=== PATIENT | female | born 1970 | race Caucasian/White ===

== ENCOUNTER → 2018-04-01 11:36 | Outpatient (CLI) | payer MEDICARE, SELFPAY ==
[2018-04-01 12:24] LABS: Absolute Neutrophil Count 1.7 X10^3/uL (2.0-7.7); Basophil# 0.03 X10^3/uL; Basophil% 0.7 % (0-1); Eosinophil# 0.09 X10^3/uL; Eosinophils% 2.1 % (0-5); Hematocrit 43.5 % (37-47); Lymphocyte % 47.9 % (19-41); Mean Corp Hgb Conc 34.5 g/gl (32-36); Mean Corpuscular Hgb 32.6 pg (27.0-32.0); Mean Corpuscular Volume 94.6 fL (81-99); Mean Platelet Vol. 11.3 fl (6.2-12.0); Monocyte# 0.44 X10^3/uL; Neutrophil # 1.71 X10^3/uL (2.7-7.7); Neutrophil % 39.1 % (47-70); Platelet Count 197 K/mm3 (150-450); RBC Distribution Width CV 11.6 % (11.6-14.6); RBC Distribution Width SD 39.9 fl (35.1-43.9); White Blood Count 4.4 K/mm3 (4.4-11.0)
[2018-04-01 12:25] LABS: POSITIVE COUNT NO; POSITIVE DIFFERENTIAL NO; POSITIVE MORPHOLOGY NO
[2018-04-01 12:57] LABS: Progesterone Level 0.19 ng/mL (See Comment)
[2018-04-01 13:54] LABS: ALB/GLOB Ratio 0.9 RATIO (0.9-2.4); AST(SGOT) 21 U/L (15-37); Alanine Aminotransfer ALT/SGPT 26 U/L (13-56); Albumin, Serum 3.4 g/dL (3.2-5.0); Alkaline Phosphatase 80 U/L (45-117); Anion Gap 7 (5-15); BUN 12 mg/dL (7-18); BUN/Creat Ratio 17.3 RATIO (10-20); Calcium,Total 8.6 mg/dL (8.5-10.1); Chloride 107 mmol/L (98-107); EST Glomerular Filtration Rate 96 mL/min (>60); Est Glom Filt Rate - Afr Amer 116 mL/min (>60); Estradiol 23.8 pg/mL; Globulin 3.7 g/dL (2.2-4.2); Glucose 94 mg/dL (74-106); Potassium 4.1 mmol/L (3.5-5.1); Protein, Total 7.1 g/dL (6.4-8.2); Sodium Level 140 mmol/L (136-145)
== END ==
PROVIDERS: Family Provider Family Medicine; PCP Family Medicine
DX: R63.5 Abnormal weight gain (principal); L85.3 Xerosis cutis; R61 Generalized hyperhidrosis; Z13.29 Encounter for screening for other suspected endocrine disorder; Z13.220 Encounter for screening for lipoid disorders
CPT/HCPCS: 36415; 80053; 82670; 84144; 84443; 85025

== ENCOUNTER 2019-01-10 14:41 | Emergency (ER) | payer MEDICARE, SELFPAY ==
[2019-01-10 14:42] VITALS: BP 135/97; PULSE 108; RESP 16; TEMP 36.1; O2SAT 96; BMI 20.2
--- NOTE | 2019-01-10 14:54 | RAD_ITS ---
STUDY: X-RAY - RIGHT TIBIA AND FIBULA REASON FOR EXAM: Female, 48 years old. Bump of the lateral leg without injury TECHNIQUE: 2 view(s) of the tibia and fibula were obtained. COMPARISON: None. FINDINGS: Normal visualized tibia. Normal visualized fibula. The soft tissue structures are unremarkable. RAD/Tibia & Fibula 2 Views IMPRESSION: Normal x-ray examination of the tibia and fibula. Electronically Signed: Evans Hassan MD (Brooks) at 15:27 EDT , Service support ,
--- NOTE | 2019-01-10 14:58 | ED.DCSUM_ITS ---
- ER Visit Summary Date of Service: 01/10/19 Chief Complaint: Pain History of Present Illness: The patient is a 48 F with pain in her right aguilar. She noticed the pain yesterday. It feels like pain she had several years ago when she had a fracture of her right lower leg. At that time, she did not have trauma, and her fracture was possibly attributed to her underlying history of neurofibromatosis. She does feel a lump in the area where she is having pain. Denies any calf swelling or tenderness. Denies any history of DVTs. No other related symptoms. Physical Examination: Right lower leg shows tenderness and induration at her distal third of her tibia laterally. Overlying skin unremarkable. Otherwise exam unremarkable. Test Results: X-rays ordered. Emergency Department Course and Treatment: Patient declined pain medicine. X-rays were negative. I do not visualize a fracture or other abnormality. No masses or abnormal findings. This is likely a soft tissue lesion. It may or may not be related to her neurofibromatosis. At this point, the patient is appropriate for outpatient follow-up. She may need further imaging. There is no indication for antibiotics, incision, or any other emergent treatment for this. Treatment Plan: Rest, ice, elevate. [id number] remedies for pain. Outpatient follow-up. Disposition: Discharge Impression: 1. Soft tissue swelling right leg This note was generated with [employer] dictation software. It may contain incorrect words, spelling, and punctuation that were not noted in review of the chart prior to signing ED Disposition - Plan for ED Patient: Referrals: [facility] ,Out of [Primary Care Provider] -
--- NOTE | 2019-01-10 15:40 | ED.DEP ---
ED Disposition - Plan for ED Patient: Instructions: CONTUSION, Soft Tissue Referrals: [facility] Doctor,Out of [Primary Care Provider] -
[2019-01-10 15:47] VITALS: RESP 15
== END 2019-01-10 15:47 | disposition home or self-care (01) ==
PROVIDERS: Emergency Provider Emergency Medicine
DX: M79.89 Other specified soft tissue disorders (principal)
CPT/HCPCS: 73590; 99282

== ENCOUNTER 2021-08-01 20:08 | Emergency (ER) | payer MEDICARE, SELFPAY ==
[2021-08-01 20:09] VITALS: BP 142/107; PULSE 98; RESP 16; TEMP 36.4; O2SAT 100; BMI 24.3
--- NOTE | 2021-08-01 21:11 | EDS_ITS ---
HPI History of Present Illness Chief Complaint: Edema Informant: patient Narrative Narrative: Patient presents with worsening swelling of the left leg. This started in October or November when she was exposed to red tide and justin salt water. She also states she gets chemotherapy for her neurofibromatosis and chemotherapy might be causing it. She was going to talk to her chemo doctor but he ended up leaving for [place] and never told her. Her primary physician did an ultrasound but it was about 2 months ago. She had some blood work done 3 or 4 months ago. She is here today because the left leg seems to be swelling more. Is normally just the foot but now is the lower part of the leg. She has no chest pain or trouble breathing or other complaints. She has no acute trauma. No fevers or chills. Nothing consistently makes it better or worse. PFSH [facility] Medical History Edema of left lower extremity Neurofibromatosis Home Medications doxepin 150 mg PO QHS 11/27/16 [History Last Taken Unknown] zolpidem 10 mg PO QHS PRN PRN 11/27/16 [History Last Taken Unknown] lamotrigine 75 mg PO QHS 01/10/19 [History Last Taken Unknown] selumetinib-vitamin E TPGS [Koselugo] 25 cap PO BID 08/01/21 [History Last Taken Unknown] Allergy/AdvReac Type Severity Reaction Status Date / Time No Known Allergies Allergy Verified 08/01/21 20:11 Social History Smoking Status: Never smoker [facility] ED Constitutional Constitutional ED: Denies chills or fever(s) Cardiovascular Cardiovascular: Denies chest pain or palpitations Respiratory/Chest Respiratory/Chest: Denies cough, dyspnea or sputum Gastrointestinal Gastrointestinal: Denies abdominal pain, nausea or vomiting Genitourinary Genitourinary ED: Denies dysuria Musculoskeletal Musculoskeletal: Reports other Details: See history of present illness. ; Denies arthralgias, back pain, myalgias or neck pain Neurologic Neurologic: Denies paresthesias or weakness Endocrine Endocrinology: Denies polydipsia or polyuria Allergic/Immunologic Allergic/Immunologic ED: Denies urticaria EXAM Physical Exam Const Vital Signs: 08/01/21 20:09 08/01/21 20:46 Temperature 97.5 F L Temperature Source Temporal Pulse Rate 98 Respiratory Rate 16 Respiratory Effort Normal Respiratory Pattern Normal Blood Pressure 142/107 H Blood Pressure Mean 118 Pulse Ox 100 Oxygen Delivery Method Room Air Positive well nourished and well developed General Appearance ED: well developed HEENT Reports moist mucous membranes Eyes General Eye ED: Negative for pale conjunctiva or scleral icterus Neck no JVD Resp normal respiratory effort Cardio regular rate Back/Spine no CVA tenderness Extremity Extremity Narrative: Patient has some slight swelling to the feet mostly on the left. The left leg does have a little swelling that rides about to the lower third of the lower leg only on the left. No distended veins. No tenderness s pecifically along the deep venous system. However there is asymmetry. Neuro oriented x3 Sensorium / Orientation: alert Psych mental status grossly normal Skin no rashes or lesions noted MDM MDM MDM Narrative Medical decision making narrative: Patient's blood work showed normal electrolytes renal function. Patient's ultrasound showed no DVT. Patient also had a cardiac echo just recently. She has had other blood work. She has had this edema for about 6 months. She uses compression hoses. We discussed elevating the legs using the compression hose. I do not think Lasix is going to be specifically beneficial or appropriate. She will follow up with her physician. Lab Data Attestation: I reviewed the patient's lab results. Labs: Laboratory Results - last 24 hr 08/01/21 21:45 Sodium 140 Potassium 4.0 Chloride 105 Carbon Dioxide 31.0 Anion Gap 4 L BUN 10 Creatinine 0.72 Estim Creat Clear Calc 84.11 Est GFR (MDRD) Af Amer 109 Est GFR (MDRD) Non-Af 90 BUN/Creatinine Ratio 13.8 Glucose 103 Calcium 9.5 Radiography Diagnostic Testing: Clinical Impression(s) from Imaging Studies Venous Duplex 08/01/21 21:25 IMPRESSION: Normal left lower extremity duplex venous ultrasound. Electronically Signed: Kartik Gan MD at 22:42 EDT , Discharge Plan Triage Chief Complaint: Edema ED Provider: Edgardo Ching Dx/Rx/DC Orders Clinical Impression: Edema of left lower extremity Instructions: ED Lymphedema Prescriptions: No Action doxepin 100 MG capsule 150 mg PO QHS RF: 0 zolpidem 5 MG tablet 10 mg PO QHS PRN PRN (Reason: Insomnia) RF: 0 lamotrigine 25 MG tablet 75 mg PO QHS RF: 0 Koselugo 25 mg capsule 25 cap PO BID RF: 0 Primary Care Provider: Care Physician,No Primary Referrals: Care Physician,No Primary [Primary Care Provider] - Activity Restrictions/Additional Instructions: Follow-up with your primary physician. Disposition Disposition: Home, Self Care
--- NOTE | 2021-08-01 21:25 | US_ITS ---
EXAM: US DUPLEX LEFT LOWER EXTREMITY VEINS CLINICAL INDICATION: LT CALF SWELLING TECHNIQUE: Real-time duplex ultrasound scan of the left lower extremity veins integrating B-mode two-dimensional vascular structure, Doppler spectral analysis, color flow Doppler imaging and compression. This report was created using [employer] report [employer] technology. COMPARISON: None. FINDINGS: DEEP VEINS: Unremarkable. No DVT in the visualized common femoral, femoral, proximal deep femoral or popliteal veins. The veins demonstrate normal color flow, are normally compressible, with normal phasic flow and/or augmentation response. SUPERFICIAL VEINS: Unremarkable. No thrombus in the visualized great saphenous vein. SOFT TISSUES: No acute findings. No popliteal cyst. US/Venous Duplex Imag/Limited/Uni IMPRESSION: Normal left lower extremity duplex venous ultrasound. Electronically Signed: Kartik Gan MD at 22:42 EDT ,
[2021-08-01 22:07] LABS: Anion Gap 4 (5-15); BUN 10 mg/dL (7-18); BUN/Creat Ratio 13.8 RATIO (10-20); Calcium,Total 9.5 mg/dL (8.5-10.1); Chloride 105 mmol/L (98-107); Creatinine, Serum 0.72 mg/dL (0.55-1.02); EST Glomerular Filtration Rate 90 mL/min (>60); Est Glom Filt Rate - Afr Amer 109 mL/min (>60); Estimated Creatinine Clearance 84.11 ml/min; Glucose 103 mg/dL (74-106); Sodium Level 140 mmol/L (136-145)
[2021-08-02 00:20] VITALS: BP 128/79; PULSE 91; RESP 18; O2SAT 99
== END 2021-08-02 00:21 | disposition home or self-care (01) ==
PROVIDERS: Emergency Provider Emergency Medicine; Visit Provider Emergency Medicine
DX: R60.0 Localized edema (principal); Q85.00 Neurofibromatosis, unspecified; Z79.899 Other long term (current) drug therapy
CPT/HCPCS: 80048; 93971; 99282; A4216

== ENCOUNTER → 2022-11-12 | Outpatient (CLI) | payer MEDICARE, SELFPAY | END | disposition home or self-care (01) | PROVIDERS: Visit Provider Physician Assistant | DX: R39.15 Urgency of urination (principal) | CPT/HCPCS: 87086; 87186 ==

== ENCOUNTER → 2022-12-17 | Outpatient (CLI) | payer MEDICARE, SELFPAY | END | disposition home or self-care (01) | PROVIDERS: Visit Provider Physician Assistant | DX: N39.0 Urinary tract infection, site not specified (principal) | CPT/HCPCS: 87086; 87088; 87186 ==

== ENCOUNTER 2024-06-15 13:30 | Outpatient (RCR) | payer MEDICARE, MEDICAID, SELFPAY ==
--- NOTE | 2024-02-19 12:39 | HP.PTEVAL_ITS ---
Patient's Visit Information Visit Information Visit Information: SANDRA NAVA is a 53 year old F referred to Physical Therapy by Dr. Ramandeep Almanzar DO with a diagnosis of NECK STIFFNESS ,CERVICOGENIC HEADACHE SYNDROME ,NEUROFIBROMATOSIS. Date of Evaluation: 02/19/24 Physical Therapist: Escobar Whelan PT, Cert MDT, OCS Visit Plan Frequency: 2x /Week Duration: 4 Weeks Plan: PT INTERVENTIONS MANUAL THERAPY STM/CERVICAL TRACTION , US ,CERVICAL /POSTURAL EX'S AND STRENGTHENING Subjective Subjective: This 53 female presents to physical therapy with cervical pain. Patient has had neck pain many years along with SORENSEN. Seen DR sandie PT ,tried baclofen and imaging MRI due to neurofibromatosis. Pain located in cervical occiput to to lower spine . Patient has migraines . Aggravating lifting with BUE ,turning ,sitting. Alleviating factors rest. C/O occasional paresthesia/tingling in hands. Symptoms affects sleeping. Patient denies dizziness/nausea/tinnitus maybe occasional. Patient has had prior tx . Patient condition QOL and function. Patient goals to decrease pain. SOCIAL: single VOCATION: disablity Pain Bilateral Neck: Pain Intensity (Out of 10): 6 Pain Intensity Range: 10 Objective Objective: POSTURE: mild forward posture ,slight forward head NEURO: denies paresthesia/tingling ,reflexes C5-6-7 1/2 AROM: BUE WFL PALAPTION: tender occiput /paraspinals CERVICAL ROM: flexion min loss ,extension min loss ,rotation min loss ,lateral flexion min loss ,retraction min loss MMT: BUE grossly 4/5 ,except shoulder 4-/5 Special Tests C/S Radiculapathy - Left Upper limb tension test: Negative C/S Radiculapathy - Right Upper limb tension test: Negative C/S Radiculapathy - Left Spurlings: Negative C/S Radiculapathy - Right Spurlings: Negative C/S Radiculapathy - Left Cervical distraction: Negative C/S Radiculapathy - Right Cervical distraction: Negative C/S Radiculapathy - Left Relief test: Negative C/S Radiculapathy - Right Relief test: Negative C/S Radiculapathy - Valsalva: Negative Sharp Sadia: Negative Vertebral Artery Test: Negative Alar Ligament Test: Negative Cervical Sitting: Protrusion - Mechanical Response: No effect Cervical Sitting: Protrusion - Symptoms During Testing: Increases Cervical Sitting: Protrusion - Symptoms After Testing: No worse Cervical Sitting: Retraction - Mechanical Response: No effect Cervical Sitting: Retraction - Symptoms During Testing: Increases Cervical Sitting: Retraction - Symptoms After Testing: No worse Cervical Sitting: Retraction-Extension - Mechanical Response: No effect Cerv Sitting: Retraction-Extension - Symptoms During Testing: Increases Cerv Sitting: Retraction-Extension - Symptoms After Testing: No worse Cervical Sitting: Sidebend Right - Mechanical Response: No effect Cervical Sitting: Sidebend Right - Symptoms During Testing: No effect Cervical Sitting: Sidebend Right - Symptoms After Testing: No effect Cervical Sitting: Sidebend Left - Mechanical Response: No effect Cervical Sitting: Sidebend Left - Symptoms During Testing: No effect Cervical Sitting: Sidebend Left - Symptoms After Testing: No effect Cervical Sitting: Rotation Right - Mechanical Response: No effect Cervical Sitting: Rotation Right - Symptoms During Testing: No effect Cervical Sitting: Rotation Right - Symptoms After Testing: No effect Cervical Sitting: Rotation Left - Mechanical Response: No effect Cervical Sitting: Rotation Left - Symptoms During Testing: No effect Cervical Sitting: Rotation Left - Symptoms After Testing: No effect Cervical Sitting: Flexion - Mechanical Response: No effect Cervical Sitting: Flexion - Symptoms During Testing: Increases Cervical Sitting: Flexion - Symptoms After Testing: No worse Balance/Special Test Scores Oswestry Neck Score: 25 Goals Goal 1:: Patient to be I with HEP for cervical Goal Time Frame: 4-6 Weeks Goal 2:: Patient to improve posture for ADL 80% of the time. Goal Time Frame: 4-6 Weeks Goal 3:: Patient to improve cervical ROM for function of recovery for ADLS and driving Goal Time Frame: 4-6 Weeks Goal 4:: Patient to improve neck oswestry score by 5 points to improve QOL Goal Time Frame: 4-6 Weeks Goal 5:: Patient to demonstrate 50% improvement with less pain and improved function Goal Time Frame: 4-6 Weeks Rehabilitation Potential Physical Therapy Diagnosis: This patient has cervical pain with chronic SORENSEN with pain with motion testing and position thus weakness of postural muscles has difficulty holding head up thus benefit from skilled Rehabilitation Potential: Good Anticipated Interventions Patient/Client Instruction: Educate patient on: Condition and Plan of Care For the Purpose of:: To decrease pain, To increase ROM, To improve muscle performance and motor function, To improve ability to perform ADL's, To increase tolerance to activity/condition/position, To improve ability of physical actions for home/community/work/leisure, To improve health of tissue, To decrease soft tissue restriction, To increase flexibility/ROM and To reduce risk of recurrence Therapeutic Exercise to Include: Strength training, Postural training, Flexibilty training, Active ROM and Scapular Strength/Stabilization For the Purpose of:: To decrease pain, To increase ROM, To improve muscle performance and motor function, To improve ability to perform ADL's, To increase tolerance to activity/condition/position, To improve ability of physical actions for home/community/work/leisure, To improve health of tissue, To decrease soft tissue restriction, To increase flexibility/ROM, To reduce risk of recurrence and To improve tolerance to ADL's Manual Therapy Techniques to Include: Mobilization and Soft tissue mobilization Comment: STM ,CERVICAL TARCTION For the Purpose of:: To decrease pain, To increase ROM, To improve nutrient delivery to tissue, To increase oxygenation perfusion, To improve health of tissue and To decrease soft tissue restriction TENS: Yes IF ES: Yes Cryotherapy (ice pack, ice massage): Yes Thermo therapy (hot pack): Yes Ultrasound (thermal/non thermal): Yes Intermittent cervical traction: Yes For the Purpose of:: To decrease pain, To increase ROM, To improve nutrient delivery to tissue, To increase oxygenation perfusion, To improve health of tissue, To decrease soft tissue restriction and To increase flexibility/ROM Text: Thank you for the opportunity to evaluate your patient. For Medicare and Medicare HMO plans, please review the plan of care and approve it. It will need to be FAXED BACK to us at [phone] for Medicare purposes. For Medicare only, by signing this I certify the plan of care. Please let me know if there are questions or concerns regarding this plan of care. Physician Signature: Date:
--- NOTE | 2024-03-18 12:49 | HP.PTREVAL_ITS ---
Re-Evaluation Intro: Dr. Ramandeep Almanzar, DO, It has been my pleasure to treat SANDRA NAVA over the last 8 visits for NECK STIFFNESS ,CERVICOGENIC HEADACHE SYNDROME ,NEUROFIBROMATOSIS. Please see the progress note below for an update on the physical therapy plan of care! Subjective Subjective: Helped with massage and US with pain and massage After tx feels great. Objective Objective/Function: * Patient will continue to benefit from skilled PT to address constant SORENSEN and pain but gradually improving with manual therapy* POSTURE: mild forward posture ,slight forward head NEURO: denies paresthesia/tingling ,reflexes C5-6-7 1/2 AROM: BUE WFL PALAPTION: tender occiput /paraspinals /upper traps/ CERVICAL ROM: flexion min loss ,extension min loss ,rotation min loss ,lateral flexion min loss ,retraction min loss MMT: BUE grossly 4/5 ,except shoulder 4-/5 Plan Plan Plan: FOCUS ON MANAUL THERAPY STM/TRACTION AND US/HEAT PT INTERVENTIONS MANUAL THERAPY STM/CERVICAL TRACTION , US ,CERVICAL /POSTURAL EX'S AND STRENGTHENING Balance/Gait/Functional tests Balance/Special Test Scores Oswestry Neck Score: 27 Goals Goals Goal 1:: Patient to be I with HEP for cervical Goal Time Frame: 4-6 Weeks Goal Progress: Progressing Goal 2:: Patient to improve posture for ADL 80% of the time. Goal Time Frame: 4-6 Weeks Goal Progress: Progressing Goal 3:: Patient to improve cervical ROM for function of recovery for ADLS and driving Goal Time Frame: 4-6 Weeks Goal Progress: Progressing Goal 4:: Patient to improve neck oswestry score by 5 points to improve QOL Goal Time Frame: 4-6 Weeks Goal Progress: Progressing Goal 5:: Patient to demonstrate 50% improvement with less pain and improved fun ction Goal Time Frame: 4-6 Weeks Goal Progress: Progressing Anticipated Interventions Anticipated Interventions Patient/Client Instruction: Educate patient on: Condition and Plan of Care For the Purpose of:: To decrease pain, To increase ROM, To improve muscle performance and motor function, To improve ability to perform ADL's, To increase tolerance to activity/condition/position, To improve ability of physical actions for home/community/work/leisure, To improve health of tissue, To decrease soft tissue restriction, To increase flexibility/ROM and To reduce risk of recurrence Therapeutic Exercise to Include: Strength training, Postural training, Flexibilty training, Active ROM and Scapular Strength/Stabilization For the Purpose of:: To decrease pain, To increase ROM, To improve muscle performance and motor function, To improve ability to perform ADL's, To increase tolerance to activity/condition/position, To improve ability of physical actions for home/community/work/leisure, To improve health of tissue, To decrease soft tissue restriction, To increase flexibility/ROM, To reduce risk of recurrence and To improve tolerance to ADL's Manual Therapy Techniques to Include: Mobilization and Soft tissue mobilization Comment: STM ,CERVICAL TARCTION For the Purpose of:: To decrease pain, To increase ROM, To improve nutrient delivery to tissue, To increase oxygenation perfusion, To improve health of tissue and To decrease soft tissue restriction TENS: Yes IF ES: Yes Cryotherapy (ice pack, ice massage): Yes Thermo therapy (hot pack): Yes Ultrasound (thermal/non thermal): Yes Intermittent cervical traction: Yes For the Purpose of:: To decrease pain, To increase ROM, To improve nutrient delivery to tissue, To increase oxygenation perfusion, To improve health of tissue, To decrease soft tissue restriction and To increase flexibility/ROM Re-Evaluation Ending Re-evaluation ending: Please do not hesitate to contact me at [phone] by phone or if you have questions or concerns regarding this new plan of care! Sincerely, Escobar Whelan PT, Cert MDT, OCS
--- NOTE | 2024-03-22 19:10 | HP.PTEVAL_ITS ---
Patient's Visit Information Visit Information Visit Information: SANDRA NAVA is a 53 year old F referred to Physical Therapy by Dr. Ramandeep Almanzar DO with a diagnosis of NECK STIFFNESS ,CERVICOGENIC HEADACHE SYNDROME ,NEUROFIBROMATOSIS. Date of Evaluation: 02/19/24 Physical Therapist: Escobar Whelan, PT, Cert MDT, OCS Visit Plan Frequency: 2x /Week Duration: 4 Weeks Plan: FOCUS ON [facility] THERAPY STM/TRACTION AND US/HEAT PT INTERVENTIONS MANUAL THERAPY STM/CERVICAL TRACTION , US ,CERVICAL /POSTURAL EX'S AND STRENGTHENING Subjective Subjective: This 53 female presents to physical therapy with cervical pain. Patient has had neck pain many years along with SORENSEN. Seen DR recommended PT ,tried baclofen and imaging MRI due to neurofibromatosis. Pain located in cervical occiput to to lower spine . Patient has migraines . Aggravating lifting with BUE ,turning ,sitting. Alleviating factors rest. C/O occasional paresthesia/tingling in hands. Symptoms affects sleeping. Patient denies dizziness/nausea/tinnitus maybe occasional. Patient has had prior tx . Patient condition QOL and function. Patient goals to decrease pain. SOCIAL: single VOCATION: disablity Pain Bilateral Neck: Pain Intensity (Out of 10): 5 Pain Intensity Range: 10 SORENSEN: Pain Intensity (Out of 10): 7 Objective Objective: POSTURE: mild forward posture ,slight forward head NEURO: denies paresthesia/tingling ,reflexes C5-6-7 1/2 AROM: BUE WFL PALAPTION: tender occiput /paraspinals CERVICAL ROM: flexion min loss ,extension min loss ,rotation min loss ,lateral flexion min loss ,retraction min loss MMT: BUE grossly 4/5 ,except shoulder 4-/5 Special Tests C/S Radiculapathy - Left Upper limb tension test: Negative C/S Radiculapathy - Right Upper limb tension test: Negative C/S Radiculapathy - Left Spurlings: Negative C/S Radiculapathy - Right Spurlings: Negative C/S Radiculapathy - Left Cervical distraction: Negative C/S Radiculapathy - Right Cervical distraction: Negative C/S Radiculapathy - Left Relief test: Negative C/S Radiculapathy - Right Relief test: Negative C/S Radiculapathy - Valsalva: Negative Sharp Sadia: Negative Vertebral Artery Test: Negative Alar Ligament Test: Negative Cervical Sitting: Protrusion - Mechanical Response: No effect Cervical Sitting: Protrusion - Symptoms During Testing: Increases Cervical Sitting: Protrusion - Symptoms After Testing: No worse Cervical Sitting: Retraction - Mechanical Response: No effect Cervical Sitting: Retraction - Symptoms During Testing: Increases Cervical Sitting: Retraction - Symptoms After Testing: No worse Cervical Sitting: Retraction-Extension - Mechanical Response: No effect Cerv Sitting: Retraction-Extension - Symptoms During Testing: Increases Cerv Sitting: Retraction-Extension - Symptoms After Testing: No worse Cervical Sitting: Sidebend Right - Mechanical Response: No effect Cervical Sitting: Sidebend Right - Symptoms During Testing: No effect Cervical Sitting: Sidebend Right - Symptoms After Testing: No effect Cervical Sitting: Sidebend Left - Mechanical Response: No effect Cervical Sitting: Sidebend Left - Symptoms During Testing: No effect Cervical Sitting: Sidebend Left - Symptoms After Testing: No effect Cervical Sitting: Rotation Right - Mechanical Response: No effect Cervical Sitting: Rotation Right - Symptoms During Testing: No effect Cervical Sitting: Rotation Right - Symptoms After Testing: No effect Cervical Sitting: Rotation Left - Mechanical Response: No effect Cervical Sitting: Rotation Left - Symptoms During Testing: No effect Cervical Sitting: Rotation Left - Symptoms After Testing: No effect Cervical Sitting: Flexion - Mechanical Response: No effect Cervical Sitting: Flexion - Symptoms During Testing: Increases Cervical Sitting: Flexion - Symptoms After Testing: No worse Balance/Special Test Scores Oswestry Neck Score: 27 Goals Goal 1:: Patient to be I with HEP for cervical Goal Time Frame: 4-6 Weeks Goal 2:: Patient to improve posture for ADL 80% of the time. Goal Time Frame: 4-6 Weeks Goal 3:: Patient to improve cervical ROM for function of recovery for ADLS and driving Goal Time Frame: 4-6 Weeks Goal 4:: Patient to improve neck oswestry score by 5 points to improve QOL Goal Time Frame: 4-6 Weeks Goal 5:: Patient to demonstrate 50% improvement with less pain and improved function Goal Time Frame: 4-6 Weeks Rehabilitation Potential Physical Therapy Diagnosis: This patient has cervical pain with chronic SORENSEN with pain with motion testing and position thus weakness of postural muscles has difficulty holding head up thus benefit from skilled Rehabilitation Potential: Good Anticipated Interventions Patient/Client Instruction: Educate patient on: Condition and Plan of Care For the Purpose of:: To decrease pain, To increase ROM, To improve muscle performance and motor function, To improve ability to perform ADL's, To increase tolerance to activity/condition/position, To improve ability of physical actions for home/community/work/leisure, To improve health of tissue, To decrease soft tissue restriction, To increase flexibility/ROM and To reduce risk of recurrence Therapeutic Exercise to Include: Strength training, Postural training, Flexi bilty training, Active ROM and Scapular Strength/Stabilization For the Purpose of:: To decrease pain, To increase ROM, To improve muscle performance and motor function, To improve ability to perform ADL's, To increase tolerance to activity/condition/position, To improve ability of physical actions for home/community/work/leisure, To improve health of tissue, To decrease soft tissue restriction, To increase flexibility/ROM, To reduce risk of recurrence and To improve tolerance to ADL's Manual Therapy Techniques to Include: Mobilization and Soft tissue mobilization Comment: STM ,CERVICAL TARCTION For the Purpose of:: To decrease pain, To increase ROM, To improve nutrient delivery to tissue, To increase oxygenation perfusion, To improve health of tissue and To decrease soft tissue restriction TENS: Yes IF ES: Yes Cryotherapy (ice pack, ice massage): Yes Thermo therapy (hot pack): Yes Ultrasound (thermal/non thermal): Yes Intermittent cervical traction: Yes For the Purpose of:: To decrease pain, To increase ROM, To improve nutrient delivery to tissue, To increase oxygenation perfusion, To improve health of tissue, To decrease soft tissue restriction and To increase flexibility/ROM Text: Thank you for the opportunity to evaluate your patient. For Medicare and Medicare HMO plans, please review the plan of care and approve it. It will need to be FAXED BACK to us at [phone] for Medicare purposes. For Medicare only, by signing this I certify the plan of care. Please let me know if there are questions or concerns regarding this plan of care. Physician Signature: Date:
--- NOTE | 2024-04-14 13:22 | HP.PTREVAL ---
Re-Evaluation Intro: Dr. Ramandeep Almanzar, DO, It has been my pleasure to treat SANDRA NAVA over the last 17 visits for NECK STIFFNESS ,CERVICOGENIC HEADACHE SYNDROME ,NEUROFIBROMATOSIS. Please see the progress note below for an update on the physical therapy plan of care! Subjective Subjective: When your done with PT Im able to do more with ADLS and housework task and no burning Objective Objective/Function: * Patient will continue to benefit from skilled PT with reduction of SORENSEN which improves function to address constant SORENSEN and pain but gradually improving with manual therapy* POSTURE: mild forward posture ,slight forward head NEURO: denies paresthesia/tingling ,reflexes C5-6-7 1/2 AROM: BUE WFL PALAPTION: tender occiput /paraspinals /upper traps/ CERVICAL ROM: flexion WFL ,extension WFL ,rotation WFL s ,lateral flexion min loss ,retraction WFL MMT: BUE grossly 4/5 ,except shoulder 4-/5 Plan Plan Plan: FOCUS ON [facility] STM/TRACTION AND US/HEAT PT INTERVENTIONS MANUAL THERAPY STM/CERVICAL TRACTION , US ,CERVICAL /POSTURAL EX'S AND STRENGTHENING Balance/Gait/Functional tests Balance/Special Test Scores Oswestry Neck Score: 27 Goals Goals Goal 1:: Patient to be I with HEP for cervical Goal Time Frame: 4-6 Weeks Goal Progress: Progressing Goal 2:: Patient to improve posture for ADL 80% of the time. Goal Time Frame: 4-6 Weeks Goal Progress: Progressing Goal 3:: Patient to improve cervical ROM for function of recovery for ADLS and driving Goal Time Frame: 4-6 Weeks Goal Progress: Progressing Goal 4:: Patient to improve neck oswestry score by 5 points to improve QOL Goal Time Frame: 4-6 Weeks Goal Progress: Progressing Goal 5:: Patient to demonstrate 50% improvement with less pain and improved function Goal Time Frame: 4-6 Weeks Goal Progress: Progressing Anticipated Interventions Anticipated Interventions Patient/Client Instruction: Educate patient on: Condition and Plan of Care For the Purpose of:: To decrease pain, To increase ROM, To improve muscle performance and motor function, To improve ability to perform ADL's, To increase tolerance to activity/condition/position, To improve ability of physical actions for home/community/work/leisure, To improve health of tissue, To decrease soft tissue restriction, To increase flexibility/ROM and To reduce risk of recurrence Therapeutic Exercise to Include: Strength training, Postural training, Flexibilty training, Active ROM and Scapular Strength/Stabilization For the Purpose of:: To decrease pain, To increase ROM, To improve muscle performance and motor function, To improve ability to perform ADL's, To increase tolerance to activity/condition/position, To improve ability of physical actions for home/community/work/leisure, To improve health of tissue, To decrease soft tissue restriction, To increase flexibility/ROM, To reduce risk of recurrence and To improve tolerance to ADL's Manual Therapy Techniques to Include: Mobilization and Soft tissue mobilization Comment: STM ,CERVICAL TARCTION For the Purpose of:: To decrease pain, To increase ROM, To improve nutrient delivery to tissue, To increase oxygenation perfusion, To improve health of tissue and To decrease soft tissue restriction TENS: Yes IF ES: Yes Cryotherapy (ice pack, ice massage): Yes Thermo therapy (hot pack): Yes Ultrasound (thermal/non thermal): Yes Intermittent cervical traction: Yes For the Purpose of:: To decrease pain, To increase ROM, To improve nutrient delivery to tissue, To increase oxygenation perfusion, To improve health of tissue, To decrease soft tissue restriction and To increase flexibility/ROM Re-Evaluation Ending Re-evaluation ending: Please do not hesitate to contact me at [phone] by phone or if you have questions or concerns regarding this new plan of care! Sincerely, Escobar Whelan, PT, Cert MDT, OCS
--- NOTE | 2024-05-13 13:00 | HP.PTREVAL ---
Re-Evaluation Intro: Dr. Ramandeep Almanzar, DO, It has been my pleasure to treat SANDRA NAVA over the last 25 visits for NECK STIFFNESS ,CERVICOGENIC HEADACHE SYNDROME ,NEUROFIBROMATOSIS. Please see the progress note below for an update on the physical therapy plan of care! Subjective Subjective: Symptoms help for couple days the return Migraines worse when not in PT Objective Objective/Function: * Patient will continue to benefit from skilled PT with reduction of SORENSEN which improves function to address constant SORENSEN and pain but gradually improving with manual therapy* POSTURE: mild forward posture ,slight forward head NEURO: denies paresthesia/tingling ,reflexes C5-6-7 1/2 AROM: BUE WFL PALAPTION: tender occiput /paraspinals /upper traps/ CERVICAL ROM: flexion WFL ,extension WFL ,rotation WFL s ,lateral flexion min loss ,retraction WFL MMT: BUE grossly 4/5 ,except shoulder 4-/5 Plan Plan Plan: FOCUS ON [facility]AP[facility] STM/TRACTION AND US/HEAT PT INTERVENTIONS MANUAL THERAPY STM/CERVICAL TRACTION , US ,CERVICAL /POSTURAL EX'S AND STRENGTHENING Balance/Gait/Functional tests Balance/Special Test Scores Oswestry Neck Score: 24 Goals Goals Goal 1:: Patient to be I with HEP for cervical Goal Time Frame: 4-6 Weeks Goal Progress: Progressing Goal 2:: Patient to improve posture for ADL 80% of the time. Goal Time Frame: 4-6 Weeks Goal Progress: Progressing Goal 3:: Patient to improve cervical ROM for function of recovery for ADLS and driving Goal Time Frame: 4-6 Weeks Goal Progress: Progressing Goal 4:: Patient to improve neck oswestry score by 5 points to improve QOL Goal Time Frame: 4-6 Weeks Goal Progress: Progressing Goal 5:: Patient to demonstrate 50% improvement with less pain and improved function Goal Time Frame: 4-6 Weeks Goal Progress: Progressing Anticipated Interventions Anticipated Interventions Patient/Client Instruction: Educate patient on: Condition and Plan of Care For the Purpose of:: To decrease pain, To increase ROM, To improve muscle performance and motor function, To improve ability to perform ADL's, To increase tolerance to activity/condition/position, To improve ability of physical actions for home/community/work/leisure, To improve health of tissue, To decrease soft tissue restriction, To increase flexibility/ROM and To reduce risk of recurrence Therapeutic Exercise to Include: Strength training, Postural training, Flexibilty training, Active ROM and Scapular Strength/Stabilization For the Purpose of:: To decrease pain, To increase ROM, To improve muscle performance and motor function, To improve ability to perform ADL's, To increase tolerance to activity/condition/position, To improve ability of physical actions for home/community/work/leisure, To improve health of tissue, To decrease soft tissue restriction, To increase flexibility/ROM, To reduce risk of recurrence and To improve tolerance to ADL's Manual Therapy Techniques to Include: Mobilization and Soft tissue mobilization Comment: STM ,CERVICAL TARCTION For the Purpose of:: To decrease pain, To increase ROM, To improve nutrient delivery to tissue, To increase oxygenation perfusion, To improve health of tissue and To decrease soft tissue restriction TENS: Yes IF ES: Yes Cryotherapy (ice pack, ice massage): Yes Thermo therapy (hot pack): Yes Ultrasound (thermal/non thermal): Yes Intermittent cervical traction: Yes For the Purpose of:: To decrease pain, To increase ROM, To improve nutrient delivery to tissue, To increase oxygenation perfusion, To improve health of tissue, To decrease soft tissue restriction and To increase flexibility/ROM Re-Evaluation Ending Re-evaluation ending: Please do not hesitate to contact me at [phone] by phone or if you have questions or concerns regarding this new plan of care! Sincerely, Escobar Whelan, PT, Cert MDT, OCS
--- NOTE | 2024-06-15 14:20 | HP.PTDCSUM ---
Discharge Summary D/C summary: It has been my pleasure to treat SANDRA NAVA referred by Dr. Ramandeep Almanzar DO, with the diagnosis of NECK STIFFNESS ,CERVICOGENIC HEADACHE SYNDROME ,NEUROFIBROMATOSIS for a total of 34 visit(s). Discharge Date: 06/15/24 Please see the following information for a summary of their discharge status. Subjective Subjective: Doing alot better ,need to find new DR Pain Bilateral Neck: Pain Intensity (Out of 10): 0 SORENSEN: Pain Intensity (Out of 10): 0 Overall Improvement % Improvement: 75 Objective Objective/Function: POSTURE: mild forward posture ,slight forward head NEURO: denies paresthesia/tingling ,reflexes C5-6-7 1/2 AROM: BUE WFL PALAPTION: tender occiput /paraspinals /upper traps/ CERVICAL ROM: flexion WFL ,extension min ,rotation WFL s ,lateral flexion min loss ,retraction WFL MMT: BUE grossly 4/5 ,except shoulder 4-/5 Goals Goal 1:: Patient to be I with HEP for cervical Goal Progress: Goal Met Goal 2:: Patient to improve posture for ADL 80% of the time. Goal Progress: Goal Met Goal 3:: Patient to improve cervical ROM for function of recovery for ADLS and driving Goal Progress: Goal Met Goal 4:: Patient to improve neck oswestry score by 5 points to improve QOL Goal Progress: Progressing Goal 5:: Patient to demonstrate 50% improvement with less pain and improved function Goal Progress: Progressing Plan Plan: D/C D/C Information Discharge Comments: hep d/c sentence: If there are questions or concerns regarding this patient's physical therapy, please feel free to call me at [phone]. Thank you for the referral of this patient. Sincerely, Escobar Whelan, PT, Cert MDT, OCS Balance/Gait/Functional tests Balance/Special Test Scores Oswestry Neck Score: 6 Improvement % Improvement: 75
== END 2024-06-15 19:00 | disposition home or self-care (01) ==
LOC: PT 13:30
PROVIDERS: Referring Provider Family Medicine; Visit Provider Family Medicine
DX: M43.6 Torticollis (principal); Q85.00 Neurofibromatosis, unspecified; G44.86 Cervicogenic headache; G44.59 Other complicated headache syndrome
CPT/HCPCS: 97035; 97110; 97140; 97162; 97530

== ENCOUNTER 2024-11-28 21:12 | Emergency (ER) | payer MEDICARE, MEDICAID, SELFPAY ==
[2024-11-28 21:13] VITALS: BP 132/88; PULSE 90; RESP 16; TEMP 36.5; O2SAT 100; BMI 23.8
--- NOTE | 2024-11-28 21:22 | RAD_ITS ---
PROCEDURE: HAND MIN 3 VIEWS 11/28/2024 REASON FOR EXAM: FINGER PAIN TECHNIQUE: HAND MIN 3 VIEWS COMPARISON: No FINDINGS: Acute, minimally displaced fracture, 4th digit middle phalangeal head, intra- articular extension. No dislocation. RAD/Hand Min 3 Views IMPRESSION: 4th digit injury. Reading [facility]
--- OUTSIDE RECORDS SUMMARY | 2024-11-28 22:44 | XMS RPT_ITS | CCD ---
Author Organization [facility] Care Team Providers Care Director Of Neurology Name Role Phone Rings, Rigo Unavailable Unavailable Rings, Rigo Unavailable Unavailable No Doctor Assigned, Nodr Unavailable Unavail able Van Nostran, Ramandeep Unavailable Unavailable Van Nostran, Ramandeep E Unavailable Unavailabl e Ismael Monzon Unavailable Unavailable Van Nostran, Ramandeep E Unavailable [phone] Unavailable Unavailable Garcia Rose Primary Care Provider Van Nostran DO, Ramandeep E Primary Care Provider Unavailable Unavailable Van Nostran DO, Ramandeep E Primary Care Provider Van Nostran DO, Ramandeep E Primary Care Provider VAN NOSTRAN, RAMANDEEP E Primary Care Unavailabl e LOBBOUS, DRE Referring Unavailable LOBBOUS, DRE Referring Unavailable VAN NOSTRAN, RAMANDEEP E Primary Care Unavailabl e Melissa CALIXTO, Dre Unavailable Care Physician, No Primary Primary Care Provider Unavailable Care Physician, No Primary Referring Provider Un available Ariel YEPEZ, LUCHO Blanton Attending Provider VAN NOSTRAN, DO RAMANDEEP E Primary Care Unavail able VAN NOSTRAN, DO RAMANDEEP E Attending Unavail able VAN NOSTRAN, DO RAMANDEEP E Referring Unavail able VAN NOSTRAN, DO RAMANDEEP E Attending Unavail able VAN NOSTRAN, DO RAMANDEEP E Referring Unavail able VAN NOSTRAN, DO RAMANDEEP E Primary Care Unavail able VAN NOSTRAN, DO RAMANDEEP E Primary Care Unavail able Dr. Lori Chan Attending Unavailab Dr. Lori Cool Referring Unavailab le Van Nostran DO, Ramandeep E Primary Care Provider Van Nostran DO, Ramandeep E Unavailable Van Nostran DO, Ramandeep E Primary Care Provider VAN NOSTRAN, RAMANDEEP E Referring Unavailabl e VAN NOSTRAN, RAMANDEEP E Primary Care Unavailabl e VanNostran, Ramandeep Referring Unavailable VanNostran, Ramandeep Attending Unavailable Care Physician, No Primary Primary Care Unava ilable Van Nostran DO, Ramandeep E Unavailable Osmar CALIXTO, Michelle Ramos Primary Care Provider VAN NOSTRAN, RAMANDEEP E Primary Care Unavailabl e VAN NOSTRAN, RAMANDEEP E Referring Unavailabl e VAN NOSTRAN, RAMANDEEP E Primary Care Unavailabl e MICHELLE MENCHACA Referring Unavailable MICHELLE MENCHACA Primary Care Unavailable Vannostran , Ramandeep [place] Primary Care Provid er Michelle Menchaca MD Unavailable [phone] LOBBOUS, DRE Attending Unavailable LOBBOUS, DRE Referring Unavailable VANNOSTRAN, RAMANDEEP TAMARA Primary Care Unavai lable LOBBOUS, DRE Referring Unavailable VANNOSTRAN, RAMANDEEP TAMARA Primary Care Unavai lable LOBBOUS, DRE Referring Unavailable VANNOSTRAN, RAMANDEEP TAMARA Primary Care Unavai lable [facility] Unavai lable CANDIDO CHAVEZ Attending Unavailable VANNOSTRAN, RAMANDEEP TAMARA Primary Care Unavai lable LOBBOUS, DRE Referring Unavailable VANNOSTRAN, RAMANDEEP TAMARA [facility] Unavai lable VAN NOSRAMANDEEP MAYS Attending Unavailabl e VAN NOSTRAN, RAMANDEEP Holt Primary Care Unavailabl e MICHELLE MENCHACA Attending Unavailable MICHELLE MENCHACA Primary Care Unavailable MICHELLE MENCHACA Attending Unavailable MICHELLE MENCHACA Primary Care Unavailable Allergies Allergy Classification Reported Allergen(s) Allergy Type Date of Onset Reaction(s) Facility Anti-Epileptic Agents (2 sources) gabapentin Drug Allergy 2 Other: See Comments [facility] Work Phone: Opioid Agonists (4 sources) Methadone Drug Allergy 2 Mental Status Change [facility] Pollen (2 sources) Tree and shrub pollen Substance Allergy 2 Other: See Comments [facility] selumetinib (2 sources) selumetinib Drug Allergy 2 Other: See Comments [facility] (1 source) No Known Medication Allergies; Translations: [No Known Medication Allergies] Propensity to adverse reactions to drug (disorder) [facility] Repository (20 sources) gabapentin; Translations: [GABAPENTIN] Drug Allergy 2 Other: See Comments, Other [facility] Work Phone: (20 sources) Methadone; Translations: [METHADONE] Drug Allergy 2 Mental Status Change, Other [facility] Work Phone: (20 sources) selumetinib; Translations: [SELUMETINIB- TAMIN E TPGS] Drug Allergy 2 Other: See Comments, [facility] Work Phone: (20 sources) traMADol; Translations: [TRAMADOL] Drug Allergy 2 Mental Status Change, Unknown [facility] Work Phone: (20 sources) Tree and shrub pollen; Translations: [TREE AND SHRUB POLLEN] Drug Allergy 2 Other: See Comments, Other [facility] Work Phone: (20 sources) Venom-Wasp; Translations: [VENOM-WASP] Drug Allergy 2 Anaphylaxis [facility] Work Phone: (16 sources) selumetinib; Translations: [SELUMETINIB] Drug Allergy 2 Rash [facility] Work Phone: (10 sources) rizatriptan; Translations: [RIZATRIPTAN] Drug Allergy 4 Other [facility] (10 sources) SUMAtriptan; Translations: [SUMATRIPTAN] Drug Allergy 4 Other [facility] Work Phone: (7 sources) selumetinib Drug Allergy 2 Other, Other: See Comments [facility] Work Phone: Medications Current Medications Medication Drug Class(es) Dates Sig (Normalized) Sig (Original) Calcium Carbonate / vitamin D3 (9 sources) calcium carbonate/vitamin D3 (CALCIUM 600 + D,3, ORAL) Take by mouth. Active calcium carbonat e/vitamin D3 (CALCIUM 600 + D,3, ORAL) Take by mouth. 0 Active cephalexin 500 mg oral capsule (1 source) Cephalosporin Antibacterial Start: 01-14-2023 End: 02-03-2023 take 1 capsule by mouth three times daily cephalexin (Keflex) 500 mg capsule Indications: Recurrent urinary tract infection Take 1 capsule (500 mg) by mouth 3 times a day for 20 days. 30 capsule 1 01/14/2023 02/03/2023 Active cholecalciferol 0.05 mg oral tablet (9 sources) Vitamin D take 1 tablet by mouth once daily cholecalciferol (Vitamin D3) 50 MCG (2000 UT) tablet Take 1 tablet (50 mcg) by mouth once daily. Active cranberry preparation 500 mg oral capsule (9 sources) Non-Standardized Food Allergenic Extract, Non-Standardized Plant Allergenic Extract cranberry 500 mg capsule Take by mouth. Active cranberry 500 mg capsule Take by mouth. 0 Active doxepin hydrochloride 25 mg oral capsule (20 sources) Tricyclic Antidepressant Start: 10-15-2024 doxepin (SINEquan) 2 5 mg capsule Indications: Neurofibromatosis (Multi) Week 1,2 and 3 : 3 capsule (75 mg) every day Week 4, 5 and 6 : 2 capsule (50 mg) every day . Week 7, 8 and 9: 1 capsule (25 mg ) every day then stop 126 capsule 10/15/2024 Active Start: 12-04-2022 End: 01-14-2023 doxepin (SINEquan) 50 mg cap sirena Indications: Anxiety Take 1 capsule (50 mg) by mouth as needed at bedtime for sleep (pain and insomnia). 30 capsule 3 12/04/2022 01/14/2023 Discontinued (Med List Cleanup) Start: 01-16-2021 Doxepin HCl - 50 MG Oral Capsule take 1 capsule by mouth at bedtime for 1 week then 2 capsules by ... (REFER TO PRESCRIPTION NOTES). Quantity: 30 Refills: 0 Ordered: 13-Sep-2021 Ramandeep Tom DO Start : 16-Jan-2021 Active Start: 07-12-2017 take 150 mg by mouth at bedtim e Doxepin Active 150 MG PO AT BEDTIME November 27, 2016 12:00am Start: 07-24-2005 End: 11-27-2024 DOXEPIN 100 MG CAP Take one( 1) tablet daily at bedtime. 30 1 07/24/2005 11/08/2024 Discontinued Comment on above: Take one(1) tablet d aily at bedtime. including partially visualized nodules extending to the right greater than left sacral foramina, are similar to previous. No new or enlarging nodule is identified. No extension to the spinal canal. Canal and foramina: L1-2: Disc bulge and facet hypertrophy without canal or foraminal narrowing. L2-3: Disc bulge and facet hypertrophy without canal or foraminal narrowing. L3-4: Disc bulge, facet hypertrophy, and ligament flavum thickening with mild narrowing of both subarticular recesses and neural foramina, similar to previous. L4-5: Disc bulge, facet hypertrophy, and ligamentum flavum thickening with diffuse mild spinal canal narrowing and moderate bilateral neural foramen narrowing, similar to previous. L5-S1: Disc bulge and facet hypertrophy with mild bilateral neural foramen narrowing. Sacrum and iliac wings: The visualized sacrum and iliac wings are within normal limits. IMPRESSION IMPRESSION: Innumerable para (more content not included)... [facility] MRI CERVICAL SPINE WO/W IVCO Non 10-26-2024 MRI CERVICAL SPINE WO/W IVCON * * *Final Report* * * DATE OF EXAM: Oct 26 2024 9:09AM [facility] [id number] - MRI CERVICAL SPINE WO/W IVCON / PROCEDURE REASON: multiple diagnoses * * * * Physician Interpretation * * * * EXAMINATION: MRI CERVICAL SPINE WO/W IVCON, MRI LUMBAR SPINE WO/W IVCON, MRI THORACIC SPINE WO/W IVCON CLINICAL HISTORY: Nerve sheath tumor; neurofibromatosis status post selumetinib TECHNIQUE: Routine cervical, thoracic, and lumbosacral spine MR protocol without and with intravenous gadolinium. Contrast: 7 mL Elucirem IV COMPARISON: Complete spine MRI, 10/21/2023 and 10/08/2022 RESULT: Counting reference: Craniocervical and lumbosacral junctions. For the purposes of this report, L4-5 is considered the level of the iliac crest and assume there are 5 lumbar-type vertebrae. Anatomic variant: None. Localizer images: T2 hyperintense renal cysts. Additional well-circumscribed T2 hyperintense soft tissue nodules, for example in the right greater than left chest wall, likely represent additional neurofibromas. CERVICAL: Alignment: Reversal normal cervical lordosis with mild anterolisthesis at C2-3 and C3-4, similar to previous. Craniocervical junction: Craniocervical junction is normal. Cord: The cervical spinal cord is within normal limits of signal intensity and morphology. No abnormal enhancement. Bone marrow signal/fracture: Degenerative endplate changes without associated marrow edema or enhancement. No focal marrow lesion. No evidence of prior fracture. Cervical soft tissues: T2 hyperintense enhancing soft tissue nodules, the largest measuring up to 2.9 x 2.3 x 6.1 cm in the left carotid space, are similar to previous. No extension to the spinal canal. Canal and foramina: C2-3: Disc osteophyte complex without canal or foraminal narrowing. C3-4: Disc osteophyte complex with mild spinal canal narrowing, similar to previous. C4-5: Disc osteophyte complex with mild spinal canal narrowing, similar to previous. C5-6: Disc osteophyte complex, ligamentum flavum thickening, and facet and uncovertebral hypertrophy with moderate spinal canal narrowing as well as mild right and moderate left neural foramen narrowing, similar to previous. C6-7: Disc osteophyte complex, ligamentum flavum thickening, and facet and uncovertebral hypertrophy with mild spinal canal narrowing, similar to previous. C7-T1: No canal or foraminal narrowing. THORACIC: Alignment: Alignment is anatomic. Cord: The thoracic spinal cord is within normal limits of signal intensity and morphology. No abnormal enhancement. Bone marrow signal/fracture: Degenerative endplate changes without associated marrow edema or enhancement. A few small T1 hyperintense nodules may represent focal fatty marrow or benign hemangiomas, no other focal marrow lesion. No evidence of prior fracture. Thoracic soft tissues: T2 hyperintense enhancing soft tissue nodules most pronounced in the upper thoracic spine are similar to previous. For example, a 2.3 x 4 x 1 cm nodule at the level of T2 (series 21, image 7) and a 3.3 x 2.9 cm nodule at the level of T3 (image 21) are unchanged from previous. No enlarging masses identified. No extension to the spinal canal. Canal and foramina: No significant thoracic canal or foraminal stenosis. LUMBAR: Alignment: Alignment is anatomic. Bone marrow signal/fracture: Degenerative endplate changes with associated mild marrow edema at L2-3. No focal marrow lesion. No evidence of prior fracture. Conus: The visualized spinal cord is normal in morphology and signal intensity. Questionable enhancement along the cauda equina nerve roots inferiorly is similar to previous and may be related to small neurofibromas. Paraspinal soft tissues: Innumerable T2 hyperintense enhancing retroperitoneal and paraspinal nodules, including partially visualized nodules extending to the right greater than left sacral foramina, are similar to previous. No new or enlarging nodule is identified. No extension to the spinal canal. Canal and foramina: L1-2: Disc bulge and facet hypertrophy without canal or foraminal narrowing. L2-3: Disc bulge and facet hypertrophy without canal or foraminal narrowing. L3-4: Disc bulge, facet hypertrophy, and ligament flavum thickening with mild narrowing of both subarticular recesses and neural foramina, similar to previous. L4-5: Disc bulge, facet hypertrophy, and ligamentum flavum thickening with diffuse mild spinal canal narrowing and moderate bilateral neural foramen narrowing, similar to previous. L5-S1: Disc bulge and facet hypertrophy with mild bilateral neural foramen narrowing. Sacrum and iliac wings: The visualized sacrum and iliac wings are within normal limits. IMPRESSION: Innumerable paraspinal soft tissue masses are similar to previous and consistent with the patient's known neurofibromatosis, no evidence of progressive disease. Stable degenerative (more content not included)... Normal [facility] MRI LUMBAR SPINE WO/W IVCONo n 10-26-2024 MRI LUMBAR SPINE WO/W IVCON * * *Final Report* * * DATE OF EXAM: Oct 26 2024 9:09AM [facility] 0304 - MRI LUMBAR SPINE WO/W IVCON / PROCEDURE REASON: multiple diagnoses * * * * Physician Interpretation * * * * EXAMINATION: MRI CERVICAL SPINE WO/W IVCON, MRI LUMBAR SPINE WO/W IVCON, MRI THORACIC SPINE WO/W IVCON CLINICAL HISTORY: Nerve sheath tumor; neurofibromatosis status post selumetinib TECHNIQUE: Routine cervical, thoracic, and lumbosacral spine MR protocol without and with intravenous gadolinium. Contrast: 7 mL Elucirem IV COMPARISON: Complete spine MRI, 10/21/2023 and 10/08/2022 RESULT: Counting reference: Craniocervical and lumbosacral junctions. For the purposes of this report, L4-5 is considered the level of the iliac crest and assume there are 5 lumbar-type vertebrae. Anatomic variant: None. Localizer images: T2 hyperintense renal cysts. Additional well-circumscribed T2 hyperintense soft tissue nodules, for example in the right greater than left chest wall, likely represent additional neurofibromas. CERVICAL: Alignment: Reversal normal cervical lordosis with mild anterolisthesis at C2-3 and C3-4, similar to previous. Craniocervical junction: Craniocervical junction is normal. Cord: The cervical spinal cord is within normal limits of signal intensity and morphology. No abnormal enhancement. Bone marrow signal/fracture: Degenerative endplate changes without associated marrow edema or enhancement. No focal marrow lesion. No evidence of prior fracture. Cervical soft tissues: T2 hyperintense enhancing soft tissue nodules, the largest measuring up to 2.9 x 2.3 x 6.1 cm in the left carotid space, are similar to previous. No extension to the spinal canal. Canal and foramina: C2-3: Disc osteophyte complex without canal or foraminal narrowing. C3-4: Disc osteophyte complex with mild spinal canal narrowing, similar to previous. C4-5: Disc osteophyte complex with mild spinal canal narrowing, similar to previous. C5-6: Disc osteophyte complex, ligamentum flavum thickening, and facet and uncovertebral hypertrophy with moderate spinal canal narrowing as well as mild right and moderate left neural foramen narrowing, similar to previous. C6-7: Disc osteophyte complex, ligamentum flavum thickening, and facet and uncovertebral hypertrophy with mild spinal canal narrowing, similar to previous. C7-T1: No canal or foraminal narrowing. THORACIC: Alignment: Alignment is anatomic. Cord: The thoracic spinal cord is within normal limits of signal intensity and morphology. No abnormal enhancement. Bone marrow signal/fracture: Degenerative endplate changes without associated marrow edema or enhancement. A few small T1 hyperintense nodules may represent focal fatty marrow or benign hemangiomas, no other focal marrow lesion. No evidence of prior fracture. Thoracic soft tissues: T2 hyperintense enhancing soft tissue nodules most pronounced in the upper thoracic spine are similar to previous. For example, a 2.3 x 4 x 1 cm nodule at the level of T2 (series 21, image 7) and a 3.3 x 2.9 cm nodule at the level of T3 (image 21) are unchanged from previous. No enlarging masses identified. No extension to the spinal canal. Canal and foramina: No significant thoracic canal or foraminal stenosis. LUMBAR: Alignment: Alignment is anatomic. Bone marrow signal/fracture: Degenerative endplate changes with associated mild marrow edema at L2-3. No focal marrow lesion. No evidence of prior fracture. Conus: The visualized spinal cord is normal in morphology and signal intensity. Questionable enhancement along the cauda equina nerve roots inferiorly is similar to previous and may be related to small neurofibromas. Paraspinal soft tissues: Innumerable T2 hyperintense enhancing retroperitoneal and paraspinal nodules, including partially visualized nodules extending to the right greater than left sacral foramina, are similar to previous. No new or enlarging nodule is identified. No extension to the spinal canal. Canal and foramina: L1-2: Disc bulge and facet hypertrophy without canal or foraminal narrowing. L2-3: Disc bulge and facet hypertrophy without canal or foraminal narrowing. L3-4: Disc bulge, facet hypertrophy, and ligament flavum thickening with mild narrowing of both subarticular recesses and neural foramina, similar to previous. L4-5: Disc bulge, facet hypertrophy, and ligamentum flavum thickening with diffuse mild spinal canal narrowing and moderate bilateral neural foramen narrowing, similar to previous. L5-S1: Disc bulge and facet hypertrophy with mild bilateral neural foramen narrowing. Sacrum and iliac wings: The visualized sacrum and iliac wings are within normal limits. IMPRESSION: Innumerable paraspinal soft tissue masses are similar to previous and consistent with the patient's known neurofibromatosis, no evidence of progressive disease. Stable degenerative c (more content not included)... Normal [facility] MRI THORACIC SPINE WO/W IVCO Non 10-26-2024 MRI THORACIC SPINE WO/W IVCON * * *Final Report* * * DATE OF EXAM: Oct 26 2024 9:09AM [facility] 0326 - MRI THORACIC SPINE WO/W IVCON / PROCEDURE REASON: multiple diagnoses * * * * Physician Interpretation * * * * EXAMINATION: MRI CERVICAL SPINE WO/W IVCON, MRI LUMBAR SPINE WO/W IVCON, MRI THORACIC SPINE WO/W IVCON CLINICAL HISTORY: Nerve sheath tumor; neurofibromatosis status post selumetinib TECHNIQUE: Routine cervical, thoracic, and lumbosacral spine MR protocol without and with intravenous gadolinium. Contrast: 7 mL Elucirem IV COMPARISON: Complete spine MRI, 10/21/2023 and 10/08/2022 RESULT: Counting reference: Craniocervical and lumbosacral junctions. For the purposes of this report, L4-5 is considered the level of the iliac crest and assume there are 5 lumbar-type vertebrae. Anatomic variant: None. Localizer images: T2 hyperintense renal cysts. Additional well-circumscribed T2 hyperintense soft tissue nodules, for example in the right greater than left chest wall, likely represent additional neurofibromas. CERVICAL: Alignment: Reversal normal cervical lordosis with mild anterolisthesis at C2-3 and C3-4, similar to previous. Craniocervical junction: Craniocervical junction is normal. Cord: The cervical spinal cord is within normal limits of signal intensity and morphology. No abnormal enhancement. Bone marrow signal/fracture: Degenerative endplate changes without associated marrow edema or enhancement. No focal marrow lesion. No evidence of prior fracture. Cervical soft tissues: T2 hyperintense enhancing soft tissue nodules, the largest measuring up to 2.9 x 2.3 x 6.1 cm in the left carotid space, are similar to previous. No extension to the spinal canal. Canal and foramina: C2-3: Disc osteophyte complex without canal or foraminal narrowing. C3-4: Disc osteophyte complex with mild spinal canal narrowing, similar to previous. C4-5: Disc osteophyte complex with mild spinal canal narrowing, similar to previous. C5-6: Disc osteophyte complex, ligamentum flavum thickening, and facet and uncovertebral hypertrophy with moderate spinal canal narrowing as well as mild right and moderate left neural foramen narrowing, similar to previous. C6-7: Disc osteophyte complex, ligamentum flavum thickening, and facet and uncovertebral hypertrophy with mild spinal canal narrowing, similar to previous. C7-T1: No canal or foraminal narrowing. THORACIC: Alignment: Alignment is anatomic. Cord: The thoracic spinal cord is within normal limits of signal intensity and morphology. No abnormal enhancement. Bone marrow signal/fracture: Degenerative endplate changes without associated marrow edema or enhancement. A few small T1 hyperintense nodules may represent focal fatty marrow or benign hemangiomas, no other focal marrow lesion. No evidence of prior fracture. Thoracic soft tissues: T2 hyperintense enhancing soft tissue nodules most pronounced in the upper thoracic spine are similar to previous. For example, a 2.3 x 4 x 1 cm nodule at the level of T2 (series 21, image 7) and a 3.3 x 2.9 cm nodule at the level of T3 (image 21) are unchanged from previous. No enlarging masses identified. No extension to the spinal canal. Canal and foramina: No significant thoracic canal or foraminal stenosis. LUMBAR: Alignment: Alignment is anatomic. Bone marrow signal/fracture: Degenerative endplate changes with associated mild marrow edema at L2-3. No focal marrow lesion. No evidence of prior fracture. Conus: The visualized spinal cord is normal in morphology and signal intensity. Questionable enhancement along the cauda equina nerve roots inferiorly is similar to previous and may be related to small neurofibromas. Paraspinal soft tissues: Innumerable T2 hyperintense enhancing retroperitoneal and paraspinal nodules, including partially visualized nodules extending to the right greater than left sacral foramina, are similar to previous. No new or enlarging nodule is identified. No extension to the spinal canal. Canal and foramina: L1-2: Disc bulge and facet hypertrophy without canal or foraminal narrowing. L2-3: Disc bulge and facet hypertrophy without canal or foraminal narrowing. L3-4: Disc bulge, facet hypertrophy, and ligament flavum thickening with mild narrowing of both subarticular recesses and neural foramina, similar to previous. L4-5: Disc bulge, facet hypertrophy, and ligamentum flavum thickening with diffuse mild spinal canal narrowing and moderate bilateral neural foramen narrowing, similar to previous. L5-S1: Disc bulge and facet hypertrophy with mild bilateral neural foramen narrowing. Sacrum and iliac wings: The visualized sacrum and iliac wings are within normal limits. IMPRESSION: Innumerable paraspinal soft tissue masses are similar to previous and consistent with the patient's known neurofibromatosis, no evidence of progressive disease. Stable degenerative (more content not included)... Normal [facility] No Panel Informationon 10-26 IMPRESSION: Innumerable paraspinal soft tissue masses are similar to previous and consistent with the patient's known neurofibromatosis, no evidence of progressive disease. Stable degenerative changes most pronounced in the cervical spine at C5-6 and the lumbar spine at L4-5. Cervical Anatomic Variant: None. Assume 7 cervical vertebrae with counting from the craniocervical junction. Anatomic Thoracic/Lumbar Variant: None. L4-5 is considered the level of the iliac crest and assume there are 5 lumbar-type vertebrae. Composing Machine Operator/Tender: PSCB Transcribe Date/Time: Oct 26 2024 9:25A Dictated by : JENN SMILEY MD This examination was interpreted and the report reviewed and electronically signed by: JENN SMILEY MD on Oct 26 2024 10:32AM [facility] DIVISION OF RADIOLOGY Radiology Study observation (narrative) [facility] [facility] No Panel InformationOrdered By: Ccf Provider on 10-26-2024 [facility] US GALLBLADDERon 10-22-2024 US GALLBLADDER Interpreted By: Demetrius Britt, STUDY: US GALLBLADDER; 10/22/2024 2:58 pm INDICATION: Signs/Symptoms:ruq abd pressure; known intraabdominal benign plexiform neurofibromas. COMPARISON: None. ACCESSION NUMBER(S): [id number] ORDERING CLINICIAN: MICHELLE MENCHACA TECHNIQUE: Multiple images of the right upper quadrant were obtained. Zuniga scale, color Doppler and spectral Doppler waveform analysis was performed. FINDINGS: LIVER: 13 cm in length. No focal abnormality. Normal hepatic echogenicity. GALLBLADDER: No gallstones. No gallbladder wall thickening. Negative sonographic Funk's sign. BILIARY SYSTEM: Nondilated. PANCREAS: Visualized portion of the body unremarkable. Remainder obscured by overlying bowel gas. RIGHT KIDNEY: 9.8 cm in length. No hydronephrosis. No focal renal abnormality. IMPRESSION: Negative right upper quadrant ultrasound. Signed by: Demetrius Huffman 10/23/2024 8:07 AM Dictation workstation: [id number] [facility] Bacteria identifiedon 2024 Bacteria identified Cx Nom (U) Test: Urine Culture Specimen Source: Clean Catch/Voided Specimen Type: Urine Specimen Date: 10/15/2024 1443 Result Date: 10/17/2024826 Result Status: Final result Abnormal: No Resulting Lab: [facility] [address] [address] CULTURE Clinically insignificant growth based on current clinical standards. [facility] Ambulatory Comment on above: Performed By: #### 6 30-4 #### ESTELLE Remy ([id number]) [facility] ([facility]) [address] [place] [address] POCT UA Automated manually r esultedon 10-15-2024 Appearance (U) Clear Clear [facility] Work Phone: Glucose Test strip (U) [Mass/Vol] Negative NEGATIVE mg/dl [facility] Work Phone: [phone] Hemoglobin Ql (U) Negative NEGATIVE [facility] Work Phone: [phone] Leukocyte esterase Test strip Ql (U) Negative NEGATIVE [facility] Work Phone: [phone] Nitrite Ql (U) Negative NEGATIVE [facility] Work Phone: [phone] pH (U) 6.0 [pH] No Reference Range Established [facility] Work Phone: [phone] POC Bilirubin, Urine Negative NEGATIVE [facility] Phone: [phone] POC Color, Urine Yellow Straw, Yellow, Light-Yellow [facility] Work Phone: [phone] POC Ketones, Urine Negative NEGATIVE mg/dl [facility] Work Phone: POC Protein, Urine Negative NEGATIVE mg/dl [facility] Work Phone: POC Specific [place], Urine >=1.030 1.005 - 1.035 [facility] Work Phone: POC Urobilinogen, Urine 0.2 0.2, 1.0 EU/DL [facility] Work Phone: [facility] Work Phone: PT D/C Summary (1) 025 PT D/C Summary (1) [facility] Physical Therapy [address] [place] [address] / REHABILITATION SERVICES DISCHARGE SUMMARY MR#: [id number] Acct: [id number] Name: SANDRA SANCHEZ Rep #: [id number] : 1970 53 From: Kris Whelan PT, Cert. MD Pat, OCS Referring Dr.: Dr. Ramandeep Lobo DO Status: REG RCR Insurance: MEDICARE PART A B MEDICAID Discharge Summary D/C summary: It has been my pleasure to treat SANDRA SANCHEZ referred by Dr. Ramandeep Lobo DO, with the diagnosis of NECK STIFFNESS ,CERVICOGENIC HEADACHE SYNDROME ,NEUROFIBROMATOSIS for a total of 34 visit(s). Discharge Date: 06/15/24 Please see the following information for a summary of their discharge status. Subjective Subjective: Doing alot better ,need to find new DR Pain Bilateral Neck: Pain Intensity (Out of 10): 0 SORENSEN: Pain Intensity (Out of 10): 0 Overall Improvement % Improvement: 75 Objective Objective/Function: POSTURE: mild forward posture ,slight forward head NEURO: denies paresthesia/tingling ,reflexes C5-6-7 1/2 AROM: BUE WFL PALAPTION: tender occiput /paraspinals /upper traps/ CERVICAL ROM: flexion WFL ,extension min ,rotation WFL s ,lateral flexion min loss ,retraction WFL MMT: BUE grossly 4/5 ,except shoulder 4-/5 Goals Goal 1:: Patient to be I with HEP for cervical Goal Progress: Goal Met Goal 2:: Patient to improve posture for ADL 80% of the time. Goal Progress: Goal Met Goal 3:: Patient to improve cervical ROM for function of recovery for ADLS and driving Goal Progress: Goal Met Goal 4:: Patient to improve neck oswestry score by 5 points to improve QOL Goal Progress: Progressing Goal 5:: Patient to demonstrate 50% improvement with less pain and improved function Goal Progress: Progressing Plan Plan: D/C D/C Information Discharge Comments: hep d/c sentence: If there are questions or concerns regarding this patient's physical therapy, please feel free to call me at [phone]. Thank you for the referral of this patient. Sincerely, Kris Whelan, PT, Cert MDT, OCS Balance/Gait/Functional tests Balance/Special Test Scores Oswestry Neck Score: 6 Improvement % Improvement: 75 06/15/24 1421 CC: Dr. Ramandeep Lobo DO; No Primary Care Physician OBINNA Signed Normal [facility] Re-Evaluation - PT (1)on Re-Evaluation - PT (1) [facility] Physical Therapy [facility] [address] [place] [address] / REEVALUATION / MEDICARE RECERTIFICATION PHYSICAL THERAPY MR#: [id number] Acct: [id number] Name: SANDRA SANCHEZ Rep #: [id number] : 1970 53 From: Kris Whelan PT, Cert. MD Pat, OCS Referring Dr.: Dr. Ramandeep Lobo DO Status:REG R CR Insurance: MEDICARE PART A B MEDICAID Re-Evaluation Intro: Dr. Ramandeep Lobo, , It has been my pleasure to treat SANDRA SANCHEZ over the last 25 visits for NECK STIFFNESS ,CERVICOGENIC HEADACHE SYNDROME ,NEUROFIBROMATOSIS. Please see the progress note below for an update on the physical therapy plan of care! Subjective Subjective: Symptoms help for couple days the return Migraines worse when not in PT Objective Objective/Function: * Patient will continue to benefit from skilled PT with reduction of SORENSEN which improves function to address constant SORENSEN and pain but gradually improving with manual therapy* POSTURE: mild forward posture ,slight forward head NEURO: denies paresthesia/tingling ,reflexes C5-6-7 1/2 AROM: BUE WFL PALAPTION: tender occiput /paraspinals /upper traps/ CERVICAL ROM: flexion WFL ,extension WFL ,rotation WFL s ,lateral flexion min loss ,retraction WFL MMT: BUE grossly 4/5 ,except shoulder 4-/5 Plan Plan Plan: FOCUS ON MANAUL THERAPY STM/TRACTION AND US/HEAT PT INTERVENTIONS MANUAL THERAPY STM/CERVICAL TRACTION , US ,CERVICAL /POSTURAL EX'S AND STRENGTHENING Balance/Gait/Functional tests Balance/Special Test Scores Oswestry Neck Score: 24 Goals Goals Goal 1:: Patient to be I with HEP for cervical Goal Time Frame: 4-6 Weeks Goal Progress: Progressing Goal 2:: Patient to improve posture for ADL 80% of the time. Goal Time Frame: 4-6 Weeks Goal Progress: Progressing Goal 3:: Patient to improve cervical ROM for function of recovery for ADLS and driving Goal Time Frame: 4-6 Weeks Goal Progress: Progressing Goal 4:: Patient to improve neck oswestry score by 5 points to improve QOL Goal Time Frame: 4-6 Weeks Goal Progress: Progressing Goal 5:: Patient to demonstrate 50% improvement with less pain and improved function Goal Time Frame: 4-6 Weeks Goal Progress: Progressing Anticipated Interventions Anticipated Interventions Patient/Client Instruction: Educate patient on: Condition and Plan of Care For the Purpose of:: To decrease pain, To increase ROM, To improve muscle performance and motor function, To improve ability to perform ADL's, To increase tolerance to activity/condition/positi on, To improve ability of physical actions for home/community/work/leisu re, To improve health of tissue, To decrease soft tissue restriction, To increase flexibility/ROM and To reduce risk of recurrence Therapeutic Exercise to Include: Strength training, Postural training, Flexibilty training, Active ROM and Scapular Strength/Stabilization For the Purpose of:: To decrease pain, To increase ROM, To improve muscle performance and motor function, To improve ability to perform ADL's, To increase tolerance to activity/condition/positi on, To improve ability of physical actions for home/community/work/leisu re, To improve health of tissue, To decrease soft tissue restriction, To increase flexibility/ROM, To reduce risk of recurrence and To improve tolerance to ADL's Manual Therapy Techniques to Include: Mobilization and Soft tissue mobilization Comment: STM ,CERVICAL TARCTION For the Purpose of:: To decrease pain, To increase ROM, To improve nutrient delivery to tissue, To increase oxygenation perfusion, To improve health of tissue and To decrease soft tissue restriction TENS: Yes IF ES: Yes Cryotherapy (ice pack, ice massage): Yes Thermo therapy (hot pack): Yes Ultrasound (thermal/non thermal): Yes Intermittent cervical traction: Yes For the Purpose of:: To decrease pain, To increase ROM, To improve nutrient delivery to tissue, To increase oxygenation perfusion, To improve health of tissue, To decrease soft tissue restriction and To increase flexibility/ROM Re-Evaluation Ending Re-evaluation ending: Please do not hesitate to contact me at [phone] by phone or if you have questions or concerns regarding this new plan of care! Sincerely, Kris Whelan, PT, Cert MDT, [facility] 05/13/24 4551 CC: Dr. Ramandeep Lobo DO; No Primary Care Physician OBINNA Signed For Medicare only, by signing this I certify the plan of care. ___ Physicians Signature Date Normal [facility] Re-Evaluation - PT (1)on Re-Evaluation - PT (1) [facility] Physical Therapy [facility] [address] [place] [address] / REEVALUATION / MEDICARE RECERTIFICATION PHYSICAL THERAPY MR#: [id number] Acct: [id number] Name: SANDRA SANCHEZ Rep #: [id number] : 1970 53 From: Kris Whelan PT, Cert. T, OCS Referring Dr.: Dr. Ramandeep Lobo DO Status:REG R CR Insurance: MEDICARE PART A B MEDICAID Re-Evaluation Intro: Dr. Ramandeep Lobo DO, It has been my pleasure to treat SANDRA SANCHEZ over the last 17 visits for NECK STIFFNESS ,CERVICOGENIC HEADACHE SYNDROME ,NEUROFIBROMATOSIS. Please see the progress note below for an update on the physical therapy plan of care! Subjective Subjective: When your done with PT Im able to do more with ADLS and housework task and no burning Objective Objective/Function: * Patient will continue to benefit from skilled PT with reduction of SORENSEN which improves function to address constant SORENSEN and pain but gradually improving with manual therapy* POSTURE: mild forward posture ,slight forward head NEURO: denies paresthesia/tingling ,reflexes C5-6-7 1/2 AROM: BUE WFL PALAPTION: tender occiput /paraspinals /upper traps/ CERVICAL ROM: flexion WFL ,extension WFL ,rotation WFL s ,lateral flexion min loss ,retraction WFL MMT: BUE grossly 4/5 ,except shoulder 4-/5 Plan Plan Plan: FOCUS ON MANAUL THERAPY STM/TRACTION AND US/HEAT PT INTERVENTIONS MANUAL THERAPY STM/CERVICAL TRACTION , US ,CERVICAL /POSTURAL EX'S AND STRENGTHENING Balance/Gait/Functional tests Balance/Special Test Scores Oswestry Neck Score: 27 Goals Goals Goal 1:: Patient to be I with HEP for cervical Goal Time Frame: 4-6 Weeks Goal Progress: Progressing Goal 2:: Patient to improve posture for ADL 80% of the time. Goal Time Frame: 4-6 Weeks Goal Progress: Progressing Goal 3:: Patient to improve cervical ROM for function of recovery for ADLS and driving Goal Time Frame: 4-6 Weeks Goal Progress: Progressing Goal 4:: Patient to improve neck oswestry score by 5 points to improve QOL Goal Time Frame: 4-6 Weeks Goal Progress: Progressing Goal 5:: Patient to demonstrate 50% improvement with less pain and improved function Goal Time Frame: 4-6 Weeks Goal Progress: Progressing Anticipated Interventions Anticipated Interventions Patient/Client Instruction: Educate patient on: Condition and Plan of Care For the Purpose of:: To decrease pain, To increase ROM, To improve muscle performance and motor function, To improve ability to perform ADL's, To increase tolerance to activity/condition/positi on, To improve ability of physical actions for home/community/work/leisu re, To improve health of tissue, To decrease soft tissue restriction, To increase flexibility/ROM and To reduce risk of recurrence Therapeutic Exercise to Include: Strength training, Postural training, Flexibilty training, Active ROM and Scapular Strength/Stabilization For the Purpose of:: To decrease pain, To increase ROM, To improve muscle performance and motor function, To improve ability to perform ADL's, To increase tolerance to activity/condition/positi on, To improve ability of physical actions for home/community/work/leisu re, To improve health of tissue, To decrease soft tissue restriction, To increase flexibility/ROM, To reduce risk of recurrence and To improve tolerance to ADL's Manual Therapy Techniques to Include: Mobilization and Soft tissue mobilization Comment: STM ,CERVICAL TARCTION For the Purpose of:: To decrease pain, To increase ROM, To improve nutrient delivery to tissue, To increase oxygenation perfusion, To improve health of tissue and To decrease soft tissue restriction TENS: Yes IF ES: Yes Cryotherapy (ice pack, ice massage): Yes Thermo therapy (hot pack): Yes Ultrasound (thermal/non thermal): Yes Intermittent cervical traction: Yes For the Purpose of:: To decrease pain, To increase ROM, To improve nutrient delivery to tissue, To increase oxygenation perfusion, To improve health of tissue, To decrease soft tissue restriction and To increase flexibility/ROM Re-Evaluation Ending Re-evaluation ending: Please do not hesitate to contact me at [phone] by phone or if you have questions or concerns regarding this new plan of care! Sincerely, Kris Whelan PT, Cert T, OCS 04/14/24 1352 CC: Dr. Ramandeep Lobo DO; No Primary Care Physician OBINNA Signed For Medicare only, by signing this I certify the plan of care. ___ Physicians Signature Date Normal [facility] Re-Evaluation - PT (1)on Re-Evaluation - PT (1) [facility] Physical Therapy [facility] [address] [place] [address] / REEVALUATION / MEDICARE RECERTIFICATION PHYSICAL THERAPY MR#: [id number] Acct: [id number] Name: SANDRA SANCHEZ Rep #: [id number] : 1970 53 From: Kris Whelan PT, Cert. T, OCS Referring Dr.: Dr. Ramandeep Lobo DO Status:REG R CR Insurance: MEDICARE PART A B MEDICAID Re-Evaluation Intro: Dr. Ramandeep Lobo DO, It has been my pleasure to treat SANDRA SANCHEZ over the last 8 visits for NECK STIFFNESS ,CERVICOGENIC HEADACHE SYNDROME ,NEUROFIBROMATOSIS. Please see the progress note below for an update on the physical therapy plan of care! Subjective Subjective: Helped with massage and US with pain and massage After tx feels great. Objective Objective/Function: * Patient will continue to benefit from skilled PT to address constant SORENSEN and pain but gradually improving with manual therapy* POSTURE: mild forward posture ,slight forward head NEURO: denies paresthesia/tingling ,reflexes C5-6-7 1/2 AROM: BUE WFL PALAPTION: tender occiput /paraspinals /upper traps/ CERVICAL ROM: flexion min loss ,extension min loss ,rotation min loss ,lateral flexion min loss ,retraction min loss MMT: BUE grossly 4/5 ,except shoulder 4-/5 Plan Plan Plan: FOCUS ON MANAUL THERAPY STM/TRACTION AND US/HEAT PT INTERVENTIONS MANUAL THERAPY STM/CERVICAL TRACTION , US ,CERVICAL /POSTURAL EX'S AND STRENGTHENING Balance/Gait/Functional tests Balance/Special Test Scores Oswestry Neck Score: 27 Goals Goals Goal 1:: Patient to be I with HEP for cervical Goal Time Frame: 4-6 Weeks Goal Progress: Progressing Goal 2:: Patient to improve posture for ADL 80% of the time. Goal Time Frame: 4-6 Weeks Goal Progress: Progressing Goal 3:: Patient to improve cervical ROM for function of recovery for ADLS and driving Goal Time Frame: 4-6 Weeks Goal Progress: Progressing Goal 4:: Patient to improve neck oswestry score by 5 points to improve QOL Goal Time Frame: 4-6 Weeks Goal Progress: Progressing Goal 5:: Patient to demonstrate 50% improvement with less pain and improved function Goal Time Frame: 4-6 Weeks Goal Progress: Progressing Anticipated Interventions Anticipated Interventions Patient/Client Instruction: Educate patient on: Condition and Plan of Care For the Purpose of:: To decrease pain, To increase ROM, To improve muscle performance and motor function, To improve ability to perform ADL's, To increase tolerance to activity/condition/positi on, To improve ability of physical actions for home/community/work/leisu re, To improve health of tissue, To decrease soft tissue restriction, To increase flexibility/ROM and To reduce risk of recurrence Therapeutic Exercise to Include: Strength training, Postural training, Flexibilty training, Active ROM and Scapular Strength/Stabilization For the Purpose of:: To decrease pain, To increase ROM, To improve muscle performance and motor function, To improve ability to perform ADL's, To increase tolerance to activity/condition/positi on, To improve ability of physical actions for home/community/work/leisu re, To improve health of tissue, To decrease soft tissue restriction, To increase flexibility/ROM, To reduce risk of recurrence and To improve tolerance to ADL's Manual Therapy Techniques to Include: Mobilization and Soft tissue mobilization Comment: STM ,CERVICAL TARCTION For the Purpose of:: To decrease pain, To increase ROM, To improve nutrient delivery to tissue, To increase oxygenation perfusion, To improve health of tissue and To decrease soft tissue restriction TENS: Yes IF ES: Yes Cryotherapy (ice pack, ice massage): Yes Thermo therapy (hot pack): Yes Ultrasound (thermal/non thermal): Yes Intermittent cervical traction: Yes For the Purpose of:: To decrease pain, To increase ROM, To improve nutrient delivery to tissue, To increase oxygenation perfusion, To improve health of tissue, To decrease soft tissue restriction and To increase flexibility/ROM Re-Evaluation Ending Re-evaluation ending: Please do not hesitate to contact me at [phone] by phone or if you have questions or concerns regarding this new plan of care! Sincerely, Kris Whelan PT, Cert MDT, OCS 03/18/24 1350 CC: Dr. Ramandeep Lobo, DO; No Primary Care Physician JLA Signed For Medicare only, by signing this I certify the plan of care. ___ Physicians Signature Date Normal [facility] CT CARDIAC SCORING WO IV CON TRASTon 03-16-2024 CT CARDIAC SCORING WO IV CONTRAST Interpreted By: Andriy Hoffmann, STUDY: CT CARDIAC SCORING WO IV CONTRAST; 03/16/2024 11:13 am INDICATION: Signs/Symptoms:screening; FMHx of AAA in father who was a smoker. ,Z13.6 Encounter for screening for cardiovascular disorders COMPARISON: None. ACCESSION NUMBER(S): [id number] ORDERING CLINICIAN: RAMANDEEP TOM TECHNIQUE: Using prospective ECG gating, CT scan of the coronary arteries was performed without intravenous contrast. Coronary calcium scoring was performed according to the method of Agatston. FINDINGS: The score and distribution of calcium in the coronary arteries is as follows: LM 0 LAD 9.36 LCx 0 RCA 0 Total 9.36 The visualized mid/lower ascending thoracic aorta measures 3.2 cm in diameter. The heart is normal in size. Mild pericardial thickening anterior to the right ventricle measuring 5 mm. No gross evidence of mediastinal or hilar lymphadenopathy or masses is identified. The visualized segments of the lungs are normally expanded. Multiple nodular densities lateral to the lower thoracic spine in the retroaortic area. IMPRESSION: 1. Coronary artery calcium score of 9.36*. *Coronary artery calcium scoring may be helpful in predicting the risk for future coronary heart disease events. According to the [place] [employer] Clinical Expert Consensus Task Force, such testing provides important prognostic information in patients with more than one coronary heart disease risk factor. The coronary artery calcium score correlates with the annual risk of a non-fatal myocardial infarction or coronary heart disease . Coronary artery score Annual Risk 0-99 0.4% 100-399 1.3% >400 2.4% These three breakpoints correspond to lower, intermediate and high risk states for future coronary events. Such information should be used, along with appropriate clinical judgment, to make decisions regarding the intensity of risk factor management strategies to treat blood lipids and to modify other non-lipid coronary risk factors. Reference: Chula P et al. Circulation. 2007; 115:402-426 2. Left paraspinal nodularities are present. Past medical history of neurofibromatosis. MACRO: None Signed by: Andriy Hoffmann 03/22/2024 10:45 AM Dictation workstation: [id number] [facility] BI MAMMO BILATERAL SCREENING TOMOSYNTHESISon 03-01-2024 BI MAMMO BILATERAL SCREENING TOMOSYNTHESIS Interpreted By: Magdiel Ann, STUDY: BI MAMMO BILATERAL SCREENING TOMOSYNTHESIS; 03/01/2024 1:17 pm ACCESSION NUMBER(S): [id number] ORDERING CLINICIAN: RAMANDEEP TOM INDICATION: Screening. Benign right excisional biopsy. ,Z12.31 Encounter for screening mammogram for malignant neoplasm of breast COMPARISON: 09/02/2022 and 11/18/2019 FINDINGS: 2D and tomosynthesis images were reviewed at 1 mm slice thickness. Density: The breasts are extremely dense, which lowers the sensitivity of mammography. No suspicious masses or calcifications are identified. IMPRESSION: No mammographic evidence of malignancy. BI-RADS CATEGORY: BI-RADS Category: 1 Negative. Recommendation: Annual Screening. Recommended Date: 1 Year. Laterality: Bilateral. For any future breast imaging appointments, please call [phone] ([phone] MACRO: None Signed by: Magdiel Ann 03/06/2024 9:47 PM Dictation workstation: [id number] [facility] DEXA BONE DENSITYon 03-01-20 DEXA BONE DENSITY Interpreted By: Iraj Lambert, STUDY: DEXA BONE [id number]/01/2024 1:37 pm INDICATION: Follow-up. COMPARISON: DEXA scan 02/25/2022. ACCESSION NUMBER(S): [id number] ORDERING CLINICIAN: RAMANDEEP TOM TECHNIQUE: DEXA BONE DENSITY FINDINGS: SPINE L1-L4 Bone Mineral Density: 1.133 T-Score -0.5 Z-Score 0.2 Classification: Normal Bone Mineral Density change vs previous: -3% LEFT FEMUR -TOTAL Bone Mineral Density: 0.758 T-Score -2.0 Z-Score -1.4 Classification: Osteopenia Bone Mineral Density change vs previous: +0.8% LEFT FEMUR -NECK Bone Mineral Density: 0.760 T-Score -2.0 Z-Score -1.1 Classification: Osteopenia World Health Organization (WHO) criteria for post-menopausal, Women: Normal: T-score at or above -1 SD Osteopenia: T-score between -1 and -2.5 SD Osteoporosis: T-score at or below -2.5 SD 10-year Fracture Risk: Major Osteoporotic Fracture 12.8% Hip Fracture 1.8% This exam was performed at [facility] on a [facility] Dexa Unit. IMPRESSION: DEXA: According to World Health Organization criteria, classification is low bone mass (osteopenia) Followup recommended in two years or sooner as clinically warranted. All images and detailed analysis are available on the Radiology PACS. Signed by: Iraj Lambert 03/01/2024 1:54 PM Dictation workstation: [id number] [facility] DXA Skeletal system Views fo r bone densityon 03-01-2024 DEXA: According to W orld Health Organization criteria, classification is low bone mass (osteopenia) Followup recommended in two years or sooner as clinically warranted. All images and detailed analysis are available on the Radiology PACS. Signed by: Iraj Lambert 03/01/2024 1:54 PM Dictation workstation: [id number] Interpreted By: Iraj Lambert, STUDY: DEXA BONE [id number]/01/2024 1:37 pm INDICATION: Follow-up. COMPARISON: DEXA scan 02/25/2022. ACCESSION NUMBER(S): [id number] ORDERING CLINICIAN: RAMANDEEP TOM TECHNIQUE: DEXA BONE DENSITY FINDINGS: SPINE L1-L4 Bone Mineral Density: 1.133 T-Score -0.5 Z-Score 0.2 Classification: Normal Bone Mineral Density change vs previous: -3% LEFT FEMUR -TOTAL Bone Mineral Density: 0.758 T-Score -2.0 Z-Score -1.4 Classification: Osteopenia Bone Mineral Density change vs previous: +0.8% LEFT FEMUR -NECK Bone Mineral Density: 0.760 T-Score -2.0 Z-Score -1.1 Classification: Osteopenia World Health Organization (WHO) criteria for post-menopausal, Women: Normal: T-score at or above -1 SD Osteopenia: T-score between -1 and -2.5 SD Osteoporosis: T-score at or below -2.5 SD 10-year Fracture Risk: Major Osteoporotic Fracture 12.8% Hip Fracture 1.8% This exam was performed at [facility] on a Evolva Dexa Unit. [facility] Iraj Lambert, DO - 03/01/2024 Interpreted By: Iraj Lambert, STUDY: DEXA BONE [id number]/01/2024 1:37 pm INDICATION: Follow-up. COMPARISON: DEXA scan 02/25/2022. ACCESSION NUMBER(S): [id number] ORDERING CLINICIAN: RAMANDEEP TOM TECHNIQUE: DEXA BONE DENSITY FINDINGS: SPINE L1-L4 Bone Mineral Density: 1.133 T-Score -0.5 Z-Score 0.2 Classification: Normal Bone Mineral Density change vs previous: -3% LEFT FEMUR -TOTAL Bone Mineral Density: 0.758 T-Score -2.0 Z-Score -1.4 Classification: Osteopenia Bone Mineral Density change vs previous: +0.8% LEFT FEMUR -NECK Bone Mineral Density: 0.760 T-Score -2.0 Z-Score -1.1 Classification: Osteopenia World Health Organization (WHO) criteria for post-menopausal, Women: Normal: T-score at or above -1 SD Osteopenia: T-score between -1 and -2.5 SD Osteoporosis: T-score at or below -2.5 SD 10-year Fracture Risk: Major Osteoporotic Fracture 12.8% Hip Fracture 1.8% This exam was performed at [facility] on a Evolva Dexa Unit. IMPRESSION: DEXA: According to World Health Organization criteria, classification is low bone mass (osteopenia) Followup recommended in two years or sooner as clinically warranted. All images and detailed analysis are available on the Radiology PACS. Signed by: Iraj Lambert 03/01/2024 1:54 PM Dictation workstation: [id number] [facility] Work Phone: Radiology Study observation (narrative) [facility] Work Phone: DXA Skeletal system Views fo r bone densityOrdered By: Iraj Lambert on 03-01-2024 [facility] Work Phone: Inital Evaluation (1) - PTon 02-19-2024 Inital Evaluation (1) - PT [facility] Physical Therapy [facility] [address] [place] [address] [address] [place] [address] / REHABILITATION SERVICES INITIAL EVALUATION MR#: [id number] Acct: [id number] Name: SANDRA SANCHEZ Rep #: [id number] : 1970 53 From: Yamilka Elam PT. MD Pat, OCS Referring DrRegina: Dr. Ramandeep Lobo DO Status: REG RCR Insurance: MEDICARE PART A B MEDICAID Patient's Visit Information Visit Information Visit Information: SANDRA SANCHEZ is a 53 year old F referred to Physical Therapy by Dr. Ramandeep Lobo DO with a diagnosis of NECK STIFFNESS ,CERVICOGENIC HEADACHE SYNDROME ,NEUROFIBROMATOSIS. Date of Evaluation: 02/19/24 Physical Therapist: Kris Whelan PT, Cert T, OCS Visit Plan Frequency: 2x /Week Duration: 4 Weeks Plan: PT INTERVENTIONS MANUAL THERAPY STM/CERVICAL TRACTION , US ,CERVICAL /POSTURAL EX'S AND STRENGTHENING Subjective Subjective: This 53 female presents to physical therapy with cervical pain. Patient has had neck pain many years along with SORENSEN. Seen recommended PT ,tried baclofen and imaging MRI due to neurofibromatosis. Pain located in cervical occiput to to lower spine . Patient has migraines . Aggravating lifting with BUE ,turning ,sitting. Alleviating factors rest. C/O occasional paresthesia/tingling in hands. Symptoms affects sleeping. Patient denies dizziness/nausea/tinnitus maybe occasional. Patient has had prior tx . Patient condition QOL and function. Patient goals to decrease pain. SOCIAL: single VOCATION: disablity Pain Bilateral Neck: Pain Intensity (Out of 10): 6 Pain Intensity Range: 10 Objective Objective: POSTURE: mild forward posture ,slight forward head NEURO: denies paresthesia/tingling ,reflexes C5-6-7 1/2 AROM: BUE WFL PALAPTION: tender occiput /paraspinals CERVICAL ROM: flexion min loss ,extension min loss ,rotation min loss ,lateral flexion min loss ,retraction min loss MMT: BUE grossly 4/5 ,except shoulder 4-/5 Special Tests C/S Radiculapathy - Left Upper limb tension test: Negative C/S Radiculapathy - Right Upper limb tension test: Negative C/S Radiculapathy - Left Spurlings: Negative C/S Radiculapathy - Right Spurlings: Negative C/S Radiculapathy - Left Cervical distraction: Negative C/S Radiculapathy - Right Cervical distraction: Negative C/S Radiculapathy - Left Relief test: Negative C/S Radiculapathy - Right Relief test: Negative C/S Radiculapathy - Valsalva: Negative Sharp Sadia: Negative Vertebral Artery Test: Negative Alar Ligament Test: Negative Cervical Sitting: Protrusion - Mechanical Response: No effect Cervical Sitting: Protrusion - Symptoms During Testing: Increases Cervical Sitting: Protrusion - Symptoms After Testing: No worse Cervical Sitting: Retraction - Mechanical Response: No effect Cervical Sitting: Retraction - Symptoms During Testing: Increases Cervical Sitting: Retraction - Symptoms After Testing: No worse Cervical Sitting: Retraction-Extension - Mechanical Response: No effect Cerv Sitting: Retraction-Extension - Symptoms During Testing: Increases Cerv Sitting: Retraction-Extension - Symptoms After Testing: No worse Cervical Sitting: Sidebend Right - Mechanical Response: No effect Cervical Sitting: Sidebend Right - Symptoms During Testing: No effect Cervical Sitting: Sidebend Right - Symptoms After Testing: No effect Cervical Sitting: Sidebend Left - Mechanical Response: No effect Cervical Sitting: Sidebend Left - Symptoms During Testing: No effect Cervical Sitting: Sidebend Left - Symptoms After Testing: No effect Cervical Sitting: Rotation Right - Mechanical Response: No effect Cervical Sitting: Rotation Right - Symptoms During Testing: No effect Cervical Sitting: Rotation Right - Symptoms After Testing: No effect Cervical Sitting: Rotation Left - Mechanical Response: No effect Cervical Sitting: Rotation Left - Symptoms During Testing: No effect Cervical Sitting: Rotation Left - Symptoms After Testing: No effect Cervical Sitting: Flexion - Mechanical Response: No effect Cervical Sitting: Flexion - Symptoms During Testing: Increases Cervical Sitting: Flexion - Symptoms After Testing: No worse Balance/Special Test Scores Oswestry Neck Score: 25 Goals Goal 1:: Patient to be I with HEP for cervical Goal Time Frame: 4-6 Weeks Goal 2:: Patient to improve posture for ADL 80% of the time. Goal Time Frame: 4-6 Weeks Goal 3:: Patient to improve cervical ROM for function of recovery for ADLS and driving Goal Time Frame: 4-6 Weeks Goal 4:: Patient to improve neck oswestry score by 5 points to improve QOL Goal Time Frame: 4-6 Weeks Goal 5:: Patient to demonstrate 50% improvement with less pain and improved function Goal Time Frame: 4-6 Weeks Rehabilitation Potential Physical Therapy Diagnosis: This patient has cervical pain with chronic SORENSEN with pain with motion test (more content not included)... Normal [facility] CBC W Auto Differential pane l (Bld)on 02-03-2024 Basophils (Bld) [#/Vol] 0.05 x10*3/uL Normal 0.00-0.10 [facility] Comment on above: Performed By: #### 5 7021-8 #### ESTELLE Remy ([id number]) [facility] ([facility]) [address] [place] [address] 42911 Basophils/100 WBC (Bld) 0.7 % Normal 0.0-2.0 [facility] Comment on above: Performed By: #### 5 7021-8 #### ESTELLE Remy ([id number]) [facility] ([facility]) [address] [place] [address] Eosinophils (Bld) [#/Vol] 0.09 x10*3/uL Normal 0.00-0.70 [facility] Comment on above: Performed By: #### 5 7021-8 #### ESTELLE Remy ([id number]) [facility] ([facility]) [address] [place] [address] 90778 Eosinophils/100 WBC (Bld) 1.3 % Normal 0.0-6.0 [facility] Comment on above: Performed By: #### 5 7021-8 #### ESTELLE Remy ([id number]) [facility] ([facility]) [address] [place] [address] 31232 Erythrocyte distribution width (RBC) [Ratio] 11.8 % Normal 11.5-14.5 [facility] Comment on above: Performed By: #### 5 7021-8 #### ESTELLE Remy ([id number]) [facility] ([facility]) [address] [place] [address] 57618 Hematocrit (Bld) [Volume fraction] 42.8 % Normal 36.0-46.0 [facility] Comment on above: Performed By: #### 5 7021-8 #### ESTELLE Remy ([id number]) [facility] ([facility]) [address] [place] [address] 41707 Hemoglobin (Bld) [Mass/Vol] 14.6 g/dL Normal 12.0-16.0 [facility] Comment on above: Performed By: #### 5 7021-8 #### ESTELLE Remy ([id number]) [facility] ([facility]) [address] [place] [address] 08771 Immature granulocytes (Bld) [#/Vol] 0.02 x10*3/uL Normal 0.00-0.70 [facility] Comment on above: Performed By: #### 5 7021-8 #### ESTELLE Remy ([id number]) [facility] ([facility]) [address] [place] [address] 34572 Immature granulocytes/100 WBC (Bld) 0.3 % Normal 0.0-0.9 [facility] Comment on above: Result Comment: Joan ture Granulocyte Count (IG) includes promyelocytes, myelocytes and metamyelocytes but does not include bands. Percent differential counts (%) should be interpreted in the context of the absolute cell counts (cells/UL). Performed By: #### 5 7021-8 #### ESTELLE Remy ([id number]) [facility] ([facility]) [address] [place] [address] 76612 Lymphocytes (Bld) [#/Vol] 3.07 x10*3/uL Normal 1.20-4.80 [facility] Comment on above: Performed By: #### 5 7021-8 #### ESTELLE Remy ([id number]) [facility] ([facility]) [address] [place] [address] 18148 Lymphocytes/100 WBC (Bld) 44.8 % Normal 13.0-44.0 [facility] Comment on above: Performed By: #### 5 7021-8 #### ESTELLE LARAMOYOUSIF L ([id number]) [facility] ([facility]) [address] [place] [address] 25903 MCH (RBC) [Entitic mass] 32.1 pg Normal 26.0-34.0 [facility] Comment on above: Performed By: #### 5 7021-8 #### ESTELLE LARAMOYOUSIF Remy ([id number]) [facility] ([facility]) [address] [place] [address] MCHC (RBC) [Mass/Vol] 34.1 g/dL Normal 32.0-36.0 [facility] Comment on above: Performed By: #### 5 7021-8 #### ESTELLE LARAMOAMYER L ([id number]) [facility] ([facility]) [address] [place] [address] 49956 MCV (RBC) [Entitic vol] 94 fL Normal 80-100 [facility] Comment on above: Performed By: #### 5 7021-8 #### ESTELLE ANGEL L ([id number]) [facility] ([facility]) [address] [place] [address] 77237 Monocytes (Bld) [#/Vol] 0.49 x10*3/uL Normal 0.10-1.00 [facility] Comment on above: Performed By: #### 5 7021-8 #### ESTELLE ANGEL L ([id number]) [facility] ([facility]) [address] [place] [address] Monocytes/100 WBC (Bld) 7.1 % Normal 2.0-10.0 [facility] Comment on above: Performed By: #### 5 7021-8 #### ESTELLE KENNEDYER L ([id number]) [facility] ([facility]) [address] [place] [address] Neutrophils (Bld) [#/Vol] 3.14 x10*3/uL Normal 1.20-7.70 [facility] Comment on above: Result Comment: Perc ent differential counts (%) should be interpreted in the context of the absolute cell counts (cells/uL). Performed By: #### 5 7021-8 #### ESTELLE LARAMOTZER L ([id number]) [facility] ([facility]) [address] [place] [address] Neutrophils/100 WBC (Bld) 45.8 % Normal 40.0-80.0 [facility] Comment on above: Performed By: #### 5 7021-8 #### ESTELLE ANGEL L ([id number]) [facility] ([facility]) [address] [place] [address] Nucleated RBC/100 WBC (Bld) [Ratio] 0.0 /100 WBCs Normal 0.0-0.0 [facility] Comment on above: Performed By: #### 5 7021-8 #### ESTELLE LARAMOTZER L ([id number]) [facility] ([facility]) [address] [place] [address] Platelets (Bld) [#/Vol] 238 x10*3/uL Normal 150-450 [facility] Comment on above: Performed By: #### 5 7021-8 #### ESTELLE LARAMOTZER L ([id number]) [facility] ([facility]) [address] [place] [address] 74877 RBC (Bld) [#/Vol] 4.55 x10*6/uL Normal 4.00-5.20 [facility] Comment on above: Performed By: #### 5 7021-8 #### ESTELLE Remy ([id number]) [facility] ([facility]) [address] [place] [address] 04826 WBC (Bld) [#/Vol] 6.9 x10*3/uL Normal 4.4-11.3 [facility] Comment on above: Performed By: #### 5 7021-8 #### ESTELLE Remy ([id number]) [facility] ([facility]) [address] [place] [address] 82003 Comprehensive metabolic 2000 panelon 02-03-2024 Albumin BCP dye [Mass/Vol] 4.2 g/dL Normal 3.4-5.0 [facility] Comment on above: Performed By: #### 2 4323-8 #### ESTELLE Remy ([id number]) [facility] ([facility]) [address] [place] [address] 39572 ALP [Catalytic activity/Vol] 126 U/L High 33-110 [facility] Comment on above: Performed By: #### 2 4323-8 #### ESTELLE Remy ([id number]) [facility] ([facility]) [address] [place] [address] 54001 ALT With P-5'-P [Catalytic activity/Vol] 12 U/L Normal 7-45 [facility] Comment on above: Result Comment: Arpita ents treated with Sulfasalazine may generate falsely decreased results for ALT. Performed By: #### 2 4323-8 #### ESTELLE Remy ([id number]) [facility] ([facility]) [address] [place] [address] 93297 Anion gap [Moles/Vol] 13 mmol/L Normal 10-20 [facility] Comment on above: Performed By: #### 2 4323-8 #### ESTELLE Remy ([id number]) [facility] ([facility]) [address] [place] [address] AST With P-5'-P [Catalytic activity/Vol] 15 U/L Normal 9-39 [facility] Comment on above: Performed By: #### 2 4323-8 #### ESTELLE Remy ([id number]) [facility] ([facility]) [address] [place] [address] Bilirubin [Mass/Vol] 0.5 mg/dL Normal 0.0-1.2 [facility] Comment on above: Performed By: #### 2 4323-8 #### ESTELLE Remy ([id number]) [facility] ([facility]) [address] [place] [address] Calcium [Mass/Vol] 10.2 mg/dL Normal 8.6-10.6 [facility] Comment on above: Performed By: #### 2 4323-8 #### ESTELLE Remy ([id number]) [facility] ([facility]) [address] [place] [address] Chloride [Moles/Vol] 99 mmol/L Normal 98-107 [facility] Comment on above: Performed By: #### 2 4323-8 #### ESTELLE Remy ([id number]) [facility] ([facility]) [address] [place] [address] CO2 [Moles/Vol] 29 mmol/L Normal 21-[address] [facility] Comment on above: Performed By: #### 2 4323-8 #### ESTELLE Remy ([id number]) [facility] ([facility]) [address] [place] [address] Creatinine [Mass/Vol] 0.75 mg/dL Normal 0.50-1.05 [facility] Comment on above: Performed By: #### 2 4323-8 #### ESTELLE Remy ([id number]) [facility] ([facility]) [address] [place] [address] GFR/1.73 sq M.predicted MDRD (S/P/Bld) [Vol rate/Area] mL/min/{1.73_m2} Normal >60 [facility] Comment on above: Result Comment: Calc ulations of estimated GFR are performed using the 2020 CKD-EPI Study Refit equation without the race variable for the IDMS-Traceable creatinine methods. https://jasn.asnjournals.org/content//ASN.1837911 988 Performed By: #### 2 4323-8 #### ESTELLE Remy ([id number]) [facility] ([facility]) [address] [place] [address] 87189 Glucose [Mass/Vol] 100 mg/dL High 74-99 [facility] Comment on above: Performed By: #### 2 4323-8 #### ESTELLE Remy ([id number]) [facility] ([facility]) [address] [place] [address] 98983 Potassium [Moles/Vol] 4.6 mmol/L Normal 3.5-5.3 [facility] Comment on above: Performed By: #### 2 4323-8 #### ESTELLE ANGEL L ([id number]) [facility] ([facility]) [address] [place] [address] 78139 Protein [Mass/Vol] 6.7 g/dL Normal 6.4-8.2 [facility] Comment on above: Performed By: #### 2 4323-8 #### ESTELLE LARAMOYOUSIF L ([id number]) [facility] ([facility]) [address] [place] [address] 55206 Sodium [Moles/Vol] 136 mmol/L Normal 136-145 [facility] Comment on above: Performed By: #### 2 4323-8 #### ESTELLE ANGEL L ([id number]) [facility] ([facility]) [address] [place] [address] 68452 Urea nitrogen [Mass/Vol] 13 mg/dL Normal 6-23 [facility] Comment on above: Performed By: #### 2 4323-8 #### ESTELLE Remy ([id number]) [facility] ([facility]) [address] [place] [address] Lipid 1996 panelon 4 Cholesterol [Mass/Vol] 214 mg/dL High 0-199 [facility] Comment on above: Result Comment: Age Desirable Borderline High High 0-19 Y 0 - 169 170 - 199 >/= 200 20-24 Y 0 - 189 190 - 224 >/= 225 >24 Y 0 - 199 200 - 239 >/= 240 All ranges are based on fasting samples. Specific therapeutic targets will vary based on patient-specific cardiac risk. Pediatric guidelines reference:Pediatrics 2011, 128(S5).Adult guidelines reference: NCEP ATPIII Guidelines,PASQUALE 2001, 258:2486-97 Venipuncture immediately after or during the administration of Metamizole may lead to falsely low results. Testing should be performed immediately prior to Metamizole dosing. Performed By: #### 2 4331-1 #### ESTELLE Remy ([id number]) [facility] ([facility]) [address] [place] [address] 43807 Cholesterol in HDL [Mass/Vol] 55.2 mg/dL Normal [facility] Comment on above: Result Comment: Age Very Low Low Normal High 0-19 Y < 35 < 40 40-45 ---- 20-24 Y ---- < 40 >45 ---- >24 Y ---- < 40 40-60 >60 Performed By: #### 2 4331-1 #### ESTELLE Remy ([id number]) [facility] ([facility]) [address] [place] [address] 38222 Cholesterol in LDL [Mass/Vol] 129 mg/dL High <=99 [facility] Comment on above: Result Comment: Near Borderline AGE Desirable Optimal High High Very High 0-19 Y 0 - 109 --- 110-129 >/= 130 ---- 20-24 Y 0 - 119 --- 120-159 >/= 160 ---- >24 Y 0 - 99 100-129 130-159 160-189 >/=190 Performed By: #### 2 4331-1 #### ESTELLE Remy ([id number]) [facility] ([facility]) [address] [place] [address] Cholesterol in VLDL [Mass/Vol] 30 mg/dL Normal 0-40 [facility] Comment on above: Performed By: #### 2 4331-1 #### ESTELLE Remy ([id number]) [facility] ([facility]) [address] [place] [address] 23079 CHOLESTEROL/HDL RATIO 3.9 Normal [facility] Comment on above: Result Comment: Ref Values Desirable < 3.4 High Risk > 5.0 Performed By: #### 2 4331-1 #### ESTELLE Remy ([id number]) [facility] ([facility]) [address] [place] [address] 51217 NON HDL CHOLESTEROL 159 mg/dL High 0-149 [facility] Comment on above: Result Comment: Age Desirable Borderline High High Very High 0-19 Y 0 - 119 120 - 144 >/= 145 >/= 160 20-24 Y 0 - 149 150 - 189 >/= 190 ---- >24 Y 30 mg/dL above LDL Cholesterol goal Performed By: #### 2 4331-1 #### ESTELLE Remy ([id number]) [facility] ([facility]) [address] [place] [address] 13024 Triglyceride [Mass/Vol] 149 mg/dL Normal 0-149 [facility] Comment on above: Result Comment: Age Desirable Borderline High High Very High 0 D-90 D 19 - 174 ---- ---- ---- 91 D- 9 Y 0 - 74 75 - 99 >/= 100 ---- 10-19 Y 0 - 89 90 - 129 >/= 130 ---- 20-24 Y 0 - 114 115 - 149 >/= 150 ---- >24 Y 0 - 149 150 - 199 200- 499 >/= 500 Venipuncture immediately after or during the administration of Metamizole may lead to falsely low results. Testing should be performed immediately prior to Metamizole dosing. Performed By: #### 2 4331-1 #### ESTELLE Remy ([id number]) [facility] ([facility]) [address] [place] [address] 79334 CNOVon 01-16-2024 CNOV Office Visit ([facility]WSTR ) ----- SANDRA SANCHEZ ([id number]) 1970 F Date Time Provider Department 01/16/24 6:30 PM ALONDRA PONCE [facility] During your visit today, we recorded the following information about you: Temperature Pulse Respiration Blood pressure 98.4 degrees 87/minute 18/minute 130/86 Weight 68 kg Alondra Ponce APRN.FASHION ILLUSTRATOR 01/16/2024 6:46 PM Signed Subjective Patient came in with complaints of left inner eye discomfort and redness. Patient says she does not have any blurred vision due to it. Patient says has been about 4 days. Patient says it does not seem to be getting worse. Patient says it does not seem to be getting better either. She not sure if she got something in it. Says it does hurt to blink. The history is provided by the patient. No computer language coder was used. Eye Problem Review of Systems Constitutional: Negative. Eyes: Positive for pain and redness. Negative for blurred vision, double vision and photophobia. Skin: Negative. Objective Physical Exam Constitutional: Appearance: Normal appearance. Eyes: Comments: Area marked above shows erythema. Possible stye on the inner canthus of the upper eyelid. Purple area butterfield where corneal abrasion is located. Cardiovascular: Pulses: Normal pulses. Neurological: Mental Status: She is alert. 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 No date: Panic attacks PAST SURGICAL HISTORY 1992: DELIVERY ONLY Comment: , low cervical 1989, 1993,: EXC NEUROFIBROMA/NEUROLEMMOMA CUTAN NRV No date: TONSILLECTOMY AND ADENOIDECTOMY Comment: Tonsil/adenoidectomy ALLERGIES Venom-Wasp, Gabapentin, Koselugo [Selumetinib-Vitamin E Tpgs], Methadone, Tramadol, and Tree And Shrub Pollen MEDICATIONS baclofen 5 mg tabletTake 1.5 tablets by mouth three times a day as needed (muscle spasms or nerve pain).Disp: 120 tabletRfl: 0 rizatriptan (MAXALT) 10 mg tabletTake 1 tablet (10 mg) by mouth as needed for migraine headache (see administration instructions). May repeat dose after 2 hours if needed. Maximum daily dose is 30 mg per day.Disp: 12 tabletRfl: 2 DULoxetine (CYMBALTA) 60 mg capsuletake 1 capsule by mouth at bedtimeDisp: 30 capsuleRfl: 2 zolpidem (AMBIEN) 10 mg tabTake 10 mg by mouth at bedtime as needed (insomnia).Disp: Rfl: lamoTRIgine 150 mg tabletTake 0.5 tablets by mouth once daily.Disp: Rfl: 0 (Patient taking differently: Take 75 mg by mouth daily at bedtime.) DOXEPIN 100 MG CAPTake one(1) tablet daily at bedtime.Disp: 30Rfl: 1 (Patient taking differently: Take 150 mg by mouth daily at bedtime.) erythromycin (ROMYCIN) 5 mg/gram (0.5 %) ophthalmic ointmentUse 1 application in the left eye four times daily for 7 days.Disp: 3.5 gRfl: 0 FAMILY HISTORY Problem Relation Age of Onset No Known Problems Mother Arthritis Father other (MVP) Father Mitral valve prolapse with tachycardia No Known Problems Sister No Known Problems Brother Cancer Maternal Grandfather bladder Social History Tobacco Use Smoking status: Never Smokeless tobacco: Never Substance Use Topics Alcohol use: No Drug use: Yes Types: Marijuana ASSESSMENT/PLAN: 1. Irritation of eye - ICD9: 379.99, ICD10: H57.89 (primary diagnosis) - FLUORESCEIN 1 MG EYE STRIPS - TETRACAINE HCL (PF) 0.5 % EYE DROPS 2. Abrasion of left cornea, initial encounter - ICD9: 918.1, ICD10: S05.02XA - ERYTHROMYCIN 5 MG/GRAM (0.5 %) EYE OINTMENT Patient tolerated procedure well. Patient was educated about proper use of medication and supportive therapies. Patient was educated if signs and symptoms do not improve she needs to go to the ER. Patient was okay with this care plan. Alondra Ponce APRN.FASHION ILLUSTRATOR Allergies As of Date: 01/16/2024 Noted Allergy Reaction VENOM-WASP 11/08/2021 10 - Anaphylaxis GABAPENTIN 11/08/2021 14 - Other: See Comments Comments: Urinary retention KOSELUGO (SELUMETINIB-VITAMIN E T*11/08/2021 14 - Other: See Comments Comments: Rash, red skin, swelling, diarrhea/constipation, visual changes, METHADONE 11/08/2021 1 - Mental Status Change Comments: Irritability and weight loss TRAMADOL 11/08/2021 1 - Mental Status Change TREE AND SHRUB POLLEN 11/08/2021 14 - Other: See Comments Comments: Runny eyes, rhinorrhea, sneezing. Spring and fall. Date Reviewed: 01/16/2024 Reviewed by: Candace Allred LPN - Fully Assessed Reason for Visit: Eye Problem [43] Cmt: Left eye, irritation and swelling in corner near nose, burning and redness x 4 days goup in corner in morning Primary Visit Diagnosis:Irritation of eye [H57.89] Other Visit Diagnosis:Abrasion of left cornea, initial encounter [S05.02XA] Order(s):fluorescein 1 mg 1 Strip (FLUORETS)Disp: Rfl: tetracaine (PF) 0.5 % 1 Drop (OPTICAINE)Disp: Rfl: erythromycin (R (more content not included)... Normal [facility] CNOVon 12-12-2023 CNOV Office Visit (REHC ) ----- SANDRA SANCHEZ ([id number]) 1970 F Date Time Provider Department 12/12/23 1:00 PM [facility] During your visit today, we recorded the following information about you: Temperature Pulse Respiration Blood pressure 98.1 degrees 96/minute 18/minute 109/72 Weight 65.9 kg Candido Chavez MD 12/16/2023 10:21 AM Signed Department of Physical Medicine and Rehabilitation Oncology Rehabilitation Outpatient Note CHIEF COMPLAINT: Upper neck pain HISTORY OF PRESENT ILLNESS: This is a 53 year old female with a history of IBS, panic disorder, and peripheral nerve sheath tumors. She started on selumetinib approximately 6 months ago for dysphagia and neck pain thought to be due to progressive neurofibromas. This medication was dose reduced and eventually stopped when she presented to [facility] during 08/2021. Recent imaging of cervical spine and soft tissue neck MRIs not demonstrating radiographic progression. The patient presents today for evaluation of left sided upper neck pain. Reports tumors on her left scapular and around her spine. Turning her neck to the left is difficult. Also reports numbness in her feet and hands and that her balance is a bit off. She is finally able to wear shoes again. Has also tried reflexology and medication, and dry needling, massage therapy, and PT did not help alleviate this pain. Has experienced these sensations her whole life. Baclofen takes the burning away but not the tightness and she did not notice a difference going from 5mg tid to 7.5 mg bid. Takes cymbalta 60 mg po nightly. She takes this at night and makes her sleepy. 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 Gen: In no acute distress; presenting today with her mom Head: normocephalic, atraumatic EENT: EOMI, hearing grossly normal Resp: regular, non - labored CV: no apparent tachycardia; extremities are warm Skin: no skin breakdown or abrasions on exposed skin Lymph: no clubbing, cyanosis, edema visible Neuro: Fluent speech, CN exam grossly normal MSK: Inspection: good muscle bulk throughout ROM: cervical spine: rotation 45 degrees to the R, ~90 degrees to the L Reflexes: RIGHT LEFT Triceps 1+ 2 Biceps 1+ 1+ Brachioradialis NT NT Patellar 3+ 3+ Achilles 0 0 Palpation: +firm tissue to palpation in LUE (trapezius mm) Sensation: grossly intact in UE and LE dermatomes Strength: RIGHT LEFT well reactivator operator 3 3 interossei 4 4 APB 4 4 FDP 4 4 ECRL/ECRB 5 5 biceps 5 5 triceps 5 5 deltoid 5 5 hip flexors 5 5 abductors 5 5 adductors 5 5 quadriceps 5 5 hamstrings 5 5 DF 3 5 PF 4 5 Special tests: -Cason's, -Babinski Gait: normal, non-antalgic Psych: pleasant; cooperative BMI: Body mass index is 23.81 kg/m?. MEDICATIONS: Current Outpatient Medications Medication Sig baclofen 5 mg tablet Take 1.5 tablets by mouth three times a day as needed (muscle spasms or nerve pain). rizatriptan (MAXALT) 10 mg tablet Take 1 tablet (10 mg) by mouth as needed for migraine headache (see administration instructions). May repeat dose after 2 hours if needed. Maximum daily dose is 30 mg per day. DULoxetine (CYMBALTA) 60 mg capsule take 1 capsule by mouth at bedtime zolpidem (AMBIEN) 10 mg tab Take 10 mg by mouth daily at bedtime. lamoTRIgine 150 mg tablet Take 0.5 tablets by mouth once daily. (Patient taking differently: Take 75 mg by mouth daily at bedtime.) DOXEPIN 100 MG CAP Take one(1) tablet daily at bedtime. (Patient taking differently: Take 150 mg by mouth daily at bedtime.) No current facility-administered medications for this visit. ALLERGIES: Allergies: Venom-Wasp Anaphylaxis Gabapentin Other: See Comments Comment:Urinary retention Koselugo [Selumetin* Other: See Comments Comment:Rash, red skin, swelling, diarrhea/constipation, visual changes, Methadone Mental Status Change Comment:Irritability and weight loss Tramadol Mental Status Change Tree And Shrub Poll* Other: See Comments Comment:Runny eyes, rhinorrhea, sneezing. Spring and fall. PERTINENT LABS: Hematocrit Date Value Ref Range Status 11/22/2003 39.2 37 - 47 % Final WBC Date Value Ref Range Status 11/22/2003 5.13 4.0 - 11.0 k/uL Final Specific [place], Ur Date Value Ref Range Status 01/22/2013 1.010 1.005 - 1.030 Final Glucose, Urine Date Value Ref Range Status 01/22/2013 neg Neg mg/dL Fin (more content not included)... Normal [facility] MR Cervical spine WO and W c arirast Issac 10-21-2023 * * *Final Report* * * DATE OF EXAM: Oct 21 2023 11:03AM [facility] 0298 - MRI CERVICAL SPINE WO/W IVCON / PROCEDURE REASON: Neurofibromatosis (HCC) * * * * Physician Interpretation * * * * EXAMINATION: MRI CERVICAL SPINE WO/W IVCON, MRI THORACIC SPINE WO/W IVCON, MRI LUMBAR SPINE WO/W IVCON CLINICAL HISTORY: Neurofibromatosis (HCC) TECHNIQUE: Routine cervical, thoracic, and lumbosacral spine MR protocol without and with intravenous gadolinium. MQ: [id number]_3 Contrast: Dotarem. Contrast Dose: 13 cc Route of Administration: IV COMPARISON: Complete spine MRI 10/08/2022 RESULT: CERVICAL: Counting reference: Craniocervical junction. Anatomic Variants: None. Localizer images: No significant findings. Alignment: Straightening the normal cervical lordosis. Craniocervical junction: Craniocervical junction is normal. Cord: The cervical spinal cord is within normal limits of signal intensity and morphology. Bone marrow signal/fracture: No evidence of pathologic marrow infiltration. Mild chronic loss height of the superior endplate of C5. Cervical soft tissues: Large left prevertebral T1 hypointense T2/STIR hyperintense heterogeneously enhancing lesion measuring up to 2.2 x 2.2 x 6.0 cm extending from the C5 to the C7-T1 level, similar to the prior exam, minimally increased since the prior exam and mildly increased since more remote outside exams from 2021, although limited evaluation on that examination due to [id number]. Smaller right prevertebral lesions in the lower cervical spine with similar imaging characteristics are also unchanged. Canal and foramina: C2-C3: Canal and foramina are patent. C3-C4: There is disc degeneration with disc osteophyte complex, uncovertebral spurring, and facet arthropathy causing mild left foraminal stenosis without significant canal narrowing. C4-C5: There is disc degeneration with disc osteophyte complex, uncovertebral spurring, and facet arthropathy without significant canal or foraminal narrowing. C5-C6: There is disc degeneration with disc osteophyte complex, uncovertebral spurring, and facet arthropathy causing mild to moderate canal narrowing, mild right and moderate left foraminal stenosis. C6-C7: Canal and foramina are patent. C7-T1: Canal and foramina are patent. THORACIC: Counting reference: Craniocervical and lumbosacral junctions. For the purposes of this report, L4-5 is considered the level of the iliac crest and assume there are 5 lumbar-type vertebrae. Anatomic variant: None. Localizer images: No significant findings. Alignment: Alignment is anatomic. Cord: The thoracic spinal cord is within normal limits of signal intensity and morphology. Bone marrow signal/fracture: No evidence of pathologic marrow infiltration. No evidence of prior fracture. Thoracic soft tissues: Innumerable paravertebral lesions adjacent to the thoracic spine MR again noted. Additionally, paravertebral lesions extending into the bilateral extraforaminal region in the upper thoracic spine from the T1-T2 level to the T5-T6 level are also again noted. There is extension into the left T1-T2, T2-T3, T3-T4 foramina, and right T1-T2, T2-T3, and T3-T4 foramina. Most of these lesions are unchanged compared to prior exam from 2022 and more remote outside exam from 2019. However, the right T1-T2 lesion measuring up to 4.1 cm on image 6 of series 18 is enlarged since 2020, and the left T1-T2 lesion measuring up to 3.1 cm on image 4 series 18 are both mildly enlarged. No extension into the canal. Canal and foramina: Otherwise, no significant thoracic canal or foraminal stenosis within the constraints of the study. LUMBAR: Counting reference: Craniocervical and lumbosacral junctions. For the purposes of this report, L4-5 is considered the level of the iliac crest and assume there are 5 lumbar-type vertebrae. Anatomic variant: None. Localizer images: No significant findings. Alignment: Alignment is anatomic. Bone marrow signal/fracture: Minimal type I degenerative change at the anterior inferior endplate of L2. No evidence of pathologic marrow infiltration. No evidence of prior fracture. Conus: The conus is within normal limits of signal intensity and morphology. Paraspinal soft tissues: Innumerable T1 hypointense T2/STIR hyperintense, heterogeneously enhancing lesions in the retroperitoneal and paravertebral regions throughout the lumbar spine are again noted, not 16 change since prior exam, or remote exam from 2019. No lesions in the canal or foramina of the lumbar spine. Canal and foramina: Mild diffuse disc bulges at L1-L2, L2-L3, L4-L5, and L5-S1, without significant canal or foraminal narrowing. Sacrum and iliac wings: See concurrent MRI of the pelvi (more content not included)... DIVISION OF RADIOLOGY Provider, [facility] - 10/21/2023 * * *Final Report* * * DATE OF EXAM: Oct 21 2023 11:03AM [facility] 0298 - MRI CERVICAL SPINE WO/W IVCON / PROCEDURE REASON: Neurofibromatosis (HCC) * * * * Physician Interpretation * * * * EXAMINATION: MRI CERVICAL SPINE WO/W IVCON, MRI THORACIC SPINE WO/W IVCON, MRI LUMBAR SPINE WO/W IVCON CLINICAL HISTORY: Neurofibromatosis (HCC) TECHNIQUE: Routine cervical, thoracic, and lumbosacral spine MR protocol without and with intravenous gadolinium. MQ: [id number]_3 Contrast: Dotarem. Contrast Dose: 13 cc Route of Administration: IV COMPARISON: Complete spine MRI 10/08/2022 RESULT: CERVICAL: Counting reference: Craniocervical junction. Anatomic Variants: None. Localizer images: No significant findings. Alignment: Straightening the normal cervical lordosis. Craniocervical junction: Craniocervical junction is normal. Cord: The cervical spinal cord is within normal limits of signal intensity and morphology. Bone marrow signal/fracture: No evidence of pathologic marrow infiltration. Mild chronic loss height of the superior endplate of C5. Cervical soft tissues: Large left prevertebral T1 hypointense T2/STIR hyperintense heterogeneously enhancing lesion measuring up to 2.2 x 2.2 x 6.0 cm extending from the C5 to the C7-T1 level, similar to the prior exam, minimally increased since the prior exam and mildly increased since more remote outside exams from 2021, although limited evaluation on that examination due to [id number]. Smaller right prevertebral lesions in the lower cervical spine with similar imaging characteristics are also unchanged. Canal and foramina: C2-C3: Canal and foramina are patent. C3-C4: There is disc degeneration with disc osteophyte complex, uncovertebral spurring, and facet arthropathy causing mild left foraminal stenosis without significant canal narrowing. C4-C5: There is disc degeneration with disc osteophyte complex, uncovertebral spurring, and facet arthropathy without significant canal or foraminal narrowing. C5-C6: There is disc degeneration with disc osteophyte complex, uncovertebral spurring, and facet arthropathy causing mild to moderate canal narrowing, mild right and moderate left foraminal stenosis. C6-C7: Canal and foramina are patent. C7-T1: Canal and foramina are patent. THORACIC: Counting reference: Craniocervical and lumbosacral junctions. For the purposes of this report, L4-5 is considered the level of the iliac crest and assume there are 5 lumbar-type vertebrae. Anatomic variant: None. Localizer images: No significant findings. Alignment: Alignment is anatomic. Cord: The thoracic spinal cord is within normal limits of signal intensity and morphology. Bone marrow signal/fracture: No evidence of pathologic marrow infiltration. No evidence of prior fracture. Thoracic soft tissues: Innumerable paravertebral lesions adjacent to the thoracic spine MR again noted. Additionally, paravertebral lesions extending into the bilateral extraforaminal region in the upper thoracic spine from the T1-T2 level to the T5-T6 level are also again noted. There is extension into the left T1-T2, T2-T3, T3-T4 foramina, and right T1-T2, T2-T3, and T3-T4 foramina. Most of these lesions are unchanged compared to prior exam from 2022 and more remote outside exam from 2019. However, the right T1-T2 lesion measuring up to 4.1 cm on image 6 of series 18 is enlarged since 2020, and the left T1-T2 lesion measuring up to 3.1 cm on image 4 series 18 are both mildly enlarged. No extension into the canal. Canal and foramina: Otherwise, no significant thoracic canal or foraminal stenosis within the constraints of the study. LUMBAR: Counting reference: Craniocervical and lumbosacral junctions. For the purposes of this report, L4-5 is considered the level of the iliac crest and assume there are 5 lumbar-type vertebrae. Anatomic variant: None. Localizer images: No significant findings. Alignment: Alignment is anatomic. Bone marrow signal/fracture: Minimal type I degenerative change at the anterior inferior endplate of L2. No evidence of pathologic marrow infiltration. No evidence of prior fracture. Conus: The conus is within normal limits of signal intensity and morphology. Paraspinal soft tissues: Innumerable T1 hypointense T2/STIR hyperintense, heterogeneously enhancing lesions in the retroperitoneal and paravertebral regions throughout the lumbar spine are again noted, not 16 change since prior exam, or remote exam from 2019. No lesions in the canal or foramina of the lumbar spine. Canal and foramina: Mild diffuse disc bulges at L1-L2, L2-L3, L4-L5, and L5-S1, without significant canal or foraminal narrowing. Sacrum and iliac wings: See concurrent MRI of the pelvis. IMPRESSION (more content not included)... [facility] MR Lumbar spine WO and W con trast Issac 10-21-2023 * * *Final Report* * * DATE OF EXAM: Oct 21 2023 11:03AM [facility] 0304 - MRI LUMBAR SPINE WO/W IVCON / PROCEDURE REASON: Neurofibromatosis (HCC) * * * * Physician Interpretation * * * * EXAMINATION: MRI CERVICAL SPINE WO/W IVCON, MRI THORACIC SPINE WO/W IVCON, MRI LUMBAR SPINE WO/W IVCON CLINICAL HISTORY: Neurofibromatosis (HCC) TECHNIQUE: Routine cervical, thoracic, and lumbosacral spine MR protocol without and with intravenous gadolinium. MQ: [id number]_3 Contrast: Dotarem. Contrast Dose: 13 cc Route of Administration: IV COMPARISON: Complete spine MRI 10/08/2022 RESULT: CERVICAL: Counting reference: Craniocervical junction. Anatomic Variants: None. Localizer images: No significant findings. Alignment: Straightening the normal cervical lordosis. Craniocervical junction: Craniocervical junction is normal. Cord: The cervical spinal cord is within normal limits of signal intensity and morphology. Bone marrow signal/fracture: No evidence of pathologic marrow infiltration. Mild chronic loss height of the superior endplate of C5. Cervical soft tissues: Large left prevertebral T1 hypointense T2/STIR hyperintense heterogeneously enhancing lesion measuring up to 2.2 x 2.2 x 6.0 cm extending from the C5 to the C7-T1 level, similar to the prior exam, minimally increased since the prior exam and mildly increased since more remote outside exams from 2021, although limited evaluation on that examination due to [id number]. Smaller right prevertebral lesions in the lower cervical spine with similar imaging characteristics are also unchanged. Canal and foramina: C2-C3: Canal and foramina are patent. C3-C4: There is disc degeneration with disc osteophyte complex, uncovertebral spurring, and facet arthropathy causing mild left foraminal stenosis without significant canal narrowing. C4-C5: There is disc degeneration with disc osteophyte complex, uncovertebral spurring, and facet arthropathy without significant canal or foraminal narrowing. C5-C6: There is disc degeneration with disc osteophyte complex, uncovertebral spurring, and facet arthropathy causing mild to moderate canal narrowing, mild right and moderate left foraminal stenosis. C6-C7: Canal and foramina are patent. C7-T1: Canal and foramina are patent. THORACIC: Counting reference: Craniocervical and lumbosacral junctions. For the purposes of this report, L4-5 is considered the level of the iliac crest and assume there are 5 lumbar-type vertebrae. Anatomic variant: None. Localizer images: No significant findings. Alignment: Alignment is anatomic. Cord: The thoracic spinal cord is within normal limits of signal intensity and morphology. Bone marrow signal/fracture: No evidence of pathologic marrow infiltration. No evidence of prior fracture. Thoracic soft tissues: Innumerable paravertebral lesions adjacent to the thoracic spine MR again noted. Additionally, paravertebral lesions extending into the bilateral extraforaminal region in the upper thoracic spine from the T1-T2 level to the T5-T6 level are also again noted. There is extension into the left T1-T2, T2-T3, T3-T4 foramina, and right T1-T2, T2-T3, and T3-T4 foramina. Most of these lesions are unchanged compared to prior exam from 2022 and more remote outside exam from 2019. However, the right T1-T2 lesion measuring up to 4.1 cm on image 6 of series 18 is enlarged since 2020, and the left T1-T2 lesion measuring up to 3.1 cm on image 4 series 18 are both mildly enlarged. No extension into the canal. Canal and foramina: Otherwise, no significant thoracic canal or foraminal stenosis within the constraints of the study. LUMBAR: Counting reference: Craniocervical and lumbosacral junctions. For the purposes of this report, L4-5 is considered the level of the iliac crest and assume there are 5 lumbar-type vertebrae. Anatomic variant: None. Localizer images: No significant findings. Alignment: Alignment is anatomic. Bone marrow signal/fracture: Minimal type I degenerative change at the anterior inferior endplate of L2. No evidence of pathologic marrow infiltration. No evidence of prior fracture. Conus: The conus is within normal limits of signal intensity and morphology. Paraspinal soft tissues: Innumerable T1 hypointense T2/STIR hyperintense, heterogeneously enhancing lesions in the retroperitoneal and paravertebral regions throughout the lumbar spine are again noted, not 16 change since prior exam, or remote exam from 2019. No lesions in the canal or foramina of the lumbar spine. Canal and foramina: Mild diffuse disc bulges at L1-L2, L2-L3, L4-L5, and L5-S1, without significant canal or foraminal narrowing. Sacrum and iliac wings: See concurrent MRI of the pelvis. (more content not included)... DIVISION OF RADIOLOGY Provider, [facility] - 10/21/2023 * * *Final Report* * * DATE OF EXAM: Oct 21 2023 11:03AM [facility] 0304 - MRI LUMBAR SPINE WO/W IVCON / PROCEDURE REASON: Neurofibromatosis (HCC) * * * * Physician Interpretation * * * * EXAMINATION: MRI CERVICAL SPINE WO/W IVCON, MRI THORACIC SPINE WO/W IVCON, MRI LUMBAR SPINE WO/W IVCON CLINICAL HISTORY: Neurofibromatosis (HCC) TECHNIQUE: Routine cervical, thoracic, and lumbosacral spine MR protocol without and with intravenous gadolinium. MQ: [id number]_3 Contrast: Dotarem. Contrast Dose: 13 cc Route of Administration: IV COMPARISON: Complete spine MRI 10/08/2022 RESULT: CERVICAL: Counting reference: Craniocervical junction. Anatomic Variants: None. Localizer images: No significant findings. Alignment: Straightening the normal cervical lordosis. Craniocervical junction: Craniocervical junction is normal. Cord: The cervical spinal cord is within normal limits of signal intensity and morphology. Bone marrow signal/fracture: No evidence of pathologic marrow infiltration. Mild chronic loss height of the superior endplate of C5. Cervical soft tissues: Large left prevertebral T1 hypointense T2/STIR hyperintense heterogeneously enhancing lesion measuring up to 2.2 x 2.2 x 6.0 cm extending from the C5 to the C7-T1 level, similar to the prior exam, minimally increased since the prior exam and mildly increased since more remote outside exams from 2021, although limited evaluation on that examination due to [id number]. Smaller right prevertebral lesions in the lower cervical spine with similar imaging characteristics are also unchanged. Canal and foramina: C2-C3: Canal and foramina are patent. C3-C4: There is disc degeneration with disc osteophyte complex, uncovertebral spurring, and facet arthropathy causing mild left foraminal stenosis without significant canal narrowing. C4-C5: There is disc degeneration with disc osteophyte complex, uncovertebral spurring, and facet arthropathy without significant canal or foraminal narrowing. C5-C6: There is disc degeneration with disc osteophyte complex, uncovertebral spurring, and facet arthropathy causing mild to moderate canal narrowing, mild right and moderate left foraminal stenosis. C6-C7: Canal and foramina are patent. C7-T1: Canal and foramina are patent. THORACIC: Counting reference: Craniocervical and lumbosacral junctions. For the purposes of this report, L4-5 is considered the level of the iliac crest and assume there are 5 lumbar-type vertebrae. Anatomic variant: None. Localizer images: No significant findings. Alignment: Alignment is anatomic. Cord: The thoracic spinal cord is within normal limits of signal intensity and morphology. Bone marrow signal/fracture: No evidence of pathologic marrow infiltration. No evidence of prior fracture. Thoracic soft tissues: Innumerable paravertebral lesions adjacent to the thoracic spine MR again noted. Additionally, paravertebral lesions extending into the bilateral extraforaminal region in the upper thoracic spine from the T1-T2 level to the T5-T6 level are also again noted. There is extension into the left T1-T2, T2-T3, T3-T4 foramina, and right T1-T2, T2-T3, and T3-T4 foramina. Most of these lesions are unchanged compared to prior exam from 2022 and more remote outside exam from 2019. However, the right T1-T2 lesion measuring up to 4.1 cm on image 6 of series 18 is enlarged since 2019, and the left T1-T2 lesion measuring up to 3.1 cm on image 4 series 18 are both mildly enlarged. No extension into the canal. Canal and foramina: Otherwise, no significant thoracic canal or foraminal stenosis within the constraints of the study. LUMBAR: Counting reference: Craniocervical and lumbosacral junctions. For the purposes of this report, L4-5 is considered the level of the iliac crest and assume there are 5 lumbar-type vertebrae. Anatomic variant: None. Localizer images: No significant findings. Alignment: Alignment is anatomic. Bone marrow signal/fracture: Minimal type I degenerative change at the anterior inferior endplate of L2. No evidence of pathologic marrow infiltration. No evidence of prior fracture. Conus: The conus is within normal limits of signal intensity and morphology. Paraspinal soft tissues: Innumerable T1 hypointense T2/STIR hyperintense, heterogeneously enhancing lesions in the retroperitoneal and paravertebral regions throughout the lumbar spine are again noted, not 16 change since prior exam, or remote exam from 2019. No lesions in the canal or foramina of the lumbar spine. Canal and foramina: Mild diffuse disc bulges at L1-L2, L2-L3, L4-L5, and L5-S1, without significant canal or foraminal narrowing. Sacrum and iliac wings: See concurrent MRI of the pelvis. IMPRESSION I (more content not included)... [facility] MR Pelvis WO and W contrast Issac 10-21-2023 IMPRESSION: Innumerable neurofibromas as described, overall similar in size and extent compared to 10/08/2022. Composing Machine Operator/Tender: TAVO Transcribe Date/Time: Oct 21 2023 11:14A Dictated by : RONAL LEYVA MD This examination was interpreted and the report reviewed and electronically signed by: DANIELLA BATEMAN MD on Oct 21 2023 11:56AM [facility] DIVISION OF RADIOLOGY * * *Final Report* * * DATE OF EXAM: Oct 21 2023 11:03AM [facility] 0742 - MRI PELVIS WO/W IVCON / PROCEDURE REASON: Neurofibromatosis (HCC) * * * * Physician Interpretation * * * * EXAMINATION: MRI PELVIS WO/W IVCON HISTORY: Neurofibromatosis, follow-up. TECHNIQUE: Routine multiplanar MRI of the pelvis without and with contrast; 13 Dotarem IV COMPARISON: 10/08/2022. RESULT: Innumerable retroperitoneal masses, predominantly hyperintense with some areas of central hypointensity on fluid weighted images. No significant enhancement on postcontrast images. The masses extend inferiorly in the retroperitoneum and are seen along the course of the lumbar plexus nerve roots and sciatic nerves bilaterally. Multiple masses are also seen within the subcutaneous tissues overlying the gluteal muscles. Overall, the masses are similar in size compared to prior. For example, a conglomerate anterior to the S1 vertebral body measures approximately 4.9 x 2.0 x 3.6 cm (unchanged). An additional conglomerate in the central canal extending inferiorly from the S2 level measures 5.0 x 2.7 x 5.4 cm, previously 5.1 x 3.3 x 5.4 cm. There is associated osseous remodeling of the sacral neural foramina associated with this lesion. Bone Marrow: No fractures or suspicious marrow replacing lesions. Hip joints: Large indze-xm-hoqf images of the hips demonstrate mild degenerative changes bilaterally. Evaluation of articular cartilage and labrum is limited. No significant joint effusion. Sacroiliac joints: Within normal limits. Pubic symphysis: Mild mechanical degenerative changes. Tendons: The iliopsoas, hamstring, gluteal, and rectus femoris tendons are intact. Mild bilateral proximal hamstrings tendinosis. Muscles: Mild edema within the piriformis muscles bilaterally, decreased compared to prior. Otherwise within normal limits. Other: No other significant findings. Localizer images: Innumerable hyperintense retroperitoneal masses superiorly beyond the field of view of the diagnostic images, better evaluated on same-day dedicated spine MR. Multiple hyperintense masses along the chest wall near the right costophrenic angle, the largest of which measures 1.9 cm. Additional hyperintense mass along the left lower pleural surface, only minimally visualized. These likely represent additional neurofibromas. DIVISION OF RADIOLOGY Provider, [facility] - 10/21/2023 * * *Final Report* * * DATE OF EXAM: Oct 21 2023 11:03AM [facility] 0742 - MRI PELVIS WO/W IVCON / PROCEDURE REASON: Neurofibromatosis (HCC) * * * * Physician Interpretation * * * * EXAMINATION: MRI PELVIS WO/W IVCON HISTORY: Neurofibromatosis, follow-up. TECHNIQUE: Routine multiplanar MRI of the pelvis without and with contrast; 13 Dotarem IV COMPARISON: 10/08/2022. RESULT: Innumerable retroperitoneal masses, predominantly hyperintense with some areas of central hypointensity on fluid weighted images. No significant enhancement on postcontrast images. The masses extend inferiorly in the retroperitoneum and are seen along the course of the lumbar plexus nerve roots and sciatic nerves bilaterally. Multiple masses are also seen within the subcutaneous tissues overlying the gluteal muscles. Overall, the masses are similar in size compared to prior. For example, a conglomerate anterior to the S1 vertebral body measures approximately 4.9 x 2.0 x 3.6 cm (unchanged). An additional conglomerate in the central canal extending inferiorly from the S2 level measures 5.0 x 2.7 x 5.4 cm, previously 5.1 x 3.3 x 5.4 cm. There is associated osseous remodeling of the sacral neural foramina associated with this lesion. Bone Marrow: No fractures or suspicious marrow replacing lesions. Hip joints: Large tkkpo-qw-aexr images of the hips demonstrate mild degenerative changes bilaterally. Evaluation of articular cartilage and labrum is limited. No significant joint effusion. Sacroiliac joints: Within normal limits. Pubic symphysis: Mild mechanical degenerative changes. Tendons: The iliopsoas, hamstring, gluteal, and rectus femoris tendons are intact. Mild bilateral proximal hamstrings tendinosis. Muscles: Mild edema within the piriformis muscles bilaterally, decreased compared to prior. Otherwise within normal limits. Other: No other significant findings. Localizer images: Innumerable hyperintense retroperitoneal masses superiorly beyond the field of view of the diagnostic images, better evaluated on same-day dedicated spine MR. Multiple hyperintense masses along the chest wall near the right costophrenic angle, the largest of which measures 1.9 cm. Additional hyperintense mass along the left lower pleural surface, only minimally visualized. These likely represent additional neurofibromas. IMPRESSION IMPRESSION: Innumerable neurofibromas as described, overall similar in size and extent compared to 10/08/2022. Composing Machine Operator/Tender: PSCB Transcribe Date/Time: Oct 21 2023 11:14A Dictated by : RONAL LEYVA MD This examination was interpreted and the report reviewed and electronically signed by: DANIELLA BATEMAN MD on Oct 21 2023 11:56AM EST [facility] MR Pelvis WO and W contrast IVOrdered By: [facility]cf Provider on 10-21-2023 [facility] MR Thoracic spine WO and W c ontrast Issac 10-21-2023 * * *Final Report* * * DATE OF EXAM: Oct 21 2023 11:03AM [facility] 0326 - MRI THORACIC SPINE WO/W IVCON / PROCEDURE REASON: Neurofibromatosis (HCC) * * * * Physician Interpretation * * * * EXAMINATION: MRI CERVICAL SPINE WO/W IVCON, MRI THORACIC SPINE WO/W IVCON, MRI LUMBAR SPINE WO/W IVCON CLINICAL HISTORY: Neurofibromatosis (HCC) TECHNIQUE: Routine cervical, thoracic, and lumbosacral spine MR protocol without and with intravenous gadolinium. MQ: [id number]_3 Contrast: Dotarem. Contrast Dose: 13 cc Route of Administration: IV COMPARISON: Complete spine MRI 10/08/2022 RESULT: CERVICAL: Counting reference: Craniocervical junction. Anatomic Variants: None. Localizer images: No significant findings. Alignment: Straightening the normal cervical lordosis. Craniocervical junction: Craniocervical junction is normal. Cord: The cervical spinal cord is within normal limits of signal intensity and morphology. Bone marrow signal/fracture: No evidence of pathologic marrow infiltration. Mild chronic loss height of the superior endplate of C5. Cervical soft tissues: Large left prevertebral T1 hypointense T2/STIR hyperintense heterogeneously enhancing lesion measuring up to 2.2 x 2.2 x 6.0 cm extending from the C5 to the C7-T1 level, similar to the prior exam, minimally increased since the prior exam and mildly increased since more remote outside exams from 2021, although limited evaluation on that examination due to [id number]. Smaller right prevertebral lesions in the lower cervical spine with similar imaging characteristics are also unchanged. Canal and foramina: C2-C3: Canal and foramina are patent. C3-C4: There is disc degeneration with disc osteophyte complex, uncovertebral spurring, and facet arthropathy causing mild left foraminal stenosis without significant canal narrowing. C4-C5: There is disc degeneration with disc osteophyte complex, uncovertebral spurring, and facet arthropathy without significant canal or foraminal narrowing. C5-C6: There is disc degeneration with disc osteophyte complex, uncovertebral spurring, and facet arthropathy causing mild to moderate canal narrowing, mild right and moderate left foraminal stenosis. C6-C7: Canal and foramina are patent. C7-T1: Canal and foramina are patent. THORACIC: Counting reference: Craniocervical and lumbosacral junctions. For the purposes of this report, L4-5 is considered the level of the iliac crest and assume there are 5 lumbar-type vertebrae. Anatomic variant: None. Localizer images: No significant findings. Alignment: Alignment is anatomic. Cord: The thoracic spinal cord is within normal limits of signal intensity and morphology. Bone marrow signal/fracture: No evidence of pathologic marrow infiltration. No evidence of prior fracture. Thoracic soft tissues: Innumerable paravertebral lesions adjacent to the thoracic spine MR again noted. Additionally, paravertebral lesions extending into the bilateral extraforaminal region in the upper thoracic spine from the T1-T2 level to the T5-T6 level are also again noted. There is extension into the left T1-T2, T2-T3, T3-T4 foramina, and right T1-T2, T2-T3, and T3-T4 foramina. Most of these lesions are unchanged compared to prior exam from 2022 and more remote outside exam from 2019. However, the right T1-T2 lesion measuring up to 4.1 cm on image 6 of series 18 is enlarged since 2020, and the left T1-T2 lesion measuring up to 3.1 cm on image 4 series 18 are both mildly enlarged. No extension into the canal. Canal and foramina: Otherwise, no significant thoracic canal or foraminal stenosis within the constraints of the study. LUMBAR: Counting reference: Craniocervical and lumbosacral junctions. For the purposes of this report, L4-5 is considered the level of the iliac crest and assume there are 5 lumbar-type vertebrae. Anatomic variant: None. Localizer images: No significant findings. Alignment: Alignment is anatomic. Bone marrow signal/fracture: Minimal type I degenerative change at the anterior inferior endplate of L2. No evidence of pathologic marrow infiltration. No evidence of prior fracture. Conus: The conus is within normal limits of signal intensity and morphology. Paraspinal soft tissues: Innumerable T1 hypointense T2/STIR hyperintense, heterogeneously enhancing lesions in the retroperitoneal and paravertebral regions throughout the lumbar spine are again noted, not 16 change since prior exam, or remote exam from 2019. No lesions in the canal or foramina of the lumbar spine. Canal and foramina: Mild diffuse disc bulges at L1-L2, L2-L3, L4-L5, and L5-S1, without significant canal or foraminal narrowing. Sacrum and iliac wings: See concurrent MRI of the pelvi (more content not included)... DIVISION OF RADIOLOGY Provider, [facility] - 10/21/2023 * * *Final Report* * * DATE OF EXAM: Oct 21 2023 11:03AM [facility] 0326 - MRI THORACIC SPINE WO/W IVCON / PROCEDURE REASON: Neurofibromatosis (HCC) * * * * Physician Interpretation * * * * EXAMINATION: MRI CERVICAL SPINE WO/W IVCON, MRI THORACIC SPINE WO/W IVCON, MRI LUMBAR SPINE WO/W IVCON CLINICAL HISTORY: Neurofibromatosis (HCC) TECHNIQUE: Routine cervical, thoracic, and lumbosacral spine MR protocol without and with intravenous gadolinium. MQ: [id number]_3 Contrast: Dotarem. Contrast Dose: 13 cc Route of Administration: IV COMPARISON: Complete spine MRI 10/08/2022 RESULT: CERVICAL: Counting reference: Craniocervical junction. Anatomic Variants: None. Localizer images: No significant findings. Alignment: Straightening the normal cervical lordosis. Craniocervical junction: Craniocervical junction is normal. Cord: The cervical spinal cord is within normal limits of signal intensity and morphology. Bone marrow signal/fracture: No evidence of pathologic marrow infiltration. Mild chronic loss height of the superior endplate of C5. Cervical soft tissues: Large left prevertebral T1 hypointense T2/STIR hyperintense heterogeneously enhancing lesion measuring up to 2.2 x 2.2 x 6.0 cm extending from the C5 to the C7-T1 level, similar to the prior exam, minimally increased since the prior exam and mildly increased since more remote outside exams from 2021, although limited evaluation on that examination due to [id number]. Smaller right prevertebral lesions in the lower cervical spine with similar imaging characteristics are also unchanged. Canal and foramina: C2-C3: Canal and foramina are patent. C3-C4: There is disc degeneration with disc osteophyte complex, uncovertebral spurring, and facet arthropathy causing mild left foraminal stenosis without significant canal narrowing. C4-C5: There is disc degeneration with disc osteophyte complex, uncovertebral spurring, and facet arthropathy without significant canal or foraminal narrowing. C5-C6: There is disc degeneration with disc osteophyte complex, uncovertebral spurring, and facet arthropathy causing mild to moderate canal narrowing, mild right and moderate left foraminal stenosis. C6-C7: Canal and foramina are patent. C7-T1: Canal and foramina are patent. THORACIC: Counting reference: Craniocervical and lumbosacral junctions. For the purposes of this report, L4-5 is considered the level of the iliac crest and assume there are 5 lumbar-type vertebrae. Anatomic variant: None. Localizer images: No significant findings. Alignment: Alignment is anatomic. Cord: The thoracic spinal cord is within normal limits of signal intensity and morphology. Bone marrow signal/fracture: No evidence of pathologic marrow infiltration. No evidence of prior fracture. Thoracic soft tissues: Innumerable paravertebral lesions adjacent to the thoracic spine MR again noted. Additionally, paravertebral lesions extending into the bilateral extraforaminal region in the upper thoracic spine from the T1-T2 level to the T5-T6 level are also again noted. There is extension into the left T1-T2, T2-T3, T3-T4 foramina, and right T1-T2, T2-T3, and T3-T4 foramina. Most of these lesions are unchanged compared to prior exam from 2022 and more remote outside exam from 2019. However, the right T1-T2 lesion measuring up to 4.1 cm on image 6 of series 18 is enlarged since 2020, and the left T1-T2 lesion measuring up to 3.1 cm on image 4 series 18 are both mildly enlarged. No extension into the canal. Canal and foramina: Otherwise, no significant thoracic canal or foraminal stenosis within the constraints of the study. LUMBAR: Counting reference: Craniocervical and lumbosacral junctions. For the purposes of this report, L4-5 is considered the level of the iliac crest and assume there are 5 lumbar-type vertebrae. Anatomic variant: None. Localizer images: No significant findings. Alignment: Alignment is anatomic. Bone marrow signal/fracture: Minimal type I degenerative change at the anterior inferior endplate of L2. No evidence of pathologic marrow infiltration. No evidence of prior fracture. Conus: The conus is within normal limits of signal intensity and morphology. Paraspinal soft tissues: Innumerable T1 hypointense T2/STIR hyperintense, heterogeneously enhancing lesions in the retroperitoneal and paravertebral regions throughout the lumbar spine are again noted, not 16 change since prior exam, or remote exam from 2019. No lesions in the canal or foramina of the lumbar spine. Canal and foramina: Mild diffuse disc bulges at L1-L2, L2-L3, L4-L5, and L5-S1, without significant canal or foraminal narrowing. Sacrum and iliac wings: See concurrent MRI of the pelvis. IMPRESSION (more content not included)... [facility] No Panel Informationon 10-20 IMPRESSION: Innumerable paravertebral lesions throughout the spine as described, likely due to patient's known diagnosis of neurofibromatosis. Most of these lesions are unchanged other than a left prevertebral lesion in the lower cervical spine and right greater than left upper thoracic paravertebral lesions since remote exam from 2019. However, no extension into the canal. No high-grade canal narrowing, cord compression, or abnormal cord signal. Mild spondylosis as described in the cervical and lumbar spine. Cervical Anatomic Variant: None. Assume 7 cervical vertebrae with counting from the craniocervical junction. Anatomic Thoracic/Lumbar Variant: None. L4-5 is considered the level of the iliac crest and assume there are 5 lumbar-type vertebrae. Composing Machine Operator/Tender: TAVO Transcribe Date/Time: Oct 21 2023 11:14A Dictated by : LAVONNE YUEN MD This examination was interpreted and the report reviewed and electronically signed by: LAVONNE YUEN MD on Oct 21 2023 11:39AM [facility] DIVISION OF RADIOLOGY Radiology Study observation (narrative) [facility] No Panel InformationOrdered By: Ccf Provider on 10-21-2023 [facility] URINE CULTURE,BACTERIALon URINE CULTURE,BACTERIAL PATIENT: SANDRA SANCHEZ LOCATION: [address] BILL#: [id number] : 70 AGE: SEX: F ORDERED BY: FABIOLA GOLD SOURCE: URINE COLLECTED: 01/01/23 09:54 ANTIBIOTICS AT [facility].: RECEIVED : 01/02/23 10:25 SITE: Clean Catch/Voided R E S U L T S URINE CULTURE,BACTERIAL FINAL 01/04/23 09:30 ISOLATE1 : Escherichia coli 20,000-80,000 CFU/ML Organism E coli Antibiotic BP INTRP Ampicillin S Ceftriaxone S Cefazolin S Ciprofloxacin S Nitrofurantoin S Gentamicin S Levofloxacin S Piperc/Tazobact S Trimeth/Sulfa S ___ S=SUSCEPTIBLE I=INTERMEDIATE R=RESISTANT SDD=SUSCEPTIBLE DOSE DEPENDENT NS=NONSUSCEPTIBLE X=REPORTED IN ERROR ___ Normal [facility] Comment on above: Performed By: #### U RINC #### [facility] [address] [place] [address] Culture, urineOrdered By: [facility] on 11-12-2022 Bacteria identified Cx Nom (U) Presumptive E. coli [facility] - Chemistry and C hemistry - challengeon 11-12-2022 Bilirubin Ql (U) Negative [facility] Glucose Ql (U) Negative [facility] Ketones Ql (U) Negative [facility] pH (U) 7.5 [pH] [facility] Specific gravity (U) [Rel density] 1.005 [facility] Urobilinogen (U) [Mass/Vol] 0.2752568 mg/dL [facility] - Hematology and Cell countson 11-12-2022 Hemoglobin Ql (U) Negative [facility] - Specimen inform ationon 11-12-2022 Clarity (U) Cloudy [facility] Color (U) YELLOW [facility] - Urinalysison Nitrite Ql (U) Positive [facility] Protein Ql (U) Negative [facility] No Panel Informationon 11-12 Urine Leukocytes Positive [facility] Urine Non-Hemolyzed Blood Negative [facility] No Panel Informationon 10-08 [facility] DIGITAL MAMM SCREENING W/ TO Valadez 09-02-2022 DIGITAL MAMM SCREENING W/ YONG Patient Name: SANDRA SANCHEZ STUDY: DIGITAL MAMM SCREENING W/ YONG; 09/02/2022 3:29 pm ACCESSION NUMBER(S): [id number] ORDERING CLINICIAN: RAMANDEEP SMALLWOOD INDICATION: Screening. History of neurofibromatosis and history of benign right excisional biopsy. COMPARISON: 11/18/2019, 05/09/2017 FINDINGS: 2D and tomosynthesis images were reviewed at 1 mm slice thickness. The breast tissue is extremely dense, which may limit the sensitivity of mammography. No suspicious masses or calcifications are identified. IMPRESSION: No mammographic evidence of malignancy. BI-RADS CATEGORY: Category: 1 - Negative. Recommendation: 1 Year Screening. For any future breast imaging appointments, please call [phone]). Patient letter sent SNORM I personally reviewed the images/study and I agree with the findings as stated. This study was interpreted at [facility], [place], [place]. Electronically signed by: SÁNCHEZ ZUÑIGA MD Normal [facility] CANNABINOID CONFIRM.URINEon 08-03-2022 31-TGA-8-CARBOXY-THC 78 ng/mL Normal [facility] Comment on above: Result Comment: INTE RPRETIVE INFORMATION: THC Metabolite, Urine, Quantitative Methodology: Quantitative Liquid Chromatography-Tandem Mass Spectrometry Positive cutoff: 15 ng/mL For medical purposes only; not valid for forensic use. The drug analyte detected in this assay, 9-carboxy THC, is a metabolite of ztlup-5-eofdkwtdctjgftoukpwy (THC). Detection of 9-carboxy THC suggests use of, or exposure to, a product containing THC. This test cannot distinguish between prescribed or non-prescribed forms of THC, nor can it distinguish between active or passive use. The 9-carboxy THC metabolite can be detected in urine for several weeks. Normalization of results to creatinine concentration can help document elimination or suggest recent use, when specimens are collected at least one week apart. This test was developed and its performance characteristics determined by [employer]. It has not been cleared or approved by the [place] Food and Drug Administration. This test was performed in a CLIA certified laboratory and is intended for clinical purposes. Performed By: [facility] [address] [place] [address] Firesetter: Lavonne Rubalcava MD, PhD Performed By: #### C ANCN #### [facility] [address] [place] [address] OPIATE/OPIOID/BENZO EXTENDED PRESCRIPTION COMPLIANCEon 08-01-2022 6-ACETYLMORPHINE <25 Normal Cutoff <25 [facility] Comment on above: Performed By: #### D SBOP #### [facility] [address] [place] [address] 7-AMINOCLONAZEPAM <25 Normal Cutoff <25 [facility] Comment on above: Performed By: #### D SBOP #### [facility] [address] [place] [address] ALPHA-HYDROXYALPRAZO RIVAS <25 Normal Cutoff <25 [facility] Comment on above: Performed By: #### D SBOP #### [facility] [address] [place] [address] ALPHA-HYDROXYMIDAZOL AM <25 Normal Cutoff <25 [facility] Comment on above: Performed By: #### D SBOP #### [facility] [address] [place] [address] ALPRAZOLAM <25 Normal Cutoff <25 [facility] Comment on above: Performed By: #### D SBOP #### [facility] [address] [place] [address] CHLORDIAZEPOXIDE <25 Normal Cutoff <25 [facility] Comment on above: Performed By: #### D SBOP #### [facility] [address] [place] [address] CLONAZEPAM <25 Normal Cutoff <25 [facility] Comment on above: Performed By: #### D SBOP #### [facility] [address] [place] [address] CODEINE <50 Normal Cutoff <50 [facility] Comment on above: Performed By: #### D SBOP #### [facility] [address] [place] [address] DIAZEPAM <25 Normal Cutoff <25 [facility] Comment on above: Performed By: #### D SBOP #### [facility] [address] [place] [address] EDDP,U <25 Normal Cutoff <25 [facility] Comment on above: Result Comment: The performance characteristics of the Methadone Confirmation, Urine has been validated by the individual laboratory site where testing is performed. It has not been cleared or approved by the FDA. However the FDA has determined that such clearance or approval is not necessary. Our Laboratory is certified under the Clinical Laboratory Improvement Amendments of 1988 (CLIA) as qualified to perform high complexity clinical laboratory testing. Performed By: #### D SBOP #### [facility] [address] [place] [address] FENTANYL CONFIRM,U <2.5 Normal Cutoff<2.5 [facility] Comment on above: Performed By: #### D SBOP #### [facility] [address] [place] [address] HYDROCODONE <25 Normal Cutoff <25 [facility] Comment on above: Performed By: #### D SBOP #### [facility] [address] [place] [address] HYDROMORPHONE <25 Normal Cutoff <25 [facility] Comment on above: Performed By: #### D SBOP #### [facility] [address] [place] [address] LORAZEPAM <25 Normal Cutoff <25 [facility] Comment on above: Performed By: #### D SBOP #### [facility] [address] [place] [address] METHADONE,U <25 Normal Cutoff <25 [facility] Comment on above: Performed By: #### D SBOP #### [facility] [address] [place] [address] MIDAZOLAM <25 Normal Cutoff <25 [facility] Comment on above: Performed By: #### D SBOP #### [facility] [address] [place] [address] MORPHINE <50 Normal Cutoff <50 [facility] Comment on above: Performed By: #### D SBOP #### [facility] [address] [place] [address] NORDIAZEPAM <25 Normal Cutoff <25 [facility] Comment on above: Performed By: #### D SBOP #### [facility] [address] [place] [address] NORFENTANYL CONFIRM,U <2.5 Normal Cutoff<2.5 [facility] Comment on above: Result Comment: The performance characteristics of the Fentanyl Confirmation, Urine has been validated by the individual laboratory site where testing is performed. It has not been cleared or approved by the FDA. However the FDA has determined that such clearance or approval is not necessary. Our Laboratory is certified under the Clinical Laboratory Improvement Amendments of 1988 (CLIA) as qualified to perform high complexity clinical laboratory testing. Performed By: #### D SBOP #### [facility] [address] [place] [address] NORHYDROCODONE <25 Normal Cutoff <25 [facility] Comment on above: Performed By: #### D SBOP #### [facility] [address] [place] [address] NOROXYCODONE <25 Normal Cutoff <25 [facility] Comment on above: Performed By: #### D SBOP #### [facility] [address] [place] [address] O-DESMETHYLTRAMADOL, U <50 Normal Cutoff <50 [facility] Comment on above: Result Comment: The performance characteristics of the Tramadol Confirmation, Urine has been validated by the individual laboratory site where testing is performed. It has not been cleared or approved by the FDA. However the FDA has determined that such clearance or approval is not necessary. Our Laboratory is certified under the Clinical Laboratory Improvement Amendments of 1988 (CLIA) as qualified to perform high complexity clinical laboratory testing. Performed By: #### D SBOP #### [facility] [address] [place] [address] OXAZEPAM <25 Normal Cutoff <25 [facility] Comment on above: Performed By: #### D SBOP #### [facility] [address] [place] [address] OXYCODONE <25 Normal Cutoff <25 [facility] Comment on above: Performed By: #### D SBOP #### [facility] [address] [place] [address] OXYMORPHONE <25 Normal Cutoff <25 [facility] Comment on above: Result Comment: The performance characteristics of the Opiate Confirmation, Urine has been validated by the individual laboratory site where testing is performed. It has not been cleared or approved by the FDA. However the FDA has determined that such clearance or approval is not necessary. Our Laboratory is certified under the Clinical Laboratory Improvement Amendments of 1988 (CLIA) as qualified to perform high complexity clinical laboratory testing. Performed By: #### D SBOP #### [facility] [address] [place] [address] TEMAZEPAM <25 Normal Cutoff <25 [facility] Comment on above: Result Comment: The performance characteristics of the Benzodiazepine Confirmation, Urine has been validated by the individual laboratory site where testing is performed. It has not been cleared or approved by the FDA. However the FDA has determined that such clearance or approval is not necessary. Our Laboratory is certified under the Clinical Laboratory Improvement Amendments of 1988 (CLIA) as qualified to perform high complexity clinical laboratory testing. Performed By: #### D SBOP #### [facility] [address] [place] [address] TRAMADOL CONFIRM,U <50 Normal Cutoff <50 [facility] Comment on above: Performed By: #### D SBOP #### [facility] [address] [place] [address] ZOLPIDEM METABOLITE[ZCA] ,U >1000 Abnormal Cutoff <25 [facility] Comment on above: Result Comment: Zolp idem metabolite; consistent with use of drug containing zolpidem, such as Ambien. The performance characteristics of the Zolpidem Confirmation, Urine has been validated by the individual laboratory site where testing is performed. It has not been cleared or approved by the FDA. However the FDA has determined that such clearance or approval is not necessary. Our Laboratory is certified under the Clinical Laboratory Improvement Amendments of 1988 (CLIA) as qualified to perform high complexity clinical laboratory testing. Performed By: #### D SBOP #### [facility] [address] [place] [address] ZOLPIDEM,URINE <25 Normal Cutoff <25 [facility] Comment on above: Performed By: #### D SBOP #### [facility] [address] [place] [address] OPIATE/OPIOID/BENZO EXTENDED PRESCRIPTION COMPLIANCEon 07-30-2022 AMPHETAMINE SCREEN,U Negative Normal NEGATIVE [facility] Comment on above: Result Comment: CUTO FF LEVEL: 500 NG/ML Cross-reactivity has been reported with high concentrations of the following drugs: buproprion, chloroquine, chlorpromazine, ephedrine, mephentermine, fenfluramine, phentermine, phenylpropanolamine, pseudoephedrine, and propranolol. Performed By: #### D SBOP #### [facility] [address] [place] [address] BARBITURATES SCREEN,U Negative Normal NEGATIVE [facility] Comment on above: Result Comment: CUTO FF LEVEL: 200 NG/ML Performed By: #### D SBOP #### [facility] [address] [place] [address] CANNABINOIDS SCREEN,U Positive Abnormal NEGATIVE [facility] Comment on above: Result Comment: CUTO FF LEVEL: 50 NG/ML Performed By: #### D SBOP #### [facility] [address] [place] [address] COCAINE METABOLITE SCREEN,U Negative Normal NEGATIVE [facility] Comment on above: Result Comment: CUTO FF LEVEL: 150 NG/ML Performed By: #### D SBOP #### [facility] [address] [place] [address] Creatinine [Mass/Vol] 143.9 mg/dL Normal [facility] Comment on above: Result Comment: A ur ine creatinine result >= 20 mg/dL is considered valid without suspicion of dilution. Samples with results below this range will automatically reflex to specific gravity testing to verify specimen integrity. Performed By: #### D SBOP #### [facility] [address] [place] [address] DRUG SCREEN COMMENT. SEE BELOW Normal [facility] Comment on above: Result Comment: Drug screen results are presumptive and should not be used to assess compliance with prescribed medication. Definitive confirmatory drug testing has been added to this sample for any positive screen result and will be reported separately. . Toxicology screening results are reported qualitatively. The concentration must be greater than or equal to the cutoff to be reported as positive. The concentration at which the screening test can detect an individual drug or metabolite varies. The absence of expected drug(s) and/or drug metabolite(s) may indicate non-compliance, inappropriate timing of specimen collection relative to drug administration, poor drug absorption, diluted/adulterated urine, or limitations of testing. For medical purposes only; not valid for forensic use. . Interpretive questions should be directed to the laboratory medical directors. Performed By: #### D SBOP #### [facility] [address] [place] [id number] PCP SCREEN,U Negative Normal NEGATIVE [facility] Comment on above: Result Comment: CUTO FF LEVEL: 25 NG/ML Cross-reactivity has been reported with dextromethorphan. Performed By: #### D SBOP #### [facility] [address] [place] [address] OPIATE/OPIOID/BENZO EXTENDED PRESCRIPTION COMPLIANCEon 07-29-2022 Lab Specimen Source Normal [facility] Comment on above: Performed By: #### D SBOP #### [facility] [address] 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 Spring and fall. Date Reviewed: 03/12/2022 Reviewed by: Berta Zamora, ISIDORO - Fully Assessed Prescriptions as of 05/15/2022 - DULoxetine (CYMBALTA) 60 mg capsule take 1 capsules by mouth at bedtime - LORazepam (ATIVAN) 0.5 mg take 1 TO 2 tablets by mouth every 8 hours if needed for ANXIETY ATTACKS (30 DAY SUPPLY) - DULoxetine (CYMBALTA) 60 mg capsule Take 60 mg by mouth once daily. - zolpidem (AMBIEN) 10 mg tab - acetaminophen-codeine 300-60 mg per tablet Take 1 tablet by mouth every 4 hours as needed. - lamoTRIgine 150 mg tablet Take 0.5 tablets by mouth once daily. - DOXEPIN 100 MG CAP Take one(1) tablet daily at bedtime. ----- Letter Text Letter Text Normal [facility] XR MOD BARIUM SWALLOW W SPEE Sarah 05-15-2022 XR MOD BARIUM SWALLOW W SPEECH * * *Final Report* * * DATE OF EXAM: May 15 2022 2:05PM MDX 5377 - XR MOD BARIUM SWALLOW W SPEECH / PROCEDURE REASON: multiple diagnoses * * * * Physician Interpretation * * * * MODIFIED ESOPHAGRAM WITH VIDEO BY SPEECH PATHOLOGY Fluoroscopy was provided for an oropharyngeal phase swallowing examination performed by Speech Pathology. The exam is recorded for review. Please refer to the Speech Pathologist's report. 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 Patient states feeling of food sticking in throat RESULT: Intermittent cricoid bar with small Zenker's diverticulum. See speech pathology notes. IMPRESSION: See speech pathology notes. Composing Machine Operator/Tender: PSCB Transcribe Date/Time: May 16 2022 6:51A Dictated by : KRIS ANGEL MD This examination was interpreted and the report reviewed and electronically signed by: KRIS ANGEL MD on May 16 2022 6:52AM EST [id number] Normal [facility] XR MODIFIED BARIUM SWALLOW W SPEECH THERAPYon 05-15-2022 [facility] No Panel Informationon 05-06 FINAL REPORT Interpreted by: LIT WANG A, MD 05/06/22 19:45 Patient Name: SANDRA SANCHEZ STUDY: US PELVIS TRANSABDOMINAL WITH TRANSVAGINAL; 05/06/2022 1:48 pm INDICATION: post-menopausal bleeding, no pelvic pain N95.0: Postmenopa Normal [facility] Work Phone: 1,25-dihydroxyvitamin D3 [Ma ss/Vol]on 03-12-2022 1,25 Dihydroxy Vitamin Total 62.0 pg/mL 19.9 - 79.3 pg/mL [facility] FOLATE SERUMon 03-12-2022 Folate [Mass/Vol] 12.5 ng/mL >4.7 ng/mL [facility] T4 FREE/FREE THYROXon 2021 Free T4 [Mass/Vol] 1.0 ng/dL 0.9 - 1.7 ng/dL [facility] TSH BLDon 03-12-2022 TSH Qn 1.450 m[IU]/L 0.270 - 4.200 mIU/L [facility] VITAMIN B12 BLOODon 03-12-20 Cobalamin (Vitamin B12) [Mass/Vol] 574 pg/mL 232 - 1,245 pg/mL [facility] Xray Bone Density, Dexa 1 or More Siteson 02-25-2022 DXA Bone [Mass/Area] Bone density FINAL REPORT Interpreted by: TONI PHOENIX HANAUER, MD 02/25/22 15:13 Name: SANDRA SANCHEZ Date: 1970 Height: 65.0 in. Gender: Female Exam Date: 02/25/2022 Weight: 132.0 lbs. Indications: Osteopenia of b Normal [facility] Work Phone: Laboratory - Chemistry and C hemistry - challengeon 10-16-2021 Albumin BCP dye [Mass/Vol] 4.2 g/dL 3.4 - 5.0 [facility] Work Phone: ALP [Catalytic activity/Vol] 112 U/L above high threshold 33 - 110 [facility] Work Phone: ALT With P-5'-P [Catalytic activity/Vol] 11 U/L 7 - 45 [facility] Work Phone: Comment on above: Patients treated wit h Sulfasalazine may generate falsely decreased results for ALT. Anion gap [Moles/Vol] 12 mmol/L 10 - 20 [facility] Work Phone: AST With P-5'-P [Catalytic activity/Vol] 16 U/L 9 - 39 [facility] Work Phone: Bilirubin [Mass/Vol] 0.5 mg/dL 0.0 - 1.2 [facility] Work Phone: Calcium [Mass/Vol] 9.3 mg/dL 8.6 - 10.6 [facility] Work Phone: Chloride [Moles/Vol] 104 mmol/L 98 - 107 [facility] Work Phone: CO2 [Moles/Vol] 26 mmol/L 21 - 32 [facility] Work Phone: Creatinine [Mass/Vol] 0.69 mg/dL See Below [facility] Work Phone: Comment on above: Reference Range: 0.5 0 - 1.05 Glucose [Mass/Vol] 82 mg/dL 74 - 99 [facility] Work Phone: Potassium [Moles/Vol] 5.0 mmol/L 3.5 - 5.3 [facility] Work Phone: Protein [Mass/Vol] 6.9 g/dL 6.4 - 8.2 [facility] Work Phone: Sodium [Moles/Vol] 137 mmol/L 136 - 145 [facility] Work Phone: TSH Qn 1.80 m[IU]/L See Below [facility] Work Phone: Comment on above: Reference Range: 0.4 4 - 3.98 TSH testing is performed using different testing methodology at [facility] than at other [facility]. Direct result comparisons should only be made within the same method. Urea nitrogen [Mass/Vol] 12 mg/dL 6 - 23 [facility] Work Phone: Laboratory - Cytologyon 09-18 Cytology report Cyto stain.thin prep Doc (Cvx/Vag) [facility] Work Phone: Cytology report Cyto stain.thin prep Doc (Cvx/Vag) Date of Procedure: 10/16/2021 Pathologist: [facility], Cytology Date Reported: 11/01/2021 Date Received: 10/16/2021 Submitting Physician: RAMANDEEP TOM DO Attending Physician: RAMANDEEP Treviño [facility] Work Phone: Laboratory - Hematology and Cell countson 10-16-2021 Erythrocyte distribution width (RBC) [Ratio] 12.0 % See Below [facility] Work Phone: Comment on above: Reference Range: 11. 5 - 14.5 Hematocrit (Bld) [Volume fraction] 42.0 % See Below [facility] Work Phone: Comment on above: Reference Range: 36. 0 - 46.0 Hemoglobin (Bld) [Mass/Vol] 14.0 g/dL See Below [facility] Work Phone: Comment on above: Reference Range: 12. 0 - 16.0 MCHC (RBC) [Mass/Vol] 33.3 g/dL See Below [facility] Work Phone: Comment on above: Reference Range: 32. 0 - 36.0 MCV (RBC) [Entitic vol] 98 fL 80 - 100 [facility] Work Phone: Platelets (Bld) [#/Vol] 190 10*3/uL 150 - 450 [facility] Work Phone: RBC (Bld) [#/Vol] 4.30 {x10E12/L} See Below [facility] Work Phone: Comment on above: Reference Range: 4.0 0 - 5.20 WBC (Bld) [#/Vol] 5.4 10*3/uL 4.4 - 11.3 [facility] Work Phone: Laboratory - Urinalysison Yeast LM Ql (Urine sed) ABSENT [facility] Work Phone: No Panel Informationon 10-16 0.0 {/100_WBC} 0.0-0.0 [facility] Work Phone: >90 >90 [facility] Work Phone: Comment on above: CALCULATIONS OF CHALINO MATED GFR ARE PERFORMED USING THE 2020 CKD-EPI STUDY REFIT EQUATION WITHOUT THE RACE VARIABLE FOR THE IDMS-TRACEABLE CREATININE METHODS.https://jasn.asnjournals.org/content//ASN .6485558828 Not at all - 0 [facility] Work Phone: Minimal Anxiety [facility] Work Phone: 0 1 [facility] Work Phone: Comment on above: Over the last two we eks, how often have you been bothered by the following problems? Feeling nervous, anxious, or on edge: Not at all - 0Not being able to stop or control worrying: Not at all - 0Worrying too much about different things: Not at all - 0Trouble relaxing: Not at all - 0Being so restless that it's hard to sit still: Not at all - 0Becoming easily annoyed or irritable: Not at all - 0Feeling afraid as if something awful might happen: Not at all - 0 PRESENT Abnormal [facility] Work Phone: 7 1 Abnormal [facility] Work Phone: Comment on above: Interpretation of e Noe Score0-3.....Normal vaginal microbiota4-6.....Intermediate results7-10....Bacterial vaginosis Office Visit ([facility])on 10-16-2021 Follow-up visit Diagnoses/Problems Postmenopausal bleeding (627.1) (N95.0) Screening for cervical cancer (V76.2) (Z12.4) Insomnia (780.52) (G47.00) Medication management (V58.69) (Z79.899) Chronic intractable pain (338.29) (G89.29) History of vaginal discharge (V13.29) (Z87.42) Lymphedema (457.1) (I89.0) Glioblastoma (191.9) (C71.9) Vaginal discharge (623.5) (N89.8) Orders Lymphedema Physical and Occupational Therapy - Lymphatic Referral Evaluation and Treatment Evaluate AND Treat Status: Hold For - Scheduling,Retrospective Authorization Requested for: 16Oct2021 PMH: History of postmenopausal bleeding Ultrasound Pelvis Transabdominal With Transvaginal; Status:Canceled; Radiology Cancel Reason: ADMINISTRATIVE CANCEL Radiologist to Determine Optimal Study : Y What are the patient's signs and symptoms? : irregular and heavy vaginal bleeding; no menstrual cycle for a year prior PMH: History of postmenopausal bleeding, Screening for cervical cancer Gynecology Referral Evaluation and Treatment Evaluate AND Treat; also due for pap smear for screening Status: Canceled - exp AMA Intake Activity Log Entry by Bo Huerta ([email or web address]) on 2021-01-16 05:15 Status Change: Automated status change to Scheduling In Process - Letter Sent AMA Intake Activity Log Entry by Paty Shah ([email or web address]) on 2021-01-09 11:37 Status Change: To Scheduling in Process - Sending Letter in 7 days PMH: History of vaginal discharge VAGINITIS GRAM STAIN FOR BACTERIAL VAGINOSIS + YEAST; Status:Hold For - Specimen/Data Collection,Retrospective Authorization; Requested for:16Oct2021; Postmenopausal bleeding Complete Blood Count; Status:Active - Retrospective Authorization; Requested for:16Oct2021; Gynecology Referral Evaluation and Treatment Evaluate AND Treat Status: Hold For - Scheduling,Retrospective Authorization Requested for: 16Oct2021 Comprehensive Metabolic Panel; Status:Active - Retrospective Authorization; Requested for:16Oct2021; TSH WITH REFLEX TO FREE T4 IF ABNORMAL; Status:Active - Retrospective Authorization; Requested for:16Oct2021; Ultrasound Pelvis Transabdominal With Transvaginal; Status:Hold For - Scheduling,Retrospective Authorization; Requested for:16Oct2021; Radiologist to Determine Optimal Study : Y What are the patient's signs and symptoms? : post-menopausal bleeding, no pelvic pain Screening for cervical cancer PAP BEHAVIORAL THERAPY COORDINATOR, Cytology; Status:Hold For - Specimen/Data Collection,Retrospective Authorization; Requested for:16Oct2021; Last Menstrual Period (LMP): : within 1 month PAP - Site : CERVICAL Cytology Order : ThinPrep PAP, Screening, HPV CoTest - Include Genotyping Vaginal discharge Start: metroNIDAZOLE 500 MG Oral Tablet; TAKE 1 TABLET TWICE DAILY UNTIL FINISHED Patient Discussion/Summary Vaginal discharge-- cultures obtained today, patient to be notified of results. started on empiric treatment for bacterial vaginosis (Metronidazole) Post-menopausal bleeding-- blood work ordered today including CBC, CMP, TSH. US pelvis transabdominal with transvaginal ordered today. ? chemo reaction vs endometrial overgrowth vs other BEHAVIORAL THERAPY COORDINATOR referral placed today. Pap was completed today as well while doing pelvic exam.- difficult to visualize cervix, pt to see crystal syrup maker, will let her know if pap needs repeated if no transformation zone Lymphedema-- referral to lymphedema clinic placed today I encourage you to wear compression stockings. I recommend 10-15 mmHg stockings to help with swelling. I recommend VIVE compression stockings, which can be purchased on [employer]. Elevate your legs as much as possible when seated to help with swelling in legs. Pump ankles while seated to help prevent back pressure. NF-- followed/managed by specialists @ [facility]. Chronic pain-- continue taking Doxepin 100 mg + Lamictal 150 mg daily. Insomnia-- stable, continue Ambien as needed at bedtime. Controlled Substance Visit -- I have personally reviewed the [place] report for this patient. There is copy of report in electronic medical record. I have considered the risks of abuse, dependence, addiction, and diversion. I believe that it is clinically appropriate for this patient to be prescribed this medication. CSA is due, last completed 03/2019. Updated today. UDS is due, last completed 03/2019. Ordered today. Follow-up in * for *. Follow-up sooner if needed. By signing my name below, I, Zaira Velásquez, attest that this documentation has been prepared under the direction and in the presence of Dr. Ramandeep Tom. All medical record entries made by the Scribe were at my direction and personally dictated by me. I have reviewed the chart and agree that the record accurately reflects my personal performance of the history, physical exam, discussion and plan. Chief Complaint SANDRA SANCHEZ is here for a follow-up for NF-1, chronic pain, insomnia + CS visit. History of Present Illness MWV LAST COMPLETED 12/2021 Health maintenance: (more content not included)... Normal [facility] PHQ-9on 10-16-2021 PHQ-9 0-Not at all ANDRARamandeep [facility] Work Phone: PHQ-9 1-Several days ANDRARamandeep [facility] Work Phone: PHQ-9 Not difficult at all CHARLETTE reyez [facility] Work Phone: Tobacco Screening.on 022 Tobacco use status [facility] b) No [facility] Work Phone: Tobacco Screening. Adult [facility] Work Phone: No Panel Informationon 09-17 [facility] Ophthalmic Eye Examon 2021 Ophthalmic Eye Exam DOCUMENT REVIEWED BY : Parmjit Howard DOCUMENT SIGNED ELECTRONICALLY BY Parmjit Howard ON 09/07/2021 01:34:26 PM [place] [id number] [address] [place] [address] [phone] THIS DOCUMENT WAS CREATED ON: 09/07/2021 01:34:19 PM BY: Parmjit Taylor performed JLFFU-Saei-xy Exam Date: Tuesday, September 07, 2021 PATIENT NAME: SANDRA SANCHEZ DATE: 1970 AGE: 50 GENDER: Female RACE: History Chief Complaint/Reason For Visit: Est pt Neurofibromatosis f/u. Pt complains of constant tearing occasional floaters and flashes OD. Pt denies pain. HISTORY OF PRESENT ILLNESS: HPI was performed by Dr. Parmjit Howard and scribed by Elin Howard PAST MEDICAL HISTORY: OCULAR: Neurofibromatosis PROCEDURES : None. FAMILY HISTORY: Family History Last Reviewed on:09/07/2021 FATHER: Family history of malignant neoplasm of colon CURRENT MEDICATIONS: Acetaminophen-Codeine #4 300-60 MG Oral Tablet - #60 Tablet, take 1 tablet by mouth twice a day if needed for pain[Reported] Ambien 10 MG Oral Tablet - #30 Tablet, TAKE 0.75 TABLET Bedtime[Reported] , Evaluate: 13-Feb-2021 Disability Placard - #1 Each, 5 years, NO REFILLS, Evaluate Doxepin HCl - 100 MG Oral Capsule - #90 Capsule, TAKE 1 CAPSULE AT BEDTIME., 1 refill, Evaluate: 03-Jul-2021 Doxepin HCl - 50 MG Oral Capsule - #60 Capsule, take 1 capsule by mouth at bedtime for 1 week then 2 capsules by ... (REFER TO PRESCRIPTION NOTES).[Reported] Koselugo 25 MG Oral Capsule - #120 Capsule, [Reported] lamoTRIgine 150 MG Oral Tablet - #90 Tablet, TAKE 1 TABLET DAILY., 1 refill, Evaluate: 03-Jul-2021 ALLERGIES: No Known Drug Allergies REVIEW OF SYSTEMS: GENERAL:Overall healthy other than NF1 ENT:sseing floater All other Review Of Systems negative Exam ORIENTATION, MOOD AND AFFECT: Alert AND oriented x3 RIGHT EYE LEFT EYE UNCORRECTED VA N/A N/A CORRECTED VA 20/20 -2 20/20 PRESSURE METHOD: Applanation Applanation PRESSURES: 19 20 DATE-TIME: 09/07/2021 1:15:27 PM 09/07/2021 1:15:27 FLASH DEVELOPER: collette murdock CONFRONTATION VF Full to count fingers Full to count fingers EXTERNAL EYE EXAM: LID: Good Position Good Position PUPIL: PERRL/no APD PERRL/no APD ADNEXA: Normal Normal MUSCLE BALANCE: Ortho OCULAR MOTILITY: Full ANTERIOR SEGMENT EXAM: TEARFILM: Good Good CONJUNCTIVA: White and quiet White and quiet CORNEA: Clear Clear ANTERIOR CHAMBER: Deep and quiet Deep and quiet IRIS: Round and reactive Round and reactive LENS: Clear Clear ANTERIOR VITREOUS: Clear Clear FUNDUS EXAM: DILATION and NUMBING DROPS: Tray 2.5% AND Mydriacyl 1% OU 09/07/2021 01:13:36 PM CUP TO DISC: .55 .55 OPTIC DISC: [place] and sharp [place] and sharp VITREOUS: PVD Clear MACULA: Normal reflex Normal reflex VESSELS: Normal Normal PERIPHERY: No tears, breaks, or holes No tears, breaks, or holes Impression 1 Q85.00 Neurofibromatosis-Stable 2 H43.811 Pvd (posterior vitreous detachment), right eye-Worsening Plan TODAY (OU) - OCT Macula By:Parmjit Howard NF1 with systemic debilitation Pt was on a new medication Kolugo, which is a selumitinib, a tyrosine kinase inhibitor. Kinase inhibitors have inherent toxicity, but fortunately today the retina is healthy and normal. Her optic nerves are slightly enlarged, but IOP is normal, likely congenital. Now she is off Kolugo now Hi quality OCT scans obtained signal good OCT OD - Normal Foveal Contour, No Edema, IS/OS Junction Normal OCT OS - Normal Foveal Contour, No Edema, IS/OS Junction Normal additional commnents: Hi quality OCT scans obtained signal good OCT OD - Normal Foveal Contour, No Edema, IS/OS Junction Normal OCT OS - Normal Foveal Contour, No Edema, IS/OS Junction Normal additional commnents: created by:Parmjit Howard FOLLOWUP SCHEDULED: Hi quality OCT scans obtained signal good OCT OD - Normal Foveal Contour, No Edema, IS/OS Junction Normal OCT OS - Normal Foveal Contour, No Edema, IS/OS Junction Normal additional commnents: skurupx2 ___ Parmjit Howard DOCUMENT CREATE DATE: 09/07/2021 01:34:19 PM The Following Users Updated This Patient Encounter: Vanita Howard Received for:Parmjit Howard MD Sep 07 2021 1:34PM Eastern Standard Time Normal [facility] Ophthalmic Eye Examon 2021 Ophthalmic Eye Exam DOCUMENT REVIEWED BY : Parmjit Howard DOCUMENT SIGNED ELECTRONICALLY BY Parmjit Howard ON 06/29/2021 02:36:04 PM [id number] [address] [place], [address] THIS DOCUMENT WAS CREATED ON: 06/29/2021 02:35:57 PM BY: Parmjit Ramirez performed [id number]-[id number] Exam Date: Tuesday, June 29, 2021 PATIENT NAME: SANDRA SANCHEZ DATE: 1970 AGE: 50 GENDER: Female RACE: White PRIMARY CARE PHYSICIAN: Ramandeep Tom History Chief Complaint/Reason For Visit: 50 yom pt states she got a new floater od onset a montha go pt states every once in a while she will see a silver streak instead of the floater. pt denies pain ou HISTORY OF PRESENT ILLNESS: HPI was performed by Dr. Parmjit Howard and scribed by Elin Howard PAST MEDICAL HISTORY: OCULAR: Neurofibromatosis PROCEDURES : None. FAMILY HISTORY: Family History Last Reviewed on:06/29/2021 FATHER: Family history of malignant neoplasm of colon CURRENT MEDICATIONS: Acetaminophen-Codeine #4 300-60 MG Oral Tablet - #60 Tablet, take 1 tablet by mouth twice a day if needed for pain[Reported] Ambien 10 MG Oral Tablet - #30 Tablet, TAKE 0.75 TABLET Bedtime[Reported] , Evaluate: 13-Feb-2021 Disability Plack[place]berlyn - #1 Each, 5 years, NO REFILLS, Evaluate Doxepin HCl - 100 MG Oral Capsule - #90 Capsule, TAKE 1 CAPSULE AT BEDTIME., 1 refill, Evaluate: 03-Jul-2021 Doxepin HCl - 50 MG Oral Capsule - #60 Capsule, take 1 capsule by mouth at bedtime for 1 week then 2 capsules by ... (REFER TO PRESCRIPTION NOTES).[Reported] Koselugo 25 MG Oral Capsule - #120 Capsule, [Reported] lamoTRIgine 150 MG Oral Tablet - #90 Tablet, TAKE 1 TABLET DAILY., 1 refill, Evaluate: 03-Jul-2021 ALLERGIES: No Known Drug Allergies REVIEW OF SYSTEMS: GENERAL:Overall healthy other than NF1 ENT:sseing floater All other Review Of Systems negative Exam ORIENTATION, MOOD AND AFFECT: Alert AND oriented x3 RIGHT EYE LEFT EYE UNCORRECTED VA N/A N/A CORRECTED VA 20/20-1 20/20-2 PRESSURE METHOD: Tonopen Tonopen PRESSURES: 21 24 DATE-TIME: 06/29/2021 1:46:12 PM 06/29/2021 1:46:12 FLASH DEVELOPER: damon jose CONFRONTATION VF Full to count fingers Full to count fingers EXTERNAL EYE EXAM: LID: Good Position Good Position PUPIL: PERRL/no APD PERRL/no APD ADNEXA: Normal Normal MUSCLE BALANCE: Ortho OCULAR MOTILITY: Full ANTERIOR SEGMENT EXAM: TEARFILM: Good Good CONJUNCTIVA: White and quiet White and quiet CORNEA: Clear Clear ANTERIOR CHAMBER: Deep and quiet Deep and quiet IRIS: Round and reactive Round and reactive LENS: Clear Clear ANTERIOR VITREOUS: Clear Clear FUNDUS EXAM: DILATION and NUMBING DROPS: Tray 2.5% AND Mydriacyl 1% OU 06/29/2021 01:46:21 PM CUP TO DISC: .55 .55 OPTIC DISC: [place] and sharp [place] and sharp VITREOUS: PVD Clear MACULA: Normal reflex Normal reflex VESSELS: Normal Normal PERIPHERY: No tears, breaks, or holes No tears, breaks, or holes Impression 1 Q85.00 Neurofibromatosis-Stable 2 H43.811 Pvd (posterior vitreous detachment), right eye-New Discussion 2m created by:Parmjit Howard Signs/Symptoms of RD discussed. Pt instructed to call sofya if notices increased floaters, decreased VA, or peripheral vision changes. created by:Parmjit Howard Plan TODAY (OU) - OCT Macula By:Parmjit Howard NF1 with systemic debilitation Pt is going to be on a new medication Kolugo, which is a selumitinib, a tyrosine kinase inhibitor. Kinase inhibitors have inherent toxicity, but fortunately today the retina is healthy and normal. Her optic nerves are slightly enlarged, but IOP is normal, likely congenital. Hi quality OCT scans obtained signal good OCT OD - Normal Foveal Contour, No Edema, IS/OS Junction Normal OCT OS - Normal Foveal Contour, No Edema, IS/OS Junction Normal additional commnents: created by:Parmjit Howard FOLLOWUP SCHEDULED: Hi quality OCT scans obtained signal good OCT OD - Normal Foveal Contour, No Edema, IS/OS Junction Normal OCT OS - Normal Foveal Contour, No Edema, IS/OS Junction Normal additional commnents: skurupx2 ___ Parmjit Howard DOCUMENT CREATE DATE: 06/29/2021 02:35:57 PM The Following Users Updated This Patient Encounter: Benedict Howard Received for:Parmjit Howard MD Jun 29 2021 2:36PM Eastern Standard Time Normal [employer] Blood Pressure Cuff Sizeon 0 06-13-2021 Blood Pressure Cuff Size Adult -[facility] Work Phone: No Panel Informationon 06-13 Not at all - 0 [facility] Work Phone: Negative [facility] Work Phone: 0 1 [facility] Work Phone: Comment on above: Q1: 0, Q2: 0, Office Visit (Family [facility] holt)on 06-13-2021 Follow-up visit Diagnoses/Problems Medication side effect (995.20) (T88.7XXA) Patient Discussion/Summary Reduce the medication by half. continue compression sock for the left leg. Telephone Visit in [address] Menchaca Provider Impressions Reviewed med in [employer] ; guidelines for dose reduction reviewed . Reviewed last neurology note. Recommend reducing dose slightly to possibly improve side effects . I let pt know the echo looked normal ; and MRI showed nothing new in area of her abdomen. 1 Encouraged her to follow up with Neurology.. Planning transfer of care to new Neurology at [facility].1 1 Amended By: Michelle Menchaca; Jun 17 2021 5:45 PM ESTChief Complaint Chief Complaint: SANDRA SANCHEZ is here with a chief complaint of Swelling in legs, hand and feet . has been having swelling for a few months, was given prednisone from the urgent care which helped but as soon as she d/c she puffed back up. she also has a red rash on her chest and face. She thinks these are side effects from Koselugo and her oncologist just stopped practicing. her goal today is to discuss the swelling and where she should go from here. History of Present Illness Pt of Dr. Tom, Tomas Rosado (Front Staff) Has hx of NF1 , multiple Plexiform neurofibromas . lost to followup with Ne of neurology and seeking results of MRI and Guidance regarding the treatment for the neurofibromas Relates that her neurologist left ; she has not established with a new one yet. Has plans to toon . States the medication Koselugo, has helped reduce pain from the tumors. she feels unable to tolerate the skin side effects , vascular side effects. Skin - erythematous papular eruption over torso , some on face . Vascular - worseneing of known venous insufficiency ; new persistent. left leg edema ,pitting. treatment with steroids rxed by neuro did not make a difference. 'Scores and Scales' PHQ-9 Printed in Appendix #1 below. REYMUNDO-7 [id number] REYMUNDO-7 Total Score0 Feeling nervous, anxious or on edgeNot at all - 0 Not being able to stop or control worryingNot at all - 0 Worrying too much about different thingsNot at all - 0 Trouble relaxingNot at all - 0 Being so restless that it's hard to sit stillNot at all - 0 Becoming easily annoyed or irritableNot at all - 0 Feeling afraid as if something awful might happenNot at all - 0 Active Problems Anxiety (300.00) (F41.9) Body mass index (BMI) of 22.0 to 22.9 in adult (V85.1) (Z68.22) Chronic intractable pain (338.29) (G89.29) Colon cancer screening (V76.51) (Z12.11) Dysphagia (787.20) (R13.10) Encounter for hepatitis C screening test for low risk patient (V73.89) (Z11.59) Encounter for immunization (V03.89) (Z23) Encounter for screening mammogram for breast cancer (V76.12) (Z12.31) Idiopathic peripheral neuropathy (356.9) (G60.9) Insomnia (780.52) (G47.00) Limb swelling (729.81) (M79.89) Medicare annual wellness visit, subsequent (V70.0) (Z00.00) Medication management (V58.69) (Z79.899) Neurofibromatosis (237.70) (Q85.00) Post-menopausal bleeding (627.1) (N95.0) Screening for cervical cancer (V76.2) (Z12.4) Special screening for other conditions (V82.89) (Z13.89) Torticollis (723.5) (M43.6) Family History Family history of malignant neoplasm of colon (V16.0) (Z80.0) Allergies No Known Drug Allergies Recorded By: Ramandeep Tom; 09/23/2018 3:41:03 PM Current Meds Medication NameInstructionReason Disability Placard5 yearsChronic intractable pain Doxepin HCl - 100 MG Oral CapsuleTAKE 1 CAPSULE AT BEDTIME.Chronic intractable pain lamoTRIgine 150 MG Oral TabletTAKE 1 TABLET DAILY.Chronic intractable pain Acetaminophen-Codeine #4 300-60 MG Oral Tablettake 1 tablet by mouth twice a day if needed for pain Ambien 10 MG Oral TabletTAKE 0.75 TABLET Bedtime Doxepin HCl - 50 MG Oral Capsuletake 1 capsule by mouth at bedtime for 1 week then 2 capsules by ... (REFER TO PRESCRIPTION NOTES). Koselugo 25 MG Oral Capsule Vitals Vital Signs Recorded: 13Jun2021 05:01PM [id number] F, Temporal Heart Rate89 Ddnjvlta732, RUE, Sitting Yvbbiiiok60, RUE, Sitting Blood Pressure Cuff SizeAdult Height5 ft 3 in Butusa065 lb 2 oz BMI Gsqvsxxmwi66.42 kg/m2 BSA Calculated1.71 O2 Soxhnrtybo82 Physical Exam Gen: alert, no distress, appears upset . anxious appears older than stated age . Extr: dusky appearance to both feet ; left lower leg edema , pitting, 2+ . Pulses 1 + bilat . No lesions, cords, warmth. both feet are cool to the touch . Torso : maulopapular eruption - back, chest neck , chin, upper lip Results/Data PHQ-2 Adult Depression [id number] 05:77DF1Pqicuqangh, Provider Test NameResultFlagReference PHQ-2 Adult Depression Score0 Q1: 0, Q2: 0, PHQ-2 Adult Depression ScreeningNegative 1. Little interest or pleasure in doing thingsNot at all - 0 2. Feeling down, depressed, or hopelessNot at all - 0 Signatures Electronically signed by : Michelle Menchaca MD; Jun 17 (more content not included)... [facility] Venous Duplex Ultra sound for DVTon 04-13-2021 [facility] Venous Duplex Ultrasound for DVT Please click on the link to view the study images Normal [facility]-Vascular Surgery-LAB [facility] Work Phone: Ophthalmic Eye Examon 2020 Ophthalmic Eye Exam DOCUMENT REVIEWED BY : Parmjit Howard DOCUMENT SIGNED ELECTRONICALLY BY Parmjit Howard ON 03/30/2021 03:56:09 PM [id number] [place], [address] [phone] THIS DOCUMENT WAS CREATED ON: 03/30/2021 02:52:01 PM BY: Parmjit cotton [id number]-[id number] Exam Date: Tuesday, March 30, 2021 PATIENT NAME: SANDRA SANCHEZ DATE: 1970 AGE: 50 GENDER: Female RACE: White PRIMARY CARE PHYSICIAN: Ramandeep Tom History Chief Complaint/Reason For Visit: 50yof 6m f/up. pt states vision is unchanged since last exam ou, denies pain ou,denies flashes ou, denies floaters ou. HISTORY OF PRESENT ILLNESS: HPI was performed by Dr. Parmjit Howard and scribed by Elin Howard PAST MEDICAL HISTORY: OCULAR: Neurofibromatosis PROCEDURES : None. FAMILY HISTORY: Family History Last Reviewed on:03/30/2021 FATHER: Family history of malignant neoplasm of colon CURRENT MEDICATIONS: Acetaminophen-Codeine #4 300-60 MG Oral Tablet - #60 Tablet, take 1 tablet by mouth twice a day if needed for pain[Reported] Ambien 10 MG Oral Tablet - #30 Tablet, TAKE 0.75 TABLET Bedtime[Reported] , Evaluate: 13-Feb-2021 Disability Placard - #1 Each, 5 years, NO REFILLS, Evaluate Doxepin HCl - 100 MG Oral Capsule - #90 Capsule, TAKE 1 CAPSULE AT BEDTIME., 1 refill, Evaluate: 03-Jul-2021 Doxepin HCl - 50 MG Oral Capsule - #60 Capsule, take 1 capsule by mouth at bedtime for 1 week then 2 capsules by ... (REFER TO PRESCRIPTION NOTES).[Reported] Koselugo 25 MG Oral Capsule - #120 Capsule, [Reported] lamoTRIgine 150 MG Oral Tablet - #90 Tablet, TAKE 1 TABLET DAILY., 1 refill, Evaluate: 03-Jul-2021 methylPREDNISolone 4 MG Oral Tablet Therapy Pack - #21 Tablet Therapy Pack, use as directed FOLLOW DIRECTIONS ON BACK OF FOIL PACK[Reported] ALLERGIES: No Known Drug Allergies REVIEW OF SYSTEMS: GENERAL:Overall healthy other than NF1 All other Review Of Systems negative Exam ORIENTATION, MOOD AND AFFECT: Alert AND oriented x3 RIGHT EYE LEFT EYE UNCORRECTED VA N/A N/A CORRECTED VA 20/20 20/20 PRESSURE METHOD: Applanation Applanation PRESSURES: 14 14 DATE-TIME: 03/30/2021 2:14:56 PM 03/30/2021 2:14:56 FLASH DEVELOPER: lwashxx8 lwashxx8 CONFRONTATION VF Full to count fingers Full to count fingers EXTERNAL EYE EXAM: LID: Good Position Good Position PUPIL: PERRL/no APD PERRL/no APD ADNEXA: Normal Normal MUSCLE BALANCE: Ortho OCULAR MOTILITY: Full ANTERIOR SEGMENT EXAM: TEARFILM: Good Good CONJUNCTIVA: White and quiet White and quiet CORNEA: Clear Clear ANTERIOR CHAMBER: Deep and quiet Deep and quiet IRIS: Round and reactive Round and reactive LENS: Clear Clear ANTERIOR VITREOUS: Clear Clear FUNDUS EXAM: DILATION and NUMBING DROPS: Tray 2.5% AND Mydriacyl 1% OU 03/30/2021 02:09:44 PM CUP TO DISC: .55 .55 OPTIC DISC: [place] and sharp [place] and sharp VITREOUS: Clear Clear MACULA: Normal reflex Normal reflex VESSELS: Normal Normal PERIPHERY: No tears, breaks, or holes No tears, breaks, or holes Impression 1 Q85.00 Neurofibromatosis-Stable Discussion on OCT autofluorescence no evidence of retinal toxicity created by:Parmjit Howard Plan No evidence of retinal toxicity Autofluorescence shws no new abnormalities monitor OS closely TODAY (OU) - OCT Macula By:Parmjit Howard TODAY (OU) - OCT Macula By:Parmjit Howard NF1 with systemic debilitation Pt is going to be on a new medication Kolugo, which is a selumitinib, a tyrosine kinase inhibitor. Kinase inhibitors have inherent toxicity, but fortunately today the retina is healthy and normal. Her optic nerves are slightly enlarged, but IOP is normal, likely congenital. ___ Parmjit Howard DOCUMENT CREATE DATE: 03/30/2021 02:52:01 PM The Following Users Updated This Patient Encounter: Brenda Howard Received for:Parmjit Howard MD Mar 30 2021 3:56PM Eastern Standard Time Normal [employer] Creatine Kinase, Levelon CK [Catalytic activity/Vol] 42 U/L 0 - 215 [facility] Work Phone: Hepatitis C Antibody Teston 01-04-2021 Hepatitis C Antibody Test Non-Reactive See Below [facility] Work Phone: Comment on above: SOURCE: Reference Ra nge: NONREACTIVE Results from patients taking biotin supplements or receiving high-dose biotin therapy should be interpreted with caution due to possible interference with this test. Providers may contact their local laboratory for further information. Laboratory - Chemistry and C hemistry - challengeon 01-04-2021 Albumin BCP dye [Mass/Vol] 4.5 g/dL 3.4 - 5.0 [facility] Work Phone: ALP [Catalytic activity/Vol] 115 U/L above high threshold 33 - 110 [facility] Work Phone: ALT With P-5'-P [Catalytic activity/Vol] 14 U/L 7 - 45 [facility] Work Phone: Comment on above: Patients treated wit h Sulfasalazine may generate falsely decreased results for ALT. Anion gap [Moles/Vol] 11 mmol/L 10 - 20 [facility] Work Phone: AST With P-5'-P [Catalytic activity/Vol] 17 U/L 9 - 39 [facility] Work Phone: Bilirubin [Mass/Vol] 0.7 mg/dL 0.0 - 1.2 [facility] Work Phone: Calcium [Mass/Vol] 10.2 mg/dL 8.6 - 10.6 [facility] Work Phone: Chloride [Moles/Vol] 101 mmol/L 98 - 107 [facility] Work Phone: CO2 [Moles/Vol] 30 mmol/L 21 - 32 [facility] Work Phone: Creatinine [Mass/Vol] 0.69 mg/dL See Below [facility] Work Phone: Comment on above: Reference Range: 0.5 0 - 1.05 Glucose [Mass/Vol] 104 mg/dL above high threshold 74 - 99 [facility] Work Phone: Potassium [Moles/Vol] 4.9 mmol/L 3.5 - 5.3 [facility] Work Phone: Protein [Mass/Vol] 7.3 g/dL 6.4 - 8.2 [facility] Work Phone: Sodium [Moles/Vol] 137 mmol/L 136 - 145 [facility] Work Phone: Urea nitrogen [Mass/Vol] 10 mg/dL 6 - 23 [facility] Work Phone: Laboratory - Hematology and Cell countson 01-04-2021 Erythrocyte distribution width (RBC) [Ratio] 12.1 % See Below [facility] Work Phone: Comment on above: Reference Range: 11. 5 - 14.5 Hematocrit (Bld) [Volume fraction] 44.5 % See Below [facility] Work Phone: Comment on above: Reference Range: 36. 0 - 46.0 Hemoglobin (Bld) [Mass/Vol] 15.1 g/dL See Below [facility] Work Phone: Comment on above: Reference Range: 12. 0 - 16.0 MCHC (RBC) [Mass/Vol] 33.9 g/dL See Below [facility] Work Phone: Comment on above: Reference Range: 32. 0 - 36.0 MCV (RBC) [Entitic vol] 97 fL 80 - 100 [facility] Work Phone: Platelets (Bld) [#/Vol] 203 10*3/uL 150 - 450 [facility] Work Phone: RBC (Bld) [#/Vol] 4.60 {x10E12/L} See Below [facility] Work Phone: Comment on above: Reference Range: 4.0 0 - 5.20 WBC (Bld) [#/Vol] 5.3 10*3/uL 4.4 - 11.3 [facility] Work Phone: Lipid Panelon 01-04-2021 Cholesterol [Mass/Vol] 205 mg/dL above high threshold 0 - 199 [facility] Work Phone: Comment on above: . AGE DESIRABLE BORD ALICIA HIGH HIGH 0-19 Y 0 - 169 170 - 199 >/= 200 20-24 Y 0 - 189 190 - 224 >/= 225 >24 Y 0 - 199 200 - 239 >/= 240 All ranges are based on fasting samples. Specific therapeutic targets will vary based on patient-specific cardiac risk.. Pediatric guidelines reference:Pediatrics 2011, 128(S5). Adult guidelines reference: NCEP ATPIII Guidelines, PASQUALE 2001, 258:2486-97. Venipuncture immediately after or during the administration of Metamizole may lead to falsely low results. Testing should be performed immediately prior to Metamizole dosing. Cholesterol in HDL [Mass/Vol] 73.3 mg/dL [facility] Work Phone: Comment on above: . AGE VERY LOW LOW N ORMAL HIGH 0-19 Y < 35 < 40 40-45 ---- 20- 24 Y ---- < 40 >45 ---- >24 Y ---- < 40 40-60 >60. Cholesterol in LDL [Mass/Vol] 114 mg/dL above high threshold 0 - 99 [facility] Work Phone: Comment on above: . NEAR BORD AGE AKSHAT RABLE OPTIMAL HIGH HIGH VERY HIGH 0-19 Y 0 - 109 --- 110-129 >/= 130 ---- 20-24 Y 0 - 119 --- 120-159 >/= 160 ---- >24 Y 0 - 99 100-129 130-159 160-189 >/=190. Cholesterol.total/Ch olesterol in HDL [Mass ratio] 2.8 {ratio} [facility] Work Phone: Comment on above: REF VALUESDESIRABLE < 3.4HIGH RISK > 5.0 Triglyceride [Mass/Vol] 89 mg/dL 0 - 149 [facility] Work Phone: Comment on above: . AGE DESIRABLE BORD ALICIA HIGH HIGH VERY HIGH 0 D-90 D 19 - 174 ---- ---- ----91 D- 9 Y 0 - 74 75 - 99 >/= 100 ---- 10-19 Y 0 - 89 90 - 129 >/= 130 ---- 20-24 Y 0 - 114 115 - 149 >/= 150 ---- >24 Y 0 - 149 150 - 199 200- 499 >/= 500. Venipuncture immediately after or during the administration of Metamizole may lead to falsely low results. Testing should be performed immediately prior to Metamizole dosing. Lipid Panel 18 mg/dL 0 - 40 [facility] Work Phone: Medicare Annual Wellness Vis dominick 01-04-2021 Medicare Annual Wellness Visit *Chief Complaint f/u NF-1 + MWV History of Present Illness The patient is being seen for the subsequent annual wellness visit. Past Medical, Surgical and Family History: reviewed and updated in chart. Medications and Supplements: Medications and supplements, including calcium and vitamins reviewed and updated in chart. No, the patient is not using opioids. Patient Self Assessment of Health Status: fair. Tobacco use: Non-User Alcohol use: Non-User Illicit drug use: Non-User Current diet: well balanced diet, does consume adequate fluids and does consume caffeine. Exercise Frequency: infrequently. Depression/Suicide Screening: . During the past 2 weeks, the patient has not felt down, depressed or hopeless. During the past 2 weeks, the patient has not felt little interest or pleasure in doing things. See phq9 Hearing Impairment: none. Cognitive Impairment: No cognitive impairment observed. Bathing: performs independently. Dressing: performs independently. Walking: performs independently. Managing Finances: performs independently. Shopping: performs independently. Housework / Basic Home Maintenance: performs independently. Falls Risk Screening:. SANDRA has not fallen in the last 6 months. Home safety risk factors: none. Health maintenance: TDAP-- none found Influenza-- Due Fall 2020 Shingrix-- none found (history of [place] outbreak) Pneumonia series-- N/A Mammo-- 11/2019 PAP-- none found Cscope(45-75)-- none found (ORDERED 05/2020) (father with hx of colon cancer) Last Dexa (65+)-- N/A Anxiety/Depression-- 09/2019 PHQ-9: 1 REYMUNDO-7: 0 Hepatitis C Screen-- none found Lipid Panel-- ratio: none found CT cardiac score-- none found *Due for: TDAP, SHINGRIX, MAMMO, PAP, C SCOPE, HEP C SCREEN, LABS Patient presents today for health management of NF-1 + MWV. ABN obtained AND brochure given. She comes in today with complaint of abnormal menses. States she went off BCP and has not had period for almost a year until recently. No periods are irregular and heavy. She is unsure when they are coming. Patient with history of neurofibromatosis and chronic pain. She is presently on Doxepin 100 mg + Lamictal 150 mg daily. Follows with heme-onc and derm yearly. States she has plans to start Koselugo which is a new medication for NF, waiting for approval from insurance. Also using medical marijuana but requiring small dose Ambien for sleep now. 01/03/2020 HEME-ONC F/U: NF-1, recommended derm assessment yearly, BP monitoring, annual mammography and consideration of breast MRI until age 50. Multiple plexiform neurofibromas, recommended yearly follow-up with neuro-oncology, consider yearly MR imaging of known plexiform tumors. Reimage if there is new pain in the region of known neurofibroma, consider also nerve ultrasound and PET to detect for malignant transformation. 12/21/2020 MRI Pelvis + Femur: Neurofibromatosis with innumerable neurofibromas throughout the lumbosacral plexus and along the course of the sciatic nerves. No evidence of malignant transformation by MRI. Continued surveillance is recommended. 10/2020 EMG: Moderately abnormal but indeterminate study. Absent sensory potentials in LE are consistent with a peripheral neuropathy. However, there is a clear asymmetry of distal motor amplitudes, significantly lower on the right side than left consistent with a superimposed process that might include a disorder of the right sciatic nerve, lumbosacral plexus, or L5/S1 nerve roots but which cannot be determined for certain because of the underlying peripheral neuropathy. 09/2020 ECHO: LV systolic function is normal with EF 60%. Mean global longitudinal strain is -15.5% No prior studies for comparison. No prior colonoscopy in our records (father with hx of colon cancer). States she needs scope, but waiting to figure above issues first. No melena, hematochezia, constipation, diarrhea, bloating, change in bowel habits. No prior pap smears in our records 11/2019 mammogram normal, due for repeat. Review of Systems Constitutional: not feeling poorly. Genitourinary: unexplained vaginal bleeding, but as noted in HPI. All other systems have been reviewed and are negative for complaint. 'Scores and Scales' PHQ-9 [id number] 12:00AM PHQ-9 Total Score (Please update problem list based on total score) 1. Little interest or pleasure in doing things 2. Feeling down, depressed, or hopeless 3. Trouble falling or staying asleep, or sleeping too much 4. Feeling tired or having little energy 5. Poor appetite or overeating 6. Feeling bad about yourself or you are a failure or that you have let yourself or your family down 7. Trouble concentrating on things, such as reading the newspaper or watch television 8. Moving or speaking so slowly that other people could have noticed. Or the opposite-being so fidgety or restless that you have been moving around a lot more than usual 9. Thoughts that you would be better (more content not included)... Normal [facility] No Panel Informationon 01-04 Not at all - 0 [facility] Work Phone: Minimal Anxiety [facility] Work Phone: 0 1 [facility] Work Phone: Comment on above: Over the last two we eks, how often have you been bothered by the following problems? Feeling nervous, anxious, or on edge: Not at all - 0Not being able to stop or control worrying: Not at all - 0Worrying too much about different things: Not at all - 0Trouble relaxing: Not at all - 0Being so restless that it's hard to sit still: Not at all - 0Becoming easily annoyed or irritable: Not at all - 0Feeling afraid as if something awful might happen: Not at all - 0 More than half the d ays - 2 [facility] Work Phone: Minimal Depression [facility] Work Phone: No response [facility] Work Phone: Negative [facility] Work Phone: 0.0 {/100_WBC} 0.0-0.0 [facility] Work Phone: >60 >60 [facility] Work Phone: Comment on above: CALCULATIONS OF CHALINO MATED GFR ARE PERFORMED USING THE MDRD STUDY EQUATION FOR THE IDMS-TRACEABLE CREATININE METHODS. CLIN CHEM 2007;53:766-72 Tobacco Screening.on Last menstrual period start date 04Dec2020 [facility] Work Phone: Tobacco use status [facility] b) No [facility] Work Phone: Tobacco Screening. Adult [facility] Work Phone: Vitamin E, Serumon Alpha tocopherol [Mass/Vol] 13.8 mg/L 7.0-25.1 [facility] Work Phone: Gamma tocopherol [Mass/Vol] 0.8 mg/L 0.5-5.5 [facility] Work Phone: Comment on above: Reference intervals for alpha and gamma-tocopherol determined from[place] Health and Nutrition Examination Survey, 4133-2207.Individuals with alpha-tocopherol levels less than 5.0 mg/L areconsidered vitamin E deficient.Test(s) 296167-Ypuclwj E(Alpha Tocopherol); 762980-Oygkrgk E(Gamma Tocopherol)was developed and its performance characteristics determinedby [employer]. It has not been cleared or approved by the Foodand Drug Administration. MRI Femur w/wo Contraston MRI Femur w/wo Contrast Normal [facility] Work Phone: MRI Pelvis w/wo Contraston 0 12-21-2020 MRA Pelvis vessels WO and W contrast IV Normal [facility] Work Phone: Echocardiogramon 09-19-2020 Echocardiography [facility] [place] [id number] [phone], TRANSTHORACIC ECHOCARDIOGRAM REPORT Patient Name: SANDRA SANCHEZ Reading Physician: [id number] Madi Davalos MD Study Date: 09/19/2020 Referring Physician: [id number] MICHAEL STANTON MRN/PID: [id number] PCP: Accession/Order#: [id number] Department Location: [facility] Echo Lab Date of : 1970 Fellow: Gender: F Nurse: Admit Date: [place]: Ronal Keller RDCS Admission Status: Outpatient Additional Staff: Height: 167.64 cm CC Report to: Weight: 56.70 kg Study Type: Echocardiogram BSA: 1.64 m2 Blood Pressure: 107 /93 mmHg Diagnosis/ICD: Z51.11-Encounter for antineoplastic chemotherapy Indication: Procedure/CPT: Echo Complete w Full Doppler-64714; Myocardial Strain Imaging-82263 Study Detail: The following Echo studies were performed: 2D, M-Mode, Doppler and color flow. PHYSICIAN INTERPRETATION: Left Ventricle: The left ventricular systolic function is normal, with an estimated ejection fraction of 60%. There are no regional wall motion abnormalities. The left ventricular cavity size is normal. Left ventricular diastolic filling was indeterminate. Left Atrium: The left atrium is normal in size. Right Ventricle: The right ventricle is normal in size. There is normal right ventricular global systolic function. Right Atrium: The right atrium is normal in size. Aortic Valve: The aortic valve is probably trileaflet. There is no evidence of aortic valve regurgitation. The peak instantaneous gradient of the aortic valve is 5.4 mmHg. The mean gradient of the aortic valve is 3.0 mmHg. Mitral Valve: The mitral valve is normal in structure. There is trace mitral valve regurgitation. Tricuspid Valve: The tricuspid valve is structurally normal. No evidence of tricuspid regurgitation. Pulmonic Valve: The pulmonic valve is not well visualized. There is no indication of pulmonic valve regurgitation. Pericardium: There is no pericardial effusion noted. Aorta: The aortic root is normal. Systemic Veins: The inferior vena cava appears to be of normal size. There is IVC inspiratory collapse greater than 50%. CONCLUSIONS: 1. The left ventricular systolic function is normal with a 60% estimated ejection fraction. 2. Mean global longitudinal strain is -15.5%. 3. No prior studies for comparison. QUANTITATIVE DATA SUMMARY: 2D MEASUREMENTS: Normal Ranges: Ao Root d: 2.70 cm (2.0-3.7cm) LAs: 2.60 cm (2.7-4.0cm) IVSd: 0.72 cm (0.6-1.1cm) LVPWd: 0.90 cm (0.6-1.1cm) LVIDd: 4.00 cm (3.9-5.9cm) LVIDs: 2.88 cm LV Mass Index: 58.0 g/m2 LV % FS 28.0 % LA VOLUME: Normal Ranges: LA Vol A4C: 18.2 ml (22+/-6mL/m2) LA Vol A2C: 16.4 ml LA Vol BP: 17.7 ml LA Vol Index A4C: 11.1ml/m2 LA Vol Index A2C: 10.0 ml/m2 LA Vol Index BP: 10.8 ml/m2 LA Area A4C: 9.5 cm2 LA Area A2C: 8.8 cm2 LA Major [place] A4C: 4.2 cm LA [place] A2C: 4.1 cm LA Volume Index: 11.0 ml/m2 LA Vol A4C: 18.0 ml LA Vol A2C: 16.1 ml M-MODE MEASUREMENTS: Normal Ranges: AoV Exc: 1.80 cm (1.5-2.5cm) AORTA MEASUREMENTS: Normal Ranges: AoV Exc: 1.80 cm (1.5-2.5cm) LV SYSTOLIC FUNCTION BY 2D PLANIMETRY (MOD): Normal Ranges: EF-A4C View: 59.9 % (>55%) EF-A2C View: 64.8 % EF-Biplane: 62.2 % LV DIASTOLIC FUNCTION: Normal Ranges: MV Peak E: 0.54 m/s (0.7-1.2 m/s) MV Peak A: 0.55 m/s (0.42-0.7 m/s) E/A Ratio: 0.98 (1.0-2.2) MV e' 0.09 m/s (>8.0) MV lateral e' 0.09 m/s MV medial e' 0.09 m/s E/e' Ratio: 5.97 (<8.0) MITRAL VALVE: Normal Ranges: MV Vmax: 0.70 m/s (<1.3m/s) MV peak P.9 mmHg (<5mmHg) MV mean P.0 mmHg (<48mmHg) MV DT: 144 msec (150-240msec) AORTIC VALVE: Normal Ranges: AoV Vmax: 1.16 m/s (<1.7m/s) AoV Peak P.4 mmHg (<20mmHg) AoV Mean P.0 mmHg (1.7-11.5mmHg) LVOT Max Dionisio: 0.85 m/s (<1.1m/s) AoV VTI: 21.40 cm (18-25cm) LVOT VTI: 17.50 cm LVOT Diameter: 1.80 cm (1.8-2.4cm) AoV Area, VTI: 2.08 cm2 (2.5-5.5cm2) AoV Area,Vmax: 1.86 cm2 (2.5-4.5cm2) AoV Dimensionless Index: 0.82 RIGHT VENTRICLE: RV 1 3.13 cm RV 2 1.90 cm RV 3 6.28 cm TAPSE: 21.3 mm RV s' 0.12 m/s PULMONIC VALVE: Normal Ranges: PV Accel Time: 70 msec (>120ms) PV Max Dionisio: 0.9 m/s (0.6-0.9m/s) PV Max P.9 mmHg [id number] Madi Davalos MD Electronically signed on 09/20/2020 at 10:34:27 AM Final Normal [facility] MRI Brain w/wo Contraston MR Brain WO and W contrast IV Interpreted by: RANDY LEHMAN12/29/19 09:10MRN: [id number] Name: SANDRA SANCHEZ STUDY:MRI BRAIN W/WO CONTRAST; 12/28/2019 5:42 pm INDICATION:Neurofibromato sis diagnostic/mrt sherry 13ml multihance. COMPARISON:None. ORDERING CLINICIAN:MICHAEL STANTON TECHNIQUE:The brain was studied in the sagittal, axial and coronal planesutilizing FLAIR, T1 and T2 weighted images. FINDINGS:There is a normal-size ventricular system. There is no evidence ofintracranial mass or extra-axial collection. The skull base,paranasal sinuses and orbital structures are unremarkable. Diffusionweighted images and associated ADC maps of the brain wereunremarkable. There is no evidence of diffusion restriction tosuggest the presence of acute infarction. Gradient echo T2 weightedimages fail to demonstrate hemosiderin deposition or other evidenceof hemorrhage. Following intravenous injection of 13 ccMultiHance,there is no abnormal enhancement. Thin section sagittaland coronal T1 weighted images of the brain were also performed with3-D reconstruction in multiple planes. There is no evidence ofneuronal migrational abnormality or heterotopic zuniga matter. Thetemporal horns and temporal lobe zuniga matter are unremarkable. IMPRESSION:* There is no evidence of mass, infarction or hemorrhage. THIS [facility] [place]: RANDY LEHMAN 12/29/19 09:10 Normal [facility] Work Phone: MR Brain WO and W contrast IV [email or web address] click on the link to view the study images Normal [facility] Work Phone: MRI Cervical w/wo Contraston 12-28-2019 MRI Cervical w/wo Contrast Interpreted by: RANDY LEHMAN12/29/19 13:38MRN: [id number] Name: SANDRA SANCHEZ STUDY:MR CERVICAL WO/W CONTRAST; MR L-SPINE WO/W CONTRAST; MR T-SPINE WO/W;12/28/2019 5:42 pm INDICATION:Neurofibromato sis diagnostic; Neurofibromatosis diagnostic /mrt kc13ml multihance. COMPARISON:MRI of the brachial plexus 12/11/2019 [id number]; [id number] ORDERING CLINICIAN:MICHAEL STANTON TECHNIQUE:MRI of cervical, thoracic, and lumbar spine was performed with andwithout contrast. A total of 13 cc MultiHance gadolinium basedintravenous contrast was administered. Thereafter sagittal T2, stir,pre and post contrast T1 images as well as T2 axial, T1 axial pre andpost-contrast images were obtained of the cervical, thoracic, andlumbar spine FINDINGS:Cervical spine: Alignment: The vertebral alignment is within normal limits. Vertebrae/Intervertebral Discs: There is preservation of vertebralbody heights and intervertebral disc spaces. No marrow signalabnormality is seen within the cervical spine. Spinal cord: Normal in caliber and signal. C1-C2: The cervicomedullary junction appears unremarkable. There isno central canal stenosis. C2-C3: No posterior disc contour abnormality. No facet jointarthropathy. No central canal stenosis. No neural foramen narrowing. C3-C4: Very small disc osteophyte complex. This causes effacement ofthe ventral thecal sac. No central canal stenosis. Bilateral neuralforamina are normal C4-C5: Very minimal disc osteophyte complex which causes very mildeffacement ventral thecal sac. No central canal stenosis. Bilateralneural foramina normal. C5-C6: Very minimal disc osteophyte complex which causes no centralstenosis. Minimal effacement anterior thecal sac. No central canalstenosis. Anterior to the left anterior tubercle there is a K4qaetuebkubse/heterogene ously enhancing lesion. This measuresapproximately 1.3 by 0.8 cm this does not involve the neural foraminaor exiting nerve roots. C6-C7: No posterior disc contour abnormality. No facet jointarthropathy. No central canal stenosis. No neural foramen narrowing.Numerous T2 hyperintense heterogeneously enhancing lesions anteriorto the cervical bodies. No neural foramen involvement. C7-T1: 1 No posterior disc contour abnormality. No facet jointarthropathy. No central canal stenosis. In the left sided neuralforamen there is a T2 hyperintense/T1 hypointense heterogeneouslyenhancing lesion arising from the neural foramen. This lesion extendsalong the anterior and posterior nerve roots. The neural foramenappears mildly expanded when compared to the right. Other than the previously mentioned enhancing lesions the paraspinoussoft tissues appear unremarkable. Thoracic spine: Alignment: The alignment is within normal limits. Vertebral body/intervertebral disc: There is preservation ofvertebral body heights and intervertebral disc spaces. There are fewscattered small hemangiomas throughout the thoracic spine. Spinal cord: Unremarkable. T1-L1: No posterior disc contour abnormality. No significant facetjoint arthropathy. Innumerable neurofibromas are seen throughout the thoracic spine withvarying degrees of neural foramen expansion. All lesions G2uitxukflkjz/T2 hyperintense mildly heterogeneously enhancing which ischaracteristic for neurofibroma. These are slightly asymmetricallymore prominent on the left as opposed to the right. There arenumerous similar masses in the anterior paraspinous soft tissues.Largest of these lesions is in the anterior left lateral margin ofthe T3/T4 vertebral body. Lumbar spine: There are 5 lumbar type vertebral bodies. Alignment: There is preservation of the normal lordosis of the lumbarspine. No spondylolisthesis or spondylolysis. Vertebral bodies and intervertebral disc: There is preservation ofvertebral body height. The marrow signal throughout the lumbar spineare unremarkable. There is preservation of the intervertebral discheight. Conus medullaris: The distal thoracic spinal cord is unremarkablewith conus medullaris terminates at rostral end plate of L2. L1-L2: No posterior disc contour abnormality. No facet jointarthropathy. No central canal stenosis. No neural foramen narrowing.Are few small T1 hypointense/T2 hyperintensities region right neuralforamen these likely represent small neurofibromas. No neural foramenexpansion. L2-L3: No posterior disc contour abnormality. No facet jointarthropathy. No central canal stenosis. No neural foramen narrowing.Multiple presumed neurofibromas are seen in the region right neuralforamen. L3-L4: No posterior disc contour abnormality. No facet jointarthropathy. No central canal stenosis. No neural foramen narrowing. L4-L5: No posterior disc contour abnormality. Moderate facet jointarthropathy. No central canal stenosis. No neural foramen narrowing. L5-S1: No posterior disc contour abnormality. No facet jointarthropathy. No central canal stenosis. No neural foramen narrowing. Multiple T1 hypointense/T2 hyperintense nonenhancing lesions are seenin the anterior soft tissues. These likely represent lymph nodes. IMPRESSION:1. Numerous neurofibromas most notable in lower cervical and upperto midthoracic spine. No significant neural foramen expansion isidentified.2. Numerous lesions in the periaortic and anterior paraspinous softtissues which likely represent lymph nodes etiologies includereactive, infectious, or neoplastic etiologies.3. Mild degenerative changes of the cervical spine.4. THIS EXAMINATION [facility] [place] signed [place]: RANDY LEHMAN 12/29/19 13:38 Normal [facility] Work Phone: MRI Ankle w/wo Contraston MR Ankle WO and W contrast IV Interpreted by: PAVITHRA HOWARD12/11/19 11:04MRN: [id number] Name: SANDRA SANCHEZ STUDY:MRI ANKLE W/O-W CONTRAST; MRI TIBIA W/O-W CONTRAST; INDICATION:Neurofibromato sis diagnostic. COMPARISON:None [id number] ORDERING CLINICIAN:MICHAEL BUERKI TECHNIQUE:Routine multiplanar multisequential MRI of the right tibia and anklebefore and after the uneventful administration of 12 mL MultiHancegadolinium contrast. FINDINGS:Numerous small neurofibromas are noted throughout the entirety of theright calf posteriorly, both along the major nerve groups and alongbranch nerves. There is no evidence of fracture. There is no marrow replacement lesions seen. There is fairly extensive fatty atrophy of the posterior compartmentmusculature of the calf and of the intrinsic musculature of the rightfoot consistent with chronic denervation change. There is no evidence of acute tendinous or ligamentous tear. There is a mild amount of retrocalcaneal bursitis. IMPRESSION:Numerous small neurofibromas in the calf. No single aggressive lesionidentified. Fatty atrophy of the musculature of the posterior calf and of thefoot consistent with chronic denervation change.Electronically signed by: PAVITHRA HOWARD 12/11/19 11:04 Normal [facility] Work Phone: MRI Brachial Plexus w/wo Con traston 12-11-2019 MR Brachial plexus WO and W contrast IV Interpreted by: PAVITHRA HOWARD12/11/19 10:42MRN: [id number] Name: SANDRA SANCHEZ STUDY:MRI SHOULDER W/O-W CONTRAST; MR B PLEXUS WO/W CONTRAST; INDICATION:Neurofibromato sis diagnostic. COMPARISON:None [id number] ORDERING CLINICIAN:MICHAEL STANTON TECHNIQUE:Routine multiplanar multisequential MRI right shoulder and brachialplexus before and after the uneventful administration of 12 mLMultiHance gadolinium contrast. FINDINGS:There are extensive changes of neurofibromatosis. Plexiformneurofibromas are seen extensively throughout the cervical andthoracic neural foramen bilaterally. These involve the brachialplexus extensively bilaterally as well and extend into the rightshoulder girdle diffusely. The largest lesions seen are in the left paratracheal soft tissuesand are incompletely evaluated on this examination with a largelesion measuring 4.5 by 1.8 by 1.2 cm. There is also a large left paraspinal lesion at the level of N2bywrhmkyy approximately 3 cm in size. Numerous intercostal neurofibromas are identified bilaterally andrelatively symmetrically. The lesions extend through the right brachial neurovascular bundleand into the upper arm and along the axillary neurovascular bundle. No discrete single aggressive lesion is identified. There is no evidence of bony destructive lesion about the shouldergirdle. Some of the lesions do look to remodel the margins of thethoracic vertebra and potentially some of the ribs in a patternconsistent with longstanding erosive change. No evidence of a bony marrow replacement lesion. No focal fluid collections. No evidence of gross denervation about the upper paraspinal tissuesor in the right shoulder. In the shoulder incidental note is made of some mildacromioclavicular arthrosis and subacromial subdeltoid bursitis. 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 There is no specific lesion highly suggestive of transformation oraggressive characteristics. The largest lesions are in the left paratracheal soft tissues in theneck and along the left paraspinal soft tissues at the level of T4. Mild acromioclavicular arthrosis and subacromial subdeltoid bursitisin the right shoulder without evidence of other internal derangement.Electronicall y signed by: PAVITHRA HOWARD 12/11/19 10:42 Normal [facility] Work Phone: MRI Knee w/wo Contraston MR Knee WO and W contrast IV Interpreted by: PAVITHRA HOWARD12/11/19 10:44Addendum BeginsMRN: [id number] Name: SANDRA SANCHEZ ADDENDUM:There is a voice recognition mistake in the above report. The phrase plaques from neurofibromas should be replaced byplexiform neurofibromas.Addendum EndsMRN: [id number] Name: SANDRA SANCHEZ STUDY:MRI KNEE W/O-W CONTRAST; INDICATION:Neurofibromato sis diagnostic. COMPARISON:None ORDERING CLINICIAN:MICHAEL STANTON TECHNIQUE:Routine multiplanar multisequential MRI right knee before and afterthe uneventful administration of intravenous contrast, 12 mLMultiHance. FINDINGS:Right knee: No evidence of internal derangement in the right knee.Menisci and ligaments normal. No significant arthritic change. There are findings of extensive plaques form neurofibromatosis noneinvolving the sciatic nerve and common peroneal and numerous branchnerves throughout the entirety of the visualized right knee. There is no evidence of a large or dominant lesion. The largestindividual focus in the popliteal fossa measuring approximately 2 cmx 1 cm x 0.7 cm. No specific aggressive lesions seen. There is no evidence of fracture. No bony erosive changes are identified. The posterior compartment musculature shows a significant amount offatty replacement and atrophy consistent with denervation change. IMPRESSION:Findings of extensive plaques form neural fibromatosis about the softtissues of the right knee without evidence of a single dominantlesion. Extensive fatty atrophy of the posterior compartment musculature ofthe lower leg consistent with denervation. Electronically signed by: PAVITHRA HOWARD 12/11/19 10:44 Normal -[facility] Work Phone: MRI Shoulder w/wo Contraston 12-11-2019 MR Shoulder WO and W contrast IV Interpreted by: PAVITHRA HOWARD12/11/19 10:42MRN: [id number] Name: SANDRA SANCHEZ STUDY:MRI SHOULDER W/O-W CONTRAST; MR B PLEXUS WO/W CONTRAST; INDICATION:Neurofibromato sis diagnostic. COMPARISON:None [id number] ORDERING CLINICIAN:MICHAEL STANTON TECHNIQUE:Routine multiplanar multisequential MRI right shoulder and brachialplexus before and after the uneventful administration of 12 mLMultiHance gadolinium contrast. FINDINGS:There are extensive changes of neurofibromatosis. Plexiformneurofibromas are seen extensively throughout the cervical andthoracic neural foramen bilaterally. These involve the brachialplexus extensively bilaterally as well and extend into the rightshoulder girdle diffusely. The largest lesions seen are in the left paratracheal soft tissuesand are incompletely evaluated on this examination with a largelesion measuring 4.5 by 1.8 by 1.2 cm. There is also a large left paraspinal lesion at the level of F0rofqqtkpe approximately 3 cm in size. Numerous intercostal neurofibromas are identified bilaterally andrelatively symmetrically. The lesions extend through the right brachial neurovascular bundleand into the upper arm and along the axillary neurovascular bundle. No discrete single aggressive lesion is identified. There is no evidence of bony destructive lesion about the shouldergirdle. Some of the lesions do look to remodel the margins of thethoracic vertebra and potentially some of the ribs in a patternconsistent with longstanding erosive change. No evidence of a bony marrow replacement lesion. No focal fluid collections. No evidence of gross denervation about the upper paraspinal tissuesor in the right shoulder. In the shoulder incidental note is made of some mildacromioclavicular arthrosis and subacromial subdeltoid bursitis. 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 There is no specific lesion highly suggestive of transformation oraggressive characteristics. The largest lesions are in the left paratracheal soft tissues in theneck and along the left paraspinal soft tissues at the level of T4. Mild acromioclavicular arthrosis and subacromial subdeltoid bursitisin the right shoulder without evidence of other internal derangement.Electronicall y signed by: PAVITHRA HOWARD 12/11/19 10:42 Normal [facility] Work Phone: MRI Tibia w/wo Contraston MRI Tibia w/wo Contrast Interpreted by: PAVITHRA HOWARD12/11/19 11:04MRN: [id number] Name: SANDRA SANCHEZ STUDY:MRI ANKLE W/O-W CONTRAST; MRI TIBIA W/O-W CONTRAST; INDICATION:Neurofibromato sis diagnostic. COMPARISON:None [id number] ORDERING CLINICIAN:MICHAEL STANTON TECHNIQUE:Routine multiplanar multisequential MRI of the right tibia and anklebefore and after the uneventful administration of 12 mL MultiHancegadolinium contrast. FINDINGS:Numerous small neurofibromas are noted throughout the entirety of theright calf posteriorly, both along the major nerve groups and alongbranch nerves. There is no evidence of fracture. There is no marrow replacement lesions seen. There is fairly extensive fatty atrophy of the posterior compartmentmusculature of the calf and of the intrinsic musculature of the rightfoot consistent with chronic denervation change. There is no evidence of acute tendinous or ligamentous tear. There is a mild amount of retrocalcaneal bursitis. IMPRESSION:Numerous small neurofibromas in the calf. No single aggressive lesionidentified. Fatty atrophy of the musculature of the posterior calf and of thefoot consistent with chronic denervation change.Electronically signed by: PAVITHRA HOWARD 12/11/19 11:04 Normal [facility] Work Phone: Mamm - Screening Mammogram w / Tomosynthesison 11-18-2019 MG Breast screening Interpreted by: JESSICA KWOK11/26/19 11:24MRN: [id number] Name: SANDRA SANCHEZ STUDY:DIGITAL MAMM SCREENING W/ YONG; 11/18/2019 2:06 pm ORDERING CLINICIAN:RAMANDEEP SMALLWOOD INDICATION:Screening. COMPARISON:05/09/2017 12/10/2013 FINDINGS:2D and tomosynthesis images were reviewed at 1 mm slice thickness. The breast tissue is extremely dense, which may limit the sensitivityof mammography. No suspicious masses or calcifications areidentified. IMPRESSION:No mammographic evidence of malignancy. BI-RADS CATEGORY: Category: 1 - Negative.Recommendation: 1 Year Screening. For any future breast imaging appointments, please call [phone]). Patient letter sent SNORM Electronically signed by: MARIAH KWOK 11/26/19 11:24 Normal [facility] Work Phone: Comment on above: ORDER REVISED TO A D IGITAL MAMM SCREENING W/ YONG BY RADIOLOGIST; Original Order Number: [id number] Otheron 11-18-2019 Please click on the link to view the study images Normal [facility] Work Phone: Otheron 05-09-2017 Please click on the link to view the study images Normal [facility] Work Phone: Amylaseon 11-24-2016 Amylase 85 Int._Unit/L Normal 25-125 [facility] Comment on above: Performed By: #### 2 [id number] ####[facility] [address]KmjLzct[address] [place] [address] Auto Diffon 11-24-2016 Basophils Auto #/vol (Bld) 0.0 E3/mcL Normal 0.0-0.2 [facility] Comment on above: Order Comment: Order Added by Discern Expert. Performed By: #### 2 [id number] ####[facility] [address]zcoStfTguu[address] [place] [address] Basophils/100 WBC Auto (Bld) 0.7 % Normal 0.0-2.0 [facility] Comment on above: Order Comment: Order Added by Discern Expert. Performed By: #### 2 [id number] ####[facility] [address]coBlgVzgi4034 [place] [address] Eos Absolute 0.1 E3/mcL Normal 0.0-0.7 [facility] Comment on above: Order Comment: Order Added by Discern Expert. Performed By: #### 2 [id number] ####[facility] [address]zcoCgrWpyf[address]255 [place] [address] Eosinophils/100 leukocytes 1.3 % Normal 0.0-11.0 [facility] Comment on above: Order Comment: Order Added by Discern Expert. Performed By: #### 2 809575 ####[facility] [address]UsbCyed[address]250 [place] [address] Lymphocytes 2.0 E3/mcL Normal 1.2-3.4 [facility] Comment on above: Order Comment: Order Added by Discern Expert. Performed By: #### 2 352740 ####[facility] [address]zcoKsqAbxo2541 [place] [address] Lymphocytes/100 leukocytes 35.0 % Normal 20.0-55.0 [facility] Comment on above: Order Comment: Order Added by Discern Expert. Performed By: #### 2 678259 ####[facility] [address]zcoEtzUkyu4820 [place] [address] Ogle Absolute 0.4 E3/mcL Normal 0.0-0.7 [facility] Comment on above: Order Comment: Order Added by Discern Expert. Performed By: #### 2 682902 ####[facility] VerduzcoInxRwmu3628 [place] [address] Monocytes/100 leukocytes 7.6 % Normal 0.0-10.0 [facility] Comment on above: Order Comment: Order Added by Discern Expert. Performed By: #### 2 078215 ####[facility] [address]zcoOanAktz1924 [place] [address] Neutro Absolute 3.1 E3/mcL Normal 1.4-6.5 [facility] Comment on above: Order Comment: Order Added by Discern Expert. Performed By: #### 2 262916 ####[facility] [address]zcoQetRugd[address]275 [place] [address] Neutro Auto 55.4 % Normal 37.0-75.0 [facility] Comment on above: Order Comment: Order Added by Discern Expert. Performed By: #### 2 952874 ####[facility] [address] [place] [address] BMPon 11-24-2016 BUN/Creatinine Ratio 18.3 ratio Normal 5.4-30.0 [facility] Comment on above: Performed By: #### 2 899393 ####[facility] [address] [place] [address] Creatinine 0.6 mg/dL Normal 0.6-1.3 [facility] Comment on above: Performed By: #### 2 973807 ####[facility] [address] [place] [address] Urea nitrogen 11 mg/dL Normal 7-18 [facility] Comment on above: Performed By: #### 2 791738 ####[facility] Ver[address]zcoPiwOxqy[address]5 [place] [address] Calcium 8.8 mg/dL Normal 8.4-10.2 [facility] Comment on above: Performed By: #### 2 128842 ####[facility] [address]zcoUcaXlgl7932 [place] [address] Chloride 103 mmol/L Normal 98-107 [facility] Comment on above: Performed By: #### 2 512698 ####[facility] [address]zcoQsiOaaq5401 [place] [address] CO2 24.9 mmol/L Normal 24.0-30.0 [facility] Comment on above: Performed By: #### 2 869804 ####[facility] [address]zcoPnxRypz4421 [place] [address] Glucose mass conc 98 mg/dL Normal 70-99 [facility] Comment on above: Performed By: #### 2 492238 ####[facility] [address]coCtkEnwb[address]656 [place] [address] Potassium molar conc 3.6 mmol/L Normal 3.5-5.1 [facility] Comment on above: Performed By: #### 2 911312 ####[facility] [address]zcoZalYkpw6490 [place] [address] Sodium 133 mmol/L Low 136-145 [facility] Comment on above: Performed By: #### 2 655209 ####[facility] [address]zcoMkoIbhh4028 [place] [address] CBC w/ Auto Diffon Erythrocyte distribution width Auto Ratio (RBC) 11.9 % Normal 11.5-14.5 [facility] Comment on above: Performed By: #### 2 073774 ####[facility] [address] [place] [address] Erythrocytes (RBC) 4.23 E6/mcL Normal 3.90-5.40 [facility] Comment on above: Performed By: #### 2 340508 ####[facility] [address] [place] [address]403005 Hematocrit (HCT) 40.6 % Normal 36.0-48.0 [facility] Comment on above: Performed By: #### 2 048671 ####[facility] [address] [place] [address]403005 Hemoglobin mass conc (Bld) 13.9 g/dL Normal 12.0-16.0 [facility] Comment on above: Performed By: #### 2 695774 ####[facility] [address] [place] 5403005 MCH 32.8 pg High 27.0-31.0 [facility] Comment on above: Performed By: #### 2 000452 ####[facility] [address]zcoCwwUcyf[address] [place] 5403005 MCHC mass conc (RBC) 34.2 g/dL Normal 33.0-37.0 [facility] Comment on above: Performed By: #### 2 020386 ####[facility] [address] [place] [address]403005 MCV 96.0 fL Normal 78.0-100.0 [facility] Comment on above: Performed By: #### 2 005837 ####[facility] [address]YtcTtro[address] [place] 5403005 Platelet mean volume (PMV) 10.4 fL Normal 7.4-11.0 [facility] Comment on above: Performed By: #### 2 822029 ####[facility] [address] [place] [address] Platelets 143 E3/mcL Normal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 Systolic blood pressure 130 mm[Hg] No Primary Care Physician [facility] 10-15-2022 08:21-0400 Body temperature 98.1 [degF] Dre Monte MD Work Phone: [facility] 10-15-2022 08:21-0400 Body weight 59.65 kg Dre Monte MD Work Phone: [facility] 10-15-2022 08:21-0400 Diastolic blood pressure 71 mm[Hg] Dre Monte MD Work Phone: [facility] 10-15-2022 08:21-0400 Heart rate 98 /min Dre Monte MD Work Phone: [facility] 10-15-2022 08:21-0400 Respiratory rate 18 /min Dre Monte MD Work Phone: [facility] 10-15-2022 08:21-0400 SaO2% (BldA) [Mass fraction] 98 % Dre Monte MD Work Phone: [facility] 10-15-2022 08:21-0400 Systolic blood pressure 127 mm[Hg] Dre Monte MD Work Phone: [facility] 07-29-2022 13:41-0400 Body height 165.1 cm Ramandeep Tom DO Work Phone: [facility] 07-29-2022 13:41-0400 Body mass index (BMI) [Ratio] 21.93 kg/m2 Ramandeep Tom DO Work Phone: [facility] 07-29-2022 13:41-0400 Body temperature 99 [degF] Ramandeep Tom DO Work Phone: [facility] 07-29-2022 13:41-0400 Body weight 59.78 kg Ramandeep Tom DO Work Phone: [facility] 07-29-2022 13:41-0400 Diastolic blood pressure 71 mm[Hg] Ramandeep Tom DO Work Phone: [facility] 07-29-2022 13:41-0400 Heart rate 78 /min Ramandeep Tom DO Work Phone: [facility] 07-29-2022 13:41-0400 Respiratory rate 14 /min Ramandeep Tom DO Work Phone: [facility] 07-29-2022 13:41-0400 SaO2% (BldA) [Mass fraction] 96 % Ramandeep Ortega Leona DO Work Phone: [facility] 07-29-2022 13:41-0400 Systolic blood pressure 107 mm[Hg] Ramandeep Silver Melara DO Work Phone: [facility] 06-25-2022 11:54-0500 Body height 166.4 cm Rosa Ponce MD Work Phone: [facility] 06-25-2022 11:54-0500 Body weight 58.06 kg Rosa Ponce MD Work Phone: [facility] 06-25-2022 11:54-0500 Diastolic blood pressure 62 mm[Hg] Rosa Ponce MD Work Phone: [facility] 06-25-2022 11:54-0500 Heart rate 87 /min Rosa Ponce MD Work Phone: [facility] 06-25-2022 11:54-0500 SaO2% (BldA) [Mass fraction] 98 % Rosa Ponce MD Work Phone: [facility] 06-25-2022 11:54-0500 Systolic blood pressure 109 mm[Hg] Rosa Ponce MD Work Phone: [facility] 03-12-2022 14:05-0400 Body temperature 98.6 [degF] Dre Monte MD Work Phone: [facility] 03-12-2022 14:05-0400 Body weight 61.05 kg Dre Monte MD Work Phone: [facility] 03-12-2022 14:05-0400 Diastolic blood pressure 73 mm[Hg] Dre Monte MD Work Phone: [facility] 03-12-2022 14:05-0400 Heart rate 78 /min Dre Monte MD Work Phone: [facility] 03-12-2022 14:05-0400 Respiratory rate 20 /min Dre Monte MD Work Phone: [facility] 03-12-2022 14:05-0400 SaO2% (BldA) [Mass fraction] 98 % Dre Monte MD Work Phone: [facility] 03-12-2022 14:05-0400 Systolic blood pressure 118 mm[Hg] Dre Monte MD Work Phone: [facility] 11-01-2021 15:34-0400 Body height 164.1 cm Fartun Patel MD Work Phone: [facility] 11-01-2021 15:34-0400 Body weight 61.7 kg Fartun Patel MD Work Phone: [facility] 10-16-2021 14:54-0400 1 1 Ramandeep Holt Van Nostran [facility] Work Phone: Comment on above: PHQ-9 10-16-2021 13:57-0400 Body mass index (BMI) [Ratio] 24.99 kg/m2 Ramandeep Holt Van Nostran Work Phone: [facility] Work Phone: 10-16-2021 13:57-0400 Body surface area Derived from formula 1.67 m2 Ramandeep Holt Van Nostran Work Phone: [facility] Work Phone: 10-16-2021 13:57-0400 Body temperature 97.7 [degF] Ramandeep Holt Van Nostran Work Phone: [facility] Work Phone: 10-16-2021 13:57-0400 Body weight 64 kg Ramandeep Holt Van Nostran Work Phone: [facility] Work Phone: 10-16-2021 13:57-0400 Diastolic blood pressure 69 mm[Hg] Ramandeep Holt Van Nostran Work Phone: [facility] Work Phone: 10-16-2021 13:57-0400 Heart rate 84 /min Ramandeep Holt Van Nostran Work Phone: [facility] Work Phone: 10-16-2021 13:57-0400 Respiratory rate 16 /min Ramandeep Holt Van Nostran Work Phone: [facility] Work Phone: 10-16-2021 13:57-0400 SaO2% (BldA) [Mass fraction] 97 % Ramandeep E Van Nostran Work Phone: [facility] Work Phone: 10-16-2021 13:57-0400 Systolic blood pressure 106 mm[Hg] Ramandeep Holt Van Nostran Work Phone: [facility] Work Phone: 08-22-2021 10:26-0400 Body height 164.7 cm Dre Monte MD Work Phone: [facility] 08-22-2021 10:26-0400 Body temperature 97.9 [degF] Dre Monte MD Work Phone: [facility] 08-22-2021 10:26-0400 Body weight 66.77 kg Dre Monte MD Work Phone: [facility] 08-22-2021 10:26-0400 Diastolic blood pressure 74 mm[Hg] Dre Monte MD Work Phone: [facility] 08-22-2021 10:26-0400 Heart rate 91 /min Dre Monte MD Work Phone: [facility] 08-22-2021 10:26-0400 Respiratory rate 20 /min Dre Monte MD Work Phone: [facility] 08-22-2021 10:26-0400 SaO2% (BldA) [Mass fraction] 100 % Dre Monte MD Work Phone: [facility] 08-22-2021 10:26-0400 Systolic blood pressure 119 mm[Hg] Dre Monte MD Work Phone: [facility] 06-13-2021 17:01-0500 Body height 160.02 cm Ramandeep Holt Van Nostran Work Phone: [facility] Work Phone: 06-13-2021 17:01-0500 Body mass index (BMI) [Ratio] 26.42 kg/m2 Ramandeep E Van Nostran Work Phone: [facility] Work Phone: 06-13-2021 17:01-0500 Body surface area Derived from formula 1.71 m2 Ramandeep Yanet Van Nostran Work Phone: [facility] Work Phone: 06-13-2021 17:01-0500 Body temperature 98 [degF] Ramandeep E Van Nostran Work Phone: [facility] Work Phone: 06-13-2021 17:01-0500 Body weight 67.65 kg Ramandeep Holt Van Nostran Work Phone: [facility] Work Phone: 06-13-2021 17:01-0500 Diastolic blood pressure 72 mm[Hg] Ramandeep Yanet Van Nostran Work Phone: [facility] Work Phone: 06-13-2021 17:01-0500 Heart rate 89 /min Ramandeep Yanet Van Nostran Work Phone: [facility] Work Phone: 06-13-2021 17:01-0500 SaO2% (BldA) [Mass fraction] 97 % Ramandeep Holt Van Nostran Work Phone: [facility] Work Phone: 06-13-2021 17:01-0500 Systolic blood pressure 105 mm[Hg] Ramandeep Holt Van Nostran Work Phone: [facility] Work Phone: 01-04-2021 15:02-0400 Body mass index (BMI) [Ratio] 22.33 kg/m2 Ramandeep Holt Van Nostran Work Phone: [facility] Work Phone: 01-04-2021 15:02-0400 Body surface area Derived from formula 1.59 m2 Ramandeep Holt Van Nostran Work Phone: [facility] Work Phone: 01-04-2021 15:02-0400 Body weight 57.18 kg Ramandeep Holt Van Nostran Work Phone: [facility] Work Phone: 01-04-2021 15:02-0400 Diastolic blood pressure 68 mm[Hg] Ramandeep Holt Van Nostran Work Phone: [facility] Work Phone: 01-04-2021 15:02-0400 Heart rate 104 /min Ramandeep Holt Van Nostran Work Phone: [facility] Work Phone: 01-04-2021 15:02-0400 SaO2% (BldA) [Mass fraction] 97 % Ramandeep Holt Van Nostran Work Phone: [facility] Work Phone: 01-04-2021 15:02-0400 Systolic blood pressure 94 mm[Hg] Ramandeep Holt Van Nostran Work Phone: [facility] Work Phone: 12-22-2019 14:32-0400 BMI (Body Mass Index) 23.03 kg/m2 Ismael Monzon [facility] Work Phone: 12-22-2019 14:32-0400 Body Temperature 98.1 [degF] Ismael Monzon [facility] Work Phone: 12-22-2019 14:32-0400 Body weight 58.97 kg Ismael Monzon [facility] Work Phone: 12-22-2019 14:32-0400 BP Diastolic 90 mm[Hg] Ismael Chandragers [facility] Work Phone: 12-22-2019 14:32-0400 BP Systolic 163 mm[Hg] Ismael Chandragers [facility] Work Phone: 12-22-2019 14:32-0400 BSA (Body Surface Area) 1.61 m2 Ismael Chandragers [facility] Work Phone: 12-22-2019 14:32-0400 Height 160.02 cm Ismael Monzon [facility] Work Phone: 12-22-2019 14:32-0400 Pulse (Heart Rate) 92 /min Ismael Monzon [facility] Work Phone: 12-22-2019 14:32-0400 Pulse Oximetry 96 % Ismael Chandragers [facility] Work Phone: 12-22-2019 14:32-0400 Respiratory Rate 16 /min Ismael Chandragers [facility] Work Phone: 12-22-2019 14:32-0400 9 1 Ismael Chandragers [facility] Work Phone: Comment on above: Pain Scale 10-04-2019 17:07-0400 BMI (Body Mass Index) 22.76 kg/m2 Ramandeep Tom [facility] Work Phone: 10-04-2019 17:07-0400 Body Temperature 98.3 [degF] [facility] Work Phone: 10-04-2019 17:07-0400 Body weight 58.29 kg [facility]ep Tom [facility] Work Phone: 10-04-2019 17:07-0400 BP Diastolic 81 mm[Hg] [facility] Work Phone: 10-04-2019 17:07-0400 BP Systolic 119 mm[Hg] Ramandeep Tom [facility] Work Phone: 10-04-2019 17:07-0400 BSA (Body Surface Area) 1.6 m2 Ramandeep Tom [facility] Work Phone: 10-04-2019 17:07-0400 Pulse (Heart Rate) 95 /min Ramandeep Tom [facility] Work Phone: 10-04-2019 17:07-0400 Pulse Oximetry 98 % Ramandeep Tom [facility] jA [facility] Work Phone: 10-04-2019 17:07-0400 Respiratory Rate 12 /min Ramandeep Tom [facility] Work Phone: Encounters Encounter Date Encounter Type Care Provider Facility Start: 11-17-2024 End: 11-17-2024 Office outpatient visit 15 minutes Michelle Menchaca MD Work Phone: [facility] Comment on above: Medication managemen t (Primary Dx); RUQ abdominal pain Start: 11-17-2024 End: 11-17-2024 ambulatory MICHELLE MENCHACA [facility] Start: 11-04-2024 End: 11-04-2024 Patient encounter procedure Dre Monte MD Work Phone: [facility] Comment on above: Nerve sheath tumor ( Primary Dx); Chronic pain due to neoplasm Start: 11-04-2024 End: 11-04-2024 ambulatory DRE LOBROSE Facility:[facility] Start: 10-26-2024 End: 10-26-2024 ambulatory DRE LOBBOUS Facility:[facility] Start: 10-26-2024 End: 10-26-2024 Subsequent hospital visit by physician [employer] [facility] (I-Stat/1.5t) Work Phone: Radiology Comment on above: 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] Start: 10-22-2024 End: 10-22-2024 ambulatory [facility] Start: 10-22-2024 End: 10-22-2024 Subsequent hospital visit by physician Christina Junior [facility] Comment on above: RUQ abdominal pain Start: 10-15-2024 End: 10-15-2024 Office outpatient visit 25 minutes Michelle Menchaca MD Work Phone: [facility] Comment on above: RUQ abdominal pain ( Primary Dx); Insomnia, unspecified type; Constipation, unspecified constipation type; Lymphedema; Neurofibromatosis (Multi) Start: 10-15-2024 End: 10-15-2024 ambulatory [facility] Start: 06-15-2024 End: 06-15-2024 ambulatory Ramandeep Lobo Facility:[facility] Start: 03-16-2024 End: 03-16-2024 Subsequent hospital visit by physician Keshawn Mcdowell 2 [facility] Comment on above: Screening for cardio vascular condition Start: 03-16-2024 End: 03-16-2024 ambulatory [facility] Start: 03-01-2024 End: 03-01-2024 Subsequent hospital visit by physician Christina Junior [facility] Comment on above: Other screening mamm ogram Postmenopausal estro gen deficiency Start: 03-01-2024 End: 03-01-2024 ambulatory [facility] Start: 02-03-2024 End: 02-03-2024 ambulatory [facility] Start: 02-03-2024 End: 02-03-2024 Office outpatient visit 25 minutes Ramandeep Tom DO Work Phone: [facility] Comment on above: Insomnia, unspecifie d type (Primary Dx); Neurofibromatosis (Multi); Osteopenia of multiple sites; Neck stiffness; Cervicogenic headache; Other complicated headache syndrome; Screening for cardiovascular condition; Recurrent cold sores; Elevated LDL cholesterol level Start: 02-03-2024 End: 02-03-2024 ambulatory RAMANDEEP Holt SILVER [facility] Ambulatory Start: 01-16-2024 End: 01-16-2024 ambulatory RAMANDEEP TAMARA LOBO Facility:[facility] Start: 01-16-2024 End: 01-16-2024 Patient encounter procedure Alondra Ponce APRN.[facility] Work Phone: [facility] Comment on above: Irritation of eye (P rimary Dx); Abrasion of left cornea, initial encounter Start: 12-12-2023 End: 12-12-2023 ambulatory CANDIDO CHAVEZ Facility:[facility] Start: 12-12-2023 End: 12-12-2023 Patient encounter procedure Candido Chavez MD Work Phone: [facility] Comment on above: 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); Right foot drop; Myofascial pain; Neurofibromatosis (HCC); 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 on rotation to right; Cramp and spasm; Cervical dystonia Start: 11-12-2023 Orders Only Estelle simon MD Work Phone: [facility] Comment on above: Spasticity (Primary Dx); Chronic pain syndrome; Neurofibromatosis 2 (HCC) Start: 10-27-2023 Orders Only rDe Dawkins Work Phone: [facility] Comment on above: Urinary incontinence , unspecified type (Primary Dx); Nerve sheath tumor; Benign neoplasm of peripheral nerve sheath Start: 10-24-2023 Orders Only Dre Dawkins Work Phone: [facility] Comment on above: Nerve sheath tumor ( Primary Dx) Start: 10-23-2023 End: 10-23-2023 Patient encounter procedure Dre Monte MD Work Phone: [facility] Comment on above: Nerve sheath tumor ( Primary Dx); Chronic pain due to neoplasm; Benign neoplasm of peripheral nerve sheath Start: 10-21-2023 End: 10-21-2023 Subsequent hospital visit by physician Mri Radio [facility] Wstr (I-Stat/1.5t) Work Phone: Radiology Comment on above: Neurofibromatosis (H CC) [Q85.00] Start: 08-19-2023 End: 08-19-2023 Patient encounter procedure Ramandeep Tom DO Work Phone: [facility] Comment on above: Medicare annual well ness visit, subsequent (Primary Dx); Encounter for screening for other disorder; Body mass index (BMI) of 23.0 to 23.9 in adult; Other screening mammogram; Insomnia, unspecified type; Screening for colon cancer; Neurofibromatosis (CMS/HCC); Osteopenia of multiple sites; Postmenopausal estrogen deficiency; Elevated LDL cholesterol level Start: 01-14-2023 End: 01-14-2023 Office outpatient visit 15 minutes Ramandeep Tom DO Work Phone: [facility] Comment on above: Insomnia, unspecifie d type (Primary Dx); Medication management; Recurrent urinary tract infection; Yeast infection; Healthcare maintenance; Neurofibromatosis (CMS/HCC) Start: 01-14-2023 End: 01-14-2023 Patient encounter status Ramandeep Tom DO Work Phone: [facility] Work Phone: Start: 11-12-2022 End: 11-12-2022 ambulatory No Primary Care Physician [facility] Work Phone: Start: 11-12-2022 End: 11-12-2022 Patient encounter procedure No Primary Care Physician [facility] Specimen Work Phone: Start: 11-12-2022 End: 11-12-2022 Patient encounter procedure No Primary Care Physician [facility] Work Phone: Start: 10-15-2022 End: 10-15-2022 Patient encounter procedure Dre Monte MD Work Phone: [facility] Comment on above: Nerve sheath tumor ( Primary Dx); Benign neoplasm of peripheral nerve sheath; Chronic pain due to neoplasm Start: 10-08-2022 End: 10-08-2022 Subsequent hospital visit by physician Mri [facility] Wstr (I-Stat/1.5t) Work Phone: Radiology Comment on above: 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] Start: 09-02-2022 ambulatory DO RAMANDEEP MELARA Facility:[id number] Start: 07-29-2022 End: 07-29-2022 Patient encounter procedure Ramandeep Tom DO Work Phone: [facility] Work Phone: Comment on above: Medicare annual well ness visit, subsequent (Primary Dx); Screening for colon cancer; Medication management; Insomnia, unspecified type; Breast cancer screening by mammogram; Neurofibromatosis (CMS/HCC); Osteopenia of multiple sites; Encounter for special screening examination Start: 07-15-2022 Telephone encounter Marina MESA [facility] Comment on above: Appointment Start: 07-03-2022 End: 07-03-2022 Subsequent hospital visit by physician Gi Radio Main Qb[facility] (I-Stat) Radiology Comment on above: 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] Start: 06-25-2022 End: 06-25-2022 Patient encounter procedure Rosa Ponce MD Work Phone: Cardiology Comment on above: Shortness of breath (Primary Dx); Neurofibromatosis, unspecified (HCC); Zenker's diverticulum Start: 05-23-2022 Orders Only Rosa Ponce MD Work Phone: Cardiology Comment on above: Neurofibromatosis, u nspecified (HCC) (Primary Dx); Neurofibroma; Other heart disorders in diseases classified elsewhere Other heart disorder s in diseases classified elsewhere (Primary Dx); Neurofibromatosis, unspecified (HCC) Start: 05-21-2022 Telephone encounter Jitendra thornton MD Work Phone: [facility] Comment on above: Consult (Symptomatic Zenker diverticulum ) Start: 05-17-2022 Telephone encounter Dre lopez MD Work Phone: [facility] Comment on above: Results SOFYA first available Start: 05-15-2022 End: 05-16-2022 ambulatory DRE MONTE Facility:[facility] Start: 05-15-2022 Telephone encounter Dre lopez MD Work Phone: [facility] Comment on above: Patient Update Start: 05-15-2022 End: 05-16-2022 ambulatory Christina De Anda [employer] Work Phone: [facility] Therapy Comment on above: Nerve sheath tumor ( Primary Dx); Benign neoplasm of peripheral nerve sheath Start: 05-15-2022 End: 05-15-2022 Subsequent hospital visit by physician Gi/Gu 1 [facility] Work Phone: Radiology Comment on above: 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] Start: 05-10-2022 Refill Osmar Giron MD Work Phone: [facility] Comment on above: Refill Request Start: 05-07-2022 AUDIT Ramandeep Leal Work Phone: [facility] Work Phone: Start: 05-06-2022 ambulatory DO RAMANDEEP MELARA Facility:[id number] Start: 04-29-2022 Refill Dre Dawkins Work Phone: [facility] Comment on above: Refill Request Start: 04-15-2022 Orders Only Dre Dawkins Work Phone: [facility] Comment on above: Nerve sheath tumor ( Primary Dx); Benign neoplasm of peripheral nerve sheath Start: 04-05-2022 ambulatory No Pcp Navigate [facility] Start: 04-05-2022 Refill Dre Monte M Juancho Work Phone: [facility] Comment on above: Refill Request Start: 03-28-2022 Refill Dre Dawkins Work Phone: [facility] Comment on above: Refill Request Start: 03-12-2022 End: 03-12-2022 Patient encounter procedure Dre Monte MD Work Phone: [facility] Comment on above: Nerve sheath tumor ( Primary Dx); Abnormal findings on diagnostic imaging of other specified body structures Start: 02-28-2022 Chart Update Ramandeep Yanet Leal Work Phone: [facility] Work Phone: Start: 02-26-2022 Refill Dre Lobbous M D Work Phone: [facility] Comment on above: Refill Request Start: 02-26-2022 AUDIT Ramandeep Yanet Leal Work Phone: [facility] Work Phone: Start: 02-25-2022 ambulatory DO [facility]EP Holt [facility] Facility:[id number] Start: 02-04-2022 AUDIT Ramandeep Yanet Leal Work Phone: [facility] Work Phone: Start: 12-02-2021 Refill Dre Lobbous M D Work Phone: [facility] Comment on above: Refill Request Start: 11-14-2021 Telephone encounter Edith chavarria [facility] Work Phone: [facility] Comment on above: Genetic testing Start: 11-12-2021 AUDIT Ramandeep Yanet Leal Work Phone: [facility] Work Phone: Start: 11-08-2021 AUDIT Ramandeep Yanet Leal Work Phone: [facility] Work Phone: Start: 11-04-2021 Chart Update Ramandeep Yanet Leal Work Phone: [facility] Work Phone: Start: 11-03-2021 Refill Dre Lobbous M D Work Phone: [facility] Comment on above: Refill Request Start: 11-01-2021 End: 11-01-2021 Patient encounter procedure Edith Sanchez LG Work Phone: [facility] Comment on above: Benign neoplasm of p eripheral nerve sheath (Primary Dx) Start: 10-17-2021 Chart Update Ramandeep Leal Work Phone: [facility] Work Phone: Start: 10-16-2021 Office outpatient vi sit 25 minutes Ramandeep Tom Work Phone: [facility] Work Phone: Start: 10-06-2021 Refill Dre Dawkins Work Phone: [facility] Comment on above: Refill Request Start: 09-17-2021 End: 09-17-2021 Subsequent hospital visit by physician M[facility] W[facility] (I-Stat/1.5t) Work Phone: Radiology Comment on above: Benign neoplasm of p eripheral nerve sheath [D36.10] Start: 09-13-2021 AUDIT [facility]andeep Leal [facility] Work Phone: Start: 08-22-2021 End: 08-22-2021 Patient encounter procedure Dre Monte MD Work Phone: [facility] Comment on above: Benign neoplasm of p eripheral nerve sheath (Primary Dx); Chronic pain due to neoplasm; Neuropathic pain Start: 07-31-2021 AUDIT Ramandeep Leal Work Phone: [facility] Work Phone: Start: 07-02-2021 Telephone encounter Ramandeep Melara Work Phone: [facility] Work Phone: Start: 06-29-2021 Patient encounter procedure Ramandeep Tom Work Phone: YM-Bswlncmieymsl-L[facility] [address] Work Phone: Start: 06-13-2021 Office outpatient vi sit 15 minutes Ramandeep E Van Nostran Work Phone: [facility] Work Phone: Start: 06-13-2021 Patient encounter procedure Ramandeep Holt Silver Nostran Work Phone: [facility] Work Phone: Start: 04-13-2021 Patient encounter procedure Ramandeep Holt Silver Michaudtran Work Phone: [facility]-Vascular Surgery-[facility] Work Phone: Start: 04-09-2021 AUDIT Ramandeep Holt Silver Barnhart ostran Work Phone: UU-Jwdsjuzuh-Zfamjch Work Phone: Start: 03-30-2021 Patient encounter procedure Ramandeep Holt Silver Melara Work Phone: UZ-Qwsvhgxepoiod-Ijk well [address] Work Phone: Start: 01-16-2021 Patient encounter procedure Ramandeep Holt Silver Michaudtran Work Phone: HB-Aqencjtkf-Rjfsbxa Work Phone: Start: 01-05-2021 Chart Update Ramandeep Holt Silver Barnhart ostran Work Phone: [facility] Work Phone: Start: 01-04-2021 Office outpatient vi sit 15 minutes Ramandeepjessica Hyltontran Work Phone: [facility] Work Phone: Start: 10-19-2020 Patient encounter procedure Ramandeep Holt Silver Michaudtran Work Phone: VJ-Sdxctigcb-SBMCG [place] [facility] Work Phone: Start: 01-04-2020 Patient encounter procedure Ismael Monzon [facility] Work Phone: Start: 01-03-2020 Patient encounter procedure Ismael Monzon [facility] Work Phone: Start: 12-22-2019 Patient encounter procedure Ismael Monzon [facility] Work Phone: Start: 11-08-2019 Patient encounter procedure Ramandeep Tom [facility] Work Phone: Start: 10-04-2019 Patient encounter procedure Ramandeep Tom [facility] Work Phone: Start: 03-30-2019 Patient encounter procedure Ramandeep Tom [facility] Work Phone: Start: 09-23-2018 Patient encounter procedure Ramandeep Tom [facility] Work Phone: Start: 11-24-2016 End: 11-24-2016 Emergency department patient visit Rigo Gaston Facility:[facility] Patient encounter procedure Ramandeep Tom Work Phone: BL-Ttqibkyya-RCBOY [place] [address] Work Phone: Procedures Date Procedure Procedure Detail Performing Clinician Start: 11-17-2024 Follow-up visit Follow-up MICHELLE MENCHACA Start: 10-26-2024 Mri spinal canal lumbar w/o & w/contr vikasl Dre Monte MD Work Phone: Start: 10-15-2024 Urnls dip stick/tablet rgnt auto w/o microscopy Michelle Menchaca MD Work Phone: Start: 03-01-2024 Dxa bone density study 1/> sites axial skel Ramandeep Tom DO Work Phone: Start: 03-01-2024 Mammography Keshawn 2 Start: 02-03-2024 Lipid 1996 panel - Serum or Plasma [facility] 1 Start: 12-01-2023 Colonoscopy Ramandeep Burnett O Work Phone: Start: 10-21-2023 End: 10-21-2023 Mri spinal canal thoracic w/o & w/contr vikasl Dre Monte MD Work Phone: Start: 11-12-2022 Urine culture No Primary Care Physician Start: 10-08-2022 Mri pelvis w/o & w/contrast material Dre Monte MD Work Phone: Start: 04-17-2023 Mammography Ramandeep Burnett O Work Phone: Start: 07-03-2022 Radiologic exam esophagus single contrast study Jitendra Montgomery MD Work Phone: Start: 05-15-2022 Radiologic exam swallow function contrast study Dre Monte MD Work Phone: Start: 10-16-2021 Microscopic observation [Identifier] in Cervix by Cyto stain Ramandeep Tom DO Work Phone: Start: 09-17-2021 Mri orbit face & neck w/o & w/contrast matrl Dre Monte MD Work Phone: Start: 07-05-2021 Adult depression screening assessment Dre Monte MD Work Phone: Start: 01-04-2021 Lipid 1996 panel - Serum or Plasma Ramandeep Tom DO Work Phone: Start: 09-19-2020 Echocardiography Ramandeep Tom Work Phone: Start: 11-18-2019 Mammography Ramandeep Burnett O Work Phone: Start: 10-04-2019 MG Breast screening Ramandeep Tom Start: 05-09-2017 Mammography Dre Monte MD Work Phone: Plan of Treatment Date Care Activity Detail Author Start: 11-30-2033 Screening for malign ant neoplasm of colon [facility] Start: 02-02-2029 Lipid panel [facility] Start: 02-02-2027 Diabetes Screening Diabetes Screenin [facility] Start: 10-16-2026 Screening for malign ant neoplasm of cervix [facility] Start: 01-04-2026 Lipid panel [facility] Start: 05-02-2025 COVID-19 Vaccine () COVID-19 Vaccine () [facility] Comment on above: Postponed from 01/17 (Other System Reasons) Start: 05-02-2025 COVID-19 Vaccine () COVID-19 Vaccine () [facility] Comment on above: Postponed from 01/17 (Other System Reasons) Start: 04-20-2025 End: 04-20-2025 Patient encounter procedure 04/20/2025 2:00 PM EST Office Visit [facility] [address] [facility] [address] [place] [phone] Michelle Menchaca MD [address] [facility], [facility] 1 [place], [place] [phone] [facility] Start: 03-01-2025 Screening for malign ant neoplasm of breast [facility] Start: 01-17-2025 Influenza vaccination [facility] Start: 12-06-2024 End: 12-06-2024 Patient encounter procedure 12/06/2024 1:30 PM EDT Office Visit [facility] [address] [place] [address] Elayne Sow PA-C [address] [place] [address] Medical massage, physical therapy [facility] Comment on above: Medical massage, phy sical therapy Start: 11-17-2024 End: 11-17-2024 Telemedicine consultation with patient 11/17/2024 3:30 PM EDT Telemedicine [facility] [address] [facility] [address] [place] [phone] Michelle Menchaca MD [address] [facility], [address] [place], [place] [address] [facility] Start: 11-15-2024 COVID-19 Vaccine (#1) COVID-19 Vacci ne (#1) [facility] Comment on above: Postponed from 04/03 (Other System Reasons) Start: 11-15-2024 Influenza vaccination Influenza Vacc ine (#1) [facility] Comment on above: Postponed from 01/17 (Patient Refused) Start: 11-04-2024 End: 11-04-2024 Patient encounter procedure 11/04/2024 3:00 PM EDT Office Visit [facility] [address] [place] [address] Dre Monte MD [address] [place] [address] MRI C, T, L, pelvis with contrast in 1 year in [place] followed by in person visit. [facility] Comment on above: MRI C, T, L, pelvis with contrast in 1 year in [place] followed by in person visit. Start: 10-16-2024 Screening for malign ant neoplasm of cervix [facility] Start: 10-15-2024 End: 10-22-2024 Bacteria identified in Urine by Culture [facility] Service Area Work Phone: Comment on above: Expected: 10/15/2024 (Approximate), Expires: 10/22/2024 Start: 10-15-2024 End: 10-15-2025 CBC W Auto Differential panel - Blood CBC and Auto Differential Lab Routine RUQ abdominal pain Expected: 10/15/2024 (Approximate), Expires: 10/15/2025 [facility] Work Phone: Comment on above: Expected: 10/15/2024 (Approximate), Expires: 10/15/2025 Start: 10-15-2024 End: 10-15-2025 Comprehensive metabolic 2000 panel - Serum or Plasma Comprehensive Metabolic Panel Lab Routine RUQ abdominal pain Expected: 10/15/2024 (Approximate), Expires: 10/15/2025 [facility] Work Phone: Comment on above: Expected: 10/15/2024 (Approximate), Expires: 10/15/2025 Start: 10-15-2024 End: 10-15-2025 US Abdomen RUQ US gallbladder Imaging Routine RUQ abdominal pain Expected: 10/15/2024, Expires: 10/15/2025 [facility] Work Phone: Comment on above: Expected: 10/15/2024 , Expires: 10/15/2025 Start: 08-19-2024 Medicare Annual Well ness Visit Medicare Annual Wellness Visit (AWV) [facility] Start: 08-05-2024 End: 08-05-2024 Patient encounter procedure 08/05/2024 1:00 PM EDT Office Visit [facility] [address] [place] [phone] Ramandeep Tom DO [address] [facility], [address] [place], [place] [address] [facility] Start: 03-16-2024 End: 03-16-2024 Patient encounter procedure 03/16/2024 11:00 AM EDT Appointment [address] [phone] [facility] Start: 03-01-2024 End: 03-01-2024 Patient encounter procedure [facility] Start: 02-27-2024 End: 08-18-2024 DXA Skeletal system Views for bone density XR DEXA bone density Imaging Routine Postmenopausal estrogen deficiency Expected: 02/27/2024, Expires: 08/18/2024 [facility] Work Phone: Comment on above: Expected: 02/27/2024 , Expires: 08/18/2024 Start: 02-19-2024 End: 01-15-2024 CBC panel - Blood by Automated count CBC Lab Routine Neurofibromatosis ([facility]/HCC) Expected: 02/19/2024 (Approximate), Expires: 01/15/2024 [facility] Work Phone: Comment on above: Expected: 02/19/2024 (Approximate), Expires: 01/15/2024 Start: 02-19-2024 End: 01-15-2024 Comprehensive metabolic 2000 panel - Serum or Plasma Comprehensive Metabolic Panel Lab Routine Neurofibromatosis (CMS/HCC) Expected: 02/19/2024 (Approximate), Expires: 01/15/2024 [facility] Work Phone: Comment on above: Expected: 02/19/2024 (Approximate), Expires: 01/15/2024 Start: 02-19-2024 End: 01-15-2024 Lipid 1996 panel - Serum or Plasma Lipid Panel Lab Routine Neurofibromatosis (CMS/HCC) Elevated LDL cholesterol level Expected: 02/19/2024 (Approximate), Expires: 01/15/2024 [facility] Work Phone: Comment on above: Expected: 02/19/2024 (Approximate), Expires: 01/15/2024 Start: 02-03-2024 End: 02-02-2025 CBC W Auto Differential panel - Blood CBC and Auto Differential Lab Routine Insomnia, unspecified type Neurofibromatosis (Multi) Expected: 02/03/2024, Expires: 02/02/2025 [facility] Work Phone: Comment on above: Expected: 02/03/2024 , Expires: 02/02/2025 Start: 02-03-2024 End: 02-02-2025 Comprehensive metabolic 2000 panel - Serum or Plasma Comprehensive Metabolic Panel Lab Routine Insomnia, unspecified type Neurofibromatosis (Multi) Expected: 02/03/2024, Expires: 02/02/2025 [facility] Work Phone: Comment on above: Expected: 02/03/2024 , Expires: 02/02/2025 Start: 02-03-2024 End: 02-02-2025 CT for calcium scoring WO contrast and CTA W contrast IV Heart and coronary arteries CT cardiac scoring wo IV contrast Imaging Routine Screening for cardiovascular condition Expected: 02/03/2024, Expires: 02/02/2025 [facility] Service Area Work Phone: Comment on above: Expected: 02/03/2024 , Expires: 02/02/2025 Start: 02-03-2024 End: 02-02-2025 Lipid 1996 panel - Serum or Plasma Lipid Panel Lab Routine Elevated LDL cholesterol level Expected: 02/03/2024, Expires: 02/02/2025 [facility] Work Phone: Comment on above: Expected: 02/03/2024 , Expires: 02/02/2025 Start: 02-03-2024 End: 02-03-2024 Patient encounter procedure 02/03/2024 2:00 PM EDT Office Visit [facility] [address] [place] [phone] Ramandeep Tom DO [address] [facility], [address] [place] [address] [facility] Start: 01-18-2024 Covid-19 Vaccine ( season) Covid-19 Vaccine ( season) [facility] Start: 01-18-2024 Influenza vaccination [facility] Start: 01-06-2024 End: 01-06-2024 Patient encounter procedure 01/06/2024 1:45 PM EDT Office Visit [facility] [address] [place] [id number] Candido Chavez MD [address] [place] [address] [employer] Comment on above: [employer] Start: 11-28-2023 End: 11-28-2023 ambulatory 11/28/2023 1:20 PM EDT [facility] [address] [place] [address] Mis Bethea, TEXTILE BROKER.FASHION ILLUSTRATOR [address] [place] [address] I was referred by Dr. Horan Re[facility] Comment on above: I was referred by Dr Regina Horan Start: 10-23-2023 End: 10-23-2023 Patient encounter procedure 10/23/2023 8:30 AM EDT Office Visit [facility] [address] [place] [address] Dre Monte MD [address] [facility] [address] [place] [address] MRI Follow Up [facility] Comment on above: MRI Follow Up Start: 09-03-2023 Mammography Mammogram Screening [facility] Start: 09-03-2023 Screening for malign ant neoplasm of breast [facility] Start: 08-19-2023 End: 08-18-2024 Colonoscopy study Colonoscopy Screening; High Risk Patient; dad with hx of colon cancer Endoscopy Routine Screening for colon cancer Expected: 08/19/2023, Expires: 08/18/2024 [facility] Work Phone: Comment on above: Expected: 08/19/2023 , Expires: 08/18/2024 Start: 08-19-2023 End: 10-18-2024 DBT Breast - bilateral BI mammo bilateral screening tomosynthesis Imaging Routine Other screening mammogram Expected: 08/19/2023, Expires: 10/18/2024 [facility] Work Phone: Comment on above: Expected: 08/19/2023 , Expires: 10/18/2024 Start: 07-31-2023 Medicare Annual Well ness Visit Medicare Annual Wellness Visit (AWV) [facility] Start: 07-17-2023 End: 01-15-2024 CBC panel - Blood by Automated count CBC Lab Routine Neurofibromatosis (CMS/HCC) Expected: 07/17/2023 (Approximate), Expires: 01/15/2024 [facility] Work Phone: Comment on above: Expected: 07/17/2023 (Approximate), Expires: 01/15/2024 Start: 07-17-2023 End: 01-15-2024 Comprehensive metabolic 2000 panel - Serum or Plasma Comprehensive Metabolic Panel Lab Routine Neurofibromatosis (CMS/HCC) Expected: 07/17/2023 (Approximate), Expires: 01/15/2024 [facility] Work Phone: Comment on above: Expected: 07/17/2023 (Approximate), Expires: 01/15/2024 Start: 07-17-2023 End: 01-15-2024 Lipid 1996 panel - Serum or Plasma Lipid Panel Lab Routine Healthcare maintenance Expected: 07/17/2023 (Approximate), Expires: 01/15/2024 [facility] Work Phone: Comment on above: Expected: 07/17/2023 (Approximate), Expires: 01/15/2024 Start: 07-17-2023 End: 07-17-2023 Patient encounter procedure 07/17/2023 1:00 PM EST Office Visit [facility] [address] [place] [id number] Ramandeep Tom DO [address] [facility], [address] [place], [place] [id number] [facility] Start: 05-19-2023 Behavioral Health Screening Behavioral Health Screening [facility] Start: 01-27-2023 End: 01-27-2023 Patient encounter procedure 01/27/2023 2:00 PM EDT Office Visit [facility] [address] [place] [address] Fabiola Gold MD [address] [facility], [address] [place], [place] [id number] [facility] Start: 01-17-2023 Covid-19 Vaccine ( season) Covid-19 Vaccine ( season) [facility] Start: 01-17-2023 Influenza vaccination [facility] Start: 07-29-2022 End: 09-29-2023 BI mammo bilateral screening tomosynthesis BI mammo bilateral screening tomosynthesis Imaging Routine Breast cancer screening by mammogram Expected: 07/29/2022, Expires: 09/29/2023 [facility] Work Phone: Comment on above: Expected: 07/29/2022 , Expires: 09/29/2023 Start: 07-29-2022 End: 01-30-2024 Colonoscopy Colonoscopy Endoscopy Routine Screening for colon cancer Expected: 07/29/2022, Expires: 01/30/2024 [facility] Service Area Work Phone: Comment on above: Expected: 07/29/2022 , Expires: 01/30/2024 Start: 07-05-2022 Adult depression screening assessment DEPRESSION SCREENING [facility] Start: 06-25-2022 Patient encounter procedure MCRANNUAL, Provider: Ramandeep Tom, Status: Pen, Time: 1:30 PM [facility] Work Phone: Start: 05-31-2022 End: 05-23-2023 Echocardiography ECHO Cardiology Routine Other heart disorders in diseases classified elsewhere Neurofibromatosis, unspecified (HCC) Expected: 05/31/2022, Expires: 05/23/2023 [facility] Work Phone: Comment on above: Expected: 05/31/2022 , Expires: 05/23/2023 Start: 05-19-2022 DEPRESSION ASSESSMENT DEPRESSION ASS ESSMENT [facility] Start: 05-09-2022 PAP TESTING PAP TESTING [facility] Start: 05-09-2022 Screening for malign ant neoplasm of cervix [facility] Start: 03-12-2022 End: 05-12-2022 VITAMIN B1 (THIAMINE), WHOLE BLOOD [facility] Work Phone: Comment on above: Expected: 03/12/2022 , Expires: 05/12/2022 Start: 03-06-2022 EPVRETINA, Provider: Parmjit Howard, Status: Pen, Time: 1:00 PM EPVRETINA, Provider: Parmjit Howard, Status: Pen, Time: 1:00 PM [facility] Work Phone: Start: 01-17-2022 Influenza vaccination C [facility] Start: 10-16-2021 FUV, Provider: Ramandeep Tom, Status: Pen, Time: 2:00 PM FUV, Provider: Ramandeep Tom, Status: Pen, Time: 2:00 PM [facility] Work Phone: Start: 09-21-2021 EPVRETINA, Provider: Parmjit Howard, Status: Pen, Time: 1:00 PM EPVRETINA, Provider: Parmjit Howard, Status: Pen, Time: 1:00 PM CH-Mbttlmekbnvil-N [address] Work Phone: Start: 08-31-2021 EPVRETINA, Provider: Parmjit Howard, Status: Pen, Time: 1:00 PM EPVRETINA, Provider: Parmjit Howard, Status: Pen, Time: 1:00 PM ZK-Nvwtvaoofnlse-A [address] Work Phone: Start: 07-31-2021 ECHO, Provider: CHRISTINA SCHMITT HHVI 2,MG CARD, Status: Pen, Time: 9:50 AM ECHO, Provider: CHRISTINA SCHMITT HHVI 2,MG CARD, Status: Pen, Time: 9:50 AM BX-Bkpdkysmbttpj-D [address] Work Phone: Start: 06-29-2021 EPVDILATED, Provider : Parmjit Howard, Status: Pen, Time: 1:30 PM EPVDILATED, Provider: Parmjit Howard, Status: Pen, Time: 1:30 PM [facility] Work Phone: Start: 05-19-2021 DEPRESSION ASSESSMENT DEPRESSION [facility] Start: 05-03-2021 VIRFUVHOME, Provider : Michael Stanton, Status: Pen, Time: 10:30 AM VIRFUVHOME, Provider: Michael Stanton, Status: Pen, Time: 10:30 AM YL-Tpywgkmxp-Tyxqj an Work Phone: Start: 05-03-2021 VIRFUVALDAIRE, Provider : Digna Caruso, Status: Pen, Time: 10:30 AM VIRFUVHOME, Provider: Digna Caruso, Status: Pen, Time: 10:30 AM MG-Vascular Surgery-LAB [facility] Work Phone: Start: 04-03-2021 VIRFUVALDAIRE, Provider : Digna Caruso, Status: Pen, Time: 10:00 AM VIRFUVHOME, Provider: Digna Caruso, Status: Pen, Time: 10:00 AM DZ-Djjrtkyfimisg-[address] Work Phone: Start: 03-09-2021 EPVRETINA, Provider: Parmjit Howard, Status: Pen, Time: 1:00 PM EPVRETINA, Provider: Parmjit Howard, Status: Pen, Time: 1:00 PM IO-Lsjzbmiwd-KNQPB [place] [address] Work Phone: Start: 02-06-2021 VIRFUVALDAIRE, Provider : Digna Caruso, Status: Pen, Time: 10:30 AM VIRFUVHOME, Provider: Digna Caruso, Status: Pen, Time: 10:30 AM PM-Owumxrnoq-Xcmwv an Work Phone: Start: 01-16-2021 VIRFUVHOME, Provider : Digna Caruso, Status: Pen, Time: 9:00 AM VIRFUVHOME, Provider: Digna Caruso, Status: Pen, Time: 9:00 AM [facility] Work Phone: Start: 01-04-2021 Patient encounter procedure MCRANNUAL, Provider: Ramandeep Tom, Status: Pen, Time: 2:50 PM QL-Nxnmtusqn-ZBBTH [facility] [address] Work Phone: Start: 11-17-2020 Screening for malign ant neoplasm of breast Mammogram [facility] Start: 2020 Pneumococcal vaccination Pneum ococcal Vaccine (1 of 1 - PCV) [facility] Start: 2020 Pneumococcal Vaccine : 50+ (1 of 1 - PCV) Pneumococcal Vaccine: 50+ (1 of 1 - PCV) [facility] Start: 2020 SHINGRIX VACCINE (1 of 2) SHINGRIX VACCINE (1 of 2) [facility] Start: 2020 Zoster Vaccines (1 of 2) Zoster Vacc joshua (1 of 2) [facility] Start: 05-09-2018 Mammography MAMMOGRAM [facility] Start: 10-02-2015 COLOGUARD (FIT-DNA) COLOGUARD (FIT-D NA) [facility] Start: 10-02-2015 Colonoscopy COLONOSCOPY [facility] Start: 10-02-2015 COLORECTAL CANCER SCREENING COLORECTAL CANCER SCREENING [facility] Start: 10-02-[address] COLONOGRAPHY [facility] Start: 10-02-2015 DIABETES SCREEN DIABETES SCREEN [facility] Start: 10-02-2015 Diabetes Screening Diabetes Screenin g [facility] Start: 10-02-2015 FECAL OCCULT BLOOD FECAL OCCULT BLOO D [facility] Start: 10-02-2015 Lipid 1996 panel - S abdulkadir or Plasma Lipid Screening [facility] Start: 10-02-2015 LIPID SCREEN LIPID SCREEN [facility] Start: 10-02-2015 Screening for malign ant neoplasm of colon [facility] Start: 10-02-2015 SIGMOIDOSCOPY SIGMOIDOSCOPY [facility] Start: 04-11-2011 HPV TESTING HPV TESTING [facility] Start: 04-11-2011 Screening for malign ant neoplasm of cervix HPV Testing [facility] Start: 01-17-1999 Medicare Annual Well ness Visit Medicare Annual Wellness Visit [facility] Start: 1992 DTaP/Tdap/Td Vaccine s (1 - Tdap) DTaP/Tdap/Td Vaccines (1 - Tdap) [facility] Start: 10-02-1991 Screening for malign ant neoplasm of cervix [facility] Start: 1989 Hepatitis B Vaccine (1 of 3 - 19+ 3-dose series) Hepatitis B Vaccine (1 of 3 - 19+ 3-dose series) [facility] Start: 1989 Hepatitis B Vaccines (1 of 3 - 19+ 3-dose series) Hepatitis B Vaccines (1 of 3 - 19+ 3-dose series) [facility] Start: 1989 Urine microalbumin profile [facility] Start: 1988 Anxiety Screening Anxiety Screening [facility] Start: 1988 COVID-19 Vaccine (#1) COVID-19 Vacci ne (#1) [facility] Start: 1988 Depression Screening Depression Scre ening [facility] Start: 1988 HEPATITIS C SCREENING HEPATITIS C SC [facility] Start: 1988 Hepatitis C screening Hepatitis C Sc [facility] Start: 1988 HIV SCREENING HIV SCREENING [facility] Start: 1988 HIV screening HIV Screening [facility] Start: 1977 DTaP/Tdap/Td Vaccine s (1 - Tdap) DTaP/Tdap/Td Vaccines (1 - Tdap) [facility] Start: 10-02-1975 COVID-19 VACCINE (#1) COVID-19 VACCI NE (#1) [facility] Start: 10-02-1975 COVID-19 VACCINE (1) COVID-19 VACCIN E (1) [facility] Start: 10-02-1971 MMR Vaccines (1 of 1 - Standard series) MMR Vaccines (1 of 1 - Standard series) [facility] Start: 04-03-1971 COVID-19 VACCINE (#1) COVID-19 VACCI NE (#1) [facility] Start: 1970 HEPATITIS B (1 of 3 - 3-dose series) HEPATITIS B (1 of 3 - 3-dose series) [facility] Start: 1970 Hepatitis B Vaccine (1 of 3 - 3-dose series) Hepatitis B Vaccine (1 of 3 - 3-dose series) [facility] Start: 1970 Hepatitis B Vaccines (1 of 3 - 3-dose series) Hepatitis B Vaccines (1 of 3 - 3-dose series) [facility] Start: 1970 HIV screening HIV Screening [facility] Start: 1970 Medicare Annual Well ness Visit Medicare Annual Wellness Visit (AWV) [facility] Start: 1970 Screening for malign ant neoplasm of colon [facility] End: 03-16-2024 CT for calcium scoring WO contrast and CTA W contrast IV Heart and coronary arteries [facility] Service Area Work Phone: Comment on above: Once for 1 Occurrenc es starting 03/16/2024 until 03/16/2024 End: 03-01-2024 DBT Breast - bilateral [facility] Area Work Phone: Comment on above: Once for 1 Occurrenc es starting 03/01/2024 until 03/01/2024 End: 05-23-2023 ECG COMPLETE ECG COMPLETE ECG Routine Neurofibromatosis, unspecified (HCC) Neurofibroma Other heart disorders in diseases classified elsewhere 1 Occurrences starting 05/23/2022 until 05/23/2023 [facility] Work Phone: Comment on above: 1 Occurrences starti ng 05/23/2022 until 05/23/2023 End: 11-22-2024 MR Brain WO and W contrast IV MRI BRAIN WO/W IVCON Radiology Routine Nerve sheath tumor 1 Occurrences starting 10/24/2023 until 11/22/2024 [facility] Work Phone: Comment on above: 1 Occurrences starti ng 10/24/2023 until 11/22/2024 End: 11-25-2024 MR Cervical spine WO and W contrast IV MRI CERVICAL SPINE WO/W IVCON Radiology Routine 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 1 Occurrences starting 10/27/2023 until 11/25/2024 [facility] Work Phone: Comment on above: 1 Occurrences starti ng 10/27/2023 until 11/25/2024 End: 11-25-2024 MR Lumbar spine WO and W contrast IV MRI LUMBAR SPINE WO/W IVCON Radiology Routine 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 1 Occurrences starting 10/27/2023 until 11/25/2024 [facility] Comment on above: 1 Occurrences starti ng 10/27/2023 until 11/25/2024 End: 11-25-2024 MR Thoracic spine WO and W contrast IV MRI THORACIC SPINE WO/W IVCON Radiology Routine 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 1 Occurrences starting 10/27/2023 until 11/25/2024 [facility] Comment on above: 1 Occurrences starti ng 10/27/2023 until 11/25/2024 OOB Internal Tracking OOB Gun Welder al Tracking Lab Routine Medication management Insomnia, unspecified type 07/29/2022 3:10 PM [facility] Work Phone: Opiate/Opioid/Benzo Extended Prescription Compliance Opiate/Opioid/Benzo Extended Prescription Compliance Lab Routine Medication management Insomnia, unspecified type 07/29/2022 3:10 PM [facility] Work Phone: OPIATE/OPIOID/BENZO PRESCRIPTION COMPLIANCE OPIATE/OPIOID/BENZO PRESCRIPTION COMPLIANCE Lab Routine Medication management Insomnia, unspecified type 07/29/2022 3:10 PM [facility] Work Phone: End: 06-22-2023 Radiologic exam esophagus single contrast study XR ESOPHAGRAM Radiology Routine Zenker diverticulum 1 Occurrences starting 05/23/2022 until 06/22/2023 [facility] Work Phone: Comment on above: 1 Occurrences starti ng 05/23/2022 until 06/22/2023 End: 05-15-2023 Radiologic exam swallow function contrast study XR MODIFIED BARIUM SWALLOW W SPEECH THERAPY Radiology Routine 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 1 Occurrences starting 04/15/2022 until 05/15/2023 [facility] Work Phone: Comment on above: 1 Occurrences starti ng 04/15/2022 until 05/15/2023 SWAB COLLECTION SPECIMEN SWAB CO LLECTION SPECIMEN Lab Routine Benign neoplasm of peripheral nerve sheath Ordered: 11/14/2021 [facility] Work Phone: Comment on above: Ordered: 11/14/2021 End: 10-22-2024 US Abdomen RUQ [facility] Service Area Work Phone: Comment on above: Once for 1 Occurrenc es starting 10/22/2024 until 10/22/2024 Zolpidem [Mass/volum e] in Urine by Confirmatory method Zolpidem Confirmation, Urine Lab Routine Medication management Insomnia, unspecified type 07/29/2022 3:10 PM EDT [facility] Work Phone: [facility] Work Phone: [facility] NEGATED: Highlighted row has been ruled out! Planned Goals not documented [facility] Work Phone: Payers Date Payer Category Payer Self-pay [id number] 2022 Medicaid [id number] 2022 Medicaid [id number] 2016 Unknown 1999 Medicare MEDICARE MEDICAR E A AND B [id number] 1999-Present [phone] [address] [address] [place] [address] Medicare [id number] 1999 Medicare [id number] 1999 Medicare [id number] 1970 Unknown [id number] 1970 Unknown [id number] 1970 Unknown [id number] 1970 Unknown [id number] 1970 Unknown [id number] 1970 Unknown [id number] 1970 Unknown [id number] 1970 Unknown [id number] 1970 Unknown [id number] 1970 Unknown [id number] 1970 Unknown [id number] Unknown COMMERCIAL OTHER [id number] Unknown [id number] Social History Date Type Detail Facility Assertion Tobacco smoking consumption unknown (finding) [facility] Work Phone: Start: 12-08-2013 End: 07-29-2022 Tobacco smoking status NHIS Never smoked tobacco [facility] Start: 08-22-2021 End: 11-04-2024 Alcohol intake Current non-drinker of alcohol (finding) [facility] Start: 1970 Sex Assigned At Not on file C [facility] Start: 08-12-2021 End: 03-16-2024 Exposure to SARS-CoV-2 (event) Not sure [facility] Start: 1970 Sex Assigned At Female C [facility] Start: 12-08-2013 End: 07-29-2022 Tobacco use and exposure Smokeless tobacco non-user [facility] Work Phone: Start: 11-12-2022 Tobacco smoking status NHIS Unknown if ever smoked [facility] Start: 01-14-2023 End: 11-10-2024 Alcohol intake Ex-drinker (finding) [facility] Work Phone: Start: 01-14-2023 End: 11-17-2024 History of Social function [facility] Work Phone: Start: 01-14-2023 End: 11-17-2024 Tobacco use panel [facility] Work Phone: Start: 09-16-2021 Gender identity Identifies as female gender (finding) [facility] Work Phone: Start: 09-16-2021 Sexual orientation Heterosexual (fin ding) [facility] Work Phone: Adult Depression Screening Assessment 0 [facility] How often to you hav e a drink containing alcohol? Monthly or less [facility] Work Phone: NEGATED: Highlighted rowStart: NINF History of tobacco use Passive smoker [facility] Work Phone: Medical Equipment Procedure Code Equipment Code Equipment Origin al Text Equipment Identifier Dates fluorescein 1 mg 1 Strip (FLUORETS) Start: 01-16-2024 End: 01-17-2024 Functional Status Date Assessment Result Facility 11-17-2024 Generalized anxiety disorder 7 item (REYMUNDO-7) [facility] Work Phone: 11-17-2024 Patient Health Questionnaire 2 item (PHQ-2) [Reported] [facility] Work Phone: 10-16-2021 PHQ-9 [id number] In Remission (0-4) [facility] Work Phone: 01-04-2021 PHQ-9 Adult Depressi on Score PHQ-9 Adult Depression Score 2 [facility] Work Phone: Comment on above: Q1: 0, Q2: 0, Q3: 2, Q4: 0, Q5: 0, Q6: 0, Q7: 0, Q8: 0, Q9: 0, 10-04-2019 IO PHQ9 IO PHQ9 1 [facility] Work Phone: 11-10-2014 Are you deaf, or do you have serious difficulty hearing No 11/10/2014 7:06 PM Macrina Rico RN [facility] Work Phone: 11-10-2014 Are you blind, or do you have serious difficulty seeing, even when wearing glasses No 11/10/2014 7:06 PM Macrina Rico RN No [facility] 11-10-2014 Do you have serious difficulty walking or climbing stairs No 11/10/2014 7:06 PM Macrina Rcio RN No [facility] 11-10-2014 Do you have difficul ty dressing or bathing No 11/10/2014 7:06 PM Macrina Rico RN No [facility] 11-10-2014 Because of a physica l, mental, or emotional condition, do you have difficulty doing errands alone such as visiting a physician's office or shopping No 11/10/2014 7:06 PM Macrina Rico RN No [facility] Work Phone: NEGATED: Highlighted row Functional performance Functional status health issues are not documented Disease [facility] Work Phone: Mental Status Date Assessment Result Facility 11-10-2014 Because of a physical, mental, or emotional condition, do you have serious difficulty concentrating, remembering, or making decisions No 11/10/2014 7:06 PM EDT Macrina Bajwa RN No [facility] NEGATED: Highlighted row Cognitive function [Interpretation] Cognitive status health issues are not documented Disease [facility] Work Phone: Clinical Notes 08-22-2021 to 11-17-2024 Michelle Menchaca MD - 11/17/2024 3:30 PM Dre Nolasco MD - 11/04/2024 3:00 PM Morelia Edward OCCA - 11/04/2024 2:58 PM Soha Pink RT(R) - 10/26/2024 8:00 AM EDTPatient Instructions Note Date & Type Note Facility 11-17-2024 History of Present illness Narrative Virtual or Telephone Consent An interactive audio and video telecommunication system which permits real time communications between the patient (at the originating site) and provider (at the distant site) was utilized to provide this telehealth service. Verbal consent was requested and obtained from Sandra Sanchez on this date, 11/17/24 for a telehealth visit and the patient's location was confirmed at the time of the visit. Subjective Patient ID: Sandra Sanchez is a 54 y.o. female who presents for Follow-up. HPI Followup of lamotirgine and doxepin weaning -- states doing fine , hasn't noticed any increase in pain sxs Has another month , see med list for weaning instruction Followup of Abd pain, constipation ;nl ultras, did she do CT , Followup of Lymphedema , did she see PT -not yet, appt is at end of November I reviewed recent neuro-oncology note Review of Systems Objective LMP 12/04/2020 Physical Exam Pertinent exam : appears well, no distress Assessment/Plan Problem List Items Addressed This Visit None Visit Diagnoses Medication management - Primary RUQ abdominal pain Medication management: Patient has weaned Lamictal and Sinequan over the last month. Tolerating the change. Continue to wean until she is off both medications. She has not had an increase in her chronic pain. She will notify me if this occurs. We discussed Cymbalta. Has taken this medicine for a long time and is not sure she wants to continue it. States she isn't sure its doing much We will wait to make that decision until after she is off the Lamictal and Sinequan Abdominal pain currently resolved does not need to do the lab work that had previously ordered Follow-up will plan for follow-up in March at that time she will be due for routine lab work Patient is aware to contact me in the meantime if pain issues come up and/or has questions/ concerns about the weaning process Mammo due February Labs due prior to next appt Alessandro Menchaca MD documented in this encounter [facility] Work Phone: 11-04-2024 History of Present illness Narrative Images from the original note were not included. Brain Tumor Neuro-[facility]cology Center Established Patient, Return Visit Referred by Dr. 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 Zapata is a pleasant 50 yo Woman with PMH of nerve sheath tumors who is referred to our clinic to establish care. History detailed below. She has been started on Selumetinib by Dr. 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 She experienced significant dermatologic AEs which led to her PCP reducing her dose by 50% to mitigate those AEs. She continues to report problems with skin rash. She takes Tylenol-Codeine for pain. She recently experienced LLE swelling, went to local ER and work up was negative for DVT or cellulitis. No improvement in pain while on Selumeitnib. She is independent in all ADLs and iADLs. She has a 27 yo daughter with no similar symptoms. No other family members with neurologic or genetic d/o. Parts of HPI have been retrieved from prior notes with appropriate modifications as below NF - Saw Dr. Lilly in the past, was told she has unspecified neurofibromatosis type - She had surgery at 2 locations; right arm, and right inframammilary region, both > 20 years ago, was told there were fibromas no records available. 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 - no problems with anxiety: panic attacks from childhood Cognitive or Speech - none Vision - eye floater started when she started Selumetinib - no evidence of optic glioma ENT - no hearing problem - no dizziness or vertigo - occasional tinnitus: both ears. 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 - no abnormal bleeding or discharge Endocrine - no problems - no high blood pressure - no palpations Skin - no neurofibromas - one cafe au lait spots - no freckling FH - no family member with NF (neither parents, aunts uncles. 27 year daughter is unaffected. Interval History 03/12/2022 Sandra is doing well, she is happy that her hair has been growing since she stopped the Koseulgo. She believe cymbalta has helped with her pain but sometimes she gets exacerbation after physical exertion. No falls, new growth, no worsening swallowing issues, no changes in urine or bowel control. No other complaints. 10/15/2022 Doing well, no new pain, swallowing or balance problems, no falls, new focal weakness or sensory deficits 10/23/2023: Sandra presents today for 1 year follow up. She is reporting some worsening neck pain that she describes as stabbing pain 11/04/2024: Sandra presents today for 1 year follow up with new MRI. She is doing good. Weaning herself off of Lamictal with help of her PCP. Has to drink a lot to get food down. Pain in her back when laying down mainly from her left shoulder area. No new lumps or bumps. Pain with resistance in both wrist no other pain.. Sometimes drops items from hands. Last Chemo: Selumetinib, was initiated by Dr. Stanton at fall 2020, dose reduced due to side effects and eventually stopped when she came to [facility] August 2021. 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 Panic attacks Past Surgical History: PAST SURGICAL HISTORY Procedure Laterality Date DELIVERY ONLY 1992 , low cervical EXC NEUROFIBROMA/NEUROLEMMOMA CUTAN NRV 1989, 1993, TONSILLECTOMY & ADENOIDECTOMY <AGE 12 Tonsil/adenoidectomy Family History: FAMILY HISTORY Problem Relation Age of Onset No Known Problems Mother Arthritis Father other (MVP) Father Mitral valve prolapse with tachycardia No Known Problems Sister No Known Problems Brother Cancer Maternal Grandfather bladder Social History Tobacco Use Smoking status: Never Smokeless tobacco: Never Substance Use Topics Alcohol use: No Drug use: Yes Types: Marijuana Allergies: Venom-Wasp, Gabapentin, Koselugo [Selumetinib], Methadone, Tramadol, and Tree And Shrub Pollen Current Outpatient Medications Medication Sig baclofen 5 mg tablet Take 1.5 tablets by mouth three times a day as needed (muscle spasms or nerve pain). DULoxetine (CYMBALTA) 60 mg capsule take 1 capsule by mouth at bedtime zolpidem (AMBIEN) 10 mg tab Take 10 mg by mouth at bedtime as needed (insomnia). lamoTRIgine 150 mg tablet Take 0.5 tablets by mouth once daily. (Patient taking differently: Take 75 mg by mouth daily at bedtime.) DOXEPIN 100 MG CAP Take one(1) tablet daily at bedtime. (Patient taking differently: Take 150 mg by mouth daily at bedtime.) No current facility-administered medications for this visit. Review of systems: Negative except HPI Objective Physical Exam: BP 115/75 Pulse 72 Temp 37.1 C (98.7 F) (Oral) Resp 17 Wt 65.9 kg (145 lb 4.5 oz) LMP (LMP Unknown) SpO2 97% BMI 23.81 kg/m BP 115/75 Pulse 72 Temp 37.1 C (98.7 F) (Oral) Resp 17 Wt 65.9 kg (145 lb 4.5 oz) LMP (LMP Unknown) SpO2 97% BMI 23.81 kg/m General appearance: well appearing, in no acute distress, alert NEUROLOGICAL EXAM: General: Awake, alert, speech fluent, comprehension, naming, repetition intact. Short and grants administrator memory intact. CN: PERRL, EOMI without nystagmus, VFF to confrontation, facial sensation and strength are normal and symmetric, hearing is intact to finger rub bilaterally, palate and tongue movements are intact and symmetric. Motor: Normal tone, bulk and strength bilaterally. Reflexes: 2/4 and symmetric, plantar stimulation is flexor. Coordination: FNF, MIAN, HTS intact. Sensation: diminished PP, LT, and Temp in RLE to knee level Gait: Able to walk on toes, heels, and tandem with mild difficulty but did not require assistance. Romberg normal. Karnofsky performance status: 80 - Normal activity with effort, some signs or symptoms of disease. ECOG performance status: 1 - Restricted in physically strenuous activity but ambulatory and able to carry out work of a light or sedentary nature, e.g., light house work or office work. 06/21/2022 PHQ 2 and 9 Total Scores PHQ-2 Score 0 PHQ-9 Score 0 Labs: Latest Ref Rng & Units 11/22/2003 CBC WBC 4.0 - 11.0 k/uL 5.13 RBC 4.2 - 5.4 M/uL 4.19 Hemoglobin 12.0 - 16.0 g/dL 13.3 Hematocrit 37 - 47 % 39.2 MCV 80 - 100 fL 93.6 MCH 27 - 34 pG 31.7 MCHC 32 - 36 % 33.9 RDW-CV 11.7 - 15.0 % 12.5 Platelet Count 150 - 400 K/uL 155 MPV 7.3 - 11.1 fL 11.8 Latest Ref Rng & Units 09/25/2001 11/22/2003 CMP Sodium 132 - 148 mmol/L 140 139 Potassium 3.5 - 5.0 mmol/L 4.9 4.0 Chloride 98 - 110 mmol/L 100 100 CO2 24 - 32 mmol/L 35 30 Glucose 65 - 110 mg/dL 103 99 BUN 8 - 25 mg/dL 11 16 Creatinine 0.7 - 1.4 mg/dL 0.8 0.4 Protein, Total 6.0 - 8.4 g/dL 7.3 8.8 Albumin 3.5 - 5.0 g/dL 4.3 4.4 Calcium 8.5 - 10.5 mg/dL 10.1 9.7 Bilirubin, Total 0.0 - 1.5 mg/dL 0.5 0.3 AST 7 - 40 U/L 22 31 ALT 0 - 45 U/L 13 26 Alkaline Phosphatase 40 - 150 U/L 114 89 Final Pathology: N/A Imaging: MRI Report MRI BRAIN WO/W IVCON Exam End: 12/28/2019 5:42 PM (Final result) Narrative: Patient Name: SANDRA SANCHEZ STUDY: MRI BRAIN W/WO CONTRAST; 12/28/2019 5:42 pm INDICATION: Neurofibromatosis diagnostic/mrt sherry 13ml multihance. COMPARISON: None. ACCESSION NUMBER(S): [id number] ORDERING CLINICIAN: MICHAEL STANTON TECHNIQUE: The brain was studied in the sagittal, axial and coronal planes utilizing FLAIR, T1 and T2 weighted images. FINDINGS: There is a normal-size ventricular system. There is no evidence of intracranial mass or extra-axial collection. The skull base, paranasal sinuses and orbital structures are unremarkable. Diffusion weighted images and associated ADC maps of the brain were unremarkable. There is no evidence of diffusion restriction to suggest the presence of acute infarction. Gradient echo T2 weighted images fail to demonstrate hemosiderin deposition or other evidence of hemorrhage. Following intravenous injection of 13 cc MultiHance,there is no abnormal enhancement. Thin section sagittal and coronal T1 weighted images of the brain were also performed with 3-D reconstruction in multiple planes. There is no evidence of neuronal migrational abnormality or heterotopic zuniga matter. The temporal horns and temporal lobe zuniga matter are unremarkable. IMPRESSION: * There is no evidence of mass, infarction or hemorrhage. THIS EXAMINATION WAS INTERPRET[place] [facility] [place] prior MRIs, innumerable peripheral nerve sheath tumors in paraspinal, pelvic, and LE areas. No vestibular schwannomas or optic pathway gliomas. MRI Spine Report MRI LUMBAR SPINE WO/W IVCON Exam End: 10/26/2024 9:09 AM (Final result) Narrative: * * *Final Report* * * DATE OF EXAM: Oct 26 2024 9:09AM RADHA [id number] - MRI LUMBAR SPINE WO/W IVCON / PROCEDURE REASON: multiple diagnoses * * * * Physician Interpretation * * * * EXAMINATION: MRI CERVICAL SPINE WO/W IVCON, MRI LUMBAR SPINE WO/W IVCON, MRI THORACIC SPINE WO/W IVCON CLINICAL HISTORY: Nerve sheath tumor; neurofibromatosis status post selumetinib TECHNIQUE: Routine cervical, thoracic, and lumbosacral spine MR protocol without and with intravenous gadolinium. Contrast: 7 mL Elucirem IV COMPARISON: Complete spine MRI, 10/21/2023 and 10/08/2022 RESULT: Counting reference: Craniocervical and lumbosacral junctions. For the purposes of this report, L4-5 is considered the level of the iliac crest and assume there are 5 lumbar-type vertebrae. Anatomic variant: None. Localizer images: T2 hyperintense renal cysts. Additional well-circumscribed T2 hyperintense soft tissue nodules, for example in the right greater than left chest wall, likely represent additional neurofibromas. CERVICAL: Alignment: Reversal normal cervical lordosis with mild anterolisthesis at C2-3 and C3-4, similar to previous. Craniocervical junction: Craniocervical junction is normal. Cord: The cervical spinal cord is within normal limits of signal intensity and morphology. No abnormal enhancement. Bone marrow signal/fracture: Degenerative endplate changes without associated marrow edema or enhancement. No focal marrow lesion. No evidence of prior fracture. Cervical soft tissues: T2 hyperintense enhancing soft tissue nodules, the largest measuring up to 2.9 x 2.3 x 6.1 cm in the left carotid space, are similar to previous. No extension to the spinal canal. Canal and foramina: C2-3: Disc osteophyte complex without canal or foraminal narrowing. C3-4: Disc osteophyte complex with mild spinal canal narrowing, similar to previous. C4-5: Disc osteophyte complex with mild spinal canal narrowing, similar to previous. C5-6: Disc osteophyte complex, ligamentum flavum thickening, and facet and uncovertebral hypertrophy with moderate spinal canal narrowing as well as mild right and moderate left neural foramen narrowing, similar to previous. C6-7: Disc osteophyte complex, ligamentum flavum thickening, and facet and uncovertebral hypertrophy with mild spinal canal narrowing, similar to previous. C7-T1: No canal or foraminal narrowing. THORACIC: Alignment: Alignment is anatomic. Cord: The thoracic spinal cord is within normal limits of signal intensity and morphology. No abnormal enhancement. Bone marrow signal/fracture: Degenerative endplate changes without associated marrow edema or enhancement. A few small T1 hyperintense nodules may represent focal fatty marrow or benign hemangiomas, no other focal marrow lesion. No evidence of prior fracture. Thoracic soft tissues: T2 hyperintense enhancing soft tissue nodules most pronounced in the upper thoracic spine are similar to previous. For example, a 2.3 x 4 x 1 cm nodule at the level of T2 (series 21, image 7) and a 3.3 x 2.9 cm nodule at the level of T3 (image 21) are unchanged from previous. No enlarging masses identified. No extension to the spinal canal. Canal and foramina: No significant thoracic canal or foraminal stenosis. LUMBAR: Alignment: Alignment is anatomic. Bone marrow signal/fracture: Degenerative endplate changes with associated mild marrow edema at L2-3. No focal marrow lesion. No evidence of prior fracture. Conus: The visualized spinal cord is normal in morphology and signal intensity. Questionable enhancement along the cauda equina nerve roots inferiorly is similar to previous and may be related to small neurofibromas. Paraspinal soft tissues: Innumerable T2 hyperintense enhancing retroperitoneal and paraspinal nodules, including partially visualized nodules extending to the right greater than left sacral foramina, are similar to previous. No new or enlarging nodule is identified. No extension to the spinal canal. Canal and foramina: L1-2: Disc bulge and facet hypertrophy without canal or foraminal narrowing. L2-3: Disc bulge and facet hypertrophy without canal or foraminal narrowing. L3-4: Disc bulge, facet hypertrophy, and ligament flavum thickening with mild narrowing of both subarticular recesses and neural foramina, similar to previous. L4-5: Disc bulge, facet hypertrophy, and ligamentum flavum thickening with diffuse mild spinal canal narrowing and moderate bilateral neural foramen narrowing, similar to previous. L5-S1: Disc bulge and facet hypertrophy with mild bilateral neural foramen narrowing. Sacrum and iliac wings: The visualized sacrum and iliac wings are within normal limits. Impression: IMPRESSION: Innumerable paraspinal soft tissue masses are similar to previous and consistent with the patient's known neurofibromatosis, no evidence of progressive disease. Stable degenerative changes most pronounced in the cervical spine at C5-6 and the lumbar spine at L4-5. Cervical Anatomic Variant: None. Assume 7 cervical vertebrae with counting from the craniocervical junction. Anatomic Thoracic/Lumbar Variant: None. L4-5 is considered the level of the iliac crest and assume there are 5 lumbar-type vertebrae. 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 Sanchez is a pleasant 51 yo woman with heavy disease burden of peripheral nerve sheath tumors. Apart from the diffuse nerve sheath tumors, She only has one KENRICK, no parents or children with genetic disorders or similar symptoms. She does NOT meet the revised diagnostic criteria of NF1 or mosaic NF1 (Dede E., Carly L., Wolana maria, P. et al. Revised diagnostic criteria for neurofibromatosis type 1 and Legius syndrome: an international consensus recommendation. [employer] Med 23, 0032-1110 (2020). https://doi.org/10.1038/m36617-23 [email or web address]). Her most recent genetic testing is negative for germline NF1 mutations. And her prior genetic testing that was done in the past and showed VUS in SMARCB1 with no mutations in NF1 or NF2 though unclear to me if that was rechecked with her most recent test. No available path report to confirm if the removed lesions were schwannomas or neurofibromas. 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 She had no clinical benefit from MEKi, and no follow up MRIs were obtained to determine if there was any radiographic response given the departure of her treating MD from so we elected to stop it given side effects and she has no clinical progression since then. Most recent C spine and neck soft tissue MRIs reviewed with the patient, no radiographic progression Plan: - Annual surveillance imagine with MRI whole body - If diagnosis remain unknown and in the event of disease progression will discussed with NSGY team about tissue acquisition or decompression of any of these lesions then we can run NGS from tumor tissue - Continue Cymbalta 60 mg QHS for neuropathic pain, uptitrate if needed. - PRN rizatriptan for migraine headache RTC in 1 year or sooner if indicated Dre Monte MD, [facility] Staff Neuro-Oncologist [facility] I spent a total of 45 minutes on the date of the service which included preparing to see the patient, [id number] patient care, completing clinical documentation, obtaining and/or reviewing separately obtained history, performing a medically appropriate examination, counseling and educating the patient/family/caregiver, ordering medications, tests, or procedures, communicating with other HCPs (not separately reported), independently interpreting results (not separately reported), and communicating results to the patient/family/caregiver. Patient Care Team: Ramandeep Tom DO as PCP - General (Family Medicine) Additional intake questions: Has the patient had fever, nausea, vomiting, diarrhea, constipation, fatigue for > 1 week? No Does the patient have a decreased appetite? No Does patient want to see a Elevator Serviceman? No (yes to any of above refer patient to schedulers for dietitian appointment) ) Does patient have any new or increased numbness or tingling of extremities? No Is patient interested in fertility information? No Does patient need any prescription refills? No Does patient have an advanced directive in place? No, Patient refused referral to Social Work or Resource Center documented in this encounter [facility] 11-04-2024 Note HNO ID: [id number] Author: DRE MONTE MD Service: ? Author Type: Physician Type: Progress Notes Filed: 11/08/2024 21:44 Note Text: [facility] Established Patient, Return Visit Referred by Dr. 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 Zapata is a pleasant 50 yo Woman with PMH of nerve sheath tumors who is referred to our clinic to establish care. History detailed below. She has been started on Selumetinib by Dr. 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 She experienced significant dermatologic AEs which led to her PCP reducing her dose by 50% to mitigate those AEs. She continues to report problems with skin rash. She takes Tylenol-Codeine for pain. She recently experienced LLE swelling, went to local ER and work up was negative for DVT or cellulitis. No improvement in pain while on Selumeitnib. She is independent in all ADLs and iADLs. She has a 27 yo daughter with no similar symptoms. No other family members with neurologic or genetic d/o. Parts of HPI have been retrieved from prior notes with appropriate modifications as below NF - Saw Dr. Lilly in the past, was told she has unspecified neurofibromatosis type - She had surgery at 2 locations; right arm, and right inframammilary region, both > 20 years ago, was told there were fibromas no records available. 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 - no problems with anxiety: panic attacks from childhood Cognitive or Speech - none Vision - eye floater started when she started Selumetinib - no evidence of optic glioma ENT - no hearing problem - no dizziness or vertigo - occasional tinnitus: both ears. 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 - no abnormal bleeding or discharge Endocrine - no problems - no high blood pressure - no palpations Skin - no neurofibromas - one cafe au lait spots - no freckling FH - no family member with NF (neither parents, aunts uncles. 27 year daughter is unaffected. Interval History 03/12/2022 Sandra is doing well, she is happy that her hair has been growing since she stopped the Koseulgo. She believe cymbalta has helped with her pain but sometimes she gets exacerbation after physical exertion. No falls, new growth, no worsening swallowing issues, no changes in urine or bowel control. No other complaints. 10/15/2022 Doing well, no new pain, swallowing or balance problems, no falls, new focal weakness or sensory deficits 10/23/2023: Sandra presents today for 1 year follow up. She is reporting some worsening neck pain that she describes as stabbing pain 11/04/2024: Sandra presents today for 1 year follow up with new MRI. She is doing good. Weaning herself off of Lamictal with help of her PCP. Has to drink a lot to get food down. Pain in her back when laying down mainly from her left shoulder area. No new lumps or bumps. Pain with resistance in both wrist no other pain.. Sometimes drops items from hands. Last Chemo: Selumetinib, was initiated by Dr. Stanton at fall 2020, dose reduced due to side effects and eventually stopped when she came to [facility] August 2021. 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 [facility] 11-04-2024 Note HNO ID: [id number] Author: MORELIA MCDONOUGH OCCA Service: ? Author Type: Crossbar Frame Wirer Type: Progress Notes Filed: 11/08/2024 21:44 Note Text: Additional intake questions: Has the patient had fever, nausea, vomiting, diarrhea, constipation, fatigue for > 1 week? No Does the patient have a decreased appetite? No Does patient want to see a Elevator Serviceman? No (yes to any of above refer patient to schedulers for dietitian appointment) ) Does patient have any new or increased numbness or tingling of extremities? No Is patient interested in fertility information? No Does patient need any prescription refills? No Does patient have an advanced directive in place? No, Patient refused referral to Social Work or Resource Center Electronically Signed By: INDY Sue [facility] 10-26-2024 History of Present illness Narrative Radiology Service Progress Note DATE OF SERVICE: October 26, 2024 TIME: 8:11 AM PATIENT IDENTITY VERIFICATION COMPLETED USING TWO (2) STANDARD IDENTIFIERS: Name and Date of confirmed by patient verbally. FALL SCREENING: Has the patient had 2 falls in the last year or 1 fall with injury or currently using an Ambulatory Assistive Device (Walker, Cane, Wheelchair, Crutches, etc.)? No PATIENT GENDER DATA: Assigned female at . status: : No status: NO. PATIENT RELEVANT IMPLANT DATA REVIEWED: Yes PATIENT PRESENTS WITH AN IMPLANTABLE OR ATTACHED TRANSPORTATION MUSEUM HELPER: No ALLERGIES: Reviewed and unchanged CONTRAST ALLERGY: NO. EXAM: MRI - CONTRAST TYPE: GROUP II PERIPHERAL IV DATA: Ambulatory: A peripheral IV was started in the Left antecubital site with a Angio cath: 22 gauge. RADIOLOGY DEPARTMENT: MR; Exam(s) Completed: Spine: Cervical spine, Thoracic spine, and Lumbar spine. Lavender Administered: No SIGNATURE: RT Jeff(Ophelia) PATIENT NAME: Sandra Sanchez DATE: October 26, 2024 TIME: 8:11 AM documented in this encounter [facility] 10-26-2024 Note HNO ID: [id number] Author: SOHA MORAN RT(R) Service: ? Author Type: Technologist Type: Progress Notes Filed: 10/26/2024 08:11 Note Text: Radiology Service Progress Note DATE OF SERVICE: October 26, 2024 TIME: 8:11 AM PATIENT IDENTITY VERIFICATION COMPLETED USING TWO (2) STANDARD IDENTIFIERS: Name and Date of confirmed by patient verbally. FALL SCREENING: Has the patient had 2 falls in the last year or 1 fall with injury or currently using an Ambulatory Assistive Device (Walker, Cane, Wheelchair, Crutches, etc.)? No PATIENT GENDER DATA: Assigned female at . status: : No status: NO. PATIENT RELEVANT IMPLANT DATA REVIEWED: Yes PATIENT PRESENTS WITH AN IMPLANTABLE OR ATTACHED TRANSPORTATION MUSEUM HELPER: No ALLERGIES: Reviewed and unchanged CONTRAST ALLERGY: NO. EXAM: MRI - CONTRAST TYPE: GROUP II PERIPHERAL IV DATA: Ambulatory: A peripheral IV was started in the Left antecubital site with a Angio cath: 22 gauge. RADIOLOGY DEPARTMENT: MR; Exam(s) Completed: Spine: Cervical spine, Thoracic spine, and Lumbar spine. Lavender Administered: No SIGNATURE: RT Jeff(R) PATIENT NAME: Sandra Sanchez DATE: October 26, 2024 TIME: 8:11 AM [facility] 10-15-2024 History of Present illness Narrative Subjective Patient ID: Sandra Sanchez is a 54 y.o. female who presents for Follow-up. HPI Ruq abd pain , new 2. Chronic constipation not new 3. Insomnia , on zolpidem prn 4. Would like to wean pain meds (benign/ plexiform NF tumor pain ) - cymbalta, doxepin, and lamictal . 5. 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 Review of Systems OARRS: 02/03/2024 02/03/2024 1 Zolpidem Tartrate 10 Mg Tablet 90.00 90 Sh Van I have personally reviewed the OARRS report for Sandra Sanchez. I have considered the risks of abuse, dependence, addiction and diversion and I believe that it is clinically appropriate for Sandra Sanchez to be prescribed this medication Is the patient prescribed a combination of a benzodiazepine and opioid? No Last Urine Drug Screen No results found for this or any previous visit (from the past 8760 hours). N/A Controlled Substance Agreement: Lst done w prev PCP Sleep Aids: What is the patient's goal of therapy? Treatment of insomnia Is this being achieved with current treatment? Yes Activities of Daily Living: Is your overall impression that this patient is benefiting (symptom reduction outweighs side effects) from sleep aid therapy? Yes 1. Physical Functioning: Better 2. Family Relationship: Same 3. Social Relationship: Same 4. Mood: Same 5. Sleep Patterns: Better 6. Overall Function: Better Objective BP 104/71 (BP Location: Right arm, Patient Position: Sitting, BP Cuff Size: Adult) Pulse 96 Temp 36.5 C (97.7 F) (Temporal) Resp 14 Wt 66.5 kg (146 lb 11.2 oz) LMP 12/04/2020 SpO2 98% BMI 24.41 kg/m Physical Exam Pertinent exam : alert. No distress. Mild pain on palpation ruq . Palpable firm nodules in subcut area . CV regular L;ungs clear Assessment/Plan Problem List Items Addressed This Visit Medium Insomnia Relevant Medications zolpidem (Ambien) 10 mg tablet Lymphedema Relevant Orders Referral to Physical Therapy Neurofibromatosis (Multi) Relevant Medications lamoTRIgine (LaMICtal) 25 mg tablet doxepin (SINEquan) 25 mg capsule Other Visit Diagnoses RUQ abdominal pain - Primary Relevant Orders POCT UA Automated manually resulted (Completed) Urine Culture Comprehensive Metabolic Panel CBC and Auto Differential US gallbladder Constipation, unspecified constipation type Relevant Orders POCT UA Automated manually resulted (Completed) Urine Culture UA unremarkable. RUQ pain , known intraabd masses, chronic constipation, extremity edema . - work up discussed Low threshold to do CT abd/ Pel Lymphedema, med side eff -referral , Pt plans to get lab , ultraS , and therapy at [facility]. Printed orders provided [employer] yoshi Menchaca MD documented in this encounter [facility] Work Phone: 10-15-2024 Instructions Michelle Menchaca MD - 10/15/2024 2:00 PM EDT Lamotrigine , Doxepin : wean gradually Lamotrigine 150 mg (CURRENT) taking 75mg at night NEW Lamotrigine 25 mg Week 1,2 and 3 Lamotrigine 25 mg , 2 pills( 50 mg) daily Week 4, 5 and 6 Lamotrigine 25 mg , 1 pill( 25 mg ) daily then stop Doxepin 100 mg (CURRENT) NEW: Doxepin 25 mg capsule Week 1,2 and 3 : 3 capsule (75 mg) every day Week 4, 5 and 6 : 2 capsule (50 mg) every day . Week 7, 8 and 9: 1 capsule (25 mg ) every day then stop Schedule Ultrasound of abdomen Have labwork done Followup 4week, Virtual Followup Virtual in 4 weeks documented in this encounter [facility] Work Phone: 02-03-2024 Evaluation + Plan note Associated Problem(s): Elevated LDL cholesterol level LDL mildly elevate on prior labs, repeat ordered today with routine labs. Screening CT cardiac scoring ordered today - family hx of AAA in father who was a smoker. We discussed ordering a coronary artery calcium score to better determine how to treat your elevated cholesterol. This is a CT scan to determine if you have calcified plaque in your coronary arteries. Coronary artery calcium scores are used to help us determine how to best treat your elevated cholesterol. The risks of this screen is we may find things that we are not looking for that we will have to follow up on such as lung nodules which are very common in [facility] fatty liver which is common in individuals that are overweight. There is also risk of radiation exposure. Follow up visit will be scheduled to review coronary artery calcium score, if needed. [facility] Work Phone: 02-03-2024 Miscellaneous Notes Associated Problem(s): Elevated LDL cholesterol level LDL mildly elevate on prior labs, repeat ordered today with routine labs. Screening CT cardiac scoring ordered today - family hx of AAA in father who was a smoker. We discussed ordering a coronary artery calcium score to better determine how to treat your elevated cholesterol. This is a CT scan to determine if you have calcified plaque in your coronary arteries. Coronary artery calcium scores are used to help us determine how to best treat your elevated cholesterol. The risks of this screen is we may find things that we are not looking for that we will have to follow up on such as lung nodules which are very common in [facility] fatty liver which is common in individuals that are overweight. There is also risk of radiation exposure. Follow up visit will be scheduled to review coronary artery calcium score, if needed. Associated Problem(s): Recurrent cold sores Reports outbreak 2-3 times per year, would like Valtrex to use as needed, rx with refills sent. Associated Problem(s): Osteopenia 02/2022 DEXA showed osteopenia femur (2/3 sites), normal spine (1/3) Repeat due 2023, previously ordered, to be done in Feb 2024. Recent DEXA scan shows mild bone thinning (osteopenia) but not osteoporosis. Recommend weightbearing exercise such as walking 30 minutes 4-6 days per week. Other strengthening exercises such as yoga and lifting weights can also be helpful. Take vitamin D at 1000 IU daily and calcium at 1500 mg daily. Increase protein intake, 1 g per 1 lb of ideal body weight recommended daily. Recheck DEXA recommended every 2 years. Associated Problem(s): Neurofibromatosis (Multi) Managed/followed by neurology and oncology @ [facility] - Dr. Monte Saw PM in past, no longer does, did not find it beneficial. Taking Doxepin 100 mg + Lamictal 75 mg + Duloxetine 60 mg daily. Also prescribed medical marijuana for pain which she finds to be the most relieving. Prior medications: She was intolerant to methadone, tramadol, and other narcotics in past. She had worsening of pain with Baclofen She is not relieved with OTC meds such as Tylenol or Ibuprofen. Disinclined to due trial with Lyrica due to prior urinary retention requiring self-cath with Gabapentin. Only thing that seems to help is medical marijuana, takes gummies, patient aware to not use at same time of Ambien. Was previously recommended she consider Botox for neck pain/cervicogenic headaches. However, patient wishes to pursue more conservative therapies at this time with physical therapy - referral placed today. Continue current pain regimen as per neurology. Continue with BioFreeze/[place] I recommend considering starting a magesium supplement. Different types of magnesium and their uses: For bowels: To help keep bowels moving (constipation prevention/treatment) magnesium oxide or magnesium citrate (very little magnesium absorbed) For muscle cramping, sleep, and mood: I recommend trying the inexpensive option first, this include magnesium chloride or magnesium glycinate 200-500 mg daily (if bowels become too loose back down dose) If using for sleep, mood, focus and mag chloride or mag glycinate do not seem to be helping: Can try more expensive ($$$) magnesium with best MOISTURE METER OPERATOR (brain) penetration, for sleep, focus, mood - magnesium L threonate ,or threonine, or Magtein - 2000 mg, between 150 and 450 mg elemental magnesium in that 2000 mg depending on brand. This can be purchased online ([employer] has one brand for as little as $30/mo). Associated Problem(s): Insomnia Stable, continue Ambien 10 mg at bedtime as needed. Refills not needed today, patient to call when needed. She is also prescribed medical marijuana for pain, unable to tolerate other medications and this is only thing that works for her. She is aware that she does not use this with the Ambien. Controlled Substance Visit -- I have personally reviewed the [place]ARRS report for this patient. There is copy of report in electronic medical record. I have considered the risks of abuse, dependence, addiction, and diversion. I believe that it is clinically appropriate for this patient to be prescribed this medication. CS requirements: [place]AR[place] completed 02/03/2024 CSA completed 08/19/2023 UDS completed 07/17/2023 documented in this encounter [facility] Work Phone: 02-03-2024 Evaluation + Plan note Associated Problem(s): Recurrent cold sores Reports outbreak 2-3 times per year, would like Valtrex to use as needed, rx with refills sent. [facility] Work Phone: 02-03-2024 Evaluation + Plan note Associated Problem(s): Osteopenia 02/2022 DEXA showed osteopenia femur (2/3 sites), normal spine (1/3) Repeat due 2023, previously ordered, to be done in Feb 2024. Recent DEXA scan shows mild bone thinning (osteopenia) but not osteoporosis. Recommend weightbearing exercise such as walking 30 minutes 4-6 days per week. Other strengthening exercises such as yoga and lifting weights can also be helpful. Take vitamin D at 1000 IU daily and calcium at 1500 mg daily. Increase protein intake, 1 g per 1 lb of ideal body weight recommended daily. Recheck DEXA recommended every 2 years. [facility] Work Phone: 02-03-2024 Evaluation + Plan note Associated Problem(s): Neurofibromatosis (Multi) Managed/followed by neurology and oncology @ [facility] - Dr. Monte Saw PM in past, no longer does, did not find it beneficial. Taking Doxepin 100 mg + Lamictal 75 mg + Duloxetine 60 mg daily. Also prescribed medical marijuana for pain which she finds to be the most relieving. Prior medications: She was intolerant to methadone, tramadol, and other narcotics in past. She had worsening of pain with Baclofen She is not relieved with OTC meds such as Tylenol or Ibuprofen. Disinclined to due trial with Lyrica due to prior urinary retention requiring self-cath with Gabapentin. Only thing that seems to help is medical marijuana, takes gummies, patient aware to not use at same time of Ambien. Was previously recommended she consider Botox for neck pain/cervicogenic headaches. However, patient wishes to pursue more conservative therapies at this time with physical therapy - referral placed today. Continue current pain regimen as per neurology. Continue with BioFreeze/[place] I recommend considering starting a magesium supplement. Different types of magnesium and their uses: For bowels: To help keep bowels moving (constipation prevention/treatment) magnesium oxide or magnesium citrate (very little magnesium absorbed) For muscle cramping, sleep, and mood: I recommend trying the inexpensive option first, this include magnesium chloride or magnesium glycinate 200-500 mg daily (if bowels become too loose back down dose) If using for sleep, mood, focus and mag chloride or mag glycinate do not seem to be helping: Can try more expensive ($$$) magnesium with best MOISTURE METER OPERATOR (brain) penetration, for sleep, focus, mood - magnesium L threonate ,or threonine, or Magtein - 2000 mg, between 150 and 450 mg elemental magnesium in that 2000 mg depending on brand. This can be purchased online ([employer] has one brand for as little as $30/mo). [facility] Work Phone: 02-03-2024 Evaluation + Plan note Associated Problem(s): Insomnia Stable, continue Ambien 10 mg at bedtime as needed. Refills not needed today, patient to call when needed. She is also prescribed medical marijuana for pain, unable to tolerate other medications and this is only thing that works for her. She is aware that she does not use this with the Ambien. Controlled Substance Visit -- I have personally reviewed the OARRS report for this patient. There is copy of report in electronic medical record. I have considered the risks of abuse, dependence, addiction, and diversion. I believe that it is clinically appropriate for this patient to be prescribed this medication. CS requirements: OARRS completed 02/03/2024 CSA completed 08/19/2023 UDS completed 07/17/2023 [facility] Work Phone: 02-03-2024 History of Present illness Narrative Subjective Patient ID: Sandra Sanchez is a 53 y.o. female who presents for Follow-up (Pt presents for 6 month follow up- pt states no new concerns at this time.) and Flu Vaccine (Pt declines flu vaccine at this time. /). HPI Patient presents today for 6 month follow-up + CS visit. Patient concerns: No new concerns or issues. ROUTINE VISIT CHRONIC CONDITIONS: Insomnia States has never been a good sleeper Taking Ambien 10 mg at bedtime as needed. She is also prescribed medical marijuana for pain, unable to tolerate other medications, she is aware that she does not use this with the Ambien. She uses Ambien about 2x per week on average. She does not use with her MM gummies, takes one or the other at night Can usually tell when not going to sleep well and takes Ambien those nights. No adverse effects, wishes to continue as prescribed. CS requirements: CSA completed 08/2023 UDS completed 06/2023 Neurofibromatosis Managed/followed by neurology and oncology @ [facility] - Dr. Monte. Saw PM in past, no longer does, did not find it beneficial. Taking Doxepin 100 mg + Lamictal 150 mg daily. Also prescribed medical marijuana for pain. Taking Duloxetine 60 mg daily. Still having stabbing nerve like pains daily. Rates pain as 8/10 most days. She had urinary retention on gabapentin, had to self-cath. She was intolerant to methadone, tramadol, and other narcotics in past. She is not relieved with OTC meds such as Tylenol or Ibuprofen. Only thing that seems to help is medical marijuana, takes gummies. Disinclined to due trial with Lyrica due to prior urinary retention requiring self-cath with Gabapentin. She is tolerating the MM gummies well, may consider increasing this dose if pain bothersome. Recently tried Baclofen for spine, felt worked well for a couple of weeks but then found it made her pain worse. Having neck/shoulder tightness and headaches. Was recommended botox but patient deferred, concerned about side effects Wanted to try conservative measures before going this route Needs PT referral Osteopenia, hx of fracture 02/2022 DEXA showed osteopenia femur (2/3 sites), normal spine (1/3) Repeat DEXA due 02/2024, ordered 08/2023 Review of Systems All other systems reviewed and are negative. Objective BP 109/72 (BP Location: Left arm, Patient Position: Sitting, BP Cuff Size: Adult) Pulse 82 Temp 36.4 C (97.5 F) (Temporal) Resp 16 Wt 68.4 kg (150 lb 12.8 oz) LMP 12/04/2020 SpO2 98% BMI 24.71 kg/m Physical Exam Vitals and nursing note reviewed. Constitutional: General: She is not in acute distress. Appearance: Normal appearance. She is not toxic-appearing. HENT: Head: Normocephalic and atraumatic. Neck: Thyroid: No thyromegaly. Cardiovascular: Rate and Rhythm: Normal rate and regular rhythm. Heart sounds: Normal heart sounds. No murmur heard. No friction rub. No gallop. Pulmonary: Effort: Pulmonary effort is normal. Breath sounds: Normal breath sounds. No wheezing, rhonchi or rales. Abdominal: General: Bowel sounds are normal. There is no distension. Palpations: Abdomen is soft. There is no mass. Tenderness: There is no abdominal tenderness. There is no guarding. Musculoskeletal: Right lower leg: No edema. Left lower leg: Edema (lymphedema LLE, non-pitting) present. Lymphadenopathy: Cervical: No cervical adenopathy. Skin: General: Skin is warm and dry. Neurological: General: No focal deficit present. Mental Status: She is alert and oriented to person, place, and time. Psychiatric: Mood and Affect: Mood normal. Behavior: Behavior normal. Assessment/Plan Problem List Items Addressed This Visit ICD-10-CM Insomnia - Primary G47.00 Stable, continue Ambien 10 mg at bedtime as needed. Refills not needed today, patient to call when needed. She is also prescribed medical marijuana for pain, unable to tolerate other medications and this is only thing that works for her. She is aware that she does not use this with the Ambien. Controlled Substance Visit -- I have personally reviewed the OARRS report for this patient. There is copy of report in electronic medical record. I have considered the risks of abuse, dependence, addiction, and diversion. I believe that it is clinically appropriate for this patient to be prescribed this medication. CS requirements: OARRS completed 02/03/2024 CSA completed 08/19/2023 UDS completed 07/17/2023 Relevant Medications zolpidem (Ambien) 10 mg tablet Neurofibromatosis (Multi) Q85.00 Managed/followed by neurology and oncology @ [facility] - Dr. Monte Saw PM in past, no longer does, did not find it beneficial. Taking Doxepin 100 mg + Lamictal 75 mg + Duloxetine 60 mg daily. Also prescribed medical marijuana for pain which she finds to be the most relieving. Prior medications: She was intolerant to methadone, tramadol, and other narcotics in past. She had worsening of pain with Baclofen She is not relieved with OTC meds such as Tylenol or Ibuprofen. Disinclined to due trial with Lyrica due to prior urinary retention requiring self-cath with Gabapentin. Only thing that seems to help is medical marijuana, takes gummies, patient aware to not use at same time of Ambien. Was previously recommended she consider Botox for neck pain/cervicogenic headaches. However, patient wishes to pursue more conservative therapies at this time with physical therapy - referral placed today. Continue current pain regimen as per neurology. Continue with BioFreeze/[place] I recommend considering starting a magesium supplement. Different types of magnesium and their uses: For bowels: To help keep bowels moving (constipation prevention/treatment) magnesium oxide or magnesium citrate (very little magnesium absorbed) For muscle cramping, sleep, and mood: I recommend trying the inexpensive option first, this include magnesium chloride or magnesium glycinate 200-500 mg daily (if bowels become too loose back down dose) If using for sleep, mood, focus and mag chloride or mag glycinate do not seem to be helping: Can try more expensive ($$$) magnesium with best MOISTURE METER OPERATOR (brain) penetration, for sleep, focus, mood - magnesium L threonate ,or threonine, or Magtein - 2000 mg, between 150 and 450 mg elemental magnesium in that 2000 mg depending on brand. This can be purchased online ([employer] has one brand for as little as $30/mo). Relevant Orders Referral to Physical Therapy Osteopenia M85.80 02/2022 DEXA showed osteopenia femur (2/3 sites), normal spine (1/3) Repeat due 2023, previously ordered, to be done in Feb 2024. Recent DEXA scan shows mild bone thinning (osteopenia) but not osteoporosis. Recommend weightbearing exercise such as walking 30 minutes 4-6 days per week. Other strengthening exercises such as yoga and lifting weights can also be helpful. Take vitamin D at 1000 IU daily and calcium at 1500 mg daily. Increase protein intake, 1 g per 1 lb of ideal body weight recommended daily. Recheck DEXA recommended every 2 years. Recurrent cold sores B00.1 Reports outbreak 2-3 times per year, would like Valtrex to use as needed, rx with refills sent. Relevant Medications valACYclovir (Valtrex) 1 gram tablet Elevated LDL cholesterol level E78.00 LDL mildly elevate on prior labs, repeat ordered today with routine labs. Screening CT cardiac scoring ordered today - family hx of AAA in father who was a smoker. We discussed ordering a coronary artery calcium score to better determine how to treat your elevated cholesterol. This is a CT scan to determine if you have calcified plaque in your coronary arteries. Coronary artery calcium scores are used to help us determine how to best treat your elevated cholesterol. The risks of this screen is we may find things that we are not looking for that we will have to follow up on such as lung nodules which are very common in [facility] fatty liver which is common in individuals that are overweight. There is also risk of radiation exposure. Follow up visit will be scheduled to review coronary artery calcium score, if needed. Other Visit Diagnoses Codes Neck stiffness M43.6 Relevant Orders Referral to Physical Therapy Cervicogenic headache G44.86 Relevant Orders Referral to Physical Therapy Other complicated headache syndrome G44.59 Relevant Orders Referral to Physical Therapy Screening for cardiovascular condition Z13.[address] cardiac scoring wo IV contrast Follow-up in 6 months for routine care + CS visit + MWV. Labs to be done prior. Call for sooner follow-up if needed. Scribe Attestation By signing my name below, I, Zaira Velásquez attest that this documentation has been prepared under the direction and in the presence of Ramandeep Tom DO. documented in this encounter [facility] Work Phone: 02-03-2024 Instructions Ramandeep Tom DO - 02/03/2024 2:00 PM EDT Insomnia Stable, continue Ambien 10 mg at bedtime as needed. Refills not needed today, patient to call when needed. She is also prescribed medical marijuana for pain, unable to tolerate other medications and this is only thing that works for her. She is aware that she does not use this with the Ambien. Controlled Substance Visit -- I have personally reviewed the OARRS report for this patient. There is copy of report in electronic medical record. I have considered the risks of abuse, dependence, addiction, and diversion. I believe that it is clinically appropriate for this patient to be prescribed this medication. CS requirements: OARRS completed 02/03/2024 CSA completed 08/19/2023 UDS completed 07/17/2023 Neurofibromatosis (Multi) Managed/followed by neurology and oncology @ [facility] - Dr. Monte Saw PM in past, no longer does, did not find it beneficial. Taking Doxepin 100 mg + Lamictal 75 mg + Duloxetine 60 mg daily. Also prescribed medical marijuana for pain which she finds to be the most relieving. Prior medications: She was intolerant to methadone, tramadol, and other narcotics in past. She had worsening of pain with Baclofen She is not relieved with OTC meds such as Tylenol or Ibuprofen. Disinclined to due trial with Lyrica due to prior urinary retention requiring self-cath with Gabapentin. Only thing that seems to help is medical marijuana, takes gummies, patient aware to not use at same time of Ambien. Was previously recommended she consider Botox for neck pain/cervicogenic headaches. However, patient wishes to pursue more conservative therapies at this time with physical therapy - referral placed today. Continue current pain regimen as per neurology. Continue with BioFreeze/[place] I recommend considering starting a magesium supplement. Different types of magnesium and their uses: For bowels: To help keep bowels moving (constipation prevention/treatment) magnesium oxide or magnesium citrate (very little magnesium absorbed) For muscle cramping, sleep, and mood: I recommend trying the inexpensive option first, this include magnesium chloride or magnesium glycinate 200-500 mg daily (if bowels become too loose back down dose) If using for sleep, mood, focus and mag chloride or mag glycinate do not seem to be helping: Can try more expensive ($$$) magnesium with best MOISTURE METER OPERATOR (brain) penetration, for sleep, focus, mood - magnesium L threonate ,or threonine, or Magtein - 2000 mg, between 150 and 450 mg elemental magnesium in that 2000 mg depending on brand. This can be purchased online ([employer] has one brand for as little as $30/mo). Osteopenia 02/2022 DEXA showed osteopenia femur (2/3 sites), normal spine (1/3) Repeat due 2023, previously ordered, to be done in Feb 2024. Recent DEXA scan shows mild bone thinning (osteopenia) but not osteoporosis. Recommend weightbearing exercise such as walking 30 minutes 4-6 days per week. Other strengthening exercises such as yoga and lifting weights can also be helpful. Take vitamin D at 1000 IU daily and calcium at 1500 mg daily. Increase protein intake, 1 g per 1 lb of ideal body weight recommended daily. Recheck DEXA recommended every 2 years. Recurrent cold sores Reports outbreak 2-3 times per year, would like Valtrex to use as needed, rx with refills sent. Elevated LDL cholesterol level LDL mildly elevate on prior labs, repeat ordered today with routine labs. Screening CT cardiac scoring ordered today - family hx of AAA in father who was a smoker. We discussed ordering a coronary artery calcium score to better determine how to treat your elevated cholesterol. This is a CT scan to determine if you have calcified plaque in your coronary arteries. Coronary artery calcium scores are used to help us determine how to best treat your elevated cholesterol. The risks of this screen is we may find things that we are not looking for that we will have to follow up on such as lung nodules which are very common in [facility] fatty liver which is common in individuals that are overweight. There is also risk of radiation exposure. Follow up visit will be scheduled to review coronary artery calcium score, if needed. Order for PT in [place] for patient's neck Order for coronary artery calcium score - Korina will call you to set this up (booking out approx 4 mo) documented in this encounter [facility] Work Phone: 01-16-2024 Note HNO ID: [id number] Author: ALONDRA PONCE APRN.[facility] Service: ? Author Type: Nurse Practitioner Type: Progress Notes Filed: 01/16/2024 18:46 Note Text: Subjective Patient came in with complaints of left inner eye discomfort and redness. Patient says she does not have any blurred vision due to it. Patient says has been about 4 days. Patient says it does not seem to be getting worse. Patient says it does not seem to be getting better either. She not sure if she got something in it. Says it does hurt to blink. The history is provided by the patient. No computer language coder was used. Eye Problem Review of Systems Constitutional: Negative. Eyes: Positive for pain and redness. Negative for blurred vision, double vision and photophobia. Skin: Negative. Objective Physical Exam Constitutional: Appearance: Normal appearance. Eyes: Comments: Area marked above shows erythema. Possible stye on the inner canthus of the upper eyelid. Purple area butterfield where corneal abrasion is located. Cardiovascular: Pulses: Normal pulses. Neurological: Mental Status: She is alert. 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 No date: Panic attacks PAST SURGICAL HISTORY 1992: DELIVERY ONLY Comment: , low cervical 1989, 1993,: EXC NEUROFIBROMA/NEUROLEMMOMA CUTAN NRV No date: TONSILLECTOMY AND ADENOIDECTOMY Comment: Tonsil/adenoidectomy ALLERGIES Venom-Wasp, Gabapentin, Koselugo [Selumetinib-Vitamin E Tpgs], Methadone, Tramadol, and Tree And [place]rub Pollen MEDICATIONS baclofen 5 mg tabletTake 1.5 tablets by mouth three times a day as needed (muscle spasms or nerve pain).Disp: 120 tabletRfl: 0 rizatriptan (MAXALT) 10 mg tabletTake 1 tablet (10 mg) by mouth as needed for migraine headache (see administration instructions). May repeat dose after 2 hours if needed. Maximum daily dose is 30 mg per day.Disp: 12 tabletRfl: 2 DULoxetine (CYMBALTA) 60 mg capsuletake 1 capsule by mouth at bedtimeDisp: 30 capsuleRfl: 2 zolpidem (AMBIEN) 10 mg tabTake 10 mg by mouth at bedtime as needed (insomnia).Disp: Rfl: lamoTRIgine 150 mg tabletTake 0.5 tablets by mouth once daily.Disp: Rfl: 0 (Patient taking differently: Take 75 mg by mouth daily at bedtime.) DOXEPIN 100 MG CAPTake one(1) tablet daily at bedtime.Disp: 30Rfl: 1 (Patient taking differently: Take 150 mg by mouth daily at bedtime.) erythromycin (ROMYCIN) 5 mg/gram (0.5 %) ophthalmic ointmentUse 1 application in the left eye four times daily for 7 days.Disp: 3.5 gRfl: 0 FAMILY HISTORY Problem Relation Age of Onset No Known Problems Mother Arthritis Father other (MVP) Father Mitral valve prolapse with tachycardia No Known Problems Sister No Known Problems Brother Cancer Maternal Grandfather bladder Social History Tobacco Use Smoking status: Never Smokeless tobacco: Never Substance Use Topics Alcohol use: No Drug use: Yes Types: Marijuana ASSESSMENT/PLAN: 1. Irritation of eye - ICD9: 379.99, ICD10: H57.89 (primary diagnosis) - FLUORESCEIN 1 MG EYE STRIPS - TETRACAINE HCL (PF) 0.5 % EYE DROPS 2. Abrasion of left cornea, initial encounter - ICD9: 918.1, ICD10: S05.02XA - ERYTHROMYCIN 5 MG/GRAM (0.5 %) EYE OINTMENT Patient tolerated procedure well. Patient was educated about proper use of medication and supportive therapies. Patient was educated if signs and symptoms do not improve she needs to go to the ER. Patient was okay with this care plan. Alondra Ponce APRN.[facility] 01-16-2024 History of Present illness Narrative Images from the original note were not included. Subjective Patient came in with complaints of left inner eye discomfort and redness. Patient says she does not have any blurred vision due to it. Patient says has been about 4 days. Patient says it does not seem to be getting worse. Patient says it does not seem to be getting better either. She not sure if she got something in it. Says it does hurt to blink. The history is provided by the patient. No computer language coder was used. Eye Problem Review of Systems Constitutional: Negative. Eyes: Positive for pain and redness. Negative for blurred vision, double vision and photophobia. Skin: Negative. Objective Physical Exam Constitutional: Appearance: Normal appearance. Eyes: Comments: Area marked above shows erythema. Possible stye on the inner canthus of the upper eyelid. Purple area butterfield where corneal abrasion is located. Cardiovascular: Pulses: Normal pulses. Neurological: Mental Status: She is alert. 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 No date: Panic attacks PAST SURGICAL HISTORY 1992: DELIVERY ONLY Comment: , low cervical 1989, 1993,: EXC NEUROFIBROMA/NEUROLEMMOMA CUTAN NRV No date: TONSILLECTOMY & ADENOIDECTOMY <AGE 12 Comment: Tonsil/adenoidectomy ALLERGIES Venom-Wasp, Gabapentin, Koselugo [Selumetinib-Vitamin E Tpgs], Methadone, Tramadol, and Tree And [place]rub Pollen MEDICATIONS baclofen 5 mg tablet^Take 1.5 tablets by mouth three times a day as needed (muscle spasms or nerve pain).^Disp: 120 tablet^Rfl: 0 rizatriptan (MAXALT) 10 mg tablet^Take 1 tablet (10 mg) by mouth as needed for migraine headache (see administration instructions). May repeat dose after 2 hours if needed. Maximum daily dose is 30 mg per day.^Disp: 12 tablet^Rfl: 2 DULoxetine (CYMBALTA) 60 mg capsule^take 1 capsule by mouth at bedtime^Disp: 30 capsule^Rfl: 2 zolpidem (AMBIEN) 10 mg tab^Take 10 mg by mouth at bedtime as needed (insomnia).^Disp: ^Rfl: lamoTRIgine 150 mg tablet^Take 0.5 tablets by mouth once daily.^Disp: ^Rfl: 0 (Patient taking differently: Take 75 mg by mouth daily at bedtime.) DOXEPIN 100 MG CAP^Take one(1) tablet daily at bedtime.^Disp: 30^Rfl: 1 (Patient taking differently: Take 150 mg by mouth daily at bedtime.) erythromycin (ROMYCIN) 5 mg/gram (0.5 %) ophthalmic ointment^Use 1 application in the left eye four times daily for 7 days.^Disp: 3.5 g^Rfl: 0 FAMILY HISTORY Problem Relation Age of Onset No Known Problems Mother Arthritis Father other (MVP) Father Mitral valve prolapse with tachycardia No Known Problems Sister No Known Problems Brother Cancer Maternal Grandfather bladder Social History Tobacco Use Smoking status: Never Smokeless tobacco: Never Substance Use Topics Alcohol use: No Drug use: Yes Types: Marijuana ASSESSMENT/PLAN: 1. Irritation of eye - ICD9: 379.99, ICD10: H57.89 (primary diagnosis) - FLUORESCEIN 1 MG EYE STRIPS - TETRACAINE HCL (PF) 0.5 % EYE DROPS 2. Abrasion of left cornea, initial encounter - ICD9: 918.1, ICD10: S05.02XA - ERYTHROMYCIN 5 MG/GRAM (0.5 %) EYE OINTMENT Patient tolerated procedure well. Patient was educated about proper use of medication and supportive therapies. Patient was educated if signs and symptoms do not improve she needs to go to the ER. Patient was okay with this care plan. Alondra Ponce APRN.[facility] documented in this encounter [facility] 12-12-2023 Instructions Candido Chavez MD - 12/12/2023 1:52 PM EDT Consult to physical therapy, Home exercise program Prescription for R AFO. Can take to a medical supply store to have this filled, like [facility], or a store in your area ([employer]). Call before you go. This will help with foot drop and walking. Injections- trigger point injections vs. toxin injections Will ask Dr. Monte after safety concerns for injecting L shoulder Follow up - 2-3 weeks at [facility] Thank you! Dr. Chavez documented in this encounter [facility] 12-12-2023 History of Present illness Narrative Department of Physical Medicine and Rehabilitation Oncology Rehabilitation Outpatient Note CHIEF COMPLAINT: Upper neck pain HISTORY OF PRESENT ILLNESS: This is a 53 year old female with a history of IBS, panic disorder, and peripheral nerve sheath tumors. She started on selumetinib approximately 6 months ago for dysphagia and neck pain thought to be due to progressive neurofibromas. This medication was dose reduced and eventually stopped when she presented to [facility] during 08/2021. Recent imaging of cervical spine and soft tissue neck MRIs not demonstrating radiographic progression. The patient presents today for evaluation of left sided upper neck pain. Reports tumors on her left scapular and around her spine. Turning her neck to the left is difficult. Also reports numbness in her feet and hands and that her balance is a bit off. She is finally able to wear shoes again. Has also tried reflexology and medication, and dry needling, massage therapy, and PT did not help alleviate this pain. Has experienced these sensations her whole life. Baclofen takes the burning away but not the tightness and she did not notice a difference going from 5mg tid to 7.5 mg bid. Takes cymbalta 60 mg po nightly. She takes this at night and makes her sleepy. 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 Lives in a house, 3 steps to enter; bed/bath on first floor Social History Tobacco Use Smoking status: Never Smokeless tobacco: Never Substance Use Topics Alcohol use: No Drug use: Yes Types: Marijuana FOCUSED REVIEW OF SYSTEMS: Musculoskeletal: +L upper trapezius pain PHYSICAL EXAM: Vital signs: BP 109/72 Pulse 96 Temp 36.7 C (98.1 F) (Oral) Resp 18 Wt 65.9 kg (145 lb 4.5 oz) LMP 07/17/2021 (Approximate) SpO2 97% BMI 23.81 kg/m Gen: In no acute distress; presenting today with her mom Head: normocephalic, atraumatic EENT: EOMI, hearing grossly normal Resp: regular, non - labored CV: no apparent tachycardia; extremities are warm Skin: no skin breakdown or abrasions on exposed skin Lymph: no clubbing, cyanosis, edema visible Neuro: Fluent speech, CN exam grossly normal MSK: Inspection: good muscle bulk throughout ROM: cervical spine: rotation 45 degrees to the R, ~90 degrees to the L Reflexes: RIGHT LEFT Triceps 1+ 2 Biceps 1+ 1+ Brachioradialis NT NT Patellar 3+ 3+ Achilles 0 0 Palpation: +firm tissue to palpation in LUE (trapezius mm) Sensation: grossly intact in UE and LE dermatomes Strength: RIGHT LEFT well reactivator operator 3 3 interossei 4 4 APB 4 4 FDP 4 4 ECRL/ECRB 5 5 biceps 5 5 triceps 5 5 deltoid 5 5 hip flexors 5 5 abductors 5 5 adductors 5 5 quadriceps 5 5 hamstrings 5 5 DF 3 5 PF 4 5 Special tests: -Cason's, -Babinski Gait: normal, non-antalgic Psych: pleasant; cooperative BMI: Body mass index is 23.81 kg/m . MEDICATIONS: Current Outpatient Medications Medication Sig baclofen 5 mg tablet Take 1.5 tablets by mouth three times a day as needed (muscle spasms or nerve pain). rizatriptan (MAXALT) 10 mg tablet Take 1 tablet (10 mg) by mouth as needed for migraine headache (see administration instructions). May repeat dose after 2 hours if needed. Maximum daily dose is 30 mg per day. DULoxetine (CYMBALTA) 60 mg capsule take 1 capsule by mouth at bedtime zolpidem (AMBIEN) 10 mg tab Take 10 mg by mouth daily at bedtime. lamoTRIgine 150 mg tablet Take 0.5 tablets by mouth once daily. (Patient taking differently: Take 75 mg by mouth daily at bedtime.) DOXEPIN 100 MG CAP Take one(1) tablet daily at bedtime. (Patient taking differently: Take 150 mg by mouth daily at bedtime.) No current facility-administered medications for this visit. ALLERGIES: Allergies: Venom-Wasp Anaphylaxis Gabapentin Other: See Comments Comment:Urinary retention Koselugo [Selumetin* Other: See Comments Comment:Rash, red skin, swelling, diarrhea/constipation, visual changes, Methadone Mental Status Change Comment:Irritability and weight loss Tramadol Mental Status Change Tree And Shrub Poll* Other: See Comments Comment:Runny eyes, rhinorrhea, sneezing. Spring and fall. PERTINENT LABS: Hematocrit Date Value Ref Range Status 11/22/2003 39.2 37 - 47 % Final WBC Date Value Ref Range Status 11/22/2003 5.13 4.0 - 11.0 k/uL Final Specific [place], Ur Date Value Ref Range Status 01/22/2013 1.010 1.005 - 1.030 Final Glucose, Urine Date Value Ref Range Status 01/22/2013 neg Neg mg/dL Final Bilirubin, Urine Date Value Ref Range Status 01/22/2013 neg Neg Final Ketones, Urine Date Value Ref Range Status 01/22/2013 neg Neg Final Hemoglobin/Blood,Ur Date Value Ref Range Status 01/22/2013 mod non hemo Neg Final Protein, Urine Date Value Ref Range Status 01/22/2013 trace Neg mg/dL Final Urobilinogen, Urine Date Value Ref Range Status 01/22/2013 normal Normal (<1.1) EU Final Leukocytes Date Value Ref Range Status 01/22/2013 large Neg Final Albumin Date Value Ref Range Status 11/22/2003 4.4 3.5 - 5.0 g/dL Final Calcium Date Value Ref Range Status 11/22/2003 9.7 8.5 - 10.5 mg/dL Final Bilirubin, Total Date Value Ref Range Status 11/22/2003 0.3 0.0 - 1.5 mg/dL Final Alkaline Phosphatase Date Value Ref Range Status 11/22/2003 89 40 - 150 U/L Final AST Date Value Ref Range Status 11/22/2003 31 7 - 40 U/L Final Glucose Date Value Ref Range Status 11/22/2003 99 65 - 110 mg/dL Final BUN Date Value Ref Range Status 11/22/2003 16 8 - 25 mg/dL Final Creatinine Date Value Ref Range Status 11/22/2003 0.4 (A) 0.7 - 1.4 mg/dL Final Sodium Date Value Ref Range Status 11/22/2003 139 132 - 148 mmol/L Final Potassium Date Value Ref Range Status 11/22/2003 4.0 3.5 - 5.0 mmol/L Final Chloride Date Value Ref Range Status 11/22/2003 100 98 - 110 mmol/L Final CO2 Date Value Ref Range Status 11/22/2003 30 24 - 32 mmol/L Final Anion Gap Date Value Ref Range Status 11/22/2003 9 0 - 15 mmol/L Final ALT Date Value Ref Range Status 11/22/2003 26 0 - 45 U/L Final TSH Date Value Ref Range Status 03/12/2022 1.450 0.270 - 4.200 mIU/L Final IMAGING RESULTS: MRI lumbar spine (10/21/2023): IMPRESSION: Innumerable paravertebral lesions throughout the spine as described, likely due to patient's known diagnosis of neurofibromatosis. Most of these lesions are unchanged other than a left prevertebral lesion in the lower cervical spine and right greater than left upper thoracic paravertebral lesions since remote exam from 2019. However, no extension into the canal. No high-grade canal narrowing, cord compression, or abnormal cord signal. Mild spondylosis as described in the cervical and lumbar spine. Cervical Anatomic Variant: None. Assume 7 cervical vertebrae with counting from the craniocervical junction. Anatomic Thoracic/Lumbar Variant: None. L4-5 is considered the level of the iliac crest and assume there are 5 lumbar-type vertebrae. ASSESSMENT AND PLAN: The patient is a 53 year old female with a PMHx of neurofibromatosis who presents today for evaluation of left upper neck pain. Myofascial pain Limited cervical range of motion - Will consider botulinum toxin injections vs. trigger point injections at [place] for chronic pain from neurofibromatosis. Reviewed mechanism of action, risks, and benefits of botulinum toxin injections. - Home exercise program provided today - Discussed safety concerns for injecting around left shoulder with neuro-oncology team, to avoid the paravertebral areas Right foot drop - Prescription for right foot drop given to patient today with instructions for obtaining at a medical supply store Follow up - 2-3 weeks at [facility] Candido Chavez DO, MPH Physical Medicine and Rehabilitation Oncology Business Management Analyst BT Initial pre-authorization Medication: Botox [id number] Dose (units every 90 days): Up to 400 units If initial pre-authorization; list treatments failed: PT/OT, Home Exercise Program, Baclofen CPT Codes: Limbs: 02853, 83436, 75736, 71703 Trunk: 82576, 25860 Neck: 69325 Face: 37764 EMG guidance/US guidance: 25393 / 73240 Limb(s) / area(s) injected: Trapezius 50 units Levator scapulae 25 units documented in this encounter [facility] 12-12-2023 Note HNO ID: [id number] Author: CANDIDO CHAVEZ MD Service: ? Author Type: Physician Type: Progress Notes Filed: 12/16/2023 10:21 Note Text: Department of Physical Medicine and Rehabilitation Oncology Rehabilitation Outpatient Note CHIEF COMPLAINT: Upper neck pain HISTORY OF PRESENT ILLNESS: This is a 53 year old female with a history of IBS, panic disorder, and peripheral nerve sheath tumors. She started on selumetinib approximately 6 months ago for dysphagia and neck pain thought to be due to progressive neurofibromas. This medication was dose reduced and eventually stopped when she presented to [facility] during 08/2021. Recent imaging of cervical spine and soft tissue neck MRIs not demonstrating radiographic progression. The patient presents today for evaluation of left sided upper neck pain. Reports tumors on her left scapular and around her spine. Turning her neck to the left is difficult. Also reports numbness in her feet and hands and that her balance is a bit off. She is finally able to wear shoes again. Has also tried reflexology and medication, and dry needling, massage therapy, and PT did not help alleviate this pain. Has experienced these sensations her whole life. Baclofen takes the burning away but not the tightness and she did not notice a difference going from 5mg tid to 7.5 mg bid. Takes cymbalta 60 mg po nightly. She takes this at night and makes her sleepy. 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 Gen: In no acute distress; presenting today with her mom Head: normocephalic, atraumatic EENT: EOMI, hearing grossly normal Resp: regular, non - labored CV: no apparent tachycardia; extremities are warm Skin: no skin breakdown or abrasions on exposed skin Lymph: no clubbing, cyanosis, edema visible Neuro: Fluent speech, CN exam grossly normal MSK: Inspection: good muscle bulk throughout ROM: cervical spine: rotation 45 degrees to the R, ~90 degrees to the L Reflexes: RIGHT LEFT Triceps 1+ 2 Biceps 1+ 1+ Brachioradialis NT NT Patellar 3+ 3+ Achilles 0 0 Palpation: +firm tissue to palpation in LUE (trapezius mm) Sensation: grossly intact in UE and LE dermatomes Strength: RIGHT LEFT well reactivator operator 3 3 interossei 4 4 APB 4 4 FDP 4 4 ECRL/ECRB 5 5 biceps 5 5 triceps 5 5 deltoid 5 5 hip flexors 5 5 abductors 5 5 adductors 5 5 quadriceps 5 5 hamstrings 5 5 DF 3 5 PF 4 5 Special tests: -Cason's, -Babinski Gait: normal, non-antalgic Psych: pleasant; cooperative BMI: Body mass index is 23.81 kg/m?. MEDICATIONS: Current Outpatient Medications Medication Sig baclofen 5 mg tablet Take 1.5 tablets by mouth three times a day as needed (muscle spasms or nerve pain). rizatriptan (MAXALT) 10 mg tablet Take 1 tablet (10 mg) by mouth as needed for migraine headache (see administration instructions). May repeat dose after 2 hours if needed. Maximum daily dose is 30 mg per day. DULoxetine (CYMBALTA) 60 mg capsule take 1 capsule by mouth at bedtime zolpidem (AMBIEN) 10 mg tab Take 10 mg by mouth daily at bedtime. lamoTRIgine 150 mg tablet Take 0.5 tablets by mouth once daily. (Patient taking differently: Take 75 mg by mouth daily at bedtime.) DOXEPIN 100 MG CAP Take one(1) tablet daily at bedtime. (Patient taking differently: Take 150 mg by mouth daily at bedtime.) No current facility-administered medications for this visit. ALLERGIES: Allergies: Venom-Wasp Anaphylaxis Gabapentin Other: See Comments Comment:Urinary retention Koselugo [Selumetin* Other: See Comments Comment:Rash, red skin, swelling, diarrhea/constipation, visual changes, Methadone Mental Status Change Comment:Irritability and weight loss Tramadol Mental Status Change Tree And Shrub Poll* Other: See Comments Comment:Runny eyes, rhinorrhea, sneezing. Spring and fall. PERTINENT LABS: Hematocrit Date Value Ref Range Status 11/22/2003 39.2 37 - 47 % Final WBC Date Value Ref Range Status 11/22/2003 5.13 4.0 - 11.0 k/uL Final Specific [place], Ur Date Value Ref Range Status 01/22/2013 1.010 1.005 - 1.030 Final Glucose, Urine Date Value Ref Range Status 01/22/2013 neg Neg mg/dL Final Bilirubin, Urine Date Value Ref Range Status 01/22/2013 neg Neg Final Ketones, Urine Date Value Ref Range Status 01/22/2013 neg Neg Final Hemoglobin/Blood,Ur Date Value Ref Range Status 01/22/2013 mod non hemo Neg Final Protein, Urine Date Value Ref Range Status 01/22/2013 (more content not included)... [facility] 10-23-2023 History of Present illness Narrative Images from the original note were not included. [facility] Established Patient, Return Visit Referred by Dr. 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 Zapata is a pleasant 50 yo Woman with PMH of nerve sheath tumors who is referred to our clinic to establish care. History detailed below. She has been started on Selumetinib by Dr. 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 She experienced significant dermatologic AEs which led to her PCP reducing her dose by 50% to mitigate those AEs. She continues to report problems with skin rash. She takes Tylenol-Codeine for pain. She recently experienced LLE swelling, went to local ER and work up was negative for DVT or cellulitis. No improvement in pain while on Selumeitnib. She is independent in all ADLs and iADLs. She has a 27 yo daughter with no similar symptoms. No other family members with neurologic or genetic d/o. Parts of HPI have been retrieved from prior notes with appropriate modifications as below NF - Saw Dr. Lilly in the past, was told she has unspecified neurofibromatosis type - She had surgery at 2 locations; right arm, and right inframammilary region, both > 20 years ago, was told there were fibromas no records available. 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 - no problems with anxiety: panic attacks from childhood Cognitive or Speech - none Vision - eye floater started when she started Selumetinib - no evidence of optic glioma ENT - no hearing problem - no dizziness or vertigo - occasional tinnitus: both ears. 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 - no abnormal bleeding or discharge Endocrine - no problems - no high blood pressure - no palpations Skin - no neurofibromas - one cafe au lait spots - no freckling FH - no family member with NF (neither parents, aunts uncles. 27 year daughter is unaffected. Interval History 03/12/2022 Sandra is doing well, she is happy that her hair has been growing since she stopped the Koseulgo. She believe cymbalta has helped with her pain but sometimes she gets exacerbation after physical exertion. No falls, new growth, no worsening swallowing issues, no changes in urine or bowel control. No other complaints. 10/15/2022 Doing well, no new pain, swallowing or balance problems, no falls, new focal weakness or sensory deficits 10/23/2023: Sandra presents today for 1 year follow up. She is reporting some worsening neck pain that she describes as stabbing pain Last Chemo: Selumetinib, was initiated by Dr. Stanton at fall 2020, dose reduced due to side effects and eventually stopped when she came to [facility] August 2021. 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 Panic attacks Past Surgical History: PAST SURGICAL HISTORY Procedure Laterality Date DELIVERY ONLY 1992 , low cervical EXC NEUROFIBROMA/NEUROLEMMOMA CUTAN NRV 1989, 1993, TONSILLECTOMY & ADENOIDECTOMY <AGE 12 Tonsil/adenoidectomy Family History: FAMILY HISTORY Problem Relation Age of Onset No Known Problems Mother Arthritis Father other (MVP) Father Mitral valve prolapse with tachycardia No Known Problems Sister No Known Problems Brother Cancer Maternal Grandfather bladder Social History Tobacco Use Smoking status: Never Smokeless tobacco: Never Substance Use Topics Alcohol use: No Drug use: Yes Types: Marijuana Allergies: Venom-Wasp, Gabapentin, Koselugo [Selumetinib-Vitamin E Tpgs], Methadone, Tramadol, and Tree And Shrub Pollen Current Outpatient Medications Medication Sig fluticasone (FLONASE) 50 mcg/actuation nasal spray Use 2 Sprays in each nostril once daily. Rinse mouth after use. DULoxetine (CYMBALTA) 60 mg capsule take 1 capsule by mouth at bedtime zolpidem (AMBIEN) 10 mg tab Take 10 mg by mouth daily at bedtime. lamoTRIgine 150 mg tablet Take 0.5 tablets by mouth once daily. (Patient taking differently: Take 75 mg by mouth daily at bedtime.) DOXEPIN 100 MG CAP Take one(1) tablet daily at bedtime. (Patient taking differently: Take 150 mg by mouth daily at bedtime.) No current facility-administered medications for this visit. Review of systems: Negative except HPI Objective Physical Exam: LMP 07/17/2021 (Approximate) BP (P) 120/104 Pulse 87 Temp (P) 36.6 C (97.8 F) (Oral) Resp 18 Wt 65.2 kg (143 lb 11.8 oz) LMP 07/17/2021 (Approximate) SpO2 98% BMI 23.56 kg/m General appearance: well appearing, in no acute distress, alert NEUROLOGICAL EXAM: General: Awake, alert, speech fluent, comprehension, naming, repetition intact. Short and grants administrator memory intact. CN: PERRL, EOMI without nystagmus, VFF to confrontation, facial sensation and strength are normal and symmetric, hearing is intact to finger rub bilaterally, palate and tongue movements are intact and symmetric. Motor: Normal tone, bulk and strength bilaterally. Reflexes: 2/4 and symmetric, plantar stimulation is flexor. Coordination: FNF, MIAN, HTS intact. Sensation: diminished PP, LT, and Temp in RLE to knee level Gait: Able to walk on toes, heels, and tandem with mild difficulty but did not require assistance. Romberg normal. Karnofsky performance status: 80 - Normal activity with effort, some signs or symptoms of disease. ECOG performance status: 1 - Restricted in physically strenuous activity but ambulatory and able to carry out work of a light or sedentary nature, e.g., light house work or office work. 06/21/2022 PHQ 2 and 9 Total Scores PHQ-2 Score 0 PHQ-9 Score 0 Labs: Latest Ref Rng & Units 11/22/2003 CBC WBC 4.0 - 11.0 k/uL 5.13 RBC 4.2 - 5.4 M/uL 4.19 Hemoglobin 12.0 - 16.0 g/dL 13.3 Hematocrit 37 - 47 % 39.2 MCV 80 - 100 fL 93.6 MCH 27 - 34 pG 31.7 MCHC 32 - 36 % 33.9 RDW-CV 11.7 - 15.0 % 12.5 Platelet Count 150 - 400 K/uL 155 MPV 7.3 - 11.1 fL 11.8 Latest Ref Rng & Units 09/25/2001 11/22/2003 CMP Sodium 132 - 148 mmol/L 140 139 Potassium 3.5 - 5.0 mmol/L 4.9 4.0 Chloride 98 - 110 mmol/L 100 100 CO2 24 - 32 mmol/L 35 30 Glucose 65 - 110 mg/dL 103 99 BUN 8 - 25 mg/dL 11 16 Creatinine 0.7 - 1.4 mg/dL 0.8 0.4 Protein, Total 6.0 - 8.4 g/dL 7.3 8.8 Albumin 3.5 - 5.0 g/dL 4.3 4.4 Calcium 8.5 - 10.5 mg/dL 10.1 9.7 Bilirubin, Total 0.0 - 1.5 mg/dL 0.5 0.3 AST 7 - 40 U/L 22 31 ALT 0 - 45 U/L 13 26 Alkaline Phosphatase 40 - 150 U/L 114 89 Final Pathology: N/A Imaging: MRI Report MRI BRAIN WWO CONTRAST Collected: 12/26/2009 5:57 PM (Final result) Reviewed prior MRIs, innumerable peripheral nerve sheath tumors in paraspinal, pelvic, and LE areas. No vestibular schwannomas or optic pathway gliomas. MRI Spine Report MRI LUMBAR SPINE WO/W IVCON Exam End: 10/08/2022 11:28 AM (Final result) Narrative: * * *Final Report* * * DATE OF EXAM: Oct 08 2022 11:28AM [facility] [id number] - MRI LUMBAR SPINE WO/W IVCON / PROCEDURE REASON: multiple diagnoses * * * * Physician Interpretation * * * * EXAMINATION: MRI THORACIC SPINE WO/W IVCON, MRI LUMBAR SPINE WO/W IVCON, MRI CERVICAL SPINE WO/W IVCON CLINICAL HISTORY: 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 Neuropathic pain multiple peripheral nerve sheath tumors TECHNIQUE: Routine cervical, thoracic, and lumbosacral spine MR protocol without and with intravenous gadolinium. MQ: [id number] Contrast: IV administration of 12 ml of Dotarem COMPARISON: MRI cervical spine and neck 09/17/2021, MRI outside hospital complete spine 12/24/2019 RESULT: CERVICAL: Counting reference: Craniocervical junction. Anatomic Variants: None. Localizer images: Multiple paravertebral and paraspinal T2 hyperintense lesions are noted in the cervical and thoracic spine, representing numerous multilevel nerve sheath tumors. Alignment: Mild reversal of the cervical lordosis centered at C4 with stepwise grade 1 anterolisthesis from C2-C4 and minimal stepwise retrolisthesis from C4-C6. Craniocervical junction: Craniocervical junction is normal. Cord: The cervical spinal cord is within normal limits of signal intensity and morphology. There is no pathologic intradural enhancement noted on postcontrast imaging. Bone marrow signal/fracture: No evidence of pathologic marrow infiltration. No evidence of prior fracture. Cervical soft tissues: There are again noted multiple enlarged heterogeneously enhancing paravertebral soft tissue masses most likely representing extraforaminal nerve sheath tumors in the lower cervical and upper thoracic levels. Right extraforaminal nerve sheath tumor at C5-C6 expands the right transverse foramen with bony remodeling of the adjacent facet and vertebral body and partial encasement of the right cervical vertebral artery, associated with the right C6 nerve. This measures approximately 1.4 x 1.3 cm in the right transverse foramen (series 22, image 17). Additional fusiform enlargement of bilateral extraforaminal cervical nerves with throughout the remainder of the lower cervical levels and multiple enhancing T2 hyperintense masses in the neck, similar in size and configuration to prior MRI 09/17/2021. The largest mass is present in the left neck at the level of the thyroid gland, situated between the left common carotid artery and internal jugular vein measuring 1.8 x 2.3 x 4.8 cm, similar in size and configuration compared to the prior MRI. Canal and foramina: C2-C3: Canal and foramina are patent. C3-C4: The canal and bilateral foramina are patent. C4-C5: Mild to moderate left foraminal stenosis from facet and uncovertebral hypertrophy. Mild posterior disc osteophyte. The canal and right foramen are patent. C5-C6: Moderate to severe bilateral foraminal stenoses from facet and uncovertebral hypertrophy. Mild canal stenosis from posterior disc osteophyte complex. C6-C7: Canal and foramina are patent. C7-T1: Canal and foramina are patent. THORACIC: Counting reference: Craniocervical and lumbosacral junctions. For the purposes of this report, L4-5 is considered the level of the iliac crest and assume there are 5 lumbar-type vertebrae. Anatomic variant: None. Alignment: Alignment is anatomic. Cord: The thoracic spinal cord is within normal limits of signal intensity and morphology. No pathologic intradural enhancement is noted on postcontrast imaging. Bone marrow signal/fracture: No evidence of pathologic marrow infiltration. No evidence of prior fracture. Posterior elements are normal in morphology and alignment. Intraosseous hemangioma in the inferior T10 vertebral body. Thoracic soft tissues: Numerous lobulated T2 hyperintense paravertebral soft tissue masses along the bilateral anterolateral vertebral margins in the thoracic spine with heterogeneous internal T2 signal and enhancement, compatible with predominantly extraforaminal nerve sheath tumors. Overall size and configuration of the mass is is similar to the prior MRI from 12/28/2019 without substantial interval change. The majority of the larger masses are present from the T1-T5 levels. Some of the nerve sheath tumors extending to the foramen with mild expansion of the bone foramen in the upper thoracic levels. The masses mildly displace the esophagus and trachea anteriorly. Some of the masses abut the aortic arch. Additional smaller nerve sheath tumors are present bilaterally in the mid to lower thoracic levels, greater on the left, the larger masses along the T8 and T9 lateral vertebral artery origins. These also appear stable in size and configuration compared to 12/28/2019. Canal and foramina: There is enlargement with bony remodeling of the bilateral T2-T6 neural foramen from the foraminal and extraforaminal nerve sheath tumors. There is no intradural extension of the nerve sheath tumors. No significant canal or foraminal stenoses. LUMBAR: Counting reference: Craniocervical and lumbosacral junctions. For the purposes of this report, L4-5 is considered the level of the iliac crest and assume there are 5 lumbar-type vertebrae. Anatomic variant: None. Alignment: Alignment is anatomic. Bone marrow signal/fracture: No evidence of pathologic marrow infiltration. No evidence of prior fracture. Posterior elements are normal in morphology and alignment. Mild degenerative disc space narrowing with associated type I signal degenerative endplate marrow changes at L2-L3. There is expansion of the sacral canal and neural foramina with bony remodeling partially visualized nerve sheath tumors, the largest predominantly in the right S3-S4 and S4-S5 foramen. Conus: The conus is within normal limits of signal intensity and morphology. The conus terminates at the L1-L2 level. No pathologic intradural enhancement on postcontrast imaging. Paraspinal soft tissues: Numerous paravertebral retroperitoneal lobulated rounded soft tissue masses compatible with nerve sheath tumors, along the bilateral anterior and lateral vertebral body margins in the lumbar spine, abutting the aorta and IVC, bilateral common iliac arteries with multiple masses seen in the visualized pelvis. Compared to the prior MRI 12/28/2019, no substantial interval change in the size or configuration of these masses. There is no significant foraminal or intradural involvement in the lumbar spine by the nurse sheath tumors.. Canal and foramina: There is mild bilateral foraminal stenosis from facet hypertrophy at L4-L5. Otherwise, no significant lumbar canal or foraminal stenosis within the constraints of the study. Sacrum and iliac wings: Multiple nerve sheath tumors within the sacral canal and bilateral sacral neural foramen involving the bilateral S1-S4 nerves with and bony remodeling and expansion of the right S3-S5 neural foramen. Please see separate report for dedicated MRI pelvis imaging findings. Impression: IMPRESSION: Multiple soft tissue neck masses predominantly extra foraminal in the prevertebral and paravertebral region, compatible with nerve sheath tumors. No substantial interval change compared to the prior MRI from 09/17/2021. Multiple prevertebral, paravertebral soft tissue masses predominantly in the upper thoracic spine, some involving the foramen with bony expansion of the bilateral neural foramina from the larger masses at T2-T6, compatible with nerve sheath tumors. No substantial interval change compared to the prior MRI 12/28/2019. Multiple prevertebral, paravertebral and retroperitoneal soft tissue masses along the lumbar spine and sacrum, without substantial interval change from MRI 12/28/2019, compatible with nerve sheath tumors. No intradural involvement of the nerve sheath tumors. No pathologic intradural enhancement. The cervical, thoracic cord, conus and cauda equina nerve roots are within normal. Cervical Anatomic Variant: None. Assume 7 cervical vertebrae with counting from the craniocervical junction. Anatomic Thoracic/Lumbar Variant: None. L4-5 is considered the level of the iliac crest and assume there are 5 lumbar-type vertebrae. 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 Sanchez is a pleasant 51 yo woman with heavy disease burden of peripheral nerve sheath tumors. Apart from the diffuse nerve sheath tumors, She only has one KENRICK, no parents or children with genetic disorders or similar symptoms. She does NOT meet the revised diagnostic criteria of NF1 or mosaic NF1 (Yanet Aguayo., Sandrita Carroll., Katina P. et al. Revised diagnostic criteria for neurofibromatosis type 1 and Legius syndrome: an international consensus recommendation. [employer] Med 23, 2835-1780 (2020). https://doi.org/10.1038/n90354-57 1-65524-0). Her most recent genetic testing is negative for germline NF1 mutations. And her prior genetic testing that was done in the past and showed VUS in SMARCB1 with no mutations in NF1 or NF2 though unclear to me if that was rechecked with her most recent test. No available path report to confirm if the removed lesions were schwannomas or neurofibromas. 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 She had no clinical benefit from MEKi, and no follow up MRIs were obtained to determine if there was any radiographic response given the departure of her treating MD from so we elected to stop it given side effects and she has no clinical progression since then. Most recent C spine and neck soft tissue MRIs reviewed with the patient, no radiographic progression Plan: - Annual surveillance imagine with MRI spine and pelvis with contrast. - If diagnosis remain unknown and in the event of disease progression will discussed with NSGY team about tissue acquisition or decompression of any of these lesions then we can run NGS from tumor tissue - Continue Cymbalta 60 mg QHS for neuropathic pain, uptitrate if needed. - Referral to UroGyn for voiding complaints - PRN rizatriptan for migraine headache - PN baclofen for muscle spasms and neuropathic pain - discussed SCS trial in the future - may consider nightly pamelor pending clinical response to PRN meds RTC in 1 year or sooner if indicated Dre Monte MD, [facility] Staff Neuro-Oncologist [facility] I spent a total of 45 minutes on the date of the service which included preparing to see the patient, [id number] patient care, completing clinical documentation, obtaining and/or reviewing separately obtained history, performing a medically appropriate examination, counseling and educating the patient/family/caregiver, ordering medications, tests, or procedures, communicating with other HCPs (not separately reported), independently interpreting results (not separately reported), and communicating results to the patient/family/caregiver. Patient Care Team: Ramandeep Tom DO as PCP - General (Family Medicine) documented in this encounter [facility] 10-23-2023 Nurse Note Additional intake questions: Has the patient had fever, nausea, vomiting, diarrhea, constipation, fatigue for > 1 week? Yes, constipation (day of last BM yesterday), fatigue, and Provider Notified Does the patient have a decreased appetite? No Does patient want to see a Elevator Serviceman? No (yes to any of above refer patient to schedulers for dietitian appointment) ) Does patient have any new or increased numbness or tingling of extremities? Yes, hands more tingling and numbness. Is patient interested in fertility information? No Does patient need any prescription refills? No Does patient have an advanced directive in place? No, Patient referred to [facility] 10-23-2023 Nurse Note Additional intake questions: Has the patient had fever, nausea, vomiting, diarrhea, constipation, fatigue for > 1 week? Yes, constipation (day of last BM yesterday), fatigue, and Provider Notified Does the patient have a decreased appetite? No Does patient want to see a Elevator Serviceman? No (yes to any of above refer patient to schedulers for dietitian appointment) ) Does patient have any new or increased numbness or tingling of extremities? Yes, hands more tingling and numbness. Is patient interested in fertility information? No Does patient need any prescription refills? No Does patient have an advanced directive in place? No, Patient referred to [facility] documented in this encounter [facility] 10-21-2023 History of Present illness Narrative Radiology Service Progress Note DATE OF SERVICE: October 21, 2023 TIME: 9:58 AM PATIENT IDENTITY VERIFICATION COMPLETED USING TWO (2) STANDARD IDENTIFIERS: Name and Date of confirmed by patient verbally. FALL SCREENING: Has the patient had 2 falls in the last year or 1 fall with injury or currently using an Ambulatory Assistive Device (Walker, Cane, Wheelchair, Crutches, etc.)? No PATIENT GENDER DATA: Female. status: : No status: NO. PATIENT RELEVANT IMPLANT DATA REVIEWED: Yes PATIENT PRESENTS WITH AN IMPLANTABLE OR ATTACHED TRANSPORTATION MUSEUM HELPER: No ALLERGIES: Reviewed and unchanged CONTRAST ALLERGY: NO. EXAM: MRI - CONTRAST TYPE: GROUP II PERIPHERAL IV DATA: Ambulatory: A peripheral IV was started in the Left antecubital site with a Angio cath: 22 gauge. RADIOLOGY DEPARTMENT: MR; Exam(s) Completed: Lower MSK: Pelvis, bilateral Spine: Cervical spine, Thoracic spine, and Lumbar spine SIGNATURE: RT Jeff(R) PATIENT NAME: Sandra Sanchez DATE: October 21, 2023 TIME: 9:58 AM documented in this encounter [facility] 08-19-2023 Evaluation + Plan note Associated Problem(s): Osteopenia 02/2022 DEXA showed osteopenia femur (2/3 sites), normal spine (1/3) Repeat due 2023, ordered today. Recent DEXA scan shows mild bone thinning (osteopenia) but not osteoporosis. Recommend weightbearing exercise such as walking 30 minutes 4-6 days per week. Other strengthening exercises such as yoga and lifting weights can also be helpful. Take vitamin D at 1000 IU daily and calcium at 1500 mg daily. Increase protein intake, 1 g per 1 lb of ideal body weight recommended daily. Recheck DEXA recommended every 2 years. [facility] Work Phone: 08-19-2023 Miscellaneous Notes Associated Problem(s): Osteopenia 02/2022 DEXA showed osteopenia femur (2/3 sites), normal spine (1/3) Repeat due 2023, ordered today. Recent DEXA scan shows mild bone thinning (osteopenia) but not osteoporosis. Recommend weightbearing exercise such as walking 30 minutes 4-6 days per week. Other strengthening exercises such as yoga and lifting weights can also be helpful. Take vitamin D at 1000 IU daily and calcium at 1500 mg daily. Increase protein intake, 1 g per 1 lb of ideal body weight recommended daily. Recheck DEXA recommended every 2 years. Associated Problem(s): Neurofibromatosis (CMS/HCC) Managed/followed by neurology and oncology @ [facility]. Saw PM in past, no longer does, did not find it beneficial. Taking Doxepin 100 mg + Lamictal 150 mg + Duloxetine 60 mg daily. Also prescribed medical marijuana for pain which she finds to be the most relieving. Stable, will continue with present regimen. Disinclined to due trial with Lyrica due to prior urinary retention requiring self-cath with Gabapentin. She is tolerating the MM gummies well, may consider increasing this dose if pain bothersome. Associated Problem(s): Insomnia Stable, continue Ambien 10 mg at bedtime as needed. Refills not needed today, patient to call when needed. She is also prescribed medical marijuana for pain, unable to tolerate other medications and this is only thing that works for her. She is aware that she does not use this with the Ambien. Controlled Substance Visit -- [place] to be reviewed when refilling the Ambien. I have considered the risks of abuse, dependence, addiction, and diversion. I believe that it is clinically appropriate for this patient to be prescribed this medication. CS requirements: [place] reviewed today (08/19/2023) CSA completed today (08/19/2023) UDS completed 06/2023 Associated Problem(s): Medicare annual wellness visit, subsequent Vaccines and screenings reviewed. Questionnaires completed. Health and wellness topics reviewed. Diet and exercise recommendations revisited. Routine blood work ordered today. VACCINES: -Flu vaccine recommended in the fall -TDAP recommended every 10 yrs, due per our records, can get at pharmacy no rx needed. -Shingles vaccine (Shingrix) is recommended. Please call insurance to see if covered. This vaccine is expensive but extremely effective. This is to be administered in 2 separate doses, 2- 6 months apart. This is a killed virus vaccine, so no risk of chicken pox or shingles with administration. The vaccine is approximately 90 % effective to protect against shingles even 5 years out. Side effects of the vaccine can include soreness of the arm at administration site and possible flu-like symptoms after administration. This is a strongly recommended vaccine. SCREENINGS: -Screening pap is UTD, completed 2021 and repeat due 2026 -Screening mammogram is DUE 07/2023, ordered today. -Screening colonoscopy is DUE, ordered today. -Screening DEXA last completed 02/2022, repeat due 02/2024, ordered today. LIFESTYLE MEASURES -consider increasing protein intake provided no issues with kidneys to 1 gram per 1 pound of ideal body weight per not to exceed 150 gram per day. May have to supplement with a protein powder to achieve this goal. -make sure you are avoiding refined carbs such as breads, pasta, cereal, candy, soda, nutrition bars, granola, chips, and sugar sweetened beverages. -eat 5- 7 servings daily of veggies, healthy protein such as chicken, fish, beans, and eggs, and include healthy fats in your diet such as seeds, nuts, olive oil, avocados, and salmon. -exercise 4 - 6 days per week as you are able, 150 minutes total weekly divided up is recommended. -Vitamin D is recommended at 1000 - 5000 IU international units daily. -Always wear sunscreen when you have sun exposure. -64 oz of water is recommended daily. -Dental visits recommended every 6 months. -Eye exam recommended every 2 years, for those with vision problems every year. documented in this encounter [facility] Work Phone: 08-19-2023 Evaluation + Plan note Associated Problem(s): Neurofibromatosis (CMS/HCC) Managed/followed by neurology and oncology @ [facility]. Saw PM in past, no longer does, did not find it beneficial. Taking Doxepin 100 mg + Lamictal 150 mg + Duloxetine 60 mg daily. Also prescribed medical marijuana for pain which she finds to be the most relieving. Stable, will continue with present regimen. Disinclined to due trial with Lyrica due to prior urinary retention requiring self-cath with Gabapentin. She is tolerating the MM gummies well, may consider increasing this dose if pain bothersome. [facility] Work Phone: 08-19-2023 Evaluation + Plan note Associated Problem(s): Insomnia Stable, continue Ambien 10 mg at bedtime as needed. Refills not needed today, patient to call when needed. She is also prescribed medical marijuana for pain, unable to tolerate other medications and this is only thing that works for her. She is aware that she does not use this with the Ambien. Controlled Substance Visit -- [place]AR[place] to be reviewed when refilling the Ambien. I have considered the risks of abuse, dependence, addiction, and diversion. I believe that it is clinically appropriate for this patient to be prescribed this medication. CS requirements: [place]AR[place] reviewed today (08/19/2023) CSA completed today (08/19/2023) UDS completed 06/2023 [facility] Work Phone: 08-19-2023 Evaluation + Plan note Associated Problem(s): Medicare annual wellness visit, subsequent Vaccines and screenings reviewed. Questionnaires completed. Health and wellness topics reviewed. Diet and exercise recommendations revisited. Routine blood work ordered today. VACCINES: -Flu vaccine recommended in the fall -TDAP recommended every 10 yrs, due per our records, can get at pharmacy no rx needed. -Shingles vaccine (Shingrix) is recommended. Please call insurance to see if covered. This vaccine is expensive but extremely effective. This is to be administered in 2 separate doses, 2- 6 months apart. This is a killed virus vaccine, so no risk of chicken pox or shingles with administration. The vaccine is approximately 90 % effective to protect against shingles even 5 years out. Side effects of the vaccine can include soreness of the arm at administration site and possible flu-like symptoms after administration. This is a strongly recommended vaccine. SCREENINGS: -Screening pap is UTD, completed 2021 and repeat due 2026 -Screening mammogram is DUE 07/2023, ordered today. -Screening colonoscopy is DUE, ordered today. -Screening DEXA last completed 02/2022, repeat due 02/2024, ordered today. LIFESTYLE MEASURES -consider increasing protein intake provided no issues with kidneys to 1 gram per 1 pound of ideal body weight per not to exceed 150 gram per day. May have to supplement with a protein powder to achieve this goal. -make sure you are avoiding refined carbs such as breads, pasta, cereal, candy, soda, nutrition bars, granola, chips, and sugar sweetened beverages. -eat 5- 7 servings daily of veggies, healthy protein such as chicken, fish, beans, and eggs, and include healthy fats in your diet such as seeds, nuts, olive oil, avocados, and salmon. -exercise 4 - 6 days per week as you are able, 150 minutes total weekly divided up is recommended. -Vitamin D is recommended at 1000 - 5000 IU international units daily. -Always wear sunscreen when you have sun exposure. -64 oz of water is recommended daily. -Dental visits recommended every 6 months. -Eye exam recommended every 2 years, for those with vision problems every year. [facility] Work Phone: 08-19-2023 History of Present illness Narrative Subjective Reason for Visit: Sandra Sanchez is an 52 y.o. female here for a Medicare Wellness visit. Reviewed all medications by prescribing practitioner or clinical pharmacist (such as prescriptions, OTCs, herbal therapies and supplements) and documented in the medical record. HPI Patient presents today for routine FUV + MWV Patient concerns: No new concerns or issues, they are doing well overall. MEDICARE WELLNESS VISIT TDAP: none found - DUE SHINGRIX: none found - DUE PNEUMOVAX: N/A PAP: 09/2021 (ASCUS negative, HPV negative, due 2026) MAMMO: 08/2022 - DUE CSCOPE: none found - DUE - cscope ordered 07/2022 (dad with hx of colon cancer) DEXA: 02/2022 (osteopenia 2/3, normal spine) (hx of fracture) HEP C SCREEN: 12/2020 negative CACS: none found Diet: states has gained weight, was eating loss of veggies and doing well but kind of fell off. Exercise: states she exercise more, because a little less active in the colder months. She likes walking daily, she does have gym membership. Alcohol use: maybe 2 glasses of wine per month Smoking: never smoker Dental: UTD Vision: UTD Cervical cancer screening: UTD Denies family history in first degree relative. Denies pelvic pain, vaginal discharge, or vaginal bleeding. Breast cancer screening: DUE 08/2023 Denies family history in first degree relative. Denies lumps/bumps, skin changes, nipple retraction, or nipple drainage. Colon cancer screening: DUE Reports family history in first degree relative - dad Denies melena, hematochezia, constipation, diarrhea, bloating, change in bowel habits. ROUTINE VISIT CHRONIC CONDITIONS: Insomnia Taking Ambien 10 mg at bedtime as needed. Taking and tolerating well. ETOH rare - maybe 1 glass of wine twice a month Chronic pain from neurofibromatosis Patient has severe nerve pain at NF tumors (extremities, trunk) that have severe shock-like stabbing pain , can keep her awake, can limit exercise Has tried prescription pain meds - tramadol, oxycodone - cannot tolerate (sedation, nausea, crazy mental side effects - cannot use Has tried nsaids, tylenol, duloxetine, has tried gabapentin (caused urinary retention) The only thing that seems to help with few side effects is medical marijuana - pt uses about 3 or 4 nights per week before bed for pain, uses gummies, functions much better with those than other meds for pain We have discussed at length CSA and the exception for her due to MM use for pain in light of no other meds helping; pt aware that random drug tests may be requested I am aware that she uses MM , she will be an intentional exception for continued ambien use with mm use she is aware that she should not use MM with the Ambien. She uses Ambien about 2x per week on average. CS requirements: CSA completed 07/2022. UDS completed 06/2023 Neurofibromatosis Managed/followed by neurology and oncology @ [facility]. Saw PM in past, no longer does, did not find it beneficial. Taking Doxepin 100 mg + Lamictal 150 mg daily. Also prescribed medical marijuana for pain. Taking Duloxetine 60 mg daily. Still having stabbing nerve like pains daily. Rates pain as 8/10 most days. She had urinary retention on gabapentin, had to self-cath. She was intolerant to methadone, tramadol, and other narcotics in past. She is not relieved with OTC meds such as Tylenol or Ibuprofen. Only thing that seems to help is medical marijuana, takes gummies. Osteopenia, hx of fracture 02/2022 DEXA showed osteopenia femur (2/3 sites), normal spine (1/3) Patient Care Team: Ramandeep Tom DO as PCP - General Ramandeep Tom DO as PCP - MSSP ACO Attributed Provider Review of Systems All other systems reviewed and are negative. Objective Vitals: BP 105/68 (BP Location: Left arm, Patient Position: Sitting, BP Cuff Size: Small adult) Pulse 94 Temp 36.4 C (97.5 F) (Temporal) Resp 16 Ht 1.664 m (5' 5.5) Wt 64.5 kg (142 lb 3.2 oz) LMP 12/04/2020 SpO2 96% BMI 23.30 kg/m Physical Exam Vitals and nursing note reviewed. Constitutional: General: She is not in acute distress. Appearance: Normal appearance. She is not toxic-appearing. HENT: Head: Normocephalic and atraumatic. Mouth/Throat: Mouth: Mucous membranes are moist. Pharynx: Oropharynx is clear. Eyes: Pupils: Pupils are equal, round, and reactive to light. Neck: Thyroid: No thyromegaly. Cardiovascular: Rate and Rhythm: Normal rate and regular rhythm. Heart sounds: No murmur heard. No friction rub. No gallop. Pulmonary: Effort: Pulmonary effort is normal. Breath sounds: Normal breath sounds. No wheezing, rhonchi or rales. Abdominal: General: Bowel sounds are normal. There is no distension. Palpations: Abdomen is soft. There is no mass. Tenderness: There is no abdominal tenderness. There is no guarding. Musculoskeletal: Right lower leg: No edema. Left lower leg: No edema. Lymphadenopathy: Cervical: No cervical adenopathy. Skin: General: Skin is warm and dry. Neurological: General: No focal deficit present. Mental Status: She is alert and oriented to person, place, and time. Psychiatric: Mood and Affect: Mood normal. Behavior: Behavior normal. Assessment/Plan Problem List Items Addressed This Visit Insomnia Overview Taking Ambien 10 mg at bedtime as needed. She is also prescribed medical marijuana for pain, unable to tolerate other medications, she is aware that she does not use this with the Ambien. CS requirements: CSA completed 08/19/2023 UDS completed 06/2023 Current Assessment & Plan Stable, continue Ambien 10 mg at bedtime as needed. Refills not needed today, patient to call when needed. She is also prescribed medical marijuana for pain, unable to tolerate other medications and this is only thing that works for her. She is aware that she does not use this with the Ambien. Controlled Substance Visit -- [place] to be reviewed when refilling the Ambien. I have considered the risks of abuse, dependence, addiction, and diversion. I believe that it is clinically appropriate for this patient to be prescribed this medication. CS requirements: [place] reviewed today (08/19/2023) CSA completed today (08/19/2023) UDS completed 06/2023 Neurofibromatosis ([facility]) Overview Managed/followed by neurology and oncology @ [facility]. Saw PM in past, no longer does, did not find it beneficial. Taking Doxepin 100 mg + Lamictal 150 mg + Duloxetine 60 mg daily. Also prescribed medical marijuana for pain. Current Assessment & Plan Managed/followed by neurology and oncology @ [facility]. Saw PM in past, no longer does, did not find it beneficial. Taking Doxepin 100 mg + Lamictal 150 mg + Duloxetine 60 mg daily. Also prescribed medical marijuana for pain which she finds to be the most relieving. Stable, will continue with present regimen. Disinclined to due trial with Lyrica due to prior urinary retention requiring self-cath with Gabapentin. She is tolerating the MM gummies well, may consider increasing this dose if pain bothersome. Relevant Orders CBC Comprehensive Metabolic Panel Lipid Panel Osteopenia Overview 02/2022 DEXA showed osteopenia femur (2/3 sites), normal spine (1/3) Current Assessment & Plan 02/2022 DEXA showed osteopenia femur (2/3 sites), normal spine (1/3) Repeat due 2023, ordered today. Recent DEXA scan shows mild bone thinning (osteopenia) but not osteoporosis. Recommend weightbearing exercise such as walking 30 minutes 4-6 days per week. Other strengthening exercises such as yoga and lifting weights can also be helpful. Take vitamin D at 1000 IU daily and calcium at 1500 mg daily. Increase protein intake, 1 g per 1 lb of ideal body weight recommended daily. Recheck DEXA recommended every 2 years. Medicare annual wellness visit, subsequent - Primary Overview TDAP: none found - DUE SHINGRIX: none found - DUE PNEUMOVAX: N/A PAP: 09/2021 (ASCUS negative, HPV negative, due 2026) MAMMO: 08/2022 - DUE CSCOPE: none found - DUE - cscope ordered 07/2022 (dad with hx of colon cancer) DEXA: 02/2022 (osteopenia 2/3, normal spine) (hx of fracture) HEP C SCREEN: 12/2020 negative CACS: none found Current Assessment & Plan Vaccines and screenings reviewed. Questionnaires completed. Health and wellness topics reviewed. Diet and exercise recommendations revisited. Routine blood work ordered today. VACCINES: -Flu vaccine recommended in the fall -TDAP recommended every 10 yrs, due per our records, can get at pharmacy no rx needed. -Shingles vaccine (Shingrix) is recommended. Please call insurance to see if covered. This vaccine is expensive but extremely effective. This is to be administered in 2 separate doses, 2- 6 months apart. This is a killed virus vaccine, so no risk of chicken pox or shingles with administration. The vaccine is approximately 90 % effective to protect against shingles even 5 years out. Side effects of the vaccine can include soreness of the arm at administration site and possible flu-like symptoms after administration. This is a strongly recommended vaccine. SCREENINGS: -Screening pap is UTD, completed 2021 and repeat due 2026 -Screening mammogram is DUE 07/2023, ordered today. -Screening colonoscopy is DUE, ordered today. -Screening DEXA last completed 02/2022, repeat due 02/2024, ordered today. LIFESTYLE MEASURES -consider increasing protein intake provided no issues with kidneys to 1 gram per 1 pound of ideal body weight per not to exceed 150 gram per day. May have to supplement with a protein powder to achieve this goal. -make sure you are avoiding refined carbs such as breads, pasta, cereal, candy, soda, nutrition bars, granola, chips, and sugar sweetened beverages. -eat 5- 7 servings daily of veggies, healthy protein such as chicken, fish, beans, and eggs, and include healthy fats in your diet such as seeds, nuts, olive oil, avocados, and salmon. -exercise 4 - 6 days per week as you are able, 150 minutes total weekly divided up is recommended. -Vitamin D is recommended at 1000 - 5000 IU international units daily. -Always wear sunscreen when you have sun exposure. -64 oz of water is recommended daily. -Dental visits recommended every 6 months. -Eye exam recommended every 2 years, for those with vision problems every year. Other Visit Diagnoses Encounter for screening for other disorder Body mass index (BMI) of 23.0 to 23.9 in adult Other screening mammogram Relevant Orders BI mammo bilateral screening tomosynthesis Screening for colon cancer Relevant Orders Colonoscopy Screening; High Risk Patient; dad with hx of colon cancer Postmenopausal estrogen deficiency Relevant Orders XR DEXA bone density Elevated LDL cholesterol level Relevant Orders Lipid Panel Follow-up in 6 months for routine care + CS visit. Call for sooner follow-up if needed. Scribe Attestation By signing my name below, ICiarra Scribe attest that this documentation has been prepared under the direction and in the presence of Ramandeep Tom DO. documented in this encounter [facility] Work Phone: 01-14-2023 Evaluation + Plan note Associated Problem(s): Recurrent urinary tract infection Reports recurrent UTI, attributes to increased sexual activity. Most recent (01/01/2023) urine culture positive E. Coli with wide range susceptibility. Will start on prophylactic regimen of Macrobid 100 mg to be taken before or after intercourse. Prescription for Keflex x 10 days provided for patient, she will take this if UTI recurs. Diflucan sent to pharmacy in case of fungal infection. Take Diflucan on day 1, repeat on day 3. Refills have been provided should you need them. Be sure to stay well-hydrated by drinking plenty of water. To avoid future urinary tract infections: Avoid tub baths. For females, be sure to wipe the urethra from front to back after urinating. Urinating after sexual intercourse may also help decrease your risk of having another urinary tract infection. Empty bladder at least every 4 hours - prolonged travel or busy day delaying emptying bladder can be a set up for infection. Can consider trial of an cmci-iyo-jcohybm supplement called D-mannose. [facility] Work Phone: 01-14-2023 Miscellaneous Notes Associated Problem(s): Recurrent urinary tract infection Reports recurrent UTI, attributes to increased sexual activity. Most recent (01/01/2023) urine culture positive E. Coli with wide range susceptibility. Will start on prophylactic regimen of Macrobid 100 mg to be taken before or after intercourse. Prescription for Keflex x 10 days provided for patient, she will take this if UTI recurs. Diflucan sent to pharmacy in case of fungal infection. Take Diflucan on day 1, repeat on day 3. Refills have been provided should you need them. Be sure to stay well-hydrated by drinking plenty of water. To avoid future urinary tract infections: Avoid tub baths. For females, be sure to wipe the urethra from front to back after urinating. Urinating after sexual intercourse may also help decrease your risk of having another urinary tract infection. Empty bladder at least every 4 hours - prolonged travel or busy day delaying emptying bladder can be a set up for infection. Can consider trial of an dnmw-fso-vpywypt supplement called D-mannose. Associated Problem(s): Insomnia Stable, continue Ambien 10 mg at bedtime as needed. Refills not needed today, patient to call when needed. Controlled Substance Visit -- [place] to be reviewed when refilling the Ambien. I have considered the risks of abuse, dependence, addiction, and diversion. I believe that it is clinically appropriate for this patient to be prescribed this medication. CSA completed 07/2022. UDS completed 07/2022. documented in this encounter [facility] Work Phone: 01-14-2023 Evaluation + Plan note Associated Problem(s): Insomnia Stable, continue Ambien 10 mg at bedtime as needed. Refills not needed today, patient to call when needed. Controlled Substance Visit -- [place] to be reviewed when refilling the Ambien. I have considered the risks of abuse, dependence, addiction, and diversion. I believe that it is clinically appropriate for this patient to be prescribed this medication. CSA completed 07/2022. UDS completed 07/2022. [facility] Work Phone: 01-14-2023 History of Present illness Narrative Subjective Patient ID: Sandra Sanchez is a 52 y.o. female who presents for Follow-up (Pt presents for 6 month follow up- pt states no concerns at this time. ). HPI Patient presents today for routine 6 month follow-up + CS visit. Patient is doing well overall, however, she is having issues with recurrent UTIs. She states these are related to intercourse, she has boyfriend and is frequently sexually active now. Seen at [facility]2 then by Dr. Gold on 01/01/2023. Reports that she was at with symptoms of suprapubic pain and malodorous urine. She took abx (Macrobid x 2) to completion but the suprapubic discomfort started to return so she called and got in with Dr. Gold. 01/01/2023 culture positive for E. Coli, was treated with Amoxil. She is not having any suprapubic pain or other urinary symptoms at this time. Also requesting rx for Diflucan as she usually gets yeast infection after using antibiotics, would like to have on hand. CHRONIC CONDITIONS: -INSOMNIA Taking Ambien 10 mg at bedtime as needed. She is also prescribed medical marijuana for pain, unable to tolerate other regimens, she is aware that she does not use this with the Ambien. She reports using the Ambien about once weekly. CSA completed 07/2022 UDS competed 07/2022 -NEUROFIBROMATOSIS Managed/followed by neurology and oncology @ [facility]. Saw PM in past, no longer does, did not find it beneficial. Taking Doxepin 100 mg + Lamictal 150 mg daily. Also prescribed medical marijuana for pain. -OSTEOPENIA 02/2022 DEXA showed osteopenia femur (2/3 sites), normal spine (1/3) Repeat due 2023. Review of Systems All other systems reviewed and are negative. Objective BP 100/62 (BP Location: Left arm, Patient Position: Sitting, BP Cuff Size: Small adult) Pulse 76 Temp 36.9 C (98.4 F) (Temporal) Resp 14 Wt 59.5 kg (131 lb 3.2 oz) LMP 12/04/2020 SpO2 95% BMI 21.83 kg/m Physical Exam Vitals and nursing note reviewed. Constitutional: General: She is not in acute distress. Appearance: Normal appearance. She is not toxic-appearing. HENT: Head: Normocephalic and atraumatic. Eyes: Extraocular Movements: Extraocular movements intact. Pupils: Pupils are equal, round, and reactive to light. Neck: Thyroid: No thyromegaly. Cardiovascular: Rate and Rhythm: Normal rate and regular rhythm. Heart sounds: No murmur heard. No friction rub. No gallop. Pulmonary: Effort: Pulmonary effort is normal. Breath sounds: Normal breath sounds. No wheezing, rhonchi or rales. Abdominal: General: Bowel sounds are normal. There is no distension. Palpations: Abdomen is soft. There is no mass. Tenderness: There is no abdominal tenderness. There is no guarding. Musculoskeletal: Right lower leg: No edema. Left lower leg: No edema. Lymphadenopathy: Cervical: No cervical adenopathy. Skin: General: Skin is warm and dry. Neurological: General: No focal deficit present. Mental Status: She is alert and oriented to person, place, and time. Psychiatric: Mood and Affect: Mood normal. Behavior: Behavior normal. Assessment/Plan Problem List Items Addressed This Visit Insomnia - Primary Stable, continue Ambien 10 mg at bedtime as needed. Refills not needed today, patient to call when needed. Controlled Substance Visit -- [place]ARRS to be reviewed when refilling the Ambien. I have considered the risks of abuse, dependence, addiction, and diversion. I believe that it is clinically appropriate for this patient to be prescribed this medication. CSA completed 07/2022. UDS completed 07/2022. Recurrent urinary tract infection Reports recurrent UTI, attributes to increased sexual activity. Most recent (01/01/2023) urine culture positive E. Coli with wide range susceptibility. Will start on prophylactic regimen of Macrobid 100 mg to be taken before or after intercourse. Prescription for Keflex x 10 days provided for patient, she will take this if UTI recurs. Diflucan sent to pharmacy in case of fungal infection. Take Diflucan on day 1, repeat on day 3. Refills have been provided should you need them. Be sure to stay well-hydrated by drinking plenty of water. To avoid future urinary tract infections: Avoid tub baths. For females, be sure to wipe the urethra from front to back after urinating. Urinating after sexual intercourse may also help decrease your risk of having another urinary tract infection. Empty bladder at least every 4 hours - prolonged travel or busy day delaying emptying bladder can be a set up for infection. Can consider trial of an xevz-xkj-efukknk supplement called D-mannose. Relevant Medications cephalexin (Keflex) 500 mg capsule nitrofurantoin, macrocrystal-monohydrate, (Macrobid) 100 mg capsule Other Visit Diagnoses Medication management Yeast infection Relevant Medications fluconazole (Diflucan) 150 mg tablet Healthcare maintenance Follow-up in 6 months for routine care + CPE Call for sooner follow-up if needed. Scribe Attestation By signing my name below, ICiarra Scribe attest that this documentation has been prepared under the direction and in the presence of Ramandeep Tom DO. documented in this encounter [facility] Work Phone: 10-15-2022 History of Present illness Narrative Images from the original note were not included. [facility] Established Patient, Return Visit Referred by Dr. 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 Zapata is a pleasant 50 yo Woman with PMH of nerve sheath tumors who is referred to our clinic to establish care. History detailed below. She has been started on Selumetinib by Dr. 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 She experienced significant dermatologic AEs which led to her PCP reducing her dose by 50% to mitigate those AEs. She continues to report problems with skin rash. She takes Tylenol-Codeine for pain. She recently experienced LLE swelling, went to local ER and work up was negative for DVT or cellulitis. No improvement in pain while on Selumeitnib. She is independent in all ADLs and iADLs. She has a 27 yo daughter with no similar symptoms. No other family members with neurologic or genetic d/o. Parts of HPI have been retrieved from prior notes with appropriate modifications as below NF - Saw Dr. Lilly in the past, was told she has unspecified neurofibromatosis type - She had surgery at 2 locations; right arm, and right inframammilary region, both > 20 years ago, was told there were fibromas no records available. 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 - no problems with anxiety: panic attacks from childhood Cognitive or Speech - none Vision - eye floater started when she started Selumetinib - no evidence of optic glioma ENT - no hearing problem - no dizziness or vertigo - occasional tinnitus: both ears. 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 - no abnormal bleeding or discharge Endocrine - no problems - no high blood pressure - no palpations Skin - no neurofibromas - one cafe au lait spots - no freckling FH - no family member with NF (neither parents, aunts uncles. 27 year daughter is unaffected. Interval History 03/12/2022 Sandra is doing well, she is happy that her hair has been growing since she stopped the [place]. She believe cymbalta has helped with her pain but sometimes she gets exacerbation after physical exertion. No falls, new growth, no worsening swallowing issues, no changes in urine or bowel control. No other complaints. 10/15/2022 Doing well, no new pain, swallowing or balance problems, no falls, new focal weakness or sensory deficits Last Chemo: Selumetinib, was initiated by Dr. Stanton at fall 2020, dose reduced due to side effects and eventually stopped when she came to [facility] August 2021. 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 Panic attacks Past Surgical History: PAST SURGICAL HISTORY Procedure Laterality Date DELIVERY ONLY 1992 , low cervical EXC NEUROFIBROMA/NEUROLEMMOMA CUTAN NRV 1989, 1993, TONSILLECTOMY & ADENOIDECTOMY <AGE 12 Tonsil/adenoidectomy Family History: FAMILY HISTORY Problem Relation Age of Onset No Known Problems Mother Arthritis Father other (MVP) Father Mitral valve prolapse with tachycardia No Known Problems Sister No Known Problems Brother Cancer Maternal Grandfather bladder Social History Tobacco Use Smoking status: Never Smokeless tobacco: Never Substance Use Topics Alcohol use: No Drug use: Yes Types: Marijuana Allergies: Venom-Wasp, Gabapentin, Koselugo [Selumetinib-Vitamin E Tpgs], Methadone, Tramadol, and Tree And Shrub Pollen Current Outpatient Medications Medication Sig DULoxetine (CYMBALTA) 60 mg capsule take 1 capsule by mouth at bedtime zolpidem (AMBIEN) 10 mg tab Take 10 mg by mouth daily at bedtime. lamoTRIgine 150 mg tablet Take 0.5 tablets by mouth once daily. (Patient taking differently: Take 75 mg by mouth daily at bedtime.) DOXEPIN 100 MG CAP Take one(1) tablet daily at bedtime. (Patient taking differently: Take 150 mg by mouth daily at bedtime.) Current Facility-Administered Medications Medication Dose Route Frequency perflutren lipid microspheres 1.3 mL in NaCl (PF) 0.9% 10 mL injection (DEFINITY) INTRAVENOUS DIRECTED PRN sodium chloride 0.9 % (flush) 10 mL (BD POSIFLUSH) 10 mL INTRAVENOUS DIRECTED PRN sodium chloride 0.9 % (flush) 10 mL (BD POSIFLUSH) 10 mL INTRAVENOUS DIRECTED PRN Review of systems: Constitutional: No recent fever or weight loss. Eyes: No history of glaucoma or cataracts. ENMT: No recent ear infection, nasal congestion, mouth sores or sore throat. CV: No history of chest pain, palpitations or leg swelling. Respiratory: No history of SOB, asthma or recent cough. Gastrointestinal: No history of nausea, vomiting, dysphagia or abdominal pain. Genitourinary: No history of hematuria or dysuria. Musculoskeletal: No complaint of arthritis, unstable gait or arm/leg weakness. Psychiatric: No history of hallucinations or depression or anxiety. ROS Neurological: No complaint of headache. No complaint of tinnitus. No complaint of decreased hearing. No complaint of diplopia. No complaints of decreased visual acuity. No complaint of arm/leg numbness. No problem with limb coordination. No complaint of syncope, seizures or disorientation. Objective Physical Exam: BP 127/71 Pulse 98 Temp 36.7 C (98.1 F) (Oral) Resp 18 Wt 59.6 kg (131 lb 8 oz) LMP 07/17/2021 (Approximate) SpO2 98% BMI 21.55 kg/m General appearance: well appearing, in no acute distress, alert Head: NC/AT Eyes: clear, anicteric Oropharynx: clear, no lesions Neck: supple, no LAD Lungs: CTA bilaterally, no W/C Heart: RR without murmur noted Abdomen: soft, NT/ND Extremities: warm, no cyanosis or edema Skin: color, texture, and turgor unremarkable. No rashes or lesions. NEUROLOGICAL EXAM: General: Awake, alert, speech fluent, comprehension, naming, repetition intact. Short and grants administrator memory intact. CN: PERRL, EOMI without nystagmus, VFF to confrontation, facial sensation and strength are normal and symmetric, hearing is intact to finger rub bilaterally, palate and tongue movements are intact and symmetric. Motor: Normal tone, bulk and strength bilaterally. Reflexes: 2/4 and symmetric, plantar stimulation is flexor. Coordination: FNF, MIAN, HTS intact. Sensation: diminished PP, LT, and Temp in RLE to knee level Gait: Able to walk on toes, heels, and tandem with mild difficulty but did not require assistance. Romberg normal. Karnofsky performance status: 80 - Normal activity with effort, some signs or symptoms of disease. ECOG performance status: 1 - Restricted in physically strenuous activity but ambulatory and able to carry out work of a light or sedentary nature, e.g., light house work or office work. PHQ 2 and 9 Total Scores 06/21/2022 PHQ-2 Score 0 PHQ-9 Score 0 Labs: CBC Latest Ref Rng & Units 11/22/2003 WBC 4.0 - 11.0 k/uL 5.13 RBC 4.2 - 5.4 M/uL 4.19(A) HEMOGLOBIN 12.0 - 16.0 g/dL 13.3 HEMATOCRIT 37 - 47 % 39.2 MCV 80 - 100 fL 93.6 MCH 27 - 34 pG 31.7 MCHC 32 - 36 % 33.9 RDW-CV 11.7 - 15.0 % 12.5 PLATELETS 150 - 400 K/uL 155 MPV 7.3 - 11.1 fL 11.8(A) CMP Latest Ref Rng & Units 09/25/2001 11/22/2003 SODIUM 132 - 148 mmol/L 140 139 POTASSIUM 3.5 - 5.0 mmol/L 4.9 4.0 CHLORIDE 98 - 110 mmol/L 100 100 CO2 24 - 32 mmol/L 35(A) 30 GLUCOSE 65 - 110 mg/dL 103 99 BUN 8 - 25 mg/dL 11 16 CREATININE 0.7 - 1.4 mg/dL 0.8 0.4(A) PROTEIN, TOTAL 6.0 - 8.4 g/dL 7.3 8.8(A) ALBUMIN 3.5 - 5.0 g/dL 4.3 4.4 CALCIUM, TOTAL 8.5 - 10.5 mg/dL 10.1 9.7 BILIRUBIN, TOTAL 0.0 - 1.5 mg/dL 0.5 0.3 AST 7 - 40 U/L 22 31 ALT 0 - 45 U/L 13 26 ALKALINE PHOSPHATASE 40 - 150 U/L 114 89 Final Pathology: N/A Imaging: MRI Report MRI BRAIN WWO CONTRAST Collected: 12/26/2009 5:57 PM (Final result) Reviewed prior MRIs, innumerable peripheral nerve sheath tumors in paraspinal, pelvic, and LE areas. No vestibular schwannomas or optic pathway gliomas. 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 MQ: [id number] Contrast: IV administration of 12 ml of Dotarem COMPARISON: MRI cervical spine and neck 09/17/2021, MRI outside hospital complete spine 12/24/2019 RESULT: CERVICAL: Counting reference: Craniocervical junction. Anatomic Variants: None. Localizer images: Multiple paravertebral and paraspinal T2 hyperintense lesions are noted in the cervical and thoracic spine, representing numerous multilevel nerve sheath tumors. Alignment: Mild reversal of the cervical lordosis centered at C4 with stepwise grade 1 anterolisthesis from C2-C4 and minimal stepwise retrolisthesis from C4-C6. Craniocervical junction: Craniocervical junction is normal. Cord: The cervical spinal cord is within normal limits of signal intensity and morphology. There is no pathologic intradural enhancement noted on postcontrast imaging. Bone marrow signal/fracture: No evidence of pathologic marrow infiltration. No evidence of prior fracture. Cervical soft tissues: There are again noted multiple enlarged heterogeneously enhancing paravertebral soft tissue masses most likely representing extraforaminal nerve sheath tumors in the lower cervical and upper thoracic levels. Right extraforaminal nerve sheath tumor at C5-C6 expands the right transverse foramen with bony remodeling of the adjacent facet and vertebral body and partial encasement of the right cervical vertebral artery, associated with the right C6 nerve. This measures approximately 1.4 x 1.3 cm in the right transverse foramen (series 22, image 17). Additional fusiform enlargement of bilateral extraforaminal cervical nerves with throughout the remainder of the lower cervical levels and multiple enhancing T2 hyperintense masses in the neck, similar in size and configuration to prior MRI 09/17/2021. The largest mass is present in the left neck at the level of the thyroid gland, situated between the left common carotid artery and internal jugular vein measuring 1.8 x 2.3 x 4.8 cm, similar in size and configuration compared to the prior MRI. Canal and foramina: C2-C3: Canal and foramina are patent. C3-C4: The canal and bilateral foramina are patent. C4-C5: Mild to moderate left foraminal stenosis from facet and uncovertebral hypertrophy. Mild posterior disc osteophyte. The canal and right foramen are patent. C5-C6: Moderate to severe bilateral foraminal stenoses from facet and uncovertebral hypertrophy. Mild canal stenosis from posterior disc osteophyte complex. C6-C7: Canal and foramina are patent. C7-T1: Canal and foramina are patent. THORACIC: Counting reference: Craniocervical and lumbosacral junctions. For the purposes of this report, L4-5 is considered the level of the iliac crest and assume there are 5 lumbar-type vertebrae. Anatomic variant: None. Alignment: Alignment is anatomic. Cord: The thoracic spinal cord is within normal limits of signal intensity and morphology. No pathologic intradural enhancement is noted on postcontrast imaging. Bone marrow signal/fracture: No evidence of pathologic marrow infiltration. No evidence of prior fracture. Posterior elements are normal in morphology and alignment. Intraosseous hemangioma in the inferior T10 vertebral body. Thoracic soft tissues: Numerous lobulated T2 hyperintense paravertebral soft tissue masses along the bilateral anterolateral vertebral margins in the thoracic spine with heterogeneous internal T2 signal and enhancement, compatible with predominantly extraforaminal nerve sheath tumors. Overall size and configuration of the mass is is similar to the prior MRI from 12/28/2019 without substantial interval change. The majority of the larger masses are present from the T1-T5 levels. Some of the nerve sheath tumors extending to the foramen with mild expansion of the bone foramen in the upper thoracic levels. The masses mildly displace the esophagus and trachea anteriorly. Some of the masses abut the aortic arch. Additional smaller nerve sheath tumors are present bilaterally in the mid to lower thoracic levels, greater on the left, the larger masses along the T8 and T9 lateral vertebral artery origins. These also appear stable in size and configuration compared to 12/28/2019. Canal and foramina: There is enlargement with bony remodeling of the bilateral T2-T6 neural foramen from the foraminal and extraforaminal nerve sheath tumors. There is no intradural extension of the nerve sheath tumors. No significant canal or foraminal stenoses. LUMBAR: Counting reference: Craniocervical and lumbosacral junctions. For the purposes of this report, L4-5 is considered the level of the iliac crest and assume there are 5 lumbar-type vertebrae. Anatomic variant: None. Alignment: Alignment is anatomic. Bone marrow signal/fracture: No evidence of pathologic marrow infiltration. No evidence of prior fracture. Posterior elements are normal in morphology and alignment. Mild degenerative disc space narrowing with associated type I signal degenerative endplate marrow changes at L2-L3. There is expansion of the sacral canal and neural foramina with bony remodeling partially visualized nerve sheath tumors, the largest predominantly in the right S3-S4 and S4-S5 foramen. Conus: The conus is within normal limits of signal intensity and morphology. The conus terminates at the L1-L2 level. No pathologic intradural enhancement on postcontrast imaging. Paraspinal soft tissues: Numerous paravertebral retroperitoneal lobulated rounded soft tissue masses compatible with nerve sheath tumors, along the bilateral anterior and lateral vertebral body margins in the lumbar spine, abutting the aorta and IVC, bilateral common iliac arteries with multiple masses seen in the visualized pelvis. Compared to the prior MRI 12/28/2019, no substantial interval change in the size or configuration of these masses. There is no significant foraminal or intradural involvement in the lumbar spine by the nurse sheath tumors.. Canal and foramina: There is mild bilateral foraminal stenosis from facet hypertrophy at L4-L5. Otherwise, no significant lumbar canal or foraminal stenosis within the constraints of the study. Sacrum and iliac wings: Multiple nerve sheath tumors within the sacral canal and bilateral sacral neural foramen involving the bilateral S1-S4 nerves with and bony remodeling and expansion of the right S3-S5 neural foramen. Please see separate report for dedicated MRI pelvis imaging findings. Impression: IMPRESSION: Multiple soft tissue neck masses predominantly extra foraminal in the prevertebral and paravertebral region, compatible with nerve sheath tumors. No substantial interval change compared to the prior MRI from 09/17/2021. Multiple prevertebral, paravertebral soft tissue masses predominantly in the upper thoracic spine, some involving the foramen with bony expansion of the bilateral neural foramina from the larger masses at T2-T6, compatible with nerve sheath tumors. No substantial interval change compared to the prior MRI 12/28/2019. Multiple prevertebral, paravertebral and retroperitoneal soft tissue masses along the lumbar spine and sacrum, without substantial interval change from MRI 12/28/2019, compatible with nerve sheath tumors. No intradural involvement of the nerve sheath tumors. No pathologic intradural enhancement. The cervical, thoracic cord, conus and cauda equina nerve roots are within normal. Cervical Anatomic Variant: None. Assume 7 cervical vertebrae with counting from the craniocervical junction. Anatomic Thoracic/Lumbar Variant: None. L4-5 is considered the level of the iliac crest and assume there are 5 lumbar-type vertebrae. Composing Machine Operator/Tender: [facility] Transcribe Date/Time: Oct 08 2022 12:16P Dictated by : JAD MARTI MD This examination was interpreted and the report reviewed and electronically signed by: JAD MARTI MD on Oct 08 2022 1:15PM EST Assessment & Plan Ms. Sanchez is a pleasant 51 yo woman with heavy disease burden of peripheral nerve sheath tumors. Apart from the diffuse nerve sheath tumors, She only has one KENRICK, no parents or children with genetic disorders or similar symptoms. She does NOT meet the revised diagnostic criteria of NF1 or mosaic NF1 (Yanet Aguayo., Sandrita Carroll., Wolana maria P. et al. Revised diagnostic criteria for neurofibromatosis type 1 and Legius syndrome: an international consensus recommendation. [employer] Med 23, 3948-3548 (2020). https://doi.org/10.1038/i77652-54 [email or web address]). Her most recent genetic testing is negative for germline NF1 mutations. And her prior genetic testing that was done in the past and showed VUS in SMARCB1 with no mutations in NF1 or NF2 though unclear to me if that was rechecked with her most recent test. No available path report to confirm if the removed lesions were schwannomas or neurofibromas. 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 She had no clinical benefit from MEKi, and no follow up MRIs were obtained to determine if there was any radiographic response given the departure of her treating MD from so we elected to stop it given side effects and she has no clinical progression since then. Most recent C spine and neck soft tissue MRIs reviewed with the patient, no radiographic progression Plan: - Annual surveillance imagine with MRI spine and pelvis with contrast. - If diagnosis remain unknown and in the event of disease progression will discussed with NSGY team about tissue acquisition or decompression of any of these lesions then we can run NGS from tumor tissue - Continue Cymbalta 60 mg QHS for neuropathic pain, uptitrate if needed. I spent a total of 40 minutes on the date of the service which included preparing to see the patient, [id number] patient care, completing clinical documentation, obtaining and/or reviewing separately obtained history, performing a medically appropriate examination, counseling and educating the patient/family/caregiver and ordering medications, tests, or procedures. Dre Monte MD, [facility] Associate Staff [facility] Patient Care Team: Ramandeep Tom DO as PCP - General (Family Medicine) documented in this encounter [facility] 10-15-2022 Nurse Note Additional intake questions: Has the patient had fever, nausea, vomiting, diarrhea, constipation, fatigue for > 1 week? No Does the patient have a decreased appetite? No Does patient want to see a Elevator Serviceman? No (yes to any of above refer patient to schedulers for dietitian appointment) ) Does patient have any new or increased numbness or tingling of extremities? No Is patient interested in fertility information? No Does patient need any prescription refills? No Does patient have an advanced directive in place? No, Patient referred to Resource Center documented in this encounter [facility] 10-08-2022 History of Present illness Narrative Radiology Service Progress Note DATE OF SERVICE: October 08, 2022 TIME: 9:51 AM PATIENT IDENTITY VERIFICATION COMPLETED USING TWO (2) STANDARD IDENTIFIERS: Name and Date of confirmed by patient verbally. FALL SCREENING: Has the patient had 2 falls in the last year or 1 fall with injury or currently using an Ambulatory Assistive Device (Walker, Cane, Wheelchair, Crutches, etc.)? No PATIENT GENDER DATA: Female. status: : No status: NO. PATIENT RELEVANT IMPLANT DATA REVIEWED: Yes ALLERGIES: Reviewed and unchanged CONTRAST ALLERGY: NO. EXAM: MRI - CONTRAST TYPE: GROUP II PERIPHERAL IV DATA: Ambulatory: A peripheral IV was started in the Right antecubital site with a Angio cath: 22 gauge. RADIOLOGY DEPARTMENT: MR; Exam(s) Completed: Lower MSK: Pelvis, bilateral Spine: Cervical spine, Thoracic spine, and Lumbar spine SIGNATURE: RT Jeff(Ophelia) PATIENT NAME: Sandra Sanchez DATE: October 08, 2022 TIME: 9:51 AM documented in this encounter [facility] 07-29-2022 Evaluation + Plan note Associated Problem(s): Osteopenia 02/2022 DEXA showed osteopenia femur (2/3 sites), normal spine (1/3) Repeat due 2023 Vitamin D and calcium supplements recommended. Weight bearing activity recommended. [facility] Work Phone: 07-29-2022 Miscellaneous Notes Associated Problem(s): Osteopenia 02/2022 DEXA showed osteopenia femur (2/3 sites), normal spine (1/3) Repeat due 2023 Vitamin D and calcium supplements recommended. Weight bearing activity recommended. Associated Problem(s): Medicare annual wellness visit, subsequent Breast cancer screening due, mammogram ordered 07/29/2022 Colon cancer screening due, colonoscopy ordered 07/28/2022 Cervical cancer screening completed 09/2021. Bone density screening completed 02/2022, due for repeat in 2023. Shingrix vaccines recommended, to be done at pharmacy. Labs recently done with specialist, deferred at this time. Associated Problem(s): Insomnia Stable, continue Ambien 10 mg daily CSA completed today. UDS ordered today. Associated Problem(s): Neurofibromatosis (CMS/HCC) Managed/followed by neurology and oncology @ [facility]. Saw PM in past, no longer does, did not find it beneficial. Taking Doxepin 100 mg + Lamictal 150 mg daily. Also prescribed medical marijuana for pain. Stable, will continue with present regimen. documented in this encounter [facility] Work Phone: 07-29-2022 Evaluation + Plan note Associated Problem(s): Medicare annual wellness visit, subsequent Breast cancer screening due, mammogram ordered 07/29/2022 Colon cancer screening due, colonoscopy ordered 07/28/2022 Cervical cancer screening completed 09/2021. Bone density screening completed 02/2022, due for repeat in 2023. Shingrix vaccines recommended, to be done at pharmacy. Labs recently done with specialist, deferred at this time. [facility] Work Phone: 07-29-2022 Evaluation + Plan note Associated Problem(s): Insomnia Stable, continue Ambien 10 mg daily CSA completed today. UDS ordered today. [facility] Work Phone: 07-29-2022 Evaluation + Plan note Associated Problem(s): Neurofibromatosis (CMS/HCC) Managed/followed by neurology and oncology @ [facility]. Saw PM in past, no longer does, did not find it beneficial. Taking Doxepin 100 mg + Lamictal 150 mg daily. Also prescribed medical marijuana for pain. Stable, will continue with present regimen. [facility] Work Phone: 07-29-2022 History of Present illness Narrative Subjective Reason for Visit: Sandra Sanchez is an 51 y.o. female here for a Medicare Wellness visit. Past Medical, Surgical, and Family History reviewed and updated in chart. Reviewed all medications by prescribing practitioner or clinical pharmacist (such as prescriptions, OTCs, herbal therapies and supplements) and documented in the medical record. HPI Patient Self Assessment of Health Status Patient Self Assessment: Good Nutrition and Exercise Current Diet: Well Balanced Diet Adequate Fluid Intake: Yes Caffeine: Yes Exercise Frequency: Regularly Functional Ability/Level of Safety Cognitive Impairment Observed: No cognitive impairment observed Cognitive Impairment Reported: No cognitive impairment reported by patient or family Home Safety Risk Factors: None Patient Care Team: Ramandeep Tom DO as PCP - General Ramandeep Tom DO as PCP - [facility] Attributed Provider Patient states that she is doing well overall. She recently had labs done @ [facility] with specialist. She has seen thoracic surgeon regarding her swallowing. She has undergone barium test, they want her to do an endoscopy No surgery at this time, felt to be small and surgery would not be beneficial. She just drinks a lot of liquids with food, swallows certain ways. She is not choking or having difficulty breathing. She is taking the Ambien as needed at bedtime. She also is prescribed mm for pain, as she was intolerant to other pain regimens in the past. She does not take the mm with the Ambien but needs the Ambien to sleep some nights. No side effects reported. NO chest pain, SOB, palpitations. Review of Systems Respiratory: Negative for choking and shortness of breath. Cardiovascular: Negative for chest pain. Gastrointestinal: Negative for abdominal pain, blood in stool, constipation and diarrhea. Psychiatric/Behavioral: Positive for sleep disturbance. All other systems reviewed and are negative. Objective Vitals: BP 107/71 (BP Location: Left arm, Patient Position: Sitting, BP Cuff Size: Adult) Pulse 78 Temp 37.2 C (99 F) (Temporal) Resp 14 Ht 1.651 m (5' 5) Wt 59.8 kg (131 lb 12.8 oz) LMP 12/04/2020 SpO2 96% BMI 21.93 kg/m Physical Exam Vitals reviewed. Constitutional: General: She is not in acute distress. Appearance: Normal appearance. She is not toxic-appearing. HENT: Head: Normocephalic and atraumatic. Eyes: Extraocular Movements: Extraocular movements intact. Pupils: Pupils are equal, round, and reactive to light. Cardiovascular: Rate and Rhythm: Normal rate and regular rhythm. Heart sounds: No murmur heard. No friction rub. No gallop. Pulmonary: Effort: Pulmonary effort is normal. Breath sounds: Normal breath sounds. No wheezing, rhonchi or rales. Abdominal: General: Bowel sounds are normal. There is no distension. Palpations: Abdomen is soft. There is no mass. Tenderness: There is no abdominal tenderness. There is no guarding. Musculoskeletal: General: Normal range of motion. Right lower leg: No edema. Left lower leg: No edema. Lymphadenopathy: Cervical: No cervical adenopathy. Skin: General: Skin is warm and dry. Neurological: General: No focal deficit present. Mental Status: She is alert and oriented to person, place, and time. Gait: Gait normal. Psychiatric: Mood and Affect: Mood normal. Behavior: Behavior normal. Assessment/Plan Problem List Items Addressed This Visit Nervous Insomnia Overview Taking Ambien 10 mg at bedtime as needed. She is also prescribed medical marijuana for pain, unable to tolerate other regimens, she is aware that she does not use this with the Ambien. CSA is DUE, last completed 09/2021 UDS is DUE, last completed 03/2019 Current Assessment & Plan Stable, continue Ambien 10 mg daily CSA completed today. UDS ordered today. Neurofibromatosis (CMS/HCC) Overview Managed/followed by neurology and oncology @ [facility]. Saw PM in past, no longer does, did not find it beneficial. Taking Doxepin 100 mg + Lamictal 150 mg daily. Also prescribed medical marijuana for pain. Current Assessment & Plan Managed/followed by neurology and oncology @ [facility]. Saw PM in past, no longer does, did not find it beneficial. Taking Doxepin 100 mg + Lamictal 150 mg daily. Also prescribed medical marijuana for pain. Stable, will continue with present regimen. Musculoskeletal Osteopenia Overview 02/2022 DEXA showed osteopenia femur (2/3 sites), normal spine (1/3) Current Assessment & Plan 02/2022 DEXA showed osteopenia femur (2/3 sites), normal spine (1/3) Repeat due 2023 Vitamin D and calcium supplements recommended. Weight bearing activity recommended. Other Medicare annual wellness visit, subsequent - Primary Overview Breast cancer screening due, mammogram ordered 07/29/2022 Colon cancer screening due, colonoscopy ordered 07/28/2022 Cervical cancer screening completed 09/2021. Bone density screening completed 02/2022, due for repeat in 2023. Shingrix vaccines recommended, to be done at pharmacy. Labs recently done with specialist, deferred at this time. Current Assessment & Plan Breast cancer screening due, mammogram ordered 07/29/2022 Colon cancer screening due, colonoscopy ordered 07/28/2022 Cervical cancer screening completed 09/2021. Bone density screening completed 02/2022, due for repeat in 2023. Shingrix vaccines recommended, to be done at pharmacy. Labs recently done with specialist, deferred at this time. Other Visit Diagnoses Screening for colon cancer Medication management Breast cancer screening by mammogram Follow-up in 6 months for routine visit + CS visit. Scribe Attestation By signing my name below, ICiarra Scribe attest that this documentation has been prepared under the direction and in the presence of Ramandeep Tom DO. documented in this encounter [facility] Work Phone: 07-15-2022 Miscellaneous Notes Called pt and left a message with upcoming appointments. Also, sent Dataslide[employer] message, set phone call reminder and mailed out an appointment reminder. documented in this encounter [facility] 07-03-2022 History of Present illness Narrative Radiology Service Progress Note PATIENT NAME: Sandra Sanchez DATE OF SERVICE: July 03, 2022 TIME: 8:17 AM PATIENT IDENTITY VERIFICATION COMPLETED USING TWO (2) IDENTIFIERS: Name and Date of confirmed by patient verbally. FALL SCREENING: Has the patient had 2 falls in the last year or 1 fall with injury or currently using an Ambulatory Assistive Device (Walker, Cane, Wheelchair, Crutches, etc.)? No PATIENT GENDER DATA: Female. status: : No status: N/A PATIENT RELEVANT IMPLANT DATA REVIEWED: Yes RADIOLOGY DEPARTMENT: General X-ray: Exam(s) Completed: GI/ Procedure(s): Esophogram with barium contrast PERIPHERAL IV DATA: Not applicable SIGNED BY: RT Jenifer(R) July 03, 2022 8:17 AM documented in this encounter [facility] 06-24-2022 History of Present illness Narrative Images from the original note were not included. Heart [facility] SECTION OF HEART FAILURE and CARDIAC TRANSPLANT MEDICINE OUTPATIENT VISIT DATE June 25, 2022 OUTPATIENT VISIT TYPE Consultation PRIMARY CARE PHYSICIAN: Ramandeep Tom DO [address] [place] [address] CHIEF COMPLAINT: Cardiac consult HISTORY OF PRESENT ILLNESS: Sandra Sanchez is a 51 y/o female from [place], [place], referred by Dr. 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 Patient denies any past cardiac problems. She previously followed at , where she was receiving a ?chemotherapy agent ?kusleo that required periodic echocardiogram monitoring. 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 Clinically, patient denies KEMP, orthopnea, chest pain, palpitations, or syncope. She reports mild lymphedema of her left leg and mild edema of the right leg due to the neurofibromatosis. 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 Panic attacks PAST SURGICAL HISTORY Procedure Laterality Date DELIVERY ONLY , low cervical EXC NEUROFIBROMA/NEUROLEMMOMA CUTAN NRV 1989, 1993, TONSILLECTOMY & ADENOIDECTOMY <AGE 12 Tonsil/adenoidectomy SOCIAL HISTORY Social History Tobacco Use Smoking status: Never Smokeless tobacco: Never Substance Use Topics Alcohol use: No Drug use: No FAMILY HISTORY Problem Relation Age of Onset Arthritis Father other (MVP) Father Mitral valve prolapse with tachycardia Cancer Maternal Grandfather bladder ALLERGIES: ALLERGIES Allergen Reactions Venom-Wasp Anaphylaxis Gabapentin Other: See Comments Urinary retention Koselugo [Selumetin* Other: See Comments Rash, red skin, swelling, diarrhea/constipation, visual changes, Methadone Mental Status Change Irritability and weight loss Tramadol Mental Status Change Tree And Shrub Poll* Other: See Comments Runny eyes, rhinorrhea, sneezing. Spring and fall. CURRENT MEDICATIONS: DULoxetine (CYMBALTA) 60 mg capsule^take 1 capsule by mouth at bedtime^Disp: 30 capsule^Rfl: 2 zolpidem (AMBIEN) 10 mg tab^Take 10 mg by mouth daily at bedtime.^Disp: ^Rfl: lamoTRIgine 150 mg tablet^Take 0.5 tablets by mouth once daily.^Disp: ^Rfl: 0 (Patient taking differently: Take 75 mg by mouth daily at bedtime.) DOXEPIN 100 MG CAP^Take one(1) tablet daily at bedtime.^Disp: 30^Rfl: 1 (Patient taking differently: Take 150 mg by mouth daily at bedtime.) REVIEW OF SYSTEMS: CONSTITUTION: Negative for: Fever, Night sweats and Recent weight change HEENT: Negative for: Hearing loss RESPIRATORY: Negative for: Cough and Difficulty breathing GASTROINTESTINAL: Negative for: Melena, Nausea, Diarrhea, Abdominal distention and Early satiety MUSCULOSKELETAL: Negative for: Arthralgias and Myalgias NEUROLOGICAL: Positive for: Headaches Negative for: Dizziness SKIN: Negative for: Rash EYES: Negative for: Visual disturbance CARDIOVASCULAR: Positive for: Leg swelling Negative for: Chest pain, Arrhythmia and Pre-syncope GENITOURINARY: Negative for: Difficulty urinating PATIENT ENTERED DATA: KCCQ-12 Scores 06/21/2022 Physical Limitation Score 100 (Class I Heart Failure ) Symptom Frequency Score 81.25 (Class II Heart Failure ) Quality of Life Score Incomplete Social Limitation Score 100 (Class I Heart Failure) Overall Summary Score Incomplete PHQ-9 06/08/2013 07/05/2021 06/21/2022 Score 6 2 0 PROMIS Global Health - (T-Scores - the mean of general population = 50. Five points is a clinically meaningful difference.) 07/05/2021 06/21/2022 Physical T-Score 44.9 50.8 Mental T-Score 48.3 56 PHYSICAL EXAMINATION: BP 109/62 Pulse 87 Ht 166.4 cm (5' 5.5) Wt 58.1 kg (128 lb) LMP 07/17/2021 (Approximate) SpO2 98% BMI 20.98 kg/m General: In no acute distress. Skin: Warm, no rash Eyes: Extra ocular movements intact Oropharynx: Mucosa moist Neck: No jugular venous distention, no carotid bruits, carotids have a normal upstroke, no palpable thyromegaly. Lungs: Clear to auscultation bilaterally, no wheezing or rhonchi. Heart: Regular rhythm, PMI not displaced, S1, S2 normal, no S3, no S4, no heaves, no rub and no murmur. Abdomen: Soft, nontender, bowel sounds normal, no palpable organomegaly, no bruits. Extremities: Trace bilateral edema Neuro: Oriented to person, place and time, alert, cooperative, gait coordinated. CARDIOVASCULAR MEDICINE TESTING: EKG: normal sinus rhythm, normal IMPRESSION: No known cardiac pathology. Normal EKG. 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 Left ventricular systolic function is normal. EF = 62 5% (2D biplane) - The right ventricle is normal in size. Right ventricular systolic function is normal. - There are no significant valvular abnormalities. I personally interviewed, confirmed and edited the above information as obtained by others. I personally spent 40 minutes in total time involved in the management and care of this patient. documented in this encounter [facility] 05-21-2022 Miscellaneous Notes Thoracic Surgery Consultation - review of records for appointment scheduling Received medical records from the office of Dre Monte [address] [place], [place] [id number] [facility] [id number] Patient is being referred to Unspecified/First Available (assigned to Dr. Montgomery) by Dr. Monte for Symptomatic Zenker diverticulum Outside hospital records scanned / in epic / Care Everywhere Pathology: Procedures: Imaging . PET/CT: CT (chest, abd, pelvis): MRI: UGI: Modified esophagram 05/16/22 RESULT: Intermittent cricoid bar with small Zenker's diverticulum. See speech pathology notes . Cardiopulmonary Testing . 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 Montgomery for Zenker's diverticulum. Bartolome Cleveland RN documented in this encounter [facility] 05-17-2022 Miscellaneous Notes Time Frame: First available Orders: Consult to cardiothoracic surgery Provider: Any Referring: Lobbous Diagnosis: NF1 and Zenker diverticulum documented in this encounter [facility] 05-17-2022 Miscellaneous Notes Called Sandra, per Dr. Reno's staff message. Per Sandra she would like to wait to be referred to a surgeon. She doesn't want to cause more issues when she has found ways to cope with the issue. I did tell her to let us know if she changes her mind or wants to just be assessed by the surgeon. I also told her to let us know if anything changes in her swallowing that would warrant intervention. Sandra said she would call if anything changes since right now she just drinks a lot of water when eating and it goes down. Cheryl Ponce RN documented in this encounter [facility] 05-15-2022 Note HNO ID: [id number] Author: Christina De Anda [facility] [employer] Service: ? Author Type: Speech Language Pathologist Type: Progress Notes Filed: 05/15/2022 5:03 PM Note Text: Episode Visit Count: Visit count could not be calculated. Make sure you are using a visit which is associated with an episode. Start of Care Date: 05/15/22 Onset Date: 05/19/21 Patient Identified by Name and Date of : Yes [facility] MODIFIED BARIUM SWALLOW PLAN OF CARE: Impression: Evidence of: Oropharyngeal dysphagia;Concern for possible esophageal impairment An elevated risk for aspiration: No Swallow Efficiency: Preserved RESULTS: - Marked obstruction of flow in PE segment (level C5 - C6) with food pocketing noted (Please refer to Radiological evaluation results) - slow, prolonged mastication secondary to missing teeth - reduced esophageal emptying while in the upright posture which appears to be impacting the PE segment RECOMMENDATION: Diet Recommendations: Regular Consistency;Thin Liquids IDDSI Level 0 Swallowing Precautions Recommendations: Alternate bites and sips;Double swallows;Feed / Eat at a slow rate;Maintain an upright position 20-30 minutes following all oral intake;Medications whole in puree;Self-monitoring;Sit upright 90 degrees for all PO;Small Bite/Sip [employer] Recommendations: Diet;Swallowing Precautions - no further Speech Therapy is recommended Recommended Consults: GI Results and Recommendations Discussed With: Patient Goals for Modified Barium Swallow: created for 05/15/2022 only. The patient will be able to demonstrate adequate return of knowledge of today's fluoroscopic assessment and recommendations to maximize overall safety with oral intake. (baseline = no knowledge). GOAL MET SUBJECTIVE: Sandra Sanchez is a 51 year old female seen today for a Modified Barium Swallow (MBS) Study. - food gets stuck going down (Pt note region of lower throat/ clavicle) Patient Goals: eat/drink without difficulties - I turn my neck to get it down - Pt note reflux type symptoms - sometimes it bubbles back up - no recent PNA Prior Functional Level: Within Functional Limits OBJECTIVE: MEASURES WITH LEVEL OF FUNCTION: Instrumental Swallow Assessment Type: Modified Barium Swallow Study Modified Barium Swallow Views: Lateral position MBS Consistencies Tested: Thin Barium Liquids;Mildly Thick Barium Liquids ([place] Thick);Pureed with Barium Paste;Minced and Moist with Barium Paste;Soft and Bite-Sized with Barium Paste;Solid with Barium Paste Oral Phase: As Follows Lip Closure: No labial escape/anterior loss of bolus Tongue Control During Bolus Hold: Cohesive bolus between tongue to palatal seal Bolus Preparation/Mastication: Slow prolonged mastication with complete re-collection necessary Bolus Transport/Lingual Motion: Brisk tongue motion for A-P movement of the bolus Oral Residue: Trace residue lining oral structures Initiation Of Pharyngeal Swallow: Bolus head at posterior laryngeal surface of epiglottis Pharyngeal Phase: As Follows Soft Palate Elevation: No bolus between soft palate/pharyngeal wall Laryngeal Elevation: Complete superior movement of thyroid cartilage with contact of arytenoids to epiglottic petiole Anterior Hyoid Excursion: Complete anterior movement Epiglottic Movement: Complete inversion Laryngeal Vestibular Closure/Height of the Swallow: Complete - no air/contrast in laryngeal vestibule Pharyngeal Stripping Wave: Present, however, diminished Pharyngeal Contraction (A/P View Only): Not tested Pharyngoesophageal Segment Opening: Minimal distension/incomplete duration with marked obstruction of flow of bolus (Level C 5 - C 6) Tongue Base Retraction: Trace column of contrast or air between tongue base and pharyngeal wall;Narrow column of contrast or air between tongue base and pharyngeal wall Pharyngeal Residue: Trace residue within or on the pharyngeal structures Esophageal Clearance In An Upright Position: Esophageal retention;Esophageal retention with retrograde flow through the pharyngoesophageal segment Penetration-Aspiration Scale for MBSS: Completed Level 1-Material does not enter airway : Regular Consistency;Soft and Bite-Sized IDDSI Level 6;Minced and Moist IDDSI Level 5;Pureed IDDSI Level 4;Mildly Thick Liquids IDDSI Level 2 ([place] Thick);Thin Liquids IDDSI Level 0 Education: Education Learning Preferences: Demonstration;Explanation;Perform ance Barriers: None Learning/Educational Needs: Compensatory Strategies;Diet Modification(s);Rehabilitation Techniques and Procedures;Swallowing Skills;MBSs results Education Provided: Yes, see treatment interventions for education provided Education Provided To: Patient Education Mode/Type: Demonstration;Explanation/Discuss ion;Performance;Teach Back;Video Response to Education/Teach Back: States/Identifies;Return Demonstration TREATMENT: Pe (more content not included)... [facility] 05-15-2022 Note HNO ID: [id number] Author: RT Ayah(Ophelia) Service: Radiology Author Type: Technologist Type: Progress Notes Filed: 05/15/2022 2:07 PM Note Text: Radiology Service Progress Note PATIENT NAME: Sandra Sanchez DATE OF SERVICE: May 15, 2022 TIME: 2:06 PM PATIENT IDENTITY VERIFICATION COMPLETED USING TWO (2) IDENTIFIERS: Name and Date of confirmed by patient verbally. FALL SCREENING: Has the patient had 2 falls in the last year or 1 fall with injury or currently using an Ambulatory Assistive Device (Walker, Cane, Wheelchair, Crutches, etc.)? No PATIENT GENDER DATA: Female. status: : No status: NO. PATIENT RELEVANT IMPLANT DATA REVIEWED: Not Applicable RADIOLOGY DEPARTMENT: General X-ray: Exam(s) Completed: GI/ Procedure(s): Modified barium swallow with barium contrast PERIPHERAL IV DATA: Not applicable SIGNED BY: RT Ayah(R) May 15, 2022 2:06 PM [facility] 05-15-2022 History of Present illness Narrative Episode Visit Count: Visit count could not be calculated. Make sure you are using a visit which is associated with an episode. Start of Care Date: 05/15/22 Onset Date: 05/19/21 Patient Identified by Name and Date of : Yes [facility] MODIFIED BARIUM SWALLOW PLAN OF CARE: Impression: Evidence of: Oropharyngeal dysphagia;Concern for possible esophageal impairment An elevated risk for aspiration: No Swallow Efficiency: Preserved RESULTS: - Marked obstruction of flow in PE segment (level C5 - C6) with food pocketing noted (Please refer to Radiological evaluation results) - slow, prolonged mastication secondary to missing teeth - reduced esophageal emptying while in the upright posture which appears to be impacting the PE segment RECOMMENDATION: Diet Recommendations: Regular Consistency;Thin Liquids IDDSI Level 0 Swallowing Precautions Recommendations: Alternate bites and sips;Double swallows;Feed / Eat at a slow rate;Maintain an upright position 20-30 minutes following all oral intake;Medications whole in puree;Self-monitoring;Sit upright 90 degrees for all PO;Small Bite/Sip [employer] Recommendations: Diet;Swallowing Precautions - no further Speech Therapy is recommended Recommended Consults: GI Results and Recommendations Discussed With: Patient Goals for Modified Barium Swallow: created for 05/15/2022 only. The patient will be able to demonstrate adequate return of knowledge of today's fluoroscopic assessment and recommendations to maximize overall safety with oral intake. (baseline = no knowledge). GOAL MET SUBJECTIVE: Sandra Sanchez is a 51 year old female seen today for a Modified Barium Swallow (MBS) Study. - food gets stuck going down (Pt note region of lower throat/ clavicle) Patient Goals: eat/drink without difficulties - I turn my neck to get it down - Pt note reflux type symptoms - sometimes it bubbles back up - no recent PNA Prior Functional Level: Within Functional Limits OBJECTIVE: MEASURES WITH LEVEL OF FUNCTION: Instrumental Swallow Assessment Type: Modified Barium Swallow Study Modified Barium Swallow Views: Lateral position MBS Consistencies Tested: Thin Barium Liquids;Mildly Thick Barium Liquids ([place] Thick);Pureed with Barium Paste;Minced and Moist with Barium Paste;Soft and Bite-Sized with Barium Paste;Solid with Barium Paste Oral Phase: As Follows Lip Closure: No labial escape/anterior loss of bolus Tongue Control During Bolus Hold: Cohesive bolus between tongue to palatal seal Bolus Preparation/Mastication: Slow prolonged mastication with complete re-collection necessary Bolus Transport/Lingual Motion: Brisk tongue motion for A-P movement of the bolus Oral Residue: Trace residue lining oral structures Initiation Of Pharyngeal Swallow: Bolus head at posterior laryngeal surface of epiglottis Pharyngeal Phase: As Follows Soft Palate Elevation: No bolus between soft palate/pharyngeal wall Laryngeal Elevation: Complete superior movement of thyroid cartilage with contact of arytenoids to epiglottic petiole Anterior Hyoid Excursion: Complete anterior movement Epiglottic Movement: Complete inversion Laryngeal Vestibular Closure/Height of the Swallow: Complete - no air/contrast in laryngeal vestibule Pharyngeal Stripping Wave: Present, however, diminished Pharyngeal Contraction (A/P View Only): Not tested Pharyngoesophageal Segment Opening: Minimal distension/incomplete duration with marked obstruction of flow of bolus (Level C 5 - C 6) Tongue Base Retraction: Trace column of contrast or air between tongue base and pharyngeal wall;Narrow column of contrast or air between tongue base and pharyngeal wall Pharyngeal Residue: Trace residue within or on the pharyngeal structures Esophageal Clearance In An Upright Position: Esophageal retention;Esophageal retention with retrograde flow through the pharyngoesophageal segment Penetration-Aspiration Scale for MBSS: Completed Level 1-Material does not enter airway : Regular Consistency;Soft and Bite-Sized IDDSI Level 6;Minced and Moist IDDSI Level 5;Pureed IDDSI Level 4;Mildly Thick Liquids IDDSI Level 2 ([place] Thick);Thin Liquids IDDSI Level 0 Education: Education Learning Preferences: Demonstration;Explanation;Perform ance Barriers: None Learning/Educational Needs: Compensatory Strategies;Diet Modification(s);Rehabilitation Techniques and Procedures;Swallowing Skills;MBSs results Education Provided: Yes, see treatment interventions for education provided Education Provided To: Patient Education Mode/Type: Demonstration;Explanation/Discuss ion;Performance;Teach Back;Video Response to Education/Teach Back: States/Identifies;Return Demonstration TREATMENT: Performed Modified Barium Swallowing Study (85571). Evaluation: Modified Barium Swallow Evaluation (91204) Swallow / Dysphagia (51082): Skilled Intervention: Provided education related to a typical swallowing mechanism in a compare and contrast manner compared to this patient's current skill set. , Educated and advised patient / caregiver on texture and liquid consistency recommendations., Instructed patient / caregiver on recommended compensatory strategies to maximize safety with oral intake while maintaining nutrition, hydration and medication stability. - video review & education regarding findings from today's MBSS study & suggested plans for treatment were provided to the Patient through verbal instructions, images & demo Education regarding findings from today's Modified Barium Swallowing study (fluoroscopic study) and suggested plans for treatment were provided to the Pt through verbal / written instruction, images and/or demonstration. Pt was able to demonstrate understanding of education provided this date. Billing: Modified Barium Swallow (30313) and Dysphagia Treatment (27029) Total time: 30 minutes AZALIA Alfaro documented in this encounter [facility] 05-15-2022 History of Present illness Narrative Radiology Service Progress Note PATIENT NAME: Sandra Sanchez DATE OF SERVICE: May 15, 2022 TIME: 2:06 PM PATIENT IDENTITY VERIFICATION COMPLETED USING TWO (2) IDENTIFIERS: Name and Date of confirmed by patient verbally. FALL SCREENING: Has the patient had 2 falls in the last year or 1 fall with injury or currently using an Ambulatory Assistive Device (Walker, Cane, Wheelchair, Crutches, etc.)? No PATIENT GENDER DATA: Female. status: : No status: NO. PATIENT RELEVANT IMPLANT DATA REVIEWED: Not Applicable RADIOLOGY DEPARTMENT: General X-ray: Exam(s) Completed: GI/ Procedure(s): Modified barium swallow with barium contrast PERIPHERAL IV DATA: Not applicable SIGNED BY: RT Ayah(R) May 15, 2022 2:06 PM documented in this encounter [facility] 05-15-2022 Miscellaneous Notes Called Sandra, since we received a refill request for amitriptyline. Per Sandra, she is not taking it and currently her pain is doing alright. She said she didn't see the pain management doctor cause she figured they would just give more pills and she didn't want to take more pills. She has her barium swallow test later today but feels well overall. Told her to call if she needed anything. Cheryl Ponce RN documented in this encounter [facility] 04-05-2022 History of Present illness Narrative POPULATION HEALTH NAVIGATION OUTREACH Action/I [place] Support: Called pt to schedule an appt in Pain Management. Lvm for pt to call [phone] for scheduling. Pt identified by name and : NO Outreach Outcome/Action Unable to reach patient: Left message Did you use a PCP flex slot to schedule this appointment? No Reason for Outreach Care Gap or Scheduling/Wellness visits Payer: Payor: MEDICARE / Plan: MEDICARE A AND B / Product Type: Medicare / Care Gap Reviewed:: Specialty Scheduling Reminder: Reminder note to check Health Maintenance for items below Health Maintenance items due: HEPATITIS B(1 of 3 - 3-dose series) Never done COVID-19 VACCINE(1) Never done HEPATITIS C SCREENING Never done HIV SCREENING Never done DTAP,TDAP,TD(1 - Tdap) Never done HPV TESTING due on 04/11/2011 LIPID SCREEN Never done DIABETES SCREEN due on 10/02/2015 COLORECTAL CANCER SCREENING Never done MAMMOGRAM due on 05/09/2018 SHINGRIX VACCINE(1 of 2) Never done DEPRESSION ASSESSMENT Never done INFLUENZA(1) Never done PAP TESTING due on 05/09/2022 Message Sent to Practice: No Navigation Signature: Lupis Blas April 05, 2022 9:16 AM documented in this encounter [facility] 03-12-2022 Nurse Note Additional intake questions: Has the patient had fever, nausea, vomiting, diarrhea, constipation, fatigue for > 1 week? No Does patient have any new or increased numbness or tingling of extremities? No Is patient interested in fertility information? No Does patient need any prescription refills? No Does patient have an advanced directive in place? No, Patient refused referral to Social Work or Resource Center documented in this encounter [facility] 03-12-2022 History of Present illness Narrative Images from the original note were not included. [facility] Established Patient, Return Visit Referred by Dr. 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 Zapata is a pleasant 50 yo Woman with PMH of nerve sheath tumors who is referred to our clinic to establish care. History detailed below. She has been started on Selumetinib by Dr. 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 She experienced significant dermatologic AEs which led to her PCP reducing her dose by 50% to mitigate those AEs. She continues to report problems with skin rash. She takes Tylenol-Codeine for pain. She recently experienced LLE swelling, went to local ER and work up was negative for DVT or cellulitis. No improvement in pain while on Selumeitnib. She is independent in all ADLs and iADLs. She has a 27 yo daughter with no similar symptoms. No other family members with neurologic or genetic d/o. Parts of HPI have been retrieved from prior notes with appropriate modifications as below NF - Saw Dr. Lilly in the past, was told she has unspecified neurofibromatosis type - She had surgery at 2 locations; right arm, and right inframammilary region, both > 20 years ago, was told there were fibromas no records available. 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 - no problems with anxiety: panic attacks from childhood Cognitive or Speech - none Vision - eye floater started when she started Selumetinib - no evidence of optic glioma ENT - no hearing problem - no dizziness or vertigo - occasional tinnitus: both ears. 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 - no abnormal bleeding or discharge Endocrine - no problems - no high blood pressure - no palpations Skin - no neurofibromas - one cafe au lait spots - no freckling FH - no family member with NF (neither parents, aunts uncles. 27 year daughter is unaffected. Interval History 03/12/2022 Sandra is doing well, she is happy that her hair has been growing since she stopped the Koseulgo. She believe cymbalta has helped with her pain but sometimes she gets exacerbation after physical exertion. No falls, new growth, no worsening swallowing issues, no changes in urine or bowel control. No other complaints. Last Chemo: Selumetinib, was initiated by Dr. Stanton at fall 2020, dose reduced due to side effects and eventually stopped when she came to [facility] August 2021. 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 Panic attacks Past Surgical History: PAST SURGICAL HISTORY Procedure Laterality Date DELIVERY ONLY , low cervical EXC NEUROFIBROMA/NEUROLEMMOMA CUTAN NRV 1989, 1993, TONSILLECTOMY & ADENOIDECTOMY <AGE 12 Tonsil/adenoidectomy Family History: FAMILY HISTORY Problem Relation Age of Onset Arthritis Father other (MVP) Father Mitral valve prolapse with tachycardia Cancer Maternal Grandfather bladder Social History Tobacco Use Smoking status: Never Smokeless tobacco: Never Substance Use Topics Alcohol use: No Drug use: No Allergies: Venom-Wasp, Gabapentin, Koselugo [Selumetinib-Vitamin E Tpgs], Methadone, Tramadol, and Tree And Shrub Pollen Current Outpatient Medications Medication Sig DULoxetine (CYMBALTA) 60 mg capsule take 1 capsule by mouth at bedtime doxycycline monohydrate 100 mg tablet Take 100 mg by mouth twice daily. (Patient not taking: Reported on 08/22/2021 ) ketoconazole (NIZORAL) 2 % cream 30 g q 12 HR. (Patient not taking: Reported on 08/22/2021 ) LORazepam (ATIVAN) 0.5 mg take 1 TO 2 tablets by mouth every 8 hours if needed for ANXIETY ATTACKS (30 DAY SUPPLY) KOSELUGO 25 mg capsule 50 mg. triamcinolone acetonide (KENALOG) 0.5 % cream Apply to affected area twice daily. APPLY TO AFFECTED AREA Norgestimate-Ethinyl Estradiol 0.18/0.215/0.25 mg-35 mcg (28) take 1 tablet by mouth once daily (Patient not taking: Reported on 07/05/2021 ) benzonatate (TESSALON PERLE) 100 mg capsule Take 1-2 capsules tid prn (Patient not taking: Reported on 07/05/2021 ) guaiFENesin (MUCINEX) 600 mg 12 hr tablet Take 2 tablets by mouth twice daily. (Patient not taking: Reported on 07/05/2021 ) DULoxetine (CYMBALTA) 60 mg capsule Take 60 mg by mouth once daily. (Patient not taking: Reported on 07/05/2021 ) zolpidem (AMBIEN) 10 mg tab acetaminophen-codeine 300-60 mg per tablet Take 1 tablet by mouth every 4 hours as needed. lamoTRIgine 150 mg tablet Take 0.5 tablets by mouth once daily. DOXEPIN 100 MG CAP Take one(1) tablet daily at bedtime. (Patient taking differently: Take 150 mg by mouth daily at bedtime. ) No current facility-administered medications for this visit. Review of systems: Constitutional: No recent fever or weight loss. Eyes: No history of glaucoma or cataracts. ENMT: No recent ear infection, nasal congestion, mouth sores or sore throat. CV: No history of chest pain, palpitations or leg swelling. Respiratory: No history of SOB, asthma or recent cough. Gastrointestinal: No history of nausea, vomiting, dysphagia or abdominal pain. Genitourinary: No history of hematuria or dysuria. Musculoskeletal: No complaint of arthritis, unstable gait or arm/leg weakness. Psychiatric: No history of hallucinations or depression or anxiety. ROS Neurological: No complaint of headache. No complaint of tinnitus. No complaint of decreased hearing. No complaint of diplopia. No complaints of decreased visual acuity. No complaint of arm/leg numbness. No problem with limb coordination. No complaint of syncope, seizures or disorientation. Objective Physical Exam: BP 118/73 Pulse 78 Temp 37 C (98.6 F) (Oral) Resp 20 Wt 61.1 kg (134 lb 9.6 oz) LMP 07/17/2021 (Approximate) SpO2 98% BMI 22.67 kg/m General appearance: well appearing, in no acute distress, alert Head: NC/AT Eyes: clear, anicteric Oropharynx: clear, no lesions Neck: supple, no LAD Lungs: CTA bilaterally, no W/C Heart: RR without murmur noted Abdomen: soft, NT/ND Extremities: warm, no cyanosis or edema Skin: color, texture, and turgor unremarkable. No rashes or lesions. NEUROLOGICAL EXAM: General: Awake, alert, speech fluent, comprehension, naming, repetition intact. Short and intermediate memory intact. CN: PERRL, EOMI without nystagmus, VFF to confrontation, facial sensation and strength are normal and symmetric, hearing is intact to finger rub bilaterally, palate and tongue movements are intact and symmetric. Motor: Normal tone, bulk and strength bilaterally. Reflexes: 2/4 and symmetric, plantar stimulation is flexor. Coordination: FNF, MIAN, HTS intact. Sensation: diminished PP, LT, and Temp in RLE to knee level Gait: Able to walk on toes, heels, and tandem with mild difficulty but did not require assistance. Romberg normal. Karnofsky performance status: 80 - Normal activity with effort, some signs or symptoms of disease. ECOG performance status: 1 - Restricted in physically strenuous activity but ambulatory and able to carry out work of a light or sedentary nature, e.g., light house work or office work. PHQ 2 and 9 Total Scores 07/05/2021 PHQ-2 Score 0 PHQ-9 Score 2 Labs: CBC Latest Ref Rng & Units 11/22/2003 WBC 4.0 - 11.0 k/uL 5.13 RBC 4.2 - 5.4 M/uL 4.19(A) HEMOGLOBIN 12.0 - 16.0 g/dL 13.3 HEMATOCRIT 37 - 47 % 39.2 MCV 80 - 100 fL 93.6 MCH 27 - 34 pG 31.7 MCHC 32 - 36 % 33.9 RDW-CV 11.7 - 15.0 % 12.5 PLATELETS 150 - 400 K/uL 155 MPV 7.3 - 11.1 fL 11.8(A) CMP Latest Ref Rng & Units 09/25/2001 11/22/2003 SODIUM 132 - 148 mmol/L 140 139 POTASSIUM 3.5 - 5.0 mmol/L 4.9 4.0 CHLORIDE 98 - 110 mmol/L 100 100 CO2 24 - 32 mmol/L 35(A) 30 GLUCOSE 65 - 110 mg/dL 103 99 BUN 8 - 25 mg/dL 11 16 CREATININE 0.7 - 1.4 mg/dL 0.8 0.4(A) PROTEIN, TOTAL 6.0 - 8.4 g/dL 7.3 8.8(A) ALBUMIN 3.5 - 5.0 g/dL 4.3 4.4 CALCIUM, TOTAL 8.5 - 10.5 mg/dL 10.1 9.7 BILIRUBIN, TOTAL 0.0 - 1.5 mg/dL 0.5 0.3 AST 7 - 40 U/L 22 31 ALT 0 - 45 U/L 13 26 ALKALINE PHOSPHATASE 40 - 150 U/L 114 89 Final Pathology: N/A Imaging: MRI Report MRI BRAIN WWO CONTRAST Collected: 12/26/2009 5:57 PM (Final result) Reviewed prior MRIs, innumerable peripheral nerve sheath tumors in paraspinal, pelvic, and LE areas. No vestibular schwannomas or optic pathway gliomas. Assessment & Plan Ms. Sanchez is a pleasant 51 yo woman with heavy disease burden of peripheral nerve sheath tumors. Apart from the diffuse nerve sheath tumors, She only has one KENRICK, no parents or children with genetic disorders or similar symptoms. She does NOT meet the revised diagnostic criteria of NF1 or mosaic NF1 (Yanet Aguayo., Sandrita Carroll., Wolana maria, P. et al. Revised diagnostic criteria for neurofibromatosis type 1 and Legius syndrome: an international consensus recommendation. [employer] Med 23, 7201-4059 (2020). https://doi.org/10.1038/q86000-90 1-51649-6). Her most recent genetic testing is negative for germline NF1 mutations. And her prior genetic testing that was done in the past and showed VUS in SMARCB1 with no mutations in NF1 or NF2 though unclear to me if that was rechecked with her most recent test. No available path report to confirm if the removed lesions were schwannomas or neurofibromas. 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 She had no clinical benefit from MEKi, and no follow up MRIs were obtained to determine if there was any radiographic response given the departure of her treating MD from so we elected to stop it given side effects and she has no clinical progression since then. Unclear to me if her reported dysphagia is mechanical, neurologic, or globus sensation, no available formal swallow evaluation and no available neck soft tissue scans. No reported symptoms concerning for aspiration. Most recent C spine and neck soft tissue MRIs reviewed with the patient, no radiographic progression Plan: - Reach out to our genetics medicine team to request the SMARC-B and LZTR mutation status if that wasn't done in most recent test - MRI spine and pelvis w/wo contrast in 09/2022, sooner if she experiences clinical changes - If diagnosis remain unknown and in the event of disease progression will discussed with NSGY team about tissue acquisition or decompression of any of these lesions then we can run NGS from tumor tissue - Swallow evaluation - Referral to pain management. - Continue Cymbalta 60 mg QHS for neuropathic pain, add elavil 25 mg QHS to help with insomnia and pain, further management per pain management clinic RTC 09/2022 with scans above, if stable then monitor annually. I spent a total of 40 minutes on the date of the service which included preparing to see the patient, [id number] patient care, completing clinical documentation, obtaining and/or reviewing separately obtained history, performing a medically appropriate examination, counseling and educating the patient/family/caregiver and ordering medications, tests, or procedures. Dre Monte MD, [facility] Associate Staff [facility] Patient Care Team: Ramandeep Tom DO as PCP - General (Family Medicine) documented in this encounter [facility] 11-14-2021 Miscellaneous Notes I called and spoke with Ms. Sanchez in follow up to her Genetics visit on 11/01/2021. I spoke with the genetic counselor at the [facility] genomics lab, and the car barn laborer reviewed the variant that was identified in SMARCB1 in 2009. Based on current information, that variant would now be classified as likely benign. Therefore, this variant is unlikely to be related to Ms. Sanchez's tumors. I also learned that testing for the NF1 gene can be completed at [facility] at $0 [id number]. Ms. Sanchez would like to proceed with this, and I will arrange for a saliva kit to be sent to her home. If testing on saliva is normal, we may consider blood testing for a different cell type. documented in this encounter [facility] 11-01-2021 History of Present illness Narrative MEDICAL GENETICS CLINIC Patient: Sandra Sanchez Date of : 1970 [facility] #[id number] Consultation requested by: Dr. Stefan Tariq, [facility] Adult Neurology Initial visit: 06/06/2009 (Sandra Dudley at that time) Most recent visit: 06/06/2009 Today's date: 11/02/2021 PRESENTING PROBLEM: Neurofibromatosis, unspecified PRESENT AT VISIT: Patient and mother RECORDS REVIEWED: - [facility] EMR including pertinent clinic notes, lab results, imaging reports, cardiac studies, other evaluations, and scanned documents. Scanned documents include NF2 testing (scan date 09/08/2009), INI1/SMARCB1 testing (scan date 10/02/2009), and her family history obtained at the last visit. - Records from [facility] available in CareEverywhere under [employer]. Available records are not comprehensive but include some imaging reports, echos, and a few clinic visits, but no Neurology visits. - 10/16/21 PCP visit summary - available in CareEverywhere under [employer] NOTE: - Ms. Sanchez met with Edith Sanchez MS, [facility] (Certified Genetic Counselor) independent of the physician encounter. Please see that clinic summary for additional information. - Referring provider, PCP, and other pertinent providers will receive a copy of this clinic summary by [facility] or by standard mail. The patient will also receive a copy of this clinical summary. - Signed up for MyChart: Yes HISTORY OF PRESENT CONDITION: Sandra Sanchez is a 51 year-old with woman who was seen in Genetics in 2009 for a history of peripheral nerve sheath tumors. She was found to have painful tumors of the right arm, axilla, and chest at age 18. Some tumors were resected at [facility] in 1997 and found to be neurofibromas or myxoid neurofibromas (number of tumors uncertain but probably at least three). By her early 20's she had developed masses of her right leg and later she began to toe-walk due to a plantarflexion contracture of her right foot. Right leg imaging in 1996 showed multiple tumors consistent with nerve sheath tumors, including a tumor which measured > 24 cm in length along the right tibial nerve. At a 08/15/2006 visit in Adult Neurology, Dr. Thompson noted that Ms. 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 Exam at her 2009 Genetics visit showed a single [id number] (KENRICK) no skin-fold freckling, no lumps/bumps suggestive of dermal neurofibromas, and no unusual skeletal findings. An eye exam was reported to be normal. She did not fulfill the clinical diagnostic criteria for neurofibromatosis-1 (NF1), neurofibromatosis-2 (NF2), or schwannomatosis in place at 2009. At the time of her last Genetics visit neurofibromas were considered to be a finding of neurofibromatosis-2 (NF2); however, schwannomas are not a finding of NF1. Given that she had biopsy-proven neurofibromas, some imaging felt to show schwannomas, and a unimpressive skin exam, the decision was made to begin testing with NF2 analysis. Testing was normal. Analysis of SMARCB1 (also called INI1), the only gene known to be associated with schwannomatosis at that time, revealed a variant of unknown significance. Additional testing was offered - tumor testing for any NF-related gene and NF1 blood testing. It seemed unlikely that the latter would be positive (abnormal) given a skin exam which showed but one KENRICK. Before pursuing any additional testing she wished to discuss this topic with Dr. Lilly in Pediatric Neurology who she had last seen in 2008. Based on a phone encounter from it seems that Dr. Lilly suggested tumor testing the next time she had a tumor resected, but she has had no tumors resected since then. At her last Genetics visit I suggested that she be followed along the lines of NF1 with annual neurologic, eye, and general exams, breast imaging given the increased risk of breast cancer in NF1, and a bone density because a film I reviewed mentioned osteoporosis. We did not hear back from Ms. Sanchez until recently. She reports that she switched neurologic care from [facility] to [facility] Neuro-Oncology (Dr. Stanton) and recently back to [facility] after her provider left in May 2021. She reports she started Koselugo (selumetinib) in Fall 2020 under the care of Dr. Stanton primarily in hopes of shrinking tumors in the neck which were thought to be causing dysphagia. She reports she developed rash and erythema, abnormal liver function tests, and changes in vision while on Koselugo. She has also developed left leg swelling which she attributes to Koselugo; work-up did not show a clot or cellulitis and her PCP referred her to Lymphedema Clinic. She did not have imaging to see if Koselugo cause tumors to decrease in size, but her dysphagia did not improve. Pain from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 * Manjarrez: Normal * Breasts: No visible lumps/bumps. Palpation deferred. - Head/General face: Normocephalic with non-dysmorphic symmetric face. - Eyes: Straight fissures without ptosis or hooding. Left sclera injected. Normal-appearing irides. No Lisch nodules appreciated. Normal brows and lashes. - Ears: Normal shape, set and rotation without preauricular pits or tags. - Nose: Unremarkable. - Perioral/Mouth: Unremarkable perioral appearance. Normal tongue with intact palate. Dentition unremarkable for age. - Neck: Fullness of lower neck (tumors here per patient) - Cardiovascular: Normal perfusion with regular rate and rhythm; no murmur appreciated. - Respiratory: Breathing easily. Clear to auscultation throughout. - Gastrointestinal: Soft and nontender without palpable masses or organomegaly. - Genitourinary: Normal-appearing adult female pubic hair pattern. Remainder deferred. - Musculoskeletal, trunk: Chest normally-formed without pectus. Back looks symmetric when standing. Slight asymmetry on forward bend which improved/resolved when prompted to keep hips level (hard to do due to leg tumors). - Musculoskeletal, upper extremities: Normally-formed and symmetric with normal muscle mass and FROM throughout. No bowing. No join swelling, erythema. Normal palmar creases. - Musculoskeletal, lower extremities: Both feet purplish when dependent; color normalizes when feet raised. Left leg swollen (pits) to knee. Bilateral pes cavus. LE's otherwise normally-formed and symmetric with normal muscle mass and FROM throughout. No bowing. No join swelling, erythema. - Neurologic: Alert with good eye contact and normal attention span. Followed directions as expected. PERRL, EOMI without nystagmus, midline tongue, symmetrical facial movement. Vision and hearing grossly intact with normal voice. [place] tickle on hands and feet. UE tone normal; LE tone normal to sl increased. Normal muscle strength, and bulk with equal movement of extremities. No tremors. 3+ knees. No ataxia. Difficulty walking on toes and heels. - Psychiatric/Development: Normally-interactive with appropriate affect and behavior during visit. No obvious cognitive concerns. - Hematologic/Lymphatic/Immunologic : No bruising or petechiae. Lower neck swollen due to tumors. Left leg swollen as described above. No obvious signs of serious infection. UPDATED NF1 CLINICAL DIAGNOSTIC CRITERIA (Legius et al, 2020): A: The diagnostic criteria for NF1 are met in an individual who does not have a parent diagnosed with NF1 if two or more of the following are present: * Six or more caf -au-lait macules over 5 mm in greatest diameter in prepubertal individuals and over 15 mm in greatest diameter in postpubertal individuals No. Two CALs at most. * Freckling in the axillary or inguinal region* None seen on today's exam * Two or more neurofibromas of any type or one plexiform neurofibroma Yes. At least two biopsy-proven neurofibromas plus a myxoid neurofibromas per biopsies in 1997. * Optic pathway glioma None suspected on MRI. No known concerning eye exams. * Two or more iris Lisch nodules identified by slit lamp examination or two or more choroidal abnormalities (Nikolas) defined as bright, patchy nodules imaged by optical coherence tomography (OCT)/near-infrared reflectance (ERYN) imaging No * A distinctive osseous lesion such as sphenoid dysplasia anterolateral bowing of the tibia, or pseudarthrosis of a long bone None suspected on today's exam. * A heterozygous pathogenic NF1 variant with a variant allele fraction of 50% in apparently normal tissue such as white blood cells No testing to date. B: A child of a parent who meets the diagnostic criteria specified in A merits a diagnosis of NF1 if one or more of the criteria in A are present. Neither parent diagnosed with or suspected of having NF1. * If only caf -au-lait macules and freckling are present, the diagnosis is most likely NF1 but exceptionally the person might have another diagnosis such as Legius syndrome. At least one of the two pigmentary findings (caf -au-lait macules or freckling) should be bilateral. Sphenoid wing dysplasia is not a separate criterion in case of an ipsilateral orbital plexiform neurofibroma. Note: In addition to Legius Syndrome as mentioned in the updated diagnostic criteria, constitutional mismatch repair deficiency may also present with skin findings of NF1. DIAGNOSTIC CRITERIA FOR MOSAIC NEUROFIBROMATOSIS TYPE 1 (NF1) (Dede et al., 202) The diagnostic criteria for mosaic NF1 are met in an individual if any of the following is present: 1. A pathogenic heterozygous NF1 variant with a variant allele fraction of significantly less than 50% in apparently normal tissue such as white blood cells AND one other NF1 diagnostic criterion (except a parent fulfilling diagnostic criteria for NF1). No- no NF1 testing of any type to date but does fulfill one other NF1 diagnostic feature. 2. An identical pathogenic heterozygous NF1 variant in two anatomically independent affected tissues (in the absence of a pathogenic NF1 variant in unaffected tissue)* No tumor testing to date 3. A clearly segmental distribution of caf -au-lait macules or cutaneous neurofibromas AND (a) Another NF1 diagnostic criterion (except a parent fulfilling diagnostic criteria for NF1) or (b) a child fulfilling diagnostic criteria for NF1. No 4. Only one NF1 diagnostic criterion from the following list: freckling in the axillary and inguinal region, optic pathway glioma, two or more Lisch nodules or two or more choroidal abnormalities, distinctive osseous lesion typical for NF1, two or more neurofibromas or one plexiform neurofibroma AND a child fulfilling the criteria for NF1. No * Neurofibroma and overlying hyperpigmented skin count for one tissue only; different tissues originating from the same primary affected lesion count for one tissue only. If only caf -au-lait macules and freckling are present, the diagnosis is most likely mosaic neurofibromatosis type 1 but rarely might be mosaic Legius syndrome or constitutional mismatch repair deficiency (CMMRD) syndrome DIAGNOSTIC CRITERIA FOR NEUROFIBROMATOSIS TYPE 2 AND SCHWANNOMATOSIS (Papi et al, 202) Updated criteria were just published on-line recently for what are now called: 1) NF2-related schwannomatosis; 2) SMARCB1- and LZTR1-related schwannomatosis; 3) 22q-related schwannomatosis; 4) Schwannomatosis-Not Otherwise Specified; and, 5) Schwannomatosis-Not Elsewhere Classified. See the Papi et al. (ref below) for the updated criteria, which are very long and involved compared to the old criteria. Of note, neurofibromas have been removed from the criteria for NF2. Suffice it to say that at present Ms. Sanchez does not fulfill the criteria for any of these NF2/schwannomatosis disorders. Although she does have a change in SMARCB1, it is not known to be pathogenic; even if it was deemed pathogenic, another feature is required to fulfill criteria. . 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 Brain MRI was normal at in 2019. She does not have eye findings of neurofibromatosis-1 or 2 (NF1, NF2). Exam today is notable for one typical meap-nr-dekc and perhaps one other lightly pigmented fieu-vw-qypq. She did not have skin-fold freckling or dermal neurofibromas commonly found in adults with NF1 nor did she have other frequent physical findings such as short stature for predicted mid-parental height, relative macrocephaly, or typical skeletal findings. Although her tumor burden is significant, her only obvious tumor finding on exam is fullness of the lower neck, in addition to neurologic deficits due to tumors. A 6th degree maternal relative is said to have NF1, but relatives between that person and Ms. Sanchez are not known to have any neurocutaneous findings. Ms. Sanchez underwent NF2 analysis many years ago because she had an unimpressive skin exam for NF1, an abdominal CT was read as showing schwannomas, and biopsies showed neurofibromas. At that point in time neurofibromas counted towards the NF2 diagnostic criteria, but this is no longer the case. NF2 analysis was normal and given the supposed schwannomas, SMARCB1, the only gene known to cause schwannomatosis at the time, was analyzed and a variant of unknown significance was found. We offered NF1 gene analysis on blood in the past with the caveat that it could well be negative (normal) given Ms. Sanchez's unimpressive skin exam, since this raised the possibility of mosaic NF1. Since first meeting Ms. Sanchez I have had a few patients without typical NF1 skin exams who have had non-mosaic pathogenic variants in NF1 in their blood. Ms. Sanchez is interested in pursuing NF1 analysis in blood, depending on insurance coverage. If molecular testing for NF1 is negative, we could consider an array or karyotype on blood, since molecular testing could miss large NF1 gene deletions or certain chromosomal rearrangements, but tumor test (two different tumors) is more likely to provide a genetic diagnosis. Although she had one imaging study many years ago which was read as showing schwannomas, radiologists since then have all felt her tumors look more like neurofibromas and she has had no biopsy-proven schwannomas. I do not suggest repeating NF2 analysis although testing is now better at picking up mosaicism, nor do I suggest testing blood for changes in LZTR1 unless we have some proof she has a schwannoma, or at least she has had a normal NF1 blood analysis. We will, however, check to see if there is new information on her SMARCB1 variant. 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 We may or may not be able to show a genetic cause for her tumors. Given that she has had some biopsy-proven neurofibromas and seems to have plexiform neurofibromas, she may be at risk for the various complications of typical NF1. At the very least, she is presumably at risk to develop a malignant nerve sheath tumor. Briefly, findings of NF1 may include but are not limited to: - Growth: Short stature for family, large head size, early puberty/other endocrine issues related to pituitary disease, usually due to optic glioma - Development: Learning disabilities, occasional intellectual disability, neurodevelopmental concerns, daniella attention deficit hyperactivity disorder. - Skin: KENRICK macules (may be present at ), axillary/inguinal freckling (usually present by age 8), dermal neurofibromas (typically appear in late childhood/adolescence) - at least some of these skin findings are expected in patients in typical NF1. Less often juvenile xanthogranuloma, nevus anemicus. - Tumors/malignancies: Various benign and malignant tumors, particularly neural, breast, pheochromocytoma, gastrointestinal stromal tumors, glomus body tumors of digits, childhood leukemia. Plexiform neurofibromas may become malignant peripheral nerve sheath tumors. - Neurologic: Chronic headaches, tumors, seizures, neuropathy - Eyes: Optic glioma in childhood, Lisch nodules in late adolescence/adulthood. Choroidal abnormalities recently added to NF1 diagnostic criteria - may be present in childhood. - ENT: Hearing loss if tumors in ear canals, but not due to VS as in NF2. Suggestion of increase in dental concerns. - Cardiovascular: Hypertension the most common CVS finding (etiologies - idiopathic, vascular, pheo) and stroke a common cause of premature . Also congenital heart disease (~2%), peripheral vascular stenosis and aneurysms, pulmonary hypertension, intracardiac neurofibromas, hypertrophic cardiomyopathy. - Pulmonary: Diffuse lung disease (adults) - Gastrointestinal/Urinary: Symptoms due to tumors or vascular disease - Musculoskeletal: Pseudoarthrosis of long bone, sphenoid dysplasia, and bowed tibia characteristic but uncommon. Scoliosis, pectus anomalies and osteopenia/osteoporosis non-specific but much more common.. - Reproductive tract: Fertility usually normal unless impacted by tumor. Increase in neurofibroma size and number during , possibly increased chance of stillbirth and intrauterine growth retardation It seems reasonable for Ms. Sanchez to be followed according to NF1 adult guidelines as published in 2018 (ref below); From Table 1: In addition to recommended age-and gender-specific screening and vaccinations, an annual general medical evaluation of the adult with NF1 should consider questions about: Medical history - Signs and symptoms of 1) malignant peripheral nerve sheath tumor, 2) pheochromocytoma, 3) neuropathy, 4) depression, 5) chronic pain and pruritus, 6) fingertip pain. - Bothersome/symptomatic cutaneous neurofibromas - Family planning/contraception (and referral for genetic counseling if needed) Physical exam - Blood pressure - Clinical evaluation for scoliosis with Shadi s forward bend test with referral if needed Laboratory investigation - Consider in context of clinical presentation and age: serum vitamin D concentrations and supplementation Imaging - Mammogram (women): start annually at age 30 years* - MRI breast with contrast (women): consider between ages 30 and 50 years* - Consider baseline MRI of known or suspected nonsuperficial plexiform neurofibromas. - Consider in context of clinical presentation and age: dual energy X-ray absorptiometry *Based on expert recommendations made by the National Comprehensive Cancer Network. The evidence base for these guidelines in women with NF1 is minimal. These suggestions were developed by analogy, based on the current approach to breast cancer screening in other intermediate-risk breast cancer susceptibility syndromes. Caution is warranted in applying these guidelines to NF1 patients. In addition to Table 1: - The Guidelines discuss surveillance of other NF1 findings within the body of the article - see reference below. - Adult guidelines do not call for a yearly eye exam in adults as is done in children, but optic gliomas have been found beyond the typical age range and signs of increased intracranial pressure due to other tumors are sometimes first suspected based on eye exam. - I refer my adult female patients to the High Risk Breast Cancer Clinic here at [facility]. - Given the 2% chance of congenital heart disease I prefer that all individuals, even adults with no obvious symptoms, have a baseline formal cardiac exam with echo. Despite a known increased risk of vasculopathy and other cardiovascular concerns, current ACMG guidelines do not recommend ongoing cardiovascular surveillance, aside from an annual blood pressure check, in a typical adult patient with NF1. - Plexiform neurofibromas which change in appearance/texture/firmness, grow rapidly, or become a painful should be evaluated for possible malignancy. New or worsening symptoms such as weakness, numbness, pain, or bowel/bladder concerns may also indicate an enlarging, perhaps malignant, internal plexiform and such findings also should be investigated. The ACMG guidelines discuss imaging of plexiform neurofibromas. including the use PET, in effort to determine malignancy. I do not know if Ms. Sanchez has had such scans at . Ms. Sanchez should let providers know of concerning signs/symptoms. - Re. increased risk of osteopenia, even in young adults: In addition to the ACMG's recommendation to consider Vit D supplementation, weight-bearing exercise and avoidance of smoking are reasonable in an effort to decrease bone loss. A bone density study should be considered in the setting of possible fragility fractures. - As new health surveillance guidelines become available, above recommendations may change. Since we don't know the cause for Ms. Sanchez's peripheral nerve sheath tumors, we cannot know the risk to other family members. 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 With regards to her daughter, it is somewhat reassuring that she has no obvious sign of tumors at age 28. If Ms. Sanchez has a non-mosaic autosomal dominant gene predisposing to nerve sheath tumors (NF1 or something else), her daughter's risk to inherit the gene and to potentially develop tumors and perhaps other medical concerns is 50%. If Ms. Sanchez has a mosaic autosomal dominant gene predisposing to nerve sheath tumors, her daughter's risk to inherit the gene could up to 50% - risk would depend upon the genetic make-up of Ms. Sanchez's ovaries. If her daughter inherited an autosomal dominant tumor-predisposition gene, any of her biologic children would have a 50% chance to be affected. If Ms. Sanchez undergoes NF1 testing on blood and it is positive or if tumor testing at some point is diagnostic, we will be in a position to provide accurate risk assessment to her daughter. Ms. Sanchez reports that a great-great niece of her maternal grandfather has NF1. Assuming this diagnosis is correct and also assuming that this individual has typical NF1 findings, I would expect that at least some relatives connecting this relative and Ms. Sanchez would have findings of NF1. This is evidently not the case and I suspect this family history of NF1 in a 6th degree relative, though interesting, is not pertinent to Ms. Sanchez. I recommended that Ms. Sanchez return to Genetics in about 4-5 months. This should allow time to complete NF1 testing on blood, assuming insurance will cover or if OOP cost is not too high and for me to receive records from since not [facility] records were not comprehensive. We will also check on updates on her SMARCB1 variant. Ms. Sanchez indicated she understood the information discussed today and that her questions had been answered. RECOMMENDATIONS: This information was discussed at length with Ms. Sanchez. I recommend the following: - Genetic testing: * NF1 analysis on blood. She is interested if covered by insurance or if zva-um-ovmnpb cost is low. We will look into this and get back her. We would probably need to use [employer] to keep costs low. * If any surgery is planned on a tumor, Ms. Sanchez should notify my office well before the procedure. If NF1 analysis on blood is negative, tumor testing for NF1 is the next step. * We will check with [facility] re. the VUS in SMARCB1. * Unless we have histologic evidence of a schwannoma or at least some radiologists besides whoever read the abdominal CT in 2006 feel schwannoma is more likely than neurofibroma, I would not pursue LZTR1 testing on blood at this time. - Plexiform neurofibromas can become malignant. Ms. Sanchez and her providers should monitor her tumors for changes in appearance/texture/firmness, rapid growth, and new/increasing pain. Given that most of her tumors are internal, there is little she can monitor as far as appearance aside from her neck tumors. New or worsening symptoms such as weakness, numbness, pain, or bowel/bladder concerns may also indicate an enlarging, perhaps malignant, internal plexiform and such findings also should be investigated. The ACMG guidelines discuss imaging of plexiform neurofibromas. She is already involved with Neuro-Oncology. - Consultations placed to High risk breast cancer clinic - [facility] which [facility] Appointment line number provided. Ophthalmology - wishes to switch to [facility] provider. Appointment line number provided. - Records release signed for records. Although [facility], they are far from comprehensive. - At least annual Neurology and Neuro-Oncology evaluations. Ms. Sanchez has already established care with [facility] providers. - Given large tumor load, PET scan for malignant transformation of plexiforms may be considered - see discussion in Rick et al. Decision deferred to Neuro-Oncology. - Annual PCP visit with attention to BP, vertebral alignment, and other issues discussed in Guidelines. Suggest Vit D status be followed given increased risk of osteopenia in NF1. - Ms. Sanhcez had a fibular fracture in 2013 with no known history of fracture. An right foot X-ray in 2002 at [facility] was read as showing osteopenia, but osteopenia was not mentioned in any of multiple right foot films since. Suggest PCP consider DEXA. - Ms. Sanchez has edema of the left lower leg which is felt to be lymphedema. PCP note from September 2021 states she was referred to a Lymphedema Clinic. I urge Ms. Sanchez to follow-through with this recommendation. It's not clear to me that she has had imaging to date to prove this is lymphedema. - Genetic counseling by a genetic counselor as needed in the future to review this information or discuss test results. - FU in Genetics in 4-5 months. By then I hope to have the results of NF1 blood testing, the records, and updates on her SMARCB1 variant. - Second opinions are available. A listing of Genetics Clinics is available on the [employer] web site, www. acmg.net; select Directories; select [facility]. MEDICAL REFERENCES: - Richard Fortune. Neurofibromatosis 1 in GeneReviews. Last update 2021Sep 06. Currently available at https://pubmed.ncbi.nlm.nih.gov/2 9481153/ - Dede et al. Revised diagnostic criteria for neurofibromatosis type 1 and Legius syndrome: an international consensus recommendation. Kindra Med 2020;23(8):3557-7010. PMID: 09618628 Currently available at https://www.ncbi.nlm.nih.gov/pmc/ articles/EZS2870987/ - Lalo Turpin al. Updated diagnostic criteria and nomenclature for neurofibromatosis type 2 and schwannomatosis: An international consensus recommendation. Kindra Med. 2021 8;G9517-4325(83)57670-0. doi: 10.1016/j.gim.202.05.007. Online ahead of print. Currently available at https://www.sciencedirect.com/sci ence/article/pii/F318886586972255 0 - Rick Duenas al. Care of Adults with Neurofibromatosis type 1: A Clinical Practice Resource of the [place] [employer] (ACMG). Kindra Med. 2018 Nov;20(7):671-682. Currently available at: https://www.nature.com/articles/g pq018900.epdf?author_access_token =[email or web address] [id number] MATERIAL PROVIDED TO PATIENT: - Diagnostic guidelines for NF1, NF2, Schwannomatosis noted above - NF1 surveillance guidelines by Rick - Information from [facility] PATIENT RESOURCES: - [facility]: www.ctf.org I spent a total of 210+ minutes on the date of the service which included records review before or after visit, face-to face care including obtaining a history, performing an exam, and review of phenotype and possible testing (2 hours [id number]), reviewing separately-obtained family history, ordering consultations, and partial documentation of visit. Additional time was spent after the day of visit on records review and documentation. Fartun Patel M.D. [facility] The [address]/[place] [address] Office: [phone] Office fax: [phone] Clinic fax: [phone] Appointments: [phone] or toll free [phone] Genetic counselor working with patient and/or family: Edith Sanchez MS, [facility] (Certified Genetic Counselor) Office: [phone] CC by [facility]: Dr. Tariq, Adult Neurology Dr. Monte, Neuro-Oncology Otoniel Sanchez MS, [facility] Terri Sorto, [facility] CC by MyChart: Sandra Sanchez CC by US mail: Dr. Ramandeep Tom [address] [facility], [address] [place] [address] Enclosure: NF1 care guidelines referenced above documented in this encounter [facility] 11-01-2021 History of Present illness Narrative Patient Name and confirmed at initiation of visit. Dr. Stefan Tariq requested a genetic consultation for Sandra Sanchez, a 51 year old female, for discussion of her personal history of neurofibromas. Prior to the visit, the genetic counselor reviewed records in the patient's EMR including, but not limited to, available clinic notes, physician consultations, laboratory tests, imaging reports, cardiac studies, and other investigations and evaluations. The genetic counselor also reviewed the case with Dr. Patel as needed prior to seeing the patient. The patient was accompanied to today's appointment by her mother. HISTORY OF PRESENT CONDITION: Ms. 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 Pathology on some of the previous resections confirmed that they were neurofibromas, and other tumors were thought to be schwannomas on imaging. She had one cafe au lait spot, no skin-fold freckling, and no dermal neurofibromas. Based on the diagnostic criteria at the time, she underwent testing for NF2 and schwannomatosis, and was found to have a variant of unknown significance in the SMARCB1 gene. Testing for NF1 was also discussed but was not pursued at that time. Since our previous visit, Ms. Sanchez has been receiving care at , but has not undergone additional genetic testing. She has had extensive imaging and has nerve sheath tumors in her neck, spine, abdomen, pelvis, and limbs. Her brain MRI is said to be normal with no vestibular schwannomas identified. She was started on Koselugo but this was discontinued due to side effects. She experiences chronic pain, dysphagia, and neuropathy. Ms. Sanchez was seen in conjunction with Dr. Patel and additional history gathered by this genetic counselor is available in her note. PREVIOUS GENETIC TESTING: - NF2 on blood (2009, [facility]): Normal - SMARCB1 on blood (2009, [facility]): variant of unknown significance [id number]. SOCIAL HISTORY: Lives in [place] on her own, with 2 cats Employment: Not currently working due to health issues FAMILY HISTORY: - Patient's ethnicity: Peruvian/Dominican - No known -Comoran, Mediterranean, /Kosovan, Greenlandic-Welsh/Cajun, or Ashkenazi Pentecostalism ancestry unless noted above. - Parental consanguinity: No A four generation pedigree was collected at the previous visit, updated today, and will be scanned below. Pertinent findings are noted. Children: 28-year-old daughter in good health. One cafe au lait spot. Grandchildren: 2-year-old granddaughter. Full siblings and their children: 47 year old brother with two children. 53 year old sister without children. All medical histories unremarkable Half siblings: None Mother: 73 years old, 5'5 tall. Medical history unremarkable Maternal relatives: Grandmother at 74 from cancer. Grandfather has a pjnqy-ufylt-xbobq reported to have NF1. Father: 78 years old, 5'8 tall. Medical history notable for mitral valve prolapse and colon cancer. Paternal relatives: Grandmother in her 60's from complications of a bowel obstruction. Grandfather in his 60's from emphysema. The remainder of Ms. Sanchez's reported family history is negative for known or suspected genetic disease, defects, developmental delay/intellectual disability, infertility, recurrent loss, and unexplained .. GENETIC COUNSELING RISK ASSESSMENT AND DISCUSSION: Sandra Sanchez is a 51 year old female with a history of multiple nerve sheath tumors. Dr. Patel's physical examination and assessment, as well as medical decision making and management recommendations, will be documented in her note from today's visit. At the time of her previous visit, the combination of neurofibromas and schwannomas was thought to be more consistent with NF2 or schwannomatosis than with NF1, particularly in a patient without the typical cutaneous findings of NF1. Ms. Sanchez underwent testing for the NF2 and SMARCB1 genes on blood samples. She was found to have a variant of unknown significance in SMARCB1, and we will ask the lab to review this for any change in interpretation. Neurofibromas are no longer included in the diagnostic criteria for NF2-associated schwannomatosis, and it is now known that some people with NF1 do not have the typical findings of cafe au lait spots, skin-fold freckling, and dermal neurofibromas. Therefore, we would suggest testing for the NF1 gene, which Ms. Sanchez would like to pursue after determination of cost. We discussed the possibility that she has a mosaic form of one of these conditions, in which case a mutation may be present in some of her cells but may or may not be detected on a blood sample. We discussed that right now it is difficult to determine the chance that her daughter, granddaughter, and other family members would develop a similar condition. While NF1, NF2, and schwannomatosis are all inherited in an autosomal dominant pattern, the risk to family members may be less than 50% if she has one of these conditions in a mosaic form. In order to complete her assessment, we will request records of her imaging reports and other evaluations from . She is planning to transition all of her care back to [facility], so Dr. Patel will also refer her to Ophthalmology and the Breast Center. FOLLOW-UP PLAN: 1. Test for NF1 after determination of cost 2. I will ask [facility] to review previous variant in SMARCB1 3. Release signed to obtain records from (MRI, echo, EMG, ophthalmology, mammogram) 4. Referrals to Breast Center, Ophthalmology 5. Follow up in Genetics in approximately [address] Patel's note for any additional recommendations. The patient was seen for a total of 30 minutes, greater than 50% of which was spent [id number] counseling. This plan is being carried out per Dr. Patel's recommendations. Edith Sanchez MS, [facility] Licensed Genetic Counselor [facility] CC: Dr. Chandni Barrios, health data administrator CC: Sandra Sanchez Via Henrry Tom, DO [address] [id number] documented in this encounter [facility] 09-17-2021 History of Present illness Narrative Radiology Service Progress Note DATE OF SERVICE: September 17, 2021 TIME: 2:07 PM PATIENT IDENTITY VERIFICATION COMPLETED USING TWO (2) STANDARD IDENTIFIERS: Name and Date of confirmed by patient verbally. FALL SCREENING: Has the patient had 2 falls in the last year or 1 fall with injury or currently using an Ambulatory Assistive Device (Walker, Cane, Wheelchair, Crutches, etc.)? No PATIENT GENDER DATA: Female. status: : No status: NO. PATIENT RELEVANT IMPLANT DATA REVIEWED: Yes ALLERGIES: Reviewed and unchanged CONTRAST ALLERGY: NO. EXAM: MRI - CONTRAST TYPE: GROUP II PERIPHERAL IV DATA: Ambulatory: A peripheral IV was started in the Left antecubital site with a Angio cath: 22 gauge. RADIOLOGY DEPARTMENT: MR; Exam(s) Completed: Neck: Soft Tissue Neck Spine: Cervical spine SIGNATURE: RT Jeff(R) PATIENT NAME: Sandra Sanchez DATE: September 17, 2021 TIME: 2:07 PM documented in this encounter [facility] 08-22-2021 Nurse Note Additional intake questions: Has the patient had fever, nausea, vomiting, diarrhea, constipation, fatigue for > 1 week? Yes, constipation (day of last BM 08/22/2021) and diarrhea ( 1 times in last 24 hours) Does the patient have a decreased appetite? No Does patient want to see a Elevator Serviceman? No (yes to any of above refer patient to schedulers for dietitian appointment) ) Does patient have any new or increased numbness or tingling of extremities? Yes, hands, feet, legs Is patient interested in fertility information? No Does patient need any prescription refills? Yes, LIP notified Does patient have an advanced directive in place? No, Patient referred to Resource [facility] documented in this encounter [facility] 08-22-2021 History of Present illness Narrative Images from the original note were not included. [facility] New Patient Consultation Referred by Dr. 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 Zapata is a pleasant 50 yo Woman with PMH of nerve sheath tumors who is referred to our clinic to establish care. History detailed below. She has been started on Selumetinib by Dr. 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 She experienced significant dermatologic AEs which led to her PCP reducing her dose by 50% to mitigate those AEs. She continues to report problems with skin rash. She takes Tylenol-Codeine for pain. She recently experienced LLE swelling, went to local ER and work up was negative for DVT or cellulitis. No improvement in pain while on Selumeitnib. She is independent in all ADLs and iADLs. She has a 27 yo daughter with no similar symptoms. No other family members with neurologic or genetic d/o. Parts of HPI have been retrieved from prior notes with appropriate modifications as below NF - Saw Dr. Lilly in the past, was told she has unspecified neurofibromatosis type - She had surgery at 2 locations; right arm, and right inframammilary region, both > 20 years ago, was told there were fibromas no records available. 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 - no problems with anxiety: panic attacks from childhood Cognitive or Speech - none Vision - eye floater started when she started Selumetinib - no evidence of optic glioma ENT - no hearing problem - no dizziness or vertigo - occasional tinnitus: both ears. 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 - no abnormal bleeding or discharge Endocrine - no problems - no high blood pressure - no palpations Skin - no neurofibromas - one cafe au lait spots - no freckling FH - no family member with NF (neither parents, aunts uncles. 27 year daughter is unaffected. 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 Current Outpatient Medications Medication Sig doxycycline monohydrate 100 mg tablet Take 100 mg by mouth twice daily. ketoconazole (NIZORAL) 2 % cream 30 g q 12 HR. LORazepam (ATIVAN) 0.5 mg take 1 TO 2 tablets by mouth every 8 hours if needed for ANXIETY ATTACKS (30 DAY SUPPLY) KOSELUGO 25 mg capsule 50 mg. triamcinolone acetonide (KENALOG) 0.5 % cream Apply to affected area twice daily. APPLY TO AFFECTED AREA Norgestimate-Ethinyl Estradiol 0.18/0.215/0.25 mg-35 mcg (28) take 1 tablet by mouth once daily (Patient not taking: Reported on 07/05/2021 ) benzonatate (TESSALON PERLE) 100 mg capsule Take 1-2 capsules tid prn (Patient not taking: Reported on 07/05/2021 ) guaiFENesin (MUCINEX) 600 mg 12 hr tablet Take 2 tablets by mouth twice daily. (Patient not taking: Reported on 07/05/2021 ) DULoxetine (CYMBALTA) 60 mg capsule Take 60 mg by mouth once daily. (Patient not taking: Reported on 07/05/2021 ) zolpidem (AMBIEN) 10 mg tab acetaminophen-codeine 300-60 mg per tablet Take 1 tablet by mouth every 4 hours as needed. lamoTRIgine 150 mg tablet Take 0.5 tablets by mouth once daily. DOXEPIN 100 MG CAP Take one(1) tablet daily at bedtime. (Patient taking differently: Take 150 mg by mouth daily at bedtime. ) No current facility-administered medications for this visit. Review of systems: Constitutional: No recent fever or weight loss. Eyes: No history of glaucoma or cataracts. ENMT: No recent ear infection, nasal congestion, mouth sores or sore throat. CV: No history of chest pain, palpitations or leg swelling. Respiratory: No history of SOB, asthma or recent cough. Gastrointestinal: No history of nausea, vomiting, dysphagia or abdominal pain. Genitourinary: No history of hematuria or dysuria. Musculoskeletal: No complaint of arthritis, unstable gait or arm/leg weakness. Psychiatric: No history of hallucinations or depression or anxiety. ROS Neurological: No complaint of headache. No complaint of tinnitus. No complaint of decreased hearing. No complaint of diplopia. No complaints of decreased visual acuity. No complaint of arm/leg numbness. No problem with limb coordination. No complaint of syncope, seizures or disorientation. Objective Physical Exam: LMP 05/06/2017 BP 119/74 Pulse 91 Temp 36.6 C (97.9 F) (Oral) Resp 20 Ht 164.7 cm (5' 4.84) Wt 66.8 kg (147 lb 3.2 oz) LMP 07/17/2021 (Approximate) SpO2 100% BMI 24.61 kg/m General appearance: well appearing, in no acute distress, alert Head: NC/AT Eyes: clear, anicteric Oropharynx: clear, no lesions Neck: supple, no LAD Lungs: CTA bilaterally, no W/C Heart: RR without murmur noted Abdomen: soft, NT/ND Extremities: warm, no cyanosis or edema Skin: color, texture, and turgor unremarkable. No rashes or lesions. NEUROLOGICAL EXAM: General: Awake, alert, speech fluent, comprehension, naming, repetition intact. Short and intermediate memory intact. CN: PERRL, EOMI without nystagmus, VFF to confrontation, facial sensation and strength are normal and symmetric, hearing is intact to finger rub bilaterally, palate and tongue movements are intact and symmetric. Motor: Normal tone, bulk and strength bilaterally. Reflexes: 2/4 and symmetric, plantar stimulation is flexor. Coordination: FNF, MIAN, HTS intact. Sensation: diminished PP, LT, and Temp in RLE to knee level Gait: Able to walk on toes, heels, and tandem with mild difficulty but did not require assistance. Romberg normal. Karnofsky performance status: 80 - Normal activity with effort, some signs or symptoms of disease. ECOG performance status: 1 - Restricted in physically strenuous activity but ambulatory and able to carry out work of a light or sedentary nature, e.g., light house work or office work. PHQ 2 and 9 Total Scores 07/05/2021 PHQ-2 Score 0 PHQ-9 Score 2 Labs: CBC Latest Ref Rng & Units 11/22/2003 WBC 4.0 - 11.0 k/uL 5.13 RBC 4.2 - 5.4 M/uL 4.19(A) HEMOGLOBIN 12.0 - 16.0 g/dL 13.3 HEMATOCRIT 37 - 47 % 39.2 MCV 80 - 100 fL 93.6 MCH 27 - 34 pG 31.7 MCHC 32 - 36 % 33.9 RDW-CV 11.7 - 15.0 % 12.5 PLATELETS 150 - 400 K/uL 155 MPV 7.3 - 11.1 fL 11.8(A) CMP Latest Ref Rng & Units 09/25/2001 11/22/2003 SODIUM 132 - 148 mmol/L 140 139 POTASSIUM 3.5 - 5.0 mmol/L 4.9 4.0 CHLORIDE 98 - 110 mmol/L 100 100 CO2 24 - 32 mmol/L 35(A) 30 GLUCOSE 65 - 110 mg/dL 103 99 BUN 8 - 25 mg/dL 11 16 CREATININE 0.7 - 1.4 mg/dL 0.8 0.4(A) PROTEIN, TOTAL 6.0 - 8.4 g/dL 7.3 8.8(A) ALBUMIN 3.5 - 5.0 g/dL 4.3 4.4 CALCIUM, TOTAL 8.5 - 10.5 mg/dL 10.1 9.7 BILIRUBIN, TOTAL 0.0 - 1.5 mg/dL 0.5 0.3 AST 7 - 40 U/L 22 31 ALT 0 - 45 U/L 13 26 ALKALINE PHOSPHATASE 40 - 150 U/L 114 89 Final Pathology: N/A Imaging: MRI Report MRI BRAIN WWO CONTRAST Collected: 12/26/2009 5:57 PM (Final result) Complete Results Reviewed prior MRIs, innumerable peripheral nerve sheath tumors in paraspinal, pelvic, and LE areas. No vestibular schwannomas or optic pathway gliomas. Assessment & Plan Ms. Sanchez is a pleasant 50 yo woman with heavy disease burden of peripheral nerve sheath tumors. Apart from the diffuse nerve sheath tumors, She only has one KENRICK, no parents or children with genetic disorders or similar symptoms. She does NOT meet the revised diagnostic criteria of NF1 or mosaic NF1 (Yanet Aguayo., Sandrita Carroll., Noreen Ambriz et al. Revised diagnostic criteria for neurofibromatosis type 1 and Legius syndrome: an international consensus recommendation. [employer] Med 23, 1506 1510 (2020). https://doi.org/10.1038/y15127-47 [email or web address]). Her genetic testing was done in the past and showed VUS in SMARCB1 with no mutations in NF1 or NF2, she has no available tumor tissue for NGS given her last surgery was > 25 years ago. No available path report to confirm if the removed lesions were schwannomas or neurofibromas. 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 She had no clinical benefit from MEKi, and no follow up MRIs were obtained to determine if there was any radiographic response given the departure of her treating MD from . Unclear to me if her reported dysphagia is mechanical, neurologic, or globus sensation, no available formal swallow evaluation and no available neck soft tissue scans. No reported symptoms concerning for aspiration. Plan: - Stop Selumetinib - Obtain MRI C spine and neck soft tissue w/wo contrast - Obtain records from - Genetic testing with Dr. Patel - Restart Cymbalta 60 mg QHS for neuropathic pain - May need NCS/EMG, suspect sciatic notch nerve compression - Establish care with local pain management provider for further evaluation and management. She used to see Dr. Rock in the past. - Consider swallow study We will follow up after the genetic testing and the MRIs listed above then advise on future plans. Patient Instructions: Counseled: Patient, Regarding diagnosis, Regarding medications, Diet, Activity. Patient Education: Education topics: Disease management , Nutrition and exercise education. Individuals taught: Patient. Barriers to learning: None evident. Teaching method: Explanation. Teaching evaluation: Verbalizes understanding. I spent a total of 85 minutes on the date of the service which included preparing to see the patient, [id number] patient care, completing clinical documentation, obtaining and/or reviewing separately obtained history, performing a medically appropriate examination, counseling and educating the patient/family/caregiver and ordering medications, tests, or procedures. Dre Monte MD 10:03 AM 08/22/2021 [facility] Cc: Garcia Diaz MD PCP Stefan Tariq MD [facility] Fartun Patel MD [facility] Robbie Thompson DO, PhD [facility] documented in this encounter [facility] Evaluation note Diagnosis Benign neoplasm of peripheral nerve sheath- Primary Chronic pain due to neoplasm Neuropathic pain Neuralgia, neuritis, and radiculitis, unspecified [facility] Benign neoplasm of peripheral nerve sheath [facility] Diagnosis Benign neoplasm of peripheral nerve sheath- Primary [facility] Diagnosis Benign neoplasm of peripheral nerve sheath- Primary [facility] Diagnosis Benign neoplasm of peripheral nerve sheath- Primary [facility] 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, soft tissue, and skin Abnormal findings on diagnostic imaging of other specified body structures [facility] 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, soft tissue, and skin Benign neoplasm of peripheral nerve sheath [facility] 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, soft tissue, and skin Benign neoplasm of peripheral nerve sheath [facility] Diagnosis 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, soft tissue, and skin Benign neoplasm of peripheral nerve sheath [facility] Diagnosis Zenker diverticulum- Primary Diverticulum of esophagus, acquired [facility] Diagnosis Neurofibromatosis, unspecified (HCC)- Primary Neurofibroma Other benign neoplasm of connective and other soft tissue of unspecified site Other heart disorders in diseases classified elsewhere [facility] Diagnosis Other heart disorders in diseases classified elsewhere- Primary Neurofibromatosis, unspecified (HCC) [facility] Diagnosis Shortness of breath- Primary Neurofibromatosis, unspecified (HCC) Zenker's diverticulum Diverticulum of esophagus, acquired [facility] Diagnosis Zenker diverticulum Diverticulum of esophagus, acquired [facility] 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, soft tissue, and skin Benign neoplasm of peripheral nerve sheath Chronic pain due to neoplasm [facility] Diagnosis Onset Date Resolution Status UTI (urinary tract infection) [facility] Work Phone: Evaluation note* Diagnosis Insomnia, unspecified type- Primary Medication management Recurrent urinary tract infection Urinary tract infection, site not specified Yeast infection Healthcare maintenance Neurofibromatosis (CMS/HCC) Neurofibromatosis, unspecified documented in this encounter [facility] Work Phone: Evaluation note* Diagnosis 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, soft tissue, and skin Benign neoplasm of peripheral nerve sheath Chronic pain due to neoplasm Neuropathic pain Neuralgia, neuritis, and radiculitis, unspecified documented in this encounter [facility] note* Diagnosis Medicare annual wellness visit, subsequent- Primary Encounter for screening for other disorder Body mass index (BMI) of 23.0 to 23.9 in adult Other screening mammogram Insomnia, unspecified type Screening for colon cancer Special screening for malignant neoplasms, colon Neurofibromatosis (CMS/HCC) Neurofibromatosis, unspecified Osteopenia of multiple sites Postmenopausal estrogen deficiency Elevated LDL cholesterol level documented in this encounter [facility] Work Phone: Evaluation note* Diagnosis Neurofibromatosis (HCC) Neurofibromatosis, unspecified [facility] Diagnosis Neurofibromatosis (HCC) Neurofibromatosis, unspecified [facility] 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, soft tissue, 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 [facility] 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, soft tissue, and skin [facility] Diagnosis Urinary incontinence, unspecified type- Primary 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, soft tissue, and skin Benign neoplasm of peripheral nerve sheath [facility]* Diagnosis Spasticity- Primary Abnormal involuntary movements Chronic pain syndrome Neurofibromatosis 2 (HCC) Neurofibromatosis, Type 2 (acoustic neurofibromatosis) [facility]* Diagnosis 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 Benign neoplasm of spinal cord Right foot drop Other acquired deformity of ankle and foot Myofascial pain Mylagia and myositis, unspecified Neurofibromatosis (HCC) Neurofibromatosis, unspecified 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 on rotation to right Cramp and spasm Cervical dystonia Spasmodic torticollis [facility] Diagnosis Irritation of eye- Primary Abrasion of left cornea, initial encounter [facility]* Diagnosis Medicare annual wellness visit, subsequent- Primary Screening for colon cancer Special screening for malignant neoplasms, colon Medication management Insomnia, unspecified type Breast cancer screening by mammogram Neurofibromatosis (Multi) Neurofibromatosis, unspecified Osteopenia of multiple sites Encounter for special screening examination Insomnia, unspecified type- Primary Medication management Recurrent urinary tract infection Urinary tract infection, site not specified Yeast infection Healthcare maintenance Neurofibromatosis (Multi) Neurofibromatosis, unspecified Medicare annual wellness visit, subsequent- Primary Encounter for screening for other disorder Body mass index (BMI) of 23.0 to 23.9 in adult Other screening mammogram Insomnia, unspecified type Screening for colon cancer Special screening for malignant neoplasms, colon Neurofibromatosis (Multi) Neurofibromatosis, unspecified Osteopenia of multiple sites Postmenopausal estrogen deficiency Elevated LDL cholesterol level Insomnia, unspecified type- Primary Neurofibromatosis (Multi) Neurofibromatosis, unspecified Osteopenia of multiple sites Neck stiffness Torticollis, unspecified Cervicogenic headache Headache Other complicated headache syndrome Screening for cardiovascular condition Screening for other and unspecified cardiovascular conditions Recurrent cold sores Herpes simplex without mention of complication Elevated LDL cholesterol level Other screening mammogram documented in this encounter [facility] Work Phone: Evaluation note* Diagnosis Medicare annual wellness visit, subsequent- Primary Screening for colon cancer Special screening for malignant neoplasms, colon Medication management Insomnia, unspecified type Breast cancer screening by mammogram Neurofibromatosis (Multi) Neurofibromatosis, unspecified Osteopenia of multiple sites Encounter for special screening examination Insomnia, unspecified type- Primary Medication management Recurrent urinary tract infection Urinary tract infection, site not specified Yeast infection Healthcare maintenance Neurofibromatosis (Multi) Neurofibromatosis, unspecified Medicare annual wellness visit, subsequent- Primary Encounter for screening for other disorder Body mass index (BMI) of 23.0 to 23.9 in adult Other screening mammogram Insomnia, unspecified type Screening for colon cancer Special screening for malignant neoplasms, colon Neurofibromatosis (Multi) Neurofibromatosis, unspecified Osteopenia of multiple sites Postmenopausal estrogen deficiency Elevated LDL cholesterol level Insomnia, unspecified type- Primary Neurofibromatosis (Multi) Neurofibromatosis, unspecified Osteopenia of multiple sites Neck stiffness Torticollis, unspecified Cervicogenic headache Headache Other complicated headache syndrome Screening for cardiovascular condition Screening for other and unspecified cardiovascular conditions Recurrent cold sores Herpes simplex without mention of complication Elevated LDL cholesterol level Postmenopausal estrogen deficiency documented in this encounter [facility] Work Phone: Evaluation note* Diagnosis Medicare annual wellness visit, subsequent- Primary Screening for colon cancer Special screening for malignant neoplasms, colon Medication management Insomnia, unspecified type Breast cancer screening by mammogram Neurofibromatosis (Multi) Neurofibromatosis, unspecified Osteopenia of multiple sites Encounter for special screening examination Insomnia, unspecified type- Primary Medication management Recurrent urinary tract infection Urinary tract infection, site not specified Yeast infection Healthcare maintenance Neurofibromatosis (Multi) Neurofibromatosis, unspecified Medicare annual wellness visit, subsequent- Primary Encounter for screening for other disorder Body mass index (BMI) of 23.0 to 23.9 in adult Other screening mammogram Insomnia, unspecified type Screening for colon cancer Special screening for malignant neoplasms, colon Neurofibromatosis (Multi) Neurofibromatosis, unspecified Osteopenia of multiple sites Postmenopausal estrogen deficiency Elevated LDL cholesterol level Insomnia, unspecified type- Primary Neurofibromatosis (Multi) Neurofibromatosis, unspecified Osteopenia of multiple sites Neck stiffness Torticollis, unspecified Cervicogenic headache Headache Other complicated headache syndrome Screening for cardiovascular condition Screening for other and unspecified cardiovascular conditions Recurrent cold sores Herpes simplex without mention of complication Elevated LDL cholesterol level Screening for cardiovascular condition Screening for other and unspecified cardiovascular conditions documented in this encounter [facility] Work Phone: Evaluation note* Diagnosis Medicare annual wellness visit, subsequent- Primary Screening for colon cancer Special screening for malignant neoplasms, colon Medication management Insomnia, unspecified type Breast cancer screening by mammogram Neurofibromatosis (CMS/HCC) Neurofibromatosis, unspecified Osteopenia of multiple sites Encounter for special screening examination documented in this encounter [facility] Work Phone: Evaluation note* Diagnosis Medicare annual wellness visit, subsequent- Primary Screening for colon cancer Special screening for malignant neoplasms, colon Medication management Insomnia, unspecified type Breast cancer screening by mammogram Neurofibromatosis (Multi) Neurofibromatosis, unspecified Osteopenia of multiple sites Encounter for special screening examination Insomnia, unspecified type- Primary Medication management Recurrent urinary tract infection Urinary tract infection, site not specified Yeast infection Healthcare maintenance Neurofibromatosis (Multi) Neurofibromatosis, unspecified Medicare annual wellness visit, subsequent- Primary Encounter for screening for other disorder Body mass index (BMI) of 23.0 to 23.9 in adult Other screening mammogram Insomnia, unspecified type Screening for colon cancer Special screening for malignant neoplasms, colon Neurofibromatosis (Multi) Neurofibromatosis, unspecified Osteopenia of multiple sites Postmenopausal estrogen deficiency Elevated LDL cholesterol level Insomnia, unspecified type- Primary Neurofibromatosis (Multi) Neurofibromatosis, unspecified Osteopenia of multiple sites Neck stiffness Torticollis, unspecified Cervicogenic headache Headache Other complicated headache syndrome Screening for cardiovascular condition Screening for other and unspecified cardiovascular conditions Recurrent cold sores Herpes simplex without mention of complication Elevated LDL cholesterol level documented in this encounter [facility] Work Phone: Evaluation note* Diagnosis Medicare annual wellness visit, subsequent- Primary Screening for colon cancer Special screening for malignant neoplasms, colon Medication management Insomnia, unspecified type Breast cancer screening by mammogram Neurofibromatosis (Multi) Neurofibromatosis, unspecified Osteopenia of multiple sites Encounter for special screening examination Insomnia, unspecified type- Primary Medication management Recurrent urinary tract infection Urinary tract infection, site not specified Yeast infection Healthcare maintenance Neurofibromatosis (Multi) Neurofibromatosis, unspecified Medicare annual wellness visit, subsequent- Primary Encounter for screening for other disorder Body mass index (BMI) of 23.0 to 23.9 in adult Other screening mammogram Insomnia, unspecified type Screening for colon cancer Special screening for malignant neoplasms, colon Neurofibromatosis (Multi) Neurofibromatosis, unspecified Osteopenia of multiple sites Postmenopausal estrogen deficiency Elevated LDL cholesterol level Insomnia, unspecified type- Primary Neurofibromatosis (Multi) Neurofibromatosis, unspecified Osteopenia of multiple sites Neck stiffness Torticollis, unspecified Cervicogenic headache Headache Other complicated headache syndrome Screening for cardiovascular condition Screening for other and unspecified cardiovascular conditions Recurrent cold sores Herpes simplex without mention of complication Elevated LDL cholesterol level RUQ abdominal pain- Primary Abdominal pain, right upper quadrant Insomnia, unspecified type Constipation, unspecified constipation type Lymphedema Other noninfectious lymphedema Neurofibromatosis (Multi) Neurofibromatosis, unspecified documented in this encounter [facility] Work Phone: Evaluation note* Diagnosis Medicare annual wellness visit, subsequent- Primary Screening for colon cancer Special screening for malignant neoplasms, colon Medication management Insomnia, unspecified type Breast cancer screening by mammogram Neurofibromatosis (Multi) Neurofibromatosis, unspecified Osteopenia of multiple sites Encounter for special screening examination Insomnia, unspecified type- Primary Medication management Recurrent urinary tract infection Urinary tract infection, site not specified Yeast infection Healthcare maintenance Neurofibromatosis (Multi) Neurofibromatosis, unspecified Medicare annual wellness visit, subsequent- Primary Encounter for screening for other disorder Body mass index (BMI) of 23.0 to 23.9 in adult Other screening mammogram Insomnia, unspecified type Screening for colon cancer Special screening for malignant neoplasms, colon Neurofibromatosis (Multi) Neurofibromatosis, unspecified Osteopenia of multiple sites Postmenopausal estrogen deficiency Elevated LDL cholesterol level Insomnia, unspecified type- Primary Neurofibromatosis (Multi) Neurofibromatosis, unspecified Osteopenia of multiple sites Neck stiffness Torticollis, unspecified Cervicogenic headache Headache Other complicated headache syndrome Screening for cardiovascular condition Screening for other and unspecified cardiovascular conditions Recurrent cold sores Herpes simplex without mention of complication Elevated LDL cholesterol level RUQ abdominal pain Abdominal pain, right upper quadrant documented in this encounter [facility] Work Phone: Evaluation note* Diagnosis 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, soft tissue, and skin Benign neoplasm of peripheral nerve sheath [facility] Diagnosis 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, soft tissue, and skin Benign neoplasm of peripheral nerve sheath [facility]* 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, soft tissue, and skin Chronic pain due to neoplasm [facility]* Diagnosis Medicare annual wellness visit, subsequent- Primary Screening for colon cancer Special screening for malignant neoplasms, colon Medication management Insomnia, unspecified type Breast cancer screening by mammogram Neurofibromatosis (Multi) Neurofibromatosis, unspecified Osteopenia of multiple sites Encounter for special screening examination Insomnia, unspecified type- Primary Medication management Recurrent urinary tract infection Urinary tract infection, site not specified Yeast infection Healthcare maintenance Neurofibromatosis (Multi) Neurofibromatosis, unspecified Medicare annual wellness visit, subsequent- Primary Encounter for screening for other disorder Body mass index (BMI) of 23.0 to 23.9 in adult Other screening mammogram Insomnia, unspecified type Screening for colon cancer Special screening for malignant neoplasms, colon Neurofibromatosis (Multi) Neurofibromatosis, unspecified Osteopenia of multiple sites Postmenopausal estrogen deficiency Elevated LDL cholesterol level Insomnia, unspecified type- Primary Neurofibromatosis (Multi) Neurofibromatosis, unspecified Osteopenia of multiple sites Neck stiffness Torticollis, unspecified Cervicogenic headache Headache Other complicated headache syndrome Screening for cardiovascular condition Screening for other and unspecified cardiovascular conditions Recurrent cold sores Herpes simplex without mention of complication Elevated LDL cholesterol level Medication management- Primary RUQ abdominal pain Abdominal pain, right upper quadrant documented in this encounter [facility] Work Phone: History of Present illness Narrative* The patient is being seen for the subsequent annual wellness visit. * Past Medical, Surgical and Family History: reviewed and updated in chart. * Medications and Supplements: Medications and supplements, including calcium and vitamins reviewed and updated in chart. * No, the patient is not using opioids. * Patient Self Assessment of Health Status: fair. * Tobacco use: Non-User * Alcohol use: Non-User * Illicit drug use: Non-User * Current diet: well balanced diet, does consume adequate fluids and does consume caffeine. * Exercise Frequency: infrequently. * Depression/Suicide Screening: . * During the past 2 weeks, the patient has not felt down, depressed or hopeless. * During the past 2 weeks, the patient has not felt little interest or pleasure in doing things. * See phq9 * Hearing Impairment: none. * Cognitive Impairment: No cognitive impairment observed. * Bathing: performs independently. * Dressing: performs independently. * Walking: performs independently. * Managing Finances: performs independently. * Shopping: performs independently. * Housework / Basic Home Maintenance: performs independently. * Falls Risk Screening:. SANDRA has not fallen in the last 6 months. * Home safety risk factors: none. * Health maintenance: * TDAP-- none found * Influenza-- Due Fall 2020 * Shingrix-- none found (history of [place] outbreak) * Pneumonia series-- N/A * Mammo-- 11/2019 * PAP-- none found * Cscope(45-75)-- none found (ORDERED 05/2020) (father with hx of colon cancer) * Last Dexa (65+)-- N/A * Anxiety/Depression-- 09/2019 * PHQ-9: 1 * REYMUNDO-7: 0 * Hepatitis C Screen-- none found * Lipid Panel-- ratio: none found * CT cardiac score-- none found * *Due for: TDAP, SHINGRIX, MAMMO, PAP, C SCOPE, HEP C SCREEN, LABS * Patient presents today for health management of NF-1 + MWV. * ABN obtained & brochure given. * She comes in today with complaint of abnormal menses. States she went off BCP and has not had period for almost a year until recently. No periods are irregular and heavy. She is unsure when they are coming. * Patient with history of neurofibromatosis and chronic pain. She is presently on Doxepin 100 mg + Lamictal 150 mg daily. * Follows with heme-onc and derm yearly. States she has plans to start Koselugo which is a new medication for NF, waiting for approval from insurance. Also using medical marijuana but requiring small dose Ambien for sleep now. * 01/03/2020 HEME-ONC F/U: NF-1, recommended derm assessment yearly, BP monitoring, annual mammographyand consideration of breast MRI until age 50. Multiple plexiform neurofibromas, recommended yearly follow-up with neuro- oncology, consider yearly MR imaging of known plexiform tumors. Reimage if there is new pain in the region of known neurofibroma, consider also nerve ultrasound and PET to detect for malignant transformation. * 12/21/2020 MRI Pelvis + Femur: Neurofibromatosis with innumerable neurofibromas throughout the lumbosacral plexus and along the course of the sciatic nerves. No evidence of malignant transformation by MRI. Continued surveillance is recommended. * 10/2020 EMG: Moderately abnormal but indeterminate study. Absent sensory potentials in LE are consistent with a peripheral neuropathy. However, there is a clear asymmetry of distal motor amplitudes, significantly lower on the right side than left consistent with a superimposed process that might include a disorder of the right sciatic nerve, lumbosacral plexus, or L5/S1 nerve roots but which cannot be determined for certain because of the underlying peripheral neuropathy. * 09/2020 ECHO: LV systolic function is normal with EF 60%. Mean global longitudinal strain is -15.5% No prior studies for comparison. * No prior colonoscopy in our records (father with hx of colon cancer). States she needs scope, but waiting to figure above issues first. No melena, hematochezia, constipation, diarrhea, bloating, change in bowel habits. * No prior pap smears in our records * 11/2019 mammogram normal, due for repeat. [facility] Work Phone: History of Present illness Narrative* The patient is being seen for the subsequent annual wellness visit. * Past Medical, Surgical and Family History: reviewed and updated in chart. * Medications and Supplements: Medications and supplements, including calcium and vitamins reviewed and updated in chart. * No, the patient is not using opioids. * Patient Self Assessment of Health Status: fair. * Tobacco use: Non-User * Alcohol use: Non-User * Illicit drug use: Non-User * Current diet: well balanced diet, does consume adequate fluids and does consume caffeine. * Exercise Frequency: infrequently. * Depression/Suicide Screening: . * During the past 2 weeks, the patient has not felt down, depressed or hopeless. * During the past 2 weeks, the patient has not felt little interest or pleasure in doing things. * See phq9 * Hearing Impairment: none. * Cognitive Impairment: No cognitive impairment observed. * Bathing: performs independently. * Dressing: performs independently. * Walking: performs independently. * Managing Finances: performs independently. * Shopping: performs independently. * Housework / Basic Home Maintenance: performs independently. * Falls Risk Screening:. SANDRA has not fallen in the last 6 months. * Home safety risk factors: none. * Health maintenance: * TDAP-- none found * Influenza-- Due Fall 2020 * Shingrix-- none found (history of [place] outbreak) * Pneumonia series-- N/A * Mammo-- 11/2019 * PAP-- none found * Cscope(45-75)-- none found (ORDERED 05/2020) (father with hx of colon cancer) * Last Dexa (65+)-- N/A * Anxiety/Depression-- 09/2019 * PHQ-9: 1 * REYMUNDO-7: 0 * Hepatitis C Screen-- none found * Lipid Panel-- ratio: none found * CT cardiac score-- none found * *Due for: TDAP, SHINGRIX, MAMMO, PAP, C SCOPE, HEP C SCREEN, LABS * Patient presents today for health management of NF-1 + MWV. * ABN obtained & brochure given. * She comes in today with complaint of abnormal menses. States she went off BCP and has not had period for almost a year until recently. No periods are irregular and heavy. She is unsure when they are coming. * Patient with history of neurofibromatosis and chronic pain. She is presently on Doxepin 100 mg + Lamictal 150 mg daily. * Follows with heme-onc and derm yearly. States she has plans to start Koselugo which is a new medication for NF, waiting for approval from insurance. Also using medical marijuana but requiring small dose Ambien for sleep now. * 01/03/2020 HEME-ONC F/U: NF-1, recommended derm assessment yearly, BP monitoring, annual mammographyand consideration of breast MRI until age 50. Multiple plexiform neurofibromas, recommended yearly follow-up with neuro- oncology, consider yearly MR imaging of known plexiform tumors. Reimage if there is new pain in the region of known neurofibroma, consider also nerve ultrasound and PET to detect for malignant transformation. * 12/21/2020 MRI Pelvis + Femur: Neurofibromatosis with innumerable neurofibromas throughout the lumbosacral plexus and along the course of the sciatic nerves. No evidence of malignant transformation by MRI. Continued surveillance is recommended. * 10/2020 EMG: Moderately abnormal but indeterminate study. Absent sensory potentials in LE are consistent with a peripheral neuropathy. However, there is a clear asymmetry of distal motor amplitudes, significantly lower on the right side than left consistent with a superimposed process that might include a disorder of the right sciatic nerve, lumbosacral plexus, or L5/S1 nerve roots but which cannot be determined for certain because of the underlying peripheral neuropathy. * 09/2020 ECHO: LV systolic function is normal with EF 60%. Mean global longitudinal strain is -15.5% No prior studies for comparison. * No prior colonoscopy in our records (father with hx of colon cancer). States she needs scope, but waiting to figure above issues first. No melena, hematochezia, constipation, diarrhea, bloating, change in bowel habits. * No prior pap smears in our records * 11/2019 mammogram normal, due for repeat. [facility] Work Phone: History of Present illness Narrative* The patient is being seen for the subsequent annual wellness visit. * Past Medical, Surgical and Family History: reviewed and updated in chart. * Medications and Supplements: Medications and supplements, including calcium and vitamins reviewed and updated in chart. * No, the patient is not using opioids. * Patient Self Assessment of Health Status: fair. * Tobacco use: Non-User * Alcohol use: Non-User * Illicit drug use: Non-User * Current diet: well balanced diet, does consume adequate fluids and does consume caffeine. * Exercise Frequency: infrequently. * Depression/Suicide Screening: . * During the past 2 weeks, the patient has not felt down, depressed or hopeless. * During the past 2 weeks, the patient has not felt little interest or pleasure in doing things. * See phq9 * Hearing Impairment: none. * Cognitive Impairment: No cognitive impairment observed. * Bathing: performs independently. * Dressing: performs independently. * Walking: performs independently. * Managing Finances: performs independently. * Shopping: performs independently. * Housework / Basic Home Maintenance: performs independently. * Falls Risk Screening:. SANDRA has not fallen in the last 6 months. * Home safety risk factors: none. * Health maintenance: * TDAP-- none found * Influenza-- Due Fall 2020 * Shingrix-- none found (history of [place] outbreak) * Pneumonia series-- N/A * Mammo-- 11/2019 * PAP-- none found * Cscope(45-75)-- none found (ORDERED 05/2020) (father with hx of colon cancer) * Last Dexa (65+)-- N/A * Anxiety/Depression-- 09/2019 * PHQ-9: 1 * REYMUNDO-7: 0 * Hepatitis C Screen-- none found * Lipid Panel-- ratio: none found * CT cardiac score-- none found * *Due for: TDAP, SHINGRIX, MAMMO, PAP, C SCOPE, HEP C SCREEN, LABS * Patient presents today for health management of NF-1 + MWV. * ABN obtained & brochure given. * She comes in today with complaint of abnormal menses. States she went off BCP and has not had period for almost a year until recently. No periods are irregular and heavy. She is unsure when they are coming. * Patient with history of neurofibromatosis and chronic pain. She is presently on Doxepin 100 mg + Lamictal 150 mg daily. * Follows with heme-onc and derm yearly. States she has plans to start Koselugo which is a new medication for NF, waiting for approval from insurance. Also using medical marijuana but requiring small dose Ambien for sleep now. * 01/03/2020 HEME-ONC F/U: NF-1, recommended derm assessment yearly, BP monitoring, annual mammographyand consideration of breast MRI until age 50. Multiple plexiform neurofibromas, recommended yearly follow-up with neuro- oncology, consider yearly MR imaging of known plexiform tumors. Reimage if there is new pain in the region of known neurofibroma, consider also nerve ultrasound and PET to detect for malignant transformation. * 12/21/2020 MRI Pelvis + Femur: Neurofibromatosis with innumerable neurofibromas throughout the lumbosacral plexus and along the course of the sciatic nerves. No evidence of malignant transformation by MRI. Continued surveillance is recommended. * 10/2020 EMG: Moderately abnormal but indeterminate study. Absent sensory potentials in LE are consistent with a peripheral neuropathy. However, there is a clear asymmetry of distal motor amplitudes, significantly lower on the right side than left consistent with a superimposed process that might include a disorder of the right sciatic nerve, lumbosacral plexus, or L5/S1 nerve roots but which cannot be determined for certain because of the underlying peripheral neuropathy. * 09/2020 ECHO: LV systolic function is normal with EF 60%. Mean global longitudinal strain is -15.5% No prior studies for comparison. * No prior colonoscopy in our records (father with hx of colon cancer). States she needs scope, but waiting to figure above issues first. No melena, hematochezia, constipation, diarrhea, bloating, change in bowel habits. * No prior pap smears in our records * 11/2019 mammogram normal, due for repeat. [facility] Work Phone: History of Present illness Narrative* Pt of Dr. Tom, Tomas Rosado (Front Staff) * Has hx of NF1 , multiple Plexiform neurofibromas . lost to followup with Ne of neurology and seeking results of MRI and Guidance regarding the treatment for the neurofibromas * Relates that her neurologist left ; she has not established with a new one yet. Has plans to toon. * States the medication Koselugo, has helped reduce pain from the tumors. she feels unable to tolerate the skin side effects , vascular side effects. * Skin - erythematous papular eruption over torso , some on face . * Vascular - worseneing of known venous insufficiency ; new persistent. left leg edema ,pitting. * treatment with steroids rxed by neuro did not make a difference. [facility] Work Phone: History of Present illness Narrative* MWV LAST COMPLETED 12/2021 * Health maintenance: * TDAP-- none found * COVID-- none found * Influenza-- Due Fall 2021 * Shingrix-- none found (history of [place] outbreak) * Pneumonia series-- N/A * Mammo-- 11/2019 * PAP-- none found - completed 09/2021 * Cscope(45-75)-- none found (ORDERED 05/2020) (father with hx of colon cancer) * Last Dexa (65+)-- N/A * Anxiety/Depression-- 05/2021 * PHQ-2: 0 * REYMUNDO-7: N/A * Hepatitis C Screen-- 12/2020 negative * Lipid Panel-- ratio: 2.8 in 12/2020 (LDL 114) * CT cardiac score-- none found * ECHO-- 07/2021 (normal with EF 55-60%) * Controlled Substance-- Ambien * CSA: 03/2019 * UDS: 03/2019 * 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 * She would like to discuss post menopausal bleeding. * Wants to know if she should have a BEHAVIORAL THERAPY COORDINATOR referral. * She had no period over 1 year, now having bleeding every month. * Reports terrible discharge only after period of bleeding. * She denies any pelvic pain. No itching, no burning. * Has not been sexually active in last 4-5 years. * Has not been tested for STIs in recent past. 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 * NF managed/followed by neurology and oncology @ [facility]. * Insomnia, taking Ambien 10 mg at bedtime as needed. * Doing well for her. * CSA is due, last completed 03/2019 * UDS is due, last completed 03/2019 [facility] Work Phone: History of Present illness Narrative* MWV LAST COMPLETED 12/2021 * Health maintenance: * TDAP-- none found * COVID-- none found * Influenza-- Due Fall 2021 * Shingrix-- none found (history of [place] outbreak) * Pneumonia series-- N/A * Mammo-- 11/2019 * PAP-- none found - completed 09/2021 * Cscope(45-75)-- none found (ORDERED 05/2020) (father with hx of colon cancer) * Last Dexa (65+)-- N/A * Anxiety/Depression-- 05/2021 * PHQ-2: 0 * REYMUNDO-7: N/A * Hepatitis C Screen-- 12/2020 negative * Lipid Panel-- ratio: 2.8 in 12/2020 (LDL 114) * CT cardiac score-- none found * ECHO-- 07/2021 (normal with EF 55-60%) * Controlled Substance-- Ambien * CSA: 03/2019 * UDS: 03/2019 * 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 * She would like to discuss post menopausal bleeding. * Wants to know if she should have a BEHAVIORAL THERAPY COORDINATOR referral. * She had no period over 1 year, now having bleeding every month. * Reports terrible discharge only after period of bleeding. * She denies any pelvic pain. No itching, no burning. * Has not been sexually active in last 4-5 years. * Has not been tested for STIs in recent past. 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 * NF managed/followed by neurology and oncology @ [facility]. * Insomnia, taking Ambien 10 mg at bedtime as needed. * Doing well for her. 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 Procedures XR MODIFIED BARIUM SWALLOW W SPEECH THERAPY RADIOLOGIC EXAM SWALLOW FUNCTION CONTRAST STUDY Dre Monte MD [address] [place] [address] Xr Imaging Referral ID Status Reason Start Date Expiration Date Visits Requested Visits Authorized [id number] Pending Review Auto-Generat ed Referral 2 05/15/2023 1 1 * Speech Therapy (Routine) - Authorized Specialty Diagnoses / Procedures Referred By Kvng pat Referred To Contact [facility] 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 Procedures CONSULT TO SPEECH THERAPY OFFICE/OUTPATIENT [facility] 60-[place] [address] [place] [address] [facility] [place] [address] Referral ID Status Reason Start Date Expiration Date Visits Requested Visits Authorized [id number] Authorized Auto-Generat ed Referral 2 04/15/2023 99 99 [facility] for referral (narrative)* Diagnostic Procedure Only (Routine) - Closed Specialty Diagnoses / Procedures Referred By Kvng pat Referred To Contact XR IMAGING 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 Procedures XR MODIFIED BARIUM SWALLOW W SPEECH THERAPY RADIOLOGIC EXAM SWALLOW [place] [address] [place] [address] Xr Imaging Referral ID Status Reason Start Date Expiration Date V isits Requested Visits Authorized [id number] Closed Auto-Generate d Referral 04/15/2022 05/15/2023 1 1 [facility] for referral (narrative)* Diagnostic Procedure Only (Routine) - Pending Review Specialty Diagnoses / Procedures [facility] Referred To Contact XR IMAGING Diagnoses Zenker diverticulum Procedures XR ESOPHAGRAM RADIOLOGIC EXAM ESOPHAGUS SINGLE CONTRAST STUDY Jitendra Montgomery MD [address] [place] [address] Xr Imaging Referral ID Status Reason Start Date Expiration Date Visits Requested Visits Authorized [id number] Pending Review Auto-Generat ed Referral 05/23/2022 06/22/2023 1 1 [facility] for referral (narrative)* Outpatient Procedure (Routine) - Authorized Specialty Diagnoses / Procedures Referred By [facility] Referred To Contact [facility] Diagnoses Neurofibromatosis, unspecified (HCC) Neurofibroma Other heart disorders in diseases classified elsewhere Procedures ECG COMPLETE ECG ROUTINE ECG W/LEAST 12 LDS W/I&R Rosa Ponce MD [address] [place] [address] [place] [address] Referral ID Status Reason Start Date Expiration Date Visits Requested Visits Authorized [id number] Authorized Auto-Generat ed Referral 05/23/2022 05/23/2023 1 1 [facility] for referral (narrative)* Outpatient Procedure (Routine) - Pending Review Specialty Diagnoses / Procedures Referred By [facility] Referred To Contact [facility] Diagnoses Other heart disorders in diseases classified elsewhere Neurofibromatosis, unspecified (HCC) Procedures ECHO ECHO TTHRC R-T 2D W/WOM-MODE COMPL SPEC&COLR D Rosa Ponce MD [address] [place] [address] [address] Referral ID Status Reason Start Date Expiration Date Visits Requested Visits Authorized [id number] Pending Review Auto-Generat ed Referral 05/31/2022 05/23/2023 1 1 [facility] for referral (narrative)* Diagnostic Procedure Only (Routine) - Closed Specialty Diagnoses / Procedures [facility] Referred To Contact XR IMAGING Diagnoses Zenker diverticulum Procedures XR ESOPHAGRAM RADIOLOGIC EXAM ESOPHAGUS SINGLE CONTRAST STUDY Jitendra Montgomery MD [address] [place] [address] Xr Imaging Referral ID Status Reason Start Date Expiration Date V isits Requested Visits Authorized [id number] Closed Auto-Generate d Referral 05/23/2022 06/22/2023 1 1 [facility] for referral (narrative)* Consultation (Routine) - Authorized Specialty Diagnoses / Procedures Referred By [facility] Referred To Contact Primary Care Diagnoses Medication management Insomnia, unspecified type Procedures Follow Up In Advanced Primary Care - PCP Ramandeep Tom DO [address] [facility], [place] [address] Referral ID Status Reason Start Date Expiration Date V isits Requested Visits Authorized [id number] Authorized 07/29/2022 01/25/2023 1 1 * Imaging (Routine) - Authorized Specialty Diagnoses / Procedures Referred By [facility] Referred To Contact Radiology Diagnoses Breast cancer screening by mammogram Procedures BI mammo bilateral screening tomosynthesis Ramandeep Tom DO [address] [facility], [place] [address] Referral ID Status Reason Start Date Expiration Date Visits Requested Visits Authorized [id number] Authorized Perform Procedure 07/29/2022 01/25/2023 1 1 * Endoscopy (Routine) - Authorized Specialty Diagnoses / Procedures Referred By [facility] Referred To Contact Gastroenterology Diagnoses Screening for colon cancer Procedures Colonoscopy Ramandeep Tom DO [address] [facility] [address] [address] Referral ID Status Reason Start Date Expiration Date V isits Requested Visits Authorized [id number] Authorized 07/29/2022 01/25/2023 1 1 [facility] Work Phone: reason for visit Narrative* Diagnostic Procedure Only (Routine) - Closed Specialty Diagnoses / Procedures Referred By Contac t Referred To Contact XR IMAGING 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 Procedures XR MODIFIED BARIUM SWALLOW W SPEECH THERAPY RADIOLOGIC EXAM SWALLOW FUNCTION CONTRAST STUDY Dre Monte MD [address] [address] Xr Imaging Referral ID Status Reason Start Date Expiration Date V isits Requested Visits Authorized [id number] Closed Auto-Generate d Referral 04/15/2022 05/15/2023 1 1 [facility] for visit Narrative* Imaging (Routine) - Authorized Specialty Diagnoses / Procedures Referred By Contac t Referred To Contact Radiology Diagnoses Screening for cardiovascular condition Procedures CT cardiac scoring wo IV contrast Ramandeep Tom DO [address] [address] Phone: tel: fax: Referral ID Status Reason Start Date Expiration Date Visits Requested Visits Authorized [id number] Authorized Perform Procedure 02/03/2024 02/02/2025 1 1 [facility] Work Phone: reason for visit Narrative* Imaging (Routine) - Authorized Specialty Diagnoses / Procedures Referred By Contac t Referred To Contact Radiology Diagnoses RUQ abdominal pain Procedures US gallbladder Michelle Menchaca MD [address] [address] Phone: tel: fax: Referral ID Status Reason Start Date Expiration Date Visits Requested Visits Authorized [id number] Authorized Perform Procedure 10/15/2024 10/15/2025 1 1 [facility] Work Phone: [facility] for visit Narrative* MRI/CT (Routine) - Closed Specialty Diagnoses / Procedures Referred By Kvng pat Referred To Contact MR IMAGING 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 Procedures MRI LUMBAR SPINE WO/W IVCON MRI SPINAL CANAL LUMBAR W/O & W/CONTR Dre Gomez MD [address] [place] [address] Phone: tel: fax: MR IMAGING [place] [address] Referral ID Status Reason Start Date Expiration Date V isits Requested Visits Authorized [id number] Closed Auto-Generate d Referral 10/27/2023 11/25/2024 1 1 [facility] for visit Narrative* MRI/CT (Routine) - Closed Specialty Diagnoses / Procedures Referred By Kvng pat Referred To Contact MR IMAGING 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 Procedures MRI THORACIC SPINE WO/W IVCON MRI SPINAL CANAL THORACIC W/O & W/CONTR Dre Gomez MD [address] [place] [address] Phone: tel: fax: MR IMAGING [place] [address] Referral ID Status Reason Start Date Expiration Date V isits Requested Visits Authorized [id number] Closed Auto-Generate d Referral 10/27/2023 11/25/2024 1 1 [facility] for visit Narrative* MRI/CT (Routine) - Closed Specialty Diagnoses / Procedures Referred By Kvng pat Referred To Contact MR IMAGING 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 Procedures MRI CERVICAL SPINE WO/W IVCON MRI SPINAL CANAL CERVICAL W/O & W/CONTR Dre Gomez MD [address] [place] [address] Phone: tel: fax: MR IMAGING [place] [address] Referral ID Status Reason Start Date Expiration Date V isits Requested Visits Authorized [id number] Closed Auto-Generate d Referral 10/27/2023 11/25/2024 1 1 [facility] Summary Purpose Family History No Family History Records Found Father Name Dates Details Family history of malignant neoplasm of colon(V16.0, Z80.0) Status:Active Father Name Dates Details Family history of malignant neoplasm of colon(V16.0, Z80.0) Status:Active Father Name Dates Details Family history of malignant neoplasm of colon(V16.0, Z80.0) Status:Active Father Name Dates Details Family history of malignant neoplasm of colon(V16.0, Z80.0) Status:Active Unknown Family Member Name Dates Details Family history of malignant neoplasm of colon: Father(V16.0, Z80.0) Status:Active Unknown Family Member Name Dates Details Family history of malignant neoplasm of colon: Father(V16.0, Z80.0) Status:Active Unknown Family Member Name Dates Details Family history of malignant neoplasm of colon: Father(V16.0, Z80.0) Status:Active Unknown Family Member Name Dates Details Family history of malignant neoplasm of colon: Father(V16.0, Z80.0) Status:Active Unknown Family Member Name Dates Details Family history of malignant neoplasm of colon: Father(V16.0, Z80.0) Status:Active Unknown Family Member Name Dates Details Family history of malignant neoplasm of colon: Father(V16.0, Z80.0) Status:Active Unknown Family Member Name Dates Details Family history of malignant neoplasm of colon: Father(V16.0, Z80.0) Status:Active Unknown Family Member Name Dates Details Family history of malignant neoplasm of colon: Father(V16.0, Z80.0) Status:Active Unknown Family Member Name Dates Details Family history of malignant neoplasm of colon: Father(V16.0, Z80.0) Status:Active Unknown Family Member Name Dates Details Family history of malignant neoplasm of colon: Father(V16.0, Z80.0) Status:Active Unknown Family Member Name Dates Details Family history of malignant neoplasm of colon: Father(V16.0, Z80.0) Status:Active Unknown Family Member Name Dates Details Family history of malignant neoplasm of colon: Father(V16.0, Z80.0) Status:Active Unknown Family Member Name Dates Details Family history of malignant neoplasm of colon: Father(V16.0, Z80.0) Status:Active Unknown Family Member Name Dates Details Family history of malignant neoplasm of colon: Father(V16.0, Z80.0) Status:Active Unknown Family Member Name Dates Details Family history of malignant neoplasm of colon: Father(V16.0, Z80.0) Status:Active Unknown Family Member Name Dates Details Family history of malignant neoplasm of colon: Father(V16.0, Z80.0) Status:Active Unknown Family Member Name Dates Details Family history of malignant neoplasm of colon: Father(V16.0, Z80.0) Status:Active Unknown Family Member Name Dates Details Family history of malignant neoplasm of colon: Father(V16.0, Z80.0) Status:Active Unknown Family Member Name Dates Details Family history of malignant neoplasm of colon: Father(V16.0, Z80.0) Status:Active Unknown Family Member Name Dates Details Family history of malignant neoplasm of colon: Father(V16.0, Z80.0) Status:Active Unknown Family Member Name Dates Details Family history of malignant neoplasm of colon: Father(V16.0, Z80.0) Status:Active Unknown Family Member Name Dates Details Family history of malignant neoplasm of colon: Father(V16.0, Z80.0) Status:Active Unknown Family Member Name Dates Details Family history of malignant neoplasm of colon: Father(V16.0, Z80.0) Status:Active Unknown Family Member Name Dates Details Family history of malignant neoplasm of colon: Father(V16.0, Z80.0) Status:Active Advance Directives No Advanced Directives Records FoundLatest Code Status on File Code Status Date Activated Date Inactivated Comments 07/13/2004 2:17 PM 07/13/2004 3:17 PM Latest Code Status on File Code Status Date Activated Date Inactivated Comments 07/13/2004 2:17 PM 07/13/2004 3:17 PM Advance Directive Response Recorded Date/ Time Living Will No August 01, 2021 8:47pm Power of Air Crew Supervisor No August 01 8:47pm Latest Code Status on File Code Status Date Activated Date Inactivated Comments None 07/13/2004 2:17 PM 07/13/2004 3:17 PM Date Activated Date Inactivated Comments 07/13/2004 2:17 PM 07/13/2004 3:17 PM Date Activated Date Inactivated Comments 07/13/2004 2:17 PM 07/13/2004 3:17 PM Chief Complaint f/u NF-1 + MWVf/u NF-1 + MWVf/u NF-1 + MWVChief Complaint: SANDRA GAMMELL is here with a chief complaint of Swelling in legs, hand and feet . has been having swelling for a few months, was given prednisone from the urgent care which helped but as soon as she d/c she puffed back up. she also has a red rash on her chest and face. She thinks these are side effects from [place] and her oncologist just stopped practicing. her goal today is todiscuss the swelling and where she should go from here.Chief Complaint: SANDRA SANCHEZ is here with a chief complaint of Swelling in legs, hand and feet . has been having swelling for a few months, was given prednisone from the urgent care which helped but as soon as she d/c she puffed back up. she also has a red rash on her chest and face. She thinks these are side effects from [place] and her oncologist just stopped practicing. her goal today is todiscuss the swelling and where she should go from here.SANDRA SANCHEZ is here for a follow-up for NF-1, chronic pain, insomnia + CS visit.SANDRA SANCHEZ is here for a follow-up for NF-1, chronic pain, insomnia + CS visit. Reason for Referral Specialty Diagnoses / Procedures Referred By Contparas t Referred To Contact MR IMAGING Diagnoses Benign neoplasm of peripheral nerve sheath Procedures MRI CERVICAL SPINE WO/W IVCON MRI SPINAL CANAL CERVICAL W/O & W/CONTR Dre Gomez MD [address] [place], [place] [id number] Mr Imaging Referral ID Status Reason Start Date Expiration Date V isits Requested Visits Authorized [id number] Closed Auto-Generate d Referral 08/22/2021 09/21/2022 1 1 Specialty Diagnoses / Procedures Referred By Contac t Referred To Contact MR IMAGING Diagnoses Benign neoplasm of peripheral nerve sheath Procedures MRI SOFT TISSUE NECK WO/W IVCON MRI ORBIT FACE & NECK W/O & W/CONTRAST Dre oGmez MD [address] [place], [place] [id number] Mr Imaging Referral ID Status Reason Start Date Expiration Date V isits Requested Visits Authorized [id number] Closed Auto-Generate d Referral 08/22/2021 09/21/2022 1 1 Specialty Diagnoses / Procedures Referred By Contac t Referred To Contact MR IMAGING 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 pain Procedures MRI PELVIS WO/W IVCON MRI PELVIS W/O & W/CONTRAST MATERIAL Dre Monte MD [address] [place] [address] Mr Imaging [place] [address] Referral ID Status Reason Start Date Expiration Date V isits Requested Visits Authorized [id number] Closed Auto-Generate d Referral 03/13/2022 04/12/2023 1 1 Specialty Diagnoses / Procedures Referred By Contac t Referred To Contact MR IMAGING 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 pain Procedures MRI THORACIC SPINE WO/W IVCON MRI SPINAL CANAL THORACIC W/O & W/CONTR MATRL Dre Monte MD [address] [place] [address] Mr Imaging [place] [address] Referral ID Status Reason Start Date Expiration Date V isits Requested Visits Authorized [id number] Closed Auto-Generate d Referral 03/13/2022 04/12/2023 1 1 Specialty Diagnoses / Procedures Referred By Contac t Referred To Contact MR IMAGING 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 pain Procedures MRI LUMBAR SPINE WO/W IVCON MRI SPINAL CANAL LUMBAR W/O & W/CONTR MATRL Dre Monte MD [address] [place] [address] Mr Imaging [place] [address] Referral ID Status Reason Start Date Expiration Date V isits Requested Visits Authorized [id number] Closed Auto-Generate d Referral 03/13/2022 04/12/2023 1 1 Specialty Diagnoses / Procedures Referred By Contac t Referred To Contact MR IMAGING 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 pain Procedures MRI CERVICAL SPINE WO/W IVCON MRI SPINAL CANAL CERVICAL W/O & W/CONTR MATRL Dre Monte MD [address] [place] [phone] Mr Imaging [place] [address] Referral ID Status Reason Start Date Expiration Date V isits Requested Visits Authorized [id number] Closed Auto-Generate d Referral 03/13/2022 04/12/2023 1 1 Specialty Diagnoses / Procedures Referred By Contac t Referred To Contact Radiology Diagnoses Postmenopausal estrogen deficiency Procedures XR DEXA bone density Ramandeep Tom, DO [address] [facility], [place] [address] Referral ID Status Reason Start Date Expiration Date Visits Requested Visits Authorized [id number] Pending Review Perform Procedure 08/19/2023 08/18/2024 1 1 Specialty Diagnoses / Procedures Referred By Contac t Referred To Contact Gastroenterology Diagnoses Screening for colon cancer Procedures Colonoscopy Screening; High Risk Patient; dad with hx of colon cancer [place] COLONOSCOPY FLX DX W/COLLJ SPEC WHEN PFRMD [place] COLON CA SCRN NOT HI RSK IND [place] COLORECTAL SCRN; HI RISK IND [place] COLONOSCOPY W/BIOPSY SINGLE/MULTIPLE [place] COLSC FLX W/RMVL OF TUMOR POLYP LESION SNARE TQ [place] COLSC FLX W/REMOVAL LESION BY HOT BX FORCEPS Ramandeep Tom, DO [address] [facility], [address] [address] Referral ID Status Reason Start Date Expiration Date V isits Requested Visits Authorized [id number] Pending Review 08/19/2023 08/18/2024 1 1 Specialty Diagnoses / Procedures Referred By Contac t Referred To Contact Radiology Diagnoses Other screening mammogram Procedures BI mammo bilateral screening tomosynthesis Ramandeep Tom, DO [address] [facility], [address] [address] Referral ID Status Reason Start Date Expiration Date Visits Requested Visits Authorized [id number] Authorized Perform Procedure 08/19/2023 08/18/2024 1 1 Specialty Diagnoses / Procedures Referred By Contac t Referred To Contact MR IMAGING Diagnoses Neurofibromatosis (HCC) Procedures MRI THORACIC SPINE WO/W IVCON MRI SPINAL CANAL THORACIC W/O & W/CONTR MATRL Lobbous, Dre, MD [address] [place] [address] Mr Imaging [place] [address] Referral ID Status Reason Start Date Expiration Date V isits Requested Visits Authorized [id number] Closed Auto-Generate d Referral 10/16/2022 11/15/2023 1 1 Specialty Diagnoses / Procedures Referred By Contac t Referred To Contact MR IMAGING Diagnoses Neurofibromatosis (HCC) Procedures MRI LUMBAR SPINE WO/W IVCON MRI SPINAL CANAL LUMBAR W/O & W/CONTR Dre Gomez MD [address] [place] [address] Mr Imaging [place] [address] Referral ID Status Reason Start Date Expiration Date V isits Requested Visits Authorized [id number] Closed Auto-Generate d Referral 10/16/2022 11/15/2023 1 1 Specialty Diagnoses / Procedures Referred By Contac t Referred To Contact MR IMAGING Diagnoses Neurofibromatosis (HCC) Procedures MRI PELVIS WO/W IVCON MRI PELVIS W/O & W/CONTRAST MATERIAL Dre Monte MD [address] [place] [phone] Mr Imaging [place] [address] Referral ID Status Reason Start Date Expiration Date V isits Requested Visits Authorized [id number] Closed Auto-Generate d Referral 10/16/2022 11/15/2023 1 1 Specialty Diagnoses / Procedures Referred By Contac t Referred To Contact MR IMAGING Diagnoses Neurofibromatosis (HCC) Procedures MRI CERVICAL SPINE WO/W IVCON MRI SPINAL CANAL CERVICAL W/O & W/CONTR Dre Gomez MD [address] [place] [phone] Mr Imaging [place] [address] Referral ID Status Reason Start Date Expiration Date V isits Requested Visits Authorized [id number] Closed Auto-Generate d Referral 10/16/2022 11/15/2023 1 1 Specialty Diagnoses / Procedures Referred By Contac t Referred To Contact MR IMAGING Diagnoses Nerve sheath tumor Procedures MRI BRAIN WO/W IVCON MRI BRAIN BRAIN STEM W/O W/CONTRAST MATERIAL Dre Monte MD [address] [place] [phone] Mr Imaging [facility] Referral ID Status Reason Start Date Expiration Date Visits Requested Visits Authorized [id number] Pending Review Auto-Generat ed Referral 10/24/2023 11/22/2024 1 1 Specialty Diagnoses / Procedures Referred By Contac t Referred To Contact Diagnoses Urinary incontinence, unspecified type Nerve sheath tumor Procedures CONSULT TO URO GYNECOLOGY OFFICE/OUTPATIENT NEW [facility] 60 MINUTES Dre Monte MD [address] [place] [address] Referral ID Status Reason Start Date Expiration Date Visits Requested Visits Authorized [id number] Authorized PCP Requested Referral Auto-Generate d Referral 10/27/2023 10/26/2024 1 1 Specialty Diagnoses / Procedures Referred By Contac t Referred To Contact MR IMAGING 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 Procedures MRI LUMBAR SPINE WO/W IVCON MRI SPINAL CANAL LUMBAR W/O & W/CONTR MATRL Dre Monte MD [address] [place] [address] Mr Imaging [place] [address] Referral ID Status Reason Start Date Expiration Date Visits Requested Visits Authorized [id number] Pending Review Auto-Generat ed Referral 10/27/2023 11/25/2024 1 1 Specialty Diagnoses / Procedures Referred By Contac t Referred To Contact MR IMAGING 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 Procedures MRI THORACIC SPINE WO/W IVCON MRI SPINAL CANAL THORACIC W/O & W/CONTR MATRL Dre Monte MD [address] [place] [phone] Mr Imaging [facility] Referral ID Status Reason Start Date Expiration Date Visits Requested Visits Authorized [id number] Pending Review Auto-Generat ed Referral 10/27/2023 11/25/2024 1 1 Specialty Diagnoses / Procedures Referred By Contac t Referred To Contact MR IMAGING 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 Procedures MRI CERVICAL SPINE WO/W IVCON MRI SPINAL CANAL CERVICAL W/O & W/CONTR Dre Gomez MD [address] [place] [address] Mr Imaging [place] [address] Referral ID Status Reason Start Date Expiration Date Visits Requested Visits Authorized [id number] Pending Review Auto-Generat ed Referral 10/27/2023 11/25/2024 1 1 Specialty Diagnoses / Procedures Referred By Contac t Referred To Contact [facility] Diagnoses Spasticity Chronic pain syndrome Neurofibromatosis 2 (HCC) Procedures CONSULT TO PHYSICAL MEDICINE AND REHABILITATION OFFICE/OUTPATIENT [facility] 60 MINUTES Estelle Reno MD [address] [place] [address] [facility] [place] [address] Referral ID Status Reason Start Date Expiration Date Visits Requested Visits Authorized [id number] Authorized PCP Requested Referral Auto-Generate d Referral 11/26/2023 11/11/2024 1 1 Specialty Diagnoses / Procedures Referred By Contac t Referred To Contact [facility] Diagnoses Myofascial pain Neurofibromatosis (HCC) 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 on rotation to right Procedures CONSULT TO PHYSICAL THERAPY PHYSICAL THERAPY EVALUATION [facility] 45 MINS Candido Chavez MD [address] [place] [address] [facility] [place] [address] Referral ID Status Reason Start Date Expiration Date Visits Requested Visits Authorized [id number] Authorized PCP Requested Referral Auto-Generate d Referral 12/12/2023 12/11/[phone] Referral ID Status Reason Start Date Expiration Date Visits Requested Visits Authorized [id number] Authorized Perform Procedure 08/19/2023 08/18/2024 1 1 Specialty Diagnoses / Procedures Referred By Contac t Referred To Contact Radiology Diagnoses Screening for cardiovascular condition Procedures CT cardiac scoring wo IV contrast Ramandeep Tom DO [address] [facility], [place] [address] [place] [id number] Referral ID Status Reason Start Date Expiration Date Visits Requested Visits Authorized [id number] Authorized Perform Procedure 02/03/2024 02/02/2025 1 1 Specialty Diagnoses / Procedures Referred By Kvng pat Referred To Contact Physical Therapy Diagnoses Neurofibromatosis (Multi) Neck stiffness Cervicogenic headache Other complicated headache syndrome Ramandeep Tom, [address] [facility], [place] [address] [place] [address] Referral ID Status Reason Start Date Expiration Date Visits Requested Visits Authorized [id number] Pending Review Consult and Treat 02/03/2024 02/02/2025 1 1 Chief Complaint and Reason for Visit Chief Complaint CONCERN FOR UTI/BLAD DAHIANA Reason for Visit UTI (urinary tract i nfection) Additional Source Comments INFORMATION SOURCE (unrecogn ized section and content) DATE CREATED AUTHOR 11/11/2017 [facility] DATE CREATED AUTHOR AUTHOR'S ORGANIZ ATION 09/20/2020 [facility] DATE CREATED AUTHOR AUTHOR'S ORGANIZ ATION 10/17/2021 [facility] DATE CREATED AUTHOR AUTHOR'S ORGANIZ ATION 05/16/2022 [facility] DATE CREATED AUTHOR AUTHOR'S ORGANIZ ATION 01/05/2023 [facility] DATE CREATED AUTHOR AUTHOR'S ORGANIZ ATION 03/22/2024 [facility] DATE CREATED AUTHOR AUTHOR'S ORGANIZ ATION 06/19/2024 [facility] DATE CREATED AUTHOR AUTHOR'S ORGANIZ ATION 10/25/2024 [facility] DATE CREATED AUTHOR AUTHOR'S ORGANIZ ATION 11/10/2024 [facility] DATE CREATED AUTHOR AUTHOR'S ORGANIZ ATION 11/20/2024 [facility] Ambulatory Source Comments (unrecognize d section and content) In the event this informatio n is protected by the Federal Confidentiality of Alcohol and Drug Abuse Patient Records regulations: The Federal rules restrict any use of the information to criminally investigate or prosecute any alcohol or drug abuse patient.[facility] System[facility] the event this information is protected by the Federal Confidentiality of Alcohol and Drug Abuse Patient Records regulations: The Federal rules restrict any use of the information to criminally investigate or prosecute any alcohol or drug abuse patient.[facility] SystemIn the event this information is protected by the Federal Confidentiality of Alcohol and Drug Abuse Patient Records regulations: The Federal rules restrict any use of the information to criminally investigate or prosecute any alcohol or drug abuse patient.[facility] SystemIn the event this information is protected by the Federal Confidentiality of Alcohol and Drug Abuse Patient Records regulations: The Federal rules restrict any use of the information to criminally investigate or prosecute any alcohol or drug abuse patient.[facility] SystemIn the event this information is protected by the Federal Confidentiality of Alcohol and Drug Abuse Patient Records regulations: The Federal rules restrict any use of the information to criminally investigate or prosecute any alcohol or drug abuse patient.[facility] SystemIn the event this information is protected by the Federal Confidentiality of Alcohol and Drug Abuse Patient Records regulations: The Federal rules restrict any use of the information to criminally investigate or prosecute any alcohol or drug abuse patient.[facility] SystemIn the event this information is protected by the Federal Confidentiality of Alcohol and Drug Abuse Patient Records regulations: The Federal rules restrict any use of the information to criminally investigate or prosecute any alcohol or drug abuse patient.[facility] SystemIn the event this information is protected by the Federal Confidentiality of Alcohol and Drug Abuse Patient Records regulations: The Federal rules restrict any use of the information to criminally investigate or prosecute any alcohol or drug abuse patient.[facility] SystemIn the event this information is protected by the Federal Confidentiality of Alcohol and Drug Abuse Patient Records regulations: The Federal rules restrict any use of the information to criminally investigate or prosecute any alcohol or drug abuse patient.[facility] SystemIn the event this information is protected by the Federal Confidentiality of Alcohol and Drug Abuse Patient Records regulations: The Federal rules restrict any use of the information to criminally investigate or prosecute any alcohol or drug abuse patient.[facility] SystemIn the event this information is protected by the Federal Confidentiality of Alcohol and Drug Abuse Patient Records regulations: The Federal rules restrict any use of the information to criminally investigate or prosecute any alcohol or drug abuse patient.[facility] SystemIn the event this information is protected by the Federal Confidentiality of Alcohol and Drug Abuse Patient Records regulations: The Federal rules restrict any use of the information to criminally investigate or prosecute any alcohol or drug abuse patient.[facility] SystemIn the event this information is protected by the Federal Confidentiality of Alcohol and Drug Abuse Patient Records regulations: The Federal rules restrict any use of the information to criminally investigate or prosecute any alcohol or drug abuse patient.[facility] SystemIn the event this information is protected by the Federal Confidentiality of Alcohol and Drug Abuse Patient Records regulations: The Federal rules restrict any use of the information to criminally investigate or prosecute any alcohol or drug abuse patient.[facility] SystemIn the event this information is protected by the Federal Confidentiality of Alcohol and Drug Abuse Patient Records regulations: The Federal rules restrict any use of the information to criminally investigate or prosecute any alcohol or drug abuse patient.[facility] SystemIn the event this information is protected by the Federal Confidentiality of Alcohol and Drug Abuse Patient Records regulations: The Federal rules restrict any use of the information to criminally investigate or prosecute any alcohol or drug abuse patient.[facility] SystemIn the event this information is protected by the Federal Confidentiality of Alcohol and Drug Abuse Patient Records regulations: The Federal rules restrict any use of the information to criminally investigate or prosecute any alcohol or drug abuse patient.[facility] SystemIn the event this information is protected by the Federal Confidentiality of Alcohol and Drug Abuse Patient Records regulations: The Federal rules restrict any use of the information to criminally investigate or prosecute any alcohol or drug abuse patient.[facility] SystemIn the event this information is protected by the Federal Confidentiality of Alcohol and Drug Abuse Patient Records regulations: The Federal rules restrict any use of the information to criminally investigate or prosecute any alcohol or drug abuse patient.[facility] SystemIn the event this information is protected by the Federal Confidentiality of Alcohol and Drug Abuse Patient Records regulations: The Federal rules restrict any use of the information to criminally investigate or prosecute any alcohol or drug abuse patient.[facility] SystemIn the event this information is protected by the Federal Confidentiality of Alcohol and Drug Abuse Patient Records regulations: The Federal rules restrict any use of the information to criminally investigate or prosecute any alcohol or drug abuse patient.[facility] SystemIn the event this information is protected by the Federal Confidentiality of Alcohol and Drug Abuse Patient Records regulations: The Federal rules restrict any use of the information to criminally investigate or prosecute any alcohol or drug abuse patient.[facility] SystemIn the event this information is protected by the Federal Confidentiality of Alcohol and Drug Abuse Patient Records regulations: The Federal rules restrict any use of the information to criminally investigate or prosecute any alcohol or drug abuse patient.[facility] SystemIn the event this information is protected by the Federal Confidentiality of Alcohol and Drug Abuse Patient Records regulations: The Federal rules restrict any use of the information to criminally investigate or prosecute any alcohol or drug abuse patient.[facility] SystemIn the event this information is protected by the Federal Confidentiality of Alcohol and Drug Abuse Patient Records regulations: The Federal rules restrict any use of the information to criminally investigate or prosecute any alcohol or drug abuse patient.[facility] SystemIn the event this information is protected by the Federal Confidentiality of Alcohol and Drug Abuse Patient Records regulations: The Federal rules restrict any use of the information to criminally investigate or prosecute any alcohol or drug abuse patient.[facility] SystemIn the event this information is protected by the Federal Confidentiality of Alcohol and Drug Abuse Patient Records regulations: The Federal rules restrict any use of the information to criminally investigate or prosecute any alcohol or drug abuse patient.[facility] SystemIn the event this information is protected by the Federal Confidentiality of Alcohol and Drug Abuse Patient Records regulations: The Federal rules restrict any use of the information to criminally investigate or prosecute any alcohol or drug abuse patient.[facility] SystemIn the event this information is protected by the Federal Confidentiality of Alcohol and Drug Abuse Patient Records regulations: The Federal rules restrict any use of the information to criminally investigate or prosecute any alcohol or drug abuse patient.[facility] SystemIn the event this information is protected by the Federal Confidentiality of Alcohol and Drug Abuse Patient Records regulations: The Federal rules restrict any use of the information to criminally investigate or prosecute any alcohol or drug abuse patient.[facility] SystemIn the event this information is protected by the Federal Confidentiality of Alcohol and Drug Abuse Patient Records regulations: The Federal rules restrict any use of the information to criminally investigate or prosecute any alcohol or drug abuse patient.[facility] SystemIn the event this information is protected by the Federal Confidentiality of Alcohol and Drug Abuse Patient Records regulations: The Federal rules restrict any use of the information to criminally investigate or prosecute any alcohol or drug abuse patient.[facility] SystemIn the event this information is protected by the Federal Confidentiality of Alcohol and Drug Abuse Patient Records regulations: The Federal rules restrict any use of the information to criminally investigate or prosecute any alcohol or drug abuse patient.[facility] SystemIn the event this information is protected by the Federal Confidentiality of Alcohol and Drug Abuse Patient Records regulations: The Federal rules restrict any use of the information to criminally investigate or prosecute any alcohol or drug abuse patient.[facility] SystemIn the event this information is protected by the Federal Confidentiality of Alcohol and Drug Abuse Patient Records regulations: The Federal rules restrict any use of the information to criminally investigate or prosecute any alcohol or drug abuse patient.[facility] SystemIn the event this information is protected by the Federal Confidentiality of Alcohol and Drug Abuse Patient Records regulations: The Federal rules restrict any use of the information to criminally investigate or prosecute any alcohol or drug abuse patient.[facility] SystemIn the event this information is protected by the Federal Confidentiality of Alcohol and Drug Abuse Patient Records regulations: The Federal rules restrict any use of the information to criminally investigate or prosecute any alcohol or drug abuse patient.[facility] SystemIn the event this information is protected by the Federal Confidentiality of Alcohol and Drug Abuse Patient Records regulations: The Federal rules restrict any use of the information to criminally investigate or prosecute any alcohol or drug abuse patient.[facility] SystemIn the event this information is protected by the Federal Confidentiality of Alcohol and Drug Abuse Patient Records regulations: The Federal rules restrict any use of the information to criminally investigate or prosecute any alcohol or drug abuse patient.[facility] SystemIn the event this information is protected by the Federal Confidentiality of Alcohol and Drug Abuse Patient Records regulations: The Federal rules restrict any use of the information to criminally investigate or prosecute any alcohol or drug abuse patient.[facility] SystemIn the event this information is protected by the Federal Confidentiality of Alcohol and Drug Abuse Patient Records regulations: The Federal rules restrict any use of the information to criminally investigate or prosecute any alcohol or drug abuse patient.[facility] SystemIn the event this information is protected by the Federal Confidentiality of Alcohol and Drug Abuse Patient Records regulations: The Federal rules restrict any use of the information to criminally investigate or prosecute any alcohol or drug abuse patient.[facility] SystemIn the event this information is protected by the Federal Confidentiality of Alcohol and Drug Abuse Patient Records regulations: The Federal rules restrict any use of the information to criminally investigate or prosecute any alcohol or drug abuse patient.[facility] Reason for Visit (unrecogniz ed section and content) Reason Comments Consult Specialty Diagnoses / Procedures Referred By Kvng pat Referred To Contact Cardiothoracic Surgery Diagnoses Neurofibromatosis, unspecified (HCC) Zenker's diverticulum Procedures CONSULT TO CARDIOLOGY OFFICE/OUTPATIENT [facility] 60-74 MINUTES Dre Monte MD [address] [place] [address] Referral ID Status Reason Start Date Expiration Date V isits Requested Visits Authorized [id number] Closed PCP Requested Referral 05/23/2022 05/23/2023 1 1 Specialty Diagnoses / Procedures Referred By Kvng pat Referred To Contact MR IMAGING Diagnoses Benign neoplasm of peripheral nerve sheath Procedures MRI SOFT TISSUE NECK WO/W IVCON MRI ORBIT FACE & NECK W/O & W/CONTRAST MATRL Dre Monte MD [facility] [place] [address] Mr Imaging Referral ID Status Reason Start Date Expiration Date V isits Requested Visits Authorized [id number] Closed Auto-Generate d Referral 08/22/2021 09/21/2022 1 1 Reason Comments Refill Request Specialty Diagnoses / Procedures Referred By Kvng pat Referred To Contact Diagnoses Neurofibromatosis (HCC) Procedures CONSULT TO MEDICAL GENETICS - GENERAL OFFICE/OUTPATIENT [facility] 60-74 MINUTES MEDICAL GENETICS COUNSELING EACH 30 MINUTES Stefan Tariq MD [address] [place] [address] [facility] [place] [address] [place] [address] Referral ID Status Reason Start Date Expiration Date Visits Requested Visits Authorized [id number] Pending Review PCP Requested Referral Auto-Generate d Referral 07/05/2021 07/05/2022 1 1 Reason Comments Genetic testing Reason Comments Established Patient Reason Comments Patient Update Reason Comments Speech Instrumental Swallow Eval Speech Discharge Specialty Diagnoses / Procedures Referred By Kvng pat Referred To Contact XR IMAGING 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 Procedures XR MODIFIED BARIUM SWALLOW W SPEECH THERAPY RADIOLOGIC EXAM SWALLOW FUNCTION CONTRAST STUDY Dre Monte MD [address] [place] [address] Xr Imaging Referral ID Status Reason Start Date Expiration Date V isits Requested Visits Authorized [id number] Closed Auto-Generate d Referral 04/15/2022 05/15/2023 1 1 Reason Comments Results Reason Comments Consult Symptomatic Zenker d iverticulum Reason Comments SOFYA first available Reason Comments Radio GI Main HB6 Specialty Diagnoses / Procedures Referred By Contac t Referred To Contact XR IMAGING Diagnoses Zenker diverticulum Procedures XR ESOPHAGRAM RADIOLOGIC EXAM ESOPHAGUS SINGLE CONTRAST STUDY Jitendra Montgomery MD [address] [place] [address] Xr Imaging Referral ID Status Reason Start Date Expiration Date V isits Requested Visits Authorized [id number] Closed Auto-Generate d Referral 05/23/2022 06/22/2023 1 1 Reason Comments Appointment Reason Comments Follow-up Pt presents for 6 mo nt follow up- pt states no concerns at this time. 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 Pt states no new concerns at this time. Flu Vaccine Pt declines flu vacc ine at this time. Specialty Diagnoses / Procedures Referred By Contac t Referred To Contact MR IMAGING Diagnoses Neurofibromatosis (HCC) Procedures MRI THORACIC SPINE WO/W IVCON MRI SPINAL CANAL THORACIC W/O & W/CONTR Dre Gomez MD [address] [place] [address] Mr Imaging [place] [address] Referral ID Status Reason Start Date Expiration Date V isits Requested Visits Authorized [id number] Closed Auto-Generate d Referral 10/16/2022 11/15/2023 1 1 Specialty Diagnoses / Procedures Referred By Contac t Referred To Contact MR IMAGING Diagnoses Neurofibromatosis (HCC) Procedures MRI LUMBAR SPINE WO/W IVCON MRI SPINAL CANAL LUMBAR W/O & W/CONTR Dre Gomez MD [address] [place] [address] Mr Imaging [place] [address] Referral ID Status Reason Start Date Expiration Date V isits Requested Visits Authorized [id number] Closed Auto-Generate d Referral 10/16/2022 11/15/2023 1 1 Specialty Diagnoses / Procedures Referred By Contac t Referred To Contact MR IMAGING Diagnoses Neurofibromatosis (HCC) Procedures MRI PELVIS WO/W IVCON MRI PELVIS W/O & W/CONTRAST MATERIAL Dre Monte MD [address] [place] [address] Mr Imaging [place] [address] Referral ID Status Reason Start Date Expiration Date V isits Requested Visits Authorized [id number] Closed Auto-Generate d Referral 10/16/2022 11/15/2023 1 1 Specialty Diagnoses / Procedures Referred By Contac t Referred To Contact MR IMAGING Diagnoses Neurofibromatosis (HCC) Procedures MRI CERVICAL SPINE WO/W IVCON MRI SPINAL CANAL CERVICAL W/O & W/CONTR Dre Gomez MD [address] [place] [address] Mr Imaging [place] [address] Referral ID Status Reason Start Date Expiration Date V isits Requested Visits Authorized [id number] Closed Auto-Generate d Referral 10/16/2022 11/15/2023 1 1 Reason Comments Consult Reason Comments Eye Problem Left eye, irritation and swelling in corner near nose, burning and redness x 4 days goup in corner in morning Specialty Diagnoses / Procedures Referred By Contac t Referred To Contact Radiology Diagnoses Other screening mammogram Procedures BI mammo bilateral screening tomosynthesis Ramandeep Tom, DO [address] [facility], [facility] [address] [place] [address] Referral ID Status Reason Start Date Expiration Date Visits Requested Visits Authorized [id number] Authorized Perform Procedure 08/19/2023 08/18/2024 1 1 Specialty Diagnoses / Procedures Referred By Contac t Referred To Contact Radiology Diagnoses Postmenopausal estrogen deficiency Procedures XR DEXA bone density Ramandeep Tom, DO [address] [facility], [place] [address] [place] [address] Referral ID Status Reason Start Date Expiration Date Visits Requested Visits Authorized [id number] Authorized Perform Procedure 08/19/2023 08/18/2024 1 1 Reason Comments Medicare Annual Wellness Visit Subsequen t No concerns Reason Comments Follow-up Pt presents for 6 mo nth follow up- pt states no new concerns at this time. Flu Vaccine Pt declines flu vacc ine at this time. Reason Comments Follow-up Reason Comments Follow-up Care Teams (unrecognized sec tion and content) Director Of Neurology Relationship Specialty Start Date End Date Garcia Rose PCP - General 06/12/09 Director Of Neurology Relationship Specialty Start Date End Date Garcia Rose PCP - General 06/12/09 Director Of Neurology Relationship Specialty Start Date End Date Garcai Rose PCP - General 06/12/09 Director Of Neurology Relationship Specialty Start Date End Date Ramandeep Tom DO [address] [facility] [address] [address] [place], [place] [address] PCP - General Family Practice 11/01/21 Director Of Neurology Relationship Specialty Start Date End Date Ramandeep Tom, DO [address] [place] [address] PCP - General Family Practice 11/01/21 Director Of Neurology Relationship Specialty Start Date End Date Ramandeep Tom, DO [address] [address] [place] [address] PCP - General Family Practice 11/01/21 Director Of Neurology Relationship Specialty Start Date End Date Ramandeep Tom, DO [address] [place] [address] PCP - General Family Practice 11/01/21 Director Of Neurology Relationship Specialty Start Date End Date Ramandeep Tom, DO [address] [place] [address] [place] [place] [address] PCP - General Family Medicine 11/01/21 Director Of Neurology Relationship Specialty Start Date End Date Ramandeep Tom, DO [address] [place] [address] PCP - General Family Medicine 11/01/21 Director Of Neurology Relationship Specialty Start Date End Date Ramandeep Tom, DO [address] [place] [address] PCP - General Family Medicine 11/01/21 Director Of Neurology Relationship Specialty Start Date End Date Ramandeep Tom, DO [address] [place] [address] PCP - General Family Medicine 11/01/21 Director Of Neurology Relationship Specialty Start Date End Date Ramandeep Tom, DO [address] [place] [address] PCP - General Family Medicine 11/01/21 Director Of Neurology Relationship Specialty Start Date End Date Ramandeep Tom, DO [address] [facility] [address] [place] [address] PCP - General Family Medicine 11/01/21 Director Of Neurology Relationship Specialty Start Date End Date Ramandeep Tom, DO [address] [facility] [address] [place] [address] PCP - General Family Medicine 11/01/21 Director Of Neurology Relationship Specialty Start Date End Date Ramandeep Tom, DO [address] [facility] [address] [place] [address] PCP - General Family Medicine 11/01/21 Director Of Neurology Relationship Specialty Start Date End Date Ramandeep Tom, DO [address] [facility] [address] [place] [address] PCP - General Family Medicine 11/01/21 Director Of Neurology Relationship Specialty Start Date End Date Ramandeep Tom, DO [address] [facility] [address] [place] [address] PCP - General Family Medicine 11/01/21 Director Of Neurology Relationship Specialty Start Date End Date Ramandeep Tom, DO [address] [facility] [address] [place] [address] PCP - General Family Medicine 11/01/21 Director Of Neurology Relationship Specialty Start Date End Date Ramandeep Tom, DO [address] [facility] [address] [place] [address] PCP - General Family Medicine 11/01/21 Director Of Neurology Relationship Specialty Start Date End Date Ramandeep Tom, DO [address] [facility] [address] [place] [address] PCP - General Family Medicine 11/01/21 Director Of Neurology Relationship Specialty Start Date End Date Ramandeep Tom, DO [address] [place] [address] PCP - General Family Medicine 11/01/21 Dre Monte MD [address] [place] [address] Neurology 07/10/22 Director Of Neurology Relationship Specialty Start Date End Date Ramandeep Tom DO [address] [address] PCP - General Family Medicine 11/01/21 Dre Monte MD [address] [address] Neurology 07/10/22 Team Status: Active Member Role Status Dates RAMANDEEP SILVER MELARA Family Provider Active No Primary Care Physician Primary Care Provider Active Team Status: Inactive Member Role Status Dates No Primary Care Physician Primary Care Provider, Refer ring Provider Active Ismael YEPEZ PA Attending Provider Active Team Status: Inactive Member Role Status Dates No Primary Care Physician Primary Care Provider Active Ismael YEPEZ PA Attending Provider Active Director Of Neurology Relationship Specialty Start Date End Date Ramandeep Tom DO [address] [facility], [facility] 1 [place] [address] PCP - General 11/04/18 Ramandeep Tom DO [address] [place] [address], [facility] 1 [place] [address] PCP - MSSP ACO Attributed Provider 08/17/21 Director Of Neurology Relationship Specialty Start Date End Date Ramandeep Tom DO [address] [place] [address] 1 [place] [address] PCP - General Family Medicine 11/01/21 Dre Monte MD [address] [place] [address] Neurology 07/10/22 Director Of Neurology Relationship Specialty Start Date End Date Ramandeep Tom DO [address] [facility], [address] [place] [address] PCP - General 11/04/18 Ramandeep Tom DO [address] [facility], [address] [place] [address] PCP - MSSP ACO Attributed Provider 08/17/21 Director Of Neurology Relationship Specialty Start Date End Date Ramandeep Tom DO [address] [facility] [address] [place] [address] PCP - General Family Medicine 11/01/21 Dre Monte MD [address] [place] [address] Neurology 07/10/22 Director Of Neurology Relationship Specialty Start Date End Date Ramandeep Tom DO [address] [facility] [address] [place] [address] PCP - General Family Medicine 11/01/21 Dre Monte MD [address] [place] [address] Neurology 07/10/22 Director Of Neurology Relationship Specialty Start Date End Date Ramandeep Tom DO [address] [facility] [address] [place] [address] PCP - General Family Medicine 11/01/21 Dre Monte MD [address] [place] [address] Neurology 07/10/22 Director Of Neurology Relationship Specialty Start Date End Date Ramandeep Tom DO [address] [facility] 1 [place], [place] [address] PCP - General Family Medicine 11/01/21 Dre Monte MD [address] [place] [address] Neurology 07/10/22 Director Of Neurology Relationship Specialty Start Date End Date Ramandeep Tom DO [address] [facility] 1 [place] [address] PCP - General Family Medicine 11/01/21 Dre Monte MD [address] [place] [address] Neurology 07/10/22 Director Of Neurology Relationship Specialty Start Date End Date Ramandeep Tom DO [address] [facility] 1 [place] [address] PCP - General Family Medicine 11/01/21 Dre Monte MD [address] [place] [address] Neurology 07/10/22 Director Of Neurology Relationship Specialty Start Date End Date Ramandeep Tom DO [address] [facility] 1 [place] [address] PCP - General Family Medicine 11/01/21 Dre Monte MD [address] [place] [address] Neurology 07/10/22 Director Of Neurology Relationship Specialty Start Date End Date Ramandeep Tom DO [address] [facility], [address] [place] [address] PCP - General 11/04/18 Ramandeep Tom DO [address] [facility], [address] [place] [address] PCP - MSSP ACO Attributed Provider 08/17/21 Director Of Neurology Relationship Specialty Start Date End Date Ramandeep Tom DO [address] [facility], [address] [place] [address] PCP - General 11/04/18 Ramandeep Tom DO [address] [facility], [address] [place] [address] PCP - MSSP ACO Attributed Provider 08/17/21 Director Of Neurology Relationship Specialty Start Date End Date Ramandeep Tom DO [address] [facility], [address] [place] [address] PCP - General 11/04/18 Ramandeep Tom DO [address] [facility], [address] [place] [address] PCP - MSSP ACO Attributed Provider 08/17/21 Director Of Neurology Relationship Specialty Start Date End Date Ramandeep Tom DO [address] [facility], [address] [place] [address] PCP - General 11/04/18 Ramandeep Tom DO [address] [facility], [address] [place] [address] PCP - MSSP ACO Attributed Provider 08/17/21 Director Of Neurology Relationship Specialty Start Date End Date Ramandeep Tom DO [address] [place] [address] PCP - MSSP ACO Attributed Provider 08/17/21 Michelle Menchaca MD [address] [facility], [address] [place] [address] PCP - General Family Medicine 08/06/24 Director Of Neurology Relationship Specialty Start Date End Date Ramandeep Tom DO [address] [place] [address] PCP - MSSP ACO Attributed Provider 08/17/21 Michelle Menchaca MD [address] [facility], [address] [place] [address] PCP - General Family Medicine 08/06/24 Director Of Neurology Relationship Specialty Start Date End Date Ramandeep Lobo DO [address] [place] [address] [address] [place] [address] PCP - General Family Medicine 11/01/21 Dre Monte MD [address] [address] Neurology 07/10/22 Director Of Neurology Relationship Specialty Start Date End Date Ramandeep Lobo DO [address] [facility] 1 [place] [address] PCP - General Family Medicine 11/01/21 Dre Monte MD [address] [place] [address] Neurology 07/10/22 Director Of Neurology Relationship Specialty Start Date End Date Dre Monte MD [address] [address] Neurology 07/10/22 Michelle Menchaca MD [address] [facility], [facility] 1 [place] [address] Family Medicine 11/04/24 Director Of Neurology Relationship Specialty Start Date End Date Ramandeep Tom DO [address] [facility] [address] [place] [address] PCP - MSSP ACO Attributed Provider 08/17/21 Michelle Menchaca MD [address] [facility], [facility] 1 [place], [place] [address] PCP - General Family Medicine 08/06/24 Goals (unrecognized section and content) Goals may be documented in a n alternate section FOR RECORDS PERTAINING TO PATIENTS WHO ARE OR HAVE BEEN ENROLLED IN A CHEMICAL DEPENDENCY/SUBSTANCEABUSE PROGRAM, SOME INFORMATION MAY BE OMITTED. This clinical summary was aggregated from multiple sources. Caution should be exercised in using it in the provision of clinical care. This summary normalizes information from multiple sources, and as a consequence, information in this document may materially change the coding, format and clinical context of patient data. In addition, data may be omitted in some cases. CLINICAL DECISIONS SHOULD BE BASED ON THE PRIMARY CLINICAL RECORDS. [facility] [employer] [facility]. provides no warranty or guarantee of the accuracy or completeness of information in this document.
--- NOTE | 2024-11-28 22:51 | EDS_ITS ---
HPI History of Present Illness Chief Complaint: Dislocation Informant: patient Narrative Narrative: Patient is a 84-year-old female with past medical history of neurofibromatosis. She states a few hours prior to arrival she was getting onto her horse when it bucked and she fell backwards landing on the mounting block. She denies striking her head or any loss of consciousness. She denies any history of bleeding disorder or blood thinner use. She states that she believes she landed on her right fourth finger and has concern that she may have fractured it and or dislocated it and secondary to this comes in for evaluation. She does state that she is right-hand dominant [facility] Medical History Edema of left lower extremity Neurofibromatosis UTI (urinary tract infection) Home Medications ?Medication ?Instructions ?Recorded ?Last Taken ?Type doxepin 100 mg capsule 150 mg PO QHS 11/27/16 Unkno wn History zolpidem 5 mg tablet 10 mg PO QHS PRN PRN Insomni a 11/27/16 Unknown History lamotrigine 25 mg tablet 75 mg PO QHS 01/10/19 Unknow n History selumetinib 25 mg capsule 25 cap PO BID 08/01/21 Unkno wn History (Koselugo) hydrocodone-acetaminophen 5-325mg 1 tab PO Q6H PRN PRN Pain 3 days 11/28/24 Unknown Rx 5mg-325mg #12 TABLETS Allergy/AdvReac Type Severity Reaction Status Date / Time No Known Allergies Allergy Verified 11/28/24 21:13 Family History no significant family his Social History Smoking Status: Never smoker ROS ROS ED Constitutional Constitutional ED: Denies chills or fever(s) Eyes Eyes: Denies blurry vision or change in vision ENT ENT ED: Denies sore throat Cardiovascular Cardiovascular: Reports other Details: Negative syncope ; Denies chest pain Respiratory/Chest Respiratory/Chest: Denies cough or dyspnea Gastrointestinal Gastrointestinal: Denies abdominal pain, diarrhea, nausea or vomiting Genitourinary Genitourinary ED: Denies hematuria Musculoskeletal Musculoskeletal: Reports back pain and other Details: Positive right hand/finger pain ; Denies neck pain Integumentary Denies rash Neurologic Neurologic: Denies headache(s), paresthesias or weakness Hematologic/Lymphatic Hematologic/Lymphatic: Denies easy bleeding or easy bruising EXAM Physical Exam Const Vital Signs: 11/28/24 21:13 Temperature 97.7 F L Temperature Source Temporal Pulse Rate 90 Respiratory Rate 16 Blood Pressure 132/88 H Blood Pressure Mean 102 Pulse Ox 100 Oxygen Delivery Method Room Air Positive well nourished and well developed General Appearance ED: well developed; Negative for pallor HEENT HEENT Narrative: Normocephalic atraumatic Eyes PERRL and EOMs intact bilaterally General Eye ED: Negative for scleral icterus Neck supple Neck Narrative: No bony deformity or step-off of the cervical spine no midline tenderness to palpation Chest Wall palpation of chest normal Resp normal respiratory effort and clear to auscultation bilaterally Cardio regular rate and regular rhythm GI Palpation: tender Back/Spine Back/Spine Narrative: No bony deformity or step-off of the thoracic or lumbar spine; no midline tenderness to palpation There is right paralumbar tenderness and spasm noted without overlying abrasions or ecchymosis. Pain does worsen with extension and rotation No saddle anesthesia. Negative straight leg raise. No clonus or Babinski. Patellar reflexes are plus 2 out of 4 bilaterally Extremity Extremity Narrative: Right upper extremity is neurovascularly intact; AIN/PIN are intact and normal. There is soft tissue swelling with slight deformity of of the distal phalanx of the right fourth finger. Active and passive range of motion is decreased secondary to pain but there is no signs of ligamentous or tendon injury. No subungual hematoma. Pelvis is stable there is no shortening or external rotation of either lower extremity Neuro oriented x3, CN's II-XII intact bilaterally and no sensory deficits noted Sensorium / Orientation: alert Psych mental status grossly normal Skin no rashes or lesions noted and no wounds General Skin Exam: Negative for jaundice or pallor MDM MDM MDM Narrative Medical decision making narrative: Patient reported a mechanical fall leading to injury of the right fourth finger/hand. She denies striking her head or any loss of consciousness nor is she on a blood thinner. We discussed the potential head and cervical spine CT based on her fall but as she did not strike her head and does not have neck pain or midline tenderness concern for traumatic subarachnoid or subdural hemorrhage or cervical compression fracture is low and there is no need to perform CT scans. She also has low back pain but there is no abrasions or ecchymosis she denies any hematuria and without midline pain concern for compression fracture is low as well so therefore there is no imaging ordered. X-ray of the hand was obtained secondary to concern for fracture versus dislocation. It did show fracture of the right fourth middle phalanx with extension into the joint. However she is closed and neurovascularly intact so therefore there is no need for emergent orthopedic consultation. The patient was placed in a middle finger brace for stabilization and can see orthopedics as an outpatient to discuss further care History & Record Review Discussion w/independent historian: Patient Radiography Diagnostic Testing: Clinical Impression(s) from Imaging Studies Hand X-Ray 11/28/24 21:22 IMPRESSION: 4th digit injury. Reading Location: [place] [address] X-ray of the right hand as interpreted by the emergency medicine physician reveals a comminuted fracture that extends into the joint space of the distal portion of the right fourth middle phalanx. Discharge Plan Triage Chief Complaint: Dislocation Other Complaint: Back ED Provider: Kartik Ha Dx/Rx/DC Orders Clinical Impression: Finger fracture, right, Neurofibromatosis Instructions: ED Fracture, Finger, Closed Prescriptions: New hydrocodone-acetaminophen 5-325 mg tablet 1 tab PO Q6H PRN PRN (Reason: Pain) 3 Days Qty: 12 0RF No Action doxepin 100 MG capsule 150 mg PO QHS zolpidem 5 MG tablet 10 mg PO QHS PRN PRN (Reason: Insomnia) lamotrigine 25 MG tablet 75 mg PO QHS Koselugo 25 mg capsule 25 cap PO BID Primary Care Provider: CANDICE MENCHACA Referrals: CANDICE MENCHACA [Other] Zak Arnett DO [Med Staff - Active Staff] - Activity Restrictions/Additional Instructions: Please wear your finger splint to stabilize your fracture. Follow-up with orthopedics to ensure there is no need for further intervention. Return to the ER should you have any further concerns Print Language: Barbadian Disposition Disposition: Home, Self Care Discharge Date/Time: 11/28/24 23:26
[2024-11-28] MEDS: HYDROcodone Bitartrate/Apap 5/325 Tablet PO (23:23)
[2024-11-28 23:25] VITALS: BP 115/60; PULSE 88; RESP 16; TEMP 36.6; O2SAT 98
== END 2024-11-28 23:26 | disposition home or self-care (01) ==
PROVIDERS: Emergency Provider Emergency Medicine; Visit Provider Emergency Medicine
DX: S62.622A Displaced fracture of middle phalanx of right middle finger, initial encounter for closed fracture (principal); Q85.00 Neurofibromatosis, unspecified; M54.50 Low back pain, unspecified; V80.010A Animal-rider injured by fall from or being thrown from horse in noncollision accident, initial encounter
CPT/HCPCS: 73130; 99283

== ENCOUNTER → 2024-12-17 | Outpatient (CLI) | payer MEDICARE, MEDICAID, SELFPAY | END | disposition home or self-care (01) | LOC: CT 18:52 | PROVIDERS: Referring Provider Physician Assistant Surgical; Visit Provider Physician Assistant Surgical | DX: M54.50 Low back pain, unspecified (principal); S20.212A Contusion of left front wall of thorax, initial encounter; S30.0XXA Contusion of lower back and pelvis, initial encounter | CPT/HCPCS: 72131; 72192 ==

== ENCOUNTER → 2024-12-21 | Outpatient (CLI) | payer MEDICARE, MEDICAID, SELFPAY ==
--- NOTE | 2024-12-21 11:09 | RAD_ITS ---
PROCEDURE: CHEST PA AND LATERAL 12/21/2024 REASON FOR EXAM: CHEST PAIN TECHNIQUE: CHEST PA AND LATERAL COMPARISON: None. RAD/Chest PA and Lateral IMPRESSION: Evaluation is limited by lack of a prior comparison study. Prominent soft tissue density seen of the superior mediastinum bilaterally, of uncertain chronicity or etiology. The midportion of the mediastinum is not show widening, in the ko appear norm al. The cardiac size is normal, as well. Lungs otherwise appear clear of acute disease. No pleural effusion or pneumothorax is noted. Mild thoracic spine degenerative changes are noted. Reading Location: [place] [address]
--- NOTE | 2024-12-21 11:09 | RAD_ITS ---
PROCEDURE: CHEST PA AND LATERAL 12/21/2024 REASON FOR EXAM: CHEST PAIN TECHNIQUE: CHEST PA AND LATERAL COMPARISON: None. RAD/Chest PA and Lateral IMPRESSION: Evaluation is limited by lack of a prior comparison study. Prominent soft tissue density seen of the superior mediastinum bilaterally, of uncertain chronicity or etiology. The midportion of the mediastinum is not show widening, in the ko appear norm al. The cardiac size is normal, as well. Lungs otherwise appear clear of acute disease. No pleural effusion or pneumothorax is noted. Mild thoracic spine degenerative changes are noted. Reading Location: [place] [address]
--- OUTSIDE RECORDS SUMMARY | 2024-12-21 18:33 | XMS RPT_ITS | CCD ---
Author Organization [facility] Care Team Providers Care Saddle Lining Stitcher Name Role Phone Rings, Rigo Unavailable Unavailable Rings, Rigo Unavailable Unavailable No Doctor Assigned, Nodr Unavailable Unavail able Van Nostran, Ramandeep Unavailable Unavailable Van Nostran, Ramandeep E Unavailable Unavailabl e Ismael Monzon Unavailable Unavailable Van Nostran, Ramandeep E Unavailable Unavailable Unavailable Garcia Rose Primary Care Provider Van Nostran DO, Ramandeep E Primary Care Provider Unavailable Unavailable Van Nostran DO, Ramandeep E Primary Care Provider Van Nostran DO, Ramandeep E Primary Care Provider VAN NOSTRAN, RAMANDEEP E Primary Care Unavailabl e LOBBOUS, DRE Referring Unavailable LOBBOUS, DRE Referring Unavailable VAN NOSTRAN, RAMANDEEP E Primary Care Unavailabl e Mell CALIXTO Dre Unavailable Care Physician, No Primary Primary Care Provider Unavailable Care Physician, No Primary Referring Provider Un available LUCHO Andrews Attending Provider [phone] VAN NOSTRAN, DO RAMANDEEP E Primary Care [...] NOSTRAN, RAMANDEEP E Primary Care Unavailabl e Van Nostran DO, Ramandeep E Unavailable Michelle Menchaca MD Primary Care Provider VAN NOSTRAN, RAMANDEEP E Primary Care Unavailabl e VAN NOSTRAN, RAMANDEEP E Referring Unavailabl e VAN NOSTRAN, RAMANDEEP E Primary Care Unavailabl e MICHELLE MENCHACA Referring Unavailable MICHELLE MENCHACA Primary Care Unavailable Vannostran Ramandeep DUNCAN Primary Care [facility] er Michelle Menchaca MD Unavailable LOBROSE, DRE Attending Unavailable LOBBOUS, DRE Referring Unavailable VANNOSTRAN, RAMANDEEPTEREZA MCDONALD Primary Care Unavai lable LOBBOUS, DRE Referring Unavailable VANNOSTRAN, RAMANDEEP TAMARA Primary Care Unavai lable LOBBOUS, DRE Referring Unavailable [facility] Care Unavai lable [facility]STR[facility], [facility] Primary Care UnaCANDIDO Miramontes Attending Unavailable VANNOSTRAN, [facility] Unavai lable LOBBOUS, DRE Referring Unavailable [facility], [facility] Unavai lable VAN NOSTRAN, RAMANDEEP Holt Attending Unavailabl e VAN NOSTRAN, RAMANDEEP Holt Primary Care Unavailabl e MICHELLE MENCHACA Attending Unavailable MICHELLE MENCHACA Primary Care Unavailable MICHELLE MENCHACA Attending Unavailable MICHELLE MENCHACA Primary Care Unavailable Dr. Kartik Ha DO Emergency Provider MICHELLE MENCHACA Primary Care Provider [phone] Care Physician, No Primary Primary Care Unava ilable BeatrizstRamandeep story Referring Unavailable VanNostjez, Ramandeep Attending Unavailable RONAL YUEN Primary Care Unavailable Kartik Ha Attending Unavailable RONAL YUEN Primary Care Unavailable Veronika Waldron Referring Unavailable Veronika Waldron Attending Unavailable Allergies Allergy Classification Reported Allergen(s) Allergy Type Date of Onset Reaction(s) Facility Anti-Epileptic Agents (2 sources) gabapentin Drug Allergy 2 Other: See Comments [facility] Work Phone: Opioid Agonists (4 sources) Methadone Drug Allergy 2 Mental Status Change [facility] Pollen (2 sources) Tree and shrub pollen Substance Allergy 2 Other: See Comments [facility] selumetinib (2 sources) selumetinib Drug Allergy 2 Other: See Comments [facility] (1 source) No Known Medication Allergies; Translations: [No Known Medication Allergies] Propensity to adverse reactions to drug (disorder) [facility] Repository (20 sources) gabapentin; Translations: [GABAPENTIN] Drug Allergy 2 Other: See Comments, [facility] Work Phone: (20 sources) Methadone; Translations: [METHADONE] Drug Allergy 2 Mental Status Change, Other [facility] Work Phone: (20 sources) selumetinib; Translations: [SELUMETINIB- TAMIN E TPGS] Drug Allergy 2 Other: See Comments, Other [facility] Work Phone: (20 sources) traMADol; Translations: [TRAMADOL] Drug Allergy 2 Mental Status Change, Unknown [facility] Work Phone: (20 sources) Tree and shrub pollen; Translations: [TREE AND SHRUB POLLEN] Drug Allergy 2 Other: See Comments, Other [facility] Work Phone: (20 sources) Venom-Wasp; Translations: [VENOM-WASP] Drug Allergy 2 Anaphylaxis [facility] Work Phone: (16 sources) selumetinib; Translations: [SELUMETINIB] Drug Allergy 2 Rash [facility] Work Phone: (10 sources) rizatriptan; Translations: [RIZATRIPTAN] Drug Allergy 4 [facility] (10 sources) SUMAtriptan; Translations: [SUMATRIPTAN] Drug Allergy 4 [facility] Work Phone: (7 sources) selumetinib Drug Allergy 2 Other, Other: See Comments [facility] Work Phone: Medications Current Medications Medication Drug Class(es) Dates Sig (Normalized) Sig (Original) acetaminophen 325 mg / HYDROcodone bitartrate 5 mg oral tablet (1 source) Opioid Agonist Start: 11-28-2024 take 1 tablet by mouth every six hours as needed for pain Hydrocodone-Aceta minophen 5-325 mg tablet Active 1 {tbl} PO EVERY 6 HOURS NEEDED as needed for Pain 12 3 0 November 28, 2024 Fracture of phalanx of finger of right hand Calcium Carbonate / vitamin D3 (9 sources) [...] Tom DO Start : 16-Jan-2021 Active Start: 11-27-2016 Doxepin 100 MG capsule Active 150 mg PO AT BEDTIME November 27, 2016 12:00am Start: 11-27-2016 take 150 mg by mouth at bedtim e Doxepin Active 150 MG PO AT BEDTIME November 27, 2016 12:00am Start: 07-24-2005 End: 11-27-2024 DOXEPIN 100 MG CAP Take one( 1) tablet daily at bedtime. 30 1 07/24/2005 11/08/2024 Discontinued Comment on above: Take one(1) tablet d aily at bedtime. DULoxetine 60 mg delayed release oral capsule (20 sources) Serotonin and Norepinephrine Reuptake Inhibitor Start: 023 End: 025 take 1 capsule by mouth at bedtime DULoxetine (Cymbalta) [address] capsule Indications: Neurofibromatosis (Multi) , Other chronic pain take 1 capsule by mouth at bedtime 90 capsule 1 10/09/2024 Active Start: 01-28-2022 End: 04-29-2022 take 1 capsule by mouth at bedtime DULoxetine (CYMBALTA) 60 mg capsule take 1 capsules by mouth at bedtime 30 capsule 0 04/29/2022 Active Start: 12-03-2021 take 1 capsule by mo uth at bedtime DULoxetine (CYMBALTA) 60 mg capsule take 1 capsule by mouth at bedtime 30 capsule 0 12/03/2021 Active Start: 08-22-2021 End: 06-25-2022 take 1 capsule by mouth at bedtime DULoxetine (CYMBALTA) 60 mg capsule take 1 capsule by mouth at bedtime 30 capsule 0 11/05/2021 12/03/2021 Discontinued Comment on above: Take 1 capsule by mo uth daily at bedtime. Take 60 mg by mouth once daily. TAKE 1 CAPSULE BY MO UTH DAILY AT BEDTIME take 1 capsule by mo uth at bedtime take 1 capsules by m out at bedtime erythromycin 0.005 mg/mg ophthalmic ointment (1 source) Macrolide, Macrolide Antimicrobial Start: End: erythromycin (ROMYCIN) 5 mg/gram (0.5 %) ophthalmic ointment Indications: Abrasion of left cornea, initial encounter Use 1 application in the left eye four times daily for 7 days. 3.5 g 01/16/2024 01/23/2024 Active fluconazole 150 mg oral tablet (1 source) Azole Antifungal Start: fluconazole (Diflucan) 150 mg tablet Indications: Yeast infection Take one tab at first sign of yeast infection, repeat 1 tab on d 3 if symptoms not improving 2 tablet 6 01/14/2023 Active iv contrast (will be provided with radiology test) (2 sources) Start: End: inject 1 dose intravenously once, then inject 1 dose intravenously once iv contrast (will be provided with radiology test) Indications: Nerve sheath tumor , Benign neoplasm of peripheral nerve sheath MRI C,T,L SPINE Inject, intravenously, once for 1 dose. No IV access, insert saline lock prior to the beginning of sedation, infusion, injection of imaging exam. Discontinue saline lock post exam. If Pt. has a central line or IVAD, may access for administration according to line specific nursing protocol. Once exam is complete flush line and de-access according to line specific nursing protocol in the MR contrast administration guidelines link. 1 Each 0 10/27/2023 10/28/2023 Active Start: 10-24-2023 End: 10-25-2023 inject 1 dose intravenously once iv contrast (will be provided with radiology test) Indications: Nerve sheath tumor MRI Brain Inject, intravenously, once for 1 dose.No IV access, insert saline lock prior to beginning of sedation, infusion, injection of imaging exam.Discontinue saline lock post exam. If Pt. has a central line or IVAD, may access for administration according to line specific nursing protocol.Once exam is complete flush line and de-access according to line specific nursing protocol in the MR contrast administration guidelines link 1 Each 0 10/24/2023 10/25/2023 Active lactobacillus acidophilus & bulgar (Lactinex) 1 million cell chewable tablet (9 sources) lactobacillus ac idophilus & bulgar (Lactinex) 1 million cell chewable tablet Chew and swallow 1 tablet 3 times daily (morning, midday, late afternoon). Active lactobacillus ac idophilus & bulgar (Lactinex) 1 million cell chewable tablet Chew 1 tablet 3 times daily (morning, midday, late afternoon). Active lactobacillus ac idophilus & bulgar (Lactinex) 1 million cell chewable tablet Chew 1 tablet 3 times a day with meals. 0 Active lamoTRIgine 25 mg oral tablet (20 sources) Mood Stabilizer, Anti-epileptic Agent Start: 10-15-2024 lamoTRIgine (LaMICt al) 25 mg tablet Indications: Neurofibromatosis (Multi) Week 1,2 and 3 Lamotrigine 25 mg , 2 pills( 50 mg) daily Week 4, 5 and 6 Lamotrigine 25 mg , 1 pill( 25 mg ) daily then stop 63 tablet 10/15/2024 Active Start: 12-01-2023 End: 10-15-2024 take 1 tablet by mouth once daily lamoTRIgine (LaMICtal) 150 mg tablet Indications: Anxiety Take 1 tablet (150 mg) by mouth once daily. 90 tablet 1 12/01/2023 10/15/2024 Discontinued (Therapy completed) Start: 11-22-2022 take 1 tablet by meliton th once daily lamoTRIgine (LaMICtal) 150 mg tablet Indications: Anxiety take 1 tablet by mouth once daily 90 tablet 1 11/22/2022 Active Start: 01-10-2019 take 3 tablets by mo [facility] at bedtime Lamotrigine 25 MG tablet Active 75 mg PO AT BEDTIME January 10, 2019 12:00am Start: 01-10-2019 take 75 mg by mouth at bedtime Lamotrigine Active 75 MG PO AT BEDTIME January 10, 2019 12:00am Start: 01-22-2013 End: 11-08-2024 take 0.5 tablet by mouth once daily lamoTRIgine 150 mg tablet Take 0.5 tablets by mouth once daily. 0 01/22/2013 11/08/2024 Discontinued take 1 tablet by meliton th once daily lamoTRIgine (LaMICtal) 150 mg tablet Take 1 tablet (150 mg) by mouth once daily. 0 Active Comment on above: Take 0.5 tablets by mouth once daily. perflutren lipid microspheres 1.3 mL in NaCl (PF) 0.9% 10 mL injection (DEFINITY) (6 sources) Start: 05-24-19 End: 08-24-19 perflutren lipid microspheres 1.3 mL in NaCl (PF) 0.9% 10 mL injection (DEFINITY) rizatriptan 10 mg oral tablet (6 sources) Serotonin-1b and Serotonin-1d Receptor Agonist Start: 10-23-19 End: 01-21-20 take 1 tablet by mouth every two hours as needed for headache rizatriptan (MAXALT) 10 mg tablet Take 1 tablet (10 mg) by mouth as needed for migraine headache (see administration instructions). May repeat dose after 2 hours if needed. Maximum daily dose is 30 mg per day. 12 tablet 2 10/23/2023 01/21/2024 Active selumetinib 25 mg oral capsule (20 sources) Start: 01-02-20 End: 03-13-20 22 take 1 capsule by mouth twice daily Selumetinib (Koselugo) 25 mg capsule Active 25 NMA PO TWICE A DAY August 01, 2021 12:00am Comment on above: 50 mg. 125 ml sodium chloride 9 mg/ml prefilled syringe (12 sources) Start: 05-23-19 End: 08-24-19 sodium chloride 0.9 % (flush) 10 mL (BD POSIFLUSH) tetracaine hydrochloride 5 mg/ml ophthalmic solution (1 source) Kalani Local Anesthetic Start: 01-16-20 End: 01-17-20 tetracaine (PF) 0.5 % 1 Drop (OPTICAINE) valACYclovir 1000 mg oral tablet (1 source) Herpesvirus Nucleoside Analog DNA Polymerase Inhibitor, Herpes Simplex Virus Nucleoside Analog DNA Polymerase Inhibitor, Herpes Zoster Virus Nucleoside Analog DNA Polymerase Inhibitor Start: 02-03-20 24 End: 02-17-20 24 take 2 tablets by mouth twice daily valACYclovir (Valtrex) 1 gram tablet Indications: Recurrent cold sores Take 2 tablets (2,000 mg) by mouth 2 times a day for 14 days. 8 tablet 6 02/03/2024 02/17/2024 Active zolpidem tartrate 10 mg oral tablet (20 sources) gamma-Aminobutyric Acid-ergic Agonist Start: 01-05-20 take 0.75 tablet by mouth at bedtime zolpidem (Ambien) 10 mg tablet Take by mouth at bedtime. TAKE 0.75 TABLET Bedtime 0 01/04/2021 Active Start: 12-31-2016 End: 10-15-2024 take 1 tablet by mouth once daily at bedtime zolpidem (Ambien) 10 mg tablet Indications: Insomnia, unspecified type Take 1 tablet (10 mg) by mouth once daily at bedtime. 90 tablet 10/15/2024 Active Start: 11-27-2016 take 2 tablets by mo [facility] at bedtime as needed Zolpidem 5 MG tablet Active 10 mg PO AT BEDTIME NEEDED as needed for Insomnia November 27, 2016 12:00am Start: 11-27-2016 take 10 mg by mouth at bedtime as needed Zolpidem Active 10 MG PO AT BEDTIME NEEDED November 27, 2016 12:00am Comment on above: Take 10 mg by mouth daily at bedtime. Completed/Discontinued Medications Medication Drug Class(es) Dates Sig (Normalized) Sig (Original) acetaminophen 300 mg / codeine phosphate 60 mg oral tablet (20 sources) Opioid Agonist Start: 12-14-2020 End: 07-29-2022 take 1 tablet by mouth twice daily for pain acetaminophen-codei ne (Tylenol w/ Codeine #4) 300-60 mg tablet Take 1 tablet by mouth. twice a day if needed for pain 0 12/14/2020 07/29/2022 Discontinued (Therapy completed) End: 06-25-2022 take 1 tablet by mouth every four hours as needed acetaminophen-codeine 300-60 mg per tablet Take 1 tablet by mouth every 4 hours as needed. 0 06/25/2022 Discontinued Comment on above: Take 1 tablet by meliton every 4 hours as needed. amitriptyline hydrochloride 25 mg oral tablet (9 sources) Tricyclic Antidepressant Start: End: take 1 tablet by mouth at bedtime amitriptyline (ELAVIL) 25 mg tablet take 1 tablet by mouth at bedtime 30 tablet 0 04/05/2022 05/15/2022 Discontinued (Other) Comment on above: Take 1 tablet by meliton th daily at bedtime. take 1 tablet by meliton th at bedtime baclofen 5 mg oral tablet (14 sources) gamma-Aminobutyric Acid-ergic Agonist Start: 024 End: 025 take 1.5 tablets by mouth three times daily as needed for pain baclofen 5 mg tablet Indications: Spasticity , Chronic pain syndrome , Neurofibromatosis 2 (HCC) Take 1.5 tablets by mouth three times a day as needed (muscle spasms or nerve pain). 120 tablet 11/12/2023 11/08/2024 Discontinued Start: 11-12-2023 End: 10-15-2024 take 7.5 mg by mouth every eight hours as needed baclofen (Lioresal) 5 mg tablet Take 1.5 tablets (7.5 mg) by mouth every 8 hours if needed. 11/12/2023 10/15/2024 Discontinued (Therapy completed) Start: 10-23-2023 End: 04-20-2024 take 1 tablet by mouth every eight hours as needed baclofen 5 mg tablet Take 1 tablet by mouth three times a day as needed (muscle spasms or nerve pain). 90 tablet 5 10/23/2023 11/12/2023 Discontinued benzonatate 100 mg oral capsule (10 sources) Non-narcotic Antitussive Start: 11-03-2018 End: 03-13-2022 benzonatate (TESSALON PERLE) 100 mg capsule Take 1-2 capsules tid prn 30 capsule 0 11/03/2018 03/13/2022 Discontinued (Course of therapy completed) Comment on above: Take 1-2 capsules ti d prn cyclobenzaprine hydrochloride 10 mg oral tablet (1 source) Muscle Relaxant Start: 12-22-2019 take 1 tablet by mouth three times daily Cyclobenzaprine HCl - 10 MG Oral Tablet TAKE 1 TABLET 3 TIMES DAILY. Quantity: 15 Refills: 0 Ismael Monzon MD Start : 22-Dec-2019 Active dexamethasone phosphate 1 mg/ml ophthalmic solution (5 sources) Corticosteroid Start: 01-21-2024 End: 10-15-2024 take 1 drop(s) into the eye(s) four times daily dexAMETHasone (Decadron) 0.1 % ophthalmic solution instill 1 drop into left eye four times a day 01/21/2024 10/15/2024 Discontinued (Therapy completed) Disability Placard (20 sources) Start: 03-30-2019 Disability Placard 5 years Quantity: 1 Refills: 0 Ordered: 30-Mar-2019 Ramandeep Tom DO Start : 30-Mar-2019 Active Start: 03-30-2019 Disability Ashish card 5 years Quantity: 1 Refills: 0 Ramandeep Tom DO Start : 30-Mar-2019 Active doxycycline monohydrate 100 mg oral tablet (20 sources) Tetracycline-class Drug Start: 02-08-2021 End: 07-29-2022 take 1 tablet by mouth twice daily doxycycline (Adoxa) 100 mg tablet Take 1 tablet (100 mg) by mouth. twice a day 0 02/08/2021 07/29/2022 Discontinued (Therapy completed) Comment on above: Take 100 mg by mouth twice daily. Fqi-Gc-Axzdbuxo 0.18/0.215/0.25 MG-25 MCG Oral Tablet (12 sources) Progestin, Estrogen Start: 11-10-2019 take 1 tablet by mouth once daily Iey-Rn-Pgsnujea 0.18/0.215/0.25 MG-25 MCG Oral Tablet Take 1 tablet daily Quantity: 1 Refills: 3 Ramandeep Tom DO Start : 10-Nov-2019 Active 28 Tablet Pack Start: 08-11-2019 End: 03-13-2022 take 1 tablet by mouth once daily Norgestimate-Ethinyl Estradiol 0.18/0.215/0.25 mg-35 mcg (28) take 1 tablet by mouth once daily 84 tablet 0 08/11/2019 03/13/2022 Discontinued (Course of therapy completed) Start: 08-11-2019 take 1 tablet by meliton th once daily Norgestimate-Ethinyl Estradiol 0.18/0.215/0.25 mg-35 mcg (28) take 1 tablet by mouth once daily 84 tablet 0 08/11/2019 Active Comment on above: take 1 tablet by meliton th once daily fluticasone propionate 0.05 mg/actuat metered dose nasal spray (5 sources) Corticosteroid Start: 05-14-20 End: 10-23-19 take 2 spray(s) by mouth once daily fluticasone (FLONASE) 50 mcg/actuation nasal spray Use 2 Sprays in each nostril once daily. Rinse mouth after use. 1 Each 0 05/14/2023 10/23/2023 Discontinued 12 hr guaiFENesin 600 mg extended release oral tablet (10 sources) Start: 11-04-19 End: 03-13-20 take 2 tablets by mouth twice daily guaiFENesin (MUCINEX) 600 mg 12 hr tablet Take 2 tablets by mouth twice daily. 24 tablet 0 11/03/2018 03/13/2022 Discontinued (Course of therapy completed) Comment on above: Take 2 tablets by [facility] twice daily. ketoconazole 20 mg/ml topical cream (14 sources) Azole Antifungal Start: 09-24-19 End: 03-13-20 ketoconazole (NIZORAL) 2 % cream 30 g q 12 HR. 0 09/23/2018 03/13/2022 Discontinued (Course of therapy completed) Start: 09-23-2018 Ketoconazole 2 % External Cream APPLY A THIN LAYER TO AFFECTED AREA(S) TWICE DAILY. Quantity: 1 Refills: 2 Ramandeep Tom DO Start : 23-Sep-2018 Active 30 GM Tube Comment on above: 30 g q 12 HR. LORazepam 0.5 mg oral tablet (20 sources) Benzodiazepine Start: 04-16-2021 End: 07-29-2022 LORazepam (Ativan) 0.5 mg tablet LORazepam 0.5 MG Oral Tablet Quantity: 60 Refills: 0 Start : 16-Apr-2021 Active 0 04/16/2021 07/29/2022 Discontinued (Therapy completed) Start: 04-16-2021 End: 06-25-2022 take 1-2 tablets by mouth every eight hours for anxiety LORazepam (ATIVAN) 0.5 mg take 1 TO 2 tablets by mouth every 8 hours if needed for ANXIETY ATTACKS (30 DAY SUPPLY) 0 04/16/2021 06/25/2022 Discontinued Start: 04-16-2021 LORazepam 0.5 MG Oral Tablet Quantity: 60 Refills: 0 Ordered: 03-Aug-2021 DO Start : 16-Apr-2021 Active Comment on above: take 1 TO 2 tablets by mouth every 8 hours if needed for ANXIETY ATTACKS (30 DAY SUPPLY) methylPREDNISolone 4 MG Oral Tablet Therapy Pack (3 sources) Start: 2020 methylPREDNISolone 4 MG Oral Tablet Therapy Pack use as directed FOLLOW DIRECTIONS ON BACK OF FOIL PACK Quantity: 21 Refills: 0 Ordered: 20-Mar-2021 DO Start : 19-Mar-2021 Active metroNIDAZOLE 500 mg oral tablet (17 sources) Nitroimidazole Antimicrobial Start: 2021 take 1 tablet by mouth twice daily metroNIDAZOLE 500 MG Oral Tablet TAKE 1 TABLET TWICE DAILY UNTIL FINISHED. Quantity: 14 Refills: 1 Ordered: 04-Nov-2021 Jordan Ramandeep Melara DO Start : 04-Nov-2021 Active nitrofurantoin, macrocrystals 25 mg / nitrofurantoin, monohydrate 75 mg oral capsule (6 sources) Nitrofuran Antibacterial Start: 2023 End: 2023 nitrofurantoin, macrocrystal-monohydrat e, (Macrobid) 100 mg capsule Indications: Recurrent urinary tract infection Take 1 cap before or after intercourse 30 capsule 07/17/2023 02/03/2024 Discontinued (Med List Cleanup) Start: 01-14-2023 nitrofurantoin , macrocrystal-monohydrate, (Macrobid) 100 mg capsule Indications: Recurrent urinary tract infection Take 1 cap before or after intercourse 30 capsule 3 01/14/2023 Active Start: 12-17-2022 End: 12-22-2022 take 1 capsule by mouth every twelve hours at mealtime Nitrofurantoin Monohyd/M-Cryst (Macrobid ) 100 mg capsule Discontinued 100 mg PO Q12H 10 5 0 December 17, 2022 12:00am December 21, 2022 12:00am December 22, 2022 12:03am must administer with a meal/food Start: 11-12-2022 End: 11-17-2022 take 1 capsule by mouth every twelve hours at mealtime Nitrofurantoin Monohyd/M-Cryst (Macrobid ) 100 mg capsule Discontinued 100 mg PO Q12H 10 5 0 November 12, 2022 12:00am November 16, 2022 12:00am November 17, 2022 12:04am must administer with a meal/food nystatin [id number] unt/ml oral suspension (7 sources) Polyene Antifungal Start: 11-08-2021 End: 07-29-2022 take 5 mL by mouth three times daily nystatin (Mycostatin) 100,000 unit/mL suspension Take by mouth. SWISH AND SWALLOW 5 ML 3 TIMES DAILY 0 11/08/2021 07/29/2022 Discontinued (Therapy completed) Start: 11-08-2021 take 5 mL by mouth t hree times daily Nystatin [id number] UNIT/ML Mouth/Throat Suspension SWISH AND SWALLOW 5 ML 3 TIMES DAILY Quantity: 75 Refills: 1 Ordered: 08-Nov-2021 Jordan Melara DO Ramandeep Start : 08-Nov-2021 Active predniSONE 20 mg oral tablet (1 source) Start: 12-22-2019 take 2 tablets by mouth once daily at mealtime predniSONE 20 MG Oral Tablet 2 tablets daily with food for 5 days. Dispensed 10 tablets. Quantity: 10 Refills: 0 Ismael Monzon MD Start : 22-Dec-2019 Active triamcinolone acetonide 5 mg/ml topical cream (10 sources) Corticosteroid Start: 04-06-2021 End: 03-13-2022 triamcinolone acetonide (KENALOG) 0.5 % cream Apply to affected area twice daily. APPLY TO AFFECTED AREA 0 04/06/2021 03/13/2022 Discontinued (Course of therapy completed) Comment on above: Apply to affected ar ea twice daily. APPLY TO AFFECTED AREA Problems Active Problems Problem Classification Problem Date Documented Da te Episodic/Chronic Abdominal pain (9 sources) Right upper quadrant pain; Translations: [Right upper quadrant pain] Onset: 5 10-15-2024 Episodic Acquired foot deformities (1 source) Right foot drop; Translations: [Foot drop, right foot] 12-15-2023 Episodic Anxiety disorders (20 sources) Anxiety; Translations: [Anxiety state, unspecified] Onset: 3 06-30-2022 Chronic Disorders of lipid metabolism (13 sources) Raised low density lipoprotein cholesterol; Translations: [Pure hypercholesterolemia, unspecified] Onset: 4 08-19-2023 Chronic Esophageal disorders (3 sources) Zenker's diverticulum; Translations: [Diverticulum of esophagus, acquired] Episodic Fracture of upper limb (1 source) Fracture of unspecified phalanx of unspecified finger, initial encounter for closed fracture; Translations: [Fracture of phalanx of finger of right hand] 11-28-2024 Episodic Genitourinary symptoms and ill-defined conditions (1 source) Urinary incontinence; Translations: [Unspecified urinary incontinence] 10-27-2023 Chronic Immunizations and screening for infectious disease (20 sources) Patient encounter status; Translations: [Other specified vaccination] 01-14-2023 Episodic Neoplasms of unspecified nature or uncertain behavior (18 sources) Neoplasm of nerve sheath origin; Translations: [Neoplasm of unspecified behavior of bone, soft tissue, and skin] Onset: 2 Episodic Nervous system congenital anomalies (20 sources) Neurofibromatosis syndrome; Translations: [Neurofibromatosis, unspecified] Onset: 3 09-12-2003 Chronic Other and ill-defined heart disease (2 sources) Heart disease; Translations: [Other heart disorders in diseases classified elsewhere] Chronic Other and unspecified benign neoplasm (18 sources) Benign neoplasm of nerve sheath origin; Translations: [Benign neoplasm of peripheral nerves and autonomic nervous system, unspecified] Episodic Other and unspecified benign neoplasm (2 sources) Benign neoplasm of peripheral nerves and autonomic nervous system, unspecified; Translations: [Benign neoplasm of peripheral nerve sheath] Onset: 2 Episodic Other and unspecified benign neoplasm (1 source) Benign neoplasm of spinal cord; Translations: [Benign neoplasm of spinal cord] 12-15-2023 Episodic Other connective tissue disease (2 sources) Neuropathic pain; Translations: [Neuralgia and neuritis, unspecified] Episodic Other connective tissue disease (1 source) Spasticity; Translations: [Cramp and spasm] 11-12-2023 Episodic Other connective tissue disease (1 source) Myofascial pain; Translations: [Myalgia, other site] 12-15-2023 Episodic Other connective tissue disease (1 source) Spasm; Translations: [Cramp and spasm] 12-15-2023 Episodic Other diseases of veins and lymphatics (20 sources) Lymphedema; Translations: [Other lymphedema] Onset: 3 06-30-2022 Chronic Other diseases of veins and lymphatics (2 sources) Lymphedema, not elsewhere classified; Translations: [Lymphedema, not elsewhere classified] Onset: 3 Chronic Other eye disorders (14 sources) Posterior vitreous detachment; Translations: [Vitreous degeneration] Chronic Other eye disorders (10 sources) Posterior vitreous detachment of right eye; Translations: [Vitreous degeneration, right eye] Onset: 3 06-30-2022 Chronic Other eye disorders (1 source) Disorder of eye; Translations: [Other specified disorders of eye and adnexa] 01-16-2024 Episodic Other gastrointestinal disorders (1 source) Constipation; Translations: [Constipation, unspecified] 10-15-2024 Episodic Other gastrointestinal disorders (2 sources) Constipation, unspecified; Translations: [Constipation, unspecified] Onset: 5 Episodic Other hereditary and degenerative nervous system conditions (1 source) Isolated cervical dystonia; Translations: [Spasmodic torticollis] 12-15-2023 Chronic Other injuries and conditions due to external causes (1 source) Encounter for examination and observation following other accident; Translations: [Encounter for examination and observation following other accident] Onset: 5 Episodic Other lower respiratory disease (1 source) Dyspnea; Translations: [Shortness of breath] Episodic Other nervous system disorders (20 sources) Chronic intractable pain; Translations: [Other chronic pain] Onset: 3 06-30-2022 Chronic Other nervous system disorders (20 sources) Idiopathic peripheral neuropathy; Translations: [Unspecified hereditary and idiopathic peripheral neuropathy] Onset: 3 06-30-2022 Chronic Other nervous system disorders (5 sources) Pain due to neoplastic disease; Translations: [Neoplasm related pain (acute) (chronic)] Chronic Other nervous system disorders (1 source) Chronic pain syndrome; Translations: [Chronic pain syndrome] 11-12-2023 Chronic Other screening for suspected conditions (not mental disorders or infectious disease) (1 source) Radiology result abnormal; Translations: [Abnormal findings on diagnostic imaging of other specified body structures] Chronic Residual codes; unclassified (4 sources) Chronic intractable pain; Translations: [Chronic intractable pain] Episodic Residual codes; unclassified (16 sources) Body mass index 20-24 - normal; Translations: [Body Mass Index between 19-24, adult] 08-19-2023 Episodic Residual codes; unclassified (13 sources) Edema of left lower limb; Translations: [Localized edema] Onset: 3 Resolved: 4 03-19-2021 Episodic Residual codes; unclassified (2 sources) Postmenopausal state; Translations: [Asymptomatic menopausal state] 08-19-2023 Episodic Superficial injury; contusion (1 source) Abrasion of left cornea; Translations: [Injury of conjunctiva and corneal abrasion without foreign body, left eye, initial encounter] 01-16-2024 Episodic Unclassified (13 sources) Patient encounter status; Translations: [Medication management] 03-16-2024 Unclassified (1 source) Established Patient Onset: 5 Unclassified (1 source) Low back pain, unspecified; Translations: [Low back pain, unspecified] Onset: 5 Urinary tract infections (13 sources) Urinary tract infectious disease; Translations: [Urinary tract infection, site not specified] Onset: 3 11-12-2022 Episodic Past or Other Problems Problem Classification Problem Date Documented Da te Episodic/Chronic Cancer of brain and nervous system (12 sources) Glioblastoma multiforme ; Translations: [Malignant neoplasm of brain, unspecified] Onset: 06-30-2022 Resolved: 01-14-2023 01-14-2023 Chronic Complications of surgical procedures or medical care (20 sources) Drug therapy finding; Translations: [Unspecified adverse effect of unspecified drug, medicinal and biological substance] Onset: 06-30-2022 Resolved: 07-29-2022 07-29-2022 Episodic Headache; including migraine (8 sources) Cervicogenic headache; Translations: [Cervicogenic headache] Onset: 02-03-2024 02-03-2024 Episodic Inflammatory diseases of female pelvic organs (17 sources) Bacterial vaginosis; Translations: [Vaginitis and vulvovaginitis, unspecified] Onset: 06-30-2022 Resolved: 07-29-2022 07-29-2022 Episodic Menopausal disorders (20 sources) Postmenopausal bleeding; Translations: [Postmenopausal bleeding] Onset: 05-06-2022 Resolved: 07-29-2022 Chronic Mood disorders (10 sources) Mood disorders Onset: 01-14-2023 Resolved: 11-17-2024 01-14-2023 Mycoses (17 sources) Candidiasis of mouth; Translations: [Candidiasis of mouth] Onset: 06-30-2022 Resolved: 07-29-2022 01-14-2023 Episodic Other and unspecified benign neoplasm (20 sources) Neurofibroma; Translations: [Benign neoplasm of peripheral nerves and autonomic nervous system, unspecified] Onset: 07-05-2021 07-05-2021 Episodic Other bone disease and musculoskeletal deformities (17 sources) Osteopenia; Translations: [Disorder of bone and cartilage, unspecified] Onset: 06-30-2022 07-29-2022 Episodic Other bone disease and musculoskeletal deformities (3 sources) Other specified disorders of bone density and structure, right lower leg; Translations: [Oth disrd of bone density and structure, right lower leg] Onset: 02-25-2022 Episodic Other bone disease and musculoskeletal deformities (3 sources) Other specified disorders of bone density and structure, left lower leg; Translations: [Oth disrd of bone density and structure, left lower leg] Onset: 02-25-2022 Episodic Other bone disease and musculoskeletal deformities (1 source) Other specified disorders of bone density and structure, left thigh; Translations: [Oth disrd of bone density and structure, left thigh] Onset: 02-25-2022 Episodic Other bone disease and musculoskeletal deformities (2 sources) Other specified disorders of bone density and structure, multiple sites; Translations: [Other specified disorders of bone density and structure, multiple sites] Onset: 07-29-2022 Episodic Other connective tissue disease (20 sources) Swelling of limb; Translations: [Swelling of limb] Onset: 06-30-2022 Resolved: 07-29-2022 07-29-2022 Episodic Other connective tissue disease (20 sources) Contracture of Achilles tendon; Translations: [Short Achilles tendon (acquired), unspecified ankle] Onset: 05-16-2009 05-16-2009 Episodic Other female genital disorders (20 sources) Vaginal discharge; Translations: [Leukorrhea, not specified as infective] Onset: 06-30-2022 Resolved: 07-29-2022 07-29-2022 Episodic Other female genital disorders (10 sources) History of recurrent vaginal discharge; Translations: [Personal history of other genital system and obstetric disorders] Resolved: 10-16-2021 Episodic Other gastrointestinal disorders (20 sources) Dysphagia; Translations: [Dysphagia, unspecified] Onset: 01-01-2023 01-01-2023 Episodic Other inflammatory condition of skin (14 sources) Seborrheic dermatitis; Translations: [Seborrheic dermatitis, unspecified] Onset: 01-01-2023 01-01-2023 Episodic Other screening for suspected conditions (not mental disorders or infectious disease) (20 sources) Cancer cervix screening status; Translations: [Screening for malignant neoplasms of cervix] Onset: 09-02-2022 Episodic Other skin disorders (20 sources) Acne; Translations: [Other acne] Onset: 03-18-2005 Resolved: 08-19-2023 03-18-2005 Episodic Residual codes; unclassified (20 sources) Insomnia; Translations: [Insomnia, unspecified] Onset: 06-30-2022 01-14-2023 Episodic Residual codes; unclassified (2 sources) Asymptomatic menopausal state; Translations: [Asymptomatic menopausal state] Onset: 03-01-2024 Episodic Residual codes; unclassified (4 sources) Insomnia, unspecified; Translations: [Insomnia, unspecified] Onset: 02-03-2024 Episodic Spondylosis; intervertebral disc disorders; other back problems (20 sources) Torticollis; Translations: [Torticollis, unspecified] Onset: 01-01-2023 01-01-2023 Episodic Unclassified (10 sources) Onset: 07-29-2022 Resolved: 08-19-2023 07-29-2022 Viral infection (9 sources) Recurrent herpes simplex labialis; Translations: [Herpesviral vesicular dermatitis] Onset: 02-03-2024 02-03-2024 Episodic NEGATED: Highlighted row has not occurred!Residual codes; unclassified (17 sources) Disease Episodic Results Test Name Value Interpretation Reference Range Facility Emergency Department Summary on 11-28-2024 Emergency Department Summary [facility] Medical Records Department [address] [place] [address] Emergency Department Summary 11/28/24 MR#: [id number] Acct: [id number] Name: SANDRA SANCHEZ Rep #: [id number] : 1970 54 From: Kartik Ha DO PCP: MICHELLE MENCHACA Status:DEP ER Location: ED HPI History of Present Illness Chief Complaint: Dislocation Informant: patient Narrative Narrative: Patient is a 84-year-old female with past medical history of neurofibromatosis. She states a few hours prior to arrival she was getting onto her horse when it bucked and she fell backwards landing on the mounting block. She denies striking her head or any loss of consciousness. She denies any history of bleeding disorder or blood thinner use. She states that she believes she landed on her right fourth finger and has concern that she may have fractured it and or dislocated it and secondary to this comes in for evaluation. She does state that she is right-hand dominant [facility] Medical History Edema of left lower extremity Neurofibromatosis UTI (urinary tract infection) Home Medications ???Medication ???Instructions ???Recorded ???Last Taken ???Type doxepin 100 mg capsule 150 mg PO QHS 11/27/16 Unknown His tory zolpidem 5 mg tablet 10 mg PO QHS PRN PRN Insomnia 11/16 07/05 Unknown History lamotrigine 25 mg tablet 75 mg PO QHS 01/10/19 Unknown Hist ory selumetinib 25 mg capsule 25 cap PO BID 08/01/21 Unknown His tory (Koselugo) hydrocodone-acetaminophen 5-325mg 1 tab PO Q6H PRN PRN Pain 3 days 11/28/24 Unknown Rx 5mg-325mg #12 TABLETS Allergy/AdvReac Type Severity Reaction Status Date / Time No Known Allergies Allergy Verified 11/28/24 21:13 Family History no significant family his Social History Smoking Status: Never smoker ROS ROS ED Constitutional Constitutional ED: Denies chills or fever(s) Eyes Eyes: Denies blurry vision or change in vision ENT ENT ED: Denies sore throat Cardiovascular Cardiovascular: Reports other Details: Negative syncope ; Denies chest pain Respiratory/Chest Respiratory/Chest: Denies cough or dyspnea Gastrointestinal Gastrointestinal: Denies abdominal pain, diarrhea, nausea or vomiting Genitourinary Genitourinary ED: Denies hematuria Musculoskeletal Musculoskeletal: Reports back pain and other Details: Positive right hand/finger pain ; Denies neck pain Integumentary Denies rash Neurologic Neurologic: Denies headache(s), paresthesias or weakness Hematologic/Lymphatic Hematologic/Lymphatic: Denies easy bleeding or easy bruising EXAM Physical Exam Const Vital Signs: 11/28/24 21:13 Temperature 97.7 F L Temperature Source Temporal Pulse Rate 90 Respiratory Rate 16 Blood Pressure 132/88 H Blood Pressure Mean 102 Pulse Ox 100 Oxygen Delivery Method Room Air Positive well nourished and well developed General Appearance ED: well developed; Negative for pallor HEENT HEENT Narrative: Normocephalic atraumatic Eyes PERRL and EOMs intact bilaterally General Eye ED: Negative for scleral icterus Neck supple Neck Narrative: No bony deformity or step-off of the cervical spine no midline tenderness to palpation Chest Wall palpation of chest normal Resp normal respiratory effort and clear to auscultation bilaterally Cardio regular rate and regular rhythm GI Palpation: tender Back/Spine Back/Spine Narrative: No bony deformity or step-off of the thoracic or lumbar spine; no midline tenderness to palpation There is right paralumbar tenderness and spasm noted without overlying abrasions or ecchymosis. Pain does worsen with extension and rotation No saddle anesthesia. Negative straight leg raise. No clonus or Babinski. Patellar reflexes are plus 2 out of 4 bilaterally Extremity Extremity Narrative: Right upper extremity is neurovascularly intact; AIN/PIN are intact and normal. There is soft tissue swelling with slight deformity of of the distal phalanx of the right fourth finger. Active and passive range of motion is decreased secondary to pain but there is no signs of ligamentous or tendon injury. No subungual hematoma. Pelvis is stable there is no shortening or external rotation of either lower extremity Neuro oriented x3, CN's II-XII intact bilaterally and no sensory deficits noted Sensorium / Orientation: alert Psych mental status grossly normal Skin no rashes or lesions noted and no wounds General Skin Exam: Negative for jaundice or pallor MDM MDM MDM Narrative Medical decision making narrative: Patient reported a mechanical fall leading to injury of the right fourth finger/hand. She denies striking her head or any loss of c (more content not included)... Normal [facility] Hand Min 3 Viewson 5 Hand Min 3 Views [facility] Imaging Services [address] [place], [place] [id number] Hand Min 3 Views MR#: [id number] Acct: [id number] Name: SANDRA SANCHEZ Rep #: [id number] : 1970 F 54 From: Magdiel Jimenez MD PCP: Care Physician,No Primary Status: PRE ER Study: Hand Min 3 Views Date of Exam: 11/28/24 Exam# [id number] Ordering Dr: Provider,Ed P. PROCEDURE: HAND MIN 3 VIEWS 11/28/2024 REASON FOR EXAM: FINGER PAIN TECHNIQUE: HAND MIN 3 VIEWS COMPARISON: No FINDINGS: Acute, minimally displaced fracture, 4th digit middle phalangeal head, intra-articular extension. No dislocation. RAD/Hand Min 3 Views IMPRESSION: 4th digit injury. Reading Location: [place] [address] CC: ED PHYSICIAN PROVIDER; No Primary Care Physician Collective Bargaining Specialist: Signed Normal [facility] CNOVon 11-04-2024 CNOV Office Visit (NSCAMN ) ----- SANDRA SANCHEZ ([id number]) 1970 F Date Time Provider Department 11/04/24 3:00 PM DRE MONTE NSCAMN During your visit today, we recorded the following information about you: Temperature Pulse Respiration Blood pressure 98.7 degrees 72/minute 17/minute 115/75 Weight 65.9 kg Morelia Mcdonough OCCA 11/08/2024 9:44 PM Signed Additional intake questions: Has the patient had fever, nausea, vomiting, diarrhea, constipation, fatigue for > 1 week? No Does the patient have a decreased appetite? No Does patient want to see a [employer] Custodian? 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 Pain with resistance in both wri (more content not included)... [facility] MR Cervical spine WO and W c devante Issac 10-26-2024 * * *Final Report* * * DATE OF EXAM: Oct 26 2024 9:09AM [facility] 0298 - MRI CERVICAL SPINE WO/W [...] and iliac wings are within normal limits. DIVISION OF RADIOLOGY Provider, [facility] - 10/26/2024 * * *Final Report* * * DATE OF EXAM: Oct 26 2024 9:09AM [facility] 0298 - MRI CERVICAL SPINE WO/W [...] IMPRESSION: Innumerable para (more content not included)... [facility] MR Lumbar spine WO and W con trast Issac 10-26-2024 * * *Final Report* * * DATE OF EXAM: Oct 26 2024 9:09AM [facility] 0304 - MRI LUMBAR SPINE WO/W [...] and iliac wings are within normal limits. DIVISION OF RADIOLOGY Provider, [facility] - 10/26/2024 * * *Final Report* * * DATE OF EXAM: Oct 26 2024 9:09AM [facility] 0304 - MRI LUMBAR SPINE WO/W [...] are within normal limits. IMPRESSION IMPRESSION: Innumerable parasp (more content not included)... [facility] MR Thoracic spine WO and W c ontrast Issac 10-26-2024 * * *Final Report* * * DATE OF EXAM: Oct 26 2024 9:09AM [facility] 0326 - MRI THORACIC SPINE WO/W [...] and iliac wings are within normal limits. DIVISION OF RADIOLOGY Provider, [facility] - 10/26/2024 * * *Final Report* * * DATE OF EXAM: Oct 26 2024 9:09AM [facility] 0326 - MRI THORACIC SPINE WO/W [...] IMPRESSION: Innumerable para (more content not included)... [facility] MRI CERVICAL SPINE WO/W IVCO Non 10-26-2024 MRI CERVICAL SPINE WO/W IVCON * * *Final Report* * * DATE OF EXAM: Oct 26 2024 9:09AM [facility] 0298 - MRI CERVICAL SPINE WO/W [...] Stable degenerative (more content not included)... [facility] MRI LUMBAR SPINE WO/W IVCONo n 10-26-2024 MRI LUMBAR SPINE WO/W IVCON * * *Final Report* * * DATE OF EXAM: Oct 26 2024 9:09AM [facility] 0304 - MRI LUMBAR SPINE WO/W [...] degenerative c (more content not included)... [facility] MRI THORACIC SPINE WO/W IVCO Non 10-26-2024 MRI THORACIC SPINE WO/W IVCON * * *Final Report* * * DATE OF EXAM: Oct 26 2024 9:09AM [facility] 0326 - MRI THORACIC SPINE WO/W [...] Stable degenerative (more content not included)... [facility] No Panel Informationon 10-26 IMPRESSION: Innumerable paraspinal [...] and assume there are 5 lumbar-type vertebrae. Collective Bargaining Specialist: TAVO Transcribe Date/Time: Oct 26 2024 9:25A Dictated by : JENN SMILEY MD This examination was interpreted and the report reviewed and electronically signed by: JENN SMILEY MD on Oct 26 2024 10:32AM [facility] DIVISION OF RADIOLOGY Radiology Study observation (narrative) [facility] No Panel InformationOrdered By: Ccf Provider on 10-26-2024 [facility] US GALLBLADDERon 10-22-2024 US GALLBLADDER Interpreted By: Demetrius Britt, STUDY: US GALLBLADDER; 10/22/2024 2:58 pm INDICATION: Signs/Symptoms:ruq abd pressure; known intraabdominal benign plexiform neurofibromas. COMPARISON: None. ACCESSION NUMBER(S): [id number] ORDERING CLINICIAN: MICHELLE MENCHACA TECHNIQUE: Multiple images [...] Demetrius Huffman 10/23/2024 8:07 AM Dictation workstation: [id number] [facility] Bacteria identifiedon 2024 Bacteria identified Cx Nom (U) Test: Urine Culture Specimen Source: Clean Catch/Voided Specimen Type: Urine Specimen Date: 10/15/2024 144 Result Date: 10/17/2024826 Result Status: Final result Abnormal: No Resulting Lab: [facility] [address] [place] [address] CULTURE Clinically insignificant growth based on current clinical standards. [facility] Ambulatory Comment on above: Performed By: #### 6 30-4 #### ESTELLE eRmy ([id number]) [facility] ([facility]) [address] [place] [address] POCT UA Automated manually r esultedon 10-15-2024 Appearance (U) Clear Clear [facility] Work Phone: [phone] Glucose Test strip (U) [Mass/Vol] Negative NEGATIVE mg/dl [facility] Work Phone: [phone] Hemoglobin Ql (U) Negative NEGATIVE [facility] Work Phone: [phone] Leukocyte esterase Test strip Ql (U) Negative NEGATIVE [facility] Work Phone: [phone] Nitrite Ql (U) Negative NEGATIVE [facility] Work Phone: [phone] pH (U) 6.0 [pH] No Reference Range Established [facility] Work Phone: [phone] POC Bilirubin, Urine Negative NEGATIVE [facility] Work Phone: [phone] POC Color, Urine Yellow Straw, Yellow, Light-Yellow [facility] Work Phone: [phone] POC Ketones, Urine Negative NEGATIVE mg/dl [facility] Work Phone: [phone] POC Protein, Urine Negative NEGATIVE mg/dl [facility] Work Phone: [phone] POC Specific [place], Urine >=1.030 1.005 - 1.035 [facility] Work Phone: [phone] POC Urobilinogen, Urine 0.2 0.2, 1.0 EU/DL [facility] Work Phone: [phone] [facility] Work Phone: PT D/C Summary (1)on 025 PT D/C Summary (1) [facility] Physical Therapy [address] [place] [address] / REHABILITATION SERVICES DISCHARGE SUMMARY MR#: [id number] Acct: [id number] Name: SANDRA SANCHEZ Rep #: [id number] : 1970 53 From: Yamilka Elam PT. [...] please feel free to call me at [phone]. Thank you for the referral of this patient. Sincerely, Kris Whelan PT, Cert MDT, OCS Balance/Gait/Functional tests Balance/Special Test Scores Oswestry Neck Score: 6 Improvement % Improvement: 75 06/15/24 1421 CC: Dr. Ramandeep Lobo DO; No Primary Care Physician OBINNA Signed Normal [facility] Re-Evaluation - PT (1)on Re-Evaluation - PT (1) [facility] [address] [place] [address] / REEVALUATION / MEDICARE RECERTIFICATION PHYSICAL THERAPY MR#: [id number] Acct: [id number] Name: SANDRA SANCHEZ Rep #: [id number] : 1970 53 From: Kris Whelan PT, [...] do not hesitate to contact me at [phone] by phone or if you have questions or concerns regarding this new plan of care! Sincerely, Kris Whelan, PT, Cert T, OCS 05/13/24 2855 CC: Dr. Ramandeep Lobo DO; No Primary Care Physician OBINNA Signed For Medicare only, by signing this I certify the plan of care. ___ Physicians Signature Date Normal [facility] Re-Evaluation - PT (1)on Re-Evaluation - PT (1) [facility] [address] [place] [address] / REEVALUATION / MEDICARE RECERTIFICATION PHYSICAL THERAPY MR#: [id number] Acct: [id number] Name: SANDRA SANCHEZ Rep #: [id number] : 1970 53 From: Kris Whelan PT, [...] do not hesitate to contact me at [phone] by phone or if you have questions or concerns regarding this new plan of care! Sincerely, Kris Whelan, PT, Cert T, OCS 04/14/24 1352 CC: Dr. Ramandeep Lobo DO; No Primary Care Physician CHICHIA Signed For Medicare only, by signing this I certify the plan of care. ___ Physicians Signature Date Normal [facility] Re-Evaluation - PT (1)on Re-Evaluation - PT (1) [facility] [address] [place] [address] / REEVALUATION / MEDICARE RECERTIFICATION PHYSICAL THERAPY MR#: [id number] Acct: [id number] Name: SANDRA SANCHEZ Rep #: [id number] : 1970 53 From: Kris Whelan PT, [...] do not hesitate to contact me at [phone] by phone or if you have questions or concerns regarding this new plan of care! Sincerely, Kris Whelan, PT, Cert MDT, OCS 03/18/24 1350 CC: Dr. Ramandeep Lobo, DO; No Primary Care Physician OBINNA Signed For Medicare only, by signing this I certify the plan of care. ___ Physicians Signature Date Normal [facility] CT CARDIAC SCORING WO IV CON TRASTon 03-16-2024 CT CARDIAC SCORING WO IV CONTRAST Interpreted By: Andriy Hoffmann, STUDY: CT CARDIAC SCORING WO IV CONTRAST; 03/16/2024 11:13 am INDICATION: Signs/Symptoms:screening; FMHx of AAA in father who was a smoker. ,Z13.6 Encounter for screening for cardiovascular disorders COMPARISON: None. ACCESSION NUMBER(S): [id number] ORDERING CLINICIAN: RAMANDEEP TOM TECHNIQUE: Using prospective [...] coronary heart disease events. According to the [employer] Clinical Expert Consensus [...] modify other non-lipid coronary risk factors. Reference: [place] P et al. Circulation. 2007; 115:402-426 2. Left paraspinal nodularities are present. Past medical history of neurofibromatosis. MACRO: None Signed by: Andriy Hoffmann 03/22/2024 10:45 AM Dictation workstation: [id number] [facility] BI MAMMO BILATERAL SCREENING TOMOSYNTHESISon 03-01-2024 BI MAMMO BILATERAL SCREENING TOMOSYNTHESIS Interpreted By: Magdiel Ann, STUDY: BI MAMMO BILATERAL SCREENING TOMOSYNTHESIS; 03/01/2024 1:17 pm ACCESSION NUMBER(S): [id number] ORDERING CLINICIAN: RAMANDEEP TOM INDICATION: Screening. Benign [...] any future breast imaging appointments, please call [phone] MACRO: None Signed by: Magdiel Ann 03/06/2024 9:47 PM Dictation workstation: [id number] [facility] DEXA BONE DENSITYon 03-01-20 24 DEXA BONE DENSITY Interpreted By: Iraj Lambert, STUDY: DEXA BONE [id number]/01/2024 1:37 pm INDICATION: Follow-up. COMPARISON: DEXA scan 02/25/2022. ACCESSION NUMBER(S): [id number] ORDERING CLINICIAN: RAMANDEEP TOM TECHNIQUE: DEXA BONE [...] Fracture 1.8% This exam was performed at [facility] on a [employer] Dexa Unit. IMPRESSION: DEXA: According to World Health Organization criteria, classification is low bone mass (osteopenia) Followup recommended in two years or sooner as clinically warranted. All images and detailed analysis are available on the Radiology PACS. Signed by: Iraj Lambert 03/01/2024 1:54 PM Dictation workstation: [id number] [facility] DXA Skeletal system Views fo r bone densityon 03-01-2024 DEXA: According to W orld Health Organization criteria, classification is low bone mass (osteopenia) Followup recommended in two years or sooner as clinically warranted. All images and detailed analysis are available on the Radiology PACS. Signed by: Iraj Lambert 03/01/2024 1:54 PM Dictation workstation: [id number] [facility] Interpreted By: Iraj Lambert, STUDY: DEXA BONE [id number]/01/2024 1:37 pm INDICATION: Follow-up. COMPARISON: DEXA scan 02/25/2022. ACCESSION NUMBER(S): [id number] ORDERING CLINICIAN: RAMANDEEP TOM TECHNIQUE: DEXA BONE [...] Fracture 1.8% This exam was performed at [facility] on a [employer] Dexa Unit. [facility] Iraj Lambert, - 03/01/2024 Interpreted By: Iraj Lambert, STUDY: DEXA BONE [id number]/01/2024 1:37 pm INDICATION: Follow-up. COMPARISON: DEXA scan 02/25/2022. ACCESSION NUMBER(S): [id number] ORDERING CLINICIAN: RAMANDEEP TOM TECHNIQUE: DEXA BONE [...] Fracture 1.8% This exam was performed at [facility] on a [employer] Dexa Unit. IMPRESSION: DEXA: According to World Health Organization criteria, classification is low bone mass (osteopenia) Followup recommended in two years or sooner as clinically warranted. All images and detailed analysis are available on the Radiology PACS. Signed by: Iraj Lambert 03/01/2024 1:54 PM Dictation workstation: [id number] [facility] Work Phone: Radiology Study observation (narrative) [facility] Work Phone: DXA Skeletal system Views fo r bone densityOrdered By: Iraj Lambert on 03-01-2024 [facility] Work Phone: Inital Evaluation (1) - PTon 02-19-2024 Inital Evaluation (1) - PT [facility] [address] [place] [address] [address] [place] [address] / REHABILITATION SERVICES INITIAL EVALUATION MR#: [id number] Acct: [id number] Name: SANDRA SANCHEZ Rep #: [id number] : 1970 53 From: Yamilka Elam PT. MD Pat, OCS Referring DreRgina: Dr. Ramandeep Lobo DO Status: REG RCR Insurance: MEDICARE PART A B MEDICAID Patient's Visit Information Visit Information Visit Information: SANDRA SANCHEZ is a 53 year old F referred to Physical Therapy by Dr. Ramandeep Lboo DO with a diagnosis of NECK STIFFNESS [...] pain many years along with SORENSEN. Seen DR recommended PT ,tried baclofen and imaging MRI [...] motion test (more content not included)... Normal [facility] CBC W Auto Differential pane l (Bld)on 02-03-2024 Basophils (Bld) [#/Vol] 0.05 x10*3/uL Normal 0.00-0.10 [facility] Comment on above: Performed By: #### 5 7021-8 #### ESTELLE Remy ([id number]) [facility] ([facility]) [address] [place] [address] 85682 Basophils/100 WBC (Bld) 0.7 % Normal 0.0-2.0 [facility] Comment on above: Performed By: #### 5 7021-8 #### ESTELLE Remy ([id number]) [facility] ([facility]) [address] [place] [address] 28961 Eosinophils (Bld) [#/Vol] 0.09 x10*3/uL Normal 0.00-0.70 [facility] Comment on above: Performed By: #### 5 7021-8 #### ESTELLE Remy ([id number]) [facility] ([facility]) [address] [place] [address] 29944 Eosinophils/100 WBC (Bld) 1.3 % Normal 0.0-6.0 [facility] Comment on above: Performed By: #### 5 7021-8 #### ESTELLE Remy ([id number]) [facility] ([facility]) [address] [place] [address] 14887 Erythrocyte distribution width (RBC) [Ratio] 11.8 % Normal 11.5-14.5 [facility] Comment on above: Performed By: #### 5 7021-8 #### ESTELLE Remy ([id number]) [facility] ([facility]) [address] [place] [address] 32362 Hematocrit (Bld) [Volume fraction] 42.8 % Normal 36.0-46.0 [facility] Comment on above: Performed By: #### 5 7021-8 #### ESTELLE Remy ([id number]) [facility] ([facility]) [address] [place] [address] 91883 Hemoglobin (Bld) [Mass/Vol] 14.6 g/dL Normal 12.0-16.0 [facility] Comment on above: Performed By: #### 5 7021-8 #### ESTELLE Remy ([id number]) [facility] ([facility]) [address] [place] [address] 88761 Immature granulocytes (Bld) [#/Vol] 0.02 x10*3/uL Normal 0.00-0.70 [facility] Comment on above: Performed By: #### 5 7021-8 #### ESTELLE Remy ([id number]) [facility] ([facility]) [address] [place] [address] [place] [address] Immature granulocytes/100 WBC (Bld) 0.3 % Normal 0.0-0.9 [facility] Comment on above: Result Comment: Joan ture Granulocyte Count (IG) includes promyelocytes, myelocytes and metamyelocytes but does not include bands. Percent differential counts (%) should be interpreted in the context of the absolute cell counts (cells/UL). Performed By: #### 5 7021-8 #### ESTELLE Remy ([id number]) [facility] ([facility]) [address] [place] [address] 54164 Lymphocytes (Bld) [#/Vol] 3.07 x10*3/uL Normal 1.20-4.80 [facility] Comment on above: Performed By: #### 5 7021-8 #### ESTELLE Remy ([id number]) [facility] ([facility]) [address] [place] [address] 91706 Lymphocytes/100 WBC (Bld) 44.8 % Normal 13.0-44.0 [facility] Comment on above: Performed By: #### 5 7021-8 #### ESTELLE Remy ([id number]) [facility] ([facility]) [address] [place] [address] 87970 MCH (RBC) [Entitic mass] 32.1 pg Normal 26.0-34.0 [facility] Comment on above: Performed By: #### 5 7021-8 #### ESTELLE Remy ([id number]) [facility] ([facility]) [address] [place] [address] 23800 MCHC (RBC) [Mass/Vol] 34.1 g/dL Normal 32.0-36.0 [facility] Comment on above: Performed By: #### 5 7021-8 #### ESTELLE ANGEL L ([id number]) [facility] ([facility]) [address] [place] [address] 99052 MCV (RBC) [Entitic vol] 94 fL Normal 80-100 [facility] Comment on above: Performed By: #### 5 7021-8 #### ESTELLE Remy ([id number]) [facility] ([facility]) [address] [place] [address] Monocytes (Bld) [#/Vol] 0.49 x10*3/uL Normal 0.10-1.00 [facility] Comment on above: Performed By: #### 5 7021-8 #### ESTELLE Remy ([id number]) [facility] ([facility]) [address] [place] [address] 69453 Monocytes/100 WBC (Bld) 7.1 % Normal 2.0-10.0 [facility] Comment on above: Performed By: #### 5 7021-8 #### ESTELLE Remy ([id number]) [facility] ([facility]) [address] [place] [address] 16277 Neutrophils (Bld) [#/Vol] 3.14 x10*3/uL Normal 1.20-7.70 [facility] Comment on above: Result Comment: Perc ent differential counts (%) should be interpreted in the context of the absolute cell counts (cells/uL). Performed By: #### 5 7021-8 #### ESTELLE Remy ([id number]) [facility] ([facility]) [address] [place] [address] 23410 Neutrophils/100 WBC (Bld) 45.8 % Normal 40.0-80.0 [facility] Comment on above: Performed By: #### 5 7021-8 #### ESTELLE Remy ([id number]) [facility] ([facility]) [address] [place] [address] 52894 Nucleated RBC/100 WBC (Bld) [Ratio] 0.0 /100 WBCs Normal 0.0-0.0 [facility] Comment on above: Performed By: #### 5 7021-8 #### ESTELLE Remy ([id number]) [facility] ([facility]) [address] [place] [address] 89217 Platelets (Bld) [#/Vol] 238 x10*3/uL Normal 150-450 [facility] Comment on above: Performed By: #### 5 7021-8 #### ESTELLE Remy ([id number]) [facility] ([facility]) [address] [place] [address] RBC (Bld) [#/Vol] 4.55 x10*6/uL Normal 4.00-5.20 [facility] Comment on above: Performed By: #### 5 7021-8 #### ESTELLE Remy (65602) [facility] ([facility]) [address] [place] [address] 04626 WBC (Bld) [#/Vol] 6.9 x10*3/uL Normal 4.4-11.3 [facility] Comment on above: Performed By: #### 5 7021-8 #### ESTELLE Remy ([id number]) [facility] ([facility]) [address] [place] [address] 02468 Comprehensive metabolic 2000 panelon 02-03-2024 Albumin BCP dye [Mass/Vol] 4.2 g/dL Normal 3.4-5.0 [facility] Comment on above: Performed By: #### 2 4323-8 #### ESTELLE Remy ([id number]) [facility] ([facility]) [address] [place] [address] 92625 ALP [Catalytic activity/Vol] 126 U/L High 33-110 [facility] Comment on above: Performed By: #### 2 4323-8 #### ESTELLE Remy (25763) [facility] ([facility]) [address] [place] [address] 13098 ALT With P-5'-P [Catalytic activity/Vol] 12 U/L Normal 7-45 [facility] Comment on above: Result Comment: Arpita ents treated with Sulfasalazine may generate falsely decreased results for ALT. Performed By: #### 2 4323-8 #### ESTELLE Remy (56531) [facility] ([facility]) [address] [place] [address] Anion gap [Moles/Vol] 13 mmol/L Normal 10-20 [facility] Comment on above: Performed By: #### 2 4323-8 #### ESTELLE Remy ([id number]) [facility] ([facility]) [address] [place] [address] 69487 AST With P-5'-P [Catalytic activity/Vol] 15 U/L Normal 9-39 [facility] Comment on above: Performed By: #### 2 4323-8 #### ESTELLE Remy (24762) [facility] ([facility]) [address] [place] [address] 90148 Bilirubin [Mass/Vol] 0.5 mg/dL Normal 0.0-1.2 [facility] Comment on above: Performed By: #### 2 4323-8 #### ESTELLE Remy ([id number]) [facility] ([facility]) [address] [place] [address] 35909 Calcium [Mass/Vol] 10.2 mg/dL Normal 8.6-10.6 [facility] Comment on above: Performed By: #### 2 4323-8 #### ESTELLE Remy ([id number]) [facility] ([facility]) [address] [place] [address] 36523 Chloride [Moles/Vol] 99 mmol/L Normal 98-107 [facility] Comment on above: Performed By: #### 2 4323-8 #### ESTELLE ANGEL L (79644) [facility] ([facility]) [address] [place] [address] 00413 CO2 [Moles/Vol] 29 mmol/L Normal 21-32 [facility] Comment on above: Performed By: #### 2 4323-8 #### ESTELLE Remy (23649) [facility] ([facility]) [address] [place] [address] 21232 Creatinine [Mass/Vol] 0.75 mg/dL Normal 0.50-1.05 [facility] Comment on above: Performed By: #### 2 4323-8 #### ESTELLE Remy ([id number]) [facility] ([facility]) [address] [place] [address] GFR/1.73 sq M.predicted MDRD (S/P/Bld) [Vol rate/Area] mL/min/{1.73_m2} Normal >60 [facility] Comment on above: Result Comment: Calc ulations of estimated GFR are performed using the 2020 CKD-EPI Study Refit equation without the race variable for the IDMS-Traceable creatinine methods. https://jasn.asnjournals.org/content/early//ASN.1970386 988 Performed By: #### 2 4323-8 #### ESTELLE Remy ([id number]) [facility] ([facility]) [address] [place] [address] 55462 Glucose [Mass/Vol] 100 mg/dL High 74-99 [facility] Comment on above: Performed By: #### 2 4323-8 #### ESTELLE ANGEL L (17209) [facility] ([facility]) [address] [place] [address] 09803 Potassium [Moles/Vol] 4.6 mmol/L Normal 3.5-5.3 [facility] Comment on above: Performed By: #### 2 4323-8 #### ESTELLE ANGEL L ([id number]) [facility] ([facility]) [address] [place] [address] 58799 Protein [Mass/Vol] 6.7 g/dL Normal 6.4-8.2 [facility] Comment on above: Performed By: #### 2 4323-8 #### ESTELLE ANGEL L ([id number]) [facility] ([facility]) [address] [place] [address] 44807 Sodium [Moles/Vol] 136 mmol/L Normal 136-145 [facility] Comment on above: Performed By: #### 2 4323-8 #### ESTELLE ANGEL L (04078) [facility] ([facility]) [address] [place] [address] 99573 Urea nitrogen [Mass/Vol] 13 mg/dL Normal 6-23 [facility] Comment on above: Performed By: #### 2 4323-8 #### ESTELLE Remy (26112) [facility] ([facility]) [address] [place] [address] 92158 Lipid 1996 panelon 4 Cholesterol [Mass/Vol] 214 mg/dL High 0-199 [facility] Comment on above: Result Comment: Age [...] By: #### 2 4331-1 #### ESTELLE Remy (33240) [facility] ([facility]) [address] [place] [address] Cholesterol in HDL [Mass/Vol] 55.2 mg/dL Normal [facility] Comment on above: Result Comment: Age Very Low Low Normal High 0-19 Y < 35 < 40 40-45 ---- 20-24 Y ---- < 40 >45 ---- >24 Y ---- < 40 40-60 >60 Performed By: #### 2 4331-1 #### ESTELLE Remy (81666) [facility] ([facility]) [address] [place] [address] Cholesterol in LDL [Mass/Vol] 129 mg/dL High <=99 [facility] Comment on above: Result Comment: Near Borderline AGE Desirable Optimal High High Very High 0-19 Y 0 - 109 --- 110-129 >/= 130 ---- 20-24 Y 0 - 119 --- 120-159 >/= 160 ---- >24 Y 0 - 99 100-129 130-159 160-189 >/=190 Performed By: #### 2 4331-1 #### ESTELLE Remy (95602) [facility] ([facility]) [address] [place] [address] Cholesterol in VLDL [Mass/Vol] 30 mg/dL Normal 0-40 [facility] Comment on above: Performed By: #### 2 4331-1 #### ESTELLE Remy (45405) [facility] ([facility]) [address] [place] [address] 93759 CHOLESTEROL/HDL RATIO 3.9 Normal [facility] Comment on above: Result Comment: Ref Values Desirable < 3.4 High Risk > 5.0 Performed By: #### 2 4331-1 #### ESTELLE Remy (35299) [facility] ([facility]) [address] [place] [address] 42125 NON HDL CHOLESTEROL 159 mg/dL High 0-149 [facility] Comment on above: Result Comment: Age Desirable Borderline High High Very High 0-19 Y 0 - 119 120 - 144 >/= 145 >/= 160 20-24 Y 0 - 149 150 - 189 >/= 190 ---- >24 Y 30 mg/dL above LDL Cholesterol goal Performed By: #### 2 4331-1 #### ESTELLE Remy (87375) [facility] ([facility]) [address] [place] [address] 74716 Triglyceride [Mass/Vol] 149 mg/dL Normal 0-149 [facility] Comment on above: Result Comment: Age [...] Performed By: #### 2 4331-1 #### ESTELLE KENNEDYER L (71473) [facility] ([facility]) [address] [place] [address] ISAIKELSYon 01-16-2024 CNOV Office Visit ([facility] ) ----- SANDRA SANCHEZ ([id number]) 1970 F Date Time Provider Department 01/16/24 6:30 PM ALONDRA PONCE [facility] During your visit today, we recorded the following information about you: Temperature Pulse Respiration Blood pressure 98.4 degrees 87/minute 18/minute 130/86 Weight 68 kg Alondra Ponce APRN.NITRILES LAB TECHNICIAN 01/16/2024 6:46 PM Signed Subjective Patient came [...] history is provided by the patient. No hourly sign language interpreter was used. Eye Problem Review of Systems [...] okay with this care plan. Alondra Ponce APRN.NITRILES LAB TECHNICIAN Allergies As of Date: 01/16/2024 Noted Allergy [...] erythromycin (R (more content not included)... Normal [facility] CNOVon 12-12-2023 CNOV Office Visit ([facility] ) ----- SANDRA SANCHEZ ([id number]) 1970 F Date Time Provider Department 12/12/23 1:00 PM CANDIDO CHAVEZ [facility] During your visit today, we [...] and eventually stopped when she presented to [facility] during 08/2021. 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 Normal [facility] MR Cervical spine WO and W c ontrast Issac 10-21-2023 * * *Final Report* * * DATE OF EXAM: Oct 21 2023 11:03AM [facility] 0298 - MRI CERVICAL SPINE WO/W IVCON [...] limited evaluation on that examination due to mplfv-gv-qpku. Smaller right prevertebral lesions in the lower [...] content not included)... DIVISION OF RADIOLOGY Provider, [facility] - 10/21/2023 * * *Final Report* * * DATE OF EXAM: Oct 21 2023 11:03AM [facility] 0298 - MRI CERVICAL SPINE WO/W IVCON [...] limited evaluation on that examination due to zlhvl-uc-byvi. Smaller right prevertebral lesions in the lower [...] the pelvis. IMPRESSION (more content not included)... [facility] MR Lumbar spine WO and W con trast Issac 10-21-2023 * * *Final Report* * * DATE OF EXAM: Oct 21 2023 11:03AM [facility] 0304 - MRI LUMBAR SPINE WO/W IVCON [...] increased since more remote outside exams from 2022, although limited evaluation on that examination due to kjfwh-[id number]. Smaller right prevertebral lesions in the lower [...] content not included)... DIVISION OF RADIOLOGY Provider, [facility] - 10/21/2023 * * *Final Report* * * DATE OF EXAM: Oct 21 2023 11:03AM [facility] 0304 - MRI LUMBAR SPINE WO/W [...] limited evaluation on that examination due to qrymk-mb-kcle. Smaller right prevertebral lesions in the lower [...] pelvis. IMPRESSION I (more content not included)... [facility] MR Pelvis WO and W contrast Issac 10-21-2023 IMPRESSION: Innumerable neurofibromas as described, overall similar in size and extent compared to 10/08/2022. Collective Bargaining Specialist: TAVO Transcribe Date/Time: Oct 21 2023 11:14A Dictated by : RONAL LEYVA MD This examination was interpreted and the report reviewed and electronically signed by: DANIELLA BATEMAN MD on Oct 21 2023 11:56AM [facility] DIVISION OF RADIOLOGY * * *Final Report* * * DATE OF EXAM: Oct 21 2023 11:03AM [facility] 0742 - MRI PELVIS WO/W IVCON [...] suspicious marrow replacing lesions. Hip joints: Large jnynp-wa-uveu images of the hips demonstrate mild degenerative [...] represent additional neurofibromas. DIVISION OF RADIOLOGY Provider, [facility] - 10/21/2023 * * *Final Report* * * DATE OF EXAM: Oct 21 2023 11:03AM [facility] 0742 - MRI PELVIS WO/W IVCON / [...] suspicious marrow replacing lesions. Hip joints: Large ucgtj-xr-gjte images of the hips demonstrate mild degenerative [...] in size and extent compared to 10/08/2022. Collective Bargaining Specialist: PSCB Transcribe Date/Time: Oct 21 2023 11:14A Dictated by : RONAL LEYVA MD This examination was interpreted and the report reviewed and electronically signed by: DANIELLA BATEMAN MD on Oct 21 2023 11:56AM EST [facility] MR Pelvis WO and W contrast IVOrdered By: Ccf Provider on 10-21-2023 [facility] MR Thoracic spine WO and W c ontrast Issac 10-21-2023 * * *Final Report* * * DATE OF EXAM: Oct 21 2023 11:03AM [facility] 0326 - MRI THORACIC SPINE WO/W IVCON [...] limited evaluation on that examination due to rwhvj-ep-trxw. Smaller right prevertebral lesions in the lower [...] content not included)... DIVISION OF RADIOLOGY Provider, May Yohana [facility] - 10/21/2023 * * *Final Report* * * DATE OF EXAM: Oct 21 2023 11:03AM [facility] 0326 - MRI THORACIC SPINE WO/W IVCON [...] limited evaluation on that examination due to blvak-de-jcrg. Smaller right prevertebral lesions in the lower [...] the pelvis. IMPRESSION (more content not included)... [facility] No Panel Informationon 10-20 IMPRESSION: Innumerable paravertebral [...] and assume there are 5 lumbar-type vertebrae. Collective Bargaining Specialist: [facility] Transcribe Date/Time: Oct 21 2023 11:14A Dictated by : LAVONNE YUEN MD This examination was interpreted and the report reviewed and electronically signed by: LAVONNE YUEN MD on Oct 21 2023 11:39AM [facility] DIVISION OF RADIOLOGY Radiology Study observation (narrative) [facility] No Panel InformationOrdered By: Ccf Provider on 10-21-2023 [facility] URINE CULTURE,BACTERIALon URINE CULTURE,BACTERIAL PATIENT: SANDRA SANCHEZ LOCATION: [address] BILL#: [id number] : 70 AGE: SEX: F ORDERED BY: [...] DEPENDENT NS=NONSUSCEPTIBLE X=REPORTED IN ERROR ___ Normal [facility] Comment on above: Performed By: #### U RINC #### [facility] [address] [place] [address] Culture, urineOrdered By: [facility] on 11-12-2022 Bacteria identified Cx Nom (U) Presumptive E. coli [facility] - Chemistry and C hemistry - challengeon 11-12-2022 Bilirubin Ql (U) Negative [facility] Glucose Ql (U) Negative [facility] Ketones Ql (U) Negative [facility] pH (U) 7.5 [pH] [facility] Specific gravity (U) [Rel density] 1.005 [facility] Urobilinogen (U) [Mass/Vol] 0.4493002 mg/dL [facility] - Hematology and Cell countson 11-12-2022 Hemoglobin Ql (U) Negative [facility] - Specimen inform ationon 11-12-2022 Clarity (U) Cloudy [facility] Color (U) YELLOW [facility] - Urinalysison Nitrite Ql (U) Positive [facility] Protein Ql (U) Negative [facility] No Panel Informationon 11-12 Urine Leukocytes Positive [facility] Urine Non-Hemolyzed Blood Negative [facility] No Panel Informationon 10-08 [facility] DIGITAL MAMM SCREENING W/ TO Valadez 09-02-2022 DIGITAL MAMM SCREENING W/ YONG Patient Name: SANDRA SANCHEZ STUDY: DIGITAL MAMM SCREENING W/ YONG; 09/02/2022 3:29 pm ACCESSION NUMBER(S): [id number] ORDERING CLINICIAN: RAMANDEEP SMALLWOOD INDICATION: Screening. History [...] any future breast imaging appointments, please call [phone]). Patient letter sent SNORM I personally reviewed the images/study and I agree with the findings as stated. This study was interpreted at [place], [place]. Electronically signed by: SÁNCHEZ ZUÑIGA MD Normal [facility] CANNABINOID CONFIRM.URINEon 08-03-2022 57-WBT-4-CARBOXY-THC 78 ng/mL Normal [facility] Comment on above: Result Comment: INTE RPRETIVE INFORMATION: THC Metabolite, Urine, Quantitative Methodology: Quantitative Liquid Chromatography-Tandem Mass Spectrometry Positive cutoff: 15 ng/mL For medical purposes only; not valid for forensic use. The drug analyte detected in this assay, 9-carboxy THC, is a metabolite of fzroc-0-hkiyfqdclklfovjxpafp (THC). Detection of 9-carboxy THC suggests use [...] developed and its performance characteristics determined by [employer]. It has not been cleared or approved by the US Food and Drug Administration. This test was performed in a CLIA certified laboratory and is intended for clinical purposes. Performed By: [facility] [address] [place] [address] Layboy Operator: Lavonne Rubalcava MD, PhD Performed By: #### C ANCN #### [facility] [address] [place] [address] OPIATE/OPIOID/BENZO EXTENDED PRESCRIPTION COMPLIANCEon 08-01-2022 6-ACETYLMORPHINE <25 Normal Cutoff <25 [facility] Comment on above: Performed By: #### D SBOP #### [facility] [address] [place] [address] 7-AMINOCLONAZEPAM <25 Normal Cutoff <25 [facility] Comment on above: Performed By: #### D SBOP #### [facility] [address] [place] [address] ALPHA-HYDROXYALPRAZO RIVAS <25 Normal Cutoff <25 [facility] Comment on above: Performed By: #### D SBOP #### [facility] [address] [place] [address] ALPHA-HYDROXYMIDAZOL AM <25 Normal Cutoff <25 [facility] Comment on above: Performed By: #### D SBOP #### [facility] [address] [place] [address] ALPRAZOLAM <25 Normal Cutoff <25 [facility] Comment on above: Performed By: #### D SBOP #### [facility] [address] [place] [address] CHLORDIAZEPOXIDE <25 Normal Cutoff <25 [facility] Comment on above: Performed By: #### D SBOP #### [facility] [address] [place] [address] CLONAZEPAM <25 Normal Cutoff <25 [facility] Comment on above: Performed By: #### D SBOP #### [facility] [address] [place] [address] CODEINE <50 Normal Cutoff <50 [facility] Comment on above: Performed By: #### D SBOP #### [facility] [address] [place] [address] DIAZEPAM <25 Normal Cutoff <25 [facility] Comment on above: Performed By: #### D SBOP #### [facility] [address] [place] [address] EDDP,U <25 Normal Cutoff <25 [facility] Comment on above: Result Comment: The performance [...] testing. Performed By: #### D SBOP #### [facility] [address] [place] [address] FENTANYL CONFIRM,U <2.5 Normal Cutoff<2.5 [facility] Comment on above: Performed By: #### D SBOP #### [facility] [address] [place] [address] HYDROCODONE <25 Normal Cutoff <25 [facility] Comment on above: Performed By: #### D SBOP #### [facility] [address] [place] [address] HYDROMORPHONE <25 Normal Cutoff <25 [facility] Comment on above: Performed By: #### D SBOP #### [facility] [address] [place] [address] LORAZEPAM <25 Normal Cutoff <25 [facility] Comment on above: Performed By: #### D SBOP #### [facility] [address] [place] [address] METHADONE,U <25 Normal Cutoff <25 [facility] Comment on above: Performed By: #### D SBOP #### [facility] [address] [place] [address] MIDAZOLAM <25 Normal Cutoff <25 [facility] Comment on above: Performed By: #### D SBOP #### [facility] [address] [place] [address] MORPHINE <50 Normal Cutoff <50 [facility] Comment on above: Performed By: #### D SBOP #### [facility] [address] [place] [address] NORDIAZEPAM <25 Normal Cutoff <25 [facility] Comment on above: Performed By: #### D SBOP #### [facility] [address] [place] [address] NORFENTANYL CONFIRM,U <2.5 Normal Cutoff<2.5 [facility] Comment on above: Result Comment: The performance [...] testing. Performed By: #### D SBOP #### [facility] [address] [place] [address] NORHYDROCODONE <25 Normal Cutoff <25 [facility] Comment on above: Performed By: #### D SBOP #### [facility] [address] [place] [address] NOROXYCODONE <25 Normal Cutoff <25 [facility] Comment on above: Performed By: #### D SBOP #### [facility] [address] [place] [address] O-DESMETHYLTRAMADOL, U <50 Normal Cutoff <50 [facility] Comment on above: Result Comment: The performance [...] testing. Performed By: #### D SBOP #### [facility] [address] [place] [address] OXAZEPAM <25 Normal Cutoff <25 [facility] Comment on above: Performed By: #### D SBOP #### [facility] [address] [place] [address] OXYCODONE <25 Normal Cutoff <25 [facility] Comment on above: Performed By: #### D SBOP #### [facility] [address] [place] [address] OXYMORPHONE <25 Normal Cutoff <25 [facility] Comment on above: Result Comment: The performance [...] testing. Performed By: #### D SBOP #### [facility] [address] [place] [address] TEMAZEPAM <25 Normal Cutoff <25 [facility] Comment on above: Result Comment: The performance [...] testing. Performed By: #### D SBOP #### [facility] [address] [place] [address] TRAMADOL CONFIRM,U <50 Normal Cutoff <50 [facility] Comment on above: Performed By: #### D SBOP #### [facility] [address] [place] [address] ZOLPIDEM METABOLITE[ZCA] ,U >1000 Abnormal Cutoff <25 [facility] Comment on above: Result Comment: Zolp idem [...] testing. Performed By: #### D SBOP #### [facility] [address] [place] [address] ZOLPIDEM,URINE <25 Normal Cutoff <25 [facility] Comment on above: Performed By: #### D SBOP #### [facility] [address] [place] [address] OPIATE/OPIOID/BENZO EXTENDED PRESCRIPTION COMPLIANCEon 07-30-2022 AMPHETAMINE SCREEN,U Negative Normal NEGATIVE [facility] Comment on above: Result Comment: CUTO FF LEVEL: 500 NG/ML Cross-reactivity has been reported with high concentrations of the following drugs: buproprion, chloroquine, chlorpromazine, ephedrine, mephentermine, fenfluramine, phentermine, phenylpropanolamine, pseudoephedrine, and propranolol. Performed By: #### D SBOP #### [facility] [address] [place] [address] BARBITURATES SCREEN,U Negative Normal NEGATIVE [facility] Comment on above: Result Comment: CUTO FF LEVEL: 200 NG/ML Performed By: #### D SBOP #### [facility] [address] [place] [address] CANNABINOIDS SCREEN,U Positive Abnormal NEGATIVE [facility] Comment on above: Result Comment: CUTO FF LEVEL: 50 NG/ML Performed By: #### D SBOP #### [facility] [address] [place] [address] COCAINE METABOLITE SCREEN,U Negative Normal NEGATIVE [facility] Comment on above: Result Comment: CUTO FF LEVEL: 150 NG/ML Performed By: #### D SBOP #### [facility] [address] [place] [address] Creatinine [Mass/Vol] 143.9 mg/dL Normal [facility] Comment on above: Result Comment: A ur ine creatinine result >= 20 mg/dL is considered valid without suspicion of dilution. Samples with results below this range will automatically reflex to specific gravity testing to verify specimen integrity. Performed By: #### D SBOP #### [facility] [address] [place] [id number] DRUG SCREEN COMMENT. SEE BELOW Normal [facility] Comment on above: Result Comment: Drug screen [...] directors. Performed By: #### D SBOP #### [facility] [address] [place] [id number] PCP SCREEN,U Negative Normal NEGATIVE [facility] Comment on above: Result Comment: CUTO FF LEVEL: 25 NG/ML Cross-reactivity has been reported with dextromethorphan. Performed By: #### D SBOP #### [facility] [address] [place] [address] OPIATE/OPIOID/BENZO EXTENDED PRESCRIPTION COMPLIANCEon 07-29-2022 Lab Specimen Source Normal [facility] Comment on above: Performed By: #### D SBOP #### [facility] [address] [place] [address] XR ESOPHAGRAMon 07-03-2022 [facility] CNTHERAPYon 05-15-2022 CNTHERAPY OT/PT/Speech Visit ([facility]) ----- SANDRA SANCHEZ ([id number]) 1970 F Date Time Provider Department 05/15/22 1:30 PM CHRISTINA DE ANDA VICKIEE Date Time Provider Department [place] 05/15/2022 1:30 PM [id number], JOYCE HIENKEEE [facility] Reason for Visit: Speech Instrumental Swallow Eval [...] fall. Date Reviewed: 03/12/2022 Reviewed by: Berta Zamora RN - Fully Assessed Prescriptions as of 05/15/2022 [...] bedtime. ----- Letter Text Letter Text Normal [facility] XR MOD BARIUM SWALLOW W IRA Smith 05-15-2022 XR MOD BARIUM SWALLOW W SPEECH [...] pathology notes. IMPRESSION: See speech pathology notes. Collective Bargaining Specialist: PSCB Transcribe Date/Time: May 16 2022 6:51A Dictated by : KRIS ANGEL MD This examination was interpreted and the report reviewed and electronically signed by: KRIS ANGEL MD on May 16 2022 6:52AM EST [id number] Normal [facility] XR MODIFIED BARIUM SWALLOW W SPEECH THERAPYon 05-15-2022 [facility] No Panel Informationon 05-06 FINAL REPORT Interpreted by: LIT WANG A, MD 05/06/22 19:45 Patient Name: SANDRA SANCHEZ STUDY: US PELVIS TRANSABDOMINAL WITH TRANSVAGINAL; 05/06/2022 1:48 pm INDICATION: post-menopausal bleeding, no pelvic pain N95.0: Postmenopa Normal [facility] Work Phone: 1,25-dihydroxyvitamin D3 [Ma ss/Vol]on 03-12-2022 1,25 Dihydroxy Vitamin Total 62.0 pg/mL 19.9 - 79.3 pg/mL [facility] FOLATE SERUMon 03-12-2022 Folate [Mass/Vol] 12.5 ng/mL >4.7 ng/mL [facility] T4 FREE/FREE THYROXon 2021 Free T4 [Mass/Vol] 1.0 ng/dL 0.9 - 1.7 ng/dL [facility] TSH BLDon 03-12-2022 TSH Qn 1.450 m[IU]/L 0.270 - 4.200 mIU/L [facility] VITAMIN B12 BLOODon 03-12-20 Cobalamin (Vitamin B12) [Mass/Vol] 574 pg/mL 232 - 1,245 pg/mL [facility] Xray Bone Density, Dexa 1 or More Siteson 02-25-2022 DXA Bone [Mass/Area] Bone density FINAL REPORT Interpreted by: TONI PHOENIX HANAUER, MD 02/25/22 15:13 Name: SANDRA SANCHEZ Date: 1970 Height: 65.0 in. Gender: Female Exam Date: 02/25/2022 Weight: 132.0 lbs. Indications: Osteopenia of b Normal [facility] Work Phone: Laboratory - Chemistry and C hemistry - challengeon 10-16-2021 Albumin BCP dye [Mass/Vol] 4.2 g/dL 3.4 - 5.0 [facility] Work Phone: ALP [Catalytic activity/Vol] 112 U/L above high threshold 33 - 110 [facility] Work Phone: ALT With P-5'-P [Catalytic activity/Vol] 11 U/L 7 - 45 [facility] Work Phone: Comment on above: Patients treated wit h Sulfasalazine may generate falsely decreased results for ALT. Anion gap [Moles/Vol] 12 mmol/L 10 - 20 [facility] Work Phone: AST With P-5'-P [Catalytic activity/Vol] 16 U/L 9 - 39 [facility] Work Phone: Bilirubin [Mass/Vol] 0.5 mg/dL 0.0 - 1.2 [facility] Work Phone: Calcium [Mass/Vol] 9.3 mg/dL 8.6 - 10.6 [facility] Work Phone: Chloride [Moles/Vol] 104 mmol/L 98 - 107 [facility] Work Phone: CO2 [Moles/Vol] 26 mmol/L 21 - 32 [facility] Work Phone: Creatinine [Mass/Vol] 0.69 mg/dL See Below [facility] Work Phone: Comment on above: Reference Range: 0.5 0 - 1.05 Glucose [Mass/Vol] 82 mg/dL 74 - 99 [facility] Work Phone: Potassium [Moles/Vol] 5.0 mmol/L 3.5 - 5.3 [facility] Work Phone: Protein [Mass/Vol] 6.9 g/dL 6.4 - 8.2 [facility] Work Phone: Sodium [Moles/Vol] 137 mmol/L 136 - 145 [facility] Work Phone: TSH Qn 1.80 m[IU]/L See Below [facility] Work Phone: Comment on above: Reference Range: 0.4 4 - 3.98 TSH testing is performed using different testing methodology at [facility] than at other [facility]. Direct result comparisons should only be made within the same method. Urea nitrogen [Mass/Vol] 12 mg/dL 6 - 23 [facility] Work Phone: Laboratory - Cytologyon 05-3 Cytology report Cyto stain.thin prep Doc (Cvx/Vag) [facility] Work Phone: Cytology report Cyto stain.thin prep Doc (Cvx/Vag) Date of Procedure: 10/16/2021 Pathologist: [facility], Cytology Date Reported: 11/01/2021 Date Received: 10/16/2021 Submitting Physician: RAMANDEEP TOM DO Attending Physician: RAMANDEEP Treviño [facility] Work Phone: Laboratory - Hematology and Cell countson 10-16-2021 Erythrocyte distribution width (RBC) [Ratio] 12.0 % See Below [facility] Work Phone: Comment on above: Reference Range: 11. 5 - 14.5 Hematocrit (Bld) [Volume fraction] 42.0 % See Below [facility] Work Phone: Comment on above: Reference Range: 36. 0 - 46.0 Hemoglobin (Bld) [Mass/Vol] 14.0 g/dL See Below [facility] Work Phone: Comment on above: Reference Range: 12. 0 - 16.0 MCHC (RBC) [Mass/Vol] 33.3 g/dL See Below [facility] Work Phone: Comment on above: Reference Range: 32. 0 - 36.0 MCV (RBC) [Entitic vol] 98 fL 80 - 100 [facility] Work Phone: Platelets (Bld) [#/Vol] 190 10*3/uL 150 - 450 [facility] Work Phone: RBC (Bld) [#/Vol] 4.30 {x10E12/L} See Below [facility] Work Phone: Comment on above: Reference Range: 4.0 0 - 5.20 WBC (Bld) [#/Vol] 5.4 10*3/uL 4.4 - 11.3 [facility] Work Phone: Laboratory - Urinalysison Yeast LM Ql (Urine sed) ABSENT [facility] Work Phone: No Panel Informationon 10-16 0.0 {/100_WBC} 0.0-0.0 [facility] Work Phone: >90 >90 [facility] Work Phone: Comment on above: CALCULATIONS OF CHALINO MATED GFR ARE PERFORMED USING THE 2020 CKD-EPI STUDY REFIT EQUATION WITHOUT THE RACE VARIABLE FOR THE IDMS-TRACEABLE CREATININE METHODS.https://jasn.asnjournals.org/content//ASN .2589292468 Not at all - 0 [facility] Work Phone: Minimal Anxiety [facility] Work Phone: 0 1 [facility] Work Phone: Comment on [...] Not at all - 0 PRESENT Abnormal [facility] Work Phone: 7 [phone] Abnormal [facility] Work Phone: Comment on above: Interpretation of e Noe Score0-3.....Normal vaginal microbiota4-6.....Intermediate results7-10....Bacterial vaginosis Office Visit ([facility])on 10-16-2021 Follow-up visit Diagnoses/Problems Postmenopausal bleeding (627.1) [...] Intake Activity Log Entry by Bo Huerta ([email or web address]) on 2021-01-16 05:15 Status Change: Automated status [...] pelvic pain Screening for cervical cancer PAP ROLL TENDER, Cytology; Status:Hold For - Specimen/Data Collection,Retrospective Authorization; [...] chemo reaction vs endometrial overgrowth vs other ROLL TENDER referral placed today. Pap was completed today as well while doing pelvic exam.- difficult to visualize cervix, pt to see fire safety inspector, will let her know if pap needs repeated if no transformation zone Lymphedema-- referral to lymphedema clinic placed today I encourage you to wear compression stockings. I recommend 10-15 mmHg stockings to help with swelling. I recommend VIVE compression stockings, which can be purchased on [employer]. Elevate your legs as much as possible [...] needed. By signing my name below, I, Nickie Velásquezibyanet, attest that this documentation has been prepared [...] PHQ-9on 10-16-2021 PHQ-9 0-Not at all [facility] Work Phone: PHQ-9 1-Several days [facility] Hospital[facility] Work Phone: PHQ-9 Not difficult at all MP-Cali reyez [facility] Work Phone: Tobacco Screening.on 022 Tobacco use status [facility]PHS b) No [facility] Work Phone: Tobacco Screening. Adult MP-Sergey mansfield [facility] Work Phone: No Panel Informationon 09-17 [facility] Ophthalmic Eye Examon 2021 Ophthalmic Eye Exam DOCUMENT REVIEWED BY : Parmjit Howard DOCUMENT SIGNED ELECTRONICALLY BY Parmjit Howard ON 09/07/2021 01:34:26 PM [place] [address] [address] [place] [address] THIS DOCUMENT WAS CREATED ON: 09/07/2021 01:34:19 PM BY: Parmjit Taylor performed [id number] Exam Date: Tuesday, September 07, 2021 PATIENT [...] 20 DATE-TIME: 09/07/2021 1:15:27 PM 09/07/2021 1:15:27 MEDICAL OFFICE SECRETARY: collette murdock CONFRONTATION VF Full to count [...] CUP TO DISC: .55 .55 OPTIC DISC: Hohenwald and sharp Hohenwald and sharp VITREOUS: PVD Clear MACULA: Normal [...] 07 2021 1:34PM Eastern Standard Time Normal [facility] Ophthalmic Eye Examon 2021 Ophthalmic Eye Exam DOCUMENT REVIEWED BY : Parmjit Howard DOCUMENT SIGNED ELECTRONICALLY BY Parmjit Howard ON 06/29/2021 02:36:04 PM [id number] [place], [address] THIS DOCUMENT WAS CREATED ON: 06/29/2021 02:35:57 PM BY: Parmjit Ramirez performed [id number] Exam Date: Tuesday, June 29, 2021 PATIENT [...] 24 DATE-TIME: 06/29/2021 1:46:12 PM 06/29/2021 1:46:12 MEDICAL OFFICE SECRETARY: damon jose CONFRONTATION VF Full to count [...] CUP TO DISC: .55 .55 OPTIC DISC: Hohenwald and sharp Hohenwald and sharp VITREOUS: PVD Clear MACULA: Normal [...] 29 2021 2:36PM Eastern Standard Time Normal [facility] Blood Pressure Cuff Sizeon 0 06-13-2021 Blood Pressure Cuff Size Adult [facility] Work Phone: No Panel Informationon 06-13 Not at all - 0 [facility] Work Phone: Negative [facility] Work Phone: 0 1 [facility] Work Phone: Comment on above: Q1: 0, Q2: 0, Office Visit ([facility])on 06-13-2021 Follow-up visit Diagnoses/Problems Medication side effect (995.20) (T88.7XXA) Patient Discussion/Summary Reduce the medication by half. continue compression sock for the left leg. Telephone Visit in [address] Menchaca Provider Impressions Reviewed med in [facility] ; guidelines for dose reduction reviewed . Reviewed last neurology note. Recommend reducing dose slightly to possibly improve side effects . I let pt know the echo looked normal ; and MRI showed nothing new in area of her abdomen. 1 Encouraged her to follow up with Neurology.. Planning transfer of care to new Neurology at [facility].1 1 Amended By: Michelle Menchaca; Jun 17 [...] of Present Illness Pt of Dr. Tom, [facility] (Front Staff) Has hx of NF1 , [...] PHQ-9 Printed in Appendix #1 below. REYMUNDO-7 [id number] REYMUNDO-7 Total Score0 Feeling nervous, anxious or [...] Capsule Vitals Vital Signs Recorded: 13Jun2021 05:01PM Bixtpemjure82 F, Temporal Heart Rate89 Aeiuaqlk418, RUE, Sitting Tspscvsud91, RUE, Sitting Blood Pressure Cuff SizeAdult Height5 ft 3 in Vhjyha333 lb 2 oz BMI Kmubwqxvxc15.42 kg/m2 BSA Calculated1.71 O2 Kancqvdjzj54 Physical Exam Gen: alert, no distress, appears [...] chin, upper lip Results/Data PHQ-2 Adult Depression [id number] 05:88RP6Zcvexmpbwf, Provider Test NameResultFlagReference PHQ-2 Adult Depression Score0 Q1: 0, Q2: 0, PHQ-2 Adult Depression ScreeningNegative 1. Little interest or pleasure in doing thingsNot at all - 0 2. Feeling down, depressed, or hopelessNot at all - 0 Signatures Electronically signed by : Michelle Menchaca MD; Jun 17 (more content not included)... Normal [facility] Venous Duplex Ultra sound for DVTon 04-13-2021 [facility] Venous Duplex Ultrasound for DVT Please click on the link to view the study images Normal [facility] Surgery-LAB [facility] Work Phone: Ophthalmic Eye Examon 2020 Ophthalmic Eye Exam DOCUMENT REVIEWED BY : Parmjit Howard DOCUMENT SIGNED ELECTRONICALLY BY Parmjit Howard ON 03/30/2021 03:56:09 PM [id number] [place], [address] [phone] THIS DOCUMENT WAS CREATED ON: 03/30/2021 02:52:01 PM BY: Parmjit Sweeney performed ATMAB-Jjvm-xh Exam Date: Tuesday, March 30, 2021 PATIENT [...] 14 DATE-TIME: 03/30/2021 2:14:56 PM 03/30/2021 2:14:56 MEDICAL OFFICE SECRETARY: [id number] CONFRONTATION VF Full to count [...] CUP TO DISC: .55 .55 OPTIC DISC: Hohenwald and sharp Hohenwald and sharp VITREOUS: Clear Clear MACULA: Normal [...] [Catalytic activity/Vol] 42 U/L 0 - 215 [facility] Work Phone: Hepatitis C Antibody Teston 01-04-2021 Hepatitis C Antibody Test Non-Reactive See Below [facility] Work Phone: Comment on above: SOURCE: Reference Ra nge: NONREACTIVE Results from patients taking biotin supplements or receiving high-dose biotin therapy should be interpreted with caution due to possible interference with this test. Providers may contact their local laboratory for further information. Laboratory - Chemistry and C hemistry - challengeon 01-04-2021 Albumin BCP dye [Mass/Vol] 4.5 g/dL 3.4 - 5.0 [facility] Work Phone: ALP [Catalytic activity/Vol] 115 U/L above high threshold 33 - 110 [facility] Work Phone: ALT With P-5'-P [Catalytic activity/Vol] 14 U/L 7 - 45 [facility] Work Phone: Comment on above: Patients treated wit h Sulfasalazine may generate falsely decreased results for ALT. Anion gap [Moles/Vol] 11 mmol/L 10 - 20 [facility] Work Phone: AST With P-5'-P [Catalytic activity/Vol] 17 U/L 9 - 39 [facility] Work Phone: Bilirubin [Mass/Vol] 0.7 mg/dL 0.0 - 1.2 [facility] Work Phone: Calcium [Mass/Vol] 10.2 mg/dL 8.6 - 10.6 [facility] Work Phone: Chloride [Moles/Vol] 101 mmol/L 98 - 107 [facility] Work Phone: CO2 [Moles/Vol] 30 mmol/L 21 - 32 [facility] Work Phone: Creatinine [Mass/Vol] 0.69 mg/dL See Below [facility] Work Phone: Comment on above: Reference Range: 0.5 0 - 1.05 Glucose [Mass/Vol] 104 mg/dL above high threshold 74 - 99 [facility] Work Phone: Potassium [Moles/Vol] 4.9 mmol/L 3.5 - 5.3 [facility] Work Phone: Protein [Mass/Vol] 7.3 g/dL 6.4 - 8.2 [facility] Work Phone: Sodium [Moles/Vol] 137 mmol/L 136 - 145 [facility] Work Phone: Urea nitrogen [Mass/Vol] 10 mg/dL 6 - 23 [facility] Work Phone: Laboratory - Hematology and Cell countson 01-04-2021 Erythrocyte distribution width (RBC) [Ratio] 12.1 % See Below [facility] Work Phone: Comment on above: Reference Range: 11. 5 - 14.5 Hematocrit (Bld) [Volume fraction] 44.5 % See Below [facility] Work Phone: Comment on above: Reference Range: 36. 0 - 46.0 Hemoglobin (Bld) [Mass/Vol] 15.1 g/dL See Below [facility] Work Phone: Comment on above: Reference Range: 12. 0 - 16.0 MCHC (RBC) [Mass/Vol] 33.9 g/dL See Below [facility] Work Phone: Comment on above: Reference Range: 32. 0 - 36.0 MCV (RBC) [Entitic vol] 97 fL 80 - 100 [facility] Work Phone: Platelets (Bld) [#/Vol] 203 10*3/uL 150 - 450 [facility] Work Phone: RBC (Bld) [#/Vol] 4.60 {x10E12/L} See Below [facility] Work Phone: Comment on above: Reference Range: 4.0 0 - 5.20 WBC (Bld) [#/Vol] 5.3 10*3/uL 4.4 - 11.3 [facility] Work Phone: Lipid Panelon 01-04-2021 Cholesterol [Mass/Vol] 205 mg/dL above high threshold 0 - 199 [facility] Work Phone: Comment on above: . [...] guidelines reference: NCEP ATPIII Guidelines, PASQUALE 2001, 258:5006-97. Venipuncture immediately after or during the administration of Metamizole may lead to falsely low results. Testing should be performed immediately prior to Metamizole dosing. Cholesterol in HDL [Mass/Vol] 73.3 mg/dL [facility] Work Phone: Comment on above: . AGE VERY LOW LOW N ORMAL HIGH 0-19 Y < 35 < 40 40-45 ---- 20- 24 Y ---- < 40 >45 ---- >24 Y ---- < 40 40-60 >60. Cholesterol in LDL [Mass/Vol] 114 mg/dL above high threshold 0 - 99 [facility] Work Phone: Comment on above: . NEAR BORD AGE AKSHAT RABLE OPTIMAL HIGH HIGH VERY HIGH 0-19 Y 0 - 109 --- 110-129 >/= 130 ---- 20-24 Y 0 - 119 --- 120-159 >/= 160 ---- >24 Y 0 - 99 100-129 130-159 160-189 >/=190. Cholesterol.total/Ch olesterol in HDL [Mass ratio] 2.8 {ratio} [facility] Work Phone: Comment on above: REF VALUESDESIRABLE < 3.4HIGH RISK > 5.0 Triglyceride [Mass/Vol] 89 mg/dL 0 - 149 [facility] Work Phone: Comment on above: . [...] Panel 18 mg/dL 0 - 40 [facility] Work Phone: Medicare Annual Wellness Vis iton 01-04-2021 Medicare Annual Wellness Visit *Chief Complaint [...] Fall 2020 Shingrix-- none found (history of [place] outbreak) Pneumonia series-- N/A Mammo-- 11/2019 PAP-- [...] negative for complaint. 'Scores and Scales' PHQ-9 [id number] 12:00AM PHQ-9 Total Score (Please update problem [...] be better (more content not included)... Normal Touchworks No Panel Informationon 01-04 Not at all - 0 [facility] Work Phone: Minimal Anxiety [facility] Work Phone: 0 1 [facility] Work Phone: Comment on above: Over [...] than half the d ays - 2 [facility] Work Phone: Minimal Depression [facility] Work Phone: No response [facility] Work Phone: Negative [facility] Work Phone: 0.0 {/100_WBC} 0.0-0.0 [facility] Work Phone: >60 >60 [facility] Work Phone: Comment on above: CALCULATIONS OF CHALINO MATED GFR ARE PERFORMED USING THE MDRD STUDY EQUATION FOR THE IDMS-TRACEABLE CREATININE METHODS. CLIN CHEM 2007;53:766-72 Tobacco Screening.on Last menstrual period start date [id number] [facility] Work Phone: Tobacco use status CPHS b) No [facility] Work Phone: Tobacco Screening. Adult [facility] Work Phone: Vitamin E, Serumon 1 Alpha tocopherol [Mass/Vol] 13.8 mg/L 7.0-25.1 [facility] Work Phone: Gamma tocopherol [Mass/Vol] 0.8 mg/L 0.5-5.5 [facility] Work Phone: Comment on above: Reference intervals for alpha and gamma-tocopherol determined from[place] Health and Nutrition Examination Survey, 5004-8745.Individuals with alpha-tocopherol levels less than 5.0 mg/L areconsidered vitamin E deficient.Test(s) 999287-Xbbrjgv E(Alpha Tocopherol); 726919-Vubzlzs E(Gamma Tocopherol)was developed and its performance characteristics determinedby [employer]. It has not been cleared or approved by the Foodand Drug Administration. MRI Femur w/wo Contraston MRI Femur w/wo Contrast Normal [facility] Work Phone: MRI Pelvis w/wo Contraston 0 12-21-2020 MRA Pelvis vessels WO and W contrast IV Normal [facility] Work Phone: Echocardiogramon 09-19-2020 [place] [address] [phone], TRANSTHORACIC ECHOCARDIOGRAM REPORT Patient Name: SANDRA SANCHEZ Reading Physician: [id number] Madi Davalos MD Study Date: 09/19/2020 Referring Physician: [id number] MICHAEL STANTON MRN/PID: [id number] PCP: Accession/Order#: [id number] Department Location: [facility] Echo Lab Date of : 1970 Fellow: Gender: F Nurse: Admit Date: Computer Systems Consultant: Ronal Keller [facility] Admission Status: Outpatient Additional Staff: Height: 167.64 cm CC Report to: Weight: 56.70 kg Study Type: Echocardiogram BSA: 1.64 m2 Blood Pressure: 107 /93 mmHg Diagnosis/ICD: Z51.11-Encounter for antineoplastic chemotherapy Indication: Procedure/CPT: Echo Complete w Full Doppler-45043; Myocardial Strain Imaging-31086 Study Detail: The following Echo studies were [...] LA Area A2C: 8.8 cm2 LA [place] A4C: 4.2 cm LA [place] A2C: 4.1 cm LA Volume Index: 11.0 [...] 0.9 m/s (0.6-0.9m/s) PV Max P.9 mmHg [id number] Madi Davalos MD Electronically signed on 09/20/2020 at 10:34:27 AM Final Normal [facility] MRI Brain w/wo Contraston MR Brain WO and W contrast IV Interpreted by: RANDY LEHMAN12/29/19 09:10MRN: [id number] Name: SANDRA SANCHEZ STUDY:MRI BRAIN W/WO CONTRAST; [...] or hemorrhage. THIS EXAM[facility]ATION [facility] [place] signed by: RANDY LEHMAN 12/29/19 09:10 Normal [facility] Work Phone: MR Brain WO and W contrast IV [email or web address]?pat_id= [email or web address]_[email or web address] lease click on the link to view the study images Normal [facility] Work Phone: MRI Cervical w/wo Contraston 12-28-2019 MRI Cervical w/wo Contrast Interpreted by: RANDY LEHMAN12/29/19 13:38MRN: [id number] Name: SANDRA SANCHEZ STUDY:MR CERVICAL WO/W CONTRAST; MR L-SPINE WO/W CONTRAST; MR T-SPINE WO/W;12/28/2019 5:42 pm INDICATION:Neurofibromato sis diagnostic; Neurofibromatosis diagnostic /mrt kc13ml multihance. COMPARISON:MRI of the brachial plexus 12/11/2019 [id number]; [id number] ORDERING CLINICIAN:MICHAEL STANTON TECHNIQUE:MRI of cervical, thoracic, [...] the left anterior tubercle there is a U2ojbqjfafthtj/heterogene ously enhancing lesion. This measuresapproximately 1.3 by [...] degrees of neural foramen expansion. All lesions Y8pgrdsfhvelu/T2 hyperintense mildly heterogeneously enhancing which ischaracteristic for [...] cervical spine.4. THIS EXAMINATION [facility] [place] signed by: RANDY LEHMAN 12/29/19 13:38 Normal [facility] Work Phone: MRI Ankle w/wo Contraston MR Ankle WO and W contrast IV Interpreted by: PAVITHRA HOWARD12/11/19 11:04MRN: [id number] Name: SANDRA SANCHEZ STUDY:MRI ANKLE W/O-W CONTRAST; MRI TIBIA W/O-W CONTRAST; INDICATION:Neurofibromato sis diagnostic. COMPARISON:None [id number] ORDERING CLINICIAN:MICHAEL STANTON TECHNIQUE:Routine multiplanar multisequential MRI [...] signed by: PAVITHRA HOWARD 12/11/19 11:04 Normal [facility] Work Phone: MRI Brachial Plexus w/wo Con traston 12-11-2019 MR Brachial plexus WO and W contrast IV Interpreted by: PAVITHRA HOWARD12/11/19 10:42MRN: [id number] Name: BRANDY SANDRA STUDY:MRI SHOULDER W/O-W CONTRAST; MR B PLEXUS WO/W CONTRAST; INDICATION:Neurofibromato sis diagnostic. COMPARISON:None [id number] ORDERING CLINICIAN:MICHAEL STANTON TECHNIQUE:Routine multiplanar multisequential MRI [...] left paraspinal lesion at the level of J7abvtftzil approximately 3 cm in size. Numerous intercostal [...] signed by: PAVITHRA HOWARD 12/11/19 10:42 Normal [facility] Work Phone: MRI Knee w/wo Contraston MR Knee WO and W contrast IV Interpreted by: PAVITHRA HOWARD12/11/19 10:44Addendum BeginsMRN: [id number] Name: SANDRA SANCHEZ ADDENDUM:There is a voice recognition mistake in the above report. The phrase plaques from neurofibromas should be replaced byplexiform neurofibromas.Addendum EndsMRN: [id number] Name: SANDRA SANCHEZ STUDY:MRI KNEE W/O-W CONTRAST; [...] signed by: PAVITHRA HOWARD 12/11/19 10:44 Normal -[facility] Work Phone: MRI Shoulder w/wo Contraston 12-11-2019 MR Shoulder WO and W contrast IV Interpreted by: PAVITHRA HOWARD12/11/19 10:42MRN: [id number] Name: SANDRA SANCHEZ STUDY:MRI SHOULDER W/O-W CONTRAST; MR B PLEXUS WO/W CONTRAST; INDICATION:Neurofibromato sis diagnostic. COMPARISON:None [id number] ORDERING CLINICIAN:MICHAEL STANTON TECHNIQUE:Routine multiplanar multisequential MRI [...] left paraspinal lesion at the level of D6ylrjwmzrc approximately 3 cm in size. Numerous intercostal [...] signed by: PAVITHRA HOWARD 12/11/19 10:42 Normal [facility] Work Phone: MRI Tibia w/wo Contraston MRI Tibia w/wo Contrast Interpreted by: PAVITHRA HOWARD12/11/19 11:04MRN: [id number] Name: SANDRA SANCHEZ STUDY:MRI ANKLE W/O-W CONTRAST; MRI TIBIA W/O-W CONTRAST; INDICATION:Neurofibromato sis diagnostic. COMPARISON:None [id number] ORDERING CLINICIAN:MICHAEL STANTON TECHNIQUE:Routine multiplanar multisequential MRI [...] signed by: PAVITHRA HOWARD 12/11/19 11:04 Normal [facility] Work Phone: Mamm - Screening Mammogram w / Tomosynthesison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 Holt Van Nostran Work Phone: [facility] Work Phone: 10-16-2021 13:57-0400 Body surface area Derived from formula 1.67 m2 Ramandeep Holt Van Nostran Work Phone: [facility] Work Phone: 10-16-2021 13:57-0400 Body temperature 97.7 [degF] Ramandeep Yanet Van Nostran Work Phone: [facility] Work Phone: 10-16-2021 13:57-0400 Body weight 64 kg Ramandeep Yanet Van Nostran Work Phone: [facility] Work Phone: 10-16-2021 13:57-0400 Diastolic blood pressure 69 mm[Hg] Ramandeep Hotl Van Nostran Work Phone: [facility] Work Phone: 10-16-2021 13:57-0400 Heart rate 84 /min Ramandeep Holt Van Nostran Work Phone: [facility] Work Phone: 10-16-2021 13:57-0400 Respiratory rate 16 /min Ramandeep Holt Van Nostran Work Phone: [facility] Work Phone: 10-16-2021 13:57-0400 SaO2% (BldA) [Mass fraction] 97 % Ramandeep Holt Van Nostran Work Phone: [facility] Work Phone: 10-16-2021 13:57-0400 Systolic blood pressure 106 mm[Hg] Ramandeep Holt Van Nostran Work Phone: [facility] Work Phone: 08-22-2021 10:26-0400 Body height 164.7 cm Dre Monte MD Work Phone: [facility] 08-22-2021 10:26-0400 Body temperature 97.9 [degF] Dre Monte MD Work Phone: [facility] 08-22-2021 10:26-0400 Body weight 66.77 kg Dre Monte MD Work Phone: [facility] 08-22-2021 10:26-0400 Diastolic blood pressure 74 mm[Hg] Dre Monte MD Work Phone: [facility] 08-22-2021 10:26-0400 Heart rate 91 /min Dre Monte MD Work Phone: [facility] 08-22-2021 10:26-0400 Respiratory rate 20 /min Dre Monte MD Work Phone: [facility] 08-22-2021 10:26-0400 SaO2% (BldA) [Mass fraction] 100 % Dre Monte MD Work Phone: [facility] 08-22-2021 10:26-0400 Systolic blood pressure 119 mm[Hg] Dre Monte MD Work Phone: [facility] 06-13-2021 17:01-0500 Body height 160.02 cm Ramandeep Hyltontran Work Phone: [facility] Work Phone: 06-13-2021 17:01-0500 Body mass index (BMI) [Ratio] 26.42 kg/m2 Ramandeep Holt Van Nostran Work Phone: [facility] Work Phone: 06-13-2021 17:01-0500 Body surface area Derived from formula 1.71 m2 Ramandeep Holt Van Nostran Work Phone: [facility] Work Phone: 06-13-2021 17:01-0500 Body temperature 98 [degF] Ramandeep Holt Van Nostran Work Phone: [facility] Work Phone: 06-13-2021 17:01-0500 Body weight 67.65 kg Ramandeep Holt Van Nostran Work Phone: [facility] Work Phone: 06-13-2021 17:01-0500 Diastolic blood pressure 72 mm[Hg] Ramandeep Holt Van Nostran Work Phone: [facility] Work Phone: 06-13-2021 17:01-0500 Heart rate 89 /min Ramandeep Holt Van Nostran Work Phone: [facility] Work Phone: 06-13-2021 17:01-0500 SaO2% (BldA) [Mass fraction] 97 % Ramandeep Holt Van Nostran Work Phone: [facility] Work Phone: 06-13-2021 17:01-0500 Systolic blood pressure 105 mm[Hg] Ramandeep Yanet Van Nostran Work Phone: [facility] Work Phone: 01-04-2021 15:02-0400 Body mass index (BMI) [Ratio] 22.33 kg/m2 Ramandeep Yanet Van Nostran Work Phone: [facility] Work Phone: 01-04-2021 15:02-0400 Body surface area Derived from formula 1.59 m2 Ramandeep Holt Van Nostran Work Phone: [facility] Work Phone: 01-04-2021 15:02-0400 Body weight 57.18 kg Ramandeep Holt Van Nostran Work Phone: [facility] Work Phone: 01-04-2021 15:02-0400 Diastolic blood pressure 68 mm[Hg] Ramandeep Holt Van Nostran Work Phone: [facility] Work Phone: 01-04-2021 15:02-0400 Heart rate 104 /min Ramandeep Holt Van Nostran Work Phone: [facility] Work Phone: 01-04-2021 15:02-0400 SaO2% (BldA) [Mass fraction] 97 % Ramandeep Holt Van Nostran Work Phone: [facility] Work Phone: 01-04-2021 15:02-0400 Systolic blood pressure 94 mm[Hg] Ramandeep Holt Van Nostran Work Phone: [facility] Work Phone: 12-22-2019 14:32-0400 BMI (Body Mass Index) 23.03 kg/m2 Ismael Monzon [facility] Work Phone: 12-22-2019 14:32-0400 Body Temperature 98.1 [degF] Ismael Monzon [facility] Work Phone: 12-22-2019 14:32-0400 Body weight 58.97 kg Ismael Monzon [facility] Work Phone: 12-22-2019 14:32-0400 BP Diastolic 90 mm[Hg] Ismael Monzon [facility] Work Phone: 12-22-2019 14:32-0400 BP Systolic 163 mm[Hg] Ismael Monzon [facility] Work Phone: 12-22-2019 14:32-0400 BSA (Body Surface Area) 1.61 m2 Ismael Chandragers [facility] Work Phone: 12-22-2019 14:32-0400 Height 160.02 cm Ismael Chandragers [facility] Work Phone: 12-22-2019 14:32-0400 Pulse (Heart Rate) 92 /min Ismael Monzon [facility] Work Phone: 12-22-2019 14:32-0400 Pulse Oximetry 96 % Ismael Nicolás [facility] Work Phone: 12-22-2019 14:32-0400 Respiratory Rate 16 /min Ismael Monzon [facility] Work Phone: 12-22-2019 14:32-0400 9 1 Ismael Chandragers [facility] Work Phone: Comment on above: Pain Scale 10-04-2019 17:07-0400 BMI (Body Mass Index) 22.76 kg/m2 Ramandeep Jordan Melara [facility] Work Phone: 10-04-2019 17:07-0400 Body Temperature 98.3 [degF] Ramandeep Tom [facility] Work Phone: 10-04-2019 17:07-0400 Body weight 58.29 kg [facility]andeep Tom [facility] Work Phone: 10-04-2019 17:07-0400 BP Diastolic 81 mm[Hg] Ramandeep Tom [facility] Work Phone: 10-04-2019 17:07-0400 BP Systolic 119 mm[Hg] [facility]andeep Tom [facility] Work Phone: 10-04-2019 17:07-0400 BSA (Body Surface Area) 1.6 m2 Ramandeep Tom [facility] Work Phone: 10-04-2019 17:07-0400 Pulse (Heart Rate) 95 /min Ramandeep Tom [facility] Work Phone: 10-04-2019 17:07-0400 Pulse Oximetry 98 % Ramandeep Tom [facility] Work Phone: 10-04-2019 17:07-0400 Respiratory Rate 12 /min Ramandeep Tom [facility] Work Phone: Encounters Encounter Date Encounter Type Care Provider Facility Start: 12-17-2024 ambulatory [facility] Facility:[facility] Start: 11-28-2024 End: 11-28-2024 Emergency department patient visit Dr. Kartik Ha DO Work Phone: -Emergency Department Work Phone: Start: 11-17-2024 End: 11-17-2024 Office outpatient visit 15 minutes Michelle Menchaca MD Work Phone: [facility] Comment on above: Medication managemen t (Primary Dx); RUQ abdominal pain Start: 11-17-2024 End: 11-17-2024 ambulatory [facility] Start: 11-04-2024 End: 11-04-2024 Patient encounter procedure Dre Monte MD Work Phone: [facility] Comment on above: Nerve sheath tumor ( Primary Dx); Chronic pain due to neoplasm Start: 11-04-2024 End: 11-04-2024 ambulatory DRE MELL Facility:[facility] Start: 10-26-2024 End: 10-26-2024 ambulatory DRE LOBBOUS Facility:[facility] Start: 10-26-2024 End: 10-26-2024 Subsequent hospital visit by physician [employer] [facility] Wstr (I-Stat/1.5t) Work Phone: Radiology Comment on above: 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] Start: 10-22-2024 End: 10-22-2024 ambulatory [facility] Start: 10-22-2024 End: 10-22-2024 Subsequent hospital visit by physician Christina Junior [facility] Comment on above: RUQ abdominal pain Start: 10-15-2024 End: 10-15-2024 Office outpatient visit 25 minutes Michelle Menchaca MD Work Phone: [facility] Comment on above: RUQ abdominal pain ( Primary Dx); Insomnia, unspecified type; Constipation, unspecified constipation type; Lymphedema; Neurofibromatosis (Multi) Start: 10-15-2024 End: 10-15-2024 ambulatory [facility] Start: 06-15-2024 End: 06-15-2024 ambulatory No Primary Care Physician Facility:[facility] Start: 03-16-2024 End: 03-16-2024 Subsequent hospital visit by physician Keshawn Ok 2 [facility] Comment on above: Screening for cardio vascular condition Start: 03-16-2024 End: 03-16-2024 ambulatory [facility] Start: 03-01-2024 End: 03-01-2024 Subsequent hospital visit by physician Christina Junior [facility] 1 [facility] Comment on above: Other screening mamm ogram Postmenopausal estro gen deficiency Start: 03-01-2024 End: 03-01-2024 ambulatory [facility] Start: 02-03-2024 End: 02-03-2024 ambulatory RAMANDEEP E [facility] Start: 02-03-2024 End: 02-03-2024 Office outpatient visit 25 minutes Ramandeep Tom DO Work Phone: [facility] Comment on above: Insomnia, unspecifie d type (Primary Dx); Neurofibromatosis (Multi); Osteopenia of multiple sites; Neck stiffness; Cervicogenic headache; Other complicated headache syndrome; Screening for cardiovascular condition; Recurrent cold sores; Elevated LDL cholesterol level Start: 02-03-2024 End: 02-03-2024 ambulatory [facility] Start: 01-16-2024 End: 01-16-2024 ambulatory RAMANDEEP TAMARA LOBO Facility:[facility] Start: 01-16-2024 End: 01-16-2024 Patient encounter procedure Alondra Ponce APRN.CNP Work Phone: 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); Right foot drop; Myofascial pain; Neurofibromatosis (HCC); 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 on rotation to right; Cramp and spasm; Cervical dystonia Start: 11-12-2023 Orders Only Estelle simon MD Work Phone: [facility] Comment on above: Spasticity (Primary Dx); Chronic pain syndrome; Neurofibromatosis 2 (HCC) Start: 10-27-2023 Orders Only Dre Dawkins Work Phone: [facility] Comment on above: Urinary incontinence , unspecified type (Primary Dx); Nerve sheath tumor; Benign neoplasm of peripheral nerve sheath Start: 10-24-2023 Orders Only Dre Dawkins Work Phone: [facility] Comment on above: Nerve sheath tumor ( Primary Dx) Start: 10-23-2023 End: 10-23-2023 Patient encounter procedure Dre Monte MD Work Phone: [facility] Comment on above: Nerve sheath tumor ( Primary Dx); Chronic pain due to neoplasm; Benign neoplasm of peripheral nerve sheath Start: 10-21-2023 End: 10-21-2023 Subsequent hospital visit by physician Mri Radio [facility] W[facility] (I-Stat/1.5t) Work Phone: Radiology Comment on above: Neurofibromatosis (H CC) [Q85.00] Start: 08-19-2023 End: 08-19-2023 Patient encounter procedure Ramandeep Tom DO [facility] Comment on above: Medicare annual well ness visit, subsequent (Primary Dx); Encounter for screening for other disorder; Body mass index (BMI) of 23.0 to 23.9 in adult; Other screening mammogram; Insomnia, unspecified type; Screening for colon cancer; Neurofibromatosis ([facility]/HCC); Osteopenia of multiple sites; Postmenopausal estrogen deficiency; Elevated LDL cholesterol level Start: 01-14-2023 End: 01-14-2023 Office outpatient visit 15 minutes Ramandeep Tom DO Work Phone: [facility] Comment on above: Insomnia, unspecifie d type (Primary Dx); Medication management; Recurrent urinary tract infection; Yeast infection; Healthcare maintenance; Neurofibromatosis (CMS/HCC) Start: 01-14-2023 End: 01-14-2023 Patient encounter status Ramandeep Tom DO Work Phone: [facility] Work Phone: Start: 11-12-2022 End: 11-12-2022 ambulatory No Primary Care Physician [facility] Work Phone: Start: 11-12-2022 End: 11-12-2022 Patient encounter procedure No Primary Care Physician [facility], Specimen Work Phone: Start: 11-12-2022 End: 11-12-2022 Patient encounter procedure No Primary Care Physician Estelle [facility] Work Phone: Start: 10-15-2022 End: 10-15-2022 Patient encounter procedure Dre Monte MD Work Phone: [facility] Comment on above: Nerve sheath tumor ( Primary Dx); Benign neoplasm of peripheral nerve sheath; Chronic pain due to neoplasm Start: 10-08-2022 End: 10-08-2022 Subsequent hospital visit by physician Mri Radio [facility] (I-Stat/1.5t) Work Phone: Radiology Comment on above: 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] Start: 09-02-2022 ambulatory DO RAMANDEEP MELARA Facility:[id number] Start: 07-29-2022 End: 07-29-2022 Patient encounter procedure Ramandeep Holt Jordan Saritha DO Work Phone: [facility] Work Phone: Comment on above: Medicare annual well ness visit, subsequent (Primary Dx); Screening for colon cancer; Medication management; Insomnia, unspecified type; Breast cancer screening by mammogram; Neurofibromatosis (CMS/HCC); Osteopenia of multiple sites; Encounter for special screening examination Start: 07-15-2022 Telephone encounter Marina MESA [facility] Comment on above: Appointment Start: 07-03-2022 End: [...] Telephone encounter Dre lopez MD Work Phone: [facility] Comment on above: Results SOFYA first available Start: 05-15-2022 End: 05-16-2022 ambulatory DRE LOBBOUS Facility:[facility] Start: 05-15-2022 Telephone encounter Dre lopez MD Work Phone: [facility] Comment on above: Patient Update Start: 05-15-2022 End: 05-16-2022 ambulatory Christina De Anda CCC-ONLINE MARKETING DIRECTOR Work Phone: [facility] Comment on above: Nerve sheath tumor ( Primary Dx); Benign neoplasm of peripheral nerve sheath Start: 05-15-2022 End: 05-15-2022 Subsequent hospital visit by physician Gi/[facility] Work Phone: Radiology Comment on above: 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] Start: 05-10-2022 Refill Nikolai Giron MD Work Phone: [facility] Comment on above: Refill Request Start: 05-07-2022 AUDIT Ramandeep Lela Work Phone: [facility] Work Phone: Start: 05-06-2022 ambulatory DO RAMANDEEP MELARA Facility:[id number] Start: 04-29-2022 Refill Dre Dawkins Work Phone: [facility] Comment on above: Refill Request Start: 04-15-2022 Orders Only Dre Dawkins Work Phone: [facility] Comment on above: Nerve sheath tumor ( Primary Dx); Benign neoplasm of peripheral nerve sheath Start: 04-05-2022 ambulatory No Pcp Yovanyate Titi ERUCESise Start: 04-05-2022 Refill Dre Dawkins Work Phone: [facility] Comment on above: Refill Request Start: 03-28-2022 Refill Dre Dawkins Work Phone: [facility] Comment on above: Refill Request Start: 03-12-2022 End: 03-12-2022 Patient encounter procedure Dre Monte MD Work Phone: [facility] Comment on above: Nerve sheath tumor ( Primary Dx); Abnormal findings on diagnostic imaging of other specified body structures Start: 02-28-2022 Chart Update Ramandeep Yanet Biswas ostran Work Phone: [facility] Work Phone: Start: 02-26-2022 Refill Dre Lobbous M D Work Phone: [facility] Comment on above: Refill Request Start: 02-26-2022 AUDIT Ramandeeptereza Biswas ostran Work Phone: [facility] Work Phone: Start: 02-25-2022 ambulatory DO RAMANDEEP RUIZ N NOSTRAN Facility:[id number] Start: 02-04-2022 AUDIT Ramandeep Yanet Biswas ostran Work Phone: [facility] Work Phone: Start: 12-02-2021 Refill Dre Lobbous M D Work Phone: [facility] Comment on above: Refill Request Start: 11-14-2021 Telephone encounter Edith chavarria [facility] Work Phone: [facility] Comment on above: Genetic testing Start: 11-12-2021 AUDIT Ramandeep Yanet Ortega N ostran Work Phone: [facility] Work Phone: Start: 11-08-2021 AUDIT Ramandeep Ortega N ostran Work Phone: [facility] Work Phone: Start: 11-04-2021 Chart Update Ramandeep Yanet Biswas ostran Work Phone: [facility] Work Phone: Start: 11-03-2021 Refill Dre Lobbous M D Work Phone: [facility] Comment on above: Refill Request Start: 11-01-2021 End: 11-01-2021 Patient encounter procedure Edith Sanchez [facility] Work Phone: [facility] Comment on above: Benign neoplasm of p eripheral nerve sheath (Primary Dx) Start: 10-17-2021 Chart Update Ramandeep Leal Work Phone: [facility] Work Phone: Start: 10-16-2021 Office outpatient vi sit 25 minutes Ramandeep Tom Work Phone: [facility] Work Phone: Start: 10-06-2021 Refill Dre Dawkins Work Phone: [facility] Comment on above: Refill Request Start: 09-17-2021 End: 09-17-2021 Subsequent hospital visit by physician Mri Radio [facility] (I-Stat/1.5t) Work Phone: Radiology Comment on above: Benign neoplasm of p eripheral nerve sheath [D36.10] Start: 09-13-2021 AUDIT Ramandeep Leal Work Phone: [facility] Work Phone: Start: 08-22-2021 End: 08-22-2021 Patient encounter procedure Dre Monte MD Work Phone: [facility] Comment on above: Benign neoplasm of p eripheral nerve sheath (Primary Dx); Chronic pain due to neoplasm; Neuropathic pain Start: 07-31-2021 AUDIT Ramandeep Leal Work Phone: [facility] Work Phone: Start: 07-02-2021 Telephone encounter Ramandeep Melara Work Phone: [facility] Work Phone: Start: 06-29-2021 Patient encounter procedure Ramandeep Tom Work Phone: [facility] Work Phone: Start: 06-13-2021 Office outpatient vi sit 15 minutes Ramandeep Tom Work Phone: [facility] Work Phone: Start: 06-13-2021 Patient encounter procedure Ramandeep Holt Jordan Melara Work Phone: [facility] Work Phone: Start: 04-13-2021 Patient encounter procedure Ramandeep Holt Jordan Agostotran Work Phone: [facility] Work Phone: Start: 04-09-2021 AUDIT Ramandeep Yanet Biswas ostran Work Phone: [facility] Work Phone: Start: 03-30-2021 Patient encounter procedure Ramandeep Holt Jordan Melara Work Phone: [facility] Work Phone: Start: 01-16-2021 Patient encounter procedure Ramandeep Holt Jordan Melara Work Phone: [facility] Work Phone: Start: 01-05-2021 Chart Update Ramandeep Holt Jordan bermeo Work Phone: [facility] Work Phone: Start: 01-04-2021 Office outpatient vi sit 15 minutes Ramandeep Tom Work Phone: [facility] Work Phone: Start: 10-19-2020 Patient encounter procedure Ramandeeptereza Tom Work Phone: IE-Ckiqsgbfw-NCSKZ [place] [facility] Work Phone: Start: 01-04-2020 Patient [...] End: 11-24-2016 Emergency department patient visit Rigo Gsaton Facility:[facility] Patient encounter procedure Ramandeep Tom Work Phone: AG-Uosnmdzdv-ISYQQ [place] [facility] Work Phone: Procedures Date Procedure Procedure Detail Performing Clinician Start: 11-28-2024 Plain x-ray of hand Dr. Kartik Ha DO Work Phone: Start: 11-17-2024 Follow-up visit Follow-up MICHELLE MENCHACA Start: 10-26-2024 Mri spinal canal lumbar w/o & w/contr matrl Dre Monte MD Work Phone: Start: 10-15-2024 Urnls dip stick/tablet rgnt auto w/o microscopy Michelle Mencahca MD Work Phone: Start: 03-01-2024 Dxa bone density study 1/> sites axial skel Ramandeep Tom DO Work Phone: Start: 03-01-2024 Mammography [facility] 2 Start: 02-03-2024 Lipid 1996 panel - Serum or Plasma [facility] 1 Start: 12-01-2023 Colonoscopy Ramandeep Tom D O Work Phone: Start: 10-21-2023 End: 10-21-2023 Mri spinal canal thoracic w/o & w/contr matrl Dre Monte MD Work Phone: Start: 11-12-2022 Urine culture No Primary Care Physician Start: 10-08-2022 Mri pelvis w/o & w/contrast material Dre Monte MD Work Phone: Start: 09-02-2022 Mammography Ramandeep Burnett O Work Phone: Start: [...] Ramandeep Tom Work Phone: Start: 11-18-2019 Mammography Rmaandeep Burnett O Work Phone: Start: 10-04-2019 MG Breast screening Ramandeep Tom Start: 05-09-2017 Mammography Dre Monte MD Work Phone: Plan of Treatment Date Care Activity Detail Author Start: 11-30-2033 Screening for malign ant neoplasm of colon [facility] Start: 02-02-2029 Lipid panel [facility] Start: 02-02-2027 Diabetes Screening Diabetes Screenin [facility] Start: 10-16-2026 Screening for malign ant neoplasm of cervix [facility] Start: 01-04-2026 Lipid panel [facility] Start: 05-02-2025 COVID-19 Vaccine () COVID-19 Vaccine () [facility] Comment on above: Postponed from 01/17 (Other System Reasons) Start: 05-02-2025 COVID-19 Vaccine () COVID-19 Vaccine () [facility] Comment on above: Postponed from 01/17 (Other System Reasons) Start: 04-20-2025 End: 04-20-2025 Patient encounter procedure 04/20/2025 2:00 PM EST Office Visit [facility] [address] [place] [address] Michelle Menchaca MD [address] [facility] [place], [place] [phone] [facility] Start: 03-01-2025 Screening for malign ant neoplasm of breast [facility] Start: 01-17-2025 Influenza vaccination [facility] Start: 12-06-2024 End: 12-06-2024 Patient encounter procedure 12/06/2024 1:30 PM EDT Office Visit [facility] [address] [place] [address] Elayne Sow PA-C [address] [place] [address] Medical massage, physical therapy [facility] Comment on above: Medical massage, phy sical therapy Start: 11-28-2024 [facility] Start: 11-17-2024 End: 11-17-2024 Telemedicine consultation with patient 11/17/2024 3:30 PM EDT Telemedicine [facility] [address] [place] [address] Michelle Menchaca MD [address] [facility] [place], [place] [phone] [facility] Start: 11-15-2024 COVID-19 Vaccine (#1) COVID-19 Vacci ne (#1) [facility] Comment on above: Postponed from 04/03 (Other System Reasons) Start: 11-15-2024 Influenza vaccination Influenza Vacc ine (#1) [facility] Comment on above: Postponed from 01/17 (Patient Refused) Start: 11-04-2024 End: 11-04-2024 Patient encounter procedure 11/04/2024 3:00 PM EDT Office Visit [facility] [address] [place] [address] Dre Monte MD [address] [place] [address] MRI C, T, L, pelvis with contrast in 1 year in [place] followed by in person visit. [facility] Comment on above: MRI C, T, L, pelvis with contrast in 1 year in [place] followed by in person visit. Start: 10-16-2024 Screening for malign ant neoplasm of cervix [facility] Start: 10-15-2024 End: 10-22-2024 Bacteria identified in Urine by Culture [facility] Service Area Work Phone: Comment on above: Expected: 10/15/2024 (Approximate), Expires: 10/22/2024 Start: 10-15-2024 End: 10-15-2025 CBC W Auto Differential panel - Blood CBC and Auto Differential Lab Routine RUQ abdominal pain Expected: 10/15/2024 (Approximate), Expires: 10/15/2025 [facility] Work Phone: Comment on above: Expected: 10/15/2024 (Approximate), Expires: 10/15/2025 Start: 10-15-2024 End: 10-15-2025 Comprehensive metabolic 2000 panel - Serum or Plasma Comprehensive Metabolic Panel Lab Routine RUQ abdominal pain Expected: 10/15/2024 (Approximate), Expires: 10/15/2025 [facility] Work Phone: Comment on above: Expected: 10/15/2024 (Approximate), Expires: 10/15/2025 Start: 10-15-2024 End: 10-15-2025 US Abdomen RUQ US gallbladder Imaging Routine RUQ abdominal pain Expected: 10/15/2024, Expires: 10/15/2025 [facility] Work Phone: Comment on above: Expected: 10/15/2024 , Expires: 10/15/2025 Start: 08-19-2024 Medicare Annual Well ness Visit Medicare Annual Wellness Visit (AWV) [facility] Start: 08-05-2024 End: 08-05-2024 Patient encounter procedure 08/05/2024 1:00 PM EDT Office Visit [facility] [address] [place] [phone] Ramandeep Tom DO [address] [facility] [place] [address] [facility] Start: 03-16-2024 End: 03-16-2024 Patient encounter procedure 03/16/2024 11:00 AM EDT Appointment [address] [phone] [facility] Start: 03-01-2024 End: 03-01-2024 Patient encounter procedure [facility] Start: 02-27-2024 End: 08-18-2024 DXA Skeletal system Views for bone density XR DEXA bone density Imaging Routine Postmenopausal estrogen deficiency Expected: 02/27/2024, Expires: 08/18/2024 [facility] Work Phone: Comment on above: Expected: 02/27/2024 , Expires: 08/18/2024 Start: 02-19-2024 End: 01-15-2024 CBC panel - Blood by Automated count CBC Lab Routine Neurofibromatosis (CMS/HCC) Expected: 02/19/2024 (Approximate), Expires: 01/15/2024 [facility] Work Phone: Comment on above: Expected: 02/19/2024 (Approximate), Expires: 01/15/2024 Start: 02-19-2024 End: 01-15-2024 Comprehensive metabolic 2000 panel - Serum or Plasma Comprehensive Metabolic Panel Lab Routine Neurofibromatosis (CMS/HCC) Expected: 02/19/2024 (Approximate), Expires: 01/15/2024 [facility] Work Phone: Comment on above: Expected: 02/19/2024 (Approximate), Expires: 01/15/2024 Start: 02-19-2024 End: 01-15-2024 Lipid 1996 panel - Serum or Plasma Lipid Panel Lab Routine Neurofibromatosis (CMS/HCC) Elevated LDL cholesterol level Expected: 02/19/2024 (Approximate), Expires: 01/15/2024 [facility] Work Phone: Comment on above: Expected: 02/19/2024 (Approximate), Expires: 01/15/2024 Start: 02-03-2024 End: 02-02-2025 CBC W Auto Differential panel - Blood CBC and Auto Differential Lab Routine Insomnia, unspecified type Neurofibromatosis (Multi) Expected: 02/03/2024, Expires: 02/02/2025 [facility] Work Phone: Comment on above: Expected: 02/03/2024 , Expires: 02/02/2025 Start: 02-03-2024 End: 02-02-2025 Comprehensive metabolic 2000 panel - Serum or Plasma Comprehensive Metabolic Panel Lab Routine Insomnia, unspecified type Neurofibromatosis (Multi) Expected: 02/03/2024, Expires: 02/02/2025 [facility] Work Phone: Comment on above: Expected: 02/03/2024 , Expires: 02/02/2025 Start: 02-03-2024 End: 02-02-2025 CT for calcium scoring WO contrast and CTA W contrast IV Heart and coronary arteries CT cardiac scoring wo IV contrast Imaging Routine Screening for cardiovascular condition Expected: 02/03/2024, Expires: 02/02/2025 [facility] Service Area Work Phone: Comment on above: Expected: 02/03/2024 , Expires: 02/02/2025 Start: 02-03-2024 End: 02-02-2025 Lipid 1996 panel - Serum or Plasma Lipid Panel Lab Routine Elevated LDL cholesterol level Expected: 02/03/2024, Expires: 02/02/2025 [facility] Work Phone: Comment on above: Expected: 02/03/2024 , Expires: 02/02/2025 Start: 02-03-2024 End: 02-03-2024 Patient encounter procedure 02/03/2024 2:00 PM EDT Office Visit [facility] [address] [place] [address] Jordan Melara Ramandeep HoltDO [address] [facility] [place] [address] [facility] Start: 01-18-2024 Covid-19 Vaccine ( season) Covid-19 Vaccine () [facility] Start: 01-18-2024 Influenza vaccination [facility] Start: 01-06-2024 End: 01-06-2024 Patient encounter procedure 01/06/2024 1:45 PM EDT Office Visit [facility] [address] [place] [phone] Candido Chavez MD [address] [place] [address] [facility] Comment on above: BOTOX Start: 11-28-2023 End: 11-28-2023 ambulatory 11/28/2023 1:20 PM [facility]T [facility] [address] [place] [address] Mis Bethea, SAFETY INSPECTOR.NITRILES LAB TECHNICIAN [address] [place] [address] I was referred by Dr. Horan [facility] Comment on above: I was referred by Dr Regina Horan Start: 10-23-2023 End: 10-23-2023 Patient encounter procedure 10/23/2023 8:30 AM EDT Office Visit [facility] [address] [place] [address] Dre Monte MD [address] [id number] MRI Follow Up [facility] Comment on above: MRI Follow Up Start: 09-03-2023 Mammography Mammogram Screening [facility] Start: 09-03-2023 Screening for malign ant neoplasm of breast [facility] Start: 08-19-2023 End: 08-18-2024 Colonoscopy study Colonoscopy Screening; High Risk Patient; dad with hx of colon cancer Endoscopy Routine Screening for colon cancer Expected: 08/19/2023, Expires: 08/18/2024 [facility] Work Phone: Comment on above: Expected: 08/19/2023 , Expires: 08/18/2024 Start: 08-19-2023 End: 10-18-2024 DBT Breast - bilateral BI mammo bilateral screening tomosynthesis Imaging Routine Other screening mammogram Expected: 08/19/2023, Expires: 10/18/2024 [facility] Work Phone: Comment on above: Expected: 08/19/2023 , Expires: 10/18/2024 Start: 07-31-2023 Medicare Annual Well ness Visit Medicare Annual Wellness Visit (AWV) [facility] Start: 07-17-2023 End: 01-15-2024 CBC panel - Blood by Automated count CBC Lab Routine Neurofibromatosis (CMS/HCC) Expected: 07/17/2023 (Approximate), Expires: 01/15/2024 [facility] Work Phone: Comment on above: Expected: 07/17/2023 (Approximate), Expires: 01/15/2024 Start: 07-17-2023 End: 01-15-2024 Comprehensive metabolic 2000 panel - Serum or Plasma Comprehensive Metabolic Panel Lab Routine Neurofibromatosis (CMS/HCC) Expected: 07/17/2023 (Approximate), Expires: 01/15/2024 [facility] Work Phone: Comment on above: Expected: 07/17/2023 (Approximate), Expires: 01/15/2024 Start: 07-17-2023 End: 01-15-2024 Lipid 1996 panel - Serum or Plasma Lipid Panel Lab Routine Healthcare maintenance Expected: 07/17/2023 (Approximate), Expires: 01/15/2024 [facility] Work Phone: Comment on above: Expected: 07/17/2023 (Approximate), Expires: 01/15/2024 Start: 07-17-2023 End: 07-17-2023 Patient encounter procedure 07/17/2023 1:00 PM EST Office Visit [facility] [address] [place] [phone] Ramandeep Tom DO [address] [facility] [place] [address] [facility] Start: 05-19-2023 Behavioral Health Screening Behavioral Health Screening [facility] Start: 01-27-2023 End: 01-27-2023 Patient encounter procedure 01/27/2023 2:00 PM EDT Office Visit [facility] [address] [place] [phone] Faboila Gold MD [address] [facility] [place] [address] [facility] Start: 01-17-2023 Covid-19 Vaccine ( season) Covid-19 Vaccine ( season) [facility] Start: 01-17-2023 Influenza vaccination [facility] Start: 07-29-2022 End: 09-29-2023 BI mammo bilateral screening tomosynthesis BI mammo bilateral screening tomosynthesis Imaging Routine Breast cancer screening by mammogram Expected: 07/29/2022, Expires: 09/29/2023 [facility] Work Phone: Comment on above: Expected: 07/29/2022 , Expires: 09/29/2023 Start: 07-29-2022 End: 01-30-2024 Colonoscopy Colonoscopy Endoscopy Routine Screening for colon cancer Expected: 07/29/2022, Expires: 01/30/2024 [facility] Service Area Work Phone: Comment on above: Expected: 07/29/2022 , Expires: 01/30/2024 Start: 07-05-2022 Adult depression screening assessment DEPRESSION SCREENING [facility] Start: 06-25-2022 Patient encounter procedure MCRANNUAL, Provider: Ramandeep Tom, Status: Pen, Time: 1:30 PM [facility] Work Phone: Start: 05-31-2022 End: 05-23-2023 Echocardiography ECHO Cardiology Routine Other heart disorders in diseases classified elsewhere Neurofibromatosis, unspecified (HCC) Expected: 05/31/2022, Expires: 05/23/2023 [facility] Work Phone: Comment on above: Expected: 05/31/2022 , Expires: 05/23/2023 Start: 05-19-2022 DEPRESSION ASSESSMENT DEPRESSION ASS ESSMENT [facility] Start: 05-09-2022 PAP TESTING PAP TESTING [facility] Start: 05-09-2022 Screening for malign ant neoplasm of cervix [facility] Start: 03-12-2022 End: 05-12-2022 VITAMIN B1 (THIAMINE), WHOLE BLOOD [facility] Work Phone: Comment on above: Expected: 03/12/2022 , Expires: 05/12/2022 Start: 03-06-2022 EPVRETINA, Provider: Parmjit Howard, Status: Pen, Time: 1:00 PM EPVRETINA, Provider: Parmjit Howard, Status: Pen, Time: 1:00 PM [facility] Work Phone: Start: 01-17-2022 Influenza vaccination C [facility] Start: 10-16-2021 FUV, Provider: Ramandeep Tom, Status: Pen, Time: 2:00 PM FUV, Provider: Ramandeep Tom, Status: Pen, Time: 2:00 PM [facility] Work Phone: Start: 09-21-2021 EPVRETINA, Provider: Parmjit Howard, Status: Pen, Time: 1:00 PM EPVRETINA, Provider: Parmjit Howard, Status: Pen, Time: 1:00 PM PG-X[facility]ps[facility] [address] Work Phone: Start: 08-31-2021 EPVRETINA, Provider: Parmjit Howard, Status: Pen, Time: 1:00 PM EPVRETINA, Provider: Parmjit Howard, Status: Pen, Time: 1:00 PM XO-Dzlglba[facility]roke[facility]Y [facility] [address] Work Phone: Start: 07-31-2021 ECHO, Provider: CHRISTINA SCHMITT [facility] 2,MG CARD, Status: Pen, Time: 9:50 AM ECHO, Provider: CHRISTINA SCHMITT [facility] 2,MG CARD, Status: Pen, Time: 9:50 AM LZ-Gmrmlbcgijicr-K [facility] [address] Work Phone: Start: 06-29-2021 EPVDILATED, Provider : Parmjit Howard, Status: Pen, Time: 1:30 PM EPVDILATED, Provider: Parmjit Howard, Status: Pen, Time: 1:30 PM [facility] Work Phone: Start: 05-19-2021 DEPRESSION ASSESSMENT DEPRESSION [facility] Start: 05-03-2021 VIRFUVHOME, Provider : Michael Stanton, Status: Pen, Time: 10:30 AM VIRFUVHOME, Provider: Michael Stanton, Status: Pen, Time: 10:30 AM RN-Pikohknfe-Xypnr an Work Phone: Start: 05-03-2021 VIRFUVHOME, Provider : Digna Caruso, Status: Pen, Time: 10:30 AM VIRFUVHOME, Provider: Digna Caruso, Status: Pen, Time: 10:30 AM MG-Vascular Surgery-LAB [facility] Work Phone: Start: 04-03-2021 VIRFUVALDAIRE, Provider : Digna Caruso, Status: Pen, Time: 10:00 AM VIRFUVHOME, Provider: Digna Caruso, Status: Pen, Time: 10:00 AM YN-Ynjpqrdidqwad-P [facility] [address] Work Phone: Start: 03-09-2021 EPVRETINA, Provider: Parmjit Howard, Status: Pen, Time: 1:00 PM EPVRETINA, Provider: Parmjit Howard, Status: Pen, Time: 1:00 PM SH-Bujyvfpny-DPTCK [place] [facility] Work Phone: Start: 02-06-2021 VIRFUVALDAIRE, Provider : Digna Caruso, Status: Pen, Time: 10:30 AM VIRFUVHOME, Provider: Digna Caruso, Status: Pen, Time: 10:30 AM DS-Cvfbuudzv-Ndbon an Work Phone: Start: 01-16-2021 VIRFUVHOME, Provider : Digna Caruso, Status: Pen, Time: 9:00 AM VIRFUVHOME, Provider: Digna Caruso, Status: Pen, Time: 9:00 AM [facility] Work Phone: Start: 01-04-2021 Patient encounter procedure MCRANNUAL, Provider: Ramandeep Tom, Status: Pen, Time: 2:50 PM HW-Odcppstro-WDUWN [employer] Work Phone: Start: 11-17-2020 Screening for malign ant neoplasm of breast Mammogram [facility] Start: 2020 Pneumococcal vaccination Pneum ococcal Vaccine (1 of 1 - PCV) [facility] Start: 2020 Pneumococcal Vaccine : 50+ (1 of 1 - PCV) Pneumococcal Vaccine: 50+ (1 of 1 - PCV) [facility] Start: 2020 SHINGRIX VACCINE (1 of 2) SHINGRIX VACCINE (1 of 2) [facility] Start: 2020 Zoster Vaccines (1 of 2) Zoster Vacc joshua (1 of 2) [facility] Start: 05-09-2018 Mammography MAMMOGRAM [facility] Start: 10-02-2015 COLOGUARD (FIT-DNA) COLOGUARD (FIT-D NA) [facility] Start: 10-02-2015 Colonoscopy COLONOSCOPY [facility] Start: 10-02-2015 COLORECTAL CANCER SCREENING COLORECTAL CANCER SCREENING [facility] Start: 10-02-[address] COLONOGRAPHY [facility] Start: 10-02-2015 DIABET[facility]EN [facility] Start: 10-02-2015 Diabetes Screening Diabetes Screenin g [facility] Start: 10-02-2015 FECAL OCCULT BLOOD FECAL OCCULT BLOO D [facility] Start: 10-02-2015 Lipid 1996 panel - S abdulkadir or Plasma Lipid Screening [facility] Start: 10-02-2015 LIPID SCREEN LIPID SCREEN [facility] Start: 10-02-2015 Screening for malign ant neoplasm of colon [facility] Start: 10-02-2015 SIGMOIDOSCOPY SIGMOIDOSCOPY [facility] Start: 04-11-2011 HPV TESTING HPV TESTING [facility] Start: 04-11-2011 Screening for malign ant neoplasm of cervix HPV Testing [facility] Start: 01-17-1999 Medicare Annual Well ness Visit Medicare Annual Wellness Visit [facility] Start: 1992 DTaP/Tdap/Td Vaccine s (1 - Tdap) DTaP/Tdap/Td Vaccines (1 - Tdap) [facility] Start: 10-02-1991 Screening for malign ant neoplasm of cervix [facility] Start: 1989 Hepatitis B Vaccine (1 of 3 - 19+ 3-dose series) Hepatitis B Vaccine (1 of 3 - 19+ 3-dose series) [facility] Start: 1989 Hepatitis B Vaccines (1 of 3 - 19+ 3-dose series) Hepatitis B Vaccines (1 of 3 - 19+ 3-dose series) [facility] Start: 1989 Urine microalbumin profile [facility] Start: 1988 Anxiety Screening Anxiety Screening [facility] Start: 1988 COVID-19 Vaccine (#1) COVID-19 Vacci ne (#1) [facility] Start: 1988 Depression Screening Depression Scre ening [facility] Start: 1988 HEPATITIS C SCREENING HEPATITIS C [facility] Start: 1988 Hepatitis C screening Hepatitis C [facility] Start: 1988 HIV SCREENING HIV SCREENING [facility] Start: 1988 HIV screening HIV Screening [facility] Start: 1977 DTaP/Tdap/Td Vaccine s (1 - Tdap) DTaP/Tdap/Td Vaccines (1 - Tdap) [facility] Start: 10-02-1975 COVID-19 VACCINE (#1) COVID-19 VACCI NE (#1) [facility] Start: 10-02-1975 COVID-19 VACCINE (1) COVID-19 VACCIN E (1) [facility] Start: 10-02-1971 MMR Vaccines (1 of 1 - Standard series) MMR Vaccines (1 of 1 - Standard series) [facility] Start: 04-03-1971 COVID-19 VACCINE (#1) COVID-19 VACCI NE (#1) [facility] Start: 1970 HEPATITIS B (1 of 3 - 3-dose series) HEPATITIS B (1 of 3 - 3-dose series) [facility] Start: 1970 Hepatitis B Vaccine (1 of 3 - 3-dose series) Hepatitis B Vaccine (1 of 3 - 3-dose series) [facility] Start: 1970 Hepatitis B Vaccines (1 of 3 - 3-dose series) Hepatitis B Vaccines (1 of 3 - 3-dose series) [facility] Start: 1970 HIV screening HIV Screening [facility] Start: 1970 Medicare Annual Well ness Visit Medicare Annual Wellness Visit (AWV) [facility] Start: 1970 Screening for malign ant neoplasm of colon [facility] End: 03-16-2024 CT for calcium scoring WO contrast and CTA W contrast IV Heart and coronary arteries [facility] Service Area Work Phone: Comment on above: Once for 1 Occurrenc es starting 03/16/2024 until 03/16/2024 End: 03-01-2024 DBT Breast - bilateral [facility] Service Area Work Phone: Comment on above: Once for 1 Occurrenc es starting 03/01/2024 until 03/01/2024 End: 05-23-2023 ECG COMPLETE ECG COMPLETE ECG Routine Neurofibromatosis, unspecified (HCC) Neurofibroma Other heart disorders in diseases classified elsewhere 1 Occurrences starting 05/23/2022 until 05/23/2023 [facility] Work Phone: Comment on above: 1 Occurrences starti ng 05/23/2022 until 05/23/2023 End: 11-22-2024 MR Brain WO and W contrast IV MRI BRAIN WO/W IVCON Radiology Routine Nerve sheath tumor 1 Occurrences starting 10/24/2023 until 11/22/2024 [facility] Work Phone: Comment on above: 1 Occurrences starti ng 10/24/2023 until 11/22/2024 End: 11-25-2024 MR Cervical spine WO and W contrast IV MRI CERVICAL SPINE WO/W IVCON Radiology Routine 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 1 Occurrences starting 10/27/2023 until 11/25/2024 [facility] Work Phone: Comment on above: 1 Occurrences starti ng 10/27/2023 until 11/25/2024 End: 11-25-2024 MR Lumbar spine WO and W contrast IV MRI LUMBAR SPINE WO/W IVCON Radiology Routine 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 1 Occurrences starting 10/27/2023 until 11/25/2024 [facility] Comment on above: 1 Occurrences starti ng 10/27/2023 until 11/25/2024 End: 11-25-2024 MR Thoracic spine WO and W contrast IV MRI THORACIC SPINE WO/W IVCON Radiology Routine 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 1 Occurrences starting 10/27/2023 until 11/25/2024 [facility] Comment on above: 1 Occurrences starti ng 10/27/2023 until 11/25/2024 OOB Internal Tracking [employer] Counsel[employer] Tracking Lab Routine Medication management Insomnia, unspecified type 07/29/2022 3:10 PM [facility] Work Phone: Opiate/Opioid/Benzo Extended Prescription Compliance Opiate/Opioid/Benzo Extended Prescription Compliance Lab Routine Medication management Insomnia, unspecified type 07/29/2022 3:10 PM [facility] Work Phone: OPIATE/OPIOID/BENZO PRESCRIPTION COMPLIANCE OPIATE/OPIOID/BENZO PRESCRIPTION COMPLIANCE Lab Routine Medication management Insomnia, unspecified type 07/29/2022 3:10 PM [facility] Work Phone: Patient Education ED Elizabeth Mejia Closed [facility] Work Phone: End: 06-22-2023 Radiologic exam esophagus single contrast study XR ESOPHAGRAM Radiology Routine Zenker diverticulum 1 Occurrences starting 05/23/2022 until 06/22/2023 [facility] Work Phone: Comment on above: 1 Occurrences starti ng 05/23/2022 until 06/22/2023 End: 05-15-2023 Radiologic exam swallow function contrast study XR MODIFIED BARIUM SWALLOW W SPEECH THERAPY Radiology Routine 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 1 Occurrences starting 04/15/2022 until 05/15/2023 [facility] Work Phone: Comment on above: 1 Occurrences starti ng 04/15/2022 until 05/15/2023 SWAB COLLECTION SPECIMEN SWAB CO LLECTION SPECIMEN Lab Routine Benign neoplasm of peripheral nerve sheath Ordered: 11/14/2021 [facility] Work Phone: Comment on above: Ordered: 11/14/2021 End: 10-22-2024 US Abdomen RUQ [facility] Service Area Work Phone: Comment on above: Once for 1 Occurrenc es starting 10/22/2024 until 10/22/2024 Zolpidem [Mass/volum e] in Urine by Confirmatory method Zolpidem Confirmation, Urine Lab Routine Medication management Insomnia, unspecified type 07/29/2022 3:10 PM EDT [facility] Work Phone: [facility] Work Phone: [facility] NEGATED: Highlighted row has been ruled out! Planned Goals not documented [facility] Work Phone: Payers Date Payer Category Payer Self-pay [id number] 2022 Medicaid [id number] 2022 Medicaid [id number] 2016 Unknown 1999 Medicare MEDICARE MEDICAR E A AND B [id number] 1999-Present [phone] [address] [address] [place] [address] Medicare [id number] 1999 Medicare [id number] 1999 Medicare [id number] 1970 Unknown [id number] 1970 Unknown [id number] 1970 Unknown [id number] .[id number] 1970 Unknown [id number] .[id number] 1970 Unknown [id number] .[id number] 1970 Unknown [id number] 1970 Unknown [id number] .[id number] 1970 Unknown [id number] .[id number] 1970 Unknown [id number] [id number] 1970 Unknown [id number] [id number] 1970 Unknown [id number] [id number] Unknown [id number] Unknown [id number] Unknown [id number] Unknown [id number] Social History Date Type Detail Facility Assertion Tobacco smoking consumption unknown (finding) [facility] Work Phone: Start: 12-08-2013 End: 11-28-2024 Tobacco smoking status NHIS Never smoked tobacco [facility] Start: 08-22-2021 End: 11-04-2024 Alcohol intake Current non-drinker of alcohol (finding) [facility] Start: 1970 Sex Assigned At Not on file [facility] Start: 08-12-2021 End: 03-16-2024 Exposure to SARS-CoV-2 (event) Not sure [facility] Start: 1970 Sex Assigned At Female C [facility] Start: 12-08-2013 End: 07-29-2022 Tobacco use and exposure Smokeless tobacco non-user [facility] Work Phone: Start: 11-12-2022 Tobacco smoking status NHIS Unknown if ever smoked [facility] Start: 01-14-2023 End: 11-10-2024 Alcohol intake Ex-drinker (finding) [facility] Work Phone: Start: 01-14-2023 End: 11-17-2024 History of Social function [facility] Work Phone: Start: 01-14-2023 End: 11-17-2024 Tobacco use panel [facility] Work Phone: Start: 09-16-2021 Gender identity Identifies as female gender (finding) [facility] Work Phone: Start: 09-16-2021 Sexual orientation Heterosexual (fin ding) [facility] Work Phone: Adult Depression Screening Assessment 0 [facility] How often to you hav e a drink containing alcohol? Monthly or less [facility] Work Phone: NEGATED: Highlighted rowStart: JOAQUIN History of tobacco use Passive smoker [facility] Work Phone: Medical Equipment Procedure Code Equipment Code Equipment Origin al Text Equipment Identifier Dates fluorescein 1 mg 1 Strip (FLUORETS) Start: 01-16-2024 End: 01-17-2024 Functional Status Date Assessment Result Facility 11-17-2024 Generalized anxiety disorder 7 item (REYMUNDO-7) [facility] Work Phone: 11-17-2024 Patient Health Questionnaire 2 item (PHQ-2) [Reported] [facility] Work Phone: 10-16-2021 PHQ-9 [id number] In Remission (0-4) [facility] Work Phone: 01-04-2021 PHQ-9 Adult Depressi on Score PHQ-9 Adult Depression Score 2 [facility] Work Phone: Comment on above: Q1: 0, Q2: 0, Q3: 2, Q4: 0, Q5: 0, Q6: 0, Q7: 0, Q8: 0, Q9: 0, 10-04-2019 IO PHQ9 IO PHQ9 1 [facility] Work Phone: 11-10-2014 Are you deaf, or do you have serious difficulty hearing No 11/10/2014 7:06 PM Macrina Rico RN No [facility] Work Phone: 11-10-2014 Are you blind, or do you have serious difficulty seeing, even when wearing glasses No 11/10/2014 7:06 PM Macrina Rico RN No [facility] 11-10-2014 Do you have serious difficulty walking or climbing stairs No 11/10/2014 7:06 PM Macrina Rico RN No [facility] 11-10-2014 Do you have difficul ty dressing or bathing No 11/10/2014 7:06 PM EDMacrina Blanton RN No [facility] 11-10-2014 Because of a physica l, mental, or emotional condition, do you have difficulty doing errands alone such as visiting a physician's office or shopping No 11/10/2014 7:06 PM EDT Macrina Bajwa RN No [facility] Work Phone: NEGATED: Highlighted row Functional performance Functional status health issues are not documented Disease [facility] Work Phone: Mental Status Date Assessment Result Facility 11-10-2014 Because of a physical, mental, or emotional condition, do you have serious difficulty concentrating, remembering, or making decisions No 11/10/2014 7:06 PM EDMacrina Blanton RN No [facility] NEGATED: Highlighted row Cognitive function [Interpretation] Cognitive status health issues are not documented Disease [facility] Work Phone: Clinical Notes 08-22-2021 to 11-28-2024 Michelle Menchaca MD - 11/17/2024 3:30 PM Dre Nolasco MD - 11/04/2024 3:00 PM Morelia Edward OCCA - 11/04/2024 2:58 PM Soha Pink RT(R) - 10/26/2024 8:00 AM EDTPatient Instructions Note Date & Type Note Facility 11-28-2024 Radiology Diagnostic study note [facility] Imaging Services [address] [place] [id number] Hand Min 3 Views MR#: [id number] Acct: [id number] Name: SANDRA SANCHEZ Rep #: [id number] : 1970 F 54 From: Vanessa Jimenez MD PCP: Care Physician,No Primary Status: PRE ER Study:Hand Min 3 Views Date of Exam: Exam# [id number] Ordering Dr: Provider ,Luis Carlos P. PROCEDURE: HAND MIN 3 VIEWS 11/28/2024 REASON FOR EXAM: FINGER PAIN TECHNIQUE: HAND MIN 3 VIEWS COMPARISON: No FINDINGS: Acute, minimally displaced fracture, 4th digit middle phalangeal head, intra-articular extension. No dislocation. RAD/Hand Min 3 Views IMPRESSION: 4th digit injury. 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 Total of 6 months on [...] fluent, comprehension, naming, repetition intact. Short and penitentiary memory intact. CN: PERRL, EOMI without nystagmus, [...] sherry 13ml multihance. COMPARISON: None. ACCESSION NUMBER(S): [id number] ORDERING CLINICIAN: MICHAEL STANTON TECHNIQUE: The brain [...] or hemorrhage. 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 No vestibular schwannomas or optic pathway gliomas. MRI Spine Report MRI LUMBAR SPINE WO/W IVCON Exam End: 10/26/2024 9:09 AM (Final result) Narrative: * * *Final Report* * * DATE OF EXAM: Oct 26 2024 9:09AM [facility] 0304 - MRI LUMBAR SPINE WO/W [...] and assume there are 5 lumbar-type vertebrae. 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 Revised diagnostic criteria for neurofibromatosis type 1 and Legius syndrome: an international consensus recommendation. [employer] Med 23, 5191-5686 (2020). https://doi.org/10.1038/v22264-74 [email or web address]). Her most recent genetic testing is negative [...] or sooner if indicated Dre Monte MD, [facility] Staff Neuro-Oncologist [facility] I spent a total of 45 minutes on the date of the service which included preparing to see the patient, [id number] patient care, completing clinical documentation, obtaining and/or reviewing separately obtained history, performing a medically appropriate examination, counseling and educating the patient/family/caregiver, ordering medications, tests, or procedures, communicating with other HCPs (not separately reported), independently interpreting results (not separately reported), and communicating results to the patient/family/caregiver. Patient Care Team: Ramandeep Tom, DO as PCP - General (Family Medicine) Additional intake questions: Has the patient had fever, nausea, vomiting, diarrhea, constipation, fatigue for > 1 week? No Does the patient have a decreased appetite? No Does patient want to see a Safety Deposit Boxes Custodian? No (yes to any of above refer patient to schedulers for dietitian appointment) ) Does patient have any new or increased numbness or tingling of extremities? No Is patient interested in fertility information? No Does patient need any prescription refills? No Does patient have an advanced directive in place? No, Patient refused referral to Social Work or Resource Center documented in this encounter [facility] 11-04-2024 Note HNO ID: [id number] Author: DRE MONTE MD Service: ? 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 Total of 6 months on [...] Mitral valve prol (more content not included)... [facility] 11-04-2024 Note HNO ID: [id number] Author: MORELIA MCDONOUGH OCCA Service: ? Author Type: Appeals Reviewer Veteran Type: Progress Notes Filed: 11/08/2024 21:44 Note Text: Additional intake questions: Has the patient had fever, nausea, vomiting, diarrhea, constipation, fatigue for > 1 week? No Does the patient have a decreased appetite? No Does patient want to see a Safety Deposit Box[employer] Custodian? No (yes to any of above refer [...] Resource Center Electronically Signed By: INDY Sue [facility] 10-26-2024 History of Present illness Narrative Radiology [...] PATIENT PRESENTS WITH AN IMPLANTABLE OR ATTACHED PRODUCTION SORTER: No ALLERGIES: Reviewed and unchanged CONTRAST ALLERGY: NO. EXAM: MRI - CONTRAST TYPE: GROUP II PERIPHERAL IV DATA: Ambulatory: A peripheral IV was started in the Left antecubital site with a Angio cath: 22 gauge. RADIOLOGY DEPARTMENT: MR; Exam(s) Completed: Spine: Cervical spine, Thoracic spine, and Lumbar spine. Lavender Administered: No SIGNATURE: FIDENCIO Aguilar) PATIENT NAME: Sandra Sanchez DATE: October 26, 2024 TIME: 8:11 AM documented in this encounter [facility] 10-26-2024 Note HNO ID: [id number] Author: SOHA MORAN RT(R) Service: ? Author [...] PATIENT PRESENTS WITH AN IMPLANTABLE OR ATTACHED PRODUCTION SORTER: No ALLERGIES: Reviewed and unchanged CONTRAST ALLERGY: [...] DATE: October 26, 2024 TIME: 8:11 AM [facility] 10-15-2024 History of Present illness Narrative Subjective [...] Zolpidem Tartrate 10 Mg Tablet 90.00 90 Van I have personally reviewed the OARRS [...] lab , ultraS , and therapy at [facility]. Printed orders provided Zolpidem yoshi Menchaca MD documented in this encounter [facility] Work Phone: 10-15-2024 Instructions Michelle Menchaca MD [...] in 4 weeks documented in this encounter [facility] Work Phone: 02-03-2024 Evaluation + Plan note [...] lung nodules which are very common in [facility] fatty liver which is common in individuals that are overweight. There is also risk of radiation exposure. Follow up visit will be scheduled to review coronary artery calcium score, if needed. [facility] Work Phone: 02-03-2024 Miscellaneous Notes Associated Problem(s): [...] lung nodules which are very common in [facility] fatty liver which is common in individuals [...] pain regimen as per neurology. Continue with BioFreeze/[place] I recommend considering starting a magesium supplement. [...] try more expensive ($$$) magnesium with best TRAINING SPECIALIST (brain) penetration, for sleep, focus, mood - magnesium L threonate ,or threonine, or Magtein - 2000 mg, between 150 and 450 mg elemental magnesium in that 2000 mg depending on brand. This can be purchased online ([employer] has one brand for as little as [...] UDS completed 07/17/2023 documented in this encounter [facility] Work Phone: 02-03-2024 Evaluation + Plan note Associated Problem(s): Recurrent cold sores Reports outbreak 2-3 times per year, would like Valtrex to use as needed, rx with refills sent. [facility] Work Phone: 02-03-2024 Evaluation + Plan note [...] daily. Recheck DEXA recommended every 2 years. [facility] Work Phone: 02-03-2024 Evaluation + Plan note Associated Problem(s): Neurofibromatosis (Multi) Managed/followed by neurology and oncology @ [facility] - Dr. Monte Saw PM in past, [...] pain regimen as per neurology. Continue with BioFreeze/[place] I recommend considering starting a magesium supplement. [...] try more expensive ($$$) magnesium with best TRAINING SPECIALIST (brain) penetration, for sleep, focus, mood - magnesium L threonate ,or threonine, or Magtein - 2000 mg, between 150 and 450 mg elemental magnesium in that 2000 mg depending on brand. This can be purchased online ([employer] has one brand for as little as $30/mo). T [facility] Work Phone: 02-03-2024 Evaluation + Plan note [...] 02/03/2024 CSA completed 08/19/2023 UDS completed 07/17/2023 [facility] Work Phone: 02-03-2024 History of Present illness [...] Neurofibromatosis Managed/followed by neurology and oncology @ [facility] - Dr. Monte. Saw PM in past, [...] pain regimen as per neurology. Continue with BioFreeze/[place] I recommend considering starting a magesium supplement. [...] try more expensive ($$$) magnesium with best TRAINING SPECIALIST (brain) penetration, for sleep, focus, mood - magnesium L threonate ,or threonine, or Magtein - 2000 mg, between 150 and 450 mg elemental magnesium in that 2000 mg depending on brand. This can be purchased online ([employer] has one brand for as little as [...] lung nodules which are very common in [facility] fatty liver which is common in individuals [...] Attestation By signing my name below, I, Ciarra Smalls, Scribe attest that this documentation has been prepared under the direction and in the presence of Ramandeep Tom DO. documented in this encounter [facility] Work Phone: 02-03-2024 Instructions Ramandeep Tom DO [...] pain regimen as per neurology. Continue with BioFreeze/[place] I recommend considering starting a magesium supplement. [...] try more expensive ($$$) magnesium with best TRAINING SPECIALIST (brain) penetration, for sleep, focus, mood - magnesium L threonate ,or threonine, or Magtein - 2000 mg, between 150 and 450 mg elemental magnesium in that 2000 mg depending on brand. This can be purchased online ([employer] has one brand for as little as [...] lung nodules which are very common in [facility] fatty liver which is common in individuals that are overweight. There is also risk of radiation exposure. Follow up visit will be scheduled to review coronary artery calcium score, if needed. Order for PT in [place] for patient's neck Order for coronary artery calcium score - Korina will call you to set this up (booking out approx 4 mo) documented in this encounter [facility] Work Phone: 01-16-2024 Note HNO ID: [id number] Author: ALONDRA PONCE APRN.NITRILES LAB TECHNICIAN Service: ? Author Type: Nurse Practitioner Type: [...] history is provided by the patient. No hourly sign language interpreter was used. Eye Problem Review of Systems [...] okay with this care plan. Alondra Ponce APRN.[facility] 01-16-2024 History of Present illness Narrative [...] history is provided by the patient. No hourly sign language interpreter was used. Eye Problem Review of Systems [...] Alondra Ponce APRN.ALEKSANDR documented in this encounter [facility] 12-12-2023 Instructions Candido Chavez MD - 12/12/2023 1:52 PM EDT Consult to physical therapy, Home exercise program Prescription for R AFO. Can take to a medical supply store to have this filled, like [facility], or a store in your area ([employer]). Call before you go. This will help with foot drop and walking. Injections- trigger point injections vs. toxin injections Will ask Dr. Monte after safety concerns for injecting L shoulder Follow up - 2-3 weeks at [facility] Thank you! Dr. Chavez documented in this encounter [facility] 12-12-2023 History of Present illness Narrative Department [...] and eventually stopped when she presented to [facility] during 08/2021. 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 trigger point injections at [place] for chronic pain from neurofibromatosis. Reviewed mechanism [...] store Follow up - 2-3 weeks at [facility] Candido Chavez DO, MPH Physical Medicine and Rehabilitation Oncology [address] [employer] Initial pre-authorization Medication: Botox [id number] Dose (units every 90 days): Up to 400 units If initial pre-authorization; list treatments failed: PT/OT, Home Exercise Program, Baclofen CPT Codes: Limbs: 18290, 48952, 11438, 71386 Trunk: 10047, 79945 Neck: 57301 Face: 26037 EMG guidance/US guidance: 91469 / 01686 Limb(s) / area(s) injected: Trapezius 50 units Levator scapulae 25 units documented in this encounter [facility] 12-12-2023 Note HNO ID: [id number] Author: CANDIDO CHAVEZ MD Service: ? Author [...] and eventually stopped when she presented to [facility] during 08/2021. 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 [facility] 10-23-[facility]23 History of Present illness Narrative Images [...] problems; no burning, no frequency, no accidents ROLL TENDER - one child: age 27 - G1, [...] and eventually stopped when she came to [facility] August 2021. Total of 6 months on [...] SURGICAL HISTORY Procedure Laterality Date DELIVERY ONLY 1993 , low cervical EXC NEUROFIBROMA/NEUROLEMMOMA CUTAN NRV [...] fluent, comprehension, naming, repetition intact. Short and penitentiary memory intact. CN: PERRL, EOMI without nystagmus, [...] DATE OF EXAM: Oct 08 2022 11:28AM RADHA 0304 - MRI LUMBAR SPINE WO/W [...] and assume there are 5 lumbar-type vertebrae. Collective Bargaining Specialist: PSCB Transcribe Date/Time: Oct 08 2022 12:16P Dictated [...] an international consensus recommendation. Kindra Med 23, 4742-8438 (2020). https://doi.org/10.1038/u97365-43 1-33872-1). Her most recent genetic testing is negative [...] or sooner if indicated Dre Monte MD, [facility] Staff Neuro-Oncologist [facility] I spent a total of 45 minutes on the date of the service which included preparing to see the patient, bqqi-ke-tiif patient care, completing clinical documentation, obtaining and/or reviewing separately obtained history, performing a medically appropriate examination, counseling and educating the patient/family/caregiver, ordering medications, tests, or procedures, communicating with other HCPs (not separately reported), independently interpreting results (not separately reported), and communicating results to the patient/family/caregiver. Patient Care Team: Ramandeep Tom DO as PCP - General (Family Medicine) documented in this encounter [facility] 10-23-2023 Nurse Note Additional intake questions: Has the patient had fever, nausea, vomiting, diarrhea, constipation, fatigue for > 1 week? Yes, constipation (day of last BM yesterday), fatigue, and Provider Notified Does the patient have a decreased appetite? No Does patient want to see a Safety Deposit Boxes Custodian? No (yes to any of above refer patient to schedulers for dietitian appointment) ) Does patient have any new or increased numbness or tingling of extremities? Yes, hands more tingling and numbness. Is patient interested in fertility information? No Does patient need any prescription refills? No Does patient have an advanced directive in place? No, Patient referred to [facility] 10-23-2023 Nurse Note Additional intake questions: Has the patient had fever, nausea, vomiting, diarrhea, constipation, fatigue for > 1 week? Yes, constipation (day of last BM yesterday), fatigue, and Provider Notified Does the patient have a decreased appetite? No Does patient want to see a Safety Deposit Boxes Custodian? No (yes to any of above refer patient to schedulers for dietitian appointment) ) Does patient have any new or increased numbness or tingling of extremities? Yes, hands more tingling and numbness. Is patient interested in fertility information? No Does patient need any prescription refills? No Does patient have an advanced directive in place? No, Patient referred to [facility] documented in this encounter [facility] 10-21-2023 History of Present illness Narrative Radiology [...] PATIENT PRESENTS WITH AN IMPLANTABLE OR ATTACHED PRODUCTION SORTER: No ALLERGIES: Reviewed and unchanged CONTRAST ALLERGY: [...] TIME: 9:58 AM documented in this encounter [facility] 08-19-2023 Evaluation + Plan note Associated Problem(s): [...] daily. Recheck DEXA recommended every 2 years. [facility] Work Phone: 08-19-2023 Miscellaneous Notes Associated Problem(s): [...] problems every year. documented in this encounter [facility] Work Phone: 08-19-2023 Evaluation + Plan note Associated Problem(s): Neurofibromatosis (CMS/HCC) Managed/followed by neurology and oncology @ [facility]. Saw PM in past, no longer does, [...] consider increasing this dose if pain bothersome. [facility] Work Phone: 08-19-2023 Evaluation + Plan note [...] CSA completed today (08/19/2023) UDS completed 06/2023 T [facility] Work Phone: 08-19-2023 Evaluation + Plan note [...] for those with vision problems every year. [facility] Work Phone: 08-19-2023 History of Present illness [...] Neurofibromatosis Managed/followed by neurology and oncology @ [facility]. [...] completed today (08/19/2023) UDS completed 06/2023 Neurofibromatosis (CMS/HCC) Overview Managed/followed by neurology and [...] Ramandeep Tom DO. documented in this encounter [facility] Work Phone: 01-14-2023 Evaluation + Plan note [...] for infection. Can consider trial of an mzzx-wbv-dxbsrmp supplement called D-mannose. [facility] Work Phone: 01-14-2023 Miscellaneous Notes Associated Problem(s): [...] for infection. Can consider trial of an trtg-zfz-tqgrslk supplement called D-mannose. Associated Problem(s): Insomnia Stable, [...] UDS completed 07/2022. documented in this encounter [facility] Work Phone: 01-14-2023 Evaluation + Plan note [...] medication. CSA completed 07/2022. UDS completed 07/2022. [facility] Work Phone: 01-14-2023 History of Present illness [...] -NEUROFIBROMATOSIS Managed/followed by neurology and oncology @ [facility]. [...] for infection. Can consider trial of an nqrd-nkz-zpgcsxi supplement called D-mannose. Relevant Medications cephalexin (Keflex) [...] Ramandeep Tom DO. documented in this encounter [facility] Work Phone: 10-15-2022 History of Present illness [...] problems; no burning, no frequency, no accidents ROLL TENDER - one child: age 27 - G1, [...] and eventually stopped when she came to [facility] August 2021. Total of 6 months on [...] fluent, comprehension, naming, repetition intact. Short and penitentiary memory intact. CN: PERRL, EOMI without nystagmus, [...] and assume there are 5 lumbar-type vertebrae. Collective Bargaining Specialist: ROBERTS CHAPELB Transcribe Date/Time: Oct 08 2022 12:16P Dictated [...] an international consensus recommendation. Kindra Med 23, 8108-7514 (2020). https://doi.org/10.1038/w52826-66 1-19240-8). Her most recent genetic testing is negative [...] which included preparing to see the patient, ndzm-at-vvlt patient care, completing clinical documentation, obtaining and/or reviewing separately obtained history, performing a medically appropriate examination, counseling and educating the patient/family/caregiver and ordering medications, tests, or procedures. Dre Monte MD, [facility] Associate Staff [facility] Patient Care Team: Ramandeep Tom DO as PCP - General (Family Medicine) documented in this encounter [facility] 10-15-2022 Nurse Note Additional intake questions: Has the patient had fever, nausea, vomiting, diarrhea, constipation, fatigue for > 1 week? No Does the patient have a decreased appetite? No Does patient want to see a Safety Deposit Boxes Custodian? No (yes to any of above refer patient to schedulers for dietitian appointment) ) Does patient have any new or increased numbness or tingling of extremities? No Is patient interested in fertility information? No Does patient need any prescription refills? No Does patient have an advanced directive in place? No, Patient referred to [facility] documented in this encounter [facility] 10-08-2022 History of Present illness Narrative Radiology [...] Right antecubital site with a Angio cath: gauge. RADIOLOGY DEPARTMENT: MR; Exam(s) Completed: Lower MSK: Pelvis, bilateral Spine: Cervical spine, Thoracic spine, and Lumbar spine SIGNATURE: RT Jeff(R) PATIENT NAME: Sandra Sanchez DATE: October 08, 2022 TIME: 9:51 AM documented in this encounter [facility] 07-29-2022 Evaluation + Plan note Associated Problem(s): Osteopenia 02/2022 DEXA showed osteopenia femur (2/3 sites), normal spine (1/3) Repeat due 2023 Vitamin D and calcium supplements recommended. Weight bearing activity recommended. [facility] Work Phone: 07-29-2022 Miscellaneous Notes Associated Problem(s): [...] with present regimen. documented in this encounter [facility] Work Phone: 07-29-2022 Evaluation + Plan note Associated Problem(s): Medicare annual wellness visit, subsequent Breast cancer screening due, mammogram ordered 07/29/2022 Colon cancer screening due, colonoscopy ordered 07/28/2022 Cervical cancer screening completed 09/2021. Bone density screening completed 02/2022, due for repeat in 2023. Shingrix vaccines recommended, to be done at pharmacy. Labs recently done with specialist, deferred at this time. [facility] Work Phone: 07-29-2022 Evaluation + Plan note Associated Problem(s): Insomnia Stable, continue Ambien 10 mg daily CSA completed today. UDS ordered today. [facility] Work Phone: 07-29-2022 Evaluation + Plan note Associated Problem(s): Neurofibromatosis (CMS/HCC) Managed/followed by neurology and oncology @ [facility]. Saw PM in past, no longer does, did not find it beneficial. Taking Doxepin 100 mg + Lamictal 150 mg daily. Also prescribed medical marijuana for pain. Stable, will continue with present regimen. [facility] Work Phone: 07-29-2022 History of Present illness [...] as PCP - MSSP ACO Attributed Provider Patient states that she is doing well overall. She recently had labs done @ [facility] with specialist. She has seen thoracic surgeon [...] CSA completed today. UDS ordered today. Neurofibromatosis ([facility]/HCC) Overview Managed/followed by neurology and oncology @ [...] Ramandeep Tom DO. documented in this encounter [facility] Work Phone: 07-15-2022 Miscellaneous Notes Called pt and left a message with upcoming appointments. Also, sent [employer] message, set phone call reminder and mailed out an appointment reminder. documented in this encounter [facility] 07-03-2022 History of Present illness Narrative Radiology [...] 2022 8:17 AM documented in this encounter [facility] 06-24-2022 History of Present illness Narrative Images from the original note were not included. [facility] [place] SECTION OF HEART FAILURE and CARDIAC TRANSPLANT MEDICINE OUTPATIENT VISIT DATE June 25, 2022 OUTPATIENT VISIT TYPE Consultation PRIMARY CARE PHYSICIAN: Ramandeep Tom DO [address] [address] CHIEF COMPLAINT: Cardiac consult HISTORY OF PRESENT ILLNESS: Sandra Sanchez is a 51 y/o female from [place], [place], referred by Dr. 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 Patient denies any past cardiac problems. She previously followed at , where she was receiving a ?chemotherapy agent ?kusleo that required periodic echocardiogram monitoring. Patient states she was followed by a licensed loan officer assistant with serial echocardiograms that were reportedly all [...] of this patient. documented in this encounter [facility] 05-21-2022 Miscellaneous Notes Thoracic Surgery Consultation - review of records for appointment scheduling Received medical records from the office of Dre Leija [address] [facility] [address] Patient is being referred to Unspecified/First Available [...] Bartolome Cleveland RN documented in this encounter [facility] 05-17-2022 Miscellaneous Notes Time Frame: First available Orders: Consult to cardiothoracic surgery Provider: Any Referring: Lobbous Diagnosis: NF1 and Zenker diverticulum documented in this encounter [facility] 05-17-2022 Miscellaneous Notes Called Sandra, per Dr. [...] when eating and it goes down. Cheryl Ponce, RN documented in this encounter [facility] 05-15-2022 Note HNO ID: [id number] Author: Christina De Anda [facility]-ONLINE MARKETING DIRECTOR Service: ? Author Type: Speech Language Pathologist Type: Progress Notes Filed: 05/15/2022 5:03 PM Note Text: Episode Visit Count: Visit count could not be calculated. Make sure you are using a visit which is associated with an episode. Start of Care Date: 05/15/22 Onset Date: 05/19/21 Patient Identified by Name and Date of : Yes [facility] REHABIL[facility]ATION AND SPORTS THERAPY MODIFIED BARIUM SWALLOW [...] upright 90 degrees for all PO;Small Bite/Sip ONLINE MARKETING DIRECTOR Recommendations: Diet;Swallowing Precautions - no further Speech [...] Tested: Thin Barium Liquids;Mildly Thick Barium Liquids (Southgate Thick);Pureed with Barium Paste;Minced and Moist with [...] Level 4;Mildly Thick Liquids IDDSI Level 2 (Southgate Thick);Thin Liquids IDDSI Level 0 Education: Education Learning Preferences: Demonstration;Explanation;Perform ance Barriers: None Learning/Educational Needs: Compensatory Strategies;Diet Modification(s);Rehabilitation Techniques and Procedures;Swallowing Skills;MBSs results Education Provided: Yes, see treatment interventions for education provided Education Provided To: Patient Education Mode/Type: Demonstration;Explanation/Discuss ion;Performance;Teach Back;Video Response to Education/Teach Back: States/Identifies;Return Demonstration TREATMENT: Pe (more content not included)... [facility] 05-15-2022 Note HNO ID: [id number] Author: RT Ayah(R) Service: Radiology Author Type: Technologist Type: Progress [...] RT Ayah(R) May 15, 2022 2:06 PM [facility] 05-15-2022 History of Present illness Narrative Episode Visit Count: Visit count could not be calculated. Make sure you are using a visit which is associated with an episode. Start of Care Date: 05/15/22 Onset Date: 05/19/21 Patient Identified by Name and Date of : Yes [facility] REHABILITATION AND SPORTS THERAPY MODIFIED BARIUM SWALLOW [...] upright 90 degrees for all PO;Small Bite/Sip ONLINE MARKETING DIRECTOR Recommendations: Diet;Swallowing Precautions - no further Speech [...] Tested: Thin Barium Liquids;Mildly Thick Barium Liquids (Southgate Thick);Pureed with Barium Paste;Minced and Moist with [...] Level 4;Mildly Thick Liquids IDDSI Level 2 ([place]gate Thick);Thin Liquids IDDSI Level 0 Education: Education Learning Preferences: Demonstration;Explanation;Perform ance Barriers: None Learning/Educational Needs: Compensatory Strategies;Diet Modification(s);Rehabilitation Techniques and Procedures;Swallowing Skills;MBSs results Education Provided: Yes, see treatment interventions for education provided Education Provided To: Patient Education Mode/Type: Demonstration;Explanation/Discuss ion;Performance;Teach Back;Video Response to Education/Teach Back: States/Identifies;Return Demonstration TREATMENT: Performed Modified Barium Swallowing Study (93375). Evaluation: Modified Barium Swallow Evaluation (08398) Swallow / Dysphagia (97951): Skilled Intervention: Provided education related to a [...] provided this date. Billing: Modified Barium Swallow (53594) and Dysphagia Treatment (51211) Total time: 30 minutes Christina De Anda CCC-ONLINE MARKETING DIRECTOR documented in this encounter [facility] 05-15-2022 History of Present illness Narrative Radiology [...] 2022 2:06 PM documented in this encounter [facility] 05-15-2022 Miscellaneous Notes Called Sandra, since we [...] Cheryl Ponce RN documented in this encounter [facility] 04-05-2022 History of Present illness Narrative POPULATION HEALTH NAVIGATION OUTREACH Action/FYI [place] Support: Called pt to schedule an appt in Pain Management. Lvm for pt to call [phone] for scheduling. Pt identified by name and [...] 2022 9:16 AM documented in this encounter [facility] 03-12-2022 Nurse Note Additional intake questions: Has [...] or Resource Center documented in this encounter [facility] 03-12-2022 History of Present illness Narrative Images [...] problems; no burning, no frequency, no accidents ROLL TENDER - one child: age 27 - G1, [...] and eventually stopped when she came to [facility] August 2021. Total of 6 months on [...] fluent, comprehension, naming, repetition intact. Short and superintendent container terminal memory intact. CN: PERRL, EOMI without nystagmus, [...] diagnostic criteria of NF1 or mosaic NF1 (Nicole Aguayo, Sandrita Carroll., Nelsy Ambriz. et al. Revised diagnostic criteria for neurofibromatosis type 1 and Legius syndrome: an international consensus recommendation. Kindra Med 23, 6580-9888 (2020). https://doi.org/10.1038/d09970-99 1-55219-8). Her most recent genetic testing is negative [...] which included preparing to see the patient, trzb-jk-ibci patient care, completing clinical documentation, obtaining and/or reviewing separately obtained history, performing a medically appropriate examination, counseling and educating the patient/family/caregiver and ordering medications, tests, or procedures. Dre Monte MD, [facility] Associate Staff [facility] Patient Care Team: Ramandeep Tom DO as PCP - General (Family Medicine) documented in this encounter [facility] 11-14-2021 Miscellaneous Notes I called and spoke with Ms. Sanchez in follow up to her Genetics visit on 11/01/2021. I spoke with the genetic counselor at the [facility] genomics lab, and the slab lifting supervisor reviewed the variant that was identified in SMARCB1 in 2009. Based on current information, that variant would now be classified as likely benign. Therefore, this variant is unlikely to be related to Ms. Sanchez's tumors. I also learned that testing for the NF1 gene can be completed at [facility] at $0 rin-tk-bikzjg. Ms. Sanchez would like to proceed with this, and I will arrange for a saliva kit to be sent to her home. If testing on saliva is normal, we may consider blood testing for a different cell type. documented in this encounter [facility] 11-01-2021 History of Present illness Narrative [facility] Patient: Sandra Sanchez Date of : 1970 [facility] #[id number] Consultation requested by: Dr. Stefan Tariq, [facility] Adult Neurology Initial visit: 06/06/2009 (Sandra Dudley at that time) Most recent visit: 06/06/2009 Today's date: 11/02/2021 PRESENTING PROBLEM: Neurofibromatosis, unspecified PRESENT AT VISIT: Patient and mother RECORDS REVIEWED: - [facility] EMR including pertinent clinic notes, lab results, imaging reports, cardiac studies, other evaluations, and scanned documents. Scanned documents include NF2 testing (scan date 09/08/2009), INI1/SMARCB1 testing (scan date 10/02/2009), and her family history obtained at the last visit. - Records from [facility] available in CareEverywhere under [employer]. Available records are not comprehensive but include some imaging reports, echos, and a few clinic visits, but no Neurology visits. - 10/16/21 PCP visit summary - available in CareEverywhere under [employer] NOTE: - Ms. Sanchez met with Edith Sanchez MS, CRISTIANA (Certified Genetic Counselor) independent of the physician encounter. Please see that clinic summary for additional information. - Referring provider, PCP, and other pertinent providers will receive a copy of this clinic summary by [employer] or by standard mail. The patient will also receive a copy of this clinical summary. - 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 She was found to have painful tumors of the right arm, axilla, and chest at age 18. Some tumors were resected at [facility] in 1997 and found to be neurofibromas [...] her 2009 Genetics visit showed a single ytki-xh-mrgj (KENRICK) no skin-fold freckling, no lumps/bumps suggestive [...] reports that she switched neurologic care from [facility] to [facility] Neuro-Oncology (Dr. Stanton) and recently back to [facility] after her provider left in May 2021. [...] other tumors persists. She saw Dr. Tariq ([facility] General Neurology) in Jun 2021. He obtained copies of recent imaging, referred her back to Genetics, and referred her to Dr. Monte ([facility] Neuro-Oncology) to discuss Koselugo. Both Dr. Tariq [...] a few other evaluations are available in [facility], but records are not comprehensive. Neuro-Oncology notes [...] Genetics: - Prior genetics evaluation: 2010 at [facility] - one visit. No Genetics evaluations elsewhere. [...] to [facility] Clinic 18 years ago - september return. . - Seizures: No - Unequal [...] TESTING: - NF2 blood molecular analysis (2009, [facility]): Normal sequencing and del/dup analysis. Scan date 09/08/09. - INI1/SMARCB1 blood molecular analysis ([facility]): Intronic substitution c.1118+52A>G. Variant had not been seen before and does not affecting splicing. Deemed a variant of unknown significance. Scan date 10/02/2009. SELECT OTHER EVALUATIONS: [facility] studies noted below available in [facility] Pathology: - Biopsies obtained at [facility], read at [facility] Main. 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 These were no superficial tumors per patient. Final diagnosis: 1. 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 Skin multiple neurofibromas of arm and chest, right, excision (b) - peripheral nerve sheath tumor consistent with neurofibroma. Recent neuroimaging: - C-spine MRI, obtained with neck MRI (09/2021, [facility]): IMPRESSION: Likely stable predominantly prevertebral/paravertebral/extraf oraminal presumed nerve sheath tumors without convincing neural foraminal involvement nor extension into the spinal canal best appreciated on the MRI neck examination rather than the cervical spine examination given saturation band, scope of coverage, and distribution. - Brain MRI (12/2019, ): Normal. No signs of optic glioma, vestibular schwannoma or other tumor. See full report in [facility]. - Spine MRI (12/2019, ): IMPRESSION: 1. [...] VESSELS, BOWEL: All read as normal. See [facility] for full report. PERITONEUM/RETROPERITONEUM: There are numerous, [...] As above. * Right ankle (2013, [facility] [place]): Findings: Subtle nondisplaced horizontal fracture through the [...] difficulties SIGNIFICANT PAST SURGICAL HISTORY: - 1997, [facility]: Biopsies of right breast, arm, and [...] Neurology, and Dr. Monte, Neuro-Oncology, both at [facility]. - Ophthalmology: Dr. Conrad[ at . Wishes to switch to [facility]. SOCIAL HISTORY: - Lives in [place] alone. - Occupation: Not working due to medical issues - Education: Associates degree - Medical marijuana due to pain. FAMILY HISTORY - Patient's ethnicity: Senegalese/Maldivian - No known -Indian, Mediterranean, /Tristanian, Turkmen-[place]/Cajun, or Ashkenazi Taoism ancestry unless noted above. - Parental consanguinity: No A four generation pedigree was collected by Edith Sanchez MS, [facility] (Certified Genetic Counselor) at the patient's separate genetic counseling encounter in 2009. Pedigree was updated today by Ms. Sanchez and will be scanned into [employer]. I reviewed the family history and made [...] includes: Children: 28 YO daughter. Healthy. One dwnb-wu-vubx spot but no known skin-fold freckling, lumps/bumps, [...] cancer. * Her maternal grandfather has a cmcvi-pwgzw-qgetp said to have NF1. Unclear what this [...] mental retardation, infertility, recurrent loss, stillbirth, unexplained infant , and consanguinity . REVIEW OF SYSTEMS - Also see HPI/Aksf-lb-aixk Checklist: - Constitutional: Gained 20 lb on [...] and cooperative. - Integument/Breasts: * CALs: Typical yptc-yu-djuz of left buttock, 3.5 x 1.5 cm. [...] and hearing grossly intact with normal voice. Enders tickle on hands and feet. UE tone [...] NF1 CLINICAL DIAGNOSTIC CRITERIA (Legius et al, 202): A: The diagnostic criteria for NF1 are [...] CRITERIA FOR MOSAIC NEUROFIBROMATOSIS TYPE 1 (NF1) (Legius et al., 2021) The diagnostic criteria for mosaic NF1 are [...] Exam today is notable for one typical slsz-yd-dzgy and perhaps one other lightly pigmented lzap-da-jxqt. She did not have skin-fold freckling or [...] High Risk Breast Cancer Clinic here at [facility]. - Given the 2% chance of congenital [...] me to receive records from since not [facility] records were not comprehensive. We will also check on updates on her SMARCB1 variant. Ms. Sanchez indicated she understood the information discussed today and that her questions had been answered. RECOMMENDATIONS: This information was discussed at length with Ms. Sanchez. I recommend the following: - Genetic testing: * NF1 analysis on blood. She is interested if covered by insurance or if vff-pl-kallkn cost is low. We will look into this and get back her. We would probably need to use [employer] to keep costs low. * If any [...] I could find records was in 11/2019 ([facility]). Appointment line number provided. Ophthalmology - wishes to switch to [facility] provider. Appointment line number provided. - Records release signed for records. Although some records are available in [facility], they are far from comprehensive. - At least annual Neurology and Neuro-Oncology evaluations. Ms. Sanchez has already established care with [facility] providers. - Given large tumor load, PET scan for malignant transformation of plexiforms may be considered - see discussion in Rick et al. Decision deferred to Neuro-Oncology. - Annual PCP visit with attention to BP, vertebral alignment, and other issues discussed in Guidelines. Suggest Vit D status be followed given increased risk of osteopenia in NF1. - Ms. Sanchez had a fibular fracture in 2013 with no known history of fracture. An right foot X-ray in 2002 at [facility] was read as showing osteopenia, but osteopenia [...] of Genetics Clinics is available on the [employer] web site, www. acmg.net; select Directories; select [facility]. MEDICAL REFERENCES: - Richard Fortune. Neurofibromatosis 1 in GeneReviews. Last update 2021Sep 06. Currently available at https://pubmed.ncbi.nlm.nih.gov/2 6853546/ - Dede et al. Revised diagnostic criteria for neurofibromatosis type 1 and Legius syndrome: an international consensus recommendation. Kindra Med 2020;23(8):7109-2697. PMID: 60598969 Currently available at https://www.ncbi.nlm.nih.gov/pmc/ articles/EOS6710132/ - Terri Turpin et al. Updated diagnostic criteria and nomenclature for neurofibromatosis type 2 and schwannomatosis: An international consensus recommendation. Kindra Med. 2021 8;W4717-6909(10)49736-0. doi: 10.1016/j.gim.202.05.007. Online ahead of print. Currently available at https://www.sciencedirect.com/sci ence/article/pii/L495651775657283 0 - Rick Duenas al. Care of Adults with Neurofibromatosis type 1: A Clinical Practice Resource of the [employer] (ACMG). Kindra Med. 2018 Nov;20(7):671-682. Currently available at: https://www.nature.com/articles/g ix226843.epdf?author_access_token =[email or web address] [id number] MATERIAL PROVIDED TO PATIENT: - Diagnostic guidelines [...] of phenotype and possible testing (2 hours dadh-rv-zisl), reviewing separately-obtained family history, ordering consultations, and partial documentation of visit. Additional time was spent after the day of visit on records review and documentation. Fartun Patel M.D. [facility] The [address]/[place] [address] Office: [phone] Office fax: [phone] Clinic fax: [phone] Appointments: [phone] or toll free [phone] Genetic counselor working with patient and/or family: Edith Sanchez MS, [facility] (Certified Genetic Counselor) Office: [phone] CC by [facility]: Dr. Tariq, Adult Neurology Dr. Monte, Neuro-Oncology Otoniel Sanchez MS, [facility] Terri Sorto, [facility] CC by Henrry: Sandra Sanchez CC by US mail: Dr. Ramandeep Tom [address] [facility], [address] [address] Enclosure: NF1 care guidelines referenced above documented in this encounter [facility] 11-01-2021 History of Present illness Narrative Patient [...] [facility]): Normal - SMARCB1 on blood (2009, [facility]): variant of unknown significance c.1118+52A>G. SOCIAL HISTORY: Lives in [place] on her own, with 2 cats Employment: Not currently working due to health issues FAMILY HISTORY: - Patient's ethnicity: Senegalese/Maldivian - No known -Indian, Mediterranean, /Tristanian, Turkmen-[place]/Cajun, or Ashkenazi Taoism ancestry unless noted above. - Parental consanguinity: [...] at 74 from cancer. Grandfather has a poxkn-yjeqc-ptaov reported to have NF1. Father: 78 years old, 5'8 tall. Medical history notable for mitral valve prolapse and colon cancer. Paternal relatives: Grandmother in her 60's from complications of a bowel obstruction. Grandfather in his 60's from emphysema. The remainder of Ms. Sanchez's reported family history is negative for known or suspected genetic disease, defects, developmental delay/intellectual disability, infertility, recurrent loss, and unexplained infant .. GENETIC COUNSELING RISK ASSESSMENT AND DISCUSSION: [...] the typical cutaneous findings of NF1. Ms. Sancehz underwent testing for the NF2 and SMARCB1 [...] transition all of her care back to [facility], so Dr. Patel will also refer her to Ophthalmology and the Breast Center. FOLLOW-UP PLAN: 1. Test for NF1 after determination of cost 2. I will ask [facility] to review previous variant in SMARCB1 3. Release signed to obtain records from (MRI, echo, EMG, ophthalmology, mammogram) 4. Referrals to Breast Center, Ophthalmology 5. Follow up in Genetics in approximately [address] Patel's note for any additional recommendations. The patient was seen for a total of 30 minutes, greater than 50% of which was spent syoa-jn-baok counseling. This plan is being carried out per Dr. Patel's recommendations. Edith Sanchez MS, [facility] Licensed Genetic Counselor [facility] CC: Dr. Chandni Barrios, corporate administrator CC: Sandra Sanchez [facility] Ramandeep Tom, [address] [phone] documented in this encounter [facility] 09-17-2021 History of Present illness Narrative Radiology [...] Cervical spine SIGNATURE: RT Jeff(R) PATIENT NAME: Sanrda Schwartzdarlene DATE: September 17, 2021 TIME: 2:07 PM documented in this encounter [facility] 08-22-2021 Nurse Note Additional intake questions: Has the patient had fever, nausea, vomiting, diarrhea, constipation, fatigue for > 1 week? Yes, constipation (day of last BM 08/22/2021) and diarrhea ( 1 times in last 24 hours) Does the patient have a decreased appetite? No Does patient want to see a [employer] Custodian? No (yes to any of above refer patient to schedulers for dietitian appointment) ) Does patient have any new or increased numbness or tingling of extremities? Yes, hands, feet, legs Is patient interested in fertility information? No Does patient need any prescription refills? Yes, LIP notified Does patient have an advanced directive in place? No, Patient referred to [facility] documented in this encounter [facility] 08-22-2021 History of Present illness Narrative Images [...] problems; no burning, no frequency, no accidents ROLL TENDER - one child: age 27 - G1, [...] fluent, comprehension, naming, repetition intact. Short and penitentiary memory intact. CN: PERRL, EOMI without nystagmus, [...] an international consensus recommendation. Kindra Med 23, 1498 7777 (2020). https://doi.org/10.1038/j50319-78 1-58006-8). Her genetic testing was done in the [...] which included preparing to see the patient, aatx-om-hppo patient care, completing clinical documentation, obtaining and/or reviewing separately obtained history, performing a medically appropriate examination, counseling and educating the patient/family/caregiver and ordering medications, tests, or procedures. Dre Monte MD 10:03 AM 08/22/2021 Brain Tumor Neuro[facility] Cc: Garcia Diaz MD PCP Stefan Tariq MD [facility] Fartun Patel MD [facility] Robbie Thompson DO, PhD [facility] documented in [facility] Diagnosis Benign neoplasm of peripheral nerve sheath- Primary Chronic pain due to neoplasm Neuropathic pain Neuralgia, neuritis, and radiculitis, unspecified [facility] Diagnosis Benign neoplasm of peripheral nerve sheath [facility] Diagnosis Benign neoplasm of peripheral nerve sheath- Primary [facility] Diagnosis Benign neoplasm of peripheral nerve sheath- Primary [facility] Diagnosis Benign neoplasm of peripheral nerve sheath- Primary [facility] 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, soft tissue, and skin Abnormal findings on diagnostic imaging of other specified body structures [facility] Diagnosis Nerve sheath tumor- Primary [...] of esophagus, acquired [facility] Diagnosis Neurofibromatosis, unspecified (HCC)- Primary Neurofibroma Other benign neoplasm of connective and other soft tissue of unspecified site Other heart disorders in diseases classified elsewhere [facility] Diagnosis Other heart disorders in diseases classified elsewhere- Primary Neurofibromatosis, unspecified (HCC) [facility] Diagnosis Shortness of breath- Primary Neurofibromatosis, unspecified (HCC) Zenker's diverticulum Diverticulum of esophagus, acquired [facility] Diagnosis Zenker diverticulum Diverticulum of esophagus, acquired [facility] 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, soft tissue, and skin Benign neoplasm of peripheral nerve sheath Chronic pain due to neoplasm [facility] Diagnosis Onset Date Resolution Status UTI (urinary tract infection) acute [facility] Work Phone: Evaluation note* Diagnosis Insomnia, unspecified type- Primary Medication management Recurrent urinary tract infection Urinary tract infection, site not specified Yeast infection Healthcare maintenance Neurofibromatosis (CMS/HCC) Neurofibromatosis, unspecified documented in this encounter [facility] Work Phone: Evaluation note* Diagnosis 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, soft tissue, and skin Benign neoplasm of peripheral nerve sheath Chronic pain due to neoplasm Neuropathic pain Neuralgia, neuritis, and radiculitis, unspecified [facility] Diagnosis Medicare annual wellness visit, subsequent- Primary Encounter for screening for other disorder Body mass index (BMI) of 23.0 to 23.9 in adult Other screening mammogram Insomnia, unspecified type Screening for colon cancer Special screening for malignant neoplasms, colon Neurofibromatosis (CMS/HCC) Neurofibromatosis, unspecified Osteopenia of multiple sites Postmenopausal estrogen deficiency Elevated LDL cholesterol level documented in this encounter [facility] Work Phone: Evaluation note* Diagnosis Neurofibromatosis (HCC) Neurofibromatosis, unspecified [facility] Diagnosis Neurofibromatosis (HCC) Neurofibromatosis, unspecified [facility] 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, soft tissue, 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 [facility] 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, soft tissue, and skin [facility] Diagnosis Urinary incontinence, unspecified type- Primary 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, soft tissue, and skin Benign neoplasm of peripheral nerve sheath [facility]* Diagnosis Spasticity- Primary Abnormal involuntary movements Chronic pain syndrome Neurofibromatosis 2 (HCC) Neurofibromatosis, Type 2 (acoustic neurofibromatosis) [facility] Diagnosis 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 Benign neoplasm of spinal cord Right foot drop Other acquired deformity of ankle and foot Myofascial pain Mylagia and myositis, unspecified Neurofibromatosis (HCC) Neurofibromatosis, unspecified 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 on rotation to right Cramp and spasm Cervical dystonia Spasmodic torticollis [facility] Diagnosis Irritation of eye- Primary Abrasion of left cornea, initial encounter documented in this encounter [facility] note* Diagnosis Medicare annual wellness visit, subsequent- [...] Other screening mammogram documented in this encounter [facility] Work Phone: Evaluation note* Diagnosis Medicare annual [...] Postmenopausal estrogen deficiency documented in this encounter [facility] Work Phone: Evaluation note* Diagnosis Medicare annual [...] unspecified cardiovascular conditions documented in this encounter [facility] Work Phone: Evaluation note* Diagnosis Medicare annual wellness visit, subsequent- Primary Screening for colon cancer Special screening for malignant neoplasms, colon Medication management Insomnia, unspecified type Breast cancer screening by mammogram Neurofibromatosis (CMS/HCC) Neurofibromatosis, unspecified Osteopenia of multiple sites Encounter for special screening examination documented in this encounter [facility] Work Phone: Evaluation note* Diagnosis Medicare annual [...] LDL cholesterol level documented in this encounter [facility] Work Phone: Evaluation note* Diagnosis Medicare annual [...] (Multi) Neurofibromatosis, unspecified documented in this encounter [facility] Work Phone: Evaluation note* Diagnosis Medicare annual [...] right upper quadrant documented in this encounter [facility] Work Phone: Evaluation note* Diagnosis 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, soft tissue, and skin Benign neoplasm of peripheral nerve sheath [facility] Diagnosis 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, soft tissue, and skin Benign neoplasm of peripheral nerve sheath [facility] 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, soft tissue, and skin Chronic pain due to neoplasm [facility] Diagnosis Medicare annual wellness [...] right upper quadrant documented in this encounter [facility] Work Phone: Evaluation noteNo assessment information available [facility] Work Phone: History of Present [...] 2020 * Shingrix-- none found (history of [place] outbreak) * Pneumonia series-- N/A * Mammo-- [...] * 11/2019 mammogram normal, due for repeat. [facility] Work Phone: History of Present [...] 2020 * Shingrix-- none found (history of [place] outbreak) * Pneumonia series-- N/A * Mammo-- [...] * 11/2019 mammogram normal, due for repeat. [facility] Work Phone: History of Present illness Narrative* [...] 2020 * Shingrix-- none found (history of [place] outbreak) * Pneumonia series-- N/A * Mammo-- [...] * 11/2019 mammogram normal, due for repeat. [facility] Work Phone: History of Present illness Narrative* Pt of Dr. Tom, [facility] (Front Staff) * Has hx of NF1 [...] neuro did not make a difference. [facility]ep [facility] Work Phone: History of Present illness Narrative* MWV LAST COMPLETED 12/2021 * Health maintenance: * TDAP-- none found * COVID-- none found * Influenza-- Due Fall 2021 * Shingrix-- none found (history of [place] outbreak) * Pneumonia series-- N/A * Mammo-- [...] to know if she should have a ROLL TENDER referral. * She had no period over [...] * UDS is due, last completed 03/2019 [facility] Work Phone: History of Present illness Narrative* MWV LAST COMPLETED 12/2021 * Health maintenance: * TDAP-- none found * COVID-- none found * Influenza-- Due Fall 2021 * Shingrix-- none found (history of [place] outbreak) * Pneumonia series-- N/A * Mammo-- [...] to know if she should have a ROLL TENDER referral. * She had no period over [...] * UDS is due, last completed 03/2019 [facility] Work Phone: Hospital Discharge instructionsAdditional Instructions Please wear your finger splint to stabilize your fracture. Follow-up with orthopedics to ensure there is no need for further intervention. Return to the ER should you have any [facility] Work Phone: Reason for referral (narrative)* Diagnostic Procedure Only (Routine) - Pending Review Specialty Diagnoses / Procedures Referred By Kvng t Referred To Contact XR IMAGING 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 Procedures XR MODIFIED BARIUM SWALLOW W SPEECH THERAPY RADIOLOGIC EXAM SWALLOW FUNCTION CONTRAST STUDY Dre Monte MD [address] [place] [address] Xr Imaging Referral ID Status Reason Start Date Expiration Date Visits Requested Visits Authorized [id number] Pending Review Auto-Generat ed Referral 2 05/15/2023 1 1 * Speech Therapy (Routine) - Authorized Specialty Diagnoses / Procedures Referred By Kvng pat Referred To Contact [facility] 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 Procedures CONSULT TO SPEECH THERAPY OFFICE/OUTPATIENT [facility] 60-74 MINUTES Dre Monte MD [address] [place] [address] [facility] [place] [address] Referral ID Status Reason Start Date Expiration Date Visits Requested Visits Authorized [id number] Authorized Auto-Generat ed Referral 2 04/15/2023 99 99 [facility] for referral (narrative)* Diagnostic Procedure Only (Routine) - Closed Specialty Diagnoses / Procedures Referred By Kvng pat Referred To Contact XR IMAGING 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 Procedures XR MODIFIED BARIUM SWALLOW W SPEECH THERAPY RADIOLOGIC EXAM SWALLOW FUNCTION CONTRAST STUDY Dre Monte MD [address] [place] [address] Xr Imaging Referral ID Status Reason Start Date Expiration Date V isits Requested Visits Authorized [id number] Closed Auto-Generate d Referral 04/15/2022 05/15/2023 1 1 [facility] for referral (narrative)* Diagnostic Procedure Only (Routine) - Pending Review Specialty Diagnoses / Procedures Referred By Kvng pat Referred To Contact XR IMAGING Diagnoses Zenker diverticulum Procedures XR ESOPHAGRAM RADIOLOGIC EXAM ESOPHAGUS SINGLE CONTRAST STUDY Jitendra Montgomery MD [address] [place] [address] Xr Imaging Referral ID Status Reason Start Date Expiration Date Visits Requested Visits Authorized [id number] Pending Review Auto-Generat ed Referral 05/23/2022 06/22/2023 1 1 [facility] for referral (narrative)* Outpatient Procedure (Routine) - Authorized Specialty Diagnoses / Procedures [facility] Referred To Contact [facility] [place] Diagnoses Neurofibromatosis, unspecified (HCC) Neurofibroma Other heart disorders in diseases classified elsewhere Procedures ECG COMPLETE ECG ROUTINE ECG W/LEAST 12 LDS W/I&R Rosa Ponce MD [address] [place] [address] [place] [address] Referral ID Status Reason Start Date Expiration Date Visits Requested Visits Authorized [id number] Authorized Auto-Generat ed Referral 05/23/2022 05/23/2023 1 1 [facility] for referral (narrative)* Outpatient Procedure (Routine) - Pending Review Specialty Diagnoses / Procedures [facility] Referred To Contact [facility] Diagnoses Other heart disorders in diseases classified elsewhere Neurofibromatosis, unspecified (HCC) Procedures ECHO ECHO TTHRC R-T 2D W/WOM-MODE COMPL SPEC&COLR D Rosa Ponce MD [address] [place] [address] [place] [address] Referral ID Status Reason Start Date Expiration Date Visits Requested Visits Authorized [id number] Pending Review Auto-Generat ed Referral 05/31/2022 05/23/2023 1 1 [facility] for referral (narrative)* Diagnostic Procedure Only (Routine) - Closed Specialty Diagnoses / Procedures [facility] Referred To Contact XR IMAGING Diagnoses Zenker diverticulum Procedures XR ESOPHAGRAM RADIOLOGIC EXAM ESOPHAGUS SINGLE CONTRAST STUDY Jitendra Montgomery MD [address] [place] [address] Xr Imaging Referral ID Status Reason Start Date Expiration Date V isits Requested Visits Authorized [id number] Closed Auto-Generate d Referral 05/23/2022 06/22/2023 1 1 [facility] for referral (narrative)* Consultation (Routine) - Authorized Specialty Diagnoses / Procedures Referred By Contac t Referred To Contact Primary Care Diagnoses Medication management Insomnia, unspecified type Procedures Follow Up In Advanced Primary Care - PCP Ramandeep Tom DO [address] [facility], [place] [address] Referral ID Status Reason Start Date Expiration Date V isits Requested Visits Authorized [id number] Authorized 07/29/2022 01/25/2023 1 1 * Imaging (Routine) - Authorized Specialty Diagnoses / Procedures Referred By Contac t Referred To Contact Radiology Diagnoses Breast cancer screening by mammogram Procedures BI mammo bilateral screening tomosynthesis Ramandeep Tom DO [address] [facility], [place] [address] Referral ID Status Reason Start Date Expiration Date Visits Requested Visits Authorized [id number] Authorized Perform Procedure 07/29/2022 01/25/2023 1 1 * Endoscopy (Routine) - Authorized Specialty Diagnoses / Procedures Referred By Contac t Referred To Contact Gastroenterology Diagnoses Screening for colon cancer Procedures Colonoscopy Ramandeep Tom DO [address] [place] [address] Referral ID Status Reason Start Date Expiration Date V isits Requested Visits Authorized [id number] Authorized 07/29/2022 01/25/2023 1 1 [facility] Work Phone: Reason for referral (narrative)No reason for referral information [facility]WC[facility] Work [facility]: Reason for visit Narrative* Diagnostic Procedure Only (Routine) - Closed Specialty Diagnoses / Procedures Referred By Contac t Referred To Contact XR IMAGING 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 Procedures XR MODIFIED BARIUM SWALLOW W SPEECH THERAPY RADIOLOGIC EXAM SWALLOW FUNCTION CONTRAST STUDY Dre Monte MD [address] [place] [address] Xr Imaging Referral ID Status Reason Start Date Expiration Date V isits Requested Visits Authorized [id number] Closed Auto-Generate d Referral 04/15/2022 05/15/2023 1 1 [facility] (Routine) - Authorized Specialty Diagnoses / Procedures Referred By Contac t Referred To Contact Radiology Diagnoses Screening for cardiovascular condition Procedures CT cardiac scoring wo IV contrast Ramandeep Tom DO [address] [facility], [place] [address] [place] [address] Phone: tel: fax: Referral ID Status Reason Start Date Expiration Date Visits Requested Visits Authorized [id number] Authorized Perform Procedure 02/03/2024 02/02/2025 1 1 [facility] Work Phone: Reason for visit Narrative* Imaging (Routine) - Authorized Specialty Diagnoses / Procedures Referred By Contac t Referred To Contact Radiology Diagnoses RUQ abdominal pain Procedures US gallbladder Michelle Menchaca MD [address] [facility], [place] [address] [place] [address] Phone: tel: fax: Referral ID Status Reason Start Date Expiration Date Visits Requested Visits Authorized [id number] Authorized Perform Procedure 10/15/2024 10/15/2025 1 1 [facility] Work Phone: Reason for visit Narrative* MRI/CT (Routine) - Closed Specialty Diagnoses / Procedures Referred By Contac t Referred To Contact MR IMAGING 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 Procedures MRI LUMBAR SPINE WO/W IVCON MRI SPINAL CANAL LUMBAR W/O & W/CONTR Dre Gomez MD [address] [place] [address] Phone: tel: fax: MR IMAGING [place] [address] Referral ID Status Reason Start Date Expiration Date V isits Requested Visits Authorized [id number] Closed Auto-Generate d Referral 10/27/2023 11/25/2024 1 1 [facility] for visit Narrative* MRI/CT (Routine) - Closed Specialty Diagnoses / Procedures Referred By Kvng t Referred To Contact MR IMAGING 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 Procedures MRI THORACIC SPINE WO/W IVCON MRI SPINAL CANAL THORACIC W/O & W/CONTR Dre Gomez MD [address] [place] [address] Phone: tel: fax: MR IMAGING [place] [address] Referral ID Status Reason Start Date Expiration Date V isits Requested Visits Authorized [id number] Closed Auto-Generate d Referral 10/27/2023 11/25/2024 1 1 [facility] for visit Narrative* MRI/CT (Routine) - Closed Specialty Diagnoses / Procedures Referred By Kvng t Referred To Contact MR IMAGING 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 Procedures MRI CERVICAL SPINE WO/W IVCON MRI SPINAL CANAL CERVICAL W/O & W/CONTR Dre Gomez MD [address] [place] [address] Phone: tel: fax: MR IM[facility]ING [place] [address] Referral ID Status Reason Start Date Expiration Date V isits Requested Visits Authorized [id number] Closed Auto-Generate d Referral 10/27/2023 11/25/2024 1 1 [facility] Summary Purpose Family History No Family History [...] No August 01, 2021 8:47pm Power of Typo Machine Operator No August 01 8:47pm Latest Code Status on File Code Status Date Activated Date Inactivated Comments None 07/13/2004 2:17 PM 07/13/2004 3:17 PM Date Activated Date Inactivated Comments 07/13/2004 2:17 PM 07/13/2004 3:17 PM Date Activated Date Inactivated Comments 07/13/2004 2:17 PM 07/13/2004 3:17 PM Advance Directive Response Recorded Date/ Time Do you have a Healthcare Power of Typo Machine Operator? No November 28, 2024 10:40pm Chief Complaint f/u NF-1 + MWVf/u NF-1 + MWVf/u NF-1 + MWVChief Complaint: SANDRA SANCHEZ is here with a [...] CERVICAL W/O & W/CONTR Dre Gomez MD [address] [place], [place] [id number] Mr Imaging Referral ID Status Reason Start Date Expiration Date V isits Requested Visits Authorized [id number] Closed Auto-Generate d Referral 08/22/2021 09/21/2022 1 1 Specialty Diagnoses / Procedures Referred By Kvng t Referred To Contact MR IMAGING Diagnoses Benign neoplasm of peripheral nerve sheath Procedures MRI SOFT TISSUE NECK WO/W IVCON MRI ORBIT FACE & NECK W/O & W/CONTRAST Dre Gomez MD [address] [place] [address] Mr Imaging Referral ID Status Reason Start Date Expiration Date V isits Requested Visits Authorized [id number] Closed Auto-Generate d Referral 08/22/2021 09/21/2022 1 1 Specialty Diagnoses / Procedures Referred By Contac t Referred To Contact MR IMAGING 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 pain Procedures MRI PELVIS WO/W IVCON MRI PELVIS W/O & W/CONTRAST MATERIAL Dre Monte MD [address] [place] [address] Mr Imaging [place] [address] Referral ID Status Reason Start Date Expiration Date V isits Requested Visits Authorized [id number] Closed Auto-Generate d Referral 03/13/2022 04/12/2023 1 1 Specialty Diagnoses / Procedures Referred By Contac t Referred To Contact MR IMAGING 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 pain Procedures MRI THORACIC SPINE WO/W IVCON MRI SPINAL CANAL THORACIC W/O & W/CONTR MATRL Dre Monte MD [address] [place] [address] Mr Imaging [place] [address] Referral ID Status Reason Start Date Expiration Date V isits Requested Visits Authorized [id number] Closed Auto-Generate d Referral 03/13/2022 04/12/2023 1 1 Specialty Diagnoses / Procedures Referred By Contac t Referred To Contact MR IMAGING 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 pain Procedures MRI LUMBAR SPINE WO/W IVCON MRI SPINAL CANAL LUMBAR W/O & W/CONTR MATRL Dre Monte MD [address] [place] [address] Mr Imaging [place] [address] Referral ID Status Reason Start Date Expiration Date V isits Requested Visits Authorized [id number] Closed Auto-Generate d Referral 03/13/2022 04/12/2023 1 1 Specialty Diagnoses / Procedures Referred By Contac t Referred To Contact MR IMAGING 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 pain Procedures MRI CERVICAL SPINE WO/W IVCON MRI SPINAL CANAL CERVICAL W/O & W/CONTR MATRL Dre Monte MD [address] [place] [address] [place] [address] Referral ID Status Reason Start Date Expiration Date V isits Requested Visits Authorized [id number] Closed Auto-Generate d Referral 03/13/2022 04/12/2023 1 1 Specialty Diagnoses / Procedures Referred By Contac t Referred To Contact Radiology Diagnoses Postmenopausal estrogen deficiency Procedures XR DEXA bone density Ramandeep Tom, DO [address] [facility], [address] [address] Referral ID Status Reason Start Date Expiration Date Visits Requested Visits Authorized [id number] Pending Review Perform Procedure 08/19/2023 08/18/2024 1 1 Specialty Diagnoses / Procedures Referred By Contac t Referred To Contact Gastroenterology Diagnoses Screening for colon cancer Procedures Colonoscopy Screening; High Risk Patient; dad with hx of colon cancer MO COLONOSCOPY FLX DX W/COLLJ SPEC WHEN PFRMD MO COLON CA SCRN NOT HI RSK IND MO COLORECTAL SCRN; HI RISK IND MO COLONOSCOPY W/BIOPSY SINGLE/MULTIPLE MO COLSC FLX W/RMVL OF TUMOR POLYP LESION SNARE TQ MO COLSC FLX W/REMOVAL LESION BY HOT BX FORCEPS Ramandeep Tom, DO [address] [facility], [address] [address] Referral ID Status Reason Start Date Expiration Date V isits Requested Visits Authorized [id number] Pending Review 08/19/2023 08/18/2024 1 1 Specialty Diagnoses / Procedures Referred By Contac t Referred To Contact Radiology Diagnoses Other screening mammogram Procedures BI mammo bilateral screening tomosynthesis Ramandeep Tom, DO [address] [facility], [facility] [address] [place] [address] Referral ID Status Reason Start Date Expiration Date Visits Requested Visits Authorized [id number] Authorized Perform Procedure 08/19/2023 08/18/2024 1 1 Specialty Diagnoses / Procedures Referred By Contac t Referred To Contact MR IMAGING Diagnoses Neurofibromatosis (HCC) Procedures MRI THORACIC SPINE WO/W IVCON MRI SPINAL CANAL THORACIC W/O & W/CONTR Dre Gomez MD [address] [place] [phone] Mr Imaging [place] [address] Referral ID Status Reason Start Date Expiration Date V isits Requested Visits Authorized [id number] Closed Auto-Generate d Referral 10/16/2022 11/15/2023 1 1 Specialty Diagnoses / Procedures Referred By Contac t Referred To Contact MR IMAGING Diagnoses Neurofibromatosis (HCC) Procedures MRI LUMBAR SPINE WO/W IVCON MRI SPINAL CANAL LUMBAR W/O & W/CONTR MATRL Dre Monte MD [address] [place] [address] Mr Imaging [place] [address] Referral ID Status Reason Start Date Expiration Date V isits Requested Visits Authorized [id number] Closed Auto-Generate d Referral 10/16/2022 11/15/2023 1 1 Specialty Diagnoses / Procedures Referred By Contac t Referred To Contact MR IMAGING Diagnoses Neurofibromatosis (HCC) Procedures MRI PELVIS WO/W IVCON MRI PELVIS W/O & W/CONTRAST MATERIAL Dre Monte MD [address] [place] [address] Mr Imaging [place] [address] Referral ID Status Reason Start Date Expiration Date V isits Requested Visits Authorized [id number] Closed Auto-Generate d Referral 10/16/2022 11/15/2023 1 1 Specialty Diagnoses / Procedures Referred By Contac t Referred To Contact MR IMAGING Diagnoses Neurofibromatosis (HCC) Procedures MRI CERVICAL SPINE WO/W IVCON MRI SPINAL CANAL CERVICAL W/O & W/CONTR Dre Gomez MD [address] [place] [address] Mr Imaging [place] [address] Referral ID Status Reason Start Date Expiration Date V isits Requested Visits Authorized [id number] Closed Auto-Generate d Referral 10/16/2022 11/15/2023 1 1 Specialty Diagnoses / Procedures Referred By Contac t Referred To Contact MR IMAGING Diagnoses Nerve sheath tumor Procedures MRI BRAIN WO/W IVCON MRI BRAIN BRAIN STEM W/O W/CONTRAST MATERIAL Dre Monte MD [address] [place] [phone] Mr Imaging [facility]95 Referral ID Status Reason Start Date Expiration Date Visits Requested Visits Authorized [id number] Pending Review Auto-Generat ed Referral 10/24/2023 11/22/2024 1 1 Specialty Diagnoses / Procedures Referred By Contac t Referred To Contact Diagnoses Urinary incontinence, unspecified type Nerve sheath tumor Procedures CONSULT TO URO GYNECOLOGY OFFICE/OUTPATIENT NEW HIGH MDM 60 MINUTES Dre Monte MD [address] [place] [phone] Referral ID Status Reason Start Date Expiration Date Visits Requested Visits Authorized [id number] Authorized PCP Requested Referral Auto-Generate d Referral 10/27/2023 10/26/2024 1 1 Specialty Diagnoses / Procedures Referred By Contac t Referred To Contact MR IMAGING 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 Procedures MRI LUMBAR SPINE WO/W IVCON MRI SPINAL CANAL LUMBAR W/O & W/CONTR MATRL Dre Monte MD [address] [place] [phone] Mr Imaging [facility]95 Referral ID Status Reason Start Date Expiration Date Visits Requested Visits Authorized [id number] Pending Review Auto-Generat ed Referral 10/27/2023 11/25/2024 1 1 Specialty Diagnoses / Procedures Referred By Contac t Referred To Contact MR IMAGING 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 Procedures MRI THORACIC SPINE WO/W IVCON MRI SPINAL CANAL THORACIC W/O & W/CONTR HASEEBL Dre Monte MD [address] [place] [phone] Mr Imaging [facility] Referral ID Status Reason Start Date Expiration Date Visits Requested Visits Authorized [id number] Pending Review Auto-Generat ed Referral 10/27/2023 11/25/2024 1 1 Specialty Diagnoses / Procedures Referred By Contac t Referred To Contact MR IMAGING 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 Procedures MRI CERVICAL SPINE WO/W IVCON MRI SPINAL CANAL CERVICAL W/O & W/CONTR Dre Gomez MD [address] [place] [address] Mr Imaging [place] [address] Referral ID Status Reason Start Date Expiration Date Visits Requested Visits Authorized [id number] Pending Review Auto-Generat ed Referral 10/27/2023 11/25/2024 1 1 Specialty Diagnoses / Procedures Referred By Contac t Referred To Contact [facility] Diagnoses Spasticity Chronic pain syndrome Neurofibromatosis 2 (HCC) Procedures CONSULT TO PHYSICAL MEDICINE AND REHABILITATION OFFICE/OUTPATIENT [facility] 60 MINUTES Estelle Reno MD [address] [place] [address]/[place] [address] [facility] [place] [address] Referral ID Status Reason Start Date Expiration Date Visits Requested Visits Authorized [id number] Authorized PCP Requested Referral Auto-Generate d Referral 11/26/2023 11/11/2024 1 1 Specialty Diagnoses / Procedures Referred By Contac t Referred To Contact [facility] Diagnoses Myofascial pain Neurofibromatosis (HCC) 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 on rotation to right Procedures CONSULT TO PHYSICAL THERAPY PHYSICAL THERAPY EVALUATION [facility] 45 MINS Candido Chavez MD [address] [place] [address] [facility] [place] [address] Referral ID Status Reason Start Date Expiration Date Visits Requested Visits Authorized [id number] Authorized PCP Requested Referral Auto-Generate d Referral 12/12/2023 12/11/2024 99 [phone] Referral ID Status Reason Start Date Expiration Date Visits Requested Visits Authorized [id number] Authorized Perform Procedure 08/19/2023 08/18/2024 1 1 Specialty Diagnoses / Procedures Referred By Contac t Referred To Contact Radiology Diagnoses Screening for cardiovascular condition Procedures CT cardiac scoring wo IV contrast Ramandeep Tom, [address] [facility], [address] [address] Referral ID Status Reason Start Date Expiration Date Visits Requested Visits Authorized [id number] Authorized Perform Procedure 02/03/2024 02/02/2025 1 1 Specialty Diagnoses / Procedures Referred By Kvng pat Referred To Contact Physical Therapy Diagnoses Neurofibromatosis (Multi) Neck stiffness Cervicogenic headache Other complicated headache syndrome Jordan Melara Ramandeep DO [place] [address] [facility], [place] [address] [place] [address] Referral ID Status Reason Start Date Expiration Date Visits Requested Visits Authorized [id number] Pending Review Consult and Treat 02/03/2024 02/02/2025 1 1 Chief Complaint and Reason for Visit Chief Complaint CONCERN FOR UTI/BLAD DAHIANA Reason for Visit UTI (urinary tract i nfection) Chief Complaint Admit Date FELL OFF A HORSE November 28, 2024 9:12 pm Additional Source Comments INFORMATION SOURCE (unrecogn ized section and content) DATE CREATED AUTHOR 11/11/2017 [facility] DATE CREATED AUTHOR AUTHOR'S ORGANIZ ATION 09/20/2020 [facility] DATE CREATED AUTHOR AUTHOR'S ORGANIZ ATION 10/17/2021 [facility] DATE CREATED AUTHOR AUTHOR'S ORGANIZ ATION 05/16/2022 [facility] DATE CREATED AUTHOR AUTHOR'S ORGANIZ ATION 01/05/2023 [facility] DATE CREATED AUTHOR AUTHOR'S ORGANIZ ATION 03/22/2024 [facility] DATE CREATED AUTHOR AUTHOR'S ORGANIZ ATION 10/25/2024 [facility] DATE CREATED AUTHOR AUTHOR'S ORGANIZ ATION 11/10/2024 [facility] DATE CREATED AUTHOR AUTHOR'S ORGANIZ ATION 11/20/2024 [facility] DATE CREATED AUTHOR AUTHOR'S ORGANIZ ATION 12/18/2024 [facility] Source Comments (unrecognize d section and content) In the event this informatio n is protected by the Federal Confidentiality of Alcohol and Drug Abuse Patient Records regulations: The Federal rules restrict any use of the information to criminally investigate or prosecute any alcohol or drug abuse patient.[facility] the event this information is protected by the Federal Confidentiality of Alcohol and Drug Abuse Patient Records regulations: The Federal rules restrict any use of the information to criminally investigate or prosecute any alcohol or drug abuse patient.[facility] the event this information is protected by the Federal Confidentiality of Alcohol and Drug Abuse Patient Records regulations: The Federal rules restrict any use of the information to criminally investigate or prosecute any alcohol or drug abuse patient.[facility] the event this information is protected by the Federal Confidentiality of Alcohol and Drug Abuse Patient Records regulations: The Federal rules restrict any use of the information to criminally investigate or prosecute any alcohol or drug abuse patient.[facility] the event this information is protected by the Federal Confidentiality of Alcohol and Drug Abuse Patient Records regulations: The Federal rules restrict any use of the information to criminally investigate or prosecute any alcohol or drug abuse patient.[facility] the event this information is protected by the Federal Confidentiality of Alcohol and Drug Abuse Patient Records regulations: The Federal rules restrict any use of the information to criminally investigate or prosecute any alcohol or drug abuse patient.[facility] the event this information is protected by the Federal Confidentiality of Alcohol and Drug Abuse Patient Records regulations: The Federal rules restrict any use of the information to criminally investigate or prosecute any alcohol or drug abuse patient.[facility] the event this information is protected by the Federal Confidentiality of Alcohol and Drug Abuse Patient Records regulations: The Federal rules restrict any use of the information to criminally investigate or prosecute any alcohol or drug abuse patient.[facility] the event this information is protected by the Federal Confidentiality of Alcohol and Drug Abuse Patient Records regulations: The Federal rules restrict any use of the information to criminally investigate or prosecute any alcohol or drug abuse patient.[facility] the event this information is protected by the Federal Confidentiality of Alcohol and Drug Abuse Patient Records regulations: The Federal rules restrict any use of the information to criminally investigate or prosecute any alcohol or drug abuse patient.[facility] the event this information is protected by the Federal Confidentiality of Alcohol and Drug Abuse Patient Records regulations: The Federal rules restrict any use of the information to criminally investigate or prosecute any alcohol or drug abuse patient.[facility] the event this information is protected by the Federal Confidentiality of Alcohol and Drug Abuse Patient Records regulations: The Federal rules restrict any use of the information to criminally investigate or prosecute any alcohol or drug abuse patient.[facility] Hospital[facility] the event this information is protected by the Federal Confidentiality of Alcohol and Drug Abuse Patient Records regulations: The Federal rules restrict any use of the information to criminally investigate or prosecute any alcohol or drug abuse patient.[facility] Hospital[facility] the event this information is protected by the Federal Confidentiality of Alcohol and Drug Abuse Patient Records regulations: The Federal rules restrict any use of the information to criminally investigate or prosecute any alcohol or drug abuse patient.[facility] Hospital[facility] the event this information is protected by the Federal Confidentiality of Alcohol and Drug Abuse Patient Records regulations: The Federal rules restrict any use of the information to criminally investigate or prosecute any alcohol or drug abuse patient.[facility] Hospital[facility] the event this information is protected by the Federal Confidentiality of Alcohol and Drug Abuse Patient Records regulations: The Federal rules restrict any use of the information to criminally investigate or prosecute any alcohol or drug abuse patient.[facility] HospitalIn the event this information is protected by the Federal Confidentiality of Alcohol and Drug Abuse Patient Records regulations: The Federal rules restrict any use of the information to criminally investigate or prosecute any alcohol or drug abuse patient.[facility] HospitalIn the event this information is protected by the Federal Confidentiality of Alcohol and Drug Abuse Patient Records regulations: The Federal rules restrict any use of the information to criminally investigate or prosecute any alcohol or drug abuse patient.[facility] HospitalIn the event this information is protected by the Federal Confidentiality of Alcohol and Drug Abuse Patient Records regulations: The Federal rules restrict any use of the information to criminally investigate or prosecute any alcohol or drug abuse patient.[facility] HospitalIn the event this information is protected by the Federal Confidentiality of Alcohol and Drug Abuse Patient Records regulations: The Federal rules restrict any use of the information to criminally investigate or prosecute any alcohol or drug abuse patient.[facility] HospitalIn the event this information is protected by the Federal Confidentiality of Alcohol and Drug Abuse Patient Records regulations: The Federal rules restrict any use of the information to criminally investigate or prosecute any alcohol or drug abuse patient.[facility] HospitalIn the event this information is protected by the Federal Confidentiality of Alcohol and Drug Abuse Patient Records regulations: The Federal rules restrict any use of the information to criminally investigate or prosecute any alcohol or drug abuse patient.[facility] HospitalIn the event this information is protected by the Federal Confidentiality of Alcohol and Drug Abuse Patient Records regulations: The Federal rules restrict any use of the information to criminally investigate or prosecute any alcohol or drug abuse patient.[facility] HospitalIn the event this information is protected by the Federal Confidentiality of Alcohol and Drug Abuse Patient Records regulations: The Federal rules restrict any use of the information to criminally investigate or prosecute any alcohol or drug abuse patient.[facility] HospitalIn the event this information is protected by the Federal Confidentiality of Alcohol and Drug Abuse Patient Records regulations: The Federal rules restrict any use of the information to criminally investigate or prosecute any alcohol or drug abuse patient.[facility] HospitalIn the event this information is protected by the Federal Confidentiality of Alcohol and Drug Abuse Patient Records regulations: The Federal rules restrict any use of the information to criminally investigate or prosecute any alcohol or drug abuse patient.[facility] HospitalIn the event this information is protected by the Federal Confidentiality of Alcohol and Drug Abuse Patient Records regulations: The Federal rules restrict any use of the information to criminally investigate or prosecute any alcohol or drug abuse patient.[facility] HospitalIn the event this information is protected by the Federal Confidentiality of Alcohol and Drug Abuse Patient Records regulations: The Federal rules restrict any use of the information to criminally investigate or prosecute any alcohol or drug abuse patient.[facility] HospitalIn the event this information is protected by the Federal Confidentiality of Alcohol and Drug Abuse Patient Records regulations: The Federal rules restrict any use of the information to criminally investigate or prosecute any alcohol or drug abuse patient.[facility] HospitalIn the event this information is protected by the Federal Confidentiality of Alcohol and Drug Abuse Patient Records regulations: The Federal rules restrict any use of the information to criminally investigate or prosecute any alcohol or drug abuse patient.[facility] HospitalIn the event this information is protected by the Federal Confidentiality of Alcohol and Drug Abuse Patient Records regulations: The Federal rules restrict any use of the information to criminally investigate or prosecute any alcohol or drug abuse patient.[facility] HospitalIn the event this information is protected by the Federal Confidentiality of Alcohol and Drug Abuse Patient Records regulations: The Federal rules restrict any use of the information to criminally investigate or prosecute any alcohol or drug abuse patient.[facility] HospitalIn the event this information is protected by the Federal Confidentiality of Alcohol and Drug Abuse Patient Records regulations: The Federal rules restrict any use of the information to criminally investigate or prosecute any alcohol or drug abuse patient.[facility] HospitalIn the event this information is protected by the Federal Confidentiality of Alcohol and Drug Abuse Patient Records regulations: The Federal rules restrict any use of the information to criminally investigate or prosecute any alcohol or drug abuse patient.[facility] HospitalIn the event this information is protected by the Federal Confidentiality of Alcohol and Drug Abuse Patient Records regulations: The Federal rules restrict any use of the information to criminally investigate or prosecute any alcohol or drug abuse patient.[facility] HospitalIn the event this information is protected by the Federal Confidentiality of Alcohol and Drug Abuse Patient Records regulations: The Federal rules restrict any use of the information to criminally investigate or prosecute any alcohol or drug abuse patient.[facility] HospitalIn the event this information is protected by the Federal Confidentiality of Alcohol and Drug Abuse Patient Records regulations: The Federal rules restrict any use of the information to criminally investigate or prosecute any alcohol or drug abuse patient.[facility] HospitalIn the event this information is protected by the Federal Confidentiality of Alcohol and Drug Abuse Patient Records regulations: The Federal rules restrict any use of the information to criminally investigate or prosecute any alcohol or drug abuse patient.[facility] HospitalIn the event this information is protected by the Federal Confidentiality of Alcohol and Drug Abuse Patient Records regulations: The Federal rules restrict any use of the information to criminally investigate or prosecute any alcohol or drug abuse patient.[facility] HospitalIn the event this information is protected by the Federal Confidentiality of Alcohol and Drug Abuse Patient Records regulations: The Federal rules restrict any use of the information to criminally investigate or prosecute any alcohol or drug abuse patient.[facility] HospitalIn the event this information is protected by the Federal Confidentiality of Alcohol and Drug Abuse Patient Records regulations: The Federal rules restrict any use of the information to criminally investigate or prosecute any alcohol or drug abuse patient.[facility] HospitalIn the event this information is protected by the Federal Confidentiality of Alcohol and Drug Abuse Patient Records regulations: The Federal rules restrict any use of the information to criminally investigate or prosecute any alcohol or drug abuse patient.[facility] HospitalIn the event this information is protected by the Federal Confidentiality of Alcohol and Drug Abuse Patient Records regulations: The Federal rules restrict any use of the information to criminally investigate or prosecute any alcohol or drug abuse patient.[facility] Reason for Visit (unrecogniz ed section and content) Reason Comments Consult Specialty Diagnoses / Procedures Referred By Kvng pat Referred To Contact Cardiothoracic Surgery Diagnoses Neurofibromatosis, unspecified (HCC) Zenker's diverticulum Procedures CONSULT TO CARDIOLOGY OFFICE/OUTPATIENT [facility] 60-74 MINUTES Dre Monte MD [address] [place] [address] Referral ID Status Reason Start Date Expiration Date V isits Requested Visits Authorized [id number] Closed PCP Requested Referral 05/23/2022 05/23/2023 1 1 Specialty Diagnoses / Procedures Referred By Kvng pat Referred To Contact MR IMAGING Diagnoses Benign neoplasm of peripheral nerve sheath Procedures MRI SOFT TISSUE NECK WO/W IVCON MRI ORBIT FACE & NECK W/O & W/CONTRAST MATRL Dre Monte MD [facility] [place] [address] Mr Imaging Referral ID Status Reason Start Date Expiration Date V isits Requested Visits Authorized [id number] Closed Auto-Generate d Referral 08/22/2021 09/21/2022 1 1 Reason Comments Refill Request Specialty Diagnoses / Procedures Referred By Kvng pat Referred To Contact Diagnoses Neurofibromatosis (HCC) Procedures CONSULT TO MEDICAL GENETICS - GENERAL OFFICE/OUTPATIENT [facility] 60-74 MINUTES MEDICAL GENETICS COUNSELING EACH 30 MINUTES Stefan Tariq MD [address] [place] [address] [place] [address] Referral ID Status Reason Start Date Expiration Date Visits Requested Visits Authorized [id number] Pending Review PCP Requested Referral Auto-Generate d [...] SWALLOW FUNCTION CONTRAST STUDY Dre Monte MD [address] [place] [address] Xr Imaging Referral ID Status Reason Start Date Expiration Date V isits Requested Visits Authorized [id number] Closed Auto-Generate d Referral 04/15/2022 05/15/2023 1 1 Reason Comments Results Reason Comments Consult Symptomatic Zenker d iverticulum Reason Comments SOFYA first available Reason Comments Radio GI Main HB6 Specialty Diagnoses / Procedures Referred By Contac t Referred To Contact XR IMAGING Diagnoses Zenker diverticulum Procedures XR ESOPHAGRAM RADIOLOGIC EXAM ESOPHAGUS SINGLE CONTRAST STUDY Jitendra Montgomery MD [address] [place] [address] Xr Imaging Referral ID Status Reason Start Date Expiration Date V isits Requested Visits Authorized [id number] Closed Auto-Generate d Referral 05/23/2022 06/22/2023 1 1 Reason Comments Appointment Reason Comments Follow-up Pt presents for 6 mo [facility] follow up- pt states no concerns at this time. 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 Procedures MRI PELVIS WO/W IVCON MRI PELVIS W/O & W/CONTRAST MATERIAL Dre Monte MD [address] [address] [place] [address] Referral ID Status Reason Start Date Expiration Date V isits Requested Visits Authorized [id number] Closed Auto-Generate d Referral 03/13/2022 04/12/2023 1 1 Reason Comments Medicare Annual Wellness Visit [facility] t Pt presents for annual MWV- ABN [...] W/O & W/CONTR Dre Gomez MD [address] [place] [address] Mr Imaging [place] [address] Referral ID Status Reason Start Date Expiration Date V isits Requested Visits Authorized [id number] Closed Auto-Generate d Referral 10/16/2022 11/15/2023 1 1 Specialty Diagnoses / Procedures Referred By Contac t Referred To Contact MR IMAGING Diagnoses Neurofibromatosis (HCC) Procedures MRI LUMBAR SPINE WO/W IVCON MRI SPINAL CANAL LUMBAR W/O & W/CONTR Dre Gomez MD [address] [place] [address] Mr Imaging [place] [address] Referral ID Status Reason Start Date Expiration Date V isits Requested Visits Authorized [id number] Closed Auto-Generate d Referral 10/16/2022 11/15/2023 1 1 Specialty Diagnoses / Procedures Referred By Contac t Referred To Contact MR IMAGING Diagnoses Neurofibromatosis (HCC) Procedures MRI PELVIS WO/W IVCON MRI PELVIS W/O & W/CONTRAST MATERIAL Dre Monte MD [address] [place] [address] Mr Imaging [place] [address] Referral ID Status Reason Start Date Expiration Date V isits Requested Visits Authorized [id number] Closed Auto-Generate d Referral 10/16/2022 11/15/2023 1 1 Specialty Diagnoses / Procedures Referred By Contac t Referred To Contact MR IMAGING Diagnoses Neurofibromatosis (HCC) Procedures MRI CERVICAL SPINE WO/W IVCON MRI SPINAL CANAL CERVICAL W/O & W/CONTR MATRL Dre Monte MD [address] [place] [address] Mr Imaging [place] [address] Referral ID Status Reason Start Date Expiration Date V isits Requested Visits Authorized [id number] Closed Auto-Generate d Referral 10/16/2022 11/15/2023 1 1 Reason Comments Consult Reason Comments Eye Problem Left eye, irritation and swelling in corner near nose, burning and redness x 4 days goup in corner in morning Specialty Diagnoses / Procedures Referred By Contac t Referred To Contact Radiology Diagnoses Other screening mammogram Procedures BI mammo bilateral screening tomosynthesis Ramandeep Tom, DO [address] [facility], [facility] 1 [place] [address] Referral ID Status Reason Start Date Expiration Date Visits Requested Visits Authorized [id number] Authorized Perform Procedure 08/19/2023 08/18/2024 1 1 Specialty Diagnoses / Procedures Referred By Contac t Referred To Contact Radiology Diagnoses Postmenopausal estrogen deficiency Procedures XR DEXA bone density Ramandeep Tom, [address] [facility], [facility] 1 [place] [address] Referral ID Status Reason Start Date Expiration Date Visits Requested Visits Authorized [id number] Authorized Perform Procedure 08/19/2023 08/18/2024 1 1 Reason Comments Medicare Annual Wellness Visit Subsequen t No concerns Reason Comments Follow-up Pt presents for 6 mo nth follow up- pt states no new concerns at this time. Flu Vaccine Pt declines flu vacc ine at this time. Reason Comments Follow-up Reason Comments Follow-up Care Teams (unrecognized sec tion and content) Saddle Lining Stitcher Relationship Specialty Start Date End Date Garcia Rose PCP - General 06/12/09 Saddle Lining Stitcher Relationship Specialty Start Date End Date Garcia Rose PCP - General 06/12/09 Saddle Lining Stitcher Relationship Specialty Start Date End Date Garcia Rose PCP - General 06/12/09 Saddle Lining Stitcher Relationship Specialty Start Date End Date Raamndeep Tom DO [address] [facility] [address] [place], [place] [id number] PCP - General Family Practice 11/01/21 Saddle Lining Stitcher Relationship Specialty Start Date End Date Ramandeep Tom, DO [address] [facility] [place] [address] [place] [address] PCP - General Family Practice 11/01/21 Saddle Lining Stitcher Relationship Specialty Start Date End Date Ramandeep Tom, DO [address] [facility] [place] [address] [place] [address] PCP - General Family Practice 11/01/21 Saddle Lining Stitcher Relationship Specialty Start Date End Date Ramandeep Tom, DO [address] [facility] [place] [address] [place] [address] PCP - General Family Practice 11/01/21 Saddle Lining Stitcher Relationship Specialty Start Date End Date Ramandeep Tom, DO [address] [facility] [place] [address] [place] [address] PCP - General Family Medicine 11/01/21 Saddle Lining Stitcher Relationship Specialty Start Date End Date Ramandeep Tom, DO [address] [facility] [place] [address] [place] [address] PCP - General Family Medicine 11/01/21 Saddle Lining Stitcher Relationship Specialty Start Date End Date Ramandeep Tom, DO [address] [facility] [address] [place] [address] PCP - General Family Medicine 11/01/21 Saddle Lining Stitcher Relationship Specialty Start Date End Date Ramandeep Tom, DO [address] [facility] [address] [place] [address] PCP - General Family Medicine 11/01/21 Saddle Lining Stitcher Relationship Specialty Start Date End Date Ramandeep Tom, DO [address] [facility] [address] [place] [address] PCP - General Family Medicine 11/01/21 Saddle Lining Stitcher Relationship Specialty Start Date End Date Ramandeep Tom, DO [address] [place] [address] [place] [address] PCP - General Family Medicine 11/01/21 Saddle Lining Stitcher Relationship Specialty Start Date End Date Ramandeep Tom, DO [address] [place] [address] [place] [address] PCP - General Family Medicine 11/01/21 Saddle Lining Stitcher Relationship Specialty Start Date End Date Ramandeep Tom, DO [address] [place] [address] [place] [address] PCP - General Family Medicine 11/01/21 Saddle Lining Stitcher Relationship Specialty Start Date End Date Ramandeep Tom, DO [address] [facility] [address] [place] [address] PCP - General Family Medicine 11/01/21 Saddle Lining Stitcher Relationship Specialty Start Date End Date Ramandeep Tom, DO [address] [place] [address] [place] [address] PCP - General Family Medicine 11/01/21 Saddle Lining Stitcher Relationship Specialty Start Date End Date Ramandeep Tom, DO [address] [facility] [address] [place] [address] PCP - General Family Medicine 11/01/21 Saddle Lining Stitcher Relationship Specialty Start Date End Date Ramandeep Tom, DO [address] [facility] [address] [place] [address] PCP - General Family Medicine 11/01/21 Saddle Lining Stitcher Relationship Specialty Start Date End Date Ramandeep Tom, DO [address] [place] [address] [place] [address] PCP - General Family Medicine 11/01/21 Saddle Lining Stitcher Relationship Specialty Start Date End Date Ramandeep Tom, DO [address] [facility] [address] [place] [address] PCP - General Family Medicine 11/01/21 Dre Monte MD [address] [address] Neurology 07/10/22 Saddle Lining Stitcher Relationship Specialty Start Date End Date Ramandeep oTm DO [address] [facility] [address] [place] [address] PCP - General Family Medicine 11/01/21 Dre Monte MD [address] [address] Neurology 07/10/22 Team Status: Active Member Role Status Dates [facility] Family Provider Active No Primary Care Physician Primary Care Provider Active Team Status: Inactive Member Role Status Dates No Primary Care Physician Primary Care Provider, Refer ring Provider Active Ismael YEPEZ PA Attending Provider Active Team Status: Inactive Member Role Status Dates No Primary Care Physician Primary Care Provider Active Ismael YEPEZ PA Attending Provider Active Saddle Lining Stitcher Relationship Specialty Start Date End Date Ramandeep Tom DO [address] [facility], [place] [address] [place] [address] PCP - General 11/04/18 Ramandeep Tom DO [address] [place] [address], [place] [address] [place] [address] PCP - MSSP ACO Attributed Provider 08/17/21 Saddle Lining Stitcher Relationship Specialty Start Date End Date Ramandeep Tom DO [address] [place] [address] [place] [address] [place] [address] PCP - General Family Medicine 11/01/21 Dre Monte MD [address] [place] [address] Neurology 07/10/22 Saddle Lining Stitcher Relationship Specialty Start Date End Date Ramandeep Tom DO [address] [facility], [place] [address] [place] [address] PCP - General 11/04/18 Ramandeep Tom DO [address] [facility], [place] [address] [place] [address] PCP - MSSP ACO Attributed Provider 08/17/21 Saddle Lining Stitcher Relationship Specialty Start Date End Date Ramandeep Tom DO [address] [facility] [address] [place] [address] PCP - General Family Medicine 11/01/21 Dre Monte MD [address] [place] [address] Neurology 07/10/22 Saddle Lining Stitcher Relationship Specialty Start Date End Date Ramandeep Tom DO [address] [facility] [address] [place] [address] PCP - General Family Medicine 11/01/21 Dre Monte MD [address] [place], [place] [id number] Neurology 07/10/22 Saddle Lining Stitcher Relationship Specialty Start Date End Date Ramandeep Tom DO [address] [facility] [address] [place] [address] PCP - General Family Medicine 11/01/21 Dre Monte MD [address] [place] [address] Neurology 07/10/22 Saddle Lining Stitcher Relationship Specialty Start Date End Date Ramandeep Tom DO [address] [place] [address] [place] [address] PCP - General Family Medicine 11/01/21 Dre Monte MD [address] [place] [address] Neurology 07/10/22 Saddle Lining Stitcher Relationship Specialty Start Date End Date Ramandeep Tom DO [address] [facility] [address] [place] [address] PCP - General Family Medicine 11/01/21 Dre Monte MD [address] [place] [address] Neurology 07/10/22 Saddle Lining Stitcher Relationship Specialty Start Date End Date Ramandeep Tom DO [address] [facility] [address] [place] [address] PCP - General Family Medicine 11/01/21 Dre Monte MD [address] [place] [address] Neurology 07/10/22 Saddle Lining Stitcher Relationship Specialty Start Date End Date Ramandeep Tom DO [address] [facility] [address] [place] [address] PCP - General Family Medicine 11/01/21 Dre Monte MD [address] [place] [id number] Neurology 07/10/22 Saddle Lining Stitcher Relationship Specialty Start Date End Date Ramandeep Tom DO [address] [facility], [facility] 1 [place] [address] PCP - General 11/04/18 Ramandeep Tom DO [address] [facility], [place] [address] [place] [address] PCP - MSSP ACO Attributed Provider 08/17/21 Saddle Lining Stitcher Relationship Specialty Start Date End Date Ramandeep Tom DO [address] [facility], [place] [address] [place] [address] PCP - General 11/04/18 Ramandeep Tom DO [address] [facility], [place] [address] [place] [address] PCP - MSSP ACO Attributed Provider 08/17/21 Saddle Lining Stitcher Relationship Specialty Start Date End Date Ramandeep Tom DO [address] [facility], [place] [address] [place] [address] PCP - General 11/04/18 Ramandeep Tom DO [address] [facility], [place] [address] [place] [address] PCP - MSSP ACO Attributed Provider 08/17/21 Saddle Lining Stitcher Relationship Specialty Start Date End Date Ramandeep Tom DO [address] [facility], [place] [address] [place] [address] PCP - General 11/04/18 Ramandeep Tom DO [address] [facility], [place] [address] [place] [address] PCP - MSSP ACO Attributed Provider 08/17/21 Saddle Lining Stitcher Relationship Specialty Start Date End Date Ramandeep Tom DO [address] [address] [place] [address] PCP - MSSP ACO Attributed Provider 08/17/21 Michelle Menchaca MD [address] [facility], [place] [address] [place] [address] PCP - General Family Medicine 08/06/24 Saddle Lining Stitcher Relationship Specialty Start Date End Date Ramandeep Tom DO [address] [place] [address] [place] [address] PCP - MSSP ACO Attributed Provider 08/17/21 Michelle Menchaca MD [address] [facility], [place] [address] [place] [address] PCP - General Family Medicine 08/06/24 Saddle Lining Stitcher Relationship Specialty Start Date End Date Ramandeep Lobo DO [address] [facility] [address] [place] [address] PCP - General Family Medicine 11/01/21 Dre Monte MD [address] [address] Neurology 07/10/22 Saddle Lining Stitcher Relationship Specialty Start Date End Date Ramandeep Lobo DO [address] [facility] 1 [place] [address] PCP - General Family Medicine 11/01/21 Dre Monte MD [address] [place], [place] [id number] Neurology 07/10/22 Saddle Lining Stitcher Relationship Specialty Start Date End Date Dre Monte MD [address] [place] [id number] Neurology 07/10/22 Michelle Menchaca MD [address] [facility], [facility] 1 [place] [address] Family Medicine 11/04/24 Saddle Lining Stitcher Relationship Specialty Start Date End Date Ramandeep Tom DO [address] [facility] [address] [place] [address] PCP - MSSP ACO Attributed Provider 08/17/21 Michelle Menchaca MD [address] [facility], [facility] [address] [place] [address] PCP - General Family Medicine 08/06/24 Team Status: Active Member Role/Relationship Status Dates MICHELLE MENCHACA Primary Care Provider Active Team Status: Inactive Member Role/Relationship Status Dates Dr. Kartik Ha DO Emergency Provider Active Start: November 28, 2024 End: November 28, 2024 NIKOLAI GUTIÉRREZ Primary Care Provider Active Start: November 28, 2024 End: November 28, 2024 Goals (unrecognized section and content) Goals may be documented in a n alternate sectionGoals may be documented in an alternate section FOR RECORDS PERTAINING TO PATIENTS [...] BE BASED ON THE PRIMARY CLINICAL RECORDS. [facility] provides no warranty or guarantee of the accuracy or completeness of information in this document.
--- OUTSIDE RECORDS SUMMARY | 2024-12-21 18:33 | XMS RPT_ITS | CCD ---
Author Organization [facility] Care Team Providers Care Potato Pancake Frier Name Role Phone Rings, Rigo Unavailable Unavailable Rings, Rigo Unavailable Unavailable No Doctor Assigned, Nodr Unavailable Unavail able Van Nostran, Ramandeep Unavailable Unavailable Van Nostran, Ramandeep E Unavailable Unavailabl e Ismael Monzon Unavailable Unavailable Van Nostran, Ramandeep E Unavailable [phone] Unavailable Unavailable Garcia Rose Primary Care Provider [...] Provider Un available LUCHO Andrews Attending Provider [phone] VAN NOSTRAN, DO RAMANDEEP E Primary Care [...] E Primary Care Provider Van Nostran DO, Ramanedep E Unavailable Van Nostran DO, Ramandeep E Primary Care Provider VAN NOSTRAN, RAMANDEEP E Referring Unavailabl e VAN NOSTRAN, RAMANDEEP E Primary Care Unavailabl e Van Nostran DO, Ramandeep E Unavailable [phone] Michelle Menchaca MD Primary Care Provider VAN NOSTRAN, RAMANDEEP E Primary Care Unavailabl e VAN NOSTRAN, RAMANDEEP E Referring Unavailabl e VAN NOSTRAN, RAMANDEEP E Primary Care Unavailabl e MICHELLE MENCHACA Referring Unavailable MICHELLE MENCHACA Primary Care Unavailable Vannostran Ramandeep DUNCAN Primary Care [facility] er Michelle Menchaca MD Unavailable LOBROSE, DRE Attending Unavailable LOBBOUS, DRE Referring Unavailable VANNOSTRAN, RAMANDEEPTEREZA MCDONALD Primary Care Unavai lable LOBBOUS, DRE Referring Unavailable VANNOSTRAN, RAMANDEEP TAMARA Primary Care Unavai lable LOBBOUS, DRE Referring Unavailable [facility] Unavai lable [facility]STR[facility], [facility] Primary Care UnaCANDIDO Miramontes Attending Unavailable VANNOSTRAN, [facility] Unavai lable LOBBOUS, DRE Referring Unavailable [facility], [facility] Unavai lable VAN NOSTRAN, RAMANDEEP Holt Attending Unavailabl e VAN NOSTRAN, RAMANDEEP Holt Primary Care Unavailabl e MICHELLE MENCHACA Attending Unavailable MICHELLE MENCHACA Primary Care Unavailable MICHELLE MENCHACA Attending Unavailable MICHELLE MENCHACA Primary Care Unavailable Dr. Kartik Ha DO Emergency Provider MICHELLE MENCHACA Primary Care Provider [phone] Care Physician, No Primary Primary Care Unava ilable BeatrizstRamandeep story Referring Unavailable VanNostjez, Ramandeep Attending Unavailable RONAL YUEN Primary Care Unavailable Kartik Ha Attending Unavailable RONAL YUEN Primary Care Unavailable Veronika Waldron Referring Unavailable Veronika Waldron Attending Unavailable Allergies Allergy Classification Reported Allergen(s) Allergy Type Date of Onset Reaction(s) Facility Anti-Epileptic Agents (2 sources) gabapentin Drug Allergy 2 Other: See Comments [facility] Work Phone: Opioid Agonists (4 sources) Methadone Drug Allergy 2 Mental Status Change [facility] Pollen (2 sources) Tree and shrub pollen Substance Allergy 2 Other: See Comments [facility] selumetinib (2 sources) selumetinib Drug Allergy 2 Other: See Comments [facility] (1 source) No Known Medication Allergies; Translations: [No Known Medication Allergies] Propensity to adverse reactions to drug (disorder) [facility] Repository (20 sources) gabapentin; Translations: [GABAPENTIN] Drug Allergy 2 Other: See Comments, [facility] Work Phone: (20 sources) Methadone; Translations: [METHADONE] Drug Allergy 2 Mental Status Change, Other [facility] Work Phone: (20 sources) selumetinib; Translations: [SELUMETINIB- TAMIN E TPGS] Drug Allergy 2 Other: See Comments, Other [facility] Work Phone: (20 sources) traMADol; Translations: [TRAMADOL] Drug Allergy 2 Mental Status Change, Unknown [facility] Work Phone: (20 sources) Tree and shrub pollen; Translations: [TREE AND SHRUB POLLEN] Drug Allergy 2 Other: See Comments, Other [facility] Work Phone: (20 sources) Venom-Wasp; Translations: [VENOM-WASP] Drug Allergy 2 Anaphylaxis [facility] Work Phone: (16 sources) selumetinib; Translations: [SELUMETINIB] Drug Allergy 2 Rash [facility] Work Phone: (10 sources) rizatriptan; Translations: [RIZATRIPTAN] Drug Allergy 4 [facility] (10 sources) SUMAtriptan; Translations: [SUMATRIPTAN] Drug Allergy 4 [facility] Work Phone: (7 sources) selumetinib Drug Allergy 2 Other, Other: See Comments [facility] Work Phone: Medications Current Medications Medication [...] Start: 01-10-2019 take [address] [facility] at bedtime Lamotrigine 25 MG tablet Active [...] Start: 11-27-2016 take [address] [facility] at bedtime as needed Zolpidem 5 MG [...] Take 100 mg by mouth twice daily. Llz-Ys-Mrgmfupj 0.18/0.215/0.25 MG-25 MCG Oral Tablet (12 sources) Progestin, Estrogen Start: 11-10-2019 take 1 tablet by mouth once daily Ivo-Xp-Vwyzuadz 0.18/0.215/0.25 MG-25 MCG Oral Tablet Take 1 [...] Comment on above: Take 2 tablets by [facility] twice daily. ketoconazole 20 mg/ml topical cream [...] 12:04am must administer with a meal/food nystatin 566292 unt/ml oral suspension (7 sources) Polyene Antifungal Start: 11-08-2021 End: 07-29-2022 take 5 mL by mouth three times daily nystatin (Mycostatin) 100,000 unit/mL suspension Take by mouth. SWISH AND SWALLOW 5 ML 3 TIMES DAILY 0 11/08/2021 07/29/2022 Discontinued (Therapy completed) Start: 11-08-2021 take 5 mL by mouth t hree times daily Nystatin 530446 UNIT/ML Mouth/Throat Suspension SWISH AND SWALLOW 5 [...] Department Summary on 11-28-2024 Emergency Department Summary [facility] Medical Records Department [address] [place] [address] Emergency Department Summary 11/28/24 MR#: [id number] Acct: [id number] Name: SANDRA SANCHEZ Rep #: [id number] : 1970 54 From: Kartik Ha DO [...] does state that she is right-hand dominant [facility] Medical History Edema of left lower extremity [...] of c (more content not included)... Normal [facility] Hand Min 3 Viewson 5 Hand Min 3 Views [facility] Imaging Services [address] [place], [place] [id number] Hand Min 3 Views MR#: [id number] Acct: [id number] Name: SANDRA SANCHEZ Rep #: [id number] : 1970 F 54 From: Magdiel Jimenez MD PCP: Care Physician,No Primary Status: PRE ER Study: Hand Min 3 Views Date of Exam: 11/28/24 Exam# [id number] Ordering Dr: Provider,Ed P. PROCEDURE: HAND MIN 3 VIEWS 11/28/2024 REASON FOR EXAM: FINGER PAIN TECHNIQUE: HAND MIN 3 VIEWS COMPARISON: No FINDINGS: Acute, minimally displaced fracture, 4th digit middle phalangeal head, intra-articular extension. No dislocation. RAD/Hand Min 3 Views IMPRESSION: 4th digit injury. Reading Location: [place] [address] CC: ED PHYSICIAN PROVIDER; No Primary Care Physician Steam Room Attendant: Signed Normal [facility] CNOVon 11-04-2024 CNOV Office Visit (NSCAMN ) ----- SANDRA SANCHEZ ([id number]) 1970 F Date Time Provider Department 11/04/24 [...] No Does patient want to see a [employer]? No (yes to any of above refer [...] problems; no burning, no frequency, no accidents [employer] - one child: age 27 - G1, [...] both wri (more content not included)... Normal [facility] MR Cervical spine WO and W c devante Issac 10-26-2024 * * *Final Report* * * DATE OF EXAM: Oct 26 2024 9:09AM [facility] 0298 - MRI CERVICAL SPINE WO/W [...] within normal limits. DIVISION OF RADIOLOGY Provider, [facility] - 10/26/2024 * * *Final Report* * * DATE OF EXAM: Oct 26 2024 9:09AM [facility] 0298 - MRI CERVICAL SPINE WO/W [...] IMPRESSION: Innumerable para (more content not included)... [facility] MR Lumbar spine WO and W con [...] within normal limits. DIVISION OF RADIOLOGY Provider, [facility] - 10/26/2024 * * *Final Report* * * DATE OF EXAM: Oct 26 2024 9:09AM [facility] 0304 - MRI LUMBAR SPINE WO/W [...] IMPRESSION: Innumerable parasp (more content not included)... [facility] MR Thoracic spine WO and W c ontrast Issac 10-26-2024 * * *Final Report* * * DATE OF EXAM: Oct 26 2024 9:09AM [facility] 0326 - MRI THORACIC SPINE WO/W [...] within normal limits. DIVISION OF RADIOLOGY Provider, [facility] - 10/26/2024 * * *Final Report* * * DATE OF EXAM: Oct 26 2024 9:09AM [facility] 0326 - MRI THORACIC SPINE WO/W [...] IMPRESSION: Innumerable para (more content not included)... [facility] MRI CERVICAL SPINE WO/W IVCO Non 10-26-2024 MRI CERVICAL SPINE WO/W IVCON * * *Final Report* * * DATE OF EXAM: Oct 26 2024 9:09AM [facility] 0298 - MRI CERVICAL SPINE WO/W [...] Stable degenerative (more content not included)... Normal [facility] MRI LUMBAR SPINE WO/W IVCONo n 10-26-2024 MRI LUMBAR SPINE WO/W IVCON * * *Final Report* * * DATE OF EXAM: Oct 26 2024 9:09AM [facility] 0304 - MRI LUMBAR SPINE WO/W [...] degenerative c (more content not included)... Normal [facility] MRI THORACIC SPINE WO/W IVCO Non 10-26-2024 MRI THORACIC SPINE WO/W IVCON * * *Final Report* * * DATE OF EXAM: Oct 26 2024 9:09AM [facility] 0326 - MRI THORACIC SPINE WO/W [...] Stable degenerative (more content not included)... Normal [facility] No Panel Informationon 10-26 IMPRESSION: Innumerable paraspinal [...] and assume there are 5 lumbar-type vertebrae. Steam Room Attendant: TAVO Transcribe Date/Time: Oct 26 2024 9:25A Dictated by : JENN SMILEY MD This examination was interpreted and the report reviewed and electronically signed by: JENN SMILEY MD on Oct 26 2024 10:32AM [facility] DIVISION OF RADIOLOGY Radiology Study observation (narrative) [facility] No Panel InformationOrdered By: Ccf Provider on 10-26-2024 [facility] US GALLBLADDERon 10-22-2024 US GALLBLADDER Interpreted By: Demetrius Britt, STUDY: US GALLBLADDER; 10/22/2024 2:58 pm INDICATION: Signs/Symptoms:ruq abd pressure; known intraabdominal benign plexiform neurofibromas. COMPARISON: None. ACCESSION NUMBER(S): [id number] ORDERING CLINICIAN: MICHELLE MENCHACA TECHNIQUE: Multiple images [...] Demetrius Huffman 10/23/2024 8:07 AM Dictation workstation: [id number] [facility] Bacteria identifiedon 2024 Bacteria identified Cx Nom (U) Test: Urine Culture Specimen Source: Clean Catch/Voided Specimen Type: Urine Specimen Date: 10/15/2024 144 Result Date: 10/17/2024826 Result Status: Final result Abnormal: No Resulting Lab: [facility] [address] [place] [address] CULTURE Clinically insignificant growth based on current clinical standards. [facility] Ambulatory Comment on above: Performed By: #### 6 30-4 #### ESTELLE Remy ([id number]) [facility] ([facility]) [address] [place] [address] POCT UA Automated manually r esultedon 10-15-2024 Appearance (U) Clear Clear [facility] Work Phone: [phone] Glucose Test strip (U) [Mass/Vol] Negative NEGATIVE mg/dl [facility] Work Phone: [phone] Hemoglobin Ql (U) Negative NEGATIVE [facility] Work Phone: [phone] Leukocyte esterase Test strip Ql (U) Negative NEGATIVE [facility] Work Phone: [phone] Nitrite Ql (U) Negative NEGATIVE [facility] Work Phone: [phone] pH (U) 6.0 [pH] No Reference Range Established [facility] Work Phone: [phone] POC Bilirubin, Urine Negative NEGATIVE [facility]: [phone] POC Color, Urine Yellow Straw, Yellow, Light-Yellow [facility] Work Phone: [phone] POC Ketones, Urine Negative NEGATIVE mg/dl [facility] Work Phone: [phone] POC Protein, Urine Negative NEGATIVE mg/dl [facility] Work Phone: [phone] POC Specific Mcbain, Urine >=1.030 1.005 - 1.035 [facility] Work Phone: [phone] POC Urobilinogen, Urine 0.2 0.2, 1.0 EU/DL [facility] Work Phone: [phone] [facility] Work Phone: PT D/C Summary (1)on 025 PT D/C Summary (1) [facility] Physical Therapy [address] [place] [address] / REHABILITATION SERVICES DISCHARGE SUMMARY MR#: [id number] Acct: [id number] Name: SANDRA SANCHEZ Rep #: [id number] : 1970 53 From: Yamilka Elam PT. [...] please feel free to call me at [phone]. Thank you for the referral of this patient. Sincerely, Kris Whelan PT, Cert MDT, OCS Balance/Gait/Functional tests Balance/Special Test Scores Oswestry Neck Score: 6 Improvement % Improvement: 75 06/15/24 1421 CC: Dr. Ramandeep Lobo DO; No Primary Care Physician OBINNA Signed Normal [facility] Re-Evaluation - PT (1)on Re-Evaluation - PT (1) [facility] Physical Therapy [facility] [address] [place] [address] / REEVALUATION / MEDICARE RECERTIFICATION PHYSICAL THERAPY MR#: [id number] Acct: [id number] Name: SANDRA SANCHEZ Rep #: [id number] : 1970 53 From: Kris Whelan PT, [...] do not hesitate to contact me at [phone] by phone or if you have questions or concerns regarding this new plan of care! Sincerely, Kris Whelan, PT, Cert T, OCS 05/13/24 7563 CC: Dr. Ramandeep Lobo DO; No Primary Care Physician OBINNA Signed For Medicare only, by signing this I certify the plan of care. ___ Physicians Signature Date Normal [facility] Re-Evaluation - PT (1)on Re-Evaluation - PT (1) [facility] Physical Therapy [facility] [address] [place] [address] / REEVALUATION / MEDICARE RECERTIFICATION PHYSICAL THERAPY MR#: [id number] Acct: [id number] Name: SANDRA SANCHEZ Rep #: [id number] : 1970 53 From: Kris Whelan PT, [...] do not hesitate to contact me at [phone] by phone or if you have questions or concerns regarding this new plan of care! Sincerely, Kris Whelan, PT, Cert T, OCS 04/14/24 1352 CC: Dr. Ramandeep Lobo DO; No Primary Care Physician CHICHIA Signed For Medicare only, by signing this I certify the plan of care. ___ Physicians Signature Date Normal [facility] Re-Evaluation - PT (1)on Re-Evaluation - PT (1) [facility] Physical Therapy [facility] [address] [place] [address] / REEVALUATION / MEDICARE RECERTIFICATION PHYSICAL THERAPY MR#: [id number] Acct: [id number] Name: SANDRA SANCHEZ Rep #: [id number] : 1970 53 From: Kris Whelan PT, [...] do not hesitate to contact me at [phone] by phone or if you have questions or concerns regarding this new plan of care! Sincerely, Kris Whelan, PT, Cert MDT, OCS 03/18/24 1350 CC: Dr. Ramandeep Lobo, DO; No Primary Care Physician OBINNA Signed For Medicare only, by signing this I certify the plan of care. ___ Physicians Signature Date Normal [facility] CT CARDIAC SCORING WO IV CON TRASTon 03-16-2024 CT CARDIAC SCORING WO IV CONTRAST Interpreted By: Andriy Hoffmann, STUDY: CT CARDIAC SCORING WO IV CONTRAST; 03/16/2024 11:13 am INDICATION: Signs/Symptoms:screening; FMHx of AAA in father who was a smoker. ,Z13.6 Encounter for screening for cardiovascular disorders COMPARISON: None. ACCESSION NUMBER(S): [id number] ORDERING CLINICIAN: RAMANDEEP TOM TECHNIQUE: Using prospective [...] coronary heart disease events. According to the [employer] Clinical Expert Consensus [...] modify other non-lipid coronary risk factors. Reference: Giddings P et al. Circulation. 2007; 115:402-426 2. Left paraspinal nodularities are present. Past medical history of neurofibromatosis. MACRO: None Signed by: Andriy Hoffmann 03/22/2024 10:45 AM Dictation workstation: [id number] [facility] BI MAMMO BILATERAL SCREENING TOMOSYNTHESISon 03-01-2024 BI MAMMO BILATERAL SCREENING TOMOSYNTHESIS Interpreted By: Magdiel Ann, STUDY: BI MAMMO BILATERAL SCREENING TOMOSYNTHESIS; 03/01/2024 1:17 pm ACCESSION NUMBER(S): [id number] ORDERING CLINICIAN: RAMANDEEP TOM INDICATION: Screening. Benign [...] any future breast imaging appointments, please call [phone] MACRO: None Signed by: Magdiel Ann 03/06/2024 9:47 PM Dictation workstation: [id number] [facility] DEXA BONE DENSITYon 03-01-20 24 DEXA BONE DENSITY Interpreted By: Iraj Lambert, STUDY: DEXA BONE [id number]/01/2024 1:37 pm INDICATION: Follow-up. COMPARISON: DEXA scan 02/25/2022. ACCESSION NUMBER(S): [id number] ORDERING CLINICIAN: RAMANDEEP TOM TECHNIQUE: DEXA BONE [...] Fracture 1.8% This exam was performed at [facility] on a [place] Dexa Unit. IMPRESSION: DEXA: According to World Health Organization criteria, classification is low bone mass (osteopenia) Followup recommended in two years or sooner as clinically warranted. All images and detailed analysis are available on the Radiology PACS. Signed by: Iraj Lambert 03/01/2024 1:54 PM Dictation workstation: [id number] [facility] DXA Skeletal system Views fo r bone densityon 03-01-2024 DEXA: According to W orld Health Organization criteria, classification is low bone mass (osteopenia) Followup recommended in two years or sooner as clinically warranted. All images and detailed analysis are available on the Radiology PACS. Signed by: Iraj Lambert 03/01/2024 1:54 PM Dictation workstation: [id number] [facility] Interpreted By: Iraj Lambert, STUDY: DEXA BONE [id number]/01/2024 1:37 pm INDICATION: Follow-up. COMPARISON: DEXA scan 02/25/2022. ACCESSION NUMBER(S): [id number] ORDERING CLINICIAN: RAMANDEEP TOM TECHNIQUE: DEXA BONE [...] Fracture 1.8% This exam was performed at [facility] on a [place] Dexa Unit. [facility] Iraj Lambert, - 03/01/2024 Interpreted By: Iraj Lambert, STUDY: DEXA BONE [id number]/01/2024 1:37 pm INDICATION: Follow-up. COMPARISON: DEXA scan 02/25/2022. ACCESSION NUMBER(S): [id number] ORDERING CLINICIAN: RAMANDEEP TOM TECHNIQUE: DEXA BONE [...] Fracture 1.8% This exam was performed at [facility] on a [place] Dexa Unit. IMPRESSION: DEXA: According to World Health Organization criteria, classification is low bone mass (osteopenia) Followup recommended in two years or sooner as clinically warranted. All images and detailed analysis are available on the Radiology PACS. Signed by: Iraj Lambert 03/01/2024 1:54 PM Dictation workstation: [id number] [facility] Work Phone: Radiology Study observation (narrative) [facility] Work Phone: DXA Skeletal system Views fo r bone densityOrdered By: Iraj Lambert on 03-01-2024 [facility] Work Phone: Inital Evaluation (1) - PTon 02-19-2024 Inital Evaluation (1) - PT [facility] Physical Therapy [facility] [address] [place] [address] [address] [place] [address] / REHABILITATION SERVICES INITIAL EVALUATION MR#: [id number] Acct: [id number] Name: SANDRA SANCHEZ Rep #: [id number] : 1970 53 From: Yamilka Elam PT. [...] motion test (more content not included)... Normal [facility] CBC W Auto Differential pane l (Bld)on 02-03-2024 Basophils (Bld) [#/Vol] 0.05 x10*3/uL Normal 0.00-0.10 [facility] Comment on above: Performed By: #### 5 7021-8 #### ESTELLE Remy ([id number]) [facility] ([facility]) [address] [place] [address] Basophils/100 WBC (Bld) 0.7 % Normal 0.0-2.0 [facility] Comment on above: Performed By: #### 5 7021-8 #### ESTELLE Remy ([id number]) [facility] ([facility]) [address] [place] [address] Eosinophils (Bld) [#/Vol] 0.09 x10*3/uL Normal 0.00-0.70 [facility] Comment on above: Performed By: #### 5 7021-8 #### ESTELLE Remy ([id number]) [facility] ([facility]) [address] [place] [address] Eosinophils/100 WBC (Bld) 1.3 % Normal 0.0-6.0 [facility] Comment on above: Performed By: #### 5 7021-8 #### ESTELLE Remy ([id number]) [facility] ([facility]) [address] [place] [address] 10924 Erythrocyte distribution width (RBC) [Ratio] 11.8 % Normal 11.5-14.5 [facility] Comment on above: Performed By: #### 5 7021-8 #### ESTELLE Remy ([id number]) [facility] ([facility]) [address] [place] [address] Hematocrit (Bld) [Volume fraction] 42.8 % Normal 36.0-46.0 [facility] Comment on above: Performed By: #### 5 7021-8 #### ESTELLE Remy ([id number]) [facility] ([facility]) [address] [place] [address] Hemoglobin (Bld) [Mass/Vol] 14.6 g/dL Normal 12.0-16.0 [facility] Comment on above: Performed By: #### 5 7021-8 #### ESTELLE Remy ([id number]) [facility] ([facility]) [address] [place] [address] Immature granulocytes (Bld) [#/Vol] 0.02 x10*3/uL Normal 0.00-0.70 [facility] Comment on above: Performed By: #### 5 7021-8 #### ESTELLE Remy ([id number]) [facility] ([facility]) [address] [place] [address] [place] [address] Immature granulocytes/100 WBC (Bld) 0.3 % Normal 0.0-0.9 [facility] Comment on above: Result Comment: Joan ture Granulocyte Count (IG) includes promyelocytes, myelocytes and metamyelocytes but does not include bands. Percent differential counts (%) should be interpreted in the context of the absolute cell counts (cells/UL). Performed By: #### 5 7021-8 #### ESTELLE Remy ([id number]) [facility] ([facility]) [address] [place] [address]204 Lymphocytes (Bld) [#/Vol] 3.07 x10*3/uL Normal 1.20-4.80 [facility] Comment on above: Performed By: #### 5 7021-8 #### ESTELLE Remy ([id number]) [facility] ([facility]) [address] [place] [address] Lymphocytes/100 WBC (Bld) 44.8 % Normal 13.0-44.0 [facility] Comment on above: Performed By: #### 5 7021-8 #### ESTELLE Remy ([id number]) [facility] ([facility]) [address] [place] [address] 75649 MCH (RBC) [Entitic mass] 32.1 pg Normal 26.0-34.0 [facility] Comment on above: Performed By: #### 5 7021-8 #### ESTELLE Remy ([id number]) [facility] ([facility]) [address] [place] [address] 52112 MCHC (RBC) [Mass/Vol] 34.1 g/dL Normal 32.0-36.0 [facility] Comment on above: Performed By: #### 5 7021-8 #### ESTELLE ANGEL L ([id number]) [facility] ([facility]) [address] [place] [address] 98661 MCV (RBC) [Entitic vol] 94 fL Normal 80-100 [facility] Comment on above: Performed By: #### 5 7021-8 #### ESTELLE Remy ([id number]) [facility] [facility]) [address] [place] [address] Monocytes (Bld) [#/Vol] 0.49 x10*3/uL Normal 0.10-1.00 [facility] Comment on above: Performed By: #### 5 7021-8 #### ESTELLE Remy ([id number]) [facility] ([facility]) [address] [place] [address] 39772 Monocytes/100 WBC (Bld) 7.1 % Normal 2.0-10.0 [facility] Comment on above: Performed By: #### 5 7021-8 #### ESTELLE Remy ([id number]) [facility] ([facility]) [address] [place] [address] 18050 Neutrophils (Bld) [#/Vol] 3.14 x10*3/uL Normal 1.20-7.70 [facility] Comment on above: Result Comment: Perc ent differential counts (%) should be interpreted in the context of the absolute cell counts (cells/uL). Performed By: #### 5 7021-8 #### ESTELLE Remy ([id number]) [facility] ([facility]) [address] [place] [address] 07383 Neutrophils/100 WBC (Bld) 45.8 % Normal 40.0-80.0 [facility] Comment on above: Performed By: #### 5 7021-8 #### ESTELLE Remy ([id number]) [facility] ([facility]) [address] [place] [address] 83987 Nucleated RBC/100 WBC (Bld) [Ratio] 0.0 /100 WBCs Normal 0.0-0.0 [facility] Comment on above: Performed By: #### 5 7021-8 #### ESTELLE Remy ([id number]) [facility] ([facility]) [address] [place] [address] 82179 Platelets (Bld) [#/Vol] 238 x10*3/uL Normal 150-450 [facility] Comment on above: Performed By: #### 5 7021-8 #### ESTELLE Remy ([id number]) [facility] ([facility]) [address] [place] [address] RBC (Bld) [#/Vol] 4.55 x10*6/uL Normal 4.00-5.20 [facility] Comment on above: Performed By: #### 5 7021-8 #### ESTELLE Remy ([id number]) [facility] ([facility]) [address] [place] [address] 73191 WBC (Bld) [#/Vol] 6.9 x10*3/uL Normal 4.4-11.3 [facility] Comment on above: Performed By: #### 5 7021-8 #### ESTELLE Remy ([id number]) [facility] ([facility]) [address] [place] [address] 19189 Comprehensive metabolic 2000 panelon 02-03-2024 Albumin BCP dye [Mass/Vol] 4.2 g/dL Normal 3.4-5.0 [facility] Comment on above: Performed By: #### 2 4323-8 #### ESTELLE Remy ([id number]) [facility] ([facility]) [address] [place] [address] 14565 ALP [Catalytic activity/Vol] 126 U/L High 33-110 [facility] Comment on above: Performed By: #### 2 4323-8 #### ESTELLE Remy ([id number]) [facility] ([facility]) [address] [place] [address] 62601 ALT With P-5'-P [Catalytic activity/Vol] 12 U/L Normal 7-45 [facility] Comment on above: Result Comment: Arpita ents treated with Sulfasalazine may generate falsely decreased results for ALT. Performed By: #### 2 4323-8 #### ESTELLE Remy ([id number]) [facility] ([facility]) [address] [place] [address] Anion gap [Moles/Vol] 13 mmol/L Normal 10-20 [facility] Comment on above: Performed By: #### 2 4323-8 #### ESTELLE Remy ([id number]) [facility] ([facility]) [address] [place] [address] 51565 AST With P-5'-P [Catalytic activity/Vol] 15 U/L Normal 9-39 [facility] Comment on above: Performed By: #### 2 4323-8 #### ESTELLE Remy (99659) [facility] ([facility]) [address] [place] [address] 37699 Bilirubin [Mass/Vol] 0.5 mg/dL Normal 0.0-1.2 [facility] Comment on above: Performed By: #### 2 4323-8 #### ESTELLE Remy ([id number]) [facility] ([facility]) [address] [place] [address] 43154 Calcium [Mass/Vol] 10.2 mg/dL Normal 8.6-10.6 [facility] Comment on above: Performed By: #### 2 4323-8 #### ESTELLE Remy (61002) [facility] ([facility]) [address] [place] [address] 55995 Chloride [Moles/Vol] 99 mmol/L Normal 98-107 [facility] Comment on above: Performed By: #### 2 4323-8 #### ESTELLE ANGEL L ([id number]) [facility] ([facility]) [address] [place] [address] 80027 CO2 [Moles/Vol] 29 mmol/L Normal 21-32 [facility] Comment on above: Performed By: #### 2 4323-8 #### ESTELLE Remy ([id number]) [facility] ([facility]) [address] [place] [address] 54109 Creatinine [Mass/Vol] 0.75 mg/dL Normal 0.50-1.05 [facility] Comment on above: Performed By: #### 2 4323-8 #### ESTELLE Remy (16483) [facility] ([facility]) [address] [place] [address] GFR/1.73 sq M.predicted MDRD (S/P/Bld) [Vol rate/Area] mL/min/{1.73_m2} Normal >60 [facility] Comment on above: Result Comment: Calc ulations of estimated GFR are performed using the 2020 CKD-EPI Study Refit equation without the race variable for the IDMS-Traceable creatinine methods. https://jasn.asnjournals.org/content/early//ASN.7472119 988 Performed By: #### 2 4323-8 #### ESTELLE Remy ([id number]) [facility] ([facility]) [address] [place] [address] 17007 Glucose [Mass/Vol] 100 mg/dL High 74-99 [facility] Comment on above: Performed By: #### 2 4323-8 #### ESTELLE ANGEL L (10461) [facility] ([facility]) [address] [place] [address] 81127 Potassium [Moles/Vol] 4.6 mmol/L Normal 3.5-5.3 [facility] Comment on above: Performed By: #### 2 4323-8 #### ESTELLE ANGEL L (67994) [facility] ([facility]) [address] [place] [address] 30914 Protein [Mass/Vol] 6.7 g/dL Normal 6.4-8.2 [facility] Comment on above: Performed By: #### 2 4323-8 #### ESTELLE ANGEL L (50683) [facility] ([facility]) [address] [place] [address] 96431 Sodium [Moles/Vol] 136 mmol/L Normal 136-145 [facility] Comment on above: Performed By: #### 2 4323-8 #### ESTELLE ANGEL L (46466) [facility] ([facility]) [address] [place] [address] 64867 Urea nitrogen [Mass/Vol] 13 mg/dL Normal 6-23 [facility] Comment on above: Performed By: #### 2 4323-8 #### ESTELLE Remy ([id number]) [facility] ([facility]) [address] [place] [address] 25308 Lipid 1996 panelon 4 Cholesterol [Mass/Vol] 214 mg/dL High 0-199 [facility] Comment on above: Result Comment: Age [...] By: #### 2 4331-1 #### ESTELLE Remy (94189) [facility] ([facility]) [address] [place] [address] Cholesterol in HDL [Mass/Vol] 55.2 mg/dL Normal [facility] Comment on above: Result Comment: Age Very Low Low Normal High 0-19 Y < 35 < 40 40-45 ---- 20-24 Y ---- < 40 >45 ---- >24 Y ---- < 40 40-60 >60 Performed By: #### 2 4331-1 #### ESTELLE Remy (74633) [facility] ([facility]) [address] [place] [address] Cholesterol in LDL [Mass/Vol] 129 mg/dL High <=99 [facility] Comment on above: Result Comment: Near Borderline AGE Desirable Optimal High High Very High 0-19 Y 0 - 109 --- 110-129 >/= 130 ---- 20-24 Y 0 - 119 --- 120-159 >/= 160 ---- >24 Y 0 - 99 100-129 130-159 160-189 >/=190 Performed By: #### 2 4331-1 #### ESTELLE Remy (14777) [facility] ([facility]) [address] [place] [address] Cholesterol in VLDL [Mass/Vol] 30 mg/dL Normal 0-40 [facility] Comment on above: Performed By: #### 2 4331-1 #### ESTELLE Remy ([id number]) [facility] ([facility]) [address] [place] [address] 21140 CHOLESTEROL/HDL RATIO 3.9 Normal [facility] Comment on above: Result Comment: Ref Values Desirable < 3.4 High Risk > 5.0 Performed By: #### 2 4331-1 #### ESTELLE Remy (13396) [facility] ([facility]) [address] [place] [address] 65303 NON HDL CHOLESTEROL 159 mg/dL High 0-149 [facility] Comment on above: Result Comment: Age Desirable Borderline High High Very High 0-19 Y 0 - 119 120 - 144 >/= 145 >/= 160 20-24 Y 0 - 149 150 - 189 >/= 190 ---- >24 Y 30 mg/dL above LDL Cholesterol goal Performed By: #### 2 4331-1 #### ESTELLE Remy ([id number]) [facility] ([facility]) [address] [place] [address] 90621 Triglyceride [Mass/Vol] 149 mg/dL Normal 0-149 [facility] Comment on above: Result Comment: Age [...] #### 2 4331-1 #### ESTELLE KENNEDYER L ([id number]) [facility] ([facility]) [address] [place] [address] ISAIKELSYon 01-16-2024 CNOV Office Visit ([facility] ) ----- SANDRA SANCHEZ ([id number]) 1970 F Date Time Provider Department 01/16/24 6:30 PM ALONDRA PONCE RUST During your visit today, we recorded the following information about you: Temperature Pulse Respiration Blood pressure 98.4 degrees 87/minute 18/minute 130/86 Weight 68 kg Alondra Ponce APRN.CHURCH MUSICIAN 01/16/2024 6:46 PM Signed Subjective Patient came [...] history is provided by the patient. No wrapper leaf inspector was used. Eye Problem Review of Systems [...] okay with this care plan. Alondra Ponce APRN.CHURCH MUSICIAN Allergies As of Date: 01/16/2024 Noted Allergy [...] erythromycin (R (more content not included)... Normal [facility] CNOVon 12-12-2023 CNOV Office Visit ([facility] ) ----- SANDRA SANCHEZ ([id number]) 1970 F Date Time Provider Department 12/12/23 1:00 PM CANDIDO CHAVEZ [facility] During your visit today, we recorded [...] and eventually stopped when she presented to [facility] during 08/2021. 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 Normal [facility] MR Cervical spine WO and W c [...] limited evaluation on that examination due to zxszq-sv-hmzd. Smaller right prevertebral lesions in the lower [...] content not included)... DIVISION OF RADIOLOGY Provider, [facility] - 10/21/2023 * * *Final Report* [...] limited evaluation on that examination due to nkavj-jv-kdpe. Smaller right prevertebral lesions in the lower [...] the pelvis. IMPRESSION (more content not included)... [facility] MR Lumbar spine WO and W con [...] limited evaluation on that examination due to mgcwl-fn-ruqn. Smaller right prevertebral lesions in the lower [...] content not included)... DIVISION OF RADIOLOGY Provider, [facility] - 10/21/2023 * * *Final Report* * * DATE OF EXAM: Oct 21 2023 11:03AM [facility] 0304 - MRI LUMBAR SPINE WO/W [...] limited evaluation on that examination due to dhogf-mv-kxos. Smaller right prevertebral lesions in the lower [...] pelvis. IMPRESSION I (more content not included)... [facility] MR Pelvis WO and W contrast Issac 10-21-2023 IMPRESSION: Innumerable neurofibromas as described, overall similar in size and extent compared to 10/08/2022. Steam Room Attendant: TAVO Transcribe Date/Time: Oct 21 2023 11:14A Dictated by : RONAL LEYVA MD This examination was interpreted and the report reviewed and electronically signed by: DANIELLA BATEMAN MD on Oct 21 2023 11:56AM [facility] DIVISION OF RADIOLOGY * * *Final Report* * * DATE OF EXAM: Oct 21 2023 11:03AM [facility] 0742 - MRI PELVIS WO/W IVCON [...] suspicious marrow replacing lesions. Hip joints: Large gmovy-do-cjli images of the hips demonstrate mild degenerative [...] represent additional neurofibromas. DIVISION OF RADIOLOGY Provider, [facility] - 10/21/2023 * * *Final Report* [...] suspicious marrow replacing lesions. Hip joints: Large xhzlq-xt-ibir images of the hips demonstrate mild degenerative [...] in size and extent compared to 10/08/2022. Steam Room Attendant: PSCB Transcribe Date/Time: Oct 21 2023 11:14A Dictated by : RONAL LEYVA MD This examination was interpreted and the report reviewed and electronically signed by: DANIELLA BATEMAN MD on Oct 21 2023 11:56AM EST [facility] MR Pelvis WO and W contrast IVOrdered [...] limited evaluation on that examination due to tryui-uw-wtaq. Smaller right prevertebral lesions in the lower [...] included)... DIVISION OF RADIOLOGY Provider, [facility] - 10/21/2023 * * *Final Report* * [...] limited evaluation on that examination due to gzsfv-dt-rymz. Smaller right prevertebral lesions in the lower [...] the pelvis. IMPRESSION (more content not included)... [facility] No Panel Informationon 10-20 IMPRESSION: Innumerable paravertebral [...] and assume there are 5 lumbar-type vertebrae. Steam Room Attendant: [facility] Transcribe Date/Time: Oct 21 2023 11:14A Dictated by : LAVONNE YUEN MD This examination was interpreted and the report reviewed and electronically signed by: LAVONNE YUEN MD on Oct 21 2023 11:39AM [facility] DIVISION OF RADIOLOGY Radiology Study observation (narrative) [facility] No Panel InformationOrdered By: Ccf Provider on 10-21-2023 [facility] URINE CULTURE,BACTERIALon URINE CULTURE,BACTERIAL PATIENT: SANDRA SANCHEZ LOCATION: [address] BILL#: [id number] : 70 AGE: SEX: F ORDERED BY: [...] DEPENDENT NS=NONSUSCEPTIBLE X=REPORTED IN ERROR ___ Normal [facility] Comment on above: Performed By: #### U RINC #### [facility] [address] [place] [address] Culture, urineOrdered By: [facility] georg[facility] George on 11-12-2022 Bacteria identified Cx Nom (U) Presumptive E. coli [facility] Laboratory - Chemistry and C hemistry - challengeon 11-12-2022 Bilirubin Ql (U) Negative [facility] Glucose Ql (U) Negative [facility] Ketones Ql (U) Negative [facility] pH (U) 7.5 [pH] [facility] Specific gravity (U) [Rel density] 1.[address] [facility] Urobilinogen (U) [Mass/Vol] 0.5380545 mg/dL [facility] - Hematology and Cell countson 11-12-2022 Hemoglobin Ql (U) Negative [facility] - Specimen inform ationon 11-12-2022 Clarity (U) Cloudy [facility] Color (U) YELLOW [facility] Laboratory - Urinalysison Nitrite Ql (U) Positive [facility] Protein Ql (U) Negative [facility] No Panel Informationon 11-12 Urine Leukocytes Positive [facility] Urine Non-Hemolyzed Blood Negative [facility] No Panel Informationon 10-08 [facility] DIGITAL MAMM SCREENING W/ TO Valadez 09-02-2022 DIGITAL MAMM SCREENING W/ YONG Patient Name: SANDRA SANCHEZ STUDY: DIGITAL MAMM SCREENING W/ YONG; 09/02/2022 3:29 pm ACCESSION NUMBER(S): [id number] ORDERING CLINICIAN: RAMANDEEP SMALLWOOD INDICATION: Screening. History [...] any future breast imaging appointments, please call [phone]). Patient letter sent SNORM I personally reviewed the images/study and I agree with the findings as stated. This study was interpreted at [place], [place]. Electronically signed by: SÁNCHEZ ZUÑIGA MD Normal [facility] CANNABINOID CONFIRM.URINEon 08-03-2022 38-FXQ-4-CARBOXY-THC 78 ng/mL Normal [facility] Comment on above: Result Comment: INTE RPRETIVE INFORMATION: THC Metabolite, Urine, Quantitative Methodology: Quantitative Liquid Chromatography-Tandem Mass Spectrometry Positive cutoff: 15 ng/mL For medical purposes only; not valid for forensic use. The drug analyte detected in this assay, 9-carboxy THC, is a metabolite of vufem-8-kdszspoziallhipydlxe (THC). Detection of 9-carboxy THC suggests use [...] developed and its performance characteristics determined by [employer]. It has not been cleared or approved by the [place] Food and Drug Administration. This test was performed in a CLIA certified laboratory and is intended for clinical purposes. Performed By: [facility] [address] [place] [address] Web Coordinator: Lavonne Rubalcava MD, PhD Performed By: #### C ANCN #### [facility] [address] [place] [address] OPIATE/OPIOID/BENZO EXTENDED PRESCRIPTION COMPLIANCEon 08-01-2022 6-ACETYLMORPHINE <25 Normal Cutoff <25 [facility] Comment on above: Performed By: #### D SBOP #### [facility] [address] [place] [address] 7-AMINOCLONAZEPAM <25 Normal Cutoff <25 [facility] Comment on above: Performed By: #### D SBOP #### [facility] [address] [place] [address] ALPHA-HYDROXYALPRAZO RIVAS <25 Normal Cutoff <25 [facility] Comment on above: Performed By: #### D SBOP #### [facility] [address] [place] [address] ALPHA-HYDROXYMIDAZOL AM <25 Normal Cutoff <25 [facility] Comment on above: Performed By: #### D SBOP #### [facility] [address] [place] [address] ALPRAZOLAM <25 Normal Cutoff <25 [facility] Comment on above: Performed By: #### D SBOP #### [facility] [address] [place] [address] CHLORDIAZEPOXIDE <25 Normal Cutoff <25 [facility] Comment on above: Performed By: #### D SBOP #### [facility] [address] [place] [address] CLONAZEPAM <25 Normal Cutoff <25 [facility] Comment on above: Performed By: #### D SBOP #### [facility] [address] [place] [address] CODEINE <50 Normal Cutoff <50 [facility] Comment on above: Performed By: #### D SBOP #### [facility] [address] [place] [address] DIAZEPAM <25 Normal Cutoff <25 [facility] Comment on above: Performed By: #### D SBOP #### [facility] [address] [place] [address] EDDP,U <25 Normal Cutoff <25 [facility] Comment on above: Result Comment: The performance [...] testing. Performed By: #### D SBOP #### [facility] [address] [place] [address] FENTANYL CONFIRM,U <2.5 Normal Cutoff<2.5 [facility] Comment on above: Performed By: #### D SBOP #### [facility] [address] [place] [address] HYDROCODONE <25 Normal Cutoff <25 [facility] Comment on above: Performed By: #### D SBOP #### [facility] [address] [place] [address] HYDROMORPHONE <25 Normal Cutoff <25 [facility] Comment on above: Performed By: #### D SBOP #### [facility] [address] [place] [address] LORAZEPAM <25 Normal Cutoff <25 [facility] Comment on above: Performed By: #### D SBOP #### [facility] [address] [place] [address] METHADONE,U <25 Normal Cutoff <25 [facility] Comment on above: Performed By: #### D SBOP #### [facility] [address] [place] [address] MIDAZOLAM <25 Normal Cutoff <25 [facility] Comment on above: Performed By: #### D SBOP #### [facility] [address] [place] [address] MORPHINE <50 Normal Cutoff <50 [facility] Comment on above: Performed By: #### D SBOP #### [facility] [address] [place] [address] NORDIAZEPAM <25 Normal Cutoff <25 [facility] Comment on above: Performed By: #### D SBOP #### [facility] [address] [place] [address] NORFENTANYL CONFIRM,U <2.5 Normal Cutoff<2.5 [facility] Comment on above: Result Comment: The performance [...] Performed By: #### D SBOP #### [facility] [address] [place] [address] NORHYDROCODONE <25 Normal Cutoff <25 [facility] Comment on above: Performed By: #### D SBOP #### [facility] [address] [place] [address] NOROXYCODONE <25 Normal Cutoff <25 [facility] Comment on above: Performed By: #### D SBOP #### [facility] [address] [place] [address] O-DESMETHYLTRAMADOL, U <50 Normal Cutoff <50 [facility] Comment on above: Result Comment: The performance [...] testing. Performed By: #### D SBOP #### [facility] [address] [place] [address] OXAZEPAM <25 Normal Cutoff <25 [facility] Comment on above: Performed By: #### D SBOP #### [facility] [address] [place] [address] OXYCODONE <25 Normal Cutoff <25 [facility] Comment on above: Performed By: #### D SBOP #### [facility] [address] [place] [address] OXYMORPHONE <25 Normal Cutoff <25 [facility] Comment on above: Result Comment: The performance [...] testing. Performed By: #### D SBOP #### [facility] [address] [place] [address] TEMAZEPAM <25 Normal Cutoff <25 [facility] Comment on above: Result Comment: The performance [...] testing. Performed By: #### D SBOP #### [facility] [address] [place] [address] TRAMADOL CONFIRM,U <50 Normal Cutoff <50 [facility] Comment on above: Performed By: #### D SBOP #### [facility] [address] [place] [address] ZOLPIDEM METABOLITE[ZCA] ,U >1000 Abnormal Cutoff <25 [facility] Comment on above: Result Comment: Zolp idem [...] testing. Performed By: #### D SBOP #### [facility] [address] [place] [address] ZOLPIDEM,URINE <25 Normal Cutoff <25 [facility] Comment on above: Performed By: #### D SBOP #### [facility] [address] [place] [address] OPIATE/OPIOID/BENZO EXTENDED PRESCRIPTION COMPLIANCEon 07-30-2022 AMPHETAMINE SCREEN,U Negative Normal NEGATIVE [facility] Comment on above: Result Comment: CUTO FF LEVEL: 500 NG/ML Cross-reactivity has been reported with high concentrations of the following drugs: buproprion, chloroquine, chlorpromazine, ephedrine, mephentermine, fenfluramine, phentermine, phenylpropanolamine, pseudoephedrine, and propranolol. Performed By: #### D SBOP #### [facility] [address] [place] [address] BARBITURATES SCREEN,U Negative Normal NEGATIVE [facility] Comment on above: Result Comment: CUTO FF LEVEL: 200 NG/ML Performed By: #### D SBOP #### [facility] [address] [place] [address] CANNABINOIDS SCREEN,U Positive Abnormal NEGATIVE [facility] Comment on above: Result Comment: CUTO FF LEVEL: 50 NG/ML Performed By: #### D SBOP #### [facility] [address] [place] [address] COCAINE METABOLITE SCREEN,U Negative Normal NEGATIVE [facility] Comment on above: Result Comment: CUTO FF LEVEL: 150 NG/ML Performed By: #### D SBOP #### [facility] [address] [place] [address] Creatinine [Mass/Vol] 143.9 mg/dL Normal [facility] Comment on above: Result Comment: A ur ine creatinine result >= 20 mg/dL is considered valid without suspicion of dilution. Samples with results below this range will automatically reflex to specific gravity testing to verify specimen integrity. Performed By: #### D SBOP #### [facility] [address] [place] [id number] DRUG SCREEN COMMENT. SEE BELOW Normal [facility] Comment on above: Result Comment: Drug screen [...] directors. Performed By: #### D SBOP #### [facility] [address] [place] [id number] PCP SCREEN,U Negative Normal NEGATIVE [facility] Comment on above: Result Comment: CUTO FF LEVEL: 25 NG/ML Cross-reactivity has been reported with dextromethorphan. Performed By: #### D SBOP #### [facility] [address] [place] [address] OPIATE/OPIOID/BENZO EXTENDED PRESCRIPTION COMPLIANCEon 07-29-2022 Lab Specimen Source Normal [facility] Comment on above: Performed By: #### D SBOP #### [facility] [address] [place] [address] XR ESOPHAGRAMon 07-03-2022 [facility] CNTHERAPYon 05-15-2022 CNTHERAPY OT/PT/Speech Visit (SPMBME) ----- SANDRA SANCHEZ ([id number]) 1970 F Date Time Provider Department 05/15/22 1:30 PM CHRISTINA DE ANDA VICKIEE Date Time Provider Department [place] 05/15/2022 1:30 PM [id number], JOYCE HIENKEEE [facility] Reason for Visit: Speech Instrumental Swallow Eval [...] bedtime. ----- Letter Text Letter Text Normal [facility] XR MOD BARIUM SWALLOW W IRA Smith [...] pathology notes. IMPRESSION: See speech pathology notes. Steam Room Attendant: PSCB Transcribe Date/Time: May 16 2022 6:51A Dictated by : KRIS ANGEL MD This examination was interpreted and the report reviewed and electronically signed by: KRIS ANGEL MD on May 16 2022 6:52AM EST [id number] Normal [facility] XR MODIFIED BARIUM SWALLOW W SPEECH THERAPYon 05-15-2022 [facility] No Panel Informationon 05-06 FINAL REPORT Interpreted by: LIT WANG A, MD 05/06/22 19:45 Patient Name: SANDRA SANCHEZ STUDY: US PELVIS TRANSABDOMINAL WITH TRANSVAGINAL; 05/06/2022 1:48 pm INDICATION: post-menopausal bleeding, no pelvic pain N95.0: Postmenopa Normal [facility] Work Phone: 1,25-dihydroxyvitamin D3 [Ma ss/Vol]on 03-12-2022 1,25 Dihydroxy Vitamin Total 62.0 pg/mL 19.9 - 79.3 pg/mL [facility] FOLATE SERUMon 03-12-2022 Folate [Mass/Vol] 12.5 ng/mL >4.7 ng/mL [facility] T4 FREE/FREE THYROXon 2021 Free T4 [Mass/Vol] 1.0 ng/dL 0.9 - 1.7 ng/dL [facility] TSH BLDon 03-12-2022 TSH Qn 1.450 m[IU]/L 0.270 - 4.200 mIU/L [facility] VITAMIN B12 BLOODon 03-12-20 Cobalamin (Vitamin B12) [Mass/Vol] 574 pg/mL 232 - 1,245 pg/mL [facility] Xray Bone Density, Dexa 1 or More Siteson 02-25-2022 DXA Bone [Mass/Area] Bone density FINAL REPORT Interpreted by: TONI PHOENIX HANAUER, MD 02/25/22 15:13 Name: SANDRA SANCHEZ Date: 1970 Height: 65.0 in. Gender: Female Exam Date: 02/25/2022 Weight: 132.0 lbs. Indications: Osteopenia of b Normal [facility] Work Phone: Laboratory - Chemistry and C hemistry - challengeon 10-16-2021 Albumin BCP dye [Mass/Vol] 4.2 g/dL 3.4 - 5.0 [facility] Work Phone: ALP [Catalytic activity/Vol] 112 U/L above high threshold 33 - 110 [facility] Work Phone: ALT With P-5'-P [Catalytic activity/Vol] 11 U/L 7 - 45 [facility] Work Phone: Comment on above: Patients treated wit h Sulfasalazine may generate falsely decreased results for ALT. Anion gap [Moles/Vol] 12 mmol/L 10 - 20 [facility] Work Phone: AST With P-5'-P [Catalytic activity/Vol] 16 U/L 9 - 39 [facility] Work Phone: Bilirubin [Mass/Vol] 0.5 mg/dL 0.0 - 1.2 [facility] Work Phone: Calcium [Mass/Vol] 9.3 mg/dL 8.6 - 10.6 [facility] Work Phone: Chloride [Moles/Vol] 104 mmol/L 98 - 107 [facility] Work Phone: CO2 [Moles/Vol] 26 mmol/L 21 - 32 [facility] Work Phone: Creatinine [Mass/Vol] 0.69 mg/dL See Below [facility] Work Phone: Comment on above: Reference Range: 0.5 0 - 1.05 Glucose [Mass/Vol] 82 mg/dL 74 - 99 [facility] Work Phone: Potassium [Moles/Vol] 5.0 mmol/L 3.5 - 5.3 [facility] Work Phone: Protein [Mass/Vol] 6.9 g/dL 6.4 - 8.2 [facility] Work Phone: Sodium [Moles/Vol] 137 mmol/L 136 - 145 [facility] Work Phone: TSH Qn 1.80 m[IU]/L See Below [facility] Work Phone: Comment on above: Reference Range: 0.4 4 - 3.98 TSH testing is performed using different testing methodology at [facility] than at other [facility]. Direct result comparisons should only be made within the same method. Urea nitrogen [Mass/Vol] 12 mg/dL 6 - 23 [facility] Work Phone: Laboratory - Cytologyon 05-3 Cytology report Cyto stain.thin prep Doc (Cvx/Vag) [facility] Work Phone: Cytology report Cyto stain.thin prep Doc (Cvx/Vag) Date of Procedure: 10/16/2021 Pathologist: [facility], Cytology Date Reported: 11/01/2021 Date Received: 10/16/2021 Submitting Physician: RAMANDEEP TOM DO Attending Physician: RAMANDEEP Treviño [facility] Work Phone: Laboratory - Hematology and Cell countson 10-16-2021 Erythrocyte distribution width (RBC) [Ratio] 12.0 % See Below [facility] Work Phone: Comment on above: Reference Range: 11. 5 - 14.5 Hematocrit (Bld) [Volume fraction] 42.0 % See Below [facility] Work Phone: Comment on above: Reference Range: 36. 0 - 46.0 Hemoglobin (Bld) [Mass/Vol] 14.0 g/dL See Below [facility] Work Phone: Comment on above: Reference Range: 12. 0 - 16.0 MCHC (RBC) [Mass/Vol] 33.3 g/dL See Below [facility] Work Phone: Comment on above: Reference Range: 32. 0 - 36.0 MCV (RBC) [Entitic vol] 98 fL 80 - 100 [facility] Work Phone: Platelets (Bld) [#/Vol] 190 10*3/uL 150 - 450 [facility] Work Phone: RBC (Bld) [#/Vol] 4.30 {x10E12/L} See Below [facility] Work Phone: Comment on above: Reference Range: 4.0 0 - 5.20 WBC (Bld) [#/Vol] 5.4 10*3/uL 4.4 - 11.3 [facility] Work Phone: Laboratory - Urinalysison Yeast LM Ql (Urine sed) ABSENT [facility] Work Phone: No Panel Informationon 10-16 0.0 {/100_WBC} 0.0-0.0 [facility] Work Phone: >90 >90 [facility] Work Phone: Comment on above: CALCULATIONS OF CHALINO MATED GFR ARE PERFORMED USING THE 2020 CKD-EPI STUDY REFIT EQUATION WITHOUT THE RACE VARIABLE FOR THE IDMS-TRACEABLE CREATININE METHODS.https://jasn.asnjournals.org/content//ASN .7865234209 Not at all - 0 [facility] Work Phone: Minimal Anxiety [facility] Work Phone: 0 1 [facility] Work Phone: Comment on above: Over [...] Not at all - 0 PRESENT Abnormal [facility] Work Phone: 7 1 Abnormal [facility] Work Phone: Comment on above: Interpretation of e Noe Score0-3.....Normal vaginal microbiota4-6.....Intermediate results7-10....Bacterial vaginosis Office Visit ([facility])on 10-16-2021 Follow-up visit Diagnoses/Problems Postmenopausal bleeding [...] Intake Activity Log Entry by Bo Huerta ([email or web address]) on 2021-01-16 05:15 Status Change: Automated status [...] pelvic pain Screening for cervical cancer PAP [employer], Cytology; Status:Hold For - Specimen/Data Collection,Retrospective Authorization; [...] chemo reaction vs endometrial overgrowth vs other [employer] referral placed today. Pap was completed today as well while doing pelvic exam.- difficult to visualize cervix, pt to see press assistant, will let her know if pap needs repeated if no transformation zone Lymphedema-- referral to lymphedema clinic placed today I encourage you to wear compression stockings. I recommend 10-15 mmHg stockings to help with swelling. I recommend VIVE compression stockings, which can be purchased on [employer]. Elevate your legs as much as possible [...] [facility] Work Phone: PHQ-9 1-Several days AND[facility]ACarroll County Memorial HospitalRamandeep [facility] Work Phone: PHQ-9 Not difficult at all MP-Cali reyez [facility] Work Phone: Tobacco Screening.on 022 Tobacco use status CPHS b) No [facility] Work Phone: Tobacco Screening. Adult MP-Sergey mansfield [facility] Work Phone: No Panel Informationon 09-17 [facility] Ophthalmic Eye [place] 2021 Ophthalmic Eye Exam DOCUMENT REVIEWED BY : Parmjit Howard DOCUMENT SIGNED ELECTRONICALLY BY Parmjit Howard ON 09/07/2021 01:34:26 PM [place] [address] [address] [place] [address] THIS DOCUMENT WAS CREATED ON: 09/07/2021 01:34:19 PM BY: Parmjit Taylor performed XUAKG-Hcpp-be Exam Date: Tuesday, September 07, 2021 PATIENT [...]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 Phone: [facility] Work Phone: Start: 11-12-2022 End: 11-12-2022 ambulatory No Primary Care Physician [facility] Work Phone: Start: 11-12-2022 End: 11-12-2022 Patient encounter procedure No Primary Care Physician [facility]-Laboratory, Specimen Work Phone: Start: 11-12-2022 End: 11-12-2022 Patient encounter procedure No Primary Care Physician [facility] Work Phone: Start: 10-15-2022 End: 10-15-2022 Patient encounter procedure Dre Monte MD Work Phone: [facility] Comment on above: Nerve sheath tumor ( Primary Dx); Benign neoplasm of peripheral nerve sheath; Chronic pain due to neoplasm Start: 10-08-2022 End: 10-08-2022 Subsequent hospital visit by physician [facility] (I-Stat/1.5t) Work Phone: Radiology Comment on above: 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] Start: 09-02-2022 ambulatory DO RAMANDEEP MELARA Facility:[id number] Start: 07-29-2022 End: 07-29-2022 Patient encounter procedure Ramandeep Holt Jordan Saritha DO Work Phone: [facility] Work Phone: Comment on above: Medicare annual well ness visit, subsequent (Primary Dx); Screening for colon cancer; Medication management; Insomnia, unspecified type; Breast cancer screening by mammogram; Neurofibromatosis (CMS/HCC); Osteopenia of multiple sites; Encounter for special screening examination Start: 07-15-2022 Telephone encounter Marina [facility] [place] Comment on above: Appointment Start: 07-03-2022 End: [...] Telephone encounter Dre lopez MD Work Phone: [facility] Comment on above: Results SOFYA first available Start: 05-15-2022 End: 05-16-2022 ambulatory DRE LOBBOUS Facility:[facility] Start: 05-15-2022 Telephone encounter Dre lopez MD Work Phone: [facility] Comment on above: Patient Update Start: 05-15-2022 End: 05-16-2022 ambulatory Christina De 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 Work 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: [facility] Comment on above: Nerve sheath tumor ( Primary Dx); Benign neoplasm of peripheral nerve sheath Start: 05-15-2022 End: 05-15-2022 Subsequent hospital visit by physician Gi/[facility] Work Phone: Radiology Comment on above: 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] Start: 05-10-2022 Refill Nikolai Giron MD Work Phone: [facility] Comment on above: Refill Request Start: 05-07-2022 AUDIT Ramandeep eLal Work Phone: [facility] Work Phone: Start: 05-06-2022 ambulatory DO RAMANDEEP MELARA Facility:[id number] Start: 04-29-2022 Refill Dre Dawkins Work Phone: [facility] Comment on above: Refill Request Start: 04-15-2022 Orders Only Dre Dawkins Work Phone: [facility] Comment on above: Nerve sheath tumor ( Primary Dx); Benign neoplasm of peripheral nerve sheath Start: 04-05-2022 ambulatory No Pcp Yovanyate Titi [employer] Start: 04-05-2022 Refill Dre Dawkins Work Phone: [facility] Comment on above: Refill Request Start: 03-28-2022 Refill Dre Dawkins Work Phone: [facility] Comment on above: Refill Request Start: 03-12-2022 End: 03-12-2022 Patient encounter procedure Dre Monte MD Work Phone: [facility] Comment on above: Nerve sheath tumor ( Primary Dx); Abnormal findings on diagnostic imaging of other specified body structures Start: 02-28-2022 Chart Update Ramandeep Yanet Biswas ostran Work Phone: [facility] Work Phone: Start: 02-26-2022 Refill Dre Lobbous M D Work Phone: [facility] Comment on above: Refill Request Start: 02-26-2022 AUDIT Ramandeeptereza Biswas ostran Work Phone: [facility] Work Phone: Start: 02-25-2022 ambulatory DO RAMANDEEP RUZI N NOSTRAN Facility:[id number] Start: 02-04-2022 AUDIT Ramandeep Yanet Biswas ostran Work Phone: [facility] Work Phone: Start: 12-02-2021 Refill Dre Lobbous M D Work Phone: [facility] Comment on above: Refill Request Start: 11-14-2021 Telephone encounter Edith chavarria [facility] Work Phone: [facility] Comment on above: Genetic testing Start: 11-12-2021 AUDIT Ramandeep Yanet Ortega N ostran Work Phone: [facility] Work Phone: Start: 11-08-2021 AUDIT Ramandeep Ortega N ostran Work Phone: [facility] Work Phone: Start: 11-04-2021 Chart Update Ramandeep Yanet Biswas ostran Work Phone: [facility] Work Phone: Start: 11-03-2021 Refill Dre Lobbous M D Work Phone: [facility] Comment on above: Refill Request Start: 11-01-2021 End: 11-01-2021 Patient encounter procedure Edith Sanchez [facility] Work Phone: [facility] Comment on above: Benign neoplasm of p eripheral nerve sheath (Primary Dx) Start: 10-17-2021 Chart Update Ramandeep Leal Work Phone: [facility] Work Phone: Start: 10-16-2021 Office outpatient vi sit 25 minutes Ramandeep Tom Work Phone: [facility] Work Phone: Start: 10-06-2021 Refill Dre Dawkins Work Phone: [facility] Comment on above: Refill Request Start: 09-17-2021 End: 09-17-2021 Subsequent hospital visit by physician [employer] [facility] (I-Stat/1.5t) Work Phone: Radiology Comment on above: Benign neoplasm of p eripheral nerve sheath [D36.10] Start: 09-13-2021 AUDIT Ramandeep Leal Work Phone: [facility] Work Phone: Start: 08-22-2021 End: 08-22-2021 Patient encounter procedure Dre Monte MD Work Phone: [facility] Comment on above: Benign neoplasm of p eripheral nerve sheath (Primary Dx); Chronic pain due to neoplasm; Neuropathic pain Start: 07-31-2021 AUDIT Ramandeep Leal Work Phone: DG-Xvreipmqd-Phvohew Work Phone: Start: 07-02-2021 Telephone encounter Ramandeep Melara Work Phone: [facility] Work Phone: Start: 06-29-2021 Patient encounter procedure Ramandeep Tom Work Phone: BW-Egypriejfcbsn-Ilk [facility] Work Phone: Start: 06-13-2021 Office outpatient vi sit 15 minutes Ramandeep Tom Work Phone: [facility] Work Phone: Start: 06-13-2021 Patient encounter procedure Ramandeep Holt Jordan Melara Work Phone: [facility] Work Phone: Start: 04-13-2021 Patient encounter procedure Ramandeep Holt Jordan Agostotran Work Phone: [facility]-Vascular Surgery-[facility] Work Phone: Start: 04-09-2021 AUDIT Ramandeep Yanet Biswas ostran Work Phone: FK-Nlovmlcgp-Fsqrqra Work Phone: Start: 03-30-2021 Patient encounter procedure Ramandeep Holt Jordan Melara Work Phone: EB-Jrgbgzpnhzfzl-Xow [facility] 3200 Work Phone: Start: 01-16-2021 Patient encounter procedure Ramandeep Holt Jordan Melara Work Phone: GB-Diydwncyc-Jvumqcq Work Phone: Start: 01-05-2021 Chart Update Ramandeep Holt Jordan bermeo Work Phone: [facility] Work Phone: Start: 01-04-2021 Office outpatient vi sit 15 minutes Ramandeep Tom Work Phone: [facility] Work Phone: Start: 10-19-2020 Patient encounter procedure Ramandeeptereza Tom Work Phone: NO-Snipbxyeg-IFJGS [facility] Work Phone: Start: 01-04-2020 Patient [...] 11-24-2016 Emergency department patient visit Rigo Gaston Facility:[facility] Patient encounter procedure Ramandeep Tom Work Phone: BL-Pdqfyzgtl-CSISH [place] Work Phone: Procedures Date Procedure [...] Screening for malign ant neoplasm of colon [facility] Start: 02-02-2029 Lipid panel [facility] Start: 02-02-2027 Diabetes Screening Diabetes Screenin [facility] Start: 10-16-2026 Screening for malign ant neoplasm of cervix [facility] Start: 01-04-2026 Lipid panel [facility] Start: 05-02-2025 COVID-19 Vaccine () COVID-19 Vaccine () [facility] Comment on above: Postponed from 01/17 (Other System Reasons) Start: 05-02-2025 COVID-19 Vaccine () COVID-19 Vaccine () [facility] Comment on above: Postponed from 01/17 (Other System Reasons) Start: 04-20-2025 End: 04-20-2025 Patient encounter procedure 04/20/2025 2:00 PM EST Office Visit [facility] [address] [facility] [address] [place] [address] Michelle Menchaca MD [address] [facility], [address] [place], [place] [phone] [facility] Start: 03-01-2025 Screening for malign ant neoplasm of breast [facility] Start: 01-17-2025 Influenza vaccination [facility] Start: 12-06-2024 End: 12-06-2024 Patient encounter procedure 12/06/2024 1:30 PM EDT Office Visit [facility] [address] [place] [address] Elayne Sow PA-C [address] [place] [address] Medical massage, physical therapy [facility] Comment on above: Medical massage, phy sical therapy Start: 11-28-2024 [facility] Start: 11-17-2024 End: 11-17-2024 Telemedicine consultation with patient 11/17/2024 3:30 PM EDT Telemedicine [facility] [address] [facility] [address] [place] [address] Mcihelle Menchaca MD [address] [facility], [address] [place], [place] [phone] [facility] Start: 11-15-2024 COVID-19 Vaccine (#1) COVID-19 Vacci ne (#1) [facility] Comment on above: Postponed from 04/03 (Other System Reasons) Start: 11-15-2024 Influenza vaccination Influenza Vacc ine (#1) [facility] Comment on above: Postponed from 01/17 (Patient Refused) Start: 11-04-2024 End: 11-04-2024 Patient encounter procedure 11/04/2024 3:00 PM EDT Office Visit [facility] [address] [place] [address] Dre Monte MD [address] [place] [address] MRI C, T, L, pelvis with contrast in 1 year in [place] followed by in person visit. [facility] Comment on above: MRI C, T, L, pelvis with contrast in 1 year in [place] followed by in person visit. Start: 10-16-2024 Screening for malign ant neoplasm of cervix [facility] Start: 10-15-2024 End: 10-22-2024 Bacteria identified in Urine by Culture [facility] Service Area Work Phone: Comment on above: Expected: 10/15/2024 (Approximate), Expires: 10/22/2024 Start: 10-15-2024 End: 10-15-2025 CBC W Auto Differential panel - Blood CBC and Auto Differential Lab Routine RUQ abdominal pain Expected: 10/15/2024 (Approximate), Expires: 10/15/2025 [facility] Work Phone: Comment on above: Expected: 10/15/2024 (Approximate), Expires: 10/15/2025 Start: 10-15-2024 End: 10-15-2025 Comprehensive metabolic 2000 panel - Serum or Plasma Comprehensive Metabolic Panel Lab Routine RUQ abdominal pain Expected: 10/15/2024 (Approximate), Expires: 10/15/2025 [facility] Work Phone: Comment on above: Expected: 10/15/2024 (Approximate), Expires: 10/15/2025 Start: 10-15-2024 End: 10-15-2025 US Abdomen RUQ US gallbladder Imaging Routine RUQ abdominal pain Expected: 10/15/2024, Expires: 10/15/2025 [facility] Work Phone: Comment on above: Expected: 10/15/2024 , Expires: 10/15/2025 Start: 08-19-2024 Medicare Annual Well ness Visit Medicare Annual Wellness Visit (AWV) [facility] Start: 08-05-2024 End: 08-05-2024 Patient encounter procedure 08/05/2024 1:00 PM EDT Office Visit [facility] [address] [place] [phone] Ramandeep Tom DO [address] [facility], [address] [place] [address] [facility] Start: 03-16-2024 End: 03-16-2024 Patient encounter procedure 03/16/2024 11:00 AM EDT Appointment [address] [phone] [facility] Start: 03-01-2024 End: 03-01-2024 Patient encounter procedure [facility] Start: 02-27-2024 End: 08-18-2024 DXA Skeletal system Views for bone density XR DEXA bone density Imaging Routine Postmenopausal estrogen deficiency Expected: 02/27/2024, Expires: 08/18/2024 [facility] Work Phone: Comment on above: Expected: 02/27/2024 , Expires: 08/18/2024 Start: 02-19-2024 End: 01-15-2024 CBC panel - Blood by Automated count CBC Lab Routine Neurofibromatosis (CMS/HCC) Expected: 02/19/2024 (Approximate), Expires: 01/15/2024 [facility] Work Phone: Comment on above: Expected: 02/19/2024 (Approximate), Expires: 01/15/2024 Start: 02-19-2024 End: 01-15-2024 Comprehensive metabolic 2000 panel - Serum or Plasma Comprehensive Metabolic Panel Lab Routine Neurofibromatosis (CMS/HCC) Expected: 02/19/2024 (Approximate), Expires: 01/15/2024 [facility] Work Phone: Comment on above: Expected: 02/19/2024 (Approximate), Expires: 01/15/2024 Start: 02-19-2024 End: 01-15-2024 Lipid 1996 panel - Serum or Plasma Lipid Panel Lab Routine Neurofibromatosis (CMS/HCC) Elevated LDL cholesterol level Expected: 02/19/2024 (Approximate), Expires: 01/15/2024 [facility] Work Phone: Comment on above: Expected: 02/19/2024 (Approximate), Expires: 01/15/2024 Start: 02-03-2024 End: 02-02-2025 CBC W Auto Differential panel - Blood CBC and Auto Differential Lab Routine Insomnia, unspecified type Neurofibromatosis (Multi) Expected: 02/03/2024, Expires: 02/02/2025 [facility] Work Phone: Comment on above: Expected: 02/03/2024 , Expires: 02/02/2025 Start: 02-03-2024 End: 02-02-2025 Comprehensive metabolic 2000 panel - Serum or Plasma Comprehensive Metabolic Panel Lab Routine Insomnia, unspecified type Neurofibromatosis (Multi) Expected: 02/03/2024, Expires: 02/02/2025 [facility] Work Phone: Comment on above: Expected: 02/03/2024 , Expires: 02/02/2025 Start: 02-03-2024 End: 02-02-2025 CT for calcium scoring WO contrast and CTA W contrast IV Heart and coronary arteries CT cardiac scoring wo IV contrast Imaging Routine Screening for cardiovascular condition Expected: 02/03/2024, Expires: 02/02/2025 [facility] Service Area Work Phone: Comment on above: Expected: 02/03/2024 , Expires: 02/02/2025 Start: 02-03-2024 End: 02-02-2025 Lipid 1996 panel - Serum or Plasma Lipid Panel Lab Routine Elevated LDL cholesterol level Expected: 02/03/2024, Expires: 02/02/2025 [facility] Work Phone: Comment on above: Expected: 02/03/2024 , Expires: 02/02/2025 Start: 02-03-2024 End: 02-03-2024 Patient encounter procedure 02/03/2024 2:00 PM EDT Office Visit [facility] [address] [place] [address] Jordan Melara Ramandeep HoltDO [address] [facility], [address] [place] [address] [facility] Start: 01-18-2024 Covid-19 Vaccine ( season) Covid-19 Vaccine () [facility] Start: 01-18-2024 Influenza vaccination [facility] Start: 01-06-2024 End: 01-06-2024 Patient encounter procedure 01/06/2024 1:45 PM EDT Office Visit [facility] [address] [place] [id number] Candido Chavez MD [address] [place] [address] [facility] Comment on above: [employer]OTOX Start: 11-28-2023 End: 11-28-2023 ambulatory 11/28/2023 1:20 PM [facility] [address] [place] [address] Mis Bethea, 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 Horan [facility] Comment on above: I was referred by Dr Regina Horan Start: 10-23-2023 End: 10-23-2023 Patient encounter procedure 10/23/2023 8:30 AM EDT Office Visit [facility] [address] [place] [address] Dre Monte MD [address] [id number] MRI Follow Up [facility] Comment on above: MRI Follow Up Start: 09-03-2023 Mammography Mammogram Screening [facility] Start: 09-03-2023 Screening for malign ant neoplasm of breast [facility] Start: 08-19-2023 End: 08-18-2024 Colonoscopy study Colonoscopy Screening; High Risk Patient; dad with hx of colon cancer Endoscopy Routine Screening for colon cancer Expected: 08/19/2023, Expires: 08/18/2024 [facility] Work Phone: Comment on above: Expected: 08/19/2023 , Expires: 08/18/2024 Start: 08-19-2023 End: 10-18-2024 DBT Breast - bilateral BI mammo bilateral screening tomosynthesis Imaging Routine Other screening mammogram Expected: 08/19/2023, Expires: 10/18/2024 [facility] Work Phone: Comment on above: Expected: 08/19/2023 , Expires: 10/18/2024 Start: 07-31-2023 Medicare Annual Well ness Visit Medicare Annual Wellness Visit (AWV) [facility] Start: 07-17-2023 End: 01-15-2024 CBC panel - Blood by Automated count CBC Lab Routine Neurofibromatosis (CMS/HCC) Expected: 07/17/2023 (Approximate), Expires: 01/15/2024 [facility] Work Phone: Comment on above: Expected: 07/17/2023 (Approximate), Expires: 01/15/2024 Start: 07-17-2023 End: 01-15-2024 Comprehensive metabolic 2000 panel - Serum or Plasma Comprehensive Metabolic Panel Lab Routine Neurofibromatosis (CMS/HCC) Expected: 07/17/2023 (Approximate), Expires: 01/15/2024 [facility] Work Phone: Comment on above: Expected: 07/17/2023 (Approximate), Expires: 01/15/2024 Start: 07-17-2023 End: 01-15-2024 Lipid 1996 panel - Serum or Plasma Lipid Panel Lab Routine Healthcare maintenance Expected: 07/17/2023 (Approximate), Expires: 01/15/2024 [facility] Work Phone: Comment on above: Expected: 07/17/2023 (Approximate), Expires: 01/15/2024 Start: 07-17-2023 End: 07-17-2023 Patient encounter procedure 07/17/2023 1:00 PM EST Office Visit [facility] [address] [place] [phone] Ramandeep Tom DO [address] [facility], [address] [place] [address] [facility] Start: 05-19-2023 Behavioral Health Screening Behavioral Health Screening [facility] Start: 01-27-2023 End: 01-27-2023 Patient encounter procedure 01/27/2023 2:00 PM EDT Office Visit [facility] [address] [place] [phone] Fabiola Gold MD [address] [facility], [address] [place] [address] [facility] Start: 01-17-2023 Covid-19 Vaccine ( season) Covid-19 Vaccine ( season) [facility] Start: 01-17-2023 Influenza vaccination [facility] Start: 07-29-2022 End: 09-29-2023 BI mammo bilateral screening tomosynthesis BI mammo bilateral screening tomosynthesis Imaging Routine Breast cancer screening by mammogram Expected: 07/29/2022, Expires: 09/29/2023 [facility] Work Phone: Comment on above: Expected: 07/29/2022 , Expires: 09/29/2023 Start: 07-29-2022 End: 01-30-2024 Colonoscopy Colonoscopy Endoscopy Routine Screening for colon cancer Expected: 07/29/2022, Expires: 01/30/2024 [facility] Service Area Work Phone: Comment on above: Expected: 07/29/2022 , Expires: 01/30/2024 Start: 07-05-2022 Adult depression screening assessment DEPRESSION SCREENING [facility] Start: 06-25-2022 Patient encounter procedure MCRANNUAL, Provider: Ramandeep Tom, Status: Pen, Time: 1:30 PM [facility] Work Phone: Start: 05-31-2022 End: 05-23-2023 Echocardiography ECHO Cardiology Routine Other heart disorders in diseases classified elsewhere Neurofibromatosis, unspecified (HCC) Expected: 05/31/2022, Expires: 05/23/2023 [facility] Work Phone: Comment on above: Expected: 05/31/2022 , Expires: 05/23/2023 Start: 05-19-2022 DEPRESSION ASSESSMENT DEPRESSION ASS ESSMENT [facility] Start: 05-09-2022 PAP TESTING PAP TESTING [facility] Start: 05-09-2022 Screening for malign ant neoplasm of cervix [facility] Start: 03-12-2022 End: 05-12-2022 VITAMIN B1 (THIAMINE), WHOLE BLOOD [facility] Work Phone: Comment on above: Expected: 03/12/2022 , Expires: 05/12/2022 Start: 03-06-2022 EPVRETINA, Provider: Parmjit Howard, Status: Pen, Time: 1:00 PM EPVRETINA, Provider: Parmjit Howard, Status: Pen, Time: 1:00 PM [facility] Work Phone: Start: 01-17-2022 Influenza vaccination [facility] Start: 10-16-2021 FUV, Provider: Ramandeep Tom, Status: Pen, Time: 2:00 PM FUV, Provider: Ramandeep Tom, Status: Pen, Time: 2:00 PM [facility] Work Phone: Start: 09-21-2021 EPVRETINA, Provider: Parmjit Howard, Status: Pen, Time: 1:00 PM EPVRETINA, Provider: Parmjit Howard, Status: Pen, Time: 1:00 PM DW-Yhramrjvjjmwo-W [facility] [address] Work Phone: Start: 08-31-2021 EPVRETINA, Provider: Parmjit Howard, Status: Pen, Time: 1:00 PM EPVRETINA, Provider: Parmjit Howard, Status: Pen, Time: 1:00 PM KN-Ocbleeykmqbxw-A [facility] [address] Work Phone: Start: 07-31-2021 ECHO, Provider: CHRISTINA SCHMITT HHVI 2,MG CARD, Status: Pen, Time: 9:50 AM ECHO, Provider: CHRISTINA SCHMITT HHVI 2,MG CARD, Status: Pen, Time: 9:50 AM CG-Vtflbjkzzzdyc-Z [facility] [address] Work Phone: Start: 06-29-2021 EPVDILATED, Provider : Parmjit Howard, Status: Pen, Time: 1:30 PM EPVDILATED, Provider: Parmjit Howard, Status: Pen, Time: 1:30 PM [facility] Work Phone: Start: 05-19-2021 DEPRESSION ASSESSMENT DEPRESSION [facility] Start: 05-03-2021 VIRFUVHOME, Provider : Michael Stanton, Status: Pen, Time: 10:30 AM VIRFUVHOME, Provider: Michael Stanton, Status: Pen, Time: 10:30 AM XQ-Jhfjfezlp-Voizu an Work Phone: Start: 05-03-2021 VIRFUVHOME, Provider : Digna Caruso, Status: Pen, Time: 10:30 AM VIRFUVHOME, Provider: Digna Caruso, Status: Pen, Time: 10:30 AM MG-Vascular Surgery-LAB [facility] Work Phone: Start: 04-03-2021 VIRFUVALDAIRE, Provider : Digna Caruso, Status: Pen, Time: 10:00 AM VIRFUVHOME, Provider: Digna Caruso, Status: Pen, Time: 10:00 AM IN-Zupivnemmahat-Q [facility] [address] Work Phone: Start: 03-09-2021 EPVRETINA, Provider: Parmjit Howard, Status: Pen, Time: 1:00 PM EPVRETINA, Provider: Parmjit Howard, Status: Pen, Time: 1:00 PM HS-Sseznrxvl-DXXIU [facility] Work Phone: Start: 02-06-2021 VIRFUVALDAIRE, Provider : Digna Caruso, Status: Pen, Time: 10:30 AM VIRFUVHOME, Provider: Digna Caruso, Status: Pen, Time: 10:30 AM ZW-Xtoyrogss-Btzvi an Work Phone: Start: 01-16-2021 VIRFUVHOME, Provider : Digna Caruso, Status: Pen, Time: 9:00 AM VIRFUVHOME, Provider: Digna Caruso, Status: Pen, Time: 9:00 AM [facility] Work Phone: Start: 01-04-2021 Patient encounter procedure MCRANNUAL, Provider: Ramandeep Tom, Status: Pen, Time: 2:50 PM SW-Gbbkqgbgh-RYUWS [place] [facility] Work Phone: Start: 11-17-2020 Screening for malign ant neoplasm of breast Mammogram [facility] Start: 2020 Pneumococcal vaccination Pneum ococcal Vaccine (1 of 1 - PCV) [facility] Start: 2020 Pneumococcal Vaccine : 50+ (1 of 1 - PCV) Pneumococcal Vaccine: 50+ (1 of 1 - PCV) [facility] Start: 2020 SHINGRIX VACCINE (1 of 2) SHINGRIX VACCINE (1 of 2) [facility] Start: 2020 Zoster Vaccines (1 of 2) Zoster Vacc joshua (1 of 2) [facility] Start: 05-09-2018 Mammography MAMMOGRAM [facility] Start: 10-02-2015 COLOGUARD (FIT-DNA) COLOGUARD (FIT-D NA) [facility] Start: 10-02-2015 Colonoscopy COLONOSCOPY [facility] Start: 10-02-2015 COLORECTAL CANCER SCREENING COLORECTAL CANCER SCREENING [facility] Start: 10-02-[address] COLONOGRAPHY [facility] Start: 10-02-2015 DIABETES SCREEN DIABETES SCREEN [facility] Start: 10-02-2015 Diabetes Screening Diabetes Screenin g [facility] Start: 10-02-2015 FECAL OCCULT BLOOD FECAL OCCULT BLOO D [facility] Start: 10-02-2015 Lipid 1996 panel - S abdulkadir or Plasma Lipid Screening [facility] Start: 10-02-2015 LIPID SCREEN LIPID SCREEN [facility] Start: 10-02-2015 Screening for malign ant neoplasm of colon [facility] Start: 10-02-2015 SIGMOIDOSCOPY SIGMOIDOSCOPY [facility] Start: 04-11-2011 HPV TESTING HPV TESTING [facility] Start: 04-11-2011 Screening for malign ant neoplasm of cervix HPV Testing [facility] Start: 01-17-1999 Medicare Annual Well ness Visit Medicare Annual Wellness Visit [facility] Start: 1992 DTaP/Tdap/Td Vaccine s (1 - Tdap) DTaP/Tdap/Td Vaccines (1 - Tdap) [facility] Start: 10-02-1991 Screening for malign ant neoplasm of cervix [facility] Start: 1989 Hepatitis B Vaccine (1 of 3 - 19+ 3-dose series) Hepatitis B Vaccine (1 of 3 - 19+ 3-dose series) [facility] Start: 1989 Hepatitis B Vaccines (1 of 3 - 19+ 3-dose series) Hepatitis B Vaccines (1 of 3 - 19+ 3-dose series) [facility] Start: 1989 Urine microalbumin profile [facility] Start: 1988 Anxiety Screening Anxiety Screening [facility] Start: 1988 COVID-19 Vaccine (#1) COVID-19 Vacci ne (#1) [facility] Start: 1988 Depression Screening Depression Scre ening [facility] Start: 1988 HEPATITIS C SCREENING HEPATITIS C SC [facility] [facility] Start: 1988 Hepatitis C screening Hepatitis C [facility] Start: 1988 HIV SCREENING HIV SCREENING [facility] Start: 1988 HIV screening HIV Screening [facility] Start: 1977 DTaP/Tdap/Td Vaccine s (1 - Tdap) DTaP/Tdap/Td Vaccines (1 - Tdap) [facility] Start: 10-02-1975 COVID-19 VACCINE (#1) COVID-19 VACCI NE (#1) [facility] Start: 10-02-1975 COVID-19 VACCINE (1) COVID-19 VACCIN E (1) [facility] Start: 10-02-1971 MMR Vaccines (1 of 1 - Standard series) MMR Vaccines (1 of 1 - Standard series) [facility] Start: 04-03-1971 COVID-19 VACCINE (#1) COVID-19 VACCI NE (#1) [facility] Start: 1970 HEPATITIS B (1 of 3 - 3-dose series) HEPATITIS B (1 of 3 - 3-dose series) [facility] Start: 1970 Hepatitis B Vaccine (1 of 3 - 3-dose series) Hepatitis B Vaccine (1 of 3 - 3-dose series) [facility] Start: 1970 Hepatitis B Vaccines (1 of 3 - 3-dose series) Hepatitis B Vaccines (1 of 3 - 3-dose series) [facility] Start: 1970 HIV screening HIV Screening [facility] Start: 1970 Medicare Annual Well ness Visit Medicare Annual Wellness Visit (AWV) [facility] Start: 1970 Screening for malign ant neoplasm of colon [facility] End: 03-16-2024 CT for calcium scoring WO contrast and CTA W contrast IV Heart and coronary arteries [facility] Service Area Work Phone: Comment on above: Once for 1 Occurrenc es starting 03/16/2024 until 03/16/2024 End: 03-01-2024 DBT Breast - bilateral [facility] Service Area Work Phone: Comment on above: Once for 1 Occurrenc es starting 03/01/2024 until 03/01/2024 End: 05-23-2023 ECG COMPLETE ECG COMPLETE ECG Routine Neurofibromatosis, unspecified (HCC) Neurofibroma Other heart disorders in diseases classified elsewhere 1 Occurrences starting 05/23/2022 until 05/23/2023 [facility] Work Phone: Comment on above: 1 Occurrences starti ng 05/23/2022 until 05/23/2023 End: 11-22-2024 MR Brain WO and W contrast IV MRI BRAIN WO/W IVCON Radiology Routine Nerve sheath tumor 1 Occurrences starting 10/24/2023 until 11/22/2024 [facility] Work Phone: Comment on above: 1 Occurrences starti ng 10/24/2023 until 11/22/2024 End: 11-25-2024 MR Cervical spine WO and W contrast IV MRI CERVICAL SPINE WO/W IVCON Radiology Routine 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 1 Occurrences starting 10/27/2023 until 11/25/2024 [facility] Work Phone: Comment on above: 1 Occurrences starti ng 10/27/2023 until 11/25/2024 End: 11-25-2024 MR Lumbar spine WO and W contrast IV MRI LUMBAR SPINE WO/W IVCON Radiology Routine 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 1 Occurrences starting 10/27/2023 until 11/25/2024 [facility] Comment on above: 1 Occurrences starti ng 10/27/2023 until 11/25/2024 End: 11-25-2024 MR Thoracic spine WO and W contrast IV MRI THORACIC SPINE WO/W IVCON Radiology Routine 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 Work Phone: Opiate/Opioid/Benzo Extended Prescription Compliance Opiate/Opioid/Benzo Extended Prescription Compliance Lab Routine Medication management Insomnia, unspecified type 07/29/2022 3:[address] [facility] Work Phone: OPIATE/OPIOID/BENZO PRESCRIPTION COMPLIANCE OPIATE/OPIOID/BENZO PRESCRIPTION COMPLIANCE Lab Routine Medication management Insomnia, unspecified type 07/29/2022 3:[address] [facility] Work Phone: Patient Education ED Elizabeth Mejia Closed 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 1 Occurrences starting 04/15/2022 until 05/15/2023 [facility] Work Phone: Comment on above: 1 Occurrences starti ng 04/15/2022 until 05/15/2023 SWAB COLLECTION SPECIMEN SWAB CO LLECTION SPECIMEN Lab Routine Benign neoplasm of peripheral nerve sheath Ordered: 11/14/2021 [facility] Work Phone: Comment on above: Ordered: 11/14/2021 End: 10-22-2024 US Abdomen RUQ [facility] Service Area Work Phone: Comment on above: Once for 1 Occurrenc es starting 10/22/2024 until 10/22/2024 Zolpidem [Mass/volum e] in Urine by Confirmatory method Zolpidem Confirmation, Urine Lab Routine Medication management Insomnia, unspecified type 07/29/2022 3:10 PM EDT [facility] Work Phone: [facility] Work Phone: [facility] NEGATED: Highlighted row has been ruled out! Planned Goals not documented [facility] Work Phone: Payers Date Payer Category Payer Self-pay [id number] 2022 Medicaid [id number] 2022 Medicaid [id number] 2016 Unknown 1999 Medicare MEDICARE MEDICAR E A AND B [id number] 1999-Present [phone] [address] [address] [place] [address] Medicare [id number] 1999 Medicare [id number] 1999 Medicare [id number] 1970 Unknown [id number] 1970 Unknown [id number] [id number] 1970 Unknown [id number] .[id number] 1970 Unknown [id number] .840.1.380240.3.579.2.1242 1970 Unknown [id number] .[id number] 1970 Unknown [id number] 1970 Unknown [id number] .[id number] 1970 Unknown [id number] .[id number] 1970 Unknown [id number] 2.840.1.166487.3.579.2.1243 1970 Unknown [id number] 2.840.1.282709.3.579.2.1243 1970 Unknown [id number] [id number] Unknown [id number] Unknown [id number] Unknown [id number] Unknown [id number] Social History Date Type Detail Facility Assertion Tobacco smoking consumption unknown (finding) [facility] Work Phone: Start: 12-08-2013 End: 11-28-2024 Tobacco smoking status NHIS Never smoked tobacco [facility] Start: 08-22-2021 End: 11-04-2024 Alcohol intake Current non-drinker of alcohol (finding) [facility] Start: 1970 Sex Assigned At Not on file [facility] Start: 08-12-2021 End: 03-16-2024 Exposure to SARS-CoV-2 (event) Not sure [facility] Start: 1970 Sex Assigned At Female [facility] Start: 12-08-2013 End: 07-29-2022 Tobacco use and exposure Smokeless tobacco non-user [facility] Work Phone: Start: 11-12-2022 Tobacco smoking status NHIS Unknown if ever smoked [facility] Start: 01-14-2023 End: 11-10-2024 Alcohol intake Ex-drinker (finding) [facility] Work Phone: Start: 01-14-2023 End: 11-17-2024 History of Social function [facility] Work Phone: Start: 01-14-2023 End: 11-17-2024 Tobacco use panel [facility] Work Phone: Start: 09-16-2021 Gender identity Identifies as female gender (finding) [facility] Work Phone: Start: 09-16-2021 Sexual orientation Heterosexual (fin ding) [facility] Work Phone: Adult Depression Screening Assessment 0 [facility] How often to you hav e a drink containing alcohol? Monthly or less [facility] Work Phone: NEGATED: Highlighted rowStart: JOAQUIN History of tobacco use Passive smoker [facility] Work Phone: Medical Equipment Procedure Code Equipment Code Equipment Origin al Text Equipment Identifier Dates fluorescein 1 mg 1 Strip (FLUORETS) Start: 01-16-2024 End: 01-17-2024 Functional Status Date Assessment Result Facility 11-17-2024 Generalized anxiety disorder 7 item (REYMUNDO-7) [facility] Work Phone: 11-17-2024 Patient Health Questionnaire 2 item (PHQ-2) [Reported] [facility] Work Phone: 10-16-2021 PHQ-9 [id number] In Remission (0-4) [facility] Work Phone: 01-04-2021 PHQ-9 Adult Depressi on Score PHQ-9 Adult Depression Score 2 [facility] Work Phone: Comment on above: Q1: 0, Q2: 0, Q3: 2, Q4: 0, Q5: 0, Q6: 0, Q7: 0, Q8: 0, Q9: 0, 10-04-2019 IO PHQ9 IO PHQ9 1 [facility] Work Phone: 11-10-2014 Are you deaf, or do you have serious difficulty hearing No 11/10/2014 7:06 PM Macrina Rico RN No [facility] Work Phone: 11-10-2014 Are you blind, or do you have serious difficulty seeing, even when wearing glasses No 11/10/2014 7:06 PM Macrina Rico RN No [facility] 11-10-2014 Do you have serious difficulty walking or climbing stairs No 11/10/2014 7:06 PM Macrina Rico RN No [facility] 11-10-2014 Do you have difficul ty dressing or bathing No 11/10/2014 7:06 PM EDMacrina Blanton RN No [facility] 11-10-2014 Because of a physica l, mental, or emotional condition, do you have difficulty doing errands alone such as visiting a physician's office or shopping No 11/10/2014 7:06 PM EDT Macrina Bajwa RN No [facility] Work Phone: NEGATED: Highlighted row Functional performance Functional status health issues are not documented Disease [facility] Work Phone: Mental Status Date Assessment Result Facility 11-10-2014 Because of a physical, mental, or emotional condition, do you have serious difficulty concentrating, remembering, or making decisions No 11/10/2014 7:06 PM EDMacrina Blanton RN No [facility] NEGATED: Highlighted row Cognitive function [Interpretation] Cognitive status health issues are not documented Disease [facility] Work Phone: Clinical Notes 08-22-2021 to 11-28-2024 Michelle Menchaca MD - 11/17/2024 3:30 PM Dre Nolasco MD - 11/04/2024 3:00 PM Morelia Edward OCCA - 11/04/2024 2:58 PM Soha Pink RT(R) - 10/26/2024 8:00 AM EDTPatient Instructions Note Date & Type Note Facility 11-28-2024 Radiology Diagnostic study note [facility] Imaging Services [address] [place] [id number] Hand Min 3 Views MR#: [id number] Acct: [id number] Name: SANDRA SANCHEZ Rep #: [id number] : 1970 F 54 From: Vanessa Jimenez MD PCP: Care Physician,No Primary Status: PRE ER Study:Hand Min 3 Views Date of Exam: Exam# [id number] Ordering Dr: Provider ,Luis Carlos P. PROCEDURE: HAND MIN 3 VIEWS 11/28/2024 REASON FOR EXAM: FINGER PAIN TECHNIQUE: HAND MIN 3 VIEWS COMPARISON: No FINDINGS: Acute, minimally displaced fracture, 4th digit middle phalangeal head, intra-articular extension. No dislocation. RAD/Hand Min 3 Views IMPRESSION: 4th digit injury. [place] Location: [place] [address] CC: ED PHYSICIAN PROVIDER; No Primary Care Physician ~ Steam Room Attendant: Signed [facility] 11-17-2024 History of Present illness Narrative [...] Alessandro Menchaca MD documented in this encounter [facility] Work Phone: 11-04-2024 History of Present [...] problems; no burning, no frequency, no accidents [employer] - one child: age 27 - G1, [...] and eventually stopped when she came to [facility] August 2021. Total of 6 months [...] fluent, comprehension, naming, repetition intact. Short and fdc memory intact. CN: PERRL, EOMI without nystagmus, [...] sherry 13ml multihance. COMPARISON: None. ACCESSION NUMBER(S): [id number] ORDERING CLINICIAN: MICHAEL STANTON TECHNIQUE: The brain [...] or hemorrhage. 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 No vestibular schwannomas or optic pathway gliomas. MRI Spine Report MRI LUMBAR SPINE WO/W IVCON Exam End: 10/26/2024 9:09 AM (Final result) Narrative: * * *Final Report* * * DATE OF EXAM: Oct 26 2024 9:09AM [facility] 0304 - MRI LUMBAR SPINE WO/W [...] and assume there are 5 lumbar-type vertebrae. Steam Room Attendant: [facility] Transcribe Date/Time: Oct 26 2024 9:25A Dictated [...] an international consensus recommendation. Kindra Med 23, 6661-7971 (2020). https://doi.org/10.1038/d37830-81 [email or web address]). Her most recent genetic testing is negative [...] or sooner if indicated Dre Monte MD, [facility] Staff Neuro-Oncologist [facility] I spent a total of 45 minutes on the date of the service which included preparing to see the patient, [id number] patient care, completing clinical documentation, obtaining and/or [...] No Does patient want to see a Coremaker Experimental? No (yes to any of above refer patient to schedulers for dietitian appointment) ) Does patient have any new or increased numbness or tingling of extremities? No Is patient interested in fertility information? No Does patient need any prescription refills? No Does patient have an advanced directive in place? No, Patient refused referral to Social Work or Resource Center documented in this encounter [facility] 11-04-2024 Note HNO ID: [id number] Author: DRE MONTE MD Service: ? Author [...] problems; no burning, no frequency, no accidents [employer] - one child: age 27 - G1, [...] and eventually stopped when she came to [facility] August 2021. Total of 6 months [...] Mitral valve prol (more content not included)... [facility] 11-04-2024 Note HNO ID: [id number] Author: MORELIA MCDONOUGH OCCA Service: ? Author Type: Monument Stonecutter Type: Progress Notes Filed: 11/08/2024 21:44 Note Text: Additional intake questions: Has the patient had fever, nausea, vomiting, diarrhea, constipation, fatigue for > 1 week? No Does the patient have a decreased appetite? No Does patient want to see a Coremaker Experimental? No (yes to any of above refer [...] Resource Center Electronically Signed By: INDY Sue [facility] 10-26-2024 History of Present illness Narrative Radiology [...] PATIENT PRESENTS WITH AN IMPLANTABLE OR ATTACHED ENDODONTICS DENTIST: No ALLERGIES: Reviewed and unchanged CONTRAST ALLERGY: [...] TIME: 8:11 AM documented in this encounter [facility] 10-26-2024 Note HNO ID: [id number] Author: SOHA MORAN RT(R) Service: ? Author [...] PATIENT PRESENTS WITH AN IMPLANTABLE OR ATTACHED ENDODONTICS DENTIST: No ALLERGIES: Reviewed and unchanged CONTRAST ALLERGY: [...] DATE: October 26, 2024 TIME: 8:11 AM [facility] 10-15-2024 History of Present illness Narrative Subjective [...] at [facility]. Printed orders provided Zolpidem yoshi Menchaca MD documented in this encounter [facility] Work Phone: 10-15-2024 Instructions Michelle Menchaca [...] in 4 weeks documented in this encounter [facility] Work Phone: 02-03-2024 Evaluation + Plan [...] lung nodules which are very common in [facility] fatty liver which is common in individuals that are overweight. There is also risk of radiation exposure. Follow up visit will be scheduled to review coronary artery calcium score, if needed. [facility] Work Phone: 02-03-2024 Miscellaneous Notes Associated [...] lung nodules which are very common in [facility] fatty liver which is common in individuals [...] pain regimen as per neurology. Continue with BioFreeze/[place] I recommend considering starting a magesium supplement. [...] try more expensive ($$$) magnesium with best SCIENCE WRITER (brain) penetration, for sleep, focus, mood - magnesium L threonate ,or threonine, or Magtein - 2000 mg, between 150 and 450 mg elemental magnesium in that 2000 mg depending on brand. This can be purchased online ([employer] has one brand for as little as [...] UDS completed 07/17/2023 documented in this encounter [facility] Work Phone: 02-03-2024 Evaluation + Plan note Associated Problem(s): Recurrent cold sores Reports outbreak 2-3 times per year, would like Valtrex to use as needed, rx with refills sent. [facility] Work Phone: 02-03-2024 Evaluation + Plan [...] daily. Recheck DEXA recommended every 2 years. [facility] Work Phone: 02-03-2024 Evaluation + Plan [...] pain regimen as per neurology. Continue with BioFreeze/[place] I recommend considering starting a magesium supplement. [...] try more expensive ($$$) magnesium with best SCIENCE WRITER (brain) penetration, for sleep, focus, mood - magnesium L threonate ,or threonine, or Magtein - 2000 mg, between 150 and 450 mg elemental magnesium in that 2000 mg depending on brand. This can be purchased online ([employer] has one brand for as little as $30/mo). T [facility] Work Phone: 02-03-2024 Evaluation + Plan [...] 02/03/2024 CSA completed 08/19/2023 UDS completed 07/17/2023 [facility] Work Phone: 02-03-2024 History of Present [...] pain regimen as per neurology. Continue with BioFreeze/[place] I recommend considering starting a magesium supplement. [...] try more expensive ($$$) magnesium with best SCIENCE WRITER (brain) penetration, for sleep, focus, mood - magnesium L threonate ,or threonine, or Magtein - 2000 mg, between 150 and 450 mg elemental magnesium in that 2000 mg depending on brand. This can be purchased online ([employer] has one brand for as little as [...] lung nodules which are very common in [facility] fatty liver which is common in individuals [...] Ramandeep Tom DO. documented in this encounter [facility] Work Phone: 02-03-2024 Instructions Ramandeep Tom [...] pain regimen as per neurology. Continue with BioFreeze/[place] I recommend considering starting a magesium supplement. [...] try more expensive ($$$) magnesium with best SCIENCE WRITER (brain) penetration, for sleep, focus, mood - magnesium L threonate ,or threonine, or Magtein - 2000 mg, between 150 and 450 mg elemental magnesium in that 2000 mg depending on brand. This can be purchased online ([employer] has one brand for as little as [...] lung nodules which are very common in [facility] fatty liver which is common in individuals that are overweight. There is also risk of radiation exposure. Follow up visit will be scheduled to review coronary artery calcium score, if needed. Order for PT in [place] for patient's neck Order for coronary artery calcium score - Korina will call you to set this up (booking out approx 4 mo) documented in this encounter [facility] Work Phone: 01-16-2024 Note HNO ID: [id number] Author: ALONDRA PONCE APRN.CHURCH [employer]ICIAN Service: ? Author Type: Nurse Practitioner Type: [...] history is provided by the patient. No wrapper leaf inspector was used. Eye Problem Review of Systems [...] okay with this care plan. Alondra Ponce APRN.[facility] 01-16-2024 History of Present illness Narrative Images [...] history is provided by the patient. No wrapper leaf inspector was used. Eye Problem Review of Systems [...] Alondra Ponce APRN.ALEKSANDR documented in this encounter [facility] 12-12-2023 Instructions Candido Chavez MD - 12/12/2023 1:52 PM EDT Consult to physical therapy, Home exercise program Prescription for R AFO. Can take to a medical supply store to have this filled, like [employer] [facility], or a store in your area ([employer]). Call before you go. This will help with foot drop and walking. Injections- trigger point injections vs. toxin injections Will ask Dr. Monte after safety concerns for injecting L shoulder Follow up - 2-3 weeks at [facility] Thank you! Dr. Chavez documented in this encounter [facility] 12-12-2023 History of Present illness Narrative Department [...] and eventually stopped when she presented to [facility] during 08/2021. 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 trigger point injections at [place] for chronic pain from neurofibromatosis. 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 Author [...] and eventually stopped when she presented to [facility] during 08/2021. 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 [facility] 10-23-2023 History of Present illness Narrative Images [...] problems; no burning, no frequency, no accidents [employer] - one child: age 27 - G1, [...] and eventually stopped when she came to [facility] August 2021. Total of 6 months [...] fluent, comprehension, naming, repetition intact. Short and fdc memory intact. CN: PERRL, EOMI without nystagmus, [...] and assume there are 5 lumbar-type vertebrae. Steam Room Attendant: PSC[facility] Transcribe Date/Time: Oct 08 2022 12:16P [...] an international consensus recommendation. Kindra Med 23, 9617-9312 (2020). https://doi.org/10.1038/z25958-90 [email or web address]). Her most recent genetic testing is negative [...] or sooner if indicated Dre Monte MD, [facility] Staff Neuro-Oncologist [facility] I spent a total of 45 minutes on the date of the service which included preparing to see the patient, [id number] patient care, completing clinical documentation, obtaining and/or reviewing separately obtained history, performing a medically appropriate examination, counseling and educating the patient/family/caregiver, ordering medications, tests, or procedures, communicating with other HCPs (not separately reported), independently interpreting results (not separately reported), and communicating results to the patient/family/caregiver. Patient Care Team: Ramandeep Tom DO as PCP - General (Family Medicine) documented in this encounter [facility] 10-23-2023 Nurse Note Additional intake questions: Has the patient had fever, nausea, vomiting, diarrhea, constipation, fatigue for > 1 week? Yes, constipation (day of last BM yesterday), fatigue, and Provider Notified Does the patient have a decreased appetite? No Does patient want to see a Coremaker Experimental? No (yes to any of above refer patient to schedulers for dietitian appointment) ) Does patient have any new or increased numbness or tingling of extremities? Yes, hands more tingling and numbness. Is patient interested in fertility information? No Does patient need any prescription refills? No Does patient have an advanced directive in place? No, Patient referred to [facility] 10-23-2023 Nurse Note Additional intake questions: Has the patient had fever, nausea, vomiting, diarrhea, constipation, fatigue for > 1 week? Yes, constipation (day of last BM yesterday), fatigue, and Provider Notified Does the patient have a decreased appetite? No Does patient want to see a Coremaker Experimental? No (yes to any of above refer patient to schedulers for dietitian appointment) ) Does patient have any new or increased numbness or tingling of extremities? Yes, hands more tingling and numbness. Is patient interested in fertility information? No Does patient need any prescription refills? No Does patient have an advanced directive in place? No, Patient referred to [facility] documented in this encounter [facility] 10-21-2023 History of Present illness Narrative Radiology [...] PATIENT PRESENTS WITH AN IMPLANTABLE OR ATTACHED ENDODONTICS DENTIST: No ALLERGIES: Reviewed and unchanged CONTRAST ALLERGY: [...] TIME: 9:58 AM documented in this encounter [facility] 08-19-2023 Evaluation + Plan note Associated Problem(s): [...] daily. Recheck DEXA recommended every 2 years. [facility] Work Phone: 08-19-2023 Miscellaneous Notes Associated [...] problems every year. documented in this encounter [facility] Work Phone: 08-19-2023 Evaluation + Plan note Associated Problem(s): Neurofibromatosis (CMS/HCC) Managed/followed by neurology and oncology @ [facility]. Saw PM in past, no longer [...] consider increasing this dose if pain bothersome. [facility] Work Phone: 08-19-2023 Evaluation + Plan [...] completed today (08/19/2023) UDS completed 06/2023 T [facility] Work Phone: 08-19-2023 Evaluation + Plan [...] for those with vision problems every year. [facility] Work Phone: 08-19-2023 History of Present [...] Ramandeep Tom DO. documented in this encounter [facility] Work Phone: 01-14-2023 Evaluation + Plan [...] for infection. Can consider trial of an dffl-fvs-obpvyiq supplement called D-mannose. [facility] Work Phone: 01-14-2023 Miscellaneous Notes Associated [...] for infection. Can consider trial of an jubd-yor-ctrybgg supplement called D-mannose. Associated Problem(s): Insomnia Stable, [...] UDS completed 07/2022. documented in this encounter [facility] Work Phone: 01-14-2023 Evaluation + Plan [...] medication. CSA completed 07/2022. UDS completed 07/2022. [facility] Work Phone: 01-14-2023 History of Present [...] for infection. Can consider trial of an mfii-ava-ypsbyoa supplement called D-mannose. Relevant Medications cephalexin (Keflex) [...] Ramandeep Tom DO. documented in this encounter [facility] Work Phone: 10-15-2022 History of Present [...] problems; no burning, no frequency, no accidents [employer] - one child: age 27 - G1, [...] and eventually stopped when she came to [facility] August 2021. Total of 6 months [...] fluent, comprehension, naming, repetition intact. Short and fdc memory intact. CN: PERRL, EOMI without nystagmus, [...] and assume there are 5 lumbar-type vertebrae. Steam Room Attendant: [facility] Transcribe Date/Time: Oct 08 2022 12:16P Dictated [...] an international consensus recommendation. Kindra Med 23, 4753-7742 (2020). https://doi.org/10.1038/z86582-26 [email or web address]). Her most recent genetic testing is negative [...] which included preparing to see the patient, evuk-eb-ijho patient care, completing clinical documentation, obtaining and/or reviewing separately obtained history, performing a medically appropriate examination, counseling and educating the patient/family/caregiver and ordering medications, tests, or procedures. Dre Monte MD, [facility] Associate Staff [facility] Patient Care Team: Ramandeep Tom DO as PCP - General (Family Medicine) documented in this encounter [facility] 10-15-2022 Nurse Note Additional intake questions: Has the patient had fever, nausea, vomiting, diarrhea, constipation, fatigue for > 1 week? No Does the patient have a decreased appetite? No Does patient want to see a Coremaker Experimental? No (yes to any of above refer patient to schedulers for dietitian appointment) ) Does patient have any new or increased numbness or tingling of extremities? No Is patient interested in fertility information? No Does patient need any prescription refills? No Does patient have an advanced directive in place? No, Patient referred to [facility] documented in this encounter [facility] 10-08-2022 History of Present illness Narrative Radiology [...] TIME: 9:51 AM documented in this encounter [facility] 07-29-2022 Evaluation + Plan note Associated Problem(s): Osteopenia 02/2022 DEXA showed osteopenia femur (2/3 sites), normal spine (1/3) Repeat due 2023 Vitamin D and calcium supplements recommended. Weight bearing activity recommended. [facility] Work Phone: 07-29-2022 Miscellaneous Notes Associated [...] with present regimen. documented in this encounter [facility] Work Phone: 07-29-2022 Evaluation + Plan note Associated Problem(s): Medicare annual wellness visit, subsequent Breast cancer screening due, mammogram ordered 07/29/2022 Colon cancer screening due, colonoscopy ordered 07/28/2022 Cervical cancer screening completed 09/2021. Bone density screening completed 02/2022, due for repeat in 2023. Shingrix vaccines recommended, to be done at pharmacy. Labs recently done with specialist, deferred at this time. [facility] Work Phone: 07-29-2022 Evaluation + Plan note Associated Problem(s): Insomnia Stable, continue Ambien 10 mg daily CSA completed today. UDS ordered today. [facility] Work Phone: 07-29-2022 Evaluation + Plan note Associated Problem(s): Neurofibromatosis (CMS/HCC) Managed/followed by neurology and oncology @ [facility]. Saw PM in past, no longer does, did not find it beneficial. Taking Doxepin 100 mg + Lamictal 150 mg daily. Also prescribed medical marijuana for pain. Stable, will continue with present regimen. [facility] Work Phone: 07-29-2022 History of Present [...] CSA completed today. UDS ordered today. Neurofibromatosis ([facility]/HCC) Overview Managed/followed by neurology and oncology @ [...] Ramandeep Tom DO. documented in this encounter [facility] Work Phone: 07-15-2022 Miscellaneous Notes Called pt and left a message with upcoming appointments. Also, sent Mobstats message, set phone call reminder and mailed out an appointment reminder. documented in this encounter [facility] 07-03-2022 History of Present illness Narrative Radiology Service Progress Note PATIENT NAME: Sadnra Sanchez DATE OF SERVICE: July 03, 2022 [...] 2022 8:17 AM documented in this encounter [facility] 06-24-2022 History of Present illness Narrative Images from the original note were not included. [facility] SECTION OF HEART FAILURE and CARDIAC TRANSPLANT MEDICINE OUTPATIENT VISIT DATE June 25, 2022 OUTPATIENT VISIT TYPE Consultation PRIMARY CARE PHYSICIAN: Ramandeep Tom DO [address] [address] CHIEF COMPLAINT: Cardiac consult HISTORY OF PRESENT ILLNESS: Sandra Sanchez is a 51 y/o female from [place], [place], referred by Dr. 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 Patient denies any past cardiac problems. She previously followed at , where she was receiving a ?chemotherapy agent ?kusleo that required periodic echocardiogram monitoring. Patient states she was followed by a project safety manager with serial echocardiograms that were reportedly all [...] of this patient. documented in this encounter [facility] 05-21-2022 Miscellaneous Notes Thoracic Surgery Consultation - review of records for appointment scheduling Received medical records from the office of Dre Le[address] [facility] [address] Patient is being referred to Unspecified/First Available [...] Bartolome [place] RN documented in this encounter [facility] 05-17-2022 Miscellaneous Notes Time Frame: First available Orders: Consult to cardiothoracic surgery Provider: Any Referring: Lobbous Diagnosis: NF1 and Zenker diverticulum documented in this encounter [facility] 05-17-2022 Miscellaneous Notes Called Sandra, per Dr. [...] Cheryl Ponce, RN documented in this encounter [facility] 05-15-2022 Note HNO ID: [id number] Author: Christina De Anda [facility]-GAUGE AND WEIGH MACHINE OPERATOR Service: ? Author Type: Speech Language Pathologist Type: Progress Notes Filed: 05/15/2022 5:03 PM Note Text: Episode Visit Count: Visit count could not be calculated. Make sure you are using a visit which is associated with an episode. Start of Care Date: 05/15/22 Onset Date: 05/19/21 Patient Identified by Name and Date of : Yes [facility] MODIFIED [...] upright 90 degrees for all PO;Small Bite/Sip GAUGE AND WEIGH MACHINE OPERATOR Recommendations: Diet;Swallowing Precautions - no further Speech [...] Tested: Thin Barium Liquids;Mildly Thick Barium Liquids (Kenney Thick);Pureed with Barium Paste;Minced and Moist with [...] Level 4;Mildly Thick Liquids IDDSI Level 2 (Kenney Thick);Thin Liquids IDDSI Level 0 Education: Education Learning Preferences: Demonstration;Explanation;Perform ance Barriers: None Learning/Educational Needs: Compensatory Strategies;Diet Modification(s);Rehabilitation Techniques and Procedures;Swallowing Skills;MBSs results Education Provided: Yes, see treatment interventions for education provided Education Provided To: Patient Education Mode/Type: Demonstration;Explanation/Discuss ion;Performance;Teach Back;Video Response to Education/Teach Back: States/Identifies;Return Demonstration TREATMENT: Pe (more content not included)... [facility] 05-15-2022 Note HNO ID: [id number] Author: RT Ayah(R) Service: Radiology Author Type: [...] RT Ayah(R) May 15, 2022 2:06 PM [facility] 05-15-2022 History of Present illness Narrative Episode Visit Count: Visit count could not be calculated. Make sure you are using a visit which is associated with an episode. Start of Care Date: 05/15/22 Onset Date: 05/19/21 Patient Identified by Name and Date of : Yes [facility] MODIFIED [...] upright 90 degrees for all PO;Small Bite/Sip GAUGE AND WEIGH MACHINE OPERATOR Recommendations: Diet;Swallowing Precautions - no further Speech [...] Tested: Thin Barium Liquids;Mildly Thick Barium Liquids (Kenney Thick);Pureed with Barium Paste;Minced and Moist with [...] Level 4;Mildly Thick Liquids IDDSI Level 2 (Kenney Thick);Thin Liquids IDDSI Level 0 Education: Education Learning Preferences: Demonstration;Explanation;Perform ance Barriers: None Learning/Educational Needs: Compensatory Strategies;Diet Modification(s);Rehabilitation Techniques and Procedures;Swallowing Skills;MBSs results Education Provided: Yes, see treatment interventions for education provided Education Provided To: Patient Education Mode/Type: Demonstration;Explanation/Discuss ion;Performance;Teach Back;Video Response to Education/Teach Back: States/Identifies;Return Demonstration TREATMENT: Performed Modified Barium Swallowing Study (98023). Evaluation: Modified Barium Swallow Evaluation (53990) Swallow / Dysphagia (63485): Skilled Intervention: Provided education related to a [...] provided this date. Billing: Modified Barium Swallow (45813) and Dysphagia Treatment (95692) Total time: 30 minutes Christina De Anda 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 documented in this encounter [facility] 05-15-2022 History of Present illness Narrative Radiology [...] 2022 2:06 PM documented in this encounter [facility] 05-15-2022 Miscellaneous Notes Called Sandra, since we [...] Cheryl Ponce RN documented in this encounter [facility] 04-05-2022 History of Present illness Narrative POPULATION HEALTH NAVIGATION OUTREACH Action/FYI Enterprise Support: Called pt to schedule an appt in Pain Management. Lvm for pt to call [phone] for scheduling. Pt identified by name and [...] 2022 9:16 AM documented in this encounter [facility] 03-12-2022 Nurse Note Additional intake questions: Has [...] or Resource [facility] documented in this encounter [facility] 03-12-2022 History of Present illness Narrative Images [...] problems; no burning, no frequency, no accidents [employer] - one child: age 27 - G1, [...] and eventually stopped when she came to [facility] August 2021. Total of 6 months [...] fluent, comprehension, naming, repetition intact. Short and parts counterman memory intact. CN: PERRL, EOMI without nystagmus, [...] an international consensus recommendation. Kindra Med 23, 9708-2007 (2020). https://doi.org/10.1038/x52945-60 1-73075-4). Her most recent genetic testing is negative [...] which included preparing to see the patient, chro-oz-qypf patient care, completing clinical documentation, obtaining and/or reviewing separately obtained history, performing a medically appropriate examination, counseling and educating the patient/family/caregiver and ordering medications, tests, or procedures. Dre Monte MD, [facility] Associate Staff [facility] Patient Care Team: Ramandeep Tom DO as PCP - General (Family Medicine) documented in this encounter [facility] 11-14-2021 Miscellaneous Notes I called and spoke with Ms. Sanchez in follow up to her Genetics visit on 11/01/2021. I spoke with the genetic counselor at the [facility] genomics lab, and the excavation laborer reviewed the variant that was identified in SMARCB1 in 2009. Based on current information, that variant would now be classified as likely benign. Therefore, this variant is unlikely to be related to Ms. Sanchez's tumors. I also learned that testing for the NF1 gene can be completed at [facility] at $0 lfn-dl-zganmu. Ms. Sanchez would like to proceed with this, and I will arrange for a saliva kit to be sent to her home. If testing on saliva is normal, we may consider blood testing for a different cell type. documented in this encounter [facility] 11-01-2021 History of Present illness Narrative [facility]ICS CLINIC Patient: Sandra Sanchez Date of : 1970 [facility] #[id number] Consultation requested by: Dr. Stefan Tariq, [facility] Adult Neurology Initial visit: 06/06/2009 (Sandra Dudley at that time) Most recent visit: 06/06/2009 Today's date: 11/02/2021 PRESENTING PROBLEM: Neurofibromatosis, unspecified PRESENT AT VISIT: Patient and mother RECORDS REVIEWED: - [facility] EMR including pertinent clinic notes, lab results, imaging reports, cardiac studies, other evaluations, and scanned documents. Scanned documents include NF2 testing (scan date 09/08/2009), INI1/SMARCB1 testing (scan date 10/02/2009), and her family history obtained at the last visit. - Records from [facility] available in CareEverywhere under [facility]. Available records are not comprehensive but include some imaging reports, echos, and a few clinic visits, but no Neurology visits. - 10/16/21 PCP visit summary - available in CareEverywhere under [facility] NOTE: - Ms. Sanchez met with Edith Sanchez MS, [facility] (Certified Genetic Counselor) independent of the physician encounter. Please see that clinic summary for additional information. - Referring provider, PCP, and other pertinent providers will receive a copy of this clinic summary by Gojimo or by standard mail. The patient will also receive a copy of this clinical summary. - [facility] Yes HISTORY OF PRESENT CONDITION: Sandra Sanchez is a 51 year-old with woman who was seen in Genetics in 2009 for a history of peripheral nerve sheath tumors. She was found to have painful tumors of the right arm, axilla, and chest at age 18. Some tumors were resected at [facility] in 1997 and found to be [...] her 2009 Genetics visit showed a single smzp-ug-lldy (KENRICK) no skin-fold freckling, no lumps/bumps suggestive [...] reports that she switched neurologic care from [facility] to [facility] Neuro-Oncology (Dr. Stanton) and recently back to [facility] after her provider left in May [...] other tumors persists. She saw Dr. Tariq ([facility] General Neurology) in Jun 2021. He obtained copies of recent imaging, referred her back to Genetics, and referred her to Dr. Motne ([facility] Neuro-Oncology) to discuss Koselugo. Both Dr. [...] a few other evaluations are available in [facility], but records are not comprehensive. Neuro-Oncology notes [...] Genetics: - Prior genetics evaluation: 2010 at [facility] - one visit. No Genetics evaluations [...] TESTING: - NF2 blood molecular analysis (2009, [facility]): Normal sequencing and del/dup analysis. Scan date 09/08/09. - INI1/SMARCB1 blood molecular analysis ([facility]): Intronic substitution [id number]. Variant had not been seen before and does not affecting splicing. Deemed a variant of unknown significance. Scan date 10/02/2009. SELECT OTHER EVALUATIONS: [facility] studies noted below available in [facility] Pathology: - Biopsies obtained at [facility], read at [facility] Main. 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 These were no superficial tumors per patient. Final diagnosis: 1. Skin right breast mass excision (00821, recut), (a) - peripheral nerve sheath tumor [...] or other tumor. See full report in [facility] - Spine MRI (12/2019, ): IMPRESSION: 1. [...] VESSELS, BOWEL: All read as normal. See [facility] for full report. PERITONEUM/RETROPERITONEUM: There are numerous, [...] As above. * Right ankle (2013, [facility] [place]): Findings: Subtle nondisplaced horizontal fracture through the [...] difficulties SIGNIFICANT PAST SURGICAL HISTORY: - 1997, [facility]: Biopsies of right breast, arm, and [...] Neurology, and Dr. Monte, Neuro-Oncology, both at [facility]. - Ophthalmology: Dr. Conrad[ at . Wishes to switch to [facility]. SOCIAL HISTORY: - Lives in [place] alone. - Occupation: Not working due to medical issues - Education: Associates degree - Medical marijuana due to pain. FAMILY HISTORY - Patient's ethnicity: [place]er/[place] - No known -Romanian, Mediterranean, /Japanese, [place]/Cajun, or Ashkenazi Hinduism ancestry unless noted above. - Parental consanguinity: No A four generation pedigree was collected by Edith Sanchez MS, [facility] (Certified Genetic Counselor) at the patient's separate genetic counseling encounter in 2009. Pedigree was updated today by Ms. Sanchez and will be scanned into Gojimo. I reviewed the family history and made [...] includes: Children: 28 YO daughter. Healthy. One isva-so-lblp spot but no known skin-fold freckling, lumps/bumps, [...] cancer. * Her maternal grandfather has a eajcf-niorg-nnius said to have NF1. Unclear what this [...] . REVIEW OF SYSTEMS - Also see HPI/Uwqc-ox-lziv Checklist: - Constitutional: Gained 20 lb on [...] and cooperative. - Integument/Breasts: * CALs: Typical ruyz-hn-mtoq of left buttock, 3.5 x 1.5 cm. [...] and hearing grossly intact with normal voice. Crescent tickle on hands and feet. UE tone [...] Exam today is notable for one typical vrqr-qq-lpru and perhaps one other lightly pigmented qtkm-ee-bgze. She did not have skin-fold freckling or [...] High Risk Breast Cancer Clinic here at [facility]. - Given the 2% chance of [...] me to receive records from since not [facility] records were not comprehensive. We will also check on updates on her SMARCB1 variant. Ms. Sanchez indicated she understood the information discussed today and that her questions had been answered. RECOMMENDATIONS: This information was discussed at length with Ms. Sancehz. I recommend the following: - Genetic testing: * NF1 analysis on blood. She is interested if covered by insurance or if jst-uz-coukux cost is low. We will look into [...] I could find records was in 11/2019 ([facility] Appointment line number provided. Ophthalmology - wishes to switch to [facility] provider. Appointment line number provided. - Records release signed for records. Although some records are available in [facility] they are far from comprehensive. - At least annual Neurology and Neuro-Oncology evaluations. Ms. Sanchez has already established care with [facility] providers. - Given large tumor load, PET [...] An right foot X-ray in 2002 at [facility] was read as showing osteopenia, but [...] of Genetics Clinics is available on the [employer] web site, www. acmg.net; select Directories; select [facility]. MEDICAL REFERENCES: - Richard Fortune. Neurofibromatosis 1 in GeneReviews. Last update 2021Sep 06. Currently available at https://pubmed.ncbi.nlm.nih.gov/2 1725076/ - Dede et al. Revised diagnostic criteria for neurofibromatosis type 1 and [place] syndrome: an international consensus recommendation. Kindra Med 2020;23(8):7196-6579. PMID: [id number] Currently available at https://www.ncbi.nlm.nih.gov/pmc/ articles/YLH4313831/ - Terri Turpin et al. Updated diagnostic criteria and nomenclature for neurofibromatosis type 2 and schwannomatosis: An international consensus recommendation. Kindra Med. 2021 8;C9428-6535(91)65312-0. doi: 10.1016/j.gim.202.05.007. Online ahead of print. Currently available at https://www.sciencedirect.com/sci ence/article/pii/X994617009342854 0 - Rick Duenas al. Care of Adults with Neurofibromatosis type 1: A Clinical Practice Resource of the [employer] (ACMG). Kindra Med. 2018 Nov;20(7):671-682. Currently available at: https://www.nature.com/articles/g sd411139.epdf?author_access_token =[email or web address] MATERIAL PROVIDED TO PATIENT: - Diagnostic guidelines [...] of phenotype and possible testing (2 hours qkka-eu-mgms), reviewing separately-obtained family history, ordering consultations, and partial documentation of visit. Additional time was spent after the day of visit on records review and documentation. Fartun Patel M.D. [facility] The [address]/[place] [address] Office: [phone] Office fax: [phone] Clinic fax: [phone] Appointments: [phone] or toll free [phone] Genetic counselor working with patient and/or family: Edith Sanchez MS, [facility] (Certified Genetic Counselor) Office: [phone] CC by [facility]: Dr. Tariq, Adult Neurology Dr. Monte, Neuro-Oncology Otoniel Sanchez MS, [facility] Terri Sorto, [facility] CC by Henrry: Sandra Sanchez CC by US mail: Dr. Ramandeep Tom [address] [facility], [address] [address] Enclosure: NF1 care guidelines referenced above documented in this encounter [facility] 11-01-2021 History of Present illness Narrative Patient [...] unknown significance [id number]. SOCIAL HISTORY: Lives in [place] on her own, with 2 cats Employment: Not currently working due to health issues FAMILY HISTORY: - Patient's ethnicity: [place] Islander/S[place] Arabian - No known -Romanian, Mediterranean, /Japanese, [place]/Cajun, or Ashkenazi Hinduism ancestry unless noted above. - Parental consanguinity: [...] at 74 from cancer. Grandfather has a neuoi-nvvun-fqiqt reported to have NF1. Father: 78 years [...] transition all of her care back to [facility], so Dr. Patel will also refer [...] greater than 50% of which was spent typt-wx-sfgl counseling. This plan is being carried out per Dr. Patel's recommendations. Edith Sanchez MS, [facility] Licensed Genetic Counselor [facility] CC: Dr. Chandni Barrios, as400 administrator CC: Sandra Sanchez [facility] Ramandeep Tom, [address] [phone] documented in this encounter [facility] 09-17-2021 History of Present illness Narrative Radiology [...] spine SIGNATURE: RT Jeff(R) PATIENT NAME: Sandra Schwartzdarlene DATE: September 17, 2021 TIME: 2:07 PM documented in this encounter [facility] 08-22-2021 Nurse Note Additional intake questions: Has the patient had fever, nausea, vomiting, diarrhea, constipation, fatigue for > 1 week? Yes, constipation (day of last BM 08/22/2021) and diarrhea ( 1 times in last 24 hours) Does the patient have a decreased appetite? No Does patient want to see a [employer]? No (yes to any of above refer patient to schedulers for dietitian appointment) ) Does patient have any new or increased numbness or tingling of extremities? Yes, hands, feet, legs Is patient interested in fertility information? No Does patient need any prescription refills? Yes, LIP notified Does patient have an advanced directive in place? No, Patient referred to [facility] documented in this encounter [facility] 08-22-2021 History of Present illness Narrative Images [...] problems; no burning, no frequency, no accidents [employer] [facility] - one child: age 27 - G1, [...] fluent, comprehension, naming, repetition intact. Short and fdc memory intact. CN: PERRL, EOMI without nystagmus, [...] an international consensus recommendation. Kindra Med 23, 6563 8258 (2020). https://doi.org/10.1038/p56701-37 1-34243-7). Her genetic testing was done in the [...] which included preparing to see the patient, iwrt-ey-utrk patient care, completing clinical documentation, obtaining and/or reviewing separately obtained history, performing a medically appropriate examination, counseling and educating the patient/family/caregiver and ordering medications, tests, or procedures. Dre Monte MD 10:03 AM 08/22/2021 [facility] Cc: Garica Diaz MD PCP Stefan Tariq MD [facility] Fartun Patel MD [facility] Robbie Thompson DO, PhD [facility] Diagnosis Benign neoplasm of peripheral nerve sheath- Primary Chronic pain due to neoplasm Neuropathic pain Neuralgia, neuritis, and radiculitis, unspecified [facility] Diagnosis Benign neoplasm of peripheral nerve sheath [facility] Diagnosis Benign neoplasm of peripheral nerve sheath- Primary [facility] Diagnosis Benign neoplasm of peripheral nerve sheath- Primary [facility] Diagnosis Benign neoplasm of peripheral nerve sheath- Primary [facility] 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, soft tissue, and skin Abnormal findings on diagnostic imaging of other specified body structures [facility] Diagnosis Nerve sheath tumor- Primary [...] of esophagus, acquired [facility] Diagnosis Neurofibromatosis, unspecified (HCC)- Primary Neurofibroma Other benign neoplasm of connective and other soft tissue of unspecified site Other heart disorders in diseases classified elsewhere [facility] Diagnosis Other heart disorders in diseases classified elsewhere- Primary Neurofibromatosis, unspecified (HCC) [facility] Diagnosis Shortness of breath- Primary Neurofibromatosis, unspecified (HCC) Zenker's diverticulum Diverticulum of esophagus, acquired [facility] Diagnosis Zenker diverticulum Diverticulum of esophagus, acquired [facility] 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, soft tissue, and skin Benign neoplasm of peripheral nerve sheath Chronic pain due to neoplasm [facility] Diagnosis Onset Date Resolution Status UTI (urinary tract infection) acute [facility] Work Phone: Evaluation note* Diagnosis Insomnia, unspecified type- Primary Medication management Recurrent urinary tract infection Urinary tract infection, site not specified Yeast infection Healthcare maintenance Neurofibromatosis (CMS/HCC) Neurofibromatosis, unspecified documented in this encounter [facility] Work Phone: Evaluation note* Diagnosis 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, soft tissue, and skin Benign neoplasm of peripheral nerve sheath Chronic pain due to neoplasm Neuropathic pain Neuralgia, neuritis, and radiculitis, unspecified [facility] Diagnosis Medicare annual wellness visit, subsequent- Primary Encounter for screening for other disorder Body mass index (BMI) of 23.0 to 23.9 in adult Other screening mammogram Insomnia, unspecified type Screening for colon cancer Special screening for malignant neoplasms, colon Neurofibromatosis (CMS/HCC) Neurofibromatosis, unspecified Osteopenia of multiple sites Postmenopausal estrogen deficiency Elevated LDL cholesterol level documented in this encounter [facility] Work Phone: Evaluation note* Diagnosis Neurofibromatosis (HCC) Neurofibromatosis, unspecified [facility] Diagnosis Neurofibromatosis (HCC) Neurofibromatosis, unspecified [facility] 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, soft tissue, 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 [facility] 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, soft tissue, and skin [facility] Diagnosis Urinary incontinence, unspecified type- Primary 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, soft tissue, and skin Benign neoplasm of peripheral nerve sheath [facility] Diagnosis Spasticity- Primary Abnormal involuntary movements Chronic pain syndrome Neurofibromatosis 2 (HCC) Neurofibromatosis, Type 2 (acoustic neurofibromatosis) [facility] Diagnosis 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 Benign neoplasm of spinal cord Right foot drop Other acquired deformity of ankle and foot Myofascial pain Mylagia and myositis, unspecified Neurofibromatosis (HCC) Neurofibromatosis, unspecified 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 on rotation to right Cramp and spasm Cervical dystonia Spasmodic torticollis [facility] Diagnosis Irritation of eye- Primary Abrasion of left cornea, initial encounter documented in this encounter [facility] note* Diagnosis Medicare annual wellness visit, subsequent- [...] Other screening mammogram documented in this encounter [facility] Work Phone: Evaluation note* Diagnosis Medicare [...] Postmenopausal estrogen deficiency documented in this encounter [facility] Work Phone: Evaluation note* Diagnosis Medicare [...] unspecified cardiovascular conditions documented in this encounter [facility] Work Phone: Evaluation note* Diagnosis Medicare annual wellness visit, subsequent- Primary Screening for colon cancer Special screening for malignant neoplasms, colon Medication management Insomnia, unspecified type Breast cancer screening by mammogram Neurofibromatosis (CMS/HCC) Neurofibromatosis, unspecified Osteopenia of multiple sites Encounter for special screening examination documented in this encounter [facility] Work Phone: Evaluation note* Diagnosis Medicare [...] LDL cholesterol level documented in this encounter [facility] Work Phone: Evaluation note* Diagnosis Medicare [...] (Multi) Neurofibromatosis, unspecified documented in this encounter [facility] Work Phone: Evaluation note* Diagnosis Medicare [...] right upper quadrant documented in this encounter [facility] Work Phone: Evaluation note* Diagnosis 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, soft tissue, and skin Benign neoplasm of peripheral nerve sheath [facility]* Diagnosis 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, soft tissue, and skin Benign neoplasm of peripheral nerve sheath [facility] 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 Work Phone: History of Present illness [...] 2020 * Shingrix-- none found (history of [place] outbreak) * Pneumonia series-- N/A * Mammo-- [...] 2020 * Shingrix-- none found (history of [place] outbreak) * Pneumonia series-- N/A * Mammo-- [...] * 11/2019 mammogram normal, due for repeat. [facility] Work Phone: History of Present illness Narrative* [...] 2020 * Shingrix-- none found (history of [place] outbreak) * Pneumonia series-- N/A * Mammo-- [...] * 11/2019 mammogram normal, due for repeat. [facility] Work Phone: History of Present illness Narrative* Pt of Dr. Tom, [facility] (Front Staff) * Has hx of NF1 [...] neuro did not make a difference. ANDRA-Ramandeep [facility] Work Phone: History of Present illness Narrative* MWV LAST COMPLETED 12/2021 * Health maintenance: * TDAP-- none found * COVID-- none found * Influenza-- Due Fall 2021 * Shingrix-- none found (history of [place] outbreak) * Pneumonia series-- N/A * Mammo-- [...] to know if she should have a [employer] [facility] referral. * She had no period over [...] * UDS is due, last completed 03/2019 [facility] Work Phone: History of Present illness Narrative* MWV LAST COMPLETED 12/2021 * Health maintenance: * TDAP-- none found * COVID-- none found * Influenza-- Due Fall 2021 * Shingrix-- none found (history of [place] outbreak) * Pneumonia series-- N/A * Mammo-- [...] to know if she should have a [employer] [facility] referral. * She had no period over [...] * UDS is due, last completed 03/2019 [facility] Work Phone: Hospital Discharge instructionsAdditional Instructions Please wear your finger splint to stabilize your fracture. Follow-up with orthopedics to ensure there is no need for further intervention. 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 Procedures XR MODIFIED BARIUM SWALLOW W SPEECH THERAPY RADIOLOGIC EXAM SWALLOW FUNCTION CONTRAST STUDY Dre Monte MD [address] [place] [address] Xr Imaging Referral ID Status Reason Start Date Expiration Date Visits Requested Visits Authorized [id number] Pending Review Auto-Generat ed Referral 2 05/15/2023 1 1 * Speech Therapy (Routine) - Authorized Specialty Diagnoses / Procedures Referred By Kvng pat Referred To Contact [facility] 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 Procedures CONSULT TO SPEECH THERAPY OFFICE/OUTPATIENT [facility] 60-74 MINUTES Dre Monte MD [address] [place] [address] [place] [address] Referral ID Status Reason Start Date Expiration Date Visits Requested Visits Authorized [id number] Authorized Auto-Generat ed Referral 2 04/15/2023 99 99 [facility] for referral (narrative)* Diagnostic Procedure Only (Routine) - Closed Specialty Diagnoses / Procedures Referred By Kvng pat Referred To Contact XR IMAGING 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 Procedures XR MODIFIED BARIUM SWALLOW W SPEECH THERAPY RADIOLOGIC EXAM SWALLOW FUNCTION CONTRAST STUDY Dre Monte MD [address] [place] [address] Xr Imaging Referral ID Status Reason Start Date Expiration Date V isits Requested Visits Authorized [id number] Closed Auto-Generate d Referral 04/15/2022 05/15/2023 1 1 [facility] for referral (narrative)* Diagnostic Procedure Only (Routine) - Pending Review Specialty Diagnoses / Procedures Referred By Kvng pat Referred To Contact XR IMAGING Diagnoses Zenker diverticulum Procedures XR ESOPHAGRAM RADIOLOGIC EXAM ESOPHAGUS SINGLE CONTRAST STUDY Jitendra Montgomery MD [address] [place] [address] Xr Imaging Referral ID Status Reason Start Date Expiration Date Visits Requested Visits Authorized [id number] Pending Review Auto-Generat ed Referral 05/23/2022 06/22/2023 1 1 [facility] for referral (narrative)* Outpatient Procedure (Routine) - Authorized Specialty Diagnoses / Procedures [facility] Referred To Contact [facility] Diagnoses Neurofibromatosis, unspecified (HCC) Neurofibroma Other heart disorders in diseases classified elsewhere Procedures ECG COMPLETE ECG ROUTINE ECG W/LEAST 12 LDS W/I&R Rosa Ponce MD [address] [place] [address] [place] [address] Referral ID Status Reason Start Date Expiration Date Visits Requested Visits Authorized [id number] Authorized Auto-Generat ed Referral 05/23/2022 05/23/2023 1 1 [facility] for referral (narrative)* Outpatient Procedure (Routine) - Pending Review Specialty Diagnoses / Procedures [facility] Referred To Contact [facility] Diagnoses Other heart disorders in diseases classified elsewhere Neurofibromatosis, unspecified (HCC) Procedures ECHO ECHO TTHRC R-T 2D W/WOM-MODE COMPL SPEC&COLR D Rosa Ponce MD [address] [place] [address] [place] [address] Referral ID Status Reason Start Date Expiration Date Visits Requested Visits Authorized [id number] Pending Review Auto-Generat ed Referral 05/31/2022 05/23/2023 1 1 [facility] for referral (narrative)* Diagnostic Procedure Only (Routine) - Closed Specialty Diagnoses / Procedures [facility] Referred To Contact XR IMAGING Diagnoses Zenker diverticulum Procedures XR ESOPHAGRAM RADIOLOGIC EXAM ESOPHAGUS SINGLE CONTRAST STUDY Jitendra Montgomery MD [address] [place] [address] Xr Imaging Referral ID Status Reason Start Date Expiration Date V isits Requested Visits Authorized [id number] Closed Auto-Generate d Referral 05/23/2022 06/22/2023 1 1 [facility] for referral (narrative)* Consultation (Routine) - Authorized Specialty Diagnoses / Procedures Referred By Contac t Referred To Contact Primary Care Diagnoses Medication management Insomnia, unspecified type Procedures Follow Up In Advanced Primary Care - PCP Ramandeep Tom DO [address] [facility], [place] [address] Referral ID Status Reason Start Date Expiration Date V isits Requested Visits Authorized [id number] Authorized 07/29/2022 01/25/2023 1 1 * Imaging (Routine) - Authorized Specialty Diagnoses / Procedures Referred By Contac t Referred To Contact Radiology Diagnoses Breast cancer screening by mammogram Procedures BI mammo bilateral screening tomosynthesis Ramandeep Tom DO [address] [facility], [place] [address] Referral ID Status Reason Start Date Expiration Date Visits Requested Visits Authorized [id number] Authorized Perform Procedure 07/29/2022 01/25/2023 1 1 * Endoscopy (Routine) - Authorized Specialty Diagnoses / Procedures Referred By Contac t Referred To Contact Gastroenterology Diagnoses Screening for colon cancer Procedures Colonoscopy Ramandeep Tom DO [address] [place] [address] Referral ID Status Reason Start Date Expiration Date V isits Requested Visits Authorized [id number] Authorized 07/29/2022 01/25/2023 1 1 [facility] Work Phone: Reason for referral (narrative)No reason for referral information [facility] Work Phone: Reason for visit Narrative* Diagnostic Procedure Only (Routine) - Closed Specialty Diagnoses / Procedures Referred By Contac t Referred To Contact XR IMAGING 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 Procedures XR MODIFIED BARIUM SWALLOW W SPEECH THERAPY RADIOLOGIC EXAM SWALLOW FUNCTION CONTRAST STUDY Dre Monte MD [address] [place] [address] Xr Imaging Referral ID Status Reason Start Date Expiration Date V isits Requested Visits Authorized [id number] Closed Auto-Generate d Referral 04/15/2022 05/15/2023 1 1 [facility] N[facility]* Imaging (Routine) - Authorized Specialty Diagnoses / Procedures Referred By Contac t Referred To Contact Radiology Diagnoses Screening for cardiovascular condition Procedures CT cardiac scoring wo IV contrast Ramandeep Tom DO [address] [facility], [address] [place] [address] Phone: tel: fax: Referral ID Status Reason Start Date Expiration Date Visits Requested Visits Authorized [id number] Authorized Perform Procedure 02/03/2024 02/02/2025 1 1 [facility] Work Phone: Reason for visit Narrative* Imaging (Routine) - Authorized Specialty Diagnoses / Procedures Referred By Contac t Referred To Contact Radiology Diagnoses RUQ abdominal pain Procedures US gallbladder Michelle Menchaca MD [address] [facility] [place] [address] Phone: tel: fax: Referral ID Status Reason Start Date Expiration Date Visits Requested Visits Authorized [id number] Authorized Perform Procedure 10/15/2024 10/15/2025 1 1 [facility] Work Phone: Reason for visit Narrative* MRI/CT (Routine) - Closed Specialty Diagnoses / Procedures Referred By Contac t Referred To Contact MR IMAGING 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 Procedures MRI LUMBAR SPINE WO/W IVCON MRI SPINAL CANAL LUMBAR W/O & W/CONTR Dre Gomez MD [address] [place] [address] Phone: tel: fax: MR IMAGING [place] [address] Referral ID Status Reason Start Date Expiration Date V isits Requested Visits Authorized [id number] Closed Auto-Generate d Referral 10/27/2023 11/25/2024 1 1 [facility] for visit Narrative* MRI/CT (Routine) - Closed Specialty Diagnoses / Procedures Referred By Kvng t Referred To Contact MR IMAGING 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 Procedures MRI THORACIC SPINE WO/W IVCON MRI SPINAL CANAL THORACIC W/O & W/CONTR Dre Gomez MD [address] [place] [address] Phone: tel: fax: [facility] [place] [address] Referral ID Status Reason Start Date Expiration Date V isits Requested Visits Authorized [id number] Closed Auto-Generate d Referral 10/27/2023 11/25/2024 1 1 [facility] for visit Narrative* MRI/CT (Routine) - Closed Specialty Diagnoses / Procedures Referred By Kvng t Referred To Contact MR IMAGING 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 Procedures MRI CERVICAL SPINE WO/W IVCON MRI SPINAL CANAL CERVICAL W/O & W/CONTR Dre Gomez MD [address] [place] [address] Phone: tel: fax: [facility] [place] [address] Referral ID Status Reason Start Date Expiration Date V isits Requested Visits Authorized [id number] Closed Auto-Generate d Referral 10/27/2023 11/25/2024 1 1 [facility] Summary Purpose Family History No Family History [...] No August 01, 2021 8:47pm Power of Medication Assistant No August 01 8:47pm Latest Code Status on File Code Status Date Activated Date Inactivated Comments None 07/13/2004 2:17 PM 07/13/2004 3:17 PM Date Activated Date Inactivated Comments 07/13/2004 2:17 PM 07/13/2004 3:17 PM Date Activated Date Inactivated Comments 07/13/2004 2:17 PM 07/13/2004 3:17 PM Advance Directive Response Recorded Date/ Time Do you have a Healthcare Power of Medication Assistant? No November 28, 2024 10:40pm Chief Complaint [...] CERVICAL W/O & W/CONTR Dre Gomez MD [address] [place], [place] [id number] Mr Imaging Referral ID Status Reason Start Date Expiration Date V isits Requested Visits Authorized [id number] Closed Auto-Generate d Referral 08/22/2021 09/21/2022 1 1 Specialty Diagnoses / Procedures Referred By Kvng t Referred To Contact MR IMAGING Diagnoses Benign neoplasm of peripheral nerve sheath Procedures MRI SOFT TISSUE NECK WO/W IVCON MRI ORBIT FACE & NECK W/O & W/CONTRAST Dre Gomez MD [address] [place] [id number] Mr Imaging Referral ID Status Reason Start Date Expiration Date V isits Requested Visits Authorized [id number] Closed Auto-Generate d Referral 08/22/2021 09/21/2022 1 1 Specialty Diagnoses / Procedures Referred By Contac t Referred To Contact MR IMAGING 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 pain Procedures MRI PELVIS WO/W IVCON MRI PELVIS W/O & W/CONTRAST MATERIAL Dre Monte MD [address] [place] [address] Mr Imaging [place] [address] Referral ID Status Reason Start Date Expiration Date V isits Requested Visits Authorized [id number] Closed Auto-Generate d Referral 03/13/2022 04/12/2023 1 1 Specialty Diagnoses / Procedures Referred By Contac t Referred To Contact MR IMAGING 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 pain Procedures MRI THORACIC SPINE WO/W IVCON MRI SPINAL CANAL THORACIC W/O & W/CONTR MATRL Dre Monte MD [address] [place] [address] Mr Imaging [place] [address] Referral ID Status Reason Start Date Expiration Date V isits Requested Visits Authorized [id number] Closed Auto-Generate d Referral 03/13/2022 04/12/2023 1 1 Specialty Diagnoses / Procedures Referred By Contac t Referred To Contact MR IMAGING 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 pain Procedures MRI LUMBAR SPINE WO/W IVCON MRI SPINAL CANAL LUMBAR W/O & W/CONTR MATRL Dre Monte MD [address] [place] [address] Mr Imaging [place] [address] Referral ID Status Reason Start Date Expiration Date V isits Requested Visits Authorized [id number] Closed Auto-Generate d Referral 03/13/2022 04/12/2023 1 1 Specialty Diagnoses / Procedures Referred By Contac t Referred To Contact MR IMAGING 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 pain Procedures MRI CERVICAL SPINE WO/W IVCON MRI SPINAL CANAL CERVICAL W/O & W/CONTR MATRL Dre Monte MD [address] [place] [address] [place] [id number] Referral ID Status Reason Start Date Expiration Date V isits Requested Visits Authorized [id number] Closed Auto-Generate d Referral 03/13/2022 04/12/2023 1 1 Specialty Diagnoses / Procedures Referred By Contac t Referred To Contact Radiology Diagnoses Postmenopausal estrogen deficiency Procedures XR DEXA bone density Ramandeep Tom, DO [address] [facility], [address] [address] Referral ID Status Reason Start Date Expiration Date Visits Requested Visits Authorized [id number] Pending Review Perform Procedure 08/19/2023 08/18/2024 1 1 Specialty Diagnoses / Procedures Referred By Contac t Referred To Contact Gastroenterology Diagnoses Screening for colon cancer Procedures Colonoscopy Screening; High Risk Patient; dad with hx of colon cancer UT COLONOSCOPY FLX DX W/COLLJ SPEC WHEN PFRMD UT COLON CA SCRN NOT HI RSK IND UT COLORECTAL SCRN; HI RISK IND UT COLONOSCOPY W/BIOPSY SINGLE/MULTIPLE UT COLSC FLX W/RMVL OF TUMOR POLYP LESION SNARE TQ UT COLSC FLX W/REMOVAL LESION BY HOT BX FORCEPS Ramandeep Tom, DO [address] [facility], [address] [address] Referral ID Status Reason Start Date Expiration Date V isits Requested Visits Authorized [id number] Pending Review 08/19/2023 08/18/2024 1 1 Specialty Diagnoses / Procedures Referred By Contac t Referred To Contact Radiology Diagnoses Other screening mammogram Procedures BI mammo bilateral screening tomosynthesis Ramandeep Tom, DO [address] [facility], [place] [address] [place] [address] Referral ID Status Reason Start Date Expiration Date Visits Requested Visits Authorized [id number] Authorized Perform Procedure 08/19/2023 08/18/2024 1 1 Specialty Diagnoses / Procedures Referred By Contac t Referred To Contact MR IMAGING Diagnoses Neurofibromatosis (HCC) Procedures MRI THORACIC SPINE WO/W IVCON MRI SPINAL CANAL THORACIC W/O & W/CONTR Dre Gomez MD [address] [place] [phone] Mr Imaging [place] [address] Referral ID Status Reason Start Date Expiration Date V isits Requested Visits Authorized [id number] Closed Auto-Generate d Referral 10/16/2022 11/15/2023 1 1 Specialty Diagnoses / Procedures Referred By Contac t Referred To Contact MR IMAGING Diagnoses Neurofibromatosis (HCC) Procedures MRI LUMBAR SPINE WO/W IVCON MRI SPINAL CANAL LUMBAR W/O & W/CONTR MATRL Dre Monte MD [address] [place] [address] Mr Imaging [place] [address] Referral ID Status Reason Start Date Expiration Date V isits Requested Visits Authorized [id number] Closed Auto-Generate d Referral 10/16/2022 11/15/2023 1 1 Specialty Diagnoses / Procedures Referred By Contac t Referred To Contact MR IMAGING Diagnoses Neurofibromatosis (HCC) Procedures MRI PELVIS WO/W IVCON MRI PELVIS W/O & W/CONTRAST MATERIAL Dre Monte MD [address] [place] [address] Mr Imaging [place] [address] Referral ID Status Reason Start Date Expiration Date V isits Requested Visits Authorized [id number] Closed Auto-Generate d Referral 10/16/2022 11/15/2023 1 1 Specialty Diagnoses / Procedures Referred By Contac t Referred To Contact MR IMAGING Diagnoses Neurofibromatosis (HCC) Procedures MRI CERVICAL SPINE WO/W IVCON MRI SPINAL CANAL CERVICAL W/O & W/CONTR Dre Gomez MD [address] [place] [address] Mr Imaging [place] [address] Referral ID Status Reason Start Date Expiration Date V isits Requested Visits Authorized [id number] Closed Auto-Generate d Referral 10/16/2022 11/15/2023 1 1 Specialty Diagnoses / Procedures Referred By Contac t Referred To Contact MR IMAGING Diagnoses Nerve sheath tumor Procedures MRI BRAIN WO/W IVCON MRI BRAIN BRAIN STEM W/O W/CONTRAST MATERIAL Dre Monte MD [address] [place] [phone] Mr Imaging [facility] Referral ID Status Reason Start Date Expiration Date Visits Requested Visits Authorized [id number] Pending Review Auto-Generat ed Referral 10/24/2023 11/22/2024 1 1 Specialty Diagnoses / Procedures Referred By Contac t Referred To Contact Diagnoses Urinary incontinence, unspecified type Nerve sheath tumor Procedures CONSULT TO URO GYNECOLOGY OFFICE/OUTPATIENT NEW HIGH MDM 60 MINUTES Dre Monte MD [address] [place] [phone] Referral ID Status Reason Start Date Expiration Date Visits Requested Visits Authorized [id number] Authorized PCP Requested Referral Auto-Generate d Referral 10/27/2023 10/26/2024 1 1 Specialty Diagnoses / Procedures Referred By Contac t Referred To Contact MR IMAGING 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 Procedures MRI LUMBAR SPINE WO/W IVCON MRI SPINAL CANAL LUMBAR W/O & W/CONTR MATRL Dre Monte MD [address] [place] [phone] Mr Imaging [facility] Referral ID Status Reason Start Date Expiration Date Visits Requested Visits Authorized [id number] Pending Review Auto-Generat ed Referral 10/27/2023 11/25/2024 1 1 Specialty Diagnoses / Procedures Referred By Contac t Referred To Contact MR IMAGING 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 Procedures MRI THORACIC SPINE WO/W IVCON MRI SPINAL CANAL THORACIC W/O & W/CONTR HASEEBL Dre Monte MD [address] [place] [phone] Mr Imaging [facility] Referral ID Status Reason Start Date Expiration Date Visits Requested Visits Authorized [id number] Pending Review Auto-Generat ed Referral 10/27/2023 11/25/2024 1 1 Specialty Diagnoses / Procedures Referred By Contac t Referred To Contact MR IMAGING 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 Procedures MRI CERVICAL SPINE WO/W IVCON MRI SPINAL CANAL CERVICAL W/O & W/CONTR Dre Gomez MD [address] [place] [address] Mr Imaging [place] [address] Referral ID Status Reason Start Date Expiration Date Visits Requested Visits Authorized [id number] Pending Review Auto-Generat ed Referral 10/27/2023 11/25/2024 1 1 Specialty Diagnoses / Procedures Referred By Contac t Referred To Contact [facility] Diagnoses Spasticity Chronic pain syndrome Neurofibromatosis 2 (HCC) Procedures CONSULT TO PHYSICAL MEDICINE AND REHABILITATION OFFICE/OUTPATIENT [facility] 60 MINUTES Estelle Reno MD [address] [place] [address]/[place] [address] [facility] [place] [address] Referral ID Status Reason Start Date Expiration Date Visits Requested Visits Authorized [id number] Authorized PCP Requested Referral Auto-Generate d Referral 11/26/2023 11/11/2024 1 1 Specialty Diagnoses / Procedures Referred By Contac t Referred To Contact [facility] Diagnoses Myofascial pain Neurofibromatosis (HCC) 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 on rotation to right Procedures CONSULT TO PHYSICAL THERAPY PHYSICAL THERAPY EVALUATION [facility] 45 MINS Candido Chavez MD [address] [place] [address] [facility] [place] [address] Referral ID Status Reason Start Date Expiration Date Visits Requested Visits Authorized [id number] Authorized PCP Requested Referral Auto-Generate d Referral 12/12/2023 12/11/[phone] Referral ID Status Reason Start Date Expiration Date Visits Requested Visits Authorized [id number] Authorized Perform Procedure 08/19/2023 08/18/2024 1 1 Specialty Diagnoses / Procedures Referred By Contac t Referred To Contact Radiology Diagnoses Screening for cardiovascular condition Procedures CT cardiac scoring wo IV contrast Ramandeep Tom, [address] [facility], [address] [address] Referral ID Status Reason Start Date Expiration Date Visits Requested Visits Authorized [id number] Authorized Perform Procedure 02/03/2024 02/02/2025 1 1 Specialty Diagnoses / Procedures Referred By Kvng pat Referred To Contact Physical Therapy Diagnoses Neurofibromatosis (Multi) Neck stiffness Cervicogenic headache Other complicated headache syndrome Jordan Melara Ramandeep DO [place] [address] [facility], [place] [address] [place] [address] Referral ID Status Reason Start Date Expiration Date Visits Requested Visits Authorized [id number] Pending Review Consult and Treat 02/03/2024 02/02/2025 1 1 Chief Complaint and Reason for Visit Chief Complaint CONCERN FOR UTI/BLAD DAHIANA Reason for Visit UTI (urinary tract i nfection) Chief Complaint Admit Date FELL OFF A HORSE November 28, 2024 9:12 pm Additional Source Comments INFORMATION SOURCE (unrecogn ized section and content) DATE CREATED AUTHOR 11/11/2017 [facility] DATE CREATED AUTHOR AUTHOR'S ORGANIZ ATION 09/20/2020 [facility] DATE CREATED AUTHOR AUTHOR'S ORGANIZ ATION 10/17/2021 [facility] DATE CREATED AUTHOR AUTHOR'S ORGANIZ ATION 05/16/2022 [facility] DATE CREATED AUTHOR AUTHOR'S ORGANIZ ATION 01/05/2023 [facility] DATE CREATED AUTHOR AUTHOR'S ORGANIZ ATION 03/22/2024 [facility] DATE CREATED AUTHOR AUTHOR'S ORGANIZ ATION 10/25/2024 [facility] DATE CREATED AUTHOR AUTHOR'S ORGANIZ ATION 11/10/2024 [facility] DATE CREATED AUTHOR AUTHOR'S ORGANIZ ATION 11/20/2024 [facility] DATE CREATED AUTHOR AUTHOR'S ORGANIZ ATION 12/18/2024 [facility] Source Comments (unrecognize d section and content) In the event this informatio n is protected by the Federal Confidentiality of Alcohol and Drug Abuse Patient Records regulations: The Federal rules restrict any use of the information to criminally investigate or prosecute any alcohol or drug abuse patient.[facility] RehabilitationIn the event this information is protected by the Federal Confidentiality of Alcohol and Drug Abuse Patient Records regulations: The Federal rules restrict any use of the information to criminally investigate or prosecute any alcohol or drug abuse patient.[facility] RehabilitationIn the event this information is protected by the Federal Confidentiality of Alcohol and Drug Abuse Patient Records regulations: The Federal rules restrict any use of the information to criminally investigate or prosecute any alcohol or drug abuse patient.[facility] RehabilitationIn the event this information is protected by the Federal Confidentiality of Alcohol and Drug Abuse Patient Records regulations: The Federal rules restrict any use of the information to criminally investigate or prosecute any alcohol or drug abuse patient.[facility] RehabilitationIn the event this information is protected by the Federal Confidentiality of Alcohol and Drug Abuse Patient Records regulations: The Federal rules restrict any use of the information to criminally investigate or prosecute any alcohol or drug abuse patient.[facility] RehabilitationIn the event this information is protected by the Federal Confidentiality of Alcohol and Drug Abuse Patient Records regulations: The Federal rules restrict any use of the information to criminally investigate or prosecute any alcohol or drug abuse patient.[facility] RehabilitationIn the event this information is protected by the Federal Confidentiality of Alcohol and Drug Abuse Patient Records regulations: The Federal rules restrict any use of the information to criminally investigate or prosecute any alcohol or drug abuse patient.[facility] RehabilitationIn the event this information is protected by the Federal Confidentiality of Alcohol and Drug Abuse Patient Records regulations: The Federal rules restrict any use of the information to criminally investigate or prosecute any alcohol or drug abuse patient.[facility] RehabilitationIn the event this information is protected by the Federal Confidentiality of Alcohol and Drug Abuse Patient Records regulations: The Federal rules restrict any use of the information to criminally investigate or prosecute any alcohol or drug abuse patient.[facility] RehabilitationIn the event this information is protected by the Federal Confidentiality of Alcohol and Drug Abuse Patient Records regulations: The Federal rules restrict any use of the information to criminally investigate or prosecute any alcohol or drug abuse patient.[facility] RehabilitationIn the event this information is protected by the Federal Confidentiality of Alcohol and Drug Abuse Patient Records regulations: The Federal rules restrict any use of the information to criminally investigate or prosecute any alcohol or drug abuse patient.[facility] RehabilitationIn the event this information is protected by the Federal Confidentiality of Alcohol and Drug Abuse Patient Records regulations: The Federal rules restrict any use of the information to criminally investigate or prosecute any alcohol or drug abuse patient.[facility] RehabilitationIn the event this information is protected by the Federal Confidentiality of Alcohol and Drug Abuse Patient Records regulations: The Federal rules restrict any use of the information to criminally investigate or prosecute any alcohol or drug abuse patient.[facility] RehabilitationIn the event this information is protected by the Federal Confidentiality of Alcohol and Drug Abuse Patient Records regulations: The Federal rules restrict any use of the information to criminally investigate or prosecute any alcohol or drug abuse patient.[facility] RehabilitationIn the event this information is protected by the Federal Confidentiality of Alcohol and Drug Abuse Patient Records regulations: The Federal rules restrict any use of the information to criminally investigate or prosecute any alcohol or drug abuse patient.[facility] RehabilitationIn the event this information is protected by the Federal Confidentiality of Alcohol and Drug Abuse Patient Records regulations: The Federal rules restrict any use of the information to criminally investigate or prosecute any alcohol or drug abuse patient.[facility] RehabilitationIn the event this information is protected by the Federal Confidentiality of Alcohol and Drug Abuse Patient Records regulations: The Federal rules restrict any use of the information to criminally investigate or prosecute any alcohol or drug abuse patient.[facility] RehabilitationIn the event this information is protected by the Federal Confidentiality of Alcohol and Drug Abuse Patient Records regulations: The Federal rules restrict any use of the information to criminally investigate or prosecute any alcohol or drug abuse patient.[facility] RehabilitationIn the event this information is protected by the Federal Confidentiality of Alcohol and Drug Abuse Patient Records regulations: The Federal rules restrict any use of the information to criminally investigate or prosecute any alcohol or drug abuse patient.[facility] RehabilitationIn the event this information is protected by the Federal Confidentiality of Alcohol and Drug Abuse Patient Records regulations: The Federal rules restrict any use of the information to criminally investigate or prosecute any alcohol or drug abuse patient.[facility] RehabilitationIn the event this information is protected by the Federal Confidentiality of Alcohol and Drug Abuse Patient Records regulations: The Federal rules restrict any use of the information to criminally investigate or prosecute any alcohol or drug abuse patient.[facility] RehabilitationIn the event this information is protected by the Federal Confidentiality of Alcohol and Drug Abuse Patient Records regulations: The Federal rules restrict any use of the information to criminally investigate or prosecute any alcohol or drug abuse patient.[facility] RehabilitationIn the event this information is protected by the Federal Confidentiality of Alcohol and Drug Abuse Patient Records regulations: The Federal rules restrict any use of the information to criminally investigate or prosecute any alcohol or drug abuse patient.[facility] RehabilitationIn the event this information is protected by the Federal Confidentiality of Alcohol and Drug Abuse Patient Records regulations: The Federal rules restrict any use of the information to criminally investigate or prosecute any alcohol or drug abuse patient.[facility] RehabilitationIn the event this information is protected by the Federal Confidentiality of Alcohol and Drug Abuse Patient Records regulations: The Federal rules restrict any use of the information to criminally investigate or prosecute any alcohol or drug abuse patient.[facility] RehabilitationIn the event this information is protected by the Federal Confidentiality of Alcohol and Drug Abuse Patient Records regulations: The Federal rules restrict any use of the information to criminally investigate or prosecute any alcohol or drug abuse patient.[facility] RehabilitationIn the event this information is protected by the Federal Confidentiality of Alcohol and Drug Abuse Patient Records regulations: The Federal rules restrict any use of the information to criminally investigate or prosecute any alcohol or drug abuse patient.[facility] RehabilitationIn the event this information is protected by the Federal Confidentiality of Alcohol and Drug Abuse Patient Records regulations: The Federal rules restrict any use of the information to criminally investigate or prosecute any alcohol or drug abuse patient.[facility] RehabilitationIn the event this information is protected by the Federal Confidentiality of Alcohol and Drug Abuse Patient Records regulations: The Federal rules restrict any use of the information to criminally investigate or prosecute any alcohol or drug abuse patient.[facility] RehabilitationIn the event this information is protected by the Federal Confidentiality of Alcohol and Drug Abuse Patient Records regulations: The Federal rules restrict any use of the information to criminally investigate or prosecute any alcohol or drug abuse patient.[facility] RehabilitationIn the event this information is protected by the Federal Confidentiality of Alcohol and Drug Abuse Patient Records regulations: The Federal rules restrict any use of the information to criminally investigate or prosecute any alcohol or drug abuse patient.[facility] RehabilitationIn the event this information is protected by the Federal Confidentiality of Alcohol and Drug Abuse Patient Records regulations: The Federal rules restrict any use of the information to criminally investigate or prosecute any alcohol or drug abuse patient.[facility] RehabilitationIn the event this information is protected by the Federal Confidentiality of Alcohol and Drug Abuse Patient Records regulations: The Federal rules restrict any use of the information to criminally investigate or prosecute any alcohol or drug abuse patient.[facility] RehabilitationIn the event this information is protected by the Federal Confidentiality of Alcohol and Drug Abuse Patient Records regulations: The Federal rules restrict any use of the information to criminally investigate or prosecute any alcohol or drug abuse patient.[facility] RehabilitationIn the event this information is protected by the Federal Confidentiality of Alcohol and Drug Abuse Patient Records regulations: The Federal rules restrict any use of the information to criminally investigate or prosecute any alcohol or drug abuse patient.[facility] RehabilitationIn the event this information is protected by the Federal Confidentiality of Alcohol and Drug Abuse Patient Records regulations: The Federal rules restrict any use of the information to criminally investigate or prosecute any alcohol or drug abuse patient.[facility] RehabilitationIn the event this information is protected by the Federal Confidentiality of Alcohol and Drug Abuse Patient Records regulations: The Federal rules restrict any use of the information to criminally investigate or prosecute any alcohol or drug abuse patient.[facility] RehabilitationIn the event this information is protected by the Federal Confidentiality of Alcohol and Drug Abuse Patient Records regulations: The Federal rules restrict any use of the information to criminally investigate or prosecute any alcohol or drug abuse patient.[place] [facility] RehabilitationIn the event this information is protected by the Federal Confidentiality of Alcohol and Drug Abuse Patient Records regulations: The Federal rules restrict any use of the information to criminally investigate or prosecute any alcohol or drug abuse patient.[facility] RehabilitationIn the event this information is protected by the Federal Confidentiality of Alcohol and Drug Abuse Patient Records regulations: The Federal rules restrict any use of the information to criminally investigate or prosecute any alcohol or drug abuse patient.[facility] RehabilitationIn the event this information is protected by the Federal Confidentiality of Alcohol and Drug Abuse Patient Records regulations: The Federal rules restrict any use of the information to criminally investigate or prosecute any alcohol or drug abuse patient.[facility] RehabilitationIn the event this information is protected by the Federal Confidentiality of Alcohol and Drug Abuse Patient Records regulations: The Federal rules restrict any use of the information to criminally investigate or prosecute any alcohol or drug abuse patient.[facility] RehabilitationIn the event this information is protected by the Federal Confidentiality of Alcohol and Drug Abuse Patient Records regulations: The Federal rules restrict any use of the information to criminally investigate or prosecute any alcohol or drug abuse patient.[facility] Reason for Visit (unrecogniz ed section and content) Reason Comments Consult Specialty Diagnoses / Procedures Referred By Kvng pat Referred To Contact Cardiothoracic Surgery Diagnoses Neurofibromatosis, unspecified (HCC) Zenker's diverticulum Procedures CONSULT TO CARDIOLOGY OFFICE/OUTPATIENT [facility] 60-74 MINUTES Dre Monte MD [address] [place] [address] Referral ID Status Reason Start Date Expiration Date V isits Requested Visits Authorized [id number] Closed PCP Requested Referral 05/23/2022 05/23/2023 1 1 Specialty Diagnoses / Procedures Referred By Kvng pat Referred To Contact MR IMAGING Diagnoses Benign neoplasm of peripheral nerve sheath Procedures MRI SOFT TISSUE NECK WO/W IVCON MRI ORBIT FACE & NECK W/O & W/CONTRAST MATRL Dre Monte MD [facility] [place] [address] Mr Imaging Referral ID Status Reason Start Date Expiration Date V isits Requested Visits Authorized [id number] Closed Auto-Generate d Referral 08/22/2021 09/21/2022 1 1 Reason Comments Refill Request Specialty Diagnoses / Procedures Referred By Kvng pat Referred To Contact Diagnoses Neurofibromatosis (HCC) Procedures CONSULT TO MEDICAL GENETICS - GENERAL OFFICE/OUTPATIENT [facility] 60-74 MINUTES MEDICAL GENETICS COUNSELING EACH 30 MINUTES Stefan Tariq MD [address] [place] [address] [place] [address] Referral ID Status Reason Start Date Expiration Date Visits Requested Visits Authorized [id number] Pending Review PCP Requested Referral Auto-Generate d [...] SWALLOW FUNCTION CONTRAST STUDY Dre Monte MD [employer] [address] [place] [address] Xr Imaging Referral ID Status Reason Start Date Expiration Date V isits Requested Visits Authorized [id number] Closed Auto-Generate d Referral 04/15/2022 05/15/2023 1 1 Reason Comments Results Reason Comments Consult Symptomatic Zenker d iverticulum Reason Comments SOFYA first available Reason Comments Radio GI Main HB6 Specialty Diagnoses / Procedures Referred By Contac t Referred To Contact XR IMAGING Diagnoses Zenker diverticulum Procedures XR ESOPHAGRAM RADIOLOGIC EXAM ESOPHAGUS SINGLE CONTRAST STUDY Jitendra [place] MD [address] [place] [address] Xr Imaging Referral ID Status Reason Start Date Expiration Date V isits Requested Visits Authorized [id number] Closed Auto-Generate d Referral 05/23/2022 06/22/2023 1 1 Reason Comments Appointment Reason Comments Follow-up Pt presents for [address] [facility] follow up- pt states no concerns at this time. 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 t Pt presents for annual MWV- ABN [...] W/CONTR Dre Gomez MD [address] [place] [address] Mr Imaging [place] [address] Referral ID Status Reason Start Date Expiration Date V isits Requested Visits Authorized [id number] Closed Auto-Generate d Referral 10/16/2022 11/15/2023 1 1 Specialty Diagnoses / Procedures Referred By Contac t Referred To Contact MR IMAGING Diagnoses Neurofibromatosis (HCC) Procedures MRI LUMBAR SPINE WO/W IVCON MRI SPINAL CANAL LUMBAR W/O & W/CONTR Dre Gomez MD [address] [place] [address] Mr Imaging [place] [address] Referral ID Status Reason Start Date Expiration Date V isits Requested Visits Authorized [id number] Closed Auto-Generate d Referral 10/16/2022 11/15/2023 1 1 Specialty Diagnoses / Procedures Referred By Contac t Referred To Contact MR IMAGING Diagnoses Neurofibromatosis (HCC) Procedures MRI PELVIS WO/W IVCON MRI PELVIS W/O & W/CONTRAST MATERIAL Dre Monte MD [address] [place] [address] Mr Imaging [place] [address] Referral ID Status Reason Start Date Expiration Date V isits Requested Visits Authorized [id number] Closed Auto-Generate d Referral 10/16/2022 11/15/2023 1 1 Specialty Diagnoses / Procedures Referred By Contac t Referred To Contact MR IMAGING Diagnoses Neurofibromatosis (HCC) Procedures MRI CERVICAL SPINE WO/W IVCON MRI SPINAL CANAL CERVICAL W/O & W/CONTR MATRL Dre Monte MD [address] [place] [address] Mr Imaging [place] [address] Referral ID Status Reason Start Date Expiration Date V isits Requested Visits Authorized [id number] Closed Auto-Generate d Referral 10/16/2022 11/15/2023 1 1 Reason Comments Consult Reason Comments Eye Problem Left eye, irritation and swelling in corner near nose, burning and redness x 4 days goup in corner in morning Specialty Diagnoses / Procedures Referred By Contac t Referred To Contact Radiology Diagnoses Other screening mammogram Procedures BI mammo bilateral screening tomosynthesis Ramandeep Tom, DO [address] [facility], [place] [address] [place] [address] Referral ID Status Reason Start Date Expiration Date Visits Requested Visits Authorized [id number] Authorized Perform Procedure 08/19/2023 08/18/2024 1 1 Specialty Diagnoses / Procedures Referred By Contac t Referred To Contact Radiology Diagnoses Postmenopausal estrogen deficiency Procedures XR DEXA bone density Ramandeep Tom, [address] [facility], [place] [address] [place] [address] Referral ID Status Reason Start Date Expiration Date Visits Requested Visits Authorized [id number] Authorized Perform Procedure 08/19/2023 08/18/2024 1 1 Reason Comments Medicare Annual Wellness Visit Subsequen t No concerns Reason Comments Follow-up Pt presents for 6 mo nth follow up- pt states no new concerns at this time. Flu Vaccine Pt declines flu vacc ine at this time. Reason Comments Follow-up Reason Comments Follow-up Care Teams (unrecognized sec tion and content) [employer] Relationship Specialty Start Date End Date Garcia Rose PCP - General 06/12/09 [employer] Relationship Specialty Start Date End Date Garcia Rose PCP - General 06/12/09 [employer] Relationship Specialty Start Date End Date Garcia Rose PCP - General 06/12/09 [employer]rier Relationship Specialty Start Date End Date Ramandeep Tom DO [address] [facility] [address] [place], [place] [id number] PCP - General Family Practice 11/01/21 [employer] Relationship Specialty Start Date End Date Ramandeep Tom, DO [address] [facility] [place] [address] [place] [address] PCP - General Family Practice 11/01/21 Pot[employer] Pancake Frier Relationship Specialty Start Date End Date Ramandeep Tom, DO [address] [facility] [address] [place] [address] PCP - General Family Practice 11/01/21 Potato Pancake Frier Relationship Specialty Start Date End Date Ramandeep Tom, DO [address] [facility] [address] [place] [address] PCP - General Family Practice 11/01/21 Potato Pancake Frier Relationship Specialty Start Date End Date Ramandeep Tom, DO [address] [facility] [address] [place] [address] PCP - General Family Medicine 11/01/21 Potato Pancake Frier Relationship Specialty Start Date End Date Ramandeep Tom, DO [address] [facility] [address] [place] [address] PCP - General Family Medicine 11/01/21 Potato Pancake Frier Relationship Specialty Start Date End Date Ramandeep Tom, DO [address] [facility] [address] [place] [address] PCP - General Family Medicine 11/01/21 Potato Pancake Frier Relationship Specialty Start Date End Date Ramandeep Tom, DO [address] [facility] [address] [place] [address] PCP - General Family Medicine 11/01/21 Potato Pancake Frier Relationship Specialty Start Date End Date Ramandeep Tom, DO [address] [facility] [address] [place] [address] PCP - General Family Medicine 11/01/21 Potato Pancake Frier Relationship Specialty Start Date End Date Ramandeep Tom, DO [address] [place] [address] PCP - General Family Medicine 11/01/21 Potato Pancake Frier Relationship Specialty Start Date End Date Ramandeep Tom, DO [address] [place] [address] PCP - General Family Medicine 11/01/21 Potato Pancake Frier Relationship Specialty Start Date End Date Ramandeep Tom, DO [address] [place] [address] PCP - General Family Medicine 11/01/21 Potato Pancake Frier Relationship Specialty Start Date End Date Ramandeep Tom, DO [address] [facility] [address] [place] [address] PCP - General Family Medicine 11/01/21 Potato Pancake Frier Relationship Specialty Start Date End Date Ramandeep Tom, DO [address] [place] [address] PCP - General Family Medicine 11/01/21 Potato Pancake Frier Relationship Specialty Start Date End Date Ramandeep Tom, DO [address] [facility] [address] [place] [address] PCP - General Family Medicine 11/01/21 Potato Pancake Frier Relationship Specialty Start Date End Date Ramandeep Tom, DO [address] [facility] [address] [place] [address] PCP - General Family Medicine 11/01/21 Potato Pancake Frier Relationship Specialty Start Date End Date Ramandeep Tom, DO [address] [place] [address] PCP - General Family Medicine 11/01/21 Potato Pancake Frier Relationship Specialty Start Date End Date Ramandeep Tom, DO [address] [facility] 1 [place] [address] PCP - General Family Medicine 11/01/21 Dre Monte MD [address] [address] Neurology 07/10/22 Potato Pancake Frier Relationship Specialty Start Date End Date Ramandeep Tom DO [address] [facility] 1 [place] [address] PCP - General Family Medicine 11/01/21 Dre Monte MD [address] [address] Neurology 07/10/22 Team Status: Active Member Role Status Dates [facility] Family Provider Active No Primary Care Physician Primary Care Provider Active Team Status: Inactive Member Role Status Dates No Primary Care Physician Primary Care Provider, Refer ring Provider Active Ismael YEPEZ PA Attending Provider Active Team Status: Inactive Member Role Status Dates No Primary Care Physician Primary Care Provider Active Ismael YEPEZ PA Attending Provider Active [employer] Relationship Specialty Start Date End Date Ramandeep Tom DO [address] [facility], [place] [address] [place] [address] PCP - General 11/04/18 Ramandeep Tom DO [address] [place] [address], [address] [address] [place] [address] PCP - MSSP ACO Attributed Provider 08/17/21 Potato Pancake Frier Relationship Specialty Start Date End Date Ramandeep Tom DO [address] [place] [address] [address] [place] [address] PCP - General Family Medicine 11/01/21 Dre Monte MD [address] [place] [address] Neurology 07/10/22 Potato Pancake Frier Relationship Specialty Start Date End Date Ramandeep Tom DO [address] [facility], [place] [address] [place] [address] PCP - General 11/04/18 Ramandeep Tom DO [address] [facility], [place] [address] [place] [address] PCP - MSSP ACO Attributed Provider 08/17/21 Potato Pancake Frier Relationship Specialty Start Date End Date Ramandeep Tom DO [address] [facility] [address] [place] [address] PCP - General Family Medicine 11/01/21 Dre Monte MD [address] [place] [address] Neurology 07/10/22 Potato Pancake Frier Relationship Specialty Start Date End Date Ramandeep Tom DO [address] [facility] [address] [place] [address] PCP - General Family Medicine 11/01/21 Dre Monte MD [address] [place], [place] [id number] Neurology 07/10/22 Potato Pancake Frier Relationship Specialty Start Date End Date Ramandeep Tom DO [address] [facility] [address] [place] [address] PCP - General Family Medicine 11/01/21 Dre Monte MD [address] [place] [address] Neurology 07/10/22 Potato Pancake Frier Relationship Specialty Start Date End Date Ramandeep Tom DO [address] [address] [place] [address] PCP - General Family Medicine 11/01/21 Dre Monte MD [address] [place] [address] Neurology 07/10/22 Potato Pancake Frier Relationship Specialty Start Date End Date Ramandeep Tom DO [address] [facility] [address] [place] [address] PCP - General Family Medicine 11/01/21 Dre Monte MD [address] [place] [address] Neurology 07/10/22 Potato Pancake Frier Relationship Specialty Start Date End Date Ramandeep Tom DO [address] [facility] [address] [place] [address] PCP - General Family Medicine 11/01/21 Dre Monte MD [address] [place] [address] Neurology 07/10/22 Potato Pancake Frier Relationship Specialty Start Date End Date Ramandeep Tom DO [address] [facility] [address] [place] [address] PCP - General Family Medicine 11/01/21 Dre Monte MD [address] [place] [id number] Neurology 07/10/22 Potato Pancake Frier Relationship Specialty Start Date End Date Ramandeep Tom DO [address] [facility], [place] [address] [place] [address] PCP - General 11/04/18 Ramandeep Tom DO [address] [facility], [place] [address] [place] [address] PCP - MSSP ACO Attributed Provider 08/17/21 Potato Pancake Frier Relationship Specialty Start Date End Date Ramandeep Tom DO [address] [facility], [place] [address] [place] [address] PCP - General 11/04/18 Ramandeep Tom DO [address] [facility], [place] [address] [place] [address] PCP - MSSP ACO Attributed Provider 08/17/21 Potato Pancake Frier Relationship Specialty Start Date End Date Ramandeep Tom DO [address] [facility], [place] [address] [place] [address] PCP - General 11/04/18 Ramandeep Tom DO [address] [facility], [place] [address] [place] [address] PCP - MSSP ACO Attributed Provider 08/17/21 Potato Pancake Frier Relationship Specialty Start Date End Date Ramandeep Tom DO [address] [facility], [place] [address] [place] [address] PCP - General 11/04/18 Ramandeep Tom DO [address] [facility], [place] [address] [place] [address] PCP - MSSP ACO Attributed Provider 08/17/21 Potato Pancake Frier Relationship Specialty Start Date End Date Ramandeep Tom DO [address] [place] [address] PCP - MSSP ACO Attributed Provider 08/17/21 Michelle Menchaca MD [address] [facility], [place] [address] [place] [address] PCP - General Family Medicine 08/06/24 Potato Pancake Frier Relationship Specialty Start Date End Date Ramandeep Tom DO [address] [place] [address] PCP - MSSP ACO Attributed Provider 08/17/21 Michelle Menchaca MD [address] [facility], [place] [address] [place] [address] PCP - General Family Medicine 08/06/24 Potato Pancake Frier Relationship Specialty Start Date End Date Ramandeep Lobo DO [address] [facility] [address] [place] [address] PCP - General Family Medicine 11/01/21 Dre Monte MD [address] [address] Neurology 07/10/22 Potato Pancake Frier Relationship Specialty Start Date End Date Ramandeep Lobo DO [address] [facility] 1 [place] [address] PCP - General Family Medicine 11/01/21 Dre Monte MD [address] [place], [place] [id number] Neurology 07/10/22 Potato Pancake Frier Relationship Specialty Start Date End Date Dre Monte MD [address] [place] [id number] Neurology 07/10/22 Michelle Menchaca MD [address] [facility], [place] [address] [place] [address] Family Medicine 11/04/24 Potato Pancake Frier Relationship Specialty Start Date End Date Ramandeep Tom DO [address] [facility] [address] [place] [address] PCP - MSSP ACO Attributed Provider 08/17/21 Michelle Menchaca MD [address] [facility], [place] [address] [place] [address] PCP - General Family Medicine 08/06/24 Team [...] BE BASED ON THE PRIMARY CLINICAL RECORDS. [facility]. provides no warranty or guarantee of the accuracy or completeness of information in this document.
== END | disposition home or self-care (01) ==
LOC: RAD 11:04
PROVIDERS: Referring Provider Physician Assistant Surgical; Visit Provider Physician Assistant Surgical
DX: R07.9 Chest pain, unspecified (principal)
CPT/HCPCS: 71046